=== PATIENT | male | born 1935 | race Caucasian/White ===

== ENCOUNTER 2017-08-12 14:33 | Inpatient (IN) | payer MEDICARE, OTHER ==
[2017-08-12] MEDS ORDERED: Sodium Chloride 0.9% 50 ML IV ONE (14:51)
[2017-08-12] MEDS ORDERED: Iodixanol 320 MG/ML 100 ML BOTTLE IV ONE (14:51)
[2017-08-12] MEDS: Sodium Chloride 0.9% 1,000 ML IV SCH (15:00)
--- NOTE | 2017-08-12 15:00 | ED PDOC ---
HPI:STROKE - Time Time: 14:43 - Historian Historian: Family, EMS - Chief Complaint Chief Complaint: Mental status change - Onset Date: 08/12/17 Onset: Hours - Timing Timing: Currently Symptomatic - Notes: Notes:: 82yo male, brought to ER for evaluation due to altered mental status. Patient was last seen normal at 12:30pm today by his granddaughter; per patient's granddaughter, she was informed at 1345 by her family member that they are calling the ambulance as the patient was altered. Per EMS patient was verbal en route to the ER however in the ER, the patient is non-verbal and AO X 0. Full HPI and ROS limited due to clinical condition. NIHSS Stroke Scale - Date/Time Evaluation Performed Date Performed: 08/12/17 Time Performed: 14:45 When Was NIHSS Performed: Code Stroke - How Severe is the Stroke Level of Consciousness: 0=Alert LOC to Questions: 2=Neither correct LOC to commands: 2=Neither correct Best Gaze: 0=Normal Visual: 0=No visual loss Facial: 2=Partial (lower face paralysis) Motor Arm - Left: 0=No drift Motor Arm - Right: 3=No effort against gravity (falls immediately) Motor Leg - Left: 3=No effort against gravity (falls immediately) Motor Leg - Right: 3=No effort against gravity (falls immediately) Limb Ataxia: 0=Absent Sensory: 0=Normal Best Language: 3=Mute Dysarthia: 0=Normal articulation Extinction & Inattention (Neglect): 0=Normal, no object Score: 18 NIHSS Stroke Scale 2 - Date/Time Evaluation Performed Date Performed: 08/12/17 Time Performed: 15:15 When Was NIHSS Performed: Re-evaluation - How Severe is the Stroke Level of Consciousness: 0=Alert LOC to Questions: 0=Both comments correct LOC to commands: 0=Obeys both correctly Best Gaze: 0=Normal Visual: 0=No visual loss Facial: 0=Normal Motor Arm - Left: 0=No drift Motor Arm - Right: 0=No drift Motor Leg - Left: 0=No drift Motor Leg - Right: 0=No drift Limb Ataxia: 0=Absent Sensory: 0=Normal Best Language: 0=No aphasia Dysarthia: 0=Normal articulation Extinction & Inattention (Neglect): 0=Normal, no object Score: 0 rTPA Inclusion/Exclusion - Refusal of Treatment Patient Refused Treatment: No - Inclusion Criteria for Altepase Patient is 18 years or Older: Yes The Clinical Diagnosis of Ischemic Stroke That is Causing a Potentially Disabling Neurological Deficit: No Time of Onset is Well Established to be Less Than 270 Minute Before Treatment Would Begin: Yes Risk/Benefit Discussed With Patient/Family Member Present: No - Warning to TPA With Conditions Condition: Rapid Improvement, Age Greater Than 75 years Past Medical History Reviewed: Historical Data, Nursing Documentation, Vital Signs - Medical History PMH: Arthritis, CAD, CHF, COPD, Diabetes (type II), HTN, Hypercholesterolemia, Malignancy (colon), Chronic Kidney Disease, TIA (Per history in ~1988) Denies: HIV - Surgical History Surgical History: Coronary Stent (x4) - Family History Family History: States: Unknown Family Hx - Home Medications Home Medications: Ambulatory Orders Medication Instructions Recorded Albuterol 0.083% [Albuterol 0.083% 3 ml IH Q6 PRN 08/12/17 Inhal Bere (2.5 mg/3 ml) UD] Carvedilol [Coreg] 12.5 mg PO Q12 08/12/17 Clopidogrel [Plavix] 75 mg PO DAILY 08/12/17 Ferrous Sulfate [Feosol] 325 mg PO TID 08/12/17 Fluticasone/Salmeterol 250/50 1 puff IH Q12 08/12/17 [Advair Diskus 250/50] Furosemide [Lasix] 80 mg PO DAILY 08/12/17 Insulin Aspart, Recombinant 20 unit SC BID 08/12/17 [Novolog] Latanoprost 0.005% Opht [Xalatan 1 drop EACHEYE HS 08/12/17 Opht] Lisinopril [Zestril] 20 mg PO DAILY 08/12/17 Multivitamin [Multi-Vitamin Daily] 1 tab PO DAILY 08/12/17 Simvastatin [Zocor] 20 mg PO HS 08/12/17 - Allergies Allergies/Adverse Reactions: Allergies Allergy/AdvReac Type Severity Reaction Status Date / Time morphine Allergy VOMITING Verified 02/02/16 19:03 Review of Systems Review Of Systems: ROS cannot be obtained secondary to pt's inabilty to answer questions. Neurological: Positive for: Altered Mental Status Physical Exam - Reviewed Nursing Documentation Reviewed: Yes Vital Signs Reviewed: Yes - Physical Exam Appears: Positive for: Well, No Acute Distress Head Exam: Positive for: ATRAUMATIC, NORMAL INSPECTION Skin: Positive for: Normal Color, Warm, Dry Eye Exam: Positive for: Normal appearance, EOMI, PERRL Neck: Positive for: Supple Cardiovascular/Chest: Positive for: Regular Rate, Rhythm Respiratory: Positive for: Normal Breath Sounds. Negative for: Wheezing Gastrointestinal/Abdominal: Positive for: Soft. Negative for: Tenderness Neurologic/Psych: Positive for: Facial Droop (right sided). Negative for: Alert , Oriented (x 0) - Laboratory Results Result Diagrams: 08/13/17 08:58 08/13/17 08:58 - ECG ECG: Positive for: Interpreted By Me, Viewed By Me ECG Rhythm: Positive for: Sinus Bradycardia Interpretation Of ECG: PVC's Rate: 58 O2 Sat by Pulse Oximetry: 97 (RA) Pulse Ox Interpretation: Normal - Core Measure Core Measure Indicators: Code Stroke - Critical Care Total Time (In Min): 45 Medical Decision Making Medical Decision Making: Impression: Stroke Plan: -- CT Head w/o contrast -- CTA head and neck -- Labs -- CXR -- EKG -- IV Fluids Progress: [address] Thomas, who will evaluate patient in the ER. 1455 CT Head FINDINGS: HEMORRHAGE: No intracranial hemorrhage. BRAIN: Mild diffuse cerebral atrophy chronic microangiopathy are reiterated and appear age-appropriate. No interval suspicious findings are identified that would indicate an acute or subacute brain infarction by standard CT criteria. Small chronic infarcts in the right frontal and upper left occipital lobes are identified as well as the pontine chronic lacune. No mass effect or suspicious extra-axial fluid collection. VENTRICLES: Unremarkable. No hydrocephalus. CALVARIUM: Unremarkable. PARANASAL SINUSES: Unremarkable as visualized. No significant inflammatory changes. MASTOID AIR CELLS: Unremarkable as visualized. No inflammatory changes. OTHER FINDINGS: None. IMPRESSION: Stable age related neuro degenerative changes are identified as well as a small chronic lobar infarctions at the right frontal and left occipital lobes and a pontine chronic lacune. No intracranial hemorrhage or mass effect. Follow-up CT or MRI are available as clinically warranted. Findings discussed with Dr. Jeffreis with written down and read back verification 08/12/2017 2:55 p.m.. 1531 CXR FINDINGS: LUNGS: No active pulmonary disease. PLEURA: No significant pleural effusion identified, no pneumothorax apparent. CARDIOVASCULAR: No sclerotic aortic calcifications. Cardiomediastinal silhouette stably enlarged. OSSEOUS STRUCTURES: Unchanged. VISUALIZED UPPER ABDOMEN: Left upper quadrant surgical clips. OTHER FINDINGS: None. IMPRESSION: No active disease. Accession No. : [id number] Patient Name / ID : MIKE CASTANEDA / [id number] Exam Date : 08/12/2017 14:53:11 ( Approved ) Study Comment : Sex / Age : M / 82Y Creator : Lalo Phipps MD Dictator : Lalo Phipps MD Polisher Eyeglass Frames : Hot Billet Shear Operator : Lalo Phipps MD Approver2 : Report Date : 08/12/2017 16:21:04 My Comment : PROCEDURE: CT Angiography of the Brain and Neck. HISTORY: R weakness COMPARISON: Carotid ultrasound 05/02/2011. TECHNIQUE: CT angiography of the intracranial and neck arteries was performed. Coronal and sagittal maximum intensity projection reformatted images were generated. Contrast Dose: Visipaque 320, 99 cc Radiation dose:Total exam DLP = 738.45 mGy-cm. This CT exam was performed using one or more of the following dose reduction techniques: Automated exposure control, adjustment of the mA and/or kV according to patient size, and/or use of iterative reconstruction technique. FINDINGS: INTERNAL CEREBRAL ARTERIES: There is [id number] atherosclerosis at the right ICA cavernous segment with the skull base, petrous, and supraclinoid segments otherwise widely patent. The proximal to mid skullbase left ICA is occluded with some retrograde filling by collateralization through the [place] Mishra into the left cavernous and distal mid skullbase segment. ANTERIOR CEREBRAL ARTERIES: Unremarkable. A1 and A2 segments are widely patent. Smaller distal branches unremarkable, as visualized. MIDDLE CEREBRAL ARTERIES: Subtle diminished attenuation of the left M1 and M2 is well as perisylvian branches of the MCA is apparent due to left ICA occlusion with collateralization affectively from the right ICA and communicating arteries. The left M1 and M2 ICA branches are widely opacified as well as perisylvian branches. POSTERIOR CIRCULATION: Basilar Artery: Unremarkable. Distal Vertebral Arteries: Unremarkable. Posterior Cerebral Arteries: Unremarkable. Posterior Inferior Cerebellar Arteries: Unremarkable. NECK CTA: Common Carotid arteries: The bilateral common carotid appear widely patent from their origins to their bifurcations with no significant stenosis appreciated. No evidence to suggest common carotid artery dissection. A right common carotid artery wall stent is identified. Internal Carotid arteries: No significant stenosis is appreciated throughout the right cervical internal carotid artery segments and there is no evidence of dissection either. 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 Wall stent is identified in the distal common carotid artery extending into the proximal right ICA. External Carotid arteries: Appear unremarkable bilaterally. Vertebral arteries: The bilateral vertebral arteries appear normal in caliber from their origins to their junction with the basilar artery. Limited proximal bilateral vertebral artery atherosclerosis noted. No significant stenosis or definite pattern of dissection. ANEURYSM/ VASCULAR MALFORMATIONS: None. OTHER FINDINGS: None. IMPRESSION: 1. Occluded left ICA, long-standing finding dating back at least to prior carotid ultrasound dated 05/02/2011. The left NATE and MCA are collateralized and patent without stenosis or occlusion. Left MCA opacification appears mildly diffusely diminished compared to contralateral right MCA and bilateral NATE enhancement. This may be a function of hypoplastic left posterior communicating artery. 2. 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 Patent right ICA and bilateral common carotid arteries throughout cervical distribution. Mild bilateral proximal vertebral artery atherosclerosis. Pt evaluated by Dr. Thomas in ED. 1532 Case discussed with FP resident, patient admitted under Dr. Brewer for TIA. Scribe attestation: Documented by Adrienne Perkins acting as a scribe for Elissa Jeffries MD. Provider attestation: All medical record entries made by the Scribe were at my direction and personally dictated by me. I have reviewed the chart and agree that the record accurately reflects my personal performance of the history, physical exam, medical decision making, and the department course for this patient. I have also personally directed, reviewed, and agree with the discharge instructions and disposition. Disposition - Clinical Impression Clinical Impression: TIA (transient ischemic attack) - Patient ED Disposition Is Patient to be Admitted: Yes - Disposition Disposition Time: 15:32 Condition: GUARDED - Pt Status Changed To: Hospital Disposition Of: Inpatient - Admit Certification Admit to Inpatient:: After my assessment, the patient will require hospitalization for at least two midnights. This is because of the severity of symptoms shown, intensity of services needed, and/or the medical risk in this patient being treated as an outpatient. - POA Present On Arrival: None
[2017-08-12 15:04] LABS: BASO % 0.7 % (0.0-2.0); EOS # 0.4 K/uL (0.0-0.7); EOS % 5.9 % (0.0-4.0); HEMOGLOBIN 10.6 g/dL (12.0-18.0); LYMPH # 1.2 K/uL (1.0-4.3); LYMPH % 19.3 % (20.0-40.0); MEAN CELL VOLUME 91.1 fl (80.0-94.0); MEAN CORPUSCULAR HEMOGLOBIN 30.8 pg (27.0-31.0); MEAN CORPUSCULAR HGB CONC 33.8 g/dL (33.0-37.0); MEAN PLATELET VOLUME 8.2 fl (7.2-11.7); MONO # 0.9 K/uL (0.0-0.8); MONO % 13.3 % (0.0-10.0); NEUT # 3.9 K/uL (1.8-7.0); NEUT % 60.8 % (50.0-75.0); RBC 3.45 Mil/uL (4.40-5.90); RED CELL DISTRIBUTION WIDTH 13.9 % (11.5-14.5); WHITE BLOOD COUNT 6.4 K/uL (4.8-10.8)
[2017-08-12 15:17] LABS: ALBUMIN 3.2 g/dL (3.5-5.0); CALCIUM 9.1 mg/dL (8.4-10.2)
[2017-08-12 15:18] LABS: INR 1.1 (0.9-1.2); PARTIAL THROMBOPLASTIN TIME 32.3 Seconds (25.6-37.1); PROTHROMBIN TIME 11.8 Seconds (9.8-13.1)
--- NOTE | 2017-08-12 15:28 | RAD ---
HISTORY: Code Stroke COMPARISON: Chest radiograph dated 02/02/2016. FINDINGS: LUNGS: No active pulmonary disease. PLEURA: No significant pleural effusion identified, no pneumothorax apparent. CARDIOVASCULAR: No sclerotic aortic calcifications. Cardiomediastinal silhouette stably enlarged. OSSEOUS STRUCTURES: Unchanged. VISUALIZED UPPER ABDOMEN: Left upper quadrant surgical clips. OTHER FINDINGS: None. IMPRESSION: No active disease.
[2017-08-12 15:31] LABS: TROPONIN I 0.058 ng/mL (0.00-0.120)
--- NOTE | 2017-08-12 15:59 | CP.PCM.CON ---
History of Present Illness - History of Present Illness History of Present Illness: Mr. Ibarra is an 82-year-old man with a past medical history of HTN, CAD, HLD, who was brought in by EMS for aphasia and right side weakness that was discovered at around 1:40 PM. According to the patient's daughter, he was normal at around 9 AM when she went to work. The patient was evaluated in the ED, and a "code stroke" was called. His NIHSS was [address] scan of the head did not show any acute findings. He returned to the ED after CT head, and by the time I saw him, all of his symptoms has resolved and he was back to baseline with an NIHSS of 0. He was not a candidate for IV tPA due to complete resolution of symptoms. Review of Systems - Review of Systems All systems: reviewed and no additional remarkable complaints except Past Patient History - Infectious Disease Hx of Infectious Diseases: None - Tetanus Immunizations Tetanus Immunization: Unknown - Past Medical History & Family History Past Medical History?: Yes - Past Social History Smoking Status: Former Smoker - CARDIAC Hx Congestive Heart Failure: Yes Hx Hypercholesterolemia: Yes Hx Hypertension: Yes - PULMONARY Hx Chronic Obstructive Pulmonary Disease (COPD): Yes - NEUROLOGICAL Hx Transient Ischemic Attacks (TIA): Yes (Per history in ~1988) - HEENT 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) Hx Cataracts: Yes (left eye) - RENAL Hx Chronic Kidney Disease: Yes - ENDOCRINE/METABOLIC Hx Diabetes Mellitus Type 2: Yes (On insulin at home) - HEMATOLOGICAL/ONCOLOGICAL Hx Human Immunodeficiency Virus (HIV): No - INTEGUMENTARY Hx Dermatological Problems: No - MUSCULOSKELETAL/RHEUMATOLOGICAL Hx Arthritis: Yes - GASTROINTESTINAL Hx Gastrointestinal Disorders: No - GENITOURINARY/GYNECOLOGICAL Hx Genitourinary Disorders: No - PSYCHIATRIC Hx Psychophysiologic Disorder: No Hx Substance Use: No - SURGICAL HISTORY Hx Coronary Stent: Yes (x4) - ANESTHESIA Hx Anesthesia: Yes Hx Anesthesia Reactions: No Meds Allergies/Adverse Reactions: Allergies Allergy/AdvReac Type Severity Reaction Status Date / Time morphine Allergy VOMITING Verified 02/02/16 19:03 - Medications Medications: Current Medications Sodium Chloride (Sodium Chloride 0.9%) 1,000 mls @ 100 mls/hr IV .Q10H TREY Physical Exam - Neurological Exam Neurological exam: Alert, CN II-XII Intact, Oriented x3, Reflexes Normal Additional comments: Normal neurological examination, with slightly slurred speech due to poor dentition. NIHSS is 0. Results - Vital Signs Recent Vital Signs: Last Vital Signs Temp 98.6 F 08/12/17 15:11 Pulse 60 08/12/17 15:52 Resp 25 H 08/12/17 15:52 BP 175/74 H 08/12/17 15:52 Pulse Ox 100 08/12/17 15:52 - Labs Result Diagrams: 08/12/17 14:35 08/12/17 14:35 Labs: Laboratory Results - last 24 hr 08/12/17 08/12/17 08/12/17 14:35 14:35 14:35 WBC 6.4 RBC 3.45 L Hgb 10.6 L D Hct 31.4 L MCV 91.1 MCH 30.8 MCHC 33.8 RDW 13.9 Plt Count 347 MPV 8.2 Neut % (Auto) 60.8 Lymph % (Auto) 19.3 L [place] % (Auto) 13.3 H Eos % (Auto) 5.9 H Baso % (Auto) 0.7 Neut # (Auto) 3.9 Lymph # (Auto) 1.2 [place] # (Auto) 0.9 H Eos # (Auto) 0.4 Baso # (Auto) 0.0 PT 11.8 INR 1.1 APTT 32.3 Sodium 138 Potassium 4.4 Chloride 105 Carbon Dioxide 28 Anion Gap 9 L BUN 26 H Creatinine 1.6 H Est GFR ( Amer) 50 Est GFR (Non-Af Amer) 42 POC Glucose (mg/dL) Random Glucose 136 H Calcium 9.1 Total Bilirubin 0.9 AST 32 ALT 29 Alkaline Phosphatase 83 Troponin I 0.0580 Total Protein 6.5 Albumin 3.2 L Globulin 3.3 Albumin/Globulin Ratio 1.0 Triglycerides 138 D Cholesterol 213 H LDL Cholesterol Direct 131 H HDL Cholesterol 27 L Blood Type Antibody Screen BBK History Checked 08/12/17 08/12/17 08/12/17 14:35 14:36 15:04 WBC RBC Hgb Hct MCV MCH MCHC RDW Plt Count MPV Neut % (Auto) Lymph % (Auto) [place] % (Auto) Eos % (Auto) Baso % (Auto) Neut # (Auto) Lymph # (Auto) [place] # (Auto) Eos # (Auto) Baso # (Auto) PT INR APTT Sodium Potassium Chloride Carbon Dioxide Anion Gap BUN Creatinine Est GFR ( Amer) Est GFR (Non-Af Amer) POC Glucose (mg/dL) 161 H 101 Random Glucose Calcium Total Bilirubin AST ALT Alkaline Phosphatase Troponin I Total Protein Albumin Globulin Albumin/Globulin Ratio Triglycerides Cholesterol LDL Cholesterol Direct HDL Cholesterol Blood Type Cancelled Antibody Screen Cancelled BBK History Checked Cancelled Assessment & Plan (1) TIA (transient ischemic attack) Assessment and Plan: The patient is high risk for stroke and should be admitted for further work-up and treatment. I recommend the followin. Telemetry 2. MRI of the brain without contrast 3. Load with Plavix 300 mg PO once and Aspirin 81 mg PO. Continue Aspirin 81 mg daily and Plavix 75 mg daily for 21 days 3. Check lipid panel, HbA1c, B12, folate, vitamin D levels 4. Fluids with NS at 100 mL/hr 5. Permissive HTN, (only treat BP higher than 220/110 mm Hg) 6. DVT Px 7. PT/OT eval and treatment if needed 8. Echocardiogram 9. Case management consult Thank you. Status: Acute Priority: High
--- NOTE | 2017-08-12 16:22 | CT ---
PROCEDURE: CT Angiography of the Brain and Neck. HISTORY: R weakness COMPARISON: Carotid ultrasound 05/02/2011. TECHNIQUE: CT angiography of the intracranial and neck arteries was performed. Coronal and sagittal maximum intensity projection reformatted images were generated. Contrast Dose: Visipaque 320, 99 cc Radiation dose:Total exam DLP = 738.45 mGy-cm. This CT exam was performed using one or more of the following dose reduction techniques: Automated exposure control, adjustment of the mA and/or kV according to patient size, and/or use of iterative reconstruction technique. FINDINGS: INTERNAL CEREBRAL ARTERIES: There is [id number] atherosclerosis at the right ICA cavernous segment with the skull base, petrous, and supraclinoid segments otherwise widely patent. The proximal to mid skullbase left ICA is occluded with some retrograde filling by collateralization through the [place] into the left cavernous and distal mid skullbase segment. ANTERIOR CEREBRAL ARTERIES: Unremarkable. A1 and A2 segments are widely patent. Smaller distal branches unremarkable, as visualized. MIDDLE CEREBRAL ARTERIES: Subtle diminished attenuation of the left M1 and M2 is well as perisylvian branches of the MCA is apparent due to left ICA occlusion with collateralization affectively from the right ICA and communicating arteries. The left M1 and M2 ICA branches are widely opacified as well as perisylvian branches. POSTERIOR CIRCULATION: Basilar Artery: Unremarkable. Distal Vertebral Arteries: Unremarkable. Posterior Cerebral Arteries: Unremarkable. Posterior Inferior Cerebellar Arteries: Unremarkable. NECK CTA: Common Carotid arteries: The bilateral common carotid appear widely patent from their origins to their bifurcations with no significant stenosis appreciated. No evidence to suggest common carotid artery dissection. A right common carotid artery wall stent is identified. Internal Carotid arteries: No significant stenosis is appreciated throughout the right cervical internal carotid artery segments and there is no evidence of dissection either. 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 Wall stent is identified in the distal common carotid artery extending into the proximal right ICA. External Carotid arteries: Appear unremarkable bilaterally. Vertebral arteries: The bilateral vertebral arteries appear normal in caliber from their origins to their junction with the basilar artery. Limited proximal bilateral vertebral artery atherosclerosis noted. No significant stenosis or definite pattern of dissection. ANEURYSM/ VASCULAR MALFORMATIONS: None. OTHER FINDINGS: None. IMPRESSION: 1. Occluded left ICA, long-standing finding dating back at least to prior carotid ultrasound dated 05/02/2011. The left NATE and MCA are collateralized and patent without stenosis or occlusion. Left MCA opacification appears mildly diffusely diminished compared to contralateral right MCA and bilateral NATE enhancement. This may be a function of hypoplastic left posterior communicating artery. 2. 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 Patent right ICA and bilateral common carotid arteries throughout cervical distribution. Mild bilateral proximal vertebral artery atherosclerosis.
[2017-08-12] MEDS ORDERED: Albuterol 0.083% Inhal Sol (2.5 mg/3 mL) UD IH PRN (17:20)
[2017-08-12] MEDS ORDERED: Enoxaparin 30 mg Syringe SC SCH (18:00)
--- NOTE | 2017-08-12 18:57 | CP.PCM.HP ---
History of Present Illness - History of Present Illness History of Present Illness: This is 82 y/o male with PMH of Diastolic Heart Failure, COPD, CAD s/p stent x 4 , CKD, DM2 on insulin, HTN, HLD, Colon CA s/p surgery (1961), TIA/CVA (1988), left eye blindness/diabetic retinopathy admitted for evaluation and treatment of TIA. Patient was helena in by EMS for aphasia and right side weakness that was discovered at around 1:40 PM. As per grand daughter, patient was fine till 11:00pm, he was c/o some weakness since yesterday but was able to verbally communicate until 11:00pm. Patient took his medication this afternoon and started feeling dizzy, patient was awake but unable to verbally communicate with family and was unable to move his body. Patient denies any chest apin, SOB , abdominal pain, urinary symptoms, palpitations or f/c/n/v. (Patient is a poor historian, grand daughter is present but not aware of his medical conditions, may talk to patient's daughter tomorrow for better PMH) PMD: [facility], last visit in 2016 PMH: Diastolic Heart Failure, COPD, CAD s/p stent x 4, CKD, DM2 on insulin, HTN, HLD , Colon CA s/p surgery (1961), TIA/CVA (1988), left eye blindness/diabetic retinopathy PSHx: Cardiac Cath, Stents placement Colon CA surgery (1961) - Type unclear FamHx: Father age 56 - Cause unknown Mother age 45 - [place] SocialHx: Lives with , kids, grandson Remote history of ETOH (beer) and Tobacco use --> States last use >40yrs ago before history of colon CA surgery Denied illicit drug use Currently on disability Allergy: Morphine - "Headache/N/V" Home Medication: See med recs ER Course: Afebrile, 60HR, 25RR, BP 175/74, Spo2 100% AO X 0 CT head: Stable age related neuro degenerative changes are identified as well as a small chronic lobar infarctions at the right frontal and left occipital lobes and a pontine chronic lacune. No intracranial hemorrhage or mass effect. Follow-up CT or MRI are available as clinically warranted. CXR: No active disease. CT head and neck: Occluded left ICA chronic, Mild proximal b/l vertebral artery atherosclerosis EKG:Sinus bradycardia with occasional premature ventricular complexes,Left ventricular hypertrophy with repolarization abnormality IVF S/p Aspirin 325mg NIHSS was 12 initially, NIHSS 0, No TPA Present on Admission - Present on Admission Any Indicators Present on Admission: No History of DVT/PE: No History of Uncontrolled Diabetes: No Urinary Catheter: No Decubitus Ulcer Present: No Past Patient History - Infectious Disease Hx of Infectious Diseases: None - Tetanus Immunizations Tetanus Immunization: Unknown - Past Medical History & Family History Past Medical History?: Yes - Past Social History Smoking Status: Former Smoker - CARDIAC Hx Cardiac Disorders: Yes - PULMONARY Hx Chronic Obstructive Pulmonary Disease (COPD): Yes - NEUROLOGICAL Hx Transient Ischemic Attacks (TIA): Yes (Per history in ~1988) - HEENT 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) Hx Cataracts: Yes (left eye) - RENAL Hx Chronic Kidney Disease: Yes - ENDOCRINE/METABOLIC Hx Diabetes Mellitus Type 2: Yes (On insulin at home) - HEMATOLOGICAL/ONCOLOGICAL Hx Human Immunodeficiency Virus (HIV): No - INTEGUMENTARY Hx Dermatological Problems: No - MUSCULOSKELETAL/RHEUMATOLOGICAL Hx Arthritis: Yes - GASTROINTESTINAL Hx Gastrointestinal Disorders: No - GENITOURINARY/GYNECOLOGICAL Hx Genitourinary Disorders: No - PSYCHIATRIC Hx Psychophysiologic Disorder: No - SURGICAL HISTORY Hx Coronary Stent: Yes (x4) - ANESTHESIA Hx Anesthesia: Yes Hx Anesthesia Reactions: No Meds Allergies/Adverse Reactions: Allergies Allergy/AdvReac Type Severity Reaction Status Date / Time morphine Allergy VOMITING Verified 02/02/16 19:03 Physical Exam - Constitutional Appears: No Acute Distress Additional comments: Verbally responsive, clear speech Follows command - Head Exam Head Exam: NORMAL INSPECTION - Eye Exam Eye Exam: EOMI Additional comments: left eye blindness Right eye, pinpoint pupil with minimum reaction to light - ENT Exam ENT Exam: Mucous Membranes Moist - Neck Exam Neck exam: Positive for: Normal Inspection - Respiratory Exam Respiratory Exam: Clear to Auscultation Bilateral, NORMAL BREATHING PATTERN. absent: Wheezes - Cardiovascular Exam Cardiovascular Exam: REGULAR RHYTHM - GI/Abdominal Exam GI & Abdominal Exam: Normal Bowel Sounds, Soft. absent: Distended, Hernia, Mass , Tenderness - Extremities Exam Additional comments: lower extremities atrophy (doesn't ambulate that much at home), dermatitis present b/l No edema, no open wound or bleeding, sensory intact b/l LE and UE - Back Exam Back exam: NORMAL INSPECTION. absent: CVA tenderness (L), CVA tenderness (R) Additional comments: B/l right UE and LE 3/5 B/l left UE and LE 4/5 - Neurological Exam Neurological exam: Alert, CN II-XII Intact, Oriented x3, Reflexes Normal Additional comments: Patient wasn't able to stand up without support, Couldn't assess Pronetor drift or gaits (As per patient, thats his baseline strength ) - Psychiatric Exam Psychiatric exam: Normal Affect, Normal Mood - Skin Skin Exam: Dry, Intact, Normal Color, Warm Results - Vital Signs Recent Vital Signs: Last Vital Signs Temp 97.5 F L 08/12/17 18:24 Pulse 63 08/12/17 18:24 Resp 20 08/12/17 18:24 BP 119/54 L 08/12/17 18:24 Pulse Ox 100 08/12/17 17:31 - Labs Result Diagrams: 08/12/17 14:35 08/12/17 14:35 Labs: Laboratory Results - last 24 hr 08/12/17 08/12/17 08/12/17 14:35 14:35 14:35 WBC 6.4 RBC 3.45 L Hgb 10.6 L D Hct 31.4 L MCV 91.1 MCH 30.8 MCHC 33.8 RDW 13.9 Plt Count 347 MPV 8.2 Neut % (Auto) 60.8 Lymph % (Auto) 19.3 L Bowman % (Auto) 13.3 H Eos % (Auto) 5.9 H Baso % (Auto) 0.7 Neut # (Auto) 3.9 Lymph # (Auto) 1.2 Bowman # (Auto) 0.9 H Eos # (Auto) 0.4 Baso # (Auto) 0.0 PT 11.8 INR 1.1 APTT 32.3 Sodium 138 Potassium 4.4 Chloride 105 Carbon Dioxide 28 Anion Gap 9 L BUN 26 H Creatinine 1.6 H Est GFR ( Amer) 50 Est GFR (Non-Af Amer) 42 POC Glucose (mg/dL) Random Glucose 136 H Calcium 9.1 Total Bilirubin 0.9 AST 32 ALT 29 Alkaline Phosphatase 83 Troponin I 0.0580 Total Protein 6.5 Albumin 3.2 L Globulin 3.3 Albumin/Globulin Ratio 1.0 Triglycerides 138 D Cholesterol 213 H LDL Cholesterol Direct 131 H HDL Cholesterol 27 L Blood Type Antibody Screen BBK History Checked 08/12/17 08/12/17 08/12/17 14:35 14:36 15:04 WBC RBC Hgb Hct MCV MCH MCHC RDW Plt Count MPV Neut % (Auto) Lymph % (Auto) Bowman % (Auto) Eos % (Auto) Baso % (Auto) Neut # (Auto) Lymph # (Auto) Bowman # (Auto) Eos # (Auto) Baso # (Auto) PT INR APTT Sodium Potassium Chloride Carbon Dioxide Anion Gap BUN Creatinine Est GFR ( Amer) Est GFR (Non-Af Amer) POC Glucose (mg/dL) 161 H 101 Random Glucose Calcium Total Bilirubin AST ALT Alkaline Phosphatase Troponin I Total Protein Albumin Globulin Albumin/Globulin Ratio Triglycerides Cholesterol LDL Cholesterol Direct HDL Cholesterol Blood Type Cancelled Antibody Screen Cancelled BBK History Checked Cancelled 08/12/17 15:48 WBC RBC Hgb Hct MCV MCH MCHC RDW Plt Count MPV Neut % (Auto) Lymph % (Auto) Bowman % (Auto) Eos % (Auto) Baso % (Auto) Neut # (Auto) Lymph # (Auto) Bowman # (Auto) Eos # (Auto) Baso # (Auto) PT INR APTT Sodium Potassium Chloride Carbon Dioxide Anion Gap BUN Creatinine Est GFR ( Amer) Est GFR (Non-Af Amer) POC Glucose (mg/dL) Random Glucose Calcium Total Bilirubin AST ALT Alkaline Phosphatase Troponin I Total Protein Albumin Globulin Albumin/Globulin Ratio Triglycerides Cholesterol LDL Cholesterol Direct HDL Cholesterol Blood Type O POSITIVE Antibody Screen Negative BBK History Checked Patient has bt Assessment & Plan - Assessment and Plan (Free Text) Assessment: A/P: 82 y/o male with PMH of Diastolic Heart Failure, COPD, CAD s/p stent x 4, CKD, DM2 on insulin, HTN, HLD, Colon CA s/p surgery (1961), TIA/CVA (1988), left eye blindness/diabetic retinopathy admitted for evaluation and treatment of aphasia and right side weakness . TIA - Improved - Initial NIHSS score 12 - NIHSS score 0 now - CT head: Stable age related neuro degenerative changes are identified as well as a small chronic lobar infarctions at the right frontal and left occipital lobes and a pontine chronic lacune. No intracranial hemorrhage or mass effect. Follow-up CT or MRI are available as clinically warranted. - CXR: No active disease. - CT head and neck: Occluded left ICA chronic, Mild proximal b/l vertebral artery atherosclerosis - EKG:Sinus bradycardia with occasional premature ventricular complexes,Left ventricular hypertrophy with repolarization abnormality - Consult, Neuro, Dr. Thomas, Recs appreciated - C/w IVF 100ml/hrs - Follow up B12, Folate, Vitamin D, HBA1C - Start Aspirin and Plavix - Treat BP if higher than 220/110 - Follow ECHO - Follow MRI brain w/o Cont - PT/OT evaluation - Daily Neuro check HTN - Uncontrolled - C/w home meds, Lisinopril 10daily, Carvidilol 12.5 BID - Monitor BP closely - Treat BP if higher than 220/110, as per neuro CAD s/p stent x 4 - EKG:Sinus bradycardia with occasional premature ventricular complexes,Left ventricular hypertrophy with repolarization abnormality - f/u ECHO - Continue Coreg, Statin, ASA and plavix History of Diastolic HF - Last ECHO from 11/2013 --> Normal LV syst function; Concentric LVH; Impaired Diastolic function - Follow up ECHO (08/13/17) - C/w Home meds Lasix 80mg PO daily - Continue Lipitor 40 mg, ASA 81mg - Out patient Cardiology: Dr. Carlos DM2 on insulin - C/w Home insulin - Correction scale - Follow up HBA1C DVT PPX - Lovenox 40mg daily
--- NOTE | 2017-08-12 20:14 | CP.PCM.PCO ---
Physician Communication Note - Physician Communication Note Physician Communication Note: paged by radiologist regarding MRI Brain results Assessment/Plan - Assessment and Plan (Free Text) Assessment: Brain MRI: small focus of acute stroke in region of the left temporal/occipital junction; no hemorrhage; multiple hyperintense T2/FLAIR foci statistically likely related to chronic microangiopathic ischemic changes given patients stated age Plan: -Results discussed with neurology: Dr. Thomas: will continue current management as patients symptoms have resolved and he is now at baseline; as stated prior patient was not a candidate for TPA due to full resolution of symptoms. - Date & Time Date: 08/12/17 Time: 20:00
[2017-08-12] MEDS: Fluticasone-Salmeterol 250-50mcg Diskus IH SCH (21:38)
[2017-08-12] MEDS: Enoxaparin 30 mg Syringe SC SCH (21:40)
[2017-08-12] MEDS: Latanoprost 0.005% Opht SOUTION OU SCH (21:41)
[2017-08-13] MEDS: Sodium Chloride 0.9% 1,000 ML IV SCH ×3 (02:37→23:02)
[2017-08-13] MEDS: Multivitamin With Minerals Tab PO SCH (08:26)
[2017-08-13] MEDS: Enoxaparin 30 mg Syringe SC SCH (08:26)
[2017-08-13] MEDS: Fluticasone-Salmeterol 250-50mcg Diskus IH SCH (08:27)
[2017-08-13 09:04] LABS: MEAN CELL VOLUME 90.8 fl (80.0-94.0); MEAN CORPUSCULAR HEMOGLOBIN 30.8 pg (27.0-31.0); MEAN CORPUSCULAR HGB CONC 33.9 g/dL (33.0-37.0); RBC 3.56 Mil/uL (4.40-5.90); RED CELL DISTRIBUTION WIDTH 14.4 % (11.5-14.5); WHITE BLOOD COUNT 7.3 K/uL (4.8-10.8)
[2017-08-13] MEDS: Insulin Lispro (humaLOG) 100 Units/ml Inj SC SCH ×4 (09:12→23:15)
[2017-08-13 09:19] LABS: ALBUMIN 3.4 g/dL (3.5-5.0)
--- NOTE | 2017-08-13 09:46 | CP.PCM.PN ---
Subjective - Date & Time of Evaluation Date of Evaluation: 08/13/17 Time of Evaluation: 09:46 - Subjective Subjective: Overnight pt was noted to have elevated BPs but mantained <220/110 per neuro. Additionally around early this AM, nurse saw new facial changes, droop and speech delayes. New CT head was ordered stat. Brain MRI from earlier was sig for small focus of acute stroke in region of the left temporal/occipital junction; no hemorrhage. This morning pt was seen and examined bedside. Pt does not seem to comprehend and is aphasic. Pt tries to speak when questioned, but not coherent. Moving his left upper and lower extremities more then the right. Denies headache, blurry vision, chest pain. Objective - Vital Signs/Intake and Output Vital Signs (last 24 hours): Temp Pulse Resp BP Pulse Ox 98.8 F 87 20 191/71 H 99 08/13/17 08:00 08/13/17 08:00 08/13/17 08:00 08/13/17 08:00 08/13/17 08:00 - Medications Medications: Current Medications Albuterol Sulfate (Albuterol 0.083% Inhal Bere (2.5 Mg/3 Ml) Ud) 2.5 mg IH Q6 PRN PRN Reason: Shortness of Breath Aspirin (Aspirin Chewable) 81 mg PO DAILY [facility] Last Admin: 08/13/17 08:27 Dose: 81 mg Atorvastatin Calcium (Lipitor) 40 mg PO DAILY [facility] Atorvastatin Calcium (Lipitor) 10 mg PO HS [facility] Last Admin: 08/12/17 21:41 Dose: 10 mg Carvedilol (Coreg) 12.5 mg PO Q12 [facility] Last Admin: 08/12/17 21:39 Dose: 12.5 mg Clopidogrel Bisulfate (Plavix) 75 mg PO DAILY [facility] Last Admin: 08/13/17 08:26 Dose: 75 mg Enoxaparin Sodium (Lovenox) 30 mg SC DAILY [facility] PRN Reason: Protocol Last Admin: 08/13/17 08:26 Dose: 30 mg Ferrous Sulfate (Feosol) 325 mg PO TID [facility] Last Admin: 08/13/17 08:26 Dose: 325 mg Furosemide (Lasix) 80 mg PO DAILY [facility] Sodium Chloride (Sodium Chloride 0.9%) 1,000 mls @ 100 mls/hr IV .Q10H [facility] Last Admin: 08/13/17 02:37 Dose: 100 mls/hr Insulin Human Lispro (Humalog) 20 units SC BID [facility] Latanoprost (Xalatan Opht) 1 drop OU HS [facility] Last Admin: 08/12/17 21:41 Dose: 1 drop Lisinopril (Zestril) 20 mg PO DAILY [facility] Multivitamins/Minerals (Therapeutic-M Tab) 1 tab PO DAILY [facility] Last Admin: 08/13/17 08:26 Dose: 1 tab Fluticasone/Salmeterol (Advair Diskus 250/50) 1 puff IH Q12 [facility] Last Admin: 08/13/17 08:27 Dose: 1 puff - Labs Labs: 08/13/17 08:58 08/13/17 08:58 PT 11.8 Seconds (9.8-13.1) 08/12/17 14:35 INR 1.1 (0.9-1.2) 08/12/17 14:35 APTT 32.3 Seconds (25.6-37.1) 08/12/17 14:35 - Constitutional Appears: No Acute Distress, Other (facial droop to right ) - Eye Exam Additional comments: Right eye is reactive to light Pt tracts with eye b/l baseline L eye blindness - ENT Exam ENT Exam: Mucous Membranes Moist - Respiratory Exam Respiratory Exam: Rhonchi (in the lower loes b/l), NORMAL BREATHING PATTERN - Cardiovascular Exam Cardiovascular Exam: REGULAR RHYTHM, +S1, +S2 - GI/Abdominal Exam GI & Abdominal Exam: Soft. absent: Tenderness Additional comments: abdominal hernia - Extremities Exam Extremities Exam: Normal Inspection (atrophied ). absent: Pedal Edema Additional comments: pt is noted to favor his L upper and lower extremities Not seen moving his R lower extremities, moving RUE but weaker then L IV on R hand - Neurological Exam Neurological Exam: Alert, Awake Additional comments: Unable to assess Cranial nerves, pt now following directions Assessment and Plan - Assessment and Plan (Free Text) Assessment: Assessment/Plan: 82 YO male with PMHz of Diastolic HF, COPD, CAD s/p stent x 4, CKD, DM2 on insulin, HTN, HLD, Colon CA s/p surgery (1961), TIA/CVA (1988), left eye blindness/diabetic retinopathy admitted for acute stroke. Acute Stroke, L temporal/occipital junction -MRI head; acute stroke in region of the left temporal/occipital junction; no hemorrhage. -initially on admission NIHSS score 12; subsequent at admission NIHSS score 0 -acute overnight findings of aphasia and facial drooping -CT head: Stable age related neuro degenerative changes are identified as well as a small chronic lobar infarctions at the right frontal and left occipital lobes and a pontine chronic lacune. No intracranial hemorrhage or mass effect. Follow-up CT or MRI are available as clinically warranted. -CXR: No active disease. -CTA head and neck: Occluded left ICA chronic, Mild proximal b/l vertebral artery atherosclerosis -EKG: Sinus bradycardia with occasional premature ventricular complexes,Left ventricular hypertrophy with repolarization abnormality -Repeat CT head: no acute intracranial findings. -Neuro on consult; aware of new changes; Dr. Thomas. Follow up recs -C/w IVF 100ml/hrs -vitamin D low, start Vit D daily -B12, Folate wnl. HBA1C 9.2 -c/w Aspirin and Plavix -Treat BP if higher than 220/110 -PT/OT evaluation -Daily Neuro check -pt failed repeat nursing swallow eval this AM -swallow eval and tx -NPO and IVF Low vitamin D -Vit D level <12.8 -will start 2000mg vit D daily HTN - Uncontrolled -C/w home meds, Lisinopril 10daily, Carvidilol 12.5 BID -Monitor BP closely -Treat BP if higher than 220/110, as per neuro CAD s/p stent x 4 -EKG:Sinus bradycardia with occasional premature ventricular complexes,Left ventricular hypertrophy with repolarization abnormality -echo normal LV, EF 55-60% -c/w Coreg, Statin, ASA and plavix History of Diastolic HF -Last ECHO from 11/2013 --> Normal LV syst function; Concentric LVH; Impaired Diastolic function -echo normal LV, EF 55-60% -C/w Home meds Lasix 80mg PO daily -Continue Lipitor 40 mg, ASA 81mg -Out patient Cardiology: Dr. Carlos DM2 on insulin -C/w Home insulin -Correction scale -HBA1C 9.2 DVT PPX -Lovenox 40mg daily
--- NOTE | 2017-08-13 09:59 | CT ---
PROCEDURE: CT HEAD WITHOUT CONTRAST. HISTORY: recurrent acute onset aphasia COMPARISON: CT head dated 08/12/2017. TECHNIQUE: Axial computed tomography images were obtained through the head/brain without intravenous contrast. Radiation dose: Total exam DLP = 1186.6 mGy-cm. This CT exam was performed using one or more of the following dose reduction techniques: Automated exposure control, adjustment of the mA and/or kV according to patient size, and/or use of iterative reconstruction technique. FINDINGS: HEMORRHAGE: No intracranial hemorrhage. BRAIN: No mass effect or edema. Atrophy. Chronic microvascular ischemic changes. Stable small chronic infarcts in the right frontal, upper left occipital lobes and kaushik. VENTRICLES: Prominent. No hydrocephalus. CALVARIUM: Unremarkable. PARANASAL SINUSES: Unremarkable as visualized. No significant inflammatory changes. MASTOID AIR CELLS: Unremarkable as visualized. No inflammatory changes. OTHER FINDINGS: None. IMPRESSION: No acute intracranial pathology. Stable age-related changes.
--- NOTE | 2017-08-13 09:59 | CARD ---
APPROVED REPORT EKG Measurement Heart [id number] <Conclusion> Sinus bradycardia with occasional premature ventricular complexes Left ventricular hypertrophy with repolarization abnormality Abnormal ECG
--- NOTE | 2017-08-13 10:58 | CARD ---
APPROVED REPORT EXAM: Two-dimensional and M-mode echocardiogram with Doppler and color Doppler. Other Information Quality : AverageRhythm : NSR INDICATION CVA/TIA 2D DIMENSIONS IVSd1.60 (0.7-1.1cm)LVDd4.07 (3.9-5.9cm) LVOT Diameter2.06 (1.8-2.4cm)PWd1.16 (0.7-1.1cm) IVSs1.59 (0.8-1.2cm)LVDs3.07 (2.5-4.0cm) FS (%) 24.5 %PWs1.81 (0.8-1.2cm) M-Mode DIMENSIONS Left Atrium (MM)4.03 (2.5-4.0cm)IVSd0.85 (0.7-1.1cm) Aortic Root3.18 (2.2-3.7cm)LVDd5.41 (4.0-5.6cm) Aortic Cusp Exc.1.68 (1.5-2.0cm)PWd1.24 (0.7-1.1cm) IVSs1.53 cmFS (%) 41 % LVDs3.21 (2.0-3.8cm)PWs1.50 cm Mitral Valve MV E Ebibtfrw99.4cm/sMV DECEL [id number] A Keqscfzp013.5cm/s MV ILI50ueX/A ratio0.6MVA (PHT)8.51cm2 TDI Lateral E' Peak V6.27cm/sMedial E' Peak V3.99cm/sE/Lateral E'12.7 E/Medial E'19.9 LEFT VENTRICLE The left ventricle is normal size. There is moderate asymmetric left ventricular hypertrophy. The left ventricular function is normal. The left ventricular ejection fraction is 55-60% There is normal LV segmental wall motion. Transmitral Doppler flow pattern is Grade I-abnormal relaxation pattern. No left ventricle thrombus noted on this study. There is no ventricular septal defect visualized. There is no left ventricular aneurysm. There is no mass noted in the left ventricle. RIGHT VENTRICLE The right ventricle is normal size. There is normal right ventricular wall thickness. The right ventricular systolic function is normal. ATRIA The left atrium size is normal. The right atrium size is normal. The interatrial septum is intact with no evidence for an atrial septal defect. AORTIC VALVE The aortic valve is mildly sclerotic. No aortic regurgitation is present. There is no aortic valvular stenosis. There is no aortic valvular vegetation. MITRAL VALVE Mitral annular calcification is moderate to severe. The mitral valve leaflets are calcified. There is extensive calcification of the mitral valve chrodae apparatus. There is no evidence of mitral valve prolapse. There is no mitral valve stenosis. There is no mitral valve regurgitation noted. TRICUSPID VALVE The tricuspid valve is normal in structure. There is no tricuspid valve regurgitation noted. There is no tricuspid valve prolapse or vegetation. There is no tricuspid valve stenosis. PULMONIC VALVE The pulmonary valve is normal in structure. There is no pulmonic valvular regurgitation. There is no pulmonic valvular stenosis. GREAT VESSELS The aortic root is normal in size. The ascending aorta is normal in size. The IVC is normal in size and collapses >50% with inspiration. PERICARDIAL EFFUSION The pericardium appears normal. There is no pleural effusion. <Conclusion> Normal LV systolic function Asymetric septal hypertrophy Mitral Annular Calcification Aortic Valve Sclerosis
--- NOTE | 2017-08-13 11:18 | MRI ---
PROCEDURE: MRI BRAIN WITHOUT CONTRAST HISTORY: TIA/Stroke COMPARISON: Noncontrast head CT 08/13/2017. TECHNIQUE: Multiplanar, multisequence MR images of the brain were obtained without intravenous contrast enhancement. FINDINGS: HEMORRHAGE: None DWI: Linear area of restricted diffusion is identified at the left temporooccipital junction corresponding to diminished density on CT and diminished T1 on MRI compatible with a likely subacute infarct a just under 1 cm greatest dimension. BRAIN PARENCHYMA: Relatively prominent white matter changes are identified in the periventricular and centrum semiovale space superiorly, suggestive of advanced chronic microangiopathy. There is also moderate diffuse cerebral atrophy. There are areas of subcortical signal change in volume loss at the posterior frontal lobes bilaterally as well as the right occipital lobe suggestive of additional chronic infarcts. Similar changes are present the left occipital lobe posteriorly. Multiple chronic lacunes are identified at the kaushik. Remainder the brainstem is unremarkable. Both cerebellar atrophy is noted with and a small left cerebellar chronic lacune is identified. 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 There is no mass effect or suspicious extra-axial collection. VENTRICLES: Unremarkable. No hydrocephalus. CRANIUM: Unremarkable. ORBITS: Grossly unremarkable. PARANASAL SINUSES/MASTOIDS: Left mastoid effusions are identified with minimal right maxillary sinusitis indicate postinflammatory changes in the bilateral frontal and multiple anterior ethmoid air cells. VASCULAR SYSTEM: Skull base flow voids intact. OTHER FINDINGS: 2131.2 cm lesion left parietal lobe, well-circumscribed. Consider possible lymph node or parotid gland mass. IMPRESSION: 1. A small subacute lacune is seen at the left temporooccipital junction with no additional acute infarction otherwise evident. 2. Multifocal small chronic infarcts are identified of the bilateral posterior frontal lobes, right greater than left, kaushik, left occipital lobe and medial left cerebellum. 3. Age-appropriate age related neuro degenerative changes are identified. 4. 2.3 cm left parotid lymph node or mass. Consider follow-up neck CT with contrast for greater characterization. Concordant preliminary report from [facility], 08/12/2017.
[2017-08-13 12:43] LABS: FOLATE > 20.0 ng/mL
[2017-08-13] MEDS ORDERED: Cholecalciferol 1,000 INTLU TAB PO SCH (13:30)
--- NOTE | 2017-08-13 14:03 | PQF ---
Kidney Disease, Chronic CKD Stage [id number] Chronic Kidney Disease (CKD) is documented in the Medical Record. Please specify the disease stage ( includes probable or suspected) Such as: -- Chronic kidney disease Stage 1 -- Chronic kidney disease Stage 2 -- Chronic kidney disease Stage 3 -- Chronic kidney disease Stage 4 -- Chronic kidney disease Stage 5 -- Chronic kidney disease Stage 5, requiring dialysis -- End Stage Renal Disease -- Other, please specify Stages are defined by the [employer] as follows: CKD Stage I GFR >= 90 ml / min per 1.73 m2 and persistent albuminuria CKD Stage 2 GFR between 60 and 89 with persistent albuminuria CKD Stage 3 GFR between 30 and 59 CKD Stage 4 GFR between 15 and 29 CKD Stage 5 GFR between <15 or End Stage Renal Disease The patient's Clinical Indicators include: H and P: PMH: includes: CKD BUN: 26->20 Creatinine:1.6->1.6 Est GFR ( Amer/Non-Af Amer): 50/42->50/42 Query created by: Olga Wu 08/13/2017@14:02 Electronically signed by: Elvia Brewer
--- NOTE | 2017-08-13 17:20 | CP.PCM.PN ---
Subjective - Date & Time of Evaluation Date of Evaluation: 08/13/17 Time of Evaluation: 13:00 - Subjective Subjective: Mr. Esa Banegas was seen and examined today at bedside. His daughter was present. This morning, at around 5 AM, the patient was noted to have worsening right side weakness and aphasia. He appears to be fluctuating now since his symptoms did improve since this morning. I reviewed the CTA findings with the family and staff. 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 He has a stent in the right carotid, which is patent, but his collateral circulation may be insufficient and as a result he is flow dependent. Objective - Vital Signs/Intake and Output Vital Signs (last 24 hours): Temp Pulse Resp BP Pulse Ox 98.6 F 76 16 178/70 H 100 08/13/17 16:30 08/13/17 16:30 08/13/17 16:30 08/13/17 16:30 08/13/17 16:30 - Medications Medications: Current Medications Albuterol Sulfate (Albuterol 0.083% Inhal Bere (2.5 Mg/3 Ml) Ud) 2.5 mg IH Q6 PRN PRN Reason: Shortness of Breath Aspirin (Aspirin Chewable) 81 mg PO DAILY [facility] Last Admin: 08/13/17 08:27 Dose: 81 mg Atorvastatin Calcium (Lipitor) 40 mg PO DAILY [facility] Last Admin: 08/13/17 09:50 Dose: 40 mg Carvedilol (Coreg) 12.5 mg PO Q12 [facility] Cholecalciferol (Vitamin D) 2,000 intlu PO DAILY [facility] Last Admin: 08/13/17 15:32 Dose: 2,000 intlu Clopidogrel Bisulfate (Plavix) 75 mg PO DAILY [facility] Last Admin: 08/13/17 08:26 Dose: 75 mg Enoxaparin Sodium (Lovenox) 30 mg SC DAILY [facility] PRN Reason: Protocol Ferrous Sulfate (Feosol) 325 mg PO TID [facility] Last Admin: 08/13/17 13:55 Dose: 325 mg Furosemide (Lasix) 80 mg PO DAILY [facility] Last Admin: 08/13/17 09:42 Dose: Not Given Sodium Chloride (Sodium Chloride 0.9%) 1,000 mls @ 100 mls/hr IV .Q10H [facility] Last Admin: 08/13/17 13:00 Dose: 100 mls/hr Insulin Human Lispro (Humalog) 20 units SC BID [facility] Last Admin: 08/13/17 09:12 Dose: Not Given Latanoprost (Xalatan Opht) 1 drop OU HS [facility] Last Admin: 08/12/17 21:41 Dose: 1 drop Lisinopril (Zestril) 20 mg PO DAILY [facility] Multivitamins/Minerals (Therapeutic-M Tab) 1 tab PO DAILY [facility] Last Admin: 08/13/17 08:26 Dose: 1 tab Fluticasone/Salmeterol (Advair Diskus 250/50) 1 puff IH Q12 [facility] Last Admin: 08/13/17 08:27 Dose: 1 puff - Labs Labs: 08/13/17 08:58 08/13/17 08:58 PT 11.8 Seconds (9.8-13.1) 08/12/17 14:35 INR 1.1 (0.9-1.2) 08/12/17 14:35 APTT 32.3 Seconds (25.6-37.1) 08/12/17 14:35 - Neurological Exam Neurological Exam: Altered, Awake, CN II-XII Intact Neuro motor strength exam: Left Upper Extremity: 5, Right Upper Extremity: 3, Left Lower Extremity: 5, Right Lower Extremity: 3 Additional comments: Productive aphasia, right facial droop. NIHSS = 9 Assessment and Plan (1) Ischemic stroke Assessment & Plan: The patient had a small left temporal parietal ischemic stroke, but now is fluctuating. Repeat CT scan did not show hemorrhagic conversion or extension. He is flow dependent and pressure dependent. I recommend continuing permissive hypertention for the next 24 hours. Do not treat BP that is lower than 220/110 mm Hg. After 24 hours, we may start treating BP that is higher than 180's systolic to avoid ischemic heart disease. Continue NS at 100 mL/hr. Continue aspirin 81 mg daily and Plavix 75 mg daily. If he fails swallow eval, we will start Integrillin. Keep head of bed at 15 degrees. Neurology will follow. Status: Acute
[2017-08-13] MEDS ORDERED: Etomidate 20 mg/10ml Inj IV ONE ×2 (21:32→21:34)
[2017-08-13] MEDS ORDERED: Propofol 10 mg/ml Inj (20 ML) IV ONE (21:32)
[2017-08-13] MEDS ORDERED: Propofol 10 mg/ml 1,000 MG/100 ML VIAL ONE (21:38)
[2017-08-13] MEDS ORDERED: Propofol 10 mg/ml Inj (100 ml) IV SCH (22:00)
[2017-08-13] MEDS: Propofol 10 mg/ml 1,000 MG/100 ML VIAL IV SCH (22:15)
[2017-08-13 22:39] LABS: ABG ALLEN TEST YES; ARTERIAL BLOOD GAS HEMOGLOBIN 11.4 g/dL (11.7-17.4); ARTERIAL BLOOD GAS O2 CAPACITY 16.6 mL/dL (16-24); ARTERIAL BLOOD GAS O2 CONTENT 16.6 ML/dL (15-23); ARTERIAL BLOOD GAS O2 SAT 100.2 % (95-98); ARTERIAL BLOOD GAS PCO2 48 mm/Hg (35-45); ARTERIAL BLOOD GAS PH 7.27 (7.35-7.45); ARTERIAL BLOOD GAS PO2 403 mm/Hg (80-100); ARTERIAL BLOOD GAS TCO2 23.5 mmol/L (22-28)
--- NOTE | 2017-08-13 22:46 | PCM.RRT ---
AUDIO/VISUAL OPERATOR Nurse Assessment - Situation AUDIO/VISUAL OPERATOR Reason for Call: Hypertension, Respiratory Distress, O2 Saturation below 90% , Change in Mental Status AUDIO/VISUAL OPERATOR Called By: RN - IV IV Inserted during AUDIO/VISUAL OPERATOR?: No - Respiratory Received Nebulizer Treatments: No Was the Patient Ventilated with Bag/Mask 100% O2?: Yes Secretions Suctioned?: Yes Was the Patient Intubated?: Yes (7.5 ETT/ 24 cm lipline) Was the Patient Placed on a Ventilator?: Yes (PRVC 14, TV 500, PEEP 5, FiO2 100% ) - Ventilator Settings Mode: PRVC/AC Ventilator Respiratory Rate Settin Ventilator Tidal Volume Settin PEEP/CPAP (cm H2O): 5 Pressure Support: 0 Peak Flow: 0 SAO2 %: 100 FIO2 (% Oxygen): 100 - Medication Medications Administered During AUDIO/VISUAL OPERATOR: diprivan - Diagnostic Test Ordered EKG: Yes Chest X-Ray: Yes CT Scan: Yes Other Diagnostic Test Ordered: CT head ordered - Stat Labs Ordered AUDIO/VISUAL OPERATOR Stat Labs Ordered: CBC, TROPONIN AUDIO/VISUAL OPERATOR Other Labs Ordered: CMP CPR started during AUDIO/VISUAL OPERATOR?: No - Vital Signs Vital Signs: Rapid Response Vital Sign Blood Pressure 205/92 Pulse Rate 120 Respiratory Rate 34 Temperature 99.2 F Oxygen Saturation 80 - Time AUDIO/VISUAL OPERATOR Ended Time AUDIO/VISUAL OPERATOR Ended: 22:00 - Vital Signs at end of AUDIO/VISUAL OPERATOR Vital Signs at end of AUDIO/VISUAL OPERATOR: Rapid Response End Vital Sign Blood Pressure 126/78 Pulse Rate 104 Respiratory Rate 30 Temperature 99.2 F O2 Sat by Pulse Oximetry 95 - Recommendations AUDIO/VISUAL OPERATOR Level of Care Recommendations: Transfer to ICU Plan - Assessment of Findings&Treatment Plan AUDIO/VISUAL OPERATOR AUDIO/VISUAL OPERATOR Time: 21:27 AUDIO/VISUAL OPERATOR Location: [facility] AUDIO/VISUAL OPERATOR Arrival: 21:28 AUDIO/VISUAL OPERATOR Reason: Altered mental status and oxygen desaturation S: 82 yo M with pmhx/o Diastolic HF, COPD, CAD s/p stent x 4, CKD, DM2 on insulin, HTN, HLD, Colon CA s/p surgery (1961), TIA/CVA (1988), left eye blindness/diabetic retinopathy admitted for acute stroke was noted to present with altered mental status and respiratory distress with oxygen desaturation to 80% O: AUDIO/VISUAL OPERATOR Vitals: BP: 205/92 HR: 120 RR: 34 O2 sat: 80% General: Altered, minimal responsiveness Cardiac: S1, S2 Resp: Decreased breath sounds; bag mask Abdo: soft, active bowel sounds AUDIO/VISUAL OPERATOR intervention: -STAT: EKG, Respiratory therapy -Propofol: 5 mg IV push at 21:40 -Intubated by Dr. Quiles @21:43 -Extubated at 21:46 due to poor air entry -Propofol: 5 mg IV push at 21:51 -Reintubated by Dr. Quiles @ 21:53 -O2 saturation improved to 94% -STAT orders: CT head w/o, CBC, CMP, Troponin, ABG (after 30 minutes of O2 support), portable CXR, lactic acid, protonix, -Transferred to ICU 434 -Dr. Quiles and Dr. Renae spoke to family with updates to plan A/P: 82 yo M with pmhx/o Diastolic HF, COPD, CAD s/p stent x 4, CKD, DM2 on insulin, HTN, HLD, Colon CA s/p surgery (1961), TIA/CVA (1988), left eye blindness/diabetic retinopathy admitted for acute stroke was noted to present with altered mental status and respiratory distress with oxygen desaturation to 80% -Spoke to Dr. Thomas, recommended follow up on CT and continue with permissive HTN AUDIO/VISUAL OPERATOR Outcome: -ICU 434-1: Under care of [facility] -FU CT, CXR, LABS; -AM: CXR and ABG AUDIO/VISUAL OPERATOR end vitals: 126/78; 110 bpm, O2: 98% intubated AUDIO/VISUAL OPERATOR Leader: Dr. Quiles AUDIO/VISUAL OPERATOR residents: Marii Renae MD PGY2, Shaw Thompson MD PGY1
--- NOTE | 2017-08-13 23:00 | PCM.PROC ---
Procedures Attestation:: I certify that I have explained the specified Operation(s) or Procedure(s), risks, benefits and reasonable alternatives to the Patient and/or other person responsible. The opportunity was given to ask questions and all questions answered - Intubation Time Out Performed: Yes Sedative: Other (Propofol) Mg Given: 50 mg Laryngoscope: Cheryl (Cheryl used for first attempt, failed. Glidescope used for 2nd attempt successfully.), Glidescope ET Tube Size: 7.5 ET Tube Secured at Depth: 26 ET Tube Secured Locarion: Lips ET Tube Placement Confirmation: Visualized Passing Through Cords, Breath Sounds Equal Bilaterally, Confirmation w/Capnometry Patient Tolerated Procedure: No Complications Procedure Immediate Complications: Difficult Intubation
--- NOTE | 2017-08-13 23:05 | CP.PCM.CON ---
History of Present Illness - History of Present Illness History of Present Illness: Critical care time spent: 60 minutes CC/Reason for ICU: VIDEO SURVEILLANCE TECHNICIAN with ams and AMS HPI: Briefly, this is an 82 y/o male with MHx significant for diastolic CHF, COPD, CAD/stents x 4, CKD, DM2, HTN, HLD, prior TIA; he was admitted for TIA workup and was actually found on MRI to have a CVA yesterday. This AM another VIDEO SURVEILLANCE TECHNICIAN was called for change in mental status, but did not show any changes. This evening, VIDEO SURVEILLANCE TECHNICIAN was called as patient became acutely less responsive, HTNsive to SBP 200+, and hypoxic to the 80s persistently. He appeared to be having difficulty breathing as well. Patient was intubated on the floor and transferred to ICU for stabilization and further workup. Family was present, and has been informed with patient condition. MHx: Diastolic CHF, COPD, CAD/stents x 4, CKD, DM2, HTN, HLD, prior TIA SHx: Cardiac cath/stents x 4, colon CA surgery Allergies: Morphine Medications: per active orders Fam/Soc Hx: Lives with family, cannot obtain other history Past Patient History - Infectious Disease Hx of Infectious Diseases: None - Tetanus Immunizations Tetanus Immunization: Unknown - Past Medical History & Family History Past Medical History?: Yes - Past Social History Smoking Status: Former Smoker - CARDIAC Hx Congestive Heart Failure: Yes Hx Hypercholesterolemia: Yes Hx Hypertension: Yes - PULMONARY Hx Chronic Obstructive Pulmonary Disease (COPD): Yes - NEUROLOGICAL Hx Transient Ischemic Attacks (TIA): Yes (Per history in ~1988) - HEENT 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) Hx Cataracts: Yes (left eye) - RENAL Hx Chronic Kidney Disease: Yes - ENDOCRINE/METABOLIC Hx Diabetes Mellitus Type 2: Yes (On insulin at home) - HEMATOLOGICAL/ONCOLOGICAL Hx Human Immunodeficiency Virus (HIV): No - INTEGUMENTARY Hx Dermatological Problems: No - MUSCULOSKELETAL/RHEUMATOLOGICAL Hx Arthritis: Yes - GASTROINTESTINAL Hx Gastrointestinal Disorders: No - GENITOURINARY/GYNECOLOGICAL Hx Genitourinary Disorders: No - PSYCHIATRIC Hx Substance Use: No - SURGICAL HISTORY Hx Coronary Stent: Yes (x4) - ANESTHESIA Hx Anesthesia: Yes Hx Anesthesia Reactions: No Meds Allergies/Adverse Reactions: Allergies Allergy/AdvReac Type Severity Reaction Status Date / Time morphine Allergy VOMITING Verified 02/02/16 19:03 - Medications Medications: Current Medications Albuterol Sulfate (Albuterol 0.083% Inhal Bere (2.5 Mg/3 Ml) Ud) 2.5 mg IH Q6 PRN PRN Reason: Shortness of Breath Aspirin (Aspirin Chewable) 81 mg PO DAILY [facility] Last Admin: 08/13/17 08:27 Dose: 81 mg Atorvastatin Calcium (Lipitor) 40 mg PO DAILY [facility] Last Admin: 08/13/17 09:50 Dose: 40 mg Carvedilol (Coreg) 12.5 mg PO Q12 [facility] Cholecalciferol (Vitamin D) 2,000 intlu PO DAILY [facility] Last Admin: 08/13/17 15:32 Dose: 2,000 intlu Clopidogrel Bisulfate (Plavix) 75 mg PO DAILY [facility] Last Admin: 08/13/17 08:26 Dose: 75 mg Enoxaparin Sodium (Lovenox) 30 mg SC DAILY [facility] PRN Reason: Protocol Ferrous Sulfate (Feosol) 325 mg PO TID [facility] Last Admin: 08/13/17 18:03 Dose: 325 mg Furosemide (Lasix) 80 mg PO DAILY [facility] Last Admin: 08/13/17 09:42 Dose: Not Given Sodium Chloride (Sodium Chloride 0.9%) 1,000 mls @ 100 mls/hr IV .Q10H [facility] Last Admin: 08/13/17 13:00 Dose: 100 mls/hr Propofol (Diprivan) 1,000 mg in 100 mls @ 2.085 mls/hr IV .Q24H TREY; 5 MCG/KG/ MIN PRN Reason: Protocol Stop: 08/14/17 22:11 Insulin Human Lispro (Humalog) 20 units SC BID [facility] Last Admin: 08/13/17 17:30 Dose: Not Given Insulin Human Lispro (Humalog) 0 units SC ACCU-CHECK [facility] PRN Reason: Protocol Latanoprost (Xalatan Opht) 1 drop OU HS [facility] Last Admin: 08/12/17 21:41 Dose: 1 drop Lisinopril (Zestril) 20 mg PO DAILY [facility] Multivitamins/Minerals (Therapeutic-M Tab) 1 tab PO DAILY [facility] Last Admin: 08/13/17 08:26 Dose: 1 tab Pantoprazole Sodium (Protonix Inj) 40 mg IVP DAILY [facility] Fluticasone/Salmeterol (Advair Diskus 250/50) 1 puff IH Q12 [facility] Last Admin: 08/13/17 08:27 Dose: 1 puff Physical Exam - Constitutional Additional comments: sedated - Head Exam Head Exam: ATRAUMATIC, NORMOCEPHALIC - ENT Exam ENT Exam: Mucous Membranes Moist - Respiratory Exam Additional comments: coarse breath sounds on vent, no wheezes or crackles - Cardiovascular Exam Cardiovascular Exam: REGULAR RHYTHM, +S1, +S2 - Extremities Exam Extremities exam: Positive for: normal inspection - Neurological Exam Additional comments: altered, appears awake but not responding meaningfully - Skin Skin Exam: Dry, Warm Results - Vital Signs Recent Vital Signs: Last Vital Signs Temp 98.5 F 08/13/17 22:05 Pulse 100 H 08/13/17 22:05 Resp 17 08/13/17 22:05 BP 93/55 L 08/13/17 22:05 Pulse Ox 100 08/13/17 22:05 - Labs Result Diagrams: 08/13/17 08:58 08/13/17 08:58 Labs: Laboratory Results - last 24 hr 08/12/17 08/13/17 08/13/17 22:03 04:20 04:20 WBC RBC Hgb Hct MCV MCH MCHC RDW Plt Count pCO2 pO2 HCO3 ABG pH ABG Total CO2 ABG O2 Saturation ABG O2 Content ABG Base Excess ABG Hemoglobin ABG Carboxyhemoglobin POC ABG HHb (Measured) ABG Methemoglobin ABG O2 Capacity Haseeb Test A-a O2 Difference Hgb O2 Saturation FiO2 Sodium Potassium Chloride Carbon Dioxide Anion Gap BUN Creatinine Est GFR ( Amer) Est GFR (Non-Af Amer) POC Glucose (mg/dL) 140 H Random Glucose Calcium Total Bilirubin AST ALT Alkaline Phosphatase Total Protein Albumin Globulin Albumin/Globulin Ratio Vitamin B12 427 25-OH Vitamin D Total < 12.8 L Folate > 20.0 08/13/17 08/13/17 08/13/17 05:20 08:58 08:58 WBC 7.3 RBC 3.56 L Hgb 11.0 L Hct 32.4 L MCV 90.8 MCH 30.8 MCHC 33.9 RDW 14.4 Plt Count 330 pCO2 pO2 HCO3 ABG pH ABG Total CO2 ABG O2 Saturation ABG O2 Content ABG Base Excess ABG Hemoglobin ABG Carboxyhemoglobin POC ABG HHb (Measured) ABG Methemoglobin ABG O2 Capacity Haseeb Test A-a O2 Difference Hgb O2 Saturation FiO2 Sodium 139 Potassium 4.1 Chloride 105 Carbon Dioxide 25 Anion Gap 13 BUN 20 Creatinine 1.6 H Est GFR ( Amer) 50 Est GFR (Non-Af Amer) 42 POC Glucose (mg/dL) 130 H Random Glucose 167 H Calcium 9.0 Total Bilirubin 0.8 AST 23 ALT 32 Alkaline Phosphatase 121 Total Protein 6.7 Albumin 3.4 L Globulin 3.3 Albumin/Globulin Ratio 1.0 Vitamin B12 25-OH Vitamin D Total Folate 08/13/17 08/13/17 08/13/17 11:03 16:04 20:30 WBC RBC Hgb Hct MCV MCH MCHC RDW Plt Count pCO2 48 H pO2 403 H HCO3 21.0 ABG pH 7.27 L ABG Total CO2 23.5 ABG O2 Saturation 100.2 H ABG O2 Content 16.6 ABG Base Excess -5.0 L ABG Hemoglobin 11.4 L ABG Carboxyhemoglobin 1.4 POC ABG HHb (Measured) -0.2 L ABG Methemoglobin 1.9 ABG O2 Capacity 16.6 Haseeb Test Yes A-a O2 Difference 250.0 Hgb O2 Saturation 96.9 FiO2 100.0 Sodium Potassium Chloride Carbon Dioxide Anion Gap BUN Creatinine Est GFR ( Amer) Est GFR (Non-Af Amer) POC Glucose (mg/dL) 191 H 193 H Random Glucose Calcium Total Bilirubin AST ALT Alkaline Phosphatase Total Protein Albumin Globulin Albumin/Globulin Ratio Vitamin B12 25-OH Vitamin D Total Folate 08/13/17 22:21 WBC RBC Hgb Hct MCV MCH MCHC RDW Plt Count pCO2 pO2 HCO3 ABG pH ABG Total CO2 ABG O2 Saturation ABG O2 Content ABG Base Excess ABG Hemoglobin ABG Carboxyhemoglobin POC ABG HHb (Measured) ABG Methemoglobin ABG O2 Capacity Haseeb Test A-a O2 Difference Hgb O2 Saturation FiO2 Sodium Potassium Chloride Carbon Dioxide Anion Gap BUN Creatinine Est GFR ( Amer) Est GFR (Non-Af Amer) POC Glucose (mg/dL) 226 H Random Glucose Calcium Total Bilirubin AST ALT Alkaline Phosphatase Total Protein Albumin Globulin Albumin/Globulin Ratio Vitamin B12 25-OH Vitamin D Total Folate - Imaging and Cardiology Chest x-ray Status: Image reviewed by me (ET tube positioned 4-5 cm above nikolai) Assessment & Plan (1) Unresponsive Assessment and Plan: 82 y/o male with recent CVA, with acute decline in mental status, respiratory distress and hypoxia. Possible extension of CVA vs. edema vs. bleeding, also concern for aspiration. -Patient intubated emergently -Transfer to ICU -Neurology updated with change in mental status -Repeat NCHCT and update neuro -Repeat CXR in AM -Stat CMP, CBC, Troponins, Lactic acid -Repeat Abg 1/2 hour post intubation and in AM -Ventilate A/C with VT 500, RR 14, FiO2 100%, and 0 peep to minimize lowering of BP -Sedation with IV propofol -GI PPx with IV protonix -Further mgmt to depend on outcome of imaging and labs -Mgmt of other issues per primary team Status: Acute (2) Respiratory distress Status: Acute
[2017-08-13] MEDS: Latanoprost 0.005% Opht SOUTION OU SCH (23:20)
[2017-08-13 23:23] LABS: BASO # 0.1 K/uL (0.0-0.2); BASO % 0.9 % (0.0-2.0); EOS # 0.3 K/uL (0.0-0.7); EOS % 3.2 % (0.0-4.0); HEMOGLOBIN 11.7 g/dL (12.0-18.0); LYMPH # 1.2 K/uL (1.0-4.3); MEAN CELL VOLUME 90.7 fl (80.0-94.0); MEAN CORPUSCULAR HEMOGLOBIN 31.6 pg (27.0-31.0); MEAN CORPUSCULAR HGB CONC 34.8 g/dL (33.0-37.0); MEAN PLATELET VOLUME 8.8 fl (7.2-11.7); MONO # 0.5 K/uL (0.0-0.8); MONO % 6.6 % (0.0-10.0); NEUT # 5.8 K/uL (1.8-7.0); NEUT % 74.3 % (50.0-75.0); NRBC % 0.1 % (0.0-0.0); RBC 3.71 Mil/uL (4.40-5.90); RED CELL DISTRIBUTION WIDTH 14.1 % (11.5-14.5); WHITE BLOOD COUNT 7.8 K/uL (4.8-10.8)
[2017-08-13 23:36] LABS: ALB/GLOB RATIO 1.1 (1.0-2.1); ALBUMIN 3.3 g/dL (3.5-5.0); CALCIUM 8.4 mg/dL (8.4-10.2)
[2017-08-13 23:43] LABS: TROPONIN I 0.105 ng/mL (0.00-0.120)
[2017-08-14 02:22] LABS: ABG ALLEN TEST YES; ARTERIAL BLOOD GAS HCO3 22.1 mmol/L (21-28); ARTERIAL BLOOD GAS O2 CAPACITY 15.7 mL/dL (16-24); ARTERIAL BLOOD GAS O2 CONTENT 15.8 ML/dL (15-23); ARTERIAL BLOOD GAS O2 SAT 100.4 % (95-98); ARTERIAL BLOOD GAS PCO2 42 mm/Hg (35-45); ARTERIAL BLOOD GAS PH 7.33 (7.35-7.45); ARTERIAL BLOOD GAS PO2 299 mm/Hg (80-100); ARTERIAL BLOOD GAS TCO2 23.4 mmol/L (22-28)
--- NOTE | 2017-08-14 04:01 | CP.PCM.PCO ---
Physician Communication Note - Physician Communication Note Physician Communication Note: post TECH BRAZER TESTER CT head w/o contrast results discussed with neurology Assessment/Plan - Assessment and Plan (Free Text) Assessment: CT showed left posterior high frontal loss of vidal-white differentiation not on prior CT of 08/13/17, worrisome for acute infarct. Plan: -recommendation is to continue present management, patient received prior scheduled dose of aspirin and plavix - Date & Time Date: 08/14/17 Time: 03:00
[2017-08-14 05:21] LABS: BASO # 0.1 K/uL (0.0-0.2); BASO % 0.4 % (0.0-2.0); EOS % 0.3 % (0.0-4.0); HEMOGLOBIN 11.8 g/dL (12.0-18.0); LYMPH % 5.9 % (20.0-40.0); MEAN CELL VOLUME 91.9 fl (80.0-94.0); MEAN CORPUSCULAR HEMOGLOBIN 30.8 pg (27.0-31.0); MEAN CORPUSCULAR HGB CONC 33.5 g/dL (33.0-37.0); MEAN PLATELET VOLUME 8.2 fl (7.2-11.7); MONO # 1.5 K/uL (0.0-0.8); MONO % 9.4 % (0.0-10.0); NEUT # 13.8 K/uL (1.8-7.0); NRBC % 0.1 % (0.0-0.0); PLATELET COUNT 323 K/uL (130-400); RBC 3.82 Mil/uL (4.40-5.90); RED CELL DISTRIBUTION WIDTH 14.2 % (11.5-14.5); WHITE BLOOD COUNT 16.4 K/uL (4.8-10.8)
[2017-08-14 05:22] LABS: CALCIUM 8.7 mg/dL (8.4-10.2)
[2017-08-14 05:59] LABS: ABG ALLEN TEST YES; ARTERIAL BLOOD GAS HCO3 21.4 mmol/L (21-28); ARTERIAL BLOOD GAS O2 CAPACITY 15.9 mL/dL (16-24); ARTERIAL BLOOD GAS O2 CONTENT 15.9 ML/dL (15-23); ARTERIAL BLOOD GAS O2 SAT 100.1 % (95-98); ARTERIAL BLOOD GAS PCO2 40 mm/Hg (35-45); ARTERIAL BLOOD GAS PH 7.33 (7.35-7.45); ARTERIAL BLOOD GAS PO2 338 mm/Hg (80-100); ARTERIAL BLOOD GAS TCO2 22.3 mmol/L (22-28)
[2017-08-14] MEDS: Propofol 10 mg/ml 1,000 MG/100 ML VIAL IV SCH (06:12)
[2017-08-14] MEDS: Insulin Lispro (humaLOG) 100 Units/ml Inj SC SCH ×4 (06:15→22:18)
--- NOTE | 2017-08-14 07:18 | CP.CCUPN ---
CCU Subjective - Physician Review Subjective (Free Text): 82M transferred to ICU post intubation after overnight QUARRYING SPECIALIST eval for AMS / CVA and hypoxemia. Now, sedated on moderate high dose Propofol. Breathing 14 on set rate 14, AC mode. Other vitals and I/O's reviewed. No fever spikes. SBP 170s, HR 70s in sinus , SPO2 100% on 80% oxytgen. ROS: No other pertinent negs or positives on 10+ system review from intuibated and sedated patient PMSFH: All other Nursing and physician documentation reviewed to date; no new pertinent info noted relevant to current medical problems. EXAM- HEENT: no icterus, no gaze preference, pupils equal and reactive NECK: No JVD, supple, carotids equal upstroke bilat/no bruits CHEST: clear bilat BS, no wheezes audible HEART: regular, distant, S1S2, no rubs or murmurs ABD: soft, no distention, no tympany, no palp tenderness, BS hypoactive EXT: Trace bilat edema. No peripheral/ digital cyanosis, no calf tenderness or palpable cords, distal pulses intact and symmetrical. NEURO: no focal motor deficits, +tone, withdraws all extremities to deep pain SKIN: no rashes, warm and dry. LABS: WBC= 16.4 HGB= 11.3 PLTs= 323K Mo=410 K= 4.1 UJ=116 HCO3= 20 BUN/Cr= 20/1.7 BS= 107 Trop neg x 2 EKG: - Sinus 101/min, T inversions laterally (my interp) CXR: ( my interp) ETT low near nikolai, PIPPA and scattered R sided interstitial changes. IMPRESSION / MAJOR PROBLEMS NOW: 1. Acute Resp Insuff 2 AMS, Pneumonia 2. CVA (Left Temp-Occip area) 3. Acclerated HTN 4. Azotemia 2 recent diuretic use 5. Mild DDysfx- No decompensated CHF. PLAN; 1. MV support Day #1, titrate FiO2 lower. 2. Sputum C&S, consider empiric abx coverage. For Aspiration and nosocomial organisms. 3. Minimize sedative-anxiolytics to assess for neuro-mental status. 4. Fluid challenge for oliguria, needs Johnson, r/o obstructive uropathy. 5. BP control with goal for MAP now at approx. 100, then gradual lowering. ASA and Plavix started. 6. No Advance Directives, otherwise Full Code status. CCU Objective - Vital Signs / Intake & Output Vital Signs (Last 4 hours): Vital Signs Temp Pulse Resp BP Pulse Ox 08/14/17 06:00 74 14 175/70 H 100 08/14/17 05:00 75 14 177/57 H 75 L 08/14/17 04:00 99.8 F H 77 14 169/72 H 100 Intake and Output (Last 8hrs): Intake & Output 08/13/17 08/14/17 08/14/17 22:59 06:59 14:59 Intake Total 100 Balance 100 Intake: IV 100
[2017-08-14 07:25] LABS: BANDS 1 % (0-2); LYMPHOCYTE 6 % (20-50); MONOCYTE 8 % (0-10); NEUTROPHIL 84 % (42-75); PLATELET ESTIMATE NORMAL (NORMAL); REACTIVE LYMPHOCYTES 1 % (0-0); TOTAL CELLS COUNTED 100
--- NOTE | 2017-08-14 07:25 | RAD ---
PROCEDURE: CHEST RADIOGRAPH, 1 VIEW HISTORY: intubation COMPARISON: Portable chest 08/13/2017. FINDINGS: Endotracheal and nasogastric tubes are unchanged in position. LUNGS: In infiltrates other developing in the right upper lobe abutting the minor fissure though atelectasis is possible. Borderline patchy infiltrate right lower lobe. Clinically correlate further. Limited left hemidiaphragm elevation is noted. PLEURA: No pneumothorax or pleural fluid seen. CARDIOVASCULAR: Normal. OSSEOUS STRUCTURES: No significant abnormalities. VISUALIZED UPPER ABDOMEN: Normal. OTHER FINDINGS: None. IMPRESSION: Right upper lobe infiltrate persists and may be slightly increased. Borderline patchy density right base.
[2017-08-14 07:28] LABS: ANISOCYTOSIS SLIGHT; HYPOCHROMIC SLIGHT
[2017-08-14 07:29] LABS: HELMET CELLS SLIGHT
--- NOTE | 2017-08-14 07:30 | RAD ---
PROCEDURE: CHEST RADIOGRAPH, 1 VIEW HISTORY: intubation COMPARISON: Portable chest 08/12/2017. FINDINGS: Endotracheal tube is now placed with the tip terminating 2.5 cm above the nikolai. Nasogastric tube is also identified placed coiled at the left upper quadrant abdomen likely in the gastric viscus. LUNGS: Infiltrates identified at the right upper and lower lobes with none on the left. PLEURA: No pneumothorax or pleural fluid seen. CARDIOVASCULAR: Normal. OSSEOUS STRUCTURES: No significant abnormalities. VISUALIZED UPPER ABDOMEN: Normal. OTHER FINDINGS: None. IMPRESSION: Right upper lower lobe infiltrates with endotracheal and nasogastric tubes adequately placed as discussed above.
[2017-08-14] MEDS ORDERED: Enoxaparin 30 mg Syringe SC SCH (09:00)
[2017-08-14] MEDS ORDERED: Enoxaparin 40 mg Syringe SC SCH (09:00)
--- NOTE | 2017-08-14 09:21 | CP.PCM.PN ---
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 Pt was found to be hypoxia and not able to protein airway, at the time pt was intubated, sedated and transfered to ICU for further management. A repeat CT head was done due to acute change in mental status; findings sig for CT showed left posterior high frontal loss of vidal-white differentiation not on prior CT of 08/13/17, worrisome for acute infarct. This morning, pt seen and examined by bedside AM. Pt responds to name, following commands, light sedation. Objective - Vital Signs/Intake and Output Vital Signs (last 24 hours): Temp Pulse Resp BP Pulse Ox 99.5 F 64 12 158/64 H 100 08/14/17 08:00 08/14/17 09:00 08/14/17 09:00 08/14/17 09:00 08/14/17 09:00 Intake and Output: 08/14/17 08/14/17 06:59 18:59 Intake Total 100 Balance 100 - Medications Medications: Current Medications Albuterol Sulfate (Albuterol 0.083% Inhal Bere (2.5 Mg/3 Ml) Ud) 2.5 mg IH Q6 PRN PRN Reason: Shortness of Breath Aspirin (Aspirin Chewable) 81 mg PO DAILY [facility] Last Admin: 08/13/17 08:27 Dose: 81 mg Atorvastatin Calcium (Lipitor) 40 mg PO DAILY [facility] Last Admin: 08/13/17 09:50 Dose: 40 mg Carvedilol (Coreg) 12.5 mg PO Q12 [facility] Cholecalciferol (Vitamin D) 2,000 intlu PO DAILY [facility] Last Admin: 08/13/17 15:32 Dose: 2,000 intlu Clopidogrel Bisulfate (Plavix) 75 mg PO DAILY [facility] Last Admin: 08/13/17 08:26 Dose: 75 mg Enoxaparin Sodium (Lovenox) 30 mg SC DAILY [facility] PRN Reason: Protocol Ferrous Sulfate (Feosol) 325 mg PO TID [facility] Last Admin: 08/13/17 18:03 Dose: 325 mg Furosemide (Lasix) 80 mg PO DAILY [facility] Last Admin: 08/13/17 09:42 Dose: Not Given Furosemide (Lasix) 40 mg IV DAILY [facility] Sodium Chloride (Sodium Chloride 0.9%) 1,000 mls @ 100 mls/hr IV .Q10H [facility] Last Admin: 08/13/17 23:02 Dose: 100 mls/hr Propofol (Diprivan) 1,000 mg in 100 mls @ 2.085 mls/hr IV .Q24H [facility]; 5 MCG/KG/ MIN PRN Reason: Protocol Stop: 08/14/17 22:11 Last Admin: 08/14/17 06:12 Dose: 20 mcg/kg/min, 8.339 mls/hr Insulin Human Lispro (Humalog) 20 units SC BID [facility] Last Admin: 08/13/17 17:30 Dose: Not Given Insulin Human Lispro (Humalog) 0 units SC ACCU-CHECK [facility] PRN Reason: Protocol Last Admin: 08/14/17 06:15 Dose: 2 units Latanoprost (Xalatan Opht) 1 drop OU HS [facility] Last Admin: 08/13/17 23:20 Dose: 1 drop Lisinopril (Zestril) 20 mg PO DAILY [facility] Multivitamins/Minerals (Therapeutic-M Tab) 1 tab PO DAILY [facility] Last Admin: 08/13/17 08:26 Dose: 1 tab Pantoprazole Sodium (Protonix Inj) 40 mg IVP DAILY [facility] Fluticasone/Salmeterol (Advair Diskus 250/50) 1 puff IH Q12 [facility] Last Admin: 08/13/17 08:27 Dose: 1 puff - Labs Labs: 08/14/17 04:55 08/14/17 04:55 PT 11.8 Seconds (9.8-13.1) 08/12/17 14:35 INR 1.1 (0.9-1.2) 08/12/17 14:35 APTT 32.3 Seconds (25.6-37.1) 08/12/17 14:35 - Constitutional Appears: No Acute Distress, Other (light sedation ) - Head Exam Head Exam: NORMAL INSPECTION Additional comments: pt is intubated - Eye Exam Additional comments: Baseline L eye blindness opens eyes and tracts - Respiratory Exam Respiratory Exam: NORMAL BREATHING PATTERN Additional comments: course breathing sounds b/l - Cardiovascular Exam Cardiovascular Exam: REGULAR RHYTHM, +S1, +S2 - GI/Abdominal Exam GI & Abdominal Exam: Soft, Normal Bowel Sounds. absent: Distended - Extremities Exam Extremities Exam: absent: Pedal Edema Additional comments: SCDs on moving LLE and and LUE more then R side IV L hand 1x IV R hand x 2 (using) - Neurological Exam Neurological Exam: Alert, Awake, Oriented x3 - Psychiatric Exam Psychiatric exam: Normal Affect, Normal Mood - Skin Skin Exam: Dry, Intact, Normal Color, Warm Assessment and Plan - Assessment and Plan (Free Text) Assessment: Assessment/Plan: 82 YO male with PMHz of Diastolic HF, COPD, CAD s/p stent x 4, CKD, DM2 on insulin, HTN, HLD, Colon CA s/p surgery (1961), TIA/CVA (1988), left eye blindness/diabetic retinopathy admitted for acute stroke. Admission complicated by subsequent stroke, hypoxia requiring intubation. Acute Stroke, L temporal/occipital junction (08/12) and acute infract L frontal lobe (08/13) -MRI head 08/12; acute stroke in region of the left temporal/occipital junction; no hemorrhage. -CTA head and neck 08/12: Occluded left ICA chronic, Mild proximal b/l vertebral artery atherosclerosis -EKG 08/12: Sinus bradycardia with occasional premature ventricular complexes, Left ventricular hypertrophy with repolarization abnormality -Repeat CT 08/13: acute infract left frontal lobe -Neuro on consult; change aspirin po to MD until ogt/ NGT inserted, permissive HTN until 12 noon today, blood pressure and glycemic control. If the patient further declines with mental status, to repeat CT scan of the head without contrast. -c/w Aspirin and Plavix -PO meds on hold until NG is placed -Treat BP if higher than 220/110 until afternoon -PT/OT evaluation -NPO, IVF, intubation, propofol Pneumonia, RUL -Chest x-ray 08/14/17; RUL infiltrate -likely aspiration pneumonia -finding not seen on chest xray 08/12 -WBC elevated today, 16.4 with increase neutrophils -remains afebrile, currently intubated -will start abx; ceftriaxone and azithromycin -ID and pulmonary consulted; follow up recs Hypoxia -O2 down to low 80's during REAL ESTATE ADMINISTRATIVE ASSISTANT -intubation, propofol -O2 100% -Ventilate A/C: Rate 14, Peep 5, FiO2 50 Vt 500 -will wean off as tolerated today Low vitamin D -Vit D level <12.8 -c/w 2000mg vit D daily HTN - Uncontrolled -C/w home meds, Lisinopril 10daily, Carvidilol 12.5 BID -Monitor BP closely -Treat BP if higher than 220/110, permissive HTN until 12 noon today as per neuro CAD s/p stent x 4 -EKG:Sinus bradycardia with occasional premature ventricular complexes,Left ventricular hypertrophy with repolarization abnormality -echo normal LV, EF 55-60% -c/w Coreg, Statin, ASA and plavix History of Diastolic HF -Last ECHO from 11/2013 --> Normal LV syst function; Concentric LVH; Impaired Diastolic function -echo normal LV, EF 55-60% -C/w Home meds Lasix 80mg PO daily -Continue Lipitor 40 mg, ASA 81mg -Out patient Cardiology: Dr. Carlos DM2 on insulin -C/w Home insulin -Correction scale -HBA1C 9.2 DVT PPX -Lovenox 40mg daily
--- NOTE | 2017-08-14 09:44 | CP.PCM.PN ---
Subjective - Date & Time of Evaluation Date of Evaluation: 08/14/17 Time of Evaluation: 09:43 - Subjective Subjective: Mr. Fred Banegas was seen and examined at the bedside in ICU. He is on mechanical ventilator on PRVC mode. He opens his eyes spontaneously with both verbal and tactile stimuli, His left eye is dilated and non reactive while right eye is pinpoint sluggish to react. He is on propofol for sedation and bilateral wrist restraints for patient safety. He is able to follow simple commands such as opening his mouth, squeezing his hand, elevated all his extremities with noticeable weakness on the right side. He remains on bilateral lower extremities SCD and hollis catheter draining to a clear yellow urine but with minimal blood noted in the penile area, per staff, hollis catheter was a traumatic insertion. 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 distress. repeat CT scan of the head without contrast was also done. Objective - Vital Signs/Intake and Output Vital Signs (last 24 hours): Temp Pulse Resp BP Pulse Ox 99.5 F 64 12 158/64 H 100 08/14/17 08:00 08/14/17 09:00 08/14/17 09:00 08/14/17 09:00 08/14/17 09:00 Intake and Output: 08/14/17 08/14/17 06:59 18:59 Intake Total 100 10 Balance 100 10 - Medications Medications: Current Medications Albuterol Sulfate (Albuterol 0.083% Inhal Bere (2.5 Mg/3 Ml) Ud) 2.5 mg IH Q6 PRN PRN Reason: Shortness of Breath Aspirin (Aspirin Chewable) 81 mg PO DAILY [facility] Last Admin: 08/13/17 08:27 Dose: 81 mg Atorvastatin Calcium (Lipitor) 40 mg PO DAILY [facility] Last Admin: 08/13/17 09:50 Dose: 40 mg Carvedilol (Coreg) 12.5 mg PO Q12 [facility] Cholecalciferol (Vitamin D) 2,000 intlu PO DAILY [facility] Last Admin: 08/13/17 15:32 Dose: 2,000 intlu Clopidogrel Bisulfate (Plavix) 75 mg PO DAILY [facility] Last Admin: 08/13/17 08:26 Dose: 75 mg Enoxaparin Sodium (Lovenox) 30 mg SC DAILY [facility] PRN Reason: Protocol Ferrous Sulfate (Feosol) 325 mg PO TID [facility] Last Admin: 08/13/17 18:03 Dose: 325 mg Furosemide (Lasix) 80 mg PO DAILY [facility] Last Admin: 08/13/17 09:42 Dose: Not Given Furosemide (Lasix) 40 mg IV DAILY [facility] Sodium Chloride (Sodium Chloride 0.9%) 1,000 mls @ 100 mls/hr IV .Q10H [facility] Last Admin: 08/13/17 23:02 Dose: 100 mls/hr Propofol (Diprivan) 1,000 mg in 100 mls @ 2.085 mls/hr IV .Q24H [facility]; 5 MCG/KG/ MIN PRN Reason: Protocol Stop: 08/14/17 22:11 Last Titration: 08/14/17 08:25 Dose: 15 mcg/kg/min, 6.254 mls/hr Insulin Human Lispro (Humalog) 20 units SC BID [facility] Last Admin: 08/13/17 17:30 Dose: Not Given Insulin Human Lispro (Humalog) 0 units SC ACCU-CHECK [facility] PRN Reason: Protocol Last Admin: 08/14/17 06:15 Dose: 2 units Latanoprost (Xalatan Opht) 1 drop OU HS [facility] Last Admin: 08/13/17 23:20 Dose: 1 drop Lisinopril (Zestril) 20 mg PO DAILY [facility] Multivitamins/Minerals (Therapeutic-M Tab) 1 tab PO DAILY [facility] Last Admin: 08/13/17 08:26 Dose: 1 tab Pantoprazole Sodium (Protonix Inj) 40 mg IVP DAILY [facility] Fluticasone/Salmeterol (Advair Diskus 250/50) 1 puff IH Q12 [facility] Last Admin: 08/13/17 08:27 Dose: 1 puff - Labs Labs: 08/14/17 04:55 08/14/17 04:55 PT 11.8 Seconds (9.8-13.1) 08/12/17 14:35 INR 1.1 (0.9-1.2) 08/12/17 14:35 APTT 32.3 Seconds (25.6-37.1) 08/12/17 14:35 - Constitutional Appears: No Acute Distress - Head Exam Head Exam: NORMAL INSPECTION - Eye Exam Pupil Exam: Irregular Additional comments: left eye 4 mm non reactive, right eye 2 mm miosis, sluggish - Neurological Exam Neurological Exam: Awake Neuro motor strength exam: Left Upper Extremity: 4, Right Upper Extremity: 2/1, Left Lower Extremity: 4, Right Lower Extremity: 2/1 Additional comments: right side weakness, able to follow some commands even with sedation. Assessment and Plan (1) Ischemic stroke Assessment & Plan: Case discussed with Dr. Thomas, continue all current medical, physical, and occupational therapies. Pending CT scan of the head without contrast result.Recommend ventilator management by ICU team, monitor further bleeding at the penile area, if stable to change aspirin po to SC until ogt/ NGT inserted, permissive HTN until 12 noon today, blood pressure and glycemic control. If the patient further declines with mental status, to repeat CT scan of the head without contrast. Status: Acute
--- NOTE | 2017-08-14 10:29 | CT ---
PROCEDURE: CT HEAD WITHOUT CONTRAST. HISTORY: ams, intubation COMPARISON: None available. TECHNIQUE: Axial computed tomography images were obtained through the head/brain without intravenous contrast. Radiation dose: Total exam DLP = 1002.53 mGy-cm. This CT exam was performed using one or more of the following dose reduction techniques: Automated exposure control, adjustment of the mA and/or kV according to patient size, and/or use of iterative reconstruction technique. FINDINGS: HEMORRHAGE: No intracranial hemorrhage. BRAIN: Age-related diffuse cerebral atrophy chronic microangiopathy are reiterated as well as a chronic infarct in the left occipital lobe. However, there is now all obscuring of the corticomedullary differentiation and local loss of sulcation at a small segment of the posterior left frontal lobe suspicious for a subacute or acute infarct. Follow-up MRI is advised for greater characterization. The remaining lobes of the brain appear otherwise stable including the posterior fossa contents and brainstem. There is no suspicious extra-axial fluid collection or global mass effect appreciable. VENTRICLES: Unremarkable. No hydrocephalus. CALVARIUM: Unremarkable. PARANASAL SINUSES: Trace bilateral sphenoid and ethmoid as well as right maxillary sinus disease appreciable. MASTOID AIR CELLS: Unremarkable as visualized. No inflammatory changes. OTHER FINDINGS: None. IMPRESSION: Findings suspicious for subacute or acute infarct left frontal lobe. Follow-up CT or MRI is recommended. Stable age-related degenerative change are identified throughout the cerebral hemispheres as well as chronic lobar infarction left occipital lobe. Concordant preliminary report from [facility], 08/14/2017.
[2017-08-14] MEDS: Enoxaparin 30 mg Syringe SC SCH (10:36)
--- NOTE | 2017-08-14 11:42 | CARD ---
APPROVED REPORT EKG Measurement Heart [id number] <Conclusion> Sinus tachycardia ST & T wave abnormality, consider inferolateral ischemia Abnormal ECG
[2017-08-14] MEDS ORDERED: Azithromycin 500 MG in Sodium Chloride 0.9% 250 ML IVPB SCH (11:45)
--- NOTE | 2017-08-14 12:32 | CP.PCM.CON ---
History of Present Illness - History of Present Illness History of Present Illness: Infectious Disease Consultation Note- asked to see this patient at the request of Dr.Pierre Moyer for aspiration pneumonia and help with antibiotic management. HPI- History obtained from patient's son who is at bedside and the medical chart since pt. is Intubated. Patient is a 82 year old male with PMH of HTN, DM II, CAD s/p stents, CHF, COPD , CKD who was admitted for TIA workup and was found to have CVA yesterday and this am had AIX ARCHITECT and change in mental status and hypoxic and was intubated and questionable aspiration. Pt. is currently in ICU and intubated but he is awake and alert and follows commands. he has right hemiparesis. he denies any pain , denies any fever or chills. MHx: Diastolic CHF, COPD, CAD/stents x 4, CKD, DM2, HTN, HLD, prior TIA SHx: Cardiac cath/stents x 4, colon CA surgery Allergies: Morphine Medications: per active orders Fam/Soc Hx: Lives with family Review of Systems - Review of Systems Review of Systems: ROS- denies any fever or chills, denies any MCKEON, denies any cough prior to intubation or at home, denies any chest pain, denies any abd pain, denies any diarrhea Past Patient History - Infectious Disease Hx of Infectious Diseases: None - Tetanus Immunizations Tetanus Immunization: Unknown - Past Medical History & Family History Past Medical History?: Yes - Past Social History Smoking Status: Former Smoker Home Situation {Lives}: With Family - CARDIAC Hx Congestive Heart Failure: Yes Hx Hypercholesterolemia: Yes Hx Hypertension: Yes - PULMONARY Hx Chronic Obstructive Pulmonary Disease (COPD): Yes - NEUROLOGICAL Hx Transient Ischemic Attacks (TIA): Yes (Per history in ~1988) - HEENT 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) Hx Cataracts: Yes (left eye) - RENAL Hx Chronic Kidney Disease: Yes - ENDOCRINE/METABOLIC Hx Diabetes Mellitus Type 2: Yes (On insulin at home) - HEMATOLOGICAL/ONCOLOGICAL Hx Blood Disorders: No - INTEGUMENTARY Hx Dermatological Problems: No - MUSCULOSKELETAL/RHEUMATOLOGICAL Hx Arthritis: Yes - GASTROINTESTINAL Hx Gastrointestinal Disorders: No - GENITOURINARY/GYNECOLOGICAL Hx Genitourinary Disorders: No - PSYCHIATRIC Hx Substance Use: No - SURGICAL HISTORY Hx Coronary Stent: Yes (x4) - ANESTHESIA Hx Anesthesia: Yes Hx Anesthesia Reactions: No Meds Allergies/Adverse Reactions: Allergies Allergy/AdvReac Type Severity Reaction Status Date / Time morphine Allergy VOMITING Verified 02/02/16 19:03 - Medications Medications: Current Medications Albuterol Sulfate (Albuterol 0.083% Inhal Bere (2.5 Mg/3 Ml) Ud) 2.5 mg IH Q6 PRN PRN Reason: Shortness of Breath Aspirin (Aspirin Chewable) 81 mg PO DAILY [facility] Last Admin: 08/13/17 08:27 Dose: 81 mg Aspirin (Aspirin Supp) 300 mg RC DAILY [facility] Atorvastatin Calcium (Lipitor) 40 mg PO DAILY [facility] Last Admin: 08/13/17 09:50 Dose: 40 mg Carvedilol (Coreg) 12.5 mg PO Q12 [facility] Cholecalciferol (Vitamin D) 2,000 intlu PO DAILY [facility] Last Admin: 08/13/17 15:32 Dose: 2,000 intlu Clopidogrel Bisulfate (Plavix) 75 mg PO DAILY [facility] Last Admin: 08/13/17 08:26 Dose: 75 mg Enoxaparin Sodium (Lovenox) 30 mg SC DAILY [facility] PRN Reason: Protocol Last Admin: 08/14/17 10:36 Dose: 30 mg Ferrous Sulfate (Feosol) 325 mg PO TID [facility] Last Admin: 08/13/17 18:03 Dose: 325 mg Furosemide (Lasix) 80 mg PO DAILY [facility] Last Admin: 08/13/17 09:42 Dose: Not Given Furosemide (Lasix) 40 mg IV DAILY [facility] Last Admin: 08/14/17 10:34 Dose: Not Given Sodium Chloride (Sodium Chloride 0.9%) 1,000 mls @ 100 mls/hr IV .Q10H [facility] Last Admin: 08/13/17 23:02 Dose: 100 mls/hr Propofol (Diprivan) 1,000 mg in 100 mls @ 2.085 mls/hr IV .Q24H [facility]; 5 MCG/KG/ MIN PRN Reason: Protocol Stop: 08/14/17 22:11 Last Titration: 08/14/17 10:30 Dose: 10 mcg/kg/min, 4.169 mls/hr Azithromycin 500 mg/ Sodium (Chloride) 250 mls @ 250 mls/hr IVPB DAILY [facility] PRN Reason: Protocol Ceftriaxone Sodium 1 gm/ (Sodium Chloride) 100 mls @ 100 mls/hr IVPB DAILY [facility] PRN Reason: Protocol Insulin Human Lispro (Humalog) 20 units SC BID [facility] Last Admin: 08/13/17 17:30 Dose: Not Given Insulin Human Lispro (Humalog) 0 units SC ACCU-CHECK [facility] PRN Reason: Protocol Last Admin: 08/14/17 06:15 Dose: 2 units Latanoprost (Xalatan Opht) 1 drop OU HS [facility] Last Admin: 08/13/17 23:20 Dose: 1 drop Lisinopril (Zestril) 20 mg PO DAILY [facility] Multivitamins/Minerals (Therapeutic-M Tab) 1 tab PO DAILY [facility] Last Admin: 08/13/17 08:26 Dose: 1 tab Pantoprazole Sodium (Protonix Inj) 40 mg IVP DAILY [facility] Last Admin: 08/14/17 10:36 Dose: 40 mg Fluticasone/Salmeterol (Advair Diskus 250/50) 1 puff IH Q12 [facility] Last Admin: 08/13/17 08:27 Dose: 1 puff Physical Exam - Constitutional Appears: No Acute Distress Additional comments: awake but intubated - Head Exam Head Exam: ATRAUMATIC - Eye Exam Eye Exam: EOMI - ENT Exam Additional comments: ET tube in place - Neck Exam Neck exam: Positive for: Full Rom - Respiratory Exam Additional comments: breath sounds heard b/l slightly decreased at right base - Cardiovascular Exam Cardiovascular Exam: RRR, +S1, +S2 - GI/Abdominal Exam GI & Abdominal Exam: Normal Bowel Sounds, Soft Additional comments: NT, ND - Extremities Exam Extremities exam: Positive for: normal inspection - Neurological Exam Neurological exam: Alert Additional comments: awake and follows most commands right hemiparesis Results - Vital Signs Recent Vital Signs: Last Vital Signs Temp 99.1 F 08/14/17 12:00 Pulse 82 08/14/17 12:00 Resp 15 08/14/17 12:00 BP 185/65 H 08/14/17 12:00 Pulse Ox 100 08/14/17 12:00 - Labs Result Diagrams: 08/14/17 04:55 08/14/17 04:55 Labs: Laboratory Results - last 24 hr 08/13/17 08/13/17 08/13/17 04:20 16:04 20:30 WBC RBC Hgb Hct MCV MCH MCHC RDW Plt Count MPV Neut % (Auto) Lymph % (Auto) [place] % (Auto) Eos % (Auto) Baso % (Auto) Neut # (Auto) Lymph # (Auto) [place] # (Auto) Eos # (Auto) Baso # (Auto) Neutrophils % (Manual) Band Neutrophils % Lymphocytes % (Manual) Reactive Lymphs % Monocytes % (Manual) Platelet Estimate Hypochromasia (manual) Anisocytosis (manual) Helmet Cells pCO2 48 H pO2 403 H HCO3 21.0 ABG pH 7.27 L ABG Total CO2 23.5 ABG O2 Saturation 100.2 H ABG O2 Content 16.6 ABG Base Excess -5.0 L ABG Hemoglobin 11.4 L ABG Carboxyhemoglobin 1.4 POC ABG HHb (Measured) -0.2 L ABG Methemoglobin 1.9 ABG O2 Capacity 16.6 Haseeb Test Yes A-a O2 Difference 250.0 Hgb O2 Saturation 96.9 Vent Mode Mechanical Rate FiO2 100.0 Tidal Volume PEEP Sodium Potassium Chloride Carbon Dioxide Anion Gap BUN Creatinine Est GFR ( Amer) Est GFR (Non-Af Amer) POC Glucose (mg/dL) 193 H Random Glucose Lactic Acid Calcium Total Bilirubin AST ALT Alkaline Phosphatase Troponin I Total Protein Albumin Globulin Albumin/Globulin Ratio Folate > 20.0 08/13/17 08/13/17 08/13/17 21:27 22:21 23:05 WBC RBC Hgb Hct MCV MCH MCHC RDW Plt Count MPV Neut % (Auto) Lymph % (Auto) [place] % (Auto) Eos % (Auto) Baso % (Auto) Neut # (Auto) Lymph # (Auto) [place] # (Auto) Eos # (Auto) Baso # (Auto) Neutrophils % (Manual) Band Neutrophils % Lymphocytes % (Manual) Reactive Lymphs % Monocytes % (Manual) Platelet Estimate Hypochromasia (manual) Anisocytosis (manual) Helmet Cells pCO2 pO2 HCO3 ABG pH ABG Total CO2 ABG O2 Saturation ABG O2 Content ABG Base Excess ABG Hemoglobin ABG Carboxyhemoglobin POC ABG HHb (Measured) ABG Methemoglobin ABG O2 Capacity Haseeb Test A-a O2 Difference Hgb O2 Saturation Vent Mode Mechanical Rate FiO2 Tidal Volume PEEP Sodium Potassium Chloride Carbon Dioxide Anion Gap BUN Creatinine Est GFR ( Amer) Est GFR (Non-Af Amer) POC Glucose (mg/dL) 232 H 226 H Random Glucose Lactic Acid 1.5 Calcium Total Bilirubin AST ALT Alkaline Phosphatase Troponin I Total Protein Albumin Globulin Albumin/Globulin Ratio Folate 08/13/17 08/13/17 08/14/17 23:16 23:16 02:19 WBC 7.8 RBC 3.71 L Hgb 11.7 L Hct 33.6 L MCV 90.7 MCH 31.6 H MCHC 34.8 RDW 14.1 Plt Count 386 MPV 8.8 Neut % (Auto) 74.3 Lymph % (Auto) 15.0 L [place] % (Auto) 6.6 Eos % (Auto) 3.2 Baso % (Auto) 0.9 Neut # (Auto) 5.8 Lymph # (Auto) 1.2 [place] # (Auto) 0.5 Eos # (Auto) 0.3 Baso # (Auto) 0.1 Neutrophils % (Manual) Band Neutrophils % Lymphocytes % (Manual) Reactive Lymphs % Monocytes % (Manual) Platelet Estimate Hypochromasia (manual) Anisocytosis (manual) Helmet Cells pCO2 42 pO2 299 H HCO3 22.1 ABG pH 7.33 L ABG Total CO2 23.4 ABG O2 Saturation 100.4 H ABG O2 Content 15.8 ABG Base Excess -3.7 L ABG Hemoglobin 11.0 L ABG Carboxyhemoglobin 1.5 POC ABG HHb (Measured) -0.4 L ABG Methemoglobin 1.4 ABG O2 Capacity 15.7 L Haseeb Test Yes A-a O2 Difference 219.0 Hgb O2 Saturation 97.5 Vent Mode A/c Mechanical Rate 14 FiO2 80.0 Tidal Volume 500 PEEP 5 Sodium 136 Potassium 4.0 Chloride 105 Carbon Dioxide 21 L Anion Gap 14 BUN 18 Creatinine 1.5 Est GFR ( Amer) 54 Est GFR (Non-Af Amer) 45 POC Glucose (mg/dL) Random Glucose 245 H Lactic Acid Calcium 8.4 Total Bilirubin 0.4 AST 33 ALT 28 Alkaline Phosphatase 109 Troponin I 0.1050 Total Protein 6.3 Albumin 3.3 L Globulin 3.0 Albumin/Globulin Ratio 1.1 Folate 08/14/17 08/14/17 08/14/17 04:55 04:55 05:24 WBC 16.4 H D RBC 3.82 L Hgb 11.8 L Hct 35.1 MCV 91.9 MCH 30.8 MCHC 33.5 RDW 14.2 Plt Count 323 MPV 8.2 Neut % (Auto) 84.0 H Lymph % (Auto) 5.9 L [place] % (Auto) 9.4 Eos % (Auto) 0.3 Baso % (Auto) 0.4 Neut # (Auto) 13.8 H Lymph # (Auto) 1.0 [place] # (Auto) 1.5 H Eos # (Auto) 0.0 Baso # (Auto) 0.1 Neutrophils % (Manual) 84 H Band Neutrophils % 1 Lymphocytes % (Manual) 6 L Reactive Lymphs % 1 H Monocytes % (Manual) 8 Platelet Estimate Normal Hypochromasia (manual) Slight Anisocytosis (manual) Slight Helmet Cells Slight pCO2 40 pO2 338 H HCO3 21.4 ABG pH 7.33 L ABG Total CO2 22.3 ABG O2 Saturation 100.1 H ABG O2 Content 15.9 ABG Base Excess -4.5 L ABG Hemoglobin 11.0 L ABG Carboxyhemoglobin 1.2 POC ABG HHb (Measured) -0.1 L ABG Methemoglobin 1.6 ABG O2 Capacity 15.9 L Haseeb Test Yes A-a O2 Difference 182.0 Hgb O2 Saturation 97.3 Vent Mode A/c Mechanical Rate 14 FiO2 80.0 Tidal Volume 500 PEEP 5 Sodium 138 Potassium 4.1 Chloride 106 Carbon Dioxide 20 L Anion Gap 16 BUN 20 Creatinine 1.7 H Est GFR ( Amer) 47 Est GFR (Non-Af Amer) 39 POC Glucose (mg/dL) Random Glucose 187 H Lactic Acid Calcium 8.7 Total Bilirubin AST ALT Alkaline Phosphatase Troponin I Total Protein Albumin Globulin Albumin/Globulin Ratio [facility] 08/14/17 08/14/17 05:28 11:37 WBC RBC Hgb Hct MCV MCH MCHC RDW Plt Count MPV Neut % (Auto) Lymph % (Auto) [place] % (Auto) Eos % (Auto) Baso % (Auto) Neut # (Auto) Lymph # (Auto) [place] # (Auto) Eos # (Auto) Baso # (Auto) Neutrophils % (Manual) Band Neutrophils % Lymphocytes % (Manual) Reactive Lymphs % Monocytes % (Manual) Platelet Estimate Hypochromasia (manual) Anisocytosis (manual) Helmet Cells pCO2 pO2 HCO3 ABG pH ABG Total CO2 ABG O2 Saturation ABG O2 Content ABG Base Excess ABG Hemoglobin ABG Carboxyhemoglobin POC ABG HHb (Measured) ABG Methemoglobin ABG O2 Capacity Haseeb Test A-a O2 Difference Hgb O2 Saturation Vent Mode Mechanical Rate FiO2 Tidal Volume PEEP Sodium Potassium Chloride Carbon Dioxide Anion Gap BUN Creatinine Est GFR ( Amer) Est GFR (Non-Af Amer) POC Glucose (mg/dL) 171 H 122 H Random Glucose Lactic Acid Calcium Total Bilirubin AST ALT Alkaline Phosphatase Troponin I Total Protein Albumin Globulin Albumin/Globulin Ratio Folate Laboratory Results - last 72 hr 08/12/17 08/12/17 08/12/17 14:35 14:35 14:35 WBC 6.4 RBC 3.45 L Hgb 10.6 L D Hct 31.4 L MCV 91.1 MCH 30.8 MCHC 33.8 RDW 13.9 Plt Count 347 MPV 8.2 Neut % (Auto) 60.8 Lymph % (Auto) 19.3 L [place] % (Auto) 13.3 H Eos % (Auto) 5.9 H Baso % (Auto) 0.7 Neut # (Auto) 3.9 Lymph # (Auto) 1.2 [place] # (Auto) 0.9 H Eos # (Auto) 0.4 Baso # (Auto) 0.0 Neutrophils % (Manual) Band Neutrophils % Lymphocytes % (Manual) Reactive Lymphs % Monocytes % (Manual) Platelet Estimate Hypochromasia (manual) Anisocytosis (manual) Helmet Cells PT INR APTT pCO2 pO2 HCO3 ABG pH ABG Total CO2 ABG O2 Saturation ABG O2 Content ABG Base Excess ABG Hemoglobin ABG Carboxyhemoglobin POC ABG HHb (Measured) ABG Methemoglobin ABG O2 Capacity Haseeb Test A-a O2 Difference Hgb O2 Saturation Vent Mode Mechanical Rate FiO2 Tidal Volume PEEP Sodium 138 Potassium 4.4 Chloride 105 Carbon Dioxide 28 Anion Gap 9 L BUN 26 H Creatinine 1.6 H Est GFR ( Amer) 50 Est GFR (Non-Af Amer) 42 POC Glucose (mg/dL) Random Glucose 136 H Hemoglobin A1c 9.2 H D Lactic Acid Calcium 9.1 Total Bilirubin 0.9 AST 32 ALT 29 Alkaline Phosphatase 83 Troponin I 0.0580 Total Protein 6.5 Albumin 3.2 L Globulin 3.3 Albumin/Globulin Ratio 1.0 Triglycerides 138 D Cholesterol 213 H LDL Cholesterol Direct 131 H HDL Cholesterol 27 L Vitamin B12 25-OH Vitamin D Total Folate Blood Type Antibody Screen BBK History Checked 08/12/17 08/12/17 08/12/17 14:35 14:35 14:36 WBC RBC Hgb Hct MCV MCH MCHC RDW Plt Count MPV Neut % (Auto) Lymph % (Auto) [place] % (Auto) Eos % (Auto) Baso % (Auto) Neut # (Auto) Lymph # (Auto) [place] # (Auto) Eos # (Auto) Baso # (Auto) Neutrophils % (Manual) Band Neutrophils % Lymphocytes % (Manual) Reactive Lymphs % Monocytes % (Manual) Platelet Estimate Hypochromasia (manual) Anisocytosis (manual) Helmet Cells PT 11.8 INR 1.1 APTT 32.3 pCO2 pO2 HCO3 ABG pH ABG Total CO2 ABG O2 Saturation ABG O2 Content ABG Base Excess ABG Hemoglobin ABG Carboxyhemoglobin POC ABG HHb (Measured) ABG Methemoglobin ABG O2 Capacity Haseeb Test A-a O2 Difference Hgb O2 Saturation Vent Mode Mechanical Rate FiO2 Tidal Volume PEEP Sodium Potassium Chloride Carbon Dioxide Anion Gap BUN Creatinine Est GFR ( Amer) Est GFR (Non-Af Amer) POC Glucose (mg/dL) 161 H Random Glucose Hemoglobin A1c Lactic Acid Calcium Total Bilirubin AST ALT Alkaline Phosphatase Troponin I Total Protein Albumin Globulin Albumin/Globulin Ratio Triglycerides Cholesterol LDL Cholesterol Direct HDL Cholesterol Vitamin B12 25-OH Vitamin D Total Folate Blood Type Cancelled Antibody Screen Cancelled BBK History Checked Cancelled 08/12/17 08/12/17 08/12/17 15:04 15:48 22:03 WBC RBC Hgb Hct MCV MCH MCHC RDW Plt Count MPV Neut % (Auto) Lymph % (Auto) [place] % (Auto) Eos % (Auto) Baso % (Auto) Neut # (Auto) Lymph # (Auto) [place] # (Auto) Eos # (Auto) Baso # (Auto) Neutrophils % (Manual) Band Neutrophils % Lymphocytes % (Manual) Reactive Lymphs % Monocytes % (Manual) Platelet Estimate Hypochromasia (manual) Anisocytosis (manual) Helmet Cells PT INR APTT pCO2 pO2 HCO3 ABG pH ABG Total CO2 ABG O2 Saturation ABG O2 Content ABG Base Excess ABG Hemoglobin ABG Carboxyhemoglobin POC ABG HHb (Measured) ABG Methemoglobin ABG O2 Capacity Haseeb Test A-a O2 Difference Hgb O2 Saturation Vent Mode Mechanical Rate FiO2 Tidal Volume PEEP Sodium Potassium Chloride Carbon Dioxide Anion Gap BUN Creatinine Est GFR ( Amer) Est GFR (Non-Af Amer) POC Glucose (mg/dL) 101 140 H Random Glucose Hemoglobin A1c Lactic Acid Calcium Total Bilirubin AST ALT Alkaline Phosphatase Troponin I Total Protein Albumin Globulin Albumin/Globulin Ratio Triglycerides Cholesterol LDL Cholesterol Direct HDL Cholesterol Vitamin B12 25-OH Vitamin D Total Folate Blood Type O POSITIVE Antibody Screen Negative BBK History Checked Patient has bt 08/13/17 08/13/17 08/13/17 04:20 04:20 05:20 WBC RBC Hgb Hct MCV MCH MCHC RDW Plt Count MPV Neut % (Auto) Lymph % (Auto) [place] % (Auto) Eos % (Auto) Baso % (Auto) Neut # (Auto) Lymph # (Auto) [place] # (Auto) Eos # (Auto) Baso # (Auto) Neutrophils % (Manual) Band Neutrophils % Lymphocytes % (Manual) Reactive Lymphs % Monocytes % (Manual) Platelet Estimate Hypochromasia (manual) Anisocytosis (manual) Helmet Cells PT INR APTT pCO2 pO2 HCO3 ABG pH ABG Total CO2 ABG O2 Saturation ABG O2 Content ABG Base Excess ABG Hemoglobin ABG Carboxyhemoglobin POC ABG HHb (Measured) ABG Methemoglobin ABG O2 Capacity Haseeb Test A-a O2 Difference Hgb O2 Saturation Vent Mode Mechanical Rate FiO2 Tidal Volume PEEP Sodium Potassium Chloride Carbon Dioxide Anion Gap BUN Creatinine Est GFR ( Amer) Est GFR (Non-Af Amer) POC Glucose (mg/dL) 130 H Random Glucose Hemoglobin A1c Lactic Acid Calcium Total Bilirubin AST ALT Alkaline Phosphatase Troponin I Total Protein Albumin Globulin Albumin/Globulin Ratio Triglycerides Cholesterol LDL Cholesterol Direct HDL Cholesterol Vitamin B12 427 25-OH Vitamin D Total < 12.8 L Folate > 20.0 Blood Type Antibody Screen BBK History Checked 08/13/17 08/13/17 08/13/17 08:58 08:58 11:03 WBC 7.3 RBC 3.56 L Hgb 11.0 L Hct 32.4 L MCV 90.8 MCH 30.8 MCHC 33.9 RDW 14.4 Plt Count 330 MPV Neut % (Auto) Lymph % (Auto) [place] % (Auto) Eos % (Auto) Baso % (Auto) Neut # (Auto) Lymph # (Auto) [place] # (Auto) Eos # (Auto) Baso # (Auto) Neutrophils % (Manual) Band Neutrophils % Lymphocytes % (Manual) Reactive Lymphs % Monocytes % (Manual) Platelet Estimate Hypochromasia (manual) Anisocytosis (manual) Helmet Cells PT INR APTT pCO2 pO2 HCO3 ABG pH ABG Total CO2 ABG O2 Saturation ABG O2 Content ABG Base Excess ABG Hemoglobin ABG Carboxyhemoglobin POC ABG HHb (Measured) ABG Methemoglobin ABG O2 Capacity Haseeb Test A-a O2 Difference Hgb O2 Saturation Vent Mode Mechanical Rate FiO2 Tidal Volume PEEP Sodium 139 Potassium 4.1 Chloride 105 Carbon Dioxide 25 Anion Gap 13 BUN 20 Creatinine 1.6 H Est GFR ( Amer) 50 Est GFR (Non-Af Amer) 42 POC Glucose (mg/dL) 191 H Random Glucose 167 H Hemoglobin A1c Lactic Acid Calcium 9.0 Total Bilirubin 0.8 AST 23 ALT 32 Alkaline Phosphatase 121 Troponin I Total Protein 6.7 Albumin 3.4 L Globulin 3.3 Albumin/Globulin Ratio 1.0 Triglycerides Cholesterol LDL Cholesterol Direct HDL Cholesterol Vitamin B12 25-OH Vitamin D Total Folate Blood Type Antibody Screen BBK History Checked 08/13/17 08/13/17 08/13/17 16:04 20:30 21:27 WBC RBC Hgb Hct MCV MCH MCHC RDW Plt Count MPV Neut % (Auto) Lymph % (Auto) [place] % (Auto) Eos % (Auto) Baso % (Auto) Neut # (Auto) Lymph # (Auto) [place] # (Auto) Eos # (Auto) Baso # (Auto) Neutrophils % (Manual) Band Neutrophils % Lymphocytes % (Manual) Reactive Lymphs % Monocytes % (Manual) Platelet Estimate Hypochromasia (manual) Anisocytosis (manual) Helmet Cells PT INR APTT pCO2 48 H pO2 403 H HCO3 21.0 ABG pH 7.27 L ABG Total CO2 23.5 ABG O2 Saturation 100.2 H ABG O2 Content 16.6 ABG Base Excess -5.0 L ABG Hemoglobin 11.4 L ABG Carboxyhemoglobin 1.4 POC ABG HHb (Measured) -0.2 L ABG Methemoglobin 1.9 ABG O2 Capacity 16.6 Haseeb Test Yes A-a O2 Difference 250.0 Hgb O2 Saturation 96.9 Vent Mode Mechanical Rate FiO2 100.0 Tidal Volume PEEP Sodium Potassium Chloride Carbon Dioxide Anion Gap BUN Creatinine Est GFR ( Amer) Est GFR (Non-Af Amer) POC Glucose (mg/dL) 193 H 232 H Random Glucose Hemoglobin A1c Lactic Acid Calcium Total Bilirubin AST ALT Alkaline Phosphatase Troponin I Total Protein Albumin Globulin Albumin/Globulin Ratio Triglycerides Cholesterol LDL Cholesterol Direct HDL Cholesterol Vitamin B12 25-OH Vitamin D Total Folate Blood Type Antibody Screen BBK History Checked 08/13/17 08/13/17 08/13/17 22:21 23:05 23:16 WBC 7.8 RBC 3.71 L Hgb 11.7 L Hct 33.6 L MCV 90.7 MCH 31.6 H MCHC 34.8 RDW 14.1 Plt Count 386 MPV 8.8 Neut % (Auto) 74.3 Lymph % (Auto) 15.0 L [place] % (Auto) 6.6 Eos % (Auto) 3.2 Baso % (Auto) 0.9 Neut # (Auto) 5.8 Lymph # (Auto) 1.2 [place] # (Auto) 0.5 Eos # (Auto) 0.3 Baso # (Auto) 0.1 Neutrophils % (Manual) Band Neutrophils % Lymphocytes % (Manual) Reactive Lymphs % Monocytes % (Manual) Platelet Estimate Hypochromasia (manual) Anisocytosis (manual) Helmet Cells PT INR APTT pCO2 pO2 HCO3 ABG pH ABG Total CO2 ABG O2 Saturation ABG O2 Content ABG Base Excess ABG Hemoglobin ABG Carboxyhemoglobin POC ABG HHb (Measured) ABG Methemoglobin ABG O2 Capacity Haseeb Test A-a O2 Difference Hgb O2 Saturation Vent Mode Mechanical Rate FiO2 Tidal Volume PEEP Sodium Potassium Chloride Carbon Dioxide Anion Gap BUN Creatinine Est GFR ( Amer) Est GFR (Non-Af Amer) POC Glucose (mg/dL) 226 H Random Glucose Hemoglobin A1c Lactic Acid 1.5 Calcium Total Bilirubin AST ALT Alkaline Phosphatase Troponin I Total Protein Albumin Globulin Albumin/Globulin Ratio Triglycerides Cholesterol LDL Cholesterol Direct HDL Cholesterol Vitamin B12 25-OH Vitamin D Total Folate Blood Type Antibody Screen BBK History Checked 08/13/17 08/14/17 08/14/17 23:16 02:19 04:55 WBC 16.4 H D RBC 3.82 L Hgb 11.8 L Hct 35.1 MCV 91.9 MCH 30.8 MCHC 33.5 RDW 14.2 Plt Count 323 MPV 8.2 Neut % (Auto) 84.0 H Lymph % (Auto) 5.9 L [place] % (Auto) 9.4 Eos % (Auto) 0.3 Baso % (Auto) 0.4 Neut # (Auto) 13.8 H Lymph # (Auto) 1.0 [place] # (Auto) 1.5 H Eos # (Auto) 0.0 Baso # (Auto) 0.1 Neutrophils % (Manual) 84 H Band Neutrophils % 1 Lymphocytes % (Manual) 6 L Reactive Lymphs % 1 H Monocytes % (Manual) 8 Platelet Estimate Normal Hypochromasia (manual) Slight Anisocytosis (manual) Slight Helmet Cells Slight PT INR APTT pCO2 42 pO2 299 H HCO3 22.1 ABG pH 7.33 L ABG Total CO2 23.4 ABG O2 Saturation 100.4 H ABG O2 Content 15.8 ABG Base Excess -3.7 L ABG Hemoglobin 11.0 L ABG Carboxyhemoglobin 1.5 POC ABG HHb (Measured) -0.4 L ABG Methemoglobin 1.4 ABG O2 Capacity 15.7 L Haseeb Test Yes A-a O2 Difference 219.0 Hgb O2 Saturation 97.5 Vent Mode A/c Mechanical Rate 14 FiO2 80.0 Tidal Volume 500 PEEP 5 Sodium 136 Potassium 4.0 Chloride 105 Carbon Dioxide 21 L Anion Gap 14 BUN 18 Creatinine 1.5 Est GFR ( Amer) 54 Est GFR (Non-Af Amer) 45 POC Glucose (mg/dL) Random Glucose 245 H Hemoglobin A1c Lactic Acid Calcium 8.4 Total Bilirubin 0.4 AST 33 ALT 28 Alkaline Phosphatase 109 Troponin I 0.1050 Total Protein 6.3 Albumin 3.3 L Globulin 3.0 Albumin/Globulin Ratio 1.1 Triglycerides Cholesterol LDL Cholesterol Direct HDL Cholesterol Vitamin B12 25-OH Vitamin D Total Folate Blood Type Antibody Screen BBK History Checked 08/14/17 08/14/17 08/14/17 04:55 05:24 05:28 WBC RBC Hgb Hct MCV MCH MCHC RDW Plt Count MPV Neut % (Auto) Lymph % (Auto) [place] % (Auto) Eos % (Auto) Baso % (Auto) Neut # (Auto) Lymph # (Auto) [place] # (Auto) Eos # (Auto) Baso # (Auto) Neutrophils % (Manual) Band Neutrophils % Lymphocytes % (Manual) Reactive Lymphs % Monocytes % (Manual) Platelet Estimate Hypochromasia (manual) Anisocytosis (manual) Helmet Cells PT INR APTT pCO2 40 pO2 338 H HCO3 21.4 ABG pH 7.33 L ABG Total CO2 22.3 ABG O2 Saturation 100.1 H ABG O2 Content 15.9 ABG Base Excess -4.5 L ABG Hemoglobin 11.0 L ABG Carboxyhemoglobin 1.2 POC ABG HHb (Measured) -0.1 L ABG Methemoglobin 1.6 ABG O2 Capacity 15.9 L Haseeb Test Yes A-a O2 Difference 182.0 Hgb O2 Saturation 97.3 Vent Mode A/c Mechanical Rate 14 FiO2 80.0 Tidal Volume 500 PEEP 5 Sodium 138 Potassium 4.1 Chloride 106 Carbon Dioxide 20 L Anion Gap 16 BUN 20 Creatinine 1.7 H Est GFR ( Amer) 47 Est GFR (Non-Af Amer) 39 POC Glucose (mg/dL) 171 H Random Glucose 187 H Hemoglobin A1c Lactic Acid Calcium 8.7 Total Bilirubin AST ALT Alkaline Phosphatase Troponin I Total Protein Albumin Globulin Albumin/Globulin Ratio Triglycerides Cholesterol LDL Cholesterol Direct HDL Cholesterol Vitamin B12 25-OH Vitamin D Total Folate Blood Type Antibody Screen BBK History Checked 08/14/17 11:37 WBC RBC Hgb Hct MCV MCH MCHC RDW Plt Count MPV Neut % (Auto) Lymph % (Auto) [place] % (Auto) Eos % (Auto) Baso % (Auto) Neut # (Auto) Lymph # (Auto) [place] # (Auto) Eos # (Auto) Baso # (Auto) Neutrophils % (Manual) Band Neutrophils % Lymphocytes % (Manual) Reactive Lymphs % Monocytes % (Manual) Platelet Estimate Hypochromasia (manual) Anisocytosis (manual) Helmet Cells PT INR APTT pCO2 pO2 HCO3 ABG pH ABG Total CO2 ABG O2 Saturation ABG O2 Content ABG Base Excess ABG Hemoglobin ABG Carboxyhemoglobin POC ABG HHb (Measured) ABG Methemoglobin ABG O2 Capacity Haseeb Test A-a O2 Difference Hgb O2 Saturation Vent Mode Mechanical Rate FiO2 Tidal Volume PEEP Sodium Potassium Chloride Carbon Dioxide Anion Gap BUN Creatinine Est GFR ( Amer) Est GFR (Non-Af Amer) POC Glucose (mg/dL) 122 H Random Glucose Hemoglobin A1c Lactic Acid Calcium Total Bilirubin AST ALT Alkaline Phosphatase Troponin I Total Protein Albumin Globulin Albumin/Globulin Ratio Triglycerides Cholesterol LDL Cholesterol Direct HDL Cholesterol Vitamin B12 25-OH Vitamin D Total Folate Blood Type Antibody Screen BBK History Checked Accession No. : [id number] Patient Name / ID : MIKE CASTANEDA / [id number] Exam Date : 08/14/2017 04:34:22 ( Approved ) Study Comment : Sex / Age : M / 82Y Creator : Lalo Phipps MD Dictator : Lalo Phipps MD Porcelain Turner : Drop Worker : Lalo Phipps MD Approver2 : Report Date : 08/14/2017 07:19:01 My Comment : PROCEDURE: CHEST RADIOGRAPH, 1 VIEW HISTORY: intubation COMPARISON: Portable chest 08/13/2017. FINDINGS: Endotracheal and nasogastric tubes are unchanged in position. LUNGS: In infiltrates other developing in the right upper lobe abutting the minor fissure though atelectasis is possible. Borderline patchy infiltrate right lower lobe. Clinically correlate further. Limited left hemidiaphragm elevation is noted. PLEURA: No pneumothorax or pleural fluid seen. CARDIOVASCULAR: Normal. OSSEOUS STRUCTURES: No significant abnormalities. VISUALIZED UPPER ABDOMEN: Normal. OTHER FINDINGS: None. IMPRESSION: Right upper lobe infiltrate persists and may be slightly increased. Borderline patchy density right base. Accession No. : [id number] Patient Name / ID : MIKE CASTANEDA / [id number] Exam Date : 08/14/2017 00:52:56 ( Approved ) Study Comment : Sex / Age : M / 82Y Creator : Lalo Phipps MD Dictator : Lalo Phipps MD Porcelain Turner : Drop Worker : Lalo Phipps MD Approver2 : Report Date : 08/14/2017 10:27:55 My Comment : PROCEDURE: CT HEAD WITHOUT CONTRAST. HISTORY: ams, intubation COMPARISON: None available. TECHNIQUE: Axial computed tomography images were obtained through the head/brain without intravenous contrast. Radiation dose: Total exam DLP = 1002.53 mGy-cm. This CT exam was performed using one or more of the following dose reduction techniques: Automated exposure control, adjustment of the mA and/or kV according to patient size, and/or use of iterative reconstruction technique. FINDINGS: HEMORRHAGE: No intracranial hemorrhage. BRAIN: Age-related diffuse cerebral atrophy chronic microangiopathy are reiterated as well as a chronic infarct in the left occipital lobe. However, there is now all obscuring of the corticomedullary differentiation and local loss of sulcation at a small segment of the posterior left frontal lobe suspicious for a subacute or acute infarct. Follow-up MRI is advised for greater characterization. The remaining lobes of the brain appear otherwise stable including the posterior fossa contents and brainstem. There is no suspicious extra-axial fluid collection or global mass effect appreciable. VENTRICLES: Unremarkable. No hydrocephalus. CALVARIUM: Unremarkable. PARANASAL SINUSES: Trace bilateral sphenoid and ethmoid as well as right maxillary sinus disease appreciable. MASTOID AIR CELLS: Unremarkable as visualized. No inflammatory changes. OTHER FINDINGS: None. IMPRESSION: Findings suspicious for subacute or acute infarct left frontal lobe. Follow-up CT or MRI is recommended. Stable age-related degenerative change are identified throughout the cerebral hemispheres as well as chronic lobar infarction left occipital lobe. Concordant preliminary report from [facility], 08/14/2017. Assessment & Plan (1) Ischemic stroke Status: Acute (2) Respiratory distress Status: Acute (3) COPD (chronic obstructive pulmonary disease) Status: Chronic (4) DM2 (diabetes mellitus, type 2) Status: Acute - Assessment and Plan (Free Text) Assessment: A/P- 82 year old male with PMH of CHF, DM II, HTN admitted with TIA work up and found to have CVA and s/p AIX ARCHITECT for aspiration and hypoxeia and s/p intubation. currently pt. awake and follows most commands. afebrile elevated wbc most likely secondary to aspiration pneumonitis. Plan- check spuutm cx. check blood cx. advise to cover for both anaerobes and Gram neg rods for aspiration pneumonia. Hence advise to start Zosyn (renal dose). advise to d/c ceftriaxone and zithromax. all labs and imaging and medical notes reviewed. case d/w patient's son who is at bedside and with Computer Equipment Repairer . Thank you for allowing me to take part in the care of this patient. ICu time 60 minutes.
[2017-08-14] MEDS: Sodium Chloride 0.9% 1,000 ML IV SCH (13:32)
--- NOTE | 2017-08-14 14:22 | PQF RESP ---
Diagnosis associated with reason for intubation/ vent? 08/13 LIDAR SCIENTIST note: Rapid Response Vital Sign :Blood Pressure 205/92 Pulse Rate 120 Respiratory Rate 34 Oxygen Saturation 80 08/14 Wad Impregnator note: transferred to ICU post intubation after overnight LIDAR SCIENTIST eval for AMS / CVA and hypoxemia. IMPRESSION / MAJOR PROBLEMS NOW: 1. Acute Resp Insuff 2 AMS, Pneumonia 2. CVA ( Left Temp-Occip area) 3. Acclerated HTN 4. Azotemia 2 recent diuretic use 5. Mild DDysfx- No decompensated CHF. 08/14: Resident working with the attending: documentation includes: admitted for acute stroke. Admission complicated by subsequent stroke, hypoxia requiring intubation; --Pneumonia, RUL -Chest x-ray 08/14/17; RUL infiltrate -likely aspiration pneumonia -finding not seen on chest xray 08/12 -WBC elevated today, 16.4 with increase neutrophils -remains afebrile, currently intubated -will start abx; ceftriaxone and azithromycin -ID and pulmonary consulted; follow up recs --Hypoxia -O2 down to low 80's during LIDAR SCIENTIST -intubation, propofol -O2 100% - Ventilate A/C: Rate 14, Peep 5, FiO2 50 Vt 500 -will wean off as tolerated today This form is a permanent part of the medical record Clarification of your documentation is requested to better reflect the severity of illness and intensity of treatment of your patient. Indicators present [] Use of Home Oxygen [] Respiratory rate > 28 or <8/min (Labored respirations) [] PCO2 > 50 mm Hg or (Hypercapnia) (somnolence) [] PaO2 < 60 mm Hg or Hypoxemia (confusion) [] ABG blood gas pH < 7.35 [] SpO2 < 90% sat on Room Air [] Cyanosis [] Unable to Speak in Full Sentences [] Use of Accessory Muscles / Tripoding [] Wheezing [] Other: [] Location in the medical record that reflects the above clinical findings: [] Treatment Provided: [] PHYSICIAN'S RESPONSE Based on your medical judgment of the clinical indicators outlined above, are you treating this patient for a known or suspected: i.e.:[X] Acute Respiratory Failure (hypoxia or hypercapnia) [] Chronic Respiratory Failure (hypoxia or hypercapnia) [] Acute on Chronic Respiratory Failure (hypoxia or hypercapnia) [] Hypoxemia please specify ACUTE, CHRONIC or ACUTE on CHRONIC [] Other []_ [] If unable to determine, please check the box, sign and date. Present On Admission (POA) Indicator: [] Present at the time of admission X[] Not present at the time of admission [] Clinically Undetermined In responding to this query, please exercise your independent professional judgment. The fact that a question is asked does not imply that any particular answer is desired or expected. Thank you for your clarification on this documentation. If you have any questions please call. * Thank you, Olga Wu RN ext. #[phone] MTDD
[2017-08-14] MEDS: Albuterol-Ipratrop 3 mg / 0.5 (3 ml) UD INH SCH ×2 (15:51→19:23)
[2017-08-14] MEDS: Fluticasone-Salmeterol 250-50mcg Diskus IH SCH ×2 (17:51→21:09)
[2017-08-14] MEDS: Latanoprost 0.005% Opht SOUTION OU SCH (21:11)
[2017-08-15] MEDS ORDERED: Midazolam 2 MG/2 ML VIAL IV ONE (01:15)
[2017-08-15] MEDS: Propofol 10 mg/ml 1,000 MG/100 ML VIAL IV SCH (02:22)
[2017-08-15 05:26] LABS: BASO % 0.3 % (0.0-2.0); EOS # 0.1 K/uL (0.0-0.7); EOS % 0.5 % (0.0-4.0); HEMOGLOBIN 8.8 g/dL (12.0-18.0); LYMPH % 8.8 % (20.0-40.0); MEAN CELL VOLUME 90.9 fl (80.0-94.0); MEAN CORPUSCULAR HEMOGLOBIN 30.5 pg (27.0-31.0); MEAN CORPUSCULAR HGB CONC 33.5 g/dL (33.0-37.0); MEAN PLATELET VOLUME 9.1 fl (7.2-11.7); MONO # 1.5 K/uL (0.0-0.8); MONO % 12.7 % (0.0-10.0); NEUT # 8.9 K/uL (1.8-7.0); NEUT % 77.7 % (50.0-75.0); RBC 2.9 Mil/uL (4.40-5.90); RED CELL DISTRIBUTION WIDTH 14.5 % (11.5-14.5); WHITE BLOOD COUNT 11.4 K/uL (4.8-10.8)
[2017-08-15 05:33] LABS: ABG ALLEN TEST YES; ARTERIAL BLOOD GAS HCO3 21.1 mmol/L (21-28); ARTERIAL BLOOD GAS O2 CAPACITY 16.7 mL/dL (16-24); ARTERIAL BLOOD GAS O2 CONTENT 16.7 ML/dL (15-23); ARTERIAL BLOOD GAS PCO2 39 mm/Hg (35-45); ARTERIAL BLOOD GAS PH 7.33 (7.35-7.45); ARTERIAL BLOOD GAS PO2 152 mm/Hg (80-100); ARTERIAL BLOOD GAS TCO2 21.8 mmol/L (22-28)
[2017-08-15 05:57] LABS: ALB/GLOB RATIO 0.9 (1.0-2.1); ALBUMIN 2.7 g/dL (3.5-5.0); CALCIUM 7.7 mg/dL (8.4-10.2)
[2017-08-15] MEDS ORDERED: Propofol 10 mg/ml 1,000 MG/100 ML VIAL IV SCH (06:00)
--- NOTE | 2017-08-15 07:31 | CP.PCM.PN ---
Subjective - Date & Time of Evaluation Date of Evaluation: 08/15/17 Time of Evaluation: 07:31 - Subjective Subjective: Overnight, pt was slowly weaned off of sedation. Was agitated overnight night and given 1x dose of versed. Pt awake and alert this AM, remains lethargic. On CPAP. Pt is able to understand and answers questions by nodding his head. Denies headache, chest pain, blurry vision. Objective - Vital Signs/Intake and Output Vital Signs (last 24 hours): Temp Pulse Resp BP Pulse Ox 99.1 F 74 16 182/61 H 100 08/15/17 04:00 08/15/17 06:00 08/15/17 06:00 08/15/17 06:00 08/15/17 06:00 Intake and Output: 08/15/17 08/15/17 06:59 18:59 Intake Total 70 Output Total 400 Balance -330 - Medications Medications: Current Medications Albuterol Sulfate (Albuterol 0.083% Inhal Bere (2.5 Mg/3 Ml) Ud) 2.5 mg IH Q6 PRN PRN Reason: Shortness of Breath Albuterol/Ipratropium (Duoneb 3 Mg/0.5 Mg (3 Ml) Ud) 3 ml INH RQID [facility] Last Admin: 08/14/17 19:23 Dose: 3 ml Aspirin (Aspirin Chewable) 81 mg PO DAILY [facility] Last Admin: 08/13/17 08:27 Dose: 81 mg Aspirin (Aspirin Supp) 300 mg RC DAILY [facility] Last Admin: 08/14/17 15:45 Dose: 300 mg Atorvastatin Calcium (Lipitor) 40 mg PO DAILY [facility] Last Admin: 08/13/17 09:50 Dose: 40 mg Carvedilol (Coreg) 12.5 mg PO Q12 [facility] Cholecalciferol (Vitamin D) 2,000 intlu PO DAILY [facility] Last Admin: 08/13/17 15:32 Dose: 2,000 intlu Clopidogrel Bisulfate (Plavix) 75 mg PO DAILY [facility] Last Admin: 08/13/17 08:26 Dose: 75 mg Enoxaparin Sodium (Lovenox) 30 mg SC DAILY [facility] PRN Reason: Protocol Last Admin: 08/14/17 10:36 Dose: 30 mg Ferrous Sulfate (Feosol) 325 mg PO TID [facility] Last Admin: 08/13/17 18:03 Dose: 325 mg Furosemide (Lasix) 80 mg PO DAILY [facility] Last Admin: 08/13/17 09:42 Dose: Not Given Furosemide (Lasix) 40 mg IV DAILY [facility] Last Admin: 08/14/17 10:34 Dose: Not Given Sodium Chloride (Sodium Chloride 0.9%) 1,000 mls @ 100 mls/hr IV .Q10H [facility] Last Admin: 08/14/17 13:32 Dose: 100 mls/hr Piperacillin Sod/Tazobactam (Sod 2.25 gm/ Sodium Chloride) 100 mls @ 100 mls/ hr IVPB Q8 [facility] PRN Reason: Protocol Last Admin: 08/15/17 00:51 Dose: 100 mls/hr Propofol (Diprivan) 1,000 mg in 100 mls @ 4.172 mls/hr IV .[id number] [facility]REY; 10 MCG/ KG/MIN PRN Reason: Protocol Stop: 08/16/17 05:56 Insulin Human Lispro (Humalog) 20 units SC BID [facility] Last Admin: 08/13/17 17:30 Dose: Not Given Insulin Human Lispro (Humalog) 0 units SC ACCU-CHECK [facility] PRN Reason: Protocol Last Admin: 08/14/17 22:18 Dose: Not Given Latanoprost (Xalatan Opht) 1 drop OU HS [facility] Last Admin: 08/14/17 21:11 Dose: 1 drop Lisinopril (Zestril) 20 mg PO DAILY [facility] Multivitamins/Minerals (Therapeutic-M Tab) 1 tab PO DAILY [facility] Last Admin: 08/13/17 08:26 Dose: 1 tab Ondansetron HCl (Zofran Inj) 4 mg IVP Q6 PRN PRN Reason: Nausea/Vomiting Last Admin: 08/14/17 13:16 Dose: 4 mg Pantoprazole Sodium (Protonix Inj) 40 mg IVP DAILY [facility] Last Admin: 08/14/17 10:36 Dose: 40 mg Fluticasone/Salmeterol (Advair Diskus 250/50) 1 puff IH Q12 [facility] Last Admin: 08/14/17 21:09 Dose: Not Given - Labs Labs: 08/15/17 04:35 08/15/17 04:35 PT 11.8 Seconds (9.8-13.1) 08/12/17 14:35 INR 1.1 (0.9-1.2) 08/12/17 14:35 APTT 32.3 Seconds (25.6-37.1) 08/12/17 14:35 - Constitutional Appears: No Acute Distress - Head Exam Head Exam: ATRAUMATIC Additional comments: Intubated, on CPAP OG tube noted - Eye Exam Eye Exam: EOMI - ENT Exam ENT Exam: Mucous Membranes Moist - Respiratory Exam Respiratory Exam: NORMAL BREATHING PATTERN (course breath sounds b/l) - Cardiovascular Exam Cardiovascular Exam: REGULAR RHYTHM, +S1, +S2 - GI/Abdominal Exam GI & Abdominal Exam: Soft, Normal Bowel Sounds. absent: Tenderness - Exam Exam: NORMAL INSPECTION (Johnson in place draining yellow/orange ) - Extremities Exam Extremities Exam: Normal Inspection. absent: Calf Tenderness, Pedal Edema - Neurological Exam Neurological Exam: Alert, Awake (lethergic ) - Skin Skin Exam: Dry, Intact, Normal Color Assessment and Plan - Assessment and Plan (Free Text) Assessment: Assessment/Plan: 82 YO male with PMHz of Diastolic HF, COPD, CAD s/p stent x 4, CKD, DM2 on insulin, HTN, HLD, Colon CA s/p surgery (1961), TIA/CVA (1988), left eye blindness/diabetic retinopathy admitted for acute stroke. Admission complicated by subsequent stroke, hypoxia requiring intubation. Acute Stroke, L temporal/occipital junction (08/12) and acute infract L frontal lobe (08/13) -MRI head 08/12; acute stroke in region of the left temporal/occipital junction; no hemorrhage. -CTA head and neck 08/12: Occluded left ICA chronic, Mild proximal b/l vertebral artery atherosclerosis -EKG 08/12: Sinus bradycardia with occasional premature ventricular complexes, Left ventricular hypertrophy with repolarization abnormality -Repeat CT 08/13: acute infract left frontal lobe -Neuro on consult; change aspirin po to DE until ogt/ NGT inserted, permissive HTN until 12 noon today, blood pressure and glycemic control. If the patient further declines with mental status, to repeat CT scan of the head without contrast. -c/w Aspirin and Plavix -will cont PO meds as per ICU team -Neuro on board; cont meds; If the patient further declines with mental status, to repeat CT scan of the head without contrast. -PT/OT evaluation -NPO, IVF Pneumonia, RUL -Chest x-ray 08/14/17; RUL infiltrate -likely aspiration pneumonia -finding not seen on chest xray 08/12 -WBC elevated today, 16.4 with increase neutrophils -remains afebrile, currently intubated -ID and pulmonary consulted; follow up recs -ID on board; Pt started on Zosyn (D2) -follow up pulmonary recs Hypoxia, Intubation -O2 down to low 80's during LIDDING MACHINE OPERATOR -intubation, propofol during LIDDING MACHINE OPERATOR -Laborious respiration while on CPAP this AM and sleepy -ABG this AM: PCO2 normal, PO2 elevated, PH 7.33 -sedation off -d/c intubation later as tolerated Low vitamin D -Vit D level <12.8 -c/w 2000mg vit D daily HTN - Uncontrolled -cont management per ICU team -C/w home meds, Lisinopril 10daily, Carvidilol 12.5 post intubation -Monitor BP closely CAD s/p stent x 4 -EKG: Sinus bradycardia with occasional premature ventricular complexes,Left ventricular hypertrophy with repolarization abnormality -echo normal LV, EF 55-60% -c/w Coreg, Statin, ASA and plavix History of Diastolic HF -Last ECHO from 11/2013 --> Normal LV syst function; Concentric LVH; Impaired Diastolic function -echo normal LV, EF 55-60% -C/w Home meds Lasix 80mg PO daily -Continue Lipitor 40 mg, ASA 81mg -Out patient Cardiology: Dr. Carlos DM2 on insulin -C/w Home insulin -Correction scale -HBA1C 9.2 DVT PPX -Lovenox 40mg daily
[2017-08-15] MEDS: Albuterol-Ipratrop 3 mg / 0.5 (3 ml) UD INH SCH ×4 (07:47→19:05)
--- NOTE | 2017-08-15 08:13 | RAD ---
PROCEDURE: CHEST RADIOGRAPH, 1 VIEW HISTORY: Follow-up. COMPARISON: 08/14/2017 FINDINGS: LUNGS: Interval improvement right upper lobe infiltrate in part related to improved inspiratory effort. Persistent atelectasis both lower lobes. PLEURA: No pneumothorax or pleural fluid seen. CARDIOVASCULAR: Normal. OSSEOUS STRUCTURES: No significant abnormalities. VISUALIZED UPPER ABDOMEN: Normal. OTHER FINDINGS: Stable position of support apparatus including nasogastric tube and endotracheal tube. IMPRESSION: Interval improvement in right upper lobe infiltrate.
--- NOTE | 2017-08-15 08:43 | CP.PCM.PN ---
Subjective - Date & Time of Evaluation Date of Evaluation: 08/15/17 Time of Evaluation: 08:43 - Subjective Subjective: Mr. Fred Banegas was seen and examined at the bedside in ICU. He is on mechanical ventilator on PRVC mode. He opens his eyes spontaneously with both verbal and tactile stimuli, His left eye is dilated and non reactive while right eye is pinpoint sluggish to react. He is able to follow simple commands with right side flaccid.Sedation is off for possible extubation this am. Objective - Vital Signs/Intake and Output Vital Signs (last 24 hours): Temp Pulse Resp BP Pulse Ox 99.0 F 94 H 20 190/84 H 100 08/15/17 08:00 08/15/17 08:00 08/15/17 08:00 08/15/17 08:00 08/15/17 08:00 Intake and Output: 08/15/17 08/15/17 06:59 18:59 Intake Total 70 Output Total 400 Balance -330 - Medications Medications: Current Medications Albuterol Sulfate (Albuterol 0.083% Inhal Bere (2.5 Mg/3 Ml) Ud) 2.5 mg IH Q6 PRN PRN Reason: Shortness of Breath Albuterol/Ipratropium (Duoneb 3 Mg/0.5 Mg (3 Ml) Ud) 3 ml INH RQID [facility] Last Admin: 08/15/17 07:47 Dose: 3 ml Aspirin (Aspirin Chewable) 81 mg PO DAILY [facility] Last Admin: 08/13/17 08:27 Dose: 81 mg Aspirin (Aspirin Supp) 300 mg RC DAILY [facility] Last Admin: 08/14/17 15:45 Dose: 300 mg Atorvastatin Calcium (Lipitor) 40 mg PO DAILY [facility] Last Admin: 08/13/17 09:50 Dose: 40 mg Carvedilol (Coreg) 12.5 mg PO Q12 [facility] Cholecalciferol (Vitamin D) 2,000 intlu PO DAILY [facility] Last Admin: 08/13/17 15:32 Dose: 2,000 intlu Clopidogrel Bisulfate (Plavix) 75 mg PO DAILY [facility] Last Admin: 08/13/17 08:26 Dose: 75 mg Enoxaparin Sodium (Lovenox) 30 mg SC DAILY [facility] PRN Reason: Protocol Last Admin: 08/14/17 10:36 Dose: 30 mg Ferrous Sulfate (Feosol) 325 mg PO TID [facility] Last Admin: 08/13/17 18:03 Dose: 325 mg Furosemide (Lasix) 80 mg PO DAILY [facility] Last Admin: 08/13/17 09:42 Dose: Not Given Furosemide (Lasix) 40 mg IV DAILY [facility] Last Admin: 08/14/17 10:34 Dose: Not Given Sodium Chloride (Sodium Chloride 0.9%) 1,000 mls @ 100 mls/hr IV .Q10H [facility] Last Admin: 08/14/17 13:32 Dose: 100 mls/hr Piperacillin Sod/Tazobactam (Sod 2.25 gm/ Sodium Chloride) 100 mls @ 100 mls/ hr IVPB Q8 [facility] PRN Reason: Protocol Last Admin: 08/15/17 00:51 Dose: 100 mls/hr Propofol (Diprivan) 1,000 mg in 100 mls @ 4.172 mls/hr IV .[id number] [facility]; 10 MCG/ KG/MIN PRN Reason: Protocol Stop: 08/16/17 05:56 Insulin Human Lispro (Humalog) 20 units SC BID [facility] Last Admin: 08/13/17 17:30 Dose: Not Given Insulin Human Lispro (Humalog) 0 units SC ACCU-CHECK [facility] PRN Reason: Protocol Last Admin: 08/14/17 22:18 Dose: Not Given Latanoprost (Xalatan Opht) 1 drop OU HS [facility] Last Admin: 08/14/17 21:11 Dose: 1 drop Lisinopril (Zestril) 20 mg PO DAILY [facility] Multivitamins/Minerals (Therapeutic-M Tab) 1 tab PO DAILY [facility] Last Admin: 08/13/17 08:26 Dose: 1 tab Ondansetron HCl (Zofran Inj) 4 mg IVP Q6 PRN PRN Reason: Nausea/Vomiting Last Admin: 08/14/17 13:16 Dose: 4 mg Pantoprazole Sodium (Protonix Inj) 40 mg IVP DAILY [facility] Last Admin: 08/14/17 10:36 Dose: 40 mg Fluticasone/Salmeterol (Advair Diskus 250/50) 1 puff IH Q12 [facility] Last Admin: 08/14/17 21:09 Dose: Not Given - Labs Labs: 08/15/17 04:35 08/15/17 04:35 PT 11.8 Seconds (9.8-13.1) 08/12/17 14:35 INR 1.1 (0.9-1.2) 08/12/17 14:35 APTT 32.3 Seconds (25.6-37.1) 08/12/17 14:35 - Constitutional Appears: No Acute Distress - Head Exam Head Exam: NORMAL INSPECTION - Eye Exam Pupil Exam: Unequal Additional comments: left eye 5 mm dilated fixed, right eye pinpoint sluggish. Assessment and Plan (1) Ischemic stroke Assessment & Plan: Case discussed with Dr. Thomas, continue all current medical, physical, occupational, and speech therapies. Recommend ventilator management by ICU team , blood pressure and glycemic control. If the patient further declines with mental status, to repeat CT scan of the head without contrast. Status: Acute
[2017-08-15] MEDS: Fluticasone-Salmeterol 250-50mcg Diskus IH SCH ×2 (10:05→21:35)
[2017-08-15] MEDS: Insulin Lispro (humaLOG) 100 Units/ml Inj SC SCH ×4 (10:06→23:00)
--- NOTE | 2017-08-15 10:19 | CP.CCUPN ---
<ArbenAlexis - Last Filed: 08/15/17 11:30> CCU Subjective - Physician Review Subjective (Free Text): 08/15/17 10:43 Patient seen at bedside this morning. He was alert abd responsive, but lethargic. Weaned off vent and on CPAP, RR=high 20s. Patient seemed tired. Afebrile and no other acute events overnight. Good urine output. IV fluids stopped yesterday. Not under sedation anymore. CCU Objective - Vital Signs / Intake & Output Vital Signs (Last 4 hours): Vital Signs Temp Pulse Resp BP Pulse Ox 08/15/17 10:00 89 12 183/75 H 100 08/15/17 09:00 89 12 199/80 H 100 08/15/17 08:00 99.0 F 94 H 20 190/84 H 100 08/15/17 07:00 74 12 186/87 H 100 Intake and Output (Last 8hrs): Intake & Output 08/14/17 08/15/17 08/15/17 22:59 06:59 14:59 Intake Total 100 70 Output Total 200 400 Balance -100 -330 Intake: IV 70 Intake, Piggyback 100 Output: Urine 200 400 2-way Urethral 200 400 Other: # Bowel Movements 0 0 - Physical Exam Physical Exam Limitations: Positive for: Altered Mental Status Head: Positive for: Atraumatic Mouth: Positive for: Moist Mucous Membranes. Negative for: Drooling Nose (External): Positive for: Atraumatic Neck: Negative for: JVD, Lymphadenopathy Respiratory/Chest: Positive for: Clear to Auscultation, Respiratory Distress ( Mild). Negative for: Wheezes, Retracting, Rhonchi Cardiovascular: Positive for: Regular Rate and Rhythm, Normal S1, S2. Negative for: Tachycardic, Bradycardic, Gallop Abdomen: Positive for: Normal Bowel Sounds. Negative for: Distention, Peritoneal Signs Upper Extremity: Positive for: Capillary Refill < 2s. Negative for: Cyanosis, Edema, Swelling, Erythema, Temperature Abnormalties Lower Extremity: Positive for: NORMAL PULSES, Capillary Refill < 2 s, Other ( Chronic dermatitis color changes). Negative for: Edema, Swelling, Erythema, Temperature Abnormalties Skin: Positive for: Warm. Negative for: Erythematous, Hot, Cold, Pale Psychiatric: Positive for: Alert, Lethargic. Negative for: Oriented x 3 ( Arousable to verbal stimuli. Lethargic) - Medications Active Medications: Active Medications Generic Name Dose Route Start Last Admin Trade Name Freq PRN Reason Stop Dose Admin Albuterol Sulfate 2.5 mg 08/12/17 17:20 Albuterol 0.083% Inhal Bere (2.5 Mg/3 Ml) Ud IH Q6 PRN Shortness of Breath Albuterol/Ipratropium 3 ml 08/14/17 16:00 08/15/17 07:47 Duoneb 3 Mg/0.5 Mg (3 Ml) Ud INH 3 ml RQID TREY Administration Aspirin 81 mg 08/13/17 09:00 08/13/17 08:27 Aspirin Chewable PO 81 mg DAILY TREY Administration Aspirin 300 mg 08/14/17 09:45 08/14/17 15:45 Aspirin Supp RC 300 mg DAILY TREY Administration Atorvastatin Calcium 40 mg 08/13/17 09:00 08/13/17 09:50 Lipitor PO 40 mg DAILY TREY Administration Carvedilol 12.5 mg 08/13/17 15:40 Coreg PO Q12 TREY Cholecalciferol 2,000 intlu 08/13/17 13:30 08/13/17 15:32 Vitamin D PO 2,000 intlu DAILY TREY Administration Clopidogrel Bisulfate 75 mg 08/13/17 09:00 08/13/17 08:26 Plavix PO 75 mg DAILY TREY Administration Enoxaparin Sodium 30 mg 08/14/17 09:00 08/14/17 10:36 Lovenox SC 30 mg DAILY TREY Administration Protocol Ferrous Sulfate 325 mg 08/13/17 09:00 08/13/17 18:03 Feosol PO 325 mg TID TREY Administration Furosemide 80 mg 08/13/17 09:00 08/13/17 09:42 Lasix PO Not Given DAILY [facility] Furosemide 40 mg 08/14/17 09:00 08/14/17 10:34 Lasix IV Not Given DAILY [facility] Sodium Chloride 1,000 mls @ 100 mls/hr 08/12/17 14:45 08/14/17 13:32 Sodium Chloride 0.9% IV 100 mls/hr .Q10H TREY Administration Piperacillin Sod/Tazobactam 100 mls @ 100 mls/hr 08/14/17 17:00 08/15/17 00: 51 Sod 2.25 gm/ Sodium Chloride IVPB 100 mls/hr Q8 TREY Administration Protocol Propofol 1,000 mg in 100 mls @ 4.172 mls/hr 08/15/17 06:00 Diprivan IV 08/16/17 05:56 .[id number] TREY Protocol 10 MCG/KG/MIN Insulin Human Lispro 20 units 08/13/17 09:00 08/13/17 17:30 Humalog SC Not Given BID TREY Insulin Human Lispro 0 units 08/13/17 19:12 08/14/17 22:18 Humalog SC Not Given ACCU-CHECK [facility] Protocol Latanoprost 1 drop 08/12/17 22:00 08/14/17 21:11 Xalatan Opht OU 1 drop HS TREY Administration Lisinopril 20 mg 08/13/17 15:40 Zestril PO DAILY [facility] Multivitamins/Minerals 1 tab 08/13/17 09:00 08/13/17 08:26 Therapeutic-M Tab PO 1 tab DAILY TREY Administration Ondansetron HCl 4 mg 08/14/17 12:44 08/14/17 13:16 Zofran Inj IVP 4 mg Q6 PRN Administration Nausea/Vomiting Pantoprazole Sodium 40 mg 08/14/17 09:00 08/14/17 10:36 Protonix Inj IVP 40 mg DAILY TREY Administration Fluticasone/Salmeterol 1 puff 08/12/17 21:00 08/14/17 21:09 Advair Diskus 250/50 IH Not Given Q12 TREY - Patient Studies Lab Studies: Lab Studies 08/15/17 08/15/17 08/15/17 Range/Units 06:22 05:17 04:35 WBC (4.8-10.8) K/uL RBC (4.40-5.90) Mil/uL Hgb (12.0-18.0) g/dL Hct (35.0-51.0) % MCV (80.0-94.0) fl MCH (27.0-31.0) pg MCHC (33.0-37.0) g/dL RDW (11.5-14.5) % Plt Count (130-400) K/uL MPV (7.2-11.7) fl Neut % (Auto) (50.0-75.0) % Lymph % (Auto) (20.0-40.0) % Mclennan % (Auto) (0.0-10.0) % Eos % (Auto) (0.0-4.0) % Baso % (Auto) (0.0-2.0) % Neut # (Auto) (1.8-7.0) K/uL Lymph # (Auto) (1.0-4.3) K/uL Mclennan # (Auto) (0.0-0.8) K/uL Eos # (Auto) (0.0-0.7) K/uL Baso # (Auto) (0.0-0.2) K/uL pCO2 39 (35-45) mm/Hg pO2 152 H (80-100) mm/Hg HCO3 21.1 (21-28) mmol/L ABG pH 7.33 L (7.35-7.45) ABG Total CO2 21.8 L (22-28) mmol/L ABG O2 Saturation 100.0 H (95-98) % ABG O2 Content 16.7 (15-23) ML/dL ABG Base Excess -4.9 L (-2.0-3.0) mmol/L ABG Hemoglobin 12.0 (11.7-17.4) g/dL ABG Carboxyhemoglobin 1.5 (0.5-1.5) % POC ABG HHb (Measured) 0.0 (0.0-5.0) % ABG Methemoglobin 1.4 (0.0-3.0) % ABG O2 Capacity 16.7 (16-24) mL/dL Haseeb Test Yes A-a O2 Difference 84.0 mm/Hg Hgb O2 Saturation 97.0 (95.0-98.0) % Mechanical Rate 8 FiO2 40.0 % Tidal Volume 450 PEEP 5 Sodium 140 (132-148) mmol/l Potassium 3.7 (3.6-5.0) MMOL/L Chloride 110 H (98-107) mmol/L Carbon Dioxide 21 L (22-30) mmol/L Anion Gap 13 (10-20) BUN 17 (9-20) mg/dl Creatinine 1.8 H (0.8-1.5) mg/dl Est GFR ( Amer) 44 Est GFR (Non-Af Amer) 36 POC Glucose (mg/dL) 124 H (65-110) mg/dL Random Glucose 127 H (75-110) mg/dL Calcium 7.7 L (8.4-10.2) mg/dL Total Bilirubin 0.7 (0.2-1.3) mg/dl AST 24 (17-59) U/L ALT 24 (21-72) U/L Alkaline Phosphatase 88 (38-126) U/L Total Protein 5.6 L (6.3-8.2) G/DL Albumin 2.7 L (3.5-5.0) g/dL Globulin 2.9 (2.2-3.9) gm/dL Albumin/Globulin Ratio 0.9 L (1.0-2.1) 08/15/17 08/14/17 08/14/17 Range/Units 04:35 20:50 16:59 WBC 11.4 H (4.8-10.8) K/uL RBC 2.90 L (4.40-5.90) Mil/uL Hgb 8.8 L D (12.0-18.0) g/dL Hct 26.4 L (35.0-51.0) % MCV 90.9 (80.0-94.0) fl MCH 30.5 (27.0-31.0) pg MCHC 33.5 (33.0-37.0) g/dL RDW 14.5 (11.5-14.5) % Plt Count 281 (130-400) K/uL MPV 9.1 (7.2-11.7) fl Neut % (Auto) 77.7 H (50.0-75.0) % Lymph % (Auto) 8.8 L (20.0-40.0) % Mclennan % (Auto) 12.7 H (0.0-10.0) % Eos % (Auto) 0.5 (0.0-4.0) % Baso % (Auto) 0.3 (0.0-2.0) % Neut # (Auto) 8.9 H (1.8-7.0) K/uL Lymph # (Auto) 1.0 (1.0-4.3) K/uL Mclennan # (Auto) 1.5 H (0.0-0.8) K/uL Eos # (Auto) 0.1 (0.0-0.7) K/uL Baso # (Auto) 0.0 (0.0-0.2) K/uL pCO2 (35-45) mm/Hg pO2 (80-100) mm/Hg HCO3 (21-28) mmol/L ABG pH (7.35-7.45) ABG Total CO2 (22-28) mmol/L ABG O2 Saturation (95-98) % ABG O2 Content (15-23) ML/dL ABG Base Excess (-2.0-3.0) mmol/L ABG Hemoglobin (11.7-17.4) g/dL ABG Carboxyhemoglobin (0.5-1.5) % POC ABG HHb (Measured) (0.0-5.0) % ABG Methemoglobin (0.0-3.0) % ABG O2 Capacity (16-24) mL/dL Haseeb Test A-a O2 Difference mm/Hg Hgb O2 Saturation (95.0-98.0) % Mechanical Rate FiO2 % Tidal Volume PEEP Sodium (132-148) mmol/l Potassium (3.6-5.0) MMOL/L Chloride (98-107) mmol/L Carbon Dioxide (22-30) mmol/L Anion Gap (10-20) BUN (9-20) mg/dl Creatinine (0.8-1.5) mg/dl Est GFR ( Amer) Est GFR (Non-Af Amer) POC Glucose (mg/dL) 124 H 127 H (65-110) mg/dL Random Glucose (75-110) mg/dL Calcium (8.4-10.2) mg/dL Total Bilirubin (0.2-1.3) mg/dl AST (17-59) U/L ALT (21-72) U/L Alkaline Phosphatase (38-126) U/L Total Protein (6.3-8.2) G/DL Albumin (3.5-5.0) g/dL Globulin (2.2-3.9) gm/dL Albumin/Globulin Ratio (1.0-2.1) 08/14/17 Range/Units 11:37 WBC (4.8-10.8) K/uL RBC (4.40-5.90) Mil/uL Hgb (12.0-18.0) g/dL Hct (35.0-51.0) % MCV (80.0-94.0) fl MCH (27.0-31.0) pg MCHC (33.0-37.0) g/dL RDW (11.5-14.5) % Plt Count (130-400) K/uL MPV (7.2-11.7) fl Neut % (Auto) (50.0-75.0) % Lymph % (Auto) (20.0-40.0) % Mclennan % (Auto) (0.0-10.0) % Eos % (Auto) (0.0-4.0) % Baso % (Auto) (0.0-2.0) % Neut # (Auto) (1.8-7.0) K/uL Lymph # (Auto) (1.0-4.3) K/uL Mclennan # (Auto) (0.0-0.8) K/uL Eos # (Auto) (0.0-0.7) K/uL Baso # (Auto) (0.0-0.2) K/uL pCO2 (35-45) mm/Hg pO2 (80-100) mm/Hg HCO3 (21-28) mmol/L ABG pH (7.35-7.45) ABG Total CO2 (22-28) mmol/L ABG O2 Saturation (95-98) % ABG O2 Content (15-23) ML/dL ABG Base Excess (-2.0-3.0) mmol/L ABG Hemoglobin (11.7-17.4) g/dL ABG Carboxyhemoglobin (0.5-1.5) % POC ABG HHb (Measured) (0.0-5.0) % ABG Methemoglobin (0.0-3.0) % ABG O2 Capacity (16-24) mL/dL Haseeb Test A-a O2 Difference mm/Hg Hgb O2 Saturation (95.0-98.0) % Mechanical Rate FiO2 % Tidal Volume PEEP Sodium (132-148) mmol/l Potassium (3.6-5.0) MMOL/L Chloride (98-107) mmol/L Carbon Dioxide (22-30) mmol/L Anion Gap (10-20) BUN (9-20) mg/dl Creatinine (0.8-1.5) mg/dl Est GFR ( Amer) Est GFR (Non-Af Amer) POC Glucose (mg/dL) 122 H (65-110) mg/dL Random Glucose (75-110) mg/dL Calcium (8.4-10.2) mg/dL Total Bilirubin (0.2-1.3) mg/dl AST (17-59) U/L ALT (21-72) U/L Alkaline Phosphatase (38-126) U/L Total Protein (6.3-8.2) G/DL Albumin (3.5-5.0) g/dL Globulin (2.2-3.9) gm/dL Albumin/Globulin Ratio (1.0-2.1) Laboratory Results - last 24 hr 08/14/17 08/14/17 08/14/17 11:37 16:59 20:50 WBC RBC Hgb Hct MCV MCH MCHC RDW Plt Count MPV Neut % (Auto) Lymph % (Auto) Mclennan % (Auto) Eos % (Auto) Baso % (Auto) Neut # (Auto) Lymph # (Auto) Mclennan # (Auto) Eos # (Auto) Baso # (Auto) pCO2 pO2 HCO3 ABG pH ABG Total CO2 ABG O2 Saturation ABG O2 Content ABG Base Excess ABG Hemoglobin ABG Carboxyhemoglobin POC ABG HHb (Measured) ABG Methemoglobin ABG O2 Capacity Haseeb Test A-a O2 Difference Hgb O2 Saturation Mechanical Rate FiO2 Tidal Volume PEEP Sodium Potassium Chloride Carbon Dioxide Anion Gap BUN Creatinine Est GFR ( Amer) Est GFR (Non-Af Amer) POC Glucose (mg/dL) 122 H 127 H 124 H Random Glucose Calcium Total Bilirubin AST ALT Alkaline Phosphatase Total Protein Albumin Globulin Albumin/Globulin Ratio 08/15/17 08/15/17 08/15/17 04:35 04:35 05:17 WBC 11.4 H RBC 2.90 L Hgb 8.8 L D Hct 26.4 L MCV 90.9 MCH 30.5 MCHC 33.5 RDW 14.5 Plt Count 281 MPV 9.1 Neut % (Auto) 77.7 H Lymph % (Auto) 8.8 L Mclennan % (Auto) 12.7 H Eos % (Auto) 0.5 Baso % (Auto) 0.3 Neut # (Auto) 8.9 H Lymph # (Auto) 1.0 Mclennan # (Auto) 1.5 H Eos # (Auto) 0.1 Baso # (Auto) 0.0 pCO2 39 pO2 152 H HCO3 21.1 ABG pH 7.33 L ABG Total CO2 21.8 L ABG O2 Saturation 100.0 H ABG O2 Content 16.7 ABG Base Excess -4.9 L ABG Hemoglobin 12.0 ABG Carboxyhemoglobin 1.5 POC ABG HHb (Measured) 0.0 ABG Methemoglobin 1.4 ABG O2 Capacity 16.7 Haseeb Test Yes A-a O2 Difference 84.0 Hgb O2 Saturation 97.0 Mechanical Rate 8 FiO2 40.0 Tidal Volume 450 PEEP 5 Sodium 140 Potassium 3.7 Chloride 110 H Carbon Dioxide 21 L Anion Gap 13 BUN 17 Creatinine 1.8 H Est GFR ( Amer) 44 Est GFR (Non-Af Amer) 36 POC Glucose (mg/dL) Random Glucose 127 H Calcium 7.7 L Total Bilirubin 0.7 AST 24 ALT 24 Alkaline Phosphatase 88 Total Protein 5.6 L Albumin 2.7 L Globulin 2.9 Albumin/Globulin Ratio 0.9 L 08/15/17 06:22 WBC RBC Hgb Hct MCV MCH MCHC RDW Plt Count MPV Neut % (Auto) Lymph % (Auto) Mclennan % (Auto) Eos % (Auto) Baso % (Auto) Neut # (Auto) Lymph # (Auto) Mclennan # (Auto) Eos # (Auto) Baso # (Auto) pCO2 pO2 HCO3 ABG pH ABG Total CO2 ABG O2 Saturation ABG O2 Content ABG Base Excess ABG Hemoglobin ABG Carboxyhemoglobin POC ABG HHb (Measured) ABG Methemoglobin ABG O2 Capacity Haseeb Test A-a O2 Difference Hgb O2 Saturation Mechanical Rate FiO2 Tidal Volume PEEP Sodium Potassium Chloride Carbon Dioxide Anion Gap BUN Creatinine Est GFR ( Amer) Est GFR (Non-Af Amer) POC Glucose (mg/dL) 124 H Random Glucose Calcium Total Bilirubin AST ALT Alkaline Phosphatase Total Protein Albumin Globulin Albumin/Globulin Ratio Fingerstick Blood Sugar Results: 124 Review of Systems - Review of Systems Systems not reviewed;Unavailable: Acuity of Condition - Constitutional Constitutional: absent: Fever, Sweats Critical Care Progress Note - Ventilator Checklist Head of Bed 30 Degrees: Yes Daily Sedation Vacation: Yes (sedation stopped) Daily Assessment of Readiness to Wean: Yes (Weaned off vent yesterday) PUD Prophalyxis: Yes DVT Prophylaxis: Yes - Vent Settings MODE:: CPAP - Extremities/Vascular Does the Patient have a Central Venous Catheter?: No Does the Patient have a Johnson Catheter?: Yes Does the Patient need a Johnson Catheter?: Yes Catheter Insertion Criteria: Patient has acute urinary retention or bladder outlet obstruction - Prophylaxis GI Prophylaxis GI: PPI - Prophylaxis DVT Prophylaxis DVT: Lovenox - Nutrition Nutrition: Nutrition Category Date Time Status NPO Diet [DIET] Diets 08/13/17 Dinner Active Assessment/Plan - Assessment and Plan (Free Text) Assessment: 82 y/o M admitted for CVA and pneumonia CVA Acute vs subacute Frontal ischemic stroke as per last Ct Head 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 Recs appreciated Patient placed back on vent this AM HTN Chronic SBP increasing. 219/87 with [id number] Labetalol 20 mg IV PRN started if MAP >120 c/w rest of meds DVTprophylaxis Lovenox SQ <Nish Shrestha - Last Filed: 08/15/17 15:37> CCU Subjective - Physician Review Subjective (Free Text): Attestation: Patient seen and examined at the bedside with Resident Dr. Freddie Theodore; and I agree with his outline of plans and management documented below as discussed on AM rounds reflecting my review of all applicable clinical data, and participation in the care of the patient throughout the day in ICU; today, August 15, 2017.
[2017-08-15] MEDS: Enoxaparin 30 mg Syringe SC SCH (10:22)
[2017-08-15 10:58] LABS: HEMOGLOBIN 9.6 g/dL (12.0-18.0); MEAN CELL VOLUME 90.8 fl (80.0-94.0); MEAN CORPUSCULAR HEMOGLOBIN 30.1 pg (27.0-31.0); MEAN CORPUSCULAR HGB CONC 33.2 g/dL (33.0-37.0); RBC 3.19 Mil/uL (4.40-5.90); RED CELL DISTRIBUTION WIDTH 14.4 % (11.5-14.5); WHITE BLOOD COUNT 12.1 K/uL (4.8-10.8)
[2017-08-15] MEDS: Labetalol 5 mg/ml Inj 20ML IVP PRN ×2 (11:46→17:12)
--- NOTE | 2017-08-15 13:56 | CP.PCM.PN ---
Subjective - Date & Time of Evaluation Date of Evaluation: 08/15/17 Time of Evaluation: 13:52 - Subjective Subjective: ID Note- Pt. seen and examined today in ICU. patient s/p extubation today and is on oxygen via FM . he is awake and alert and in good spirits. His family is at his bedside. He denies any fever or chills, denies any sob or cough now. Objective - Vital Signs/Intake and Output Vital Signs (last 24 hours): Temp Pulse Resp BP Pulse Ox 98.9 F 79 24 196/77 H 100 08/15/17 12:00 08/15/17 13:00 08/15/17 13:00 08/15/17 13:00 08/15/17 13:00 Intake and Output: 08/15/17 08/15/17 06:59 18:59 Intake Total 70 135 Output Total 400 200 Balance -330 -65 - Medications Medications: Current Medications Albuterol Sulfate (Albuterol 0.083% Inhal Bere (2.5 Mg/3 Ml) Ud) 2.5 mg IH Q6 PRN PRN Reason: Shortness of Breath Albuterol/Ipratropium (Duoneb 3 Mg/0.5 Mg (3 Ml) Ud) 3 ml INH RQID [facility] Last Admin: 08/15/17 11:35 Dose: 3 ml Aspirin (Aspirin Chewable) 81 mg PO DAILY [facility] Last Admin: 08/13/17 08:27 Dose: 81 mg Aspirin (Aspirin Supp) 300 mg RC DAILY [facility] Last Admin: 08/15/17 10:43 Dose: 300 mg Atorvastatin Calcium (Lipitor) 40 mg PO DAILY [facility] Last Admin: 08/13/17 09:50 Dose: 40 mg Carvedilol (Coreg) 12.5 mg PO Q12 [facility] Cholecalciferol (Vitamin D) 2,000 intlu PO DAILY [facility] Last Admin: 08/13/17 15:32 Dose: 2,000 intlu Clopidogrel Bisulfate (Plavix) 75 mg PO DAILY [facility] Last Admin: 08/13/17 08:26 Dose: 75 mg Enoxaparin Sodium (Lovenox) 30 mg SC DAILY [facility] PRN Reason: Protocol Last Admin: 08/15/17 10:22 Dose: 30 mg Ferrous Sulfate (Feosol) 325 mg PO TID [facility] Last Admin: 08/13/17 18:03 Dose: 325 mg Furosemide (Lasix) 80 mg PO DAILY [facility] Last Admin: 08/13/17 09:42 Dose: Not Given Furosemide (Lasix) 40 mg IV DAILY [facility] Last Admin: 08/14/17 10:34 Dose: Not Given Sodium Chloride (Sodium Chloride 0.9%) 1,000 mls @ 100 mls/hr IV .Q10H [facility] Last Admin: 08/14/17 13:32 Dose: 100 mls/hr Piperacillin Sod/Tazobactam (Sod 2.25 gm/ Sodium Chloride) 100 mls @ 100 mls/ hr IVPB Q8 [facility] PRN Reason: Protocol Last Admin: 08/15/17 10:23 Dose: 100 mls/hr Propofol (Diprivan) 1,000 mg in 100 mls @ 4.172 mls/hr IV .[id number] [facility]; 10 MCG/ KG/MIN PRN Reason: Protocol Stop: 08/16/17 05:56 Insulin Human Lispro (Humalog) 20 units SC BID [facility] Last Admin: 08/13/17 17:30 Dose: Not Given Insulin Human Lispro (Humalog) 0 units SC ACCU-CHECK [facility] PRN Reason: Protocol Last Admin: 08/15/17 13:34 Dose: Not Given Labetalol HCl (Trandate) 20 mg IVP Q4H PRN PRN Reason: MAP>120 Last Admin: 08/15/17 11:46 Dose: 20 mg Latanoprost (Xalatan Opht) 1 drop OU HS [facility] Last Admin: 08/14/17 21:11 Dose: 1 drop Lisinopril (Zestril) 20 mg PO DAILY [facility] Multivitamins/Minerals (Therapeutic-M Tab) 1 tab PO DAILY [facility] Last Admin: 08/13/17 08:26 Dose: 1 tab Ondansetron HCl (Zofran Inj) 4 mg IVP Q6 PRN PRN Reason: Nausea/Vomiting Last Admin: 08/14/17 13:16 Dose: 4 mg Pantoprazole Sodium (Protonix Inj) 40 mg IVP DAILY [facility] Last Admin: 08/15/17 10:22 Dose: 40 mg Fluticasone/Salmeterol (Advair Diskus 250/50) 1 puff IH Q12 [facility] Last Admin: 08/15/17 10:05 Dose: Not Given - Labs Labs: - Additional Findings Additional findings: - Constitutional Appears: No Acute Distress Additional comments: awake and alert - Head Exam Head Exam: ATRAUMATIC - Eye Exam Eye Exam: EOMI - Neck Exam Neck exam: Positive for: Full Rom - Respiratory Exam Additional comments: breath sounds heard b/l slightly decreased at right base - Cardiovascular Exam Cardiovascular Exam: RRR, +S1, +S2 - GI/Abdominal Exam GI & Abdominal Exam: Normal Bowel Sounds, Soft Additional comments: NT, ND - Extremities Exam Extremities exam: Positive for: normal inspection - Neurological Exam Neurological exam: Alert Additional comments: awake and follows commands right hemiparesis Laboratory Results - last 72 hr 08/12/17 08/12/17 08/12/17 14:35 14:35 14:35 WBC 6.4 RBC 3.45 L Hgb 10.6 L D Hct 31.4 L MCV 91.1 MCH 30.8 MCHC 33.8 RDW 13.9 Plt Count 347 MPV 8.2 Neut % (Auto) 60.8 Lymph % (Auto) 19.3 L [place] % (Auto) 13.3 H Eos % (Auto) 5.9 H Baso % (Auto) 0.7 Neut # (Auto) 3.9 Lymph # (Auto) 1.2 [place] # (Auto) 0.9 H Eos # (Auto) 0.4 Baso # (Auto) 0.0 Neutrophils % (Manual) Band Neutrophils % Lymphocytes % (Manual) Reactive Lymphs % Monocytes % (Manual) Platelet Estimate Hypochromasia (manual) Anisocytosis (manual) Helmet Cells PT INR APTT pCO2 pO2 HCO3 ABG pH ABG Total CO2 ABG O2 Saturation ABG O2 Content ABG Base Excess ABG Hemoglobin ABG Carboxyhemoglobin POC ABG HHb (Measured) ABG Methemoglobin ABG O2 Capacity Haseeb Test A-a O2 Difference Hgb O2 Saturation Vent Mode Mechanical Rate FiO2 Tidal Volume PEEP Sodium 138 Potassium 4.4 Chloride 105 Carbon Dioxide 28 Anion Gap 9 L BUN 26 H Creatinine 1.6 H Est GFR ( Amer) 50 Est GFR (Non-Af Amer) 42 POC Glucose (mg/dL) Random Glucose 136 H Hemoglobin A1c 9.2 H D Lactic Acid Calcium 9.1 Total Bilirubin 0.9 AST 32 ALT 29 Alkaline Phosphatase 83 Troponin I 0.0580 Total Protein 6.5 Albumin 3.2 L Globulin 3.3 Albumin/Globulin Ratio 1.0 Triglycerides 138 D Cholesterol 213 H LDL Cholesterol Direct 131 H HDL Cholesterol 27 L Vitamin B12 25-OH Vitamin D Total Folate Blood Type Antibody Screen BBK History Checked 08/12/17 08/12/17 08/12/17 14:35 14:35 14:36 WBC RBC Hgb Hct MCV MCH MCHC RDW Plt Count MPV Neut % (Auto) Lymph % (Auto) [place] % (Auto) Eos % (Auto) Baso % (Auto) Neut # (Auto) Lymph # (Auto) [place] # (Auto) Eos # (Auto) Baso # (Auto) Neutrophils % (Manual) Band Neutrophils % Lymphocytes % (Manual) Reactive Lymphs % Monocytes % (Manual) Platelet Estimate Hypochromasia (manual) Anisocytosis (manual) Helmet Cells PT 11.8 INR 1.1 APTT 32.3 pCO2 pO2 HCO3 ABG pH ABG Total CO2 ABG O2 Saturation ABG O2 Content ABG Base Excess ABG Hemoglobin ABG Carboxyhemoglobin POC ABG HHb (Measured) ABG Methemoglobin ABG O2 Capacity Haseeb Test A-a O2 Difference Hgb O2 Saturation Vent Mode Mechanical Rate FiO2 Tidal Volume PEEP Sodium Potassium Chloride Carbon Dioxide Anion Gap BUN Creatinine Est GFR ( Amer) Est GFR (Non-Af Amer) POC Glucose (mg/dL) 161 H Random Glucose Hemoglobin A1c Lactic Acid Calcium Total Bilirubin AST ALT Alkaline Phosphatase Troponin I Total Protein Albumin Globulin Albumin/Globulin Ratio Triglycerides Cholesterol LDL Cholesterol Direct HDL Cholesterol Vitamin B12 25-OH Vitamin D Total Folate Blood Type Cancelled Antibody Screen Cancelled BBK History Checked Cancelled 08/12/17 08/12/17 08/12/17 15:04 15:48 22:03 WBC RBC Hgb Hct MCV MCH MCHC RDW Plt Count MPV Neut % (Auto) Lymph % (Auto) [place] % (Auto) Eos % (Auto) Baso % (Auto) Neut # (Auto) Lymph # (Auto) [place] # (Auto) Eos # (Auto) Baso # (Auto) Neutrophils % (Manual) Band Neutrophils % Lymphocytes % (Manual) Reactive Lymphs % Monocytes % (Manual) Platelet Estimate Hypochromasia (manual) Anisocytosis (manual) Helmet Cells PT INR APTT pCO2 pO2 HCO3 ABG pH ABG Total CO2 ABG O2 Saturation ABG O2 Content ABG Base Excess ABG Hemoglobin ABG Carboxyhemoglobin POC ABG HHb (Measured) ABG Methemoglobin ABG O2 Capacity Haseeb Test A-a O2 Difference Hgb O2 Saturation Vent Mode Mechanical Rate FiO2 Tidal Volume PEEP Sodium Potassium Chloride Carbon Dioxide Anion Gap BUN Creatinine Est GFR ( Amer) Est GFR (Non-Af Amer) POC Glucose (mg/dL) 101 140 H Random Glucose Hemoglobin A1c Lactic Acid Calcium Total Bilirubin AST ALT Alkaline Phosphatase Troponin I Total Protein Albumin Globulin Albumin/Globulin Ratio Triglycerides Cholesterol LDL Cholesterol Direct HDL Cholesterol Vitamin B12 25-OH Vitamin D Total Folate Blood Type O POSITIVE Antibody Screen Negative BBK History Checked Patient has bt 08/13/17 08/13/17 08/13/17 04:20 04:20 05:20 WBC RBC Hgb Hct MCV MCH MCHC RDW Plt Count MPV Neut % (Auto) Lymph % (Auto) [place] % (Auto) Eos % (Auto) Baso % (Auto) Neut # (Auto) Lymph # (Auto) [place] # (Auto) Eos # (Auto) Baso # (Auto) Neutrophils % (Manual) Band Neutrophils % Lymphocytes % (Manual) Reactive Lymphs % Monocytes % (Manual) Platelet Estimate Hypochromasia (manual) Anisocytosis (manual) Helmet Cells PT INR APTT pCO2 pO2 HCO3 ABG pH ABG Total CO2 ABG O2 Saturation ABG O2 Content ABG Base Excess ABG Hemoglobin ABG Carboxyhemoglobin POC ABG HHb (Measured) ABG Methemoglobin ABG O2 Capacity Haseeb Test A-a O2 Difference Hgb O2 Saturation Vent Mode Mechanical Rate FiO2 Tidal Volume PEEP Sodium Potassium Chloride Carbon Dioxide Anion Gap BUN Creatinine Est GFR ( Amer) Est GFR (Non-Af Amer) POC Glucose (mg/dL) 130 H Random Glucose Hemoglobin A1c Lactic Acid Calcium Total Bilirubin AST ALT Alkaline Phosphatase Troponin I Total Protein Albumin Globulin Albumin/Globulin Ratio Triglycerides Cholesterol LDL Cholesterol Direct HDL Cholesterol Vitamin B12 427 25-OH Vitamin D Total < 12.8 L Folate > 20.0 Blood Type Antibody Screen BBK History Checked 08/13/17 08/13/17 08/13/17 08:58 08:58 11:03 WBC 7.3 RBC 3.56 L Hgb 11.0 L Hct 32.4 L MCV 90.8 MCH 30.8 MCHC 33.9 RDW 14.4 Plt Count 330 MPV Neut % (Auto) Lymph % (Auto) [place] % (Auto) Eos % (Auto) Baso % (Auto) Neut # (Auto) Lymph # (Auto) [place] # (Auto) Eos # (Auto) Baso # (Auto) Neutrophils % (Manual) Band Neutrophils % Lymphocytes % (Manual) Reactive Lymphs % Monocytes % (Manual) Platelet Estimate Hypochromasia (manual) Anisocytosis (manual) Helmet Cells PT INR APTT pCO2 pO2 HCO3 ABG pH ABG Total CO2 ABG O2 Saturation ABG O2 Content ABG Base Excess ABG Hemoglobin ABG Carboxyhemoglobin POC ABG HHb (Measured) ABG Methemoglobin ABG O2 Capacity Haseeb Test A-a O2 Difference Hgb O2 Saturation Vent Mode Mechanical Rate FiO2 Tidal Volume PEEP Sodium 139 Potassium 4.1 Chloride 105 Carbon Dioxide 25 Anion Gap 13 BUN 20 Creatinine 1.6 H Est GFR ( Amer) 50 Est GFR (Non-Af Amer) 42 POC Glucose (mg/dL) 191 H Random Glucose 167 H Hemoglobin A1c Lactic Acid Calcium 9.0 Total Bilirubin 0.8 AST 23 ALT 32 Alkaline Phosphatase 121 Troponin I Total Protein 6.7 Albumin 3.4 L Globulin 3.3 Albumin/Globulin Ratio 1.0 Triglycerides Cholesterol LDL Cholesterol Direct HDL Cholesterol Vitamin B12 25-OH Vitamin D Total Folate Blood Type Antibody Screen BBK History Checked 08/13/17 08/13/17 08/13/17 16:04 20:30 21:27 WBC RBC Hgb Hct MCV MCH MCHC RDW Plt Count MPV Neut % (Auto) Lymph % (Auto) [place] % (Auto) Eos % (Auto) Baso % (Auto) Neut # (Auto) Lymph # (Auto) [place] # (Auto) Eos # (Auto) Baso # (Auto) Neutrophils % (Manual) Band Neutrophils % Lymphocytes % (Manual) Reactive Lymphs % Monocytes % (Manual) Platelet Estimate Hypochromasia (manual) Anisocytosis (manual) Helmet Cells PT INR APTT pCO2 48 H pO2 403 H HCO3 21.0 ABG pH 7.27 L ABG Total CO2 23.5 ABG O2 Saturation 100.2 H ABG O2 Content 16.6 ABG Base Excess -5.0 L ABG Hemoglobin 11.4 L ABG Carboxyhemoglobin 1.4 POC ABG HHb (Measured) -0.2 L ABG Methemoglobin 1.9 ABG O2 Capacity 16.6 Haseeb Test Yes A-a O2 Difference 250.0 Hgb O2 Saturation 96.9 Vent Mode Mechanical Rate FiO2 100.0 Tidal Volume PEEP Sodium Potassium Chloride Carbon Dioxide Anion Gap BUN Creatinine Est GFR ( Amer) Est GFR (Non-Af Amer) POC Glucose (mg/dL) 193 H 232 H Random Glucose Hemoglobin A1c Lactic Acid Calcium Total Bilirubin AST ALT Alkaline Phosphatase Troponin I Total Protein Albumin Globulin Albumin/Globulin Ratio Triglycerides Cholesterol LDL Cholesterol Direct HDL Cholesterol Vitamin B12 25-OH Vitamin D Total Folate Blood Type Antibody Screen BBK History Checked 08/13/17 08/13/17 08/13/17 22:21 23:05 23:16 WBC 7.8 RBC 3.71 L Hgb 11.7 L Hct 33.6 L MCV 90.7 MCH 31.6 H MCHC 34.8 RDW 14.1 Plt Count 386 MPV 8.8 Neut % (Auto) 74.3 Lymph % (Auto) 15.0 L [place] % (Auto) 6.6 Eos % (Auto) 3.2 Baso % (Auto) 0.9 Neut # (Auto) 5.8 Lymph # (Auto) 1.2 [place] # (Auto) 0.5 Eos # (Auto) 0.3 Baso # (Auto) 0.1 Neutrophils % (Manual) Band Neutrophils % Lymphocytes % (Manual) Reactive Lymphs % Monocytes % (Manual) Platelet Estimate Hypochromasia (manual) Anisocytosis (manual) Helmet Cells PT INR APTT pCO2 pO2 HCO3 ABG pH ABG Total CO2 ABG O2 Saturation ABG O2 Content ABG Base Excess ABG Hemoglobin ABG Carboxyhemoglobin POC ABG HHb (Measured) ABG Methemoglobin ABG O2 Capacity Haseeb Test A-a O2 Difference Hgb O2 Saturation Vent Mode Mechanical Rate FiO2 Tidal Volume PEEP Sodium Potassium Chloride Carbon Dioxide Anion Gap BUN Creatinine Est GFR ( Amer) Est GFR (Non-Af Amer) POC Glucose (mg/dL) 226 H Random Glucose Hemoglobin A1c Lactic Acid 1.5 Calcium Total Bilirubin AST ALT Alkaline Phosphatase Troponin I Total Protein Albumin Globulin Albumin/Globulin Ratio Triglycerides Cholesterol LDL Cholesterol Direct HDL Cholesterol Vitamin B12 25-OH Vitamin D Total Folate Blood Type Antibody Screen BBK History Checked 08/13/17 08/14/17 08/14/17 23:16 02:19 04:55 WBC 16.4 H D RBC 3.82 L Hgb 11.8 L Hct 35.1 MCV 91.9 MCH 30.8 MCHC 33.5 RDW 14.2 Plt Count 323 MPV 8.2 Neut % (Auto) 84.0 H Lymph % (Auto) 5.9 L [place] % (Auto) 9.4 Eos % (Auto) 0.3 Baso % (Auto) 0.4 Neut # (Auto) 13.8 H Lymph # (Auto) 1.0 [place] # (Auto) 1.5 H Eos # (Auto) 0.0 Baso # (Auto) 0.1 Neutrophils % (Manual) 84 H Band Neutrophils % 1 Lymphocytes % (Manual) 6 L Reactive Lymphs % 1 H Monocytes % (Manual) 8 Platelet Estimate Normal Hypochromasia (manual) Slight Anisocytosis (manual) Slight Helmet Cells Slight PT INR APTT pCO2 42 pO2 299 H HCO3 22.1 ABG pH 7.33 L ABG Total CO2 23.4 ABG O2 Saturation 100.4 H ABG O2 Content 15.8 ABG Base Excess -3.7 L ABG Hemoglobin 11.0 L ABG Carboxyhemoglobin 1.5 POC ABG HHb (Measured) -0.4 L ABG Methemoglobin 1.4 ABG O2 Capacity 15.7 L Haseeb Test Yes A-a O2 Difference 219.0 Hgb O2 Saturation 97.5 Vent Mode A/c Mechanical Rate 14 FiO2 80.0 Tidal Volume 500 PEEP 5 Sodium 136 Potassium 4.0 Chloride 105 Carbon Dioxide 21 L Anion Gap 14 BUN 18 Creatinine 1.5 Est GFR ( Amer) 54 Est GFR (Non-Af Amer) 45 POC Glucose (mg/dL) Random Glucose 245 H Hemoglobin A1c Lactic Acid Calcium 8.4 Total Bilirubin 0.4 AST 33 ALT 28 Alkaline Phosphatase 109 Troponin I 0.1050 Total Protein 6.3 Albumin 3.3 L Globulin 3.0 Albumin/Globulin Ratio 1.1 Triglycerides Cholesterol LDL Cholesterol Direct HDL Cholesterol Vitamin B12 25-OH Vitamin D Total Folate Blood Type Antibody Screen BBK History Checked 08/14/17 08/14/17 08/14/17 04:55 05:24 05:28 WBC RBC Hgb Hct MCV MCH MCHC RDW Plt Count MPV Neut % (Auto) Lymph % (Auto) [place] % (Auto) Eos % (Auto) Baso % (Auto) Neut # (Auto) Lymph # (Auto) [place] # (Auto) Eos # (Auto) Baso # (Auto) Neutrophils % (Manual) Band Neutrophils % Lymphocytes % (Manual) Reactive Lymphs % Monocytes % (Manual) Platelet Estimate Hypochromasia (manual) Anisocytosis (manual) Helmet Cells PT INR APTT pCO2 40 pO2 338 H HCO3 21.4 ABG pH 7.33 L ABG Total CO2 22.3 ABG O2 Saturation 100.1 H ABG O2 Content 15.9 ABG Base Excess -4.5 L ABG Hemoglobin 11.0 L ABG Carboxyhemoglobin 1.2 POC ABG HHb (Measured) -0.1 L ABG Methemoglobin 1.6 ABG O2 Capacity 15.9 L Haseeb Test Yes A-a O2 Difference 182.0 Hgb O2 Saturation 97.3 Vent Mode A/c Mechanical Rate 14 FiO2 80.0 Tidal Volume 500 PEEP 5 Sodium 138 Potassium 4.1 Chloride 106 Carbon Dioxide 20 L Anion Gap 16 BUN 20 Creatinine 1.7 H Est GFR ( Amer) 47 Est GFR (Non-Af Amer) 39 POC Glucose (mg/dL) 171 H Random Glucose 187 H Hemoglobin A1c Lactic Acid Calcium 8.7 Total Bilirubin AST ALT Alkaline Phosphatase Troponin I Total Protein Albumin Globulin Albumin/Globulin Ratio Triglycerides Cholesterol LDL Cholesterol Direct HDL Cholesterol Vitamin B12 25-OH Vitamin D Total Folate Blood Type Antibody Screen BBK History Checked 08/14/17 08/14/17 08/14/17 11:37 16:59 20:50 WBC RBC Hgb Hct MCV MCH MCHC RDW Plt Count MPV Neut % (Auto) Lymph % (Auto) [place] % (Auto) Eos % (Auto) Baso % (Auto) Neut # (Auto) Lymph # (Auto) [place] # (Auto) Eos # (Auto) Baso # (Auto) Neutrophils % (Manual) Band Neutrophils % Lymphocytes % (Manual) Reactive Lymphs % Monocytes % (Manual) Platelet Estimate Hypochromasia (manual) Anisocytosis (manual) Helmet Cells PT INR APTT pCO2 pO2 HCO3 ABG pH ABG Total CO2 ABG O2 Saturation ABG O2 Content ABG Base Excess ABG Hemoglobin ABG Carboxyhemoglobin POC ABG HHb (Measured) ABG Methemoglobin ABG O2 Capacity Haseeb Test A-a O2 Difference Hgb O2 Saturation Vent Mode Mechanical Rate FiO2 Tidal Volume PEEP Sodium Potassium Chloride Carbon Dioxide Anion Gap BUN Creatinine Est GFR ( Amer) Est GFR (Non-Af Amer) POC Glucose (mg/dL) 122 H 127 H 124 H Random Glucose Hemoglobin A1c Lactic Acid Calcium Total Bilirubin AST ALT Alkaline Phosphatase Troponin I Total Protein Albumin Globulin Albumin/Globulin Ratio Triglycerides Cholesterol LDL Cholesterol Direct HDL Cholesterol Vitamin B12 25-OH Vitamin D Total Folate Blood Type Antibody Screen BBK History Checked 08/15/17 08/15/17 08/15/17 04:35 04:35 05:17 WBC 11.4 H RBC 2.90 L Hgb 8.8 L D Hct 26.4 L MCV 90.9 MCH 30.5 MCHC 33.5 RDW 14.5 Plt Count 281 MPV 9.1 Neut % (Auto) 77.7 H Lymph % (Auto) 8.8 L [place] % (Auto) 12.7 H Eos % (Auto) 0.5 Baso % (Auto) 0.3 Neut # (Auto) 8.9 H Lymph # (Auto) 1.0 [place] # (Auto) 1.5 H Eos # (Auto) 0.1 Baso # (Auto) 0.0 Neutrophils % (Manual) Band Neutrophils % Lymphocytes % (Manual) Reactive Lymphs % Monocytes % (Manual) Platelet Estimate Hypochromasia (manual) Anisocytosis (manual) Helmet Cells PT INR APTT pCO2 39 pO2 152 H HCO3 21.1 ABG pH 7.33 L ABG Total CO2 21.8 L ABG O2 Saturation 100.0 H ABG O2 Content 16.7 ABG Base Excess -4.9 L ABG Hemoglobin 12.0 ABG Carboxyhemoglobin 1.5 POC ABG HHb (Measured) 0.0 ABG Methemoglobin 1.4 ABG O2 Capacity 16.7 Haseeb Test Yes A-a O2 Difference 84.0 Hgb O2 Saturation 97.0 Vent Mode Mechanical Rate 8 FiO2 40.0 Tidal Volume 450 PEEP 5 Sodium 140 Potassium 3.7 Chloride 110 H Carbon Dioxide 21 L Anion Gap 13 BUN 17 Creatinine 1.8 H Est GFR ( Amer) 44 Est GFR (Non-Af Amer) 36 POC Glucose (mg/dL) Random Glucose 127 H Hemoglobin A1c Lactic Acid Calcium 7.7 L Total Bilirubin 0.7 AST 24 ALT 24 Alkaline Phosphatase 88 Troponin I Total Protein 5.6 L Albumin 2.7 L Globulin 2.9 Albumin/Globulin Ratio 0.9 L Triglycerides Cholesterol LDL Cholesterol Direct HDL Cholesterol Vitamin B12 25-OH Vitamin D Total Folate Blood Type Antibody Screen BBK History Checked 08/15/17 08/15/1718 06:22 10:35 11:25 WBC 12.1 H RBC 3.19 L Hgb 9.6 L Hct 29.0 L MCV 90.8 MCH 30.1 MCHC 33.2 RDW 14.4 Plt Count 288 MPV Neut % (Auto) Lymph % (Auto) [place] % (Auto) Eos % (Auto) Baso % (Auto) Neut # (Auto) Lymph # (Auto) [place] # (Auto) Eos # (Auto) Baso # (Auto) Neutrophils % (Manual) Band Neutrophils % Lymphocytes % (Manual) Reactive Lymphs % Monocytes % (Manual) Platelet Estimate Hypochromasia (manual) Anisocytosis (manual) Helmet Cells PT INR APTT pCO2 pO2 HCO3 ABG pH ABG Total CO2 ABG O2 Saturation ABG O2 Content ABG Base Excess ABG Hemoglobin ABG Carboxyhemoglobin POC ABG HHb (Measured) ABG Methemoglobin ABG O2 Capacity Haseeb Test A-a O2 Difference Hgb O2 Saturation Vent Mode Mechanical Rate FiO2 Tidal Volume PEEP Sodium Potassium Chloride Carbon Dioxide Anion Gap BUN Creatinine Est GFR ( Amer) Est GFR (Non-Af Amer) POC Glucose (mg/dL) 124 H 145 H Random Glucose Hemoglobin A1c Lactic Acid Calcium Total Bilirubin AST ALT Alkaline Phosphatase Troponin I Total Protein Albumin Globulin Albumin/Globulin Ratio Triglycerides Cholesterol LDL Cholesterol Direct HDL Cholesterol Vitamin B12 25-OH Vitamin D Total Folate Blood Type Antibody Screen BBK History Checked Microbiology 08/13/17 05:04 Naris MRSA Culture (Admit) - Final MRSA NOT DETECTED Accession No. : [id number] Patient Name / ID : MIKE CASTANEDA / [id number] Exam Date : 08/15/2017 04:26:31 ( Approved ) Study Comment : Sex / Age : M / [id number] Creator : Marlon Vasques MD Dictator : Marlon Vasques MD Laboratory Assistant : Instructional Technology Coordinator : Marlon Vasques MD Approver2 : Report Date : 08/15/2017 08:06:35 My Comment : PROCEDURE: CHEST RADIOGRAPH, 1 VIEW HISTORY: Follow-up. COMPARISON: 08/14/2017 FINDINGS: LUNGS: Interval improvement right upper lobe infiltrate in part related to improved inspiratory effort. Persistent atelectasis both lower lobes. PLEURA: No pneumothorax or pleural fluid seen. CARDIOVASCULAR: Normal. OSSEOUS STRUCTURES: No significant abnormalities. VISUALIZED UPPER ABDOMEN: Normal. OTHER FINDINGS: Stable position of support apparatus including nasogastric tube and endotracheal tube. IMPRESSION: Interval improvement in right upper lobe infiltrate. 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 extubated today. clinically improved. remains afebrile leukocytosis decreasing.. Plan- advise to continue with zosyn for HAP . day #2 f/u with sputum cx. monitor wbc. Monitor aspiration precautions all above d/w patient and his family at his bedside. ICU time spent 40 minutes.
--- NOTE | 2017-08-15 15:27 | PCM.PROC ---
Procedures Attestation:: I certify that I have explained the specified Operation(s) or Procedure(s), risks, benefits and reasonable alternatives to the Patient and/or other person responsible. The opportunity was given to ask questions and all questions answered - Extubation RSBI Score: 89 Clinical Parameters: Resolution/Stabilization of disease process, Hemodynamically Stable, Intact Cough/Gag Reflex, Spontaneous Respirations, Acceptable Vent Settings (FIO2<50%, PEEP<8, PaO2>75, pH>7.25) Weaning Criteria Met: Yes General Weaning Approaches: Spontaneous breathing trials and use of T-Piece Patient Condition: Patient has been successfully extubated and assessed Oxygen Therapy: O2 via Venti Mask Patient Tolerated Procedure: Well
--- NOTE | 2017-08-15 20:03 | CON ---
DATE: 08/15/2017 SUBJECTIVE: Mr. Esa Banegas is an 82-year-old male who is status post cerebrovascular accident, presently intubated and being ventilated following what appeared to be an aspiration incident on telemetry. He was referred for pulmonary evaluation and therapy post intubation and ventilation. He is awake and alert and able to follow commands but is unable to give any history. 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 PHYSICAL EXAMINATION: GENERAL: The patient is awake and alert. Presently on CPAP respiratory settings. VITAL SIGNS: Appear stable except for mild elevation of blood pressure. He has spontaneous respirations. MOUTH: ET tube was in place. LUNGS: Shows fair aeration bilaterally. HEART: S1, S2. ABDOMEN: Soft, nontender, no organomegaly. EXTREMITIES: There is right-sided hemiparesis. LABORATORY DATA: Chest x-ray shows no acute cardiopulmonary pathology. WBC 11.4, hemoglobin 8.8, platelet count 281,000. Sodium 140, potassium 3.7, BUN 17, creatinine 1.8, glucose 124. Arterial blood gases show a pH of 7.33, pCO2 of 33, pO2 of 152, bicarbonate of 21.1; this is on FIO2 of 40%, tidal volume 450, mechanical ventilator rate of 8, and PEEP of 5. IMPRESSION: Acute cerebrovascular accident with respiratory failure probably secondary to aspiration pneumonia. PLAN: To continue therapy as ordered. Attempt to extubate the patient once he becomes more awake and has better spontaneous respirations and clinically stabilizes. We will continue to follow with you. Reyes Paul MD
[2017-08-15] MEDS: Latanoprost 0.005% Opht SOUTION OU SCH (21:36)
[2017-08-16] MEDS: Labetalol 5 mg/ml Inj 20ML IVP PRN (05:07)
[2017-08-16 05:42] LABS: BASO # 0.1 K/uL (0.0-0.2); BASO % 0.5 % (0.0-2.0); EOS # 0.3 K/uL (0.0-0.7); EOS % 2.8 % (0.0-4.0); HEMOGLOBIN 9.2 g/dL (12.0-18.0); LYMPH % 8.6 % (20.0-40.0); MEAN CELL VOLUME 92.3 fl (80.0-94.0); MEAN CORPUSCULAR HEMOGLOBIN 30.3 pg (27.0-31.0); MEAN CORPUSCULAR HGB CONC 32.8 g/dL (33.0-37.0); MEAN PLATELET VOLUME 9.2 fl (7.2-11.7); MONO # 1.5 K/uL (0.0-0.8); MONO % 13.4 % (0.0-10.0); NEUT # 8.4 K/uL (1.8-7.0); NEUT % 74.7 % (50.0-75.0); RBC 3.03 Mil/uL (4.40-5.90); RED CELL DISTRIBUTION WIDTH 13.8 % (11.5-14.5); WHITE BLOOD COUNT 11.3 K/uL (4.8-10.8)
[2017-08-16 06:00] LABS: CALCIUM 7.8 mg/dL (8.4-10.2)
[2017-08-16] MEDS: Insulin Lispro (humaLOG) 100 Units/ml Inj SC SCH ×3 (07:22→16:08)
[2017-08-16] MEDS: Albuterol-Ipratrop 3 mg / 0.5 (3 ml) UD INH SCH ×4 (08:00→19:02)
[2017-08-16] MEDS: Fluticasone-Salmeterol 250-50mcg Diskus IH SCH (08:06)
[2017-08-16] MEDS: Enoxaparin 30 mg Syringe SC SCH (08:07)
--- NOTE | 2017-08-16 09:24 | CP.PCM.PN ---
Subjective - Date & Time of Evaluation Date of Evaluation: 08/16/17 Time of Evaluation: 09:18 - Subjective Subjective: Ms. Ibarra was seen and examined at the bedside ICU. He is awake, alert, able to mumble few words. He mostly uses non-verbal cues such as nodding and shaking his head. He denies any headache, dizziness, lightheadedness, nausea, or vomiting. He is able to follow simple commands with right upper extremity flaccidity and weakness of the right lower extremity . According to the daughter , he was able to tolerate po intake yesterday. He is tolerating nasal cannula. His blood pressure has been labile and anti-hypertensive meds given by staff with relief. Objective - Vital Signs/Intake and Output Vital Signs (last 24 hours): Temp Pulse Resp BP Pulse Ox 99.4 F 74 24 173/59 H 100 08/16/17 08:00 08/16/17 09:00 08/16/17 09:00 08/16/17 09:00 08/16/17 09:00 Intake and Output: 08/16/17 08/16/17 06:59 18:59 Intake Total 340 130 Output Total 400 Balance -60 130 - Medications Medications: Current Medications Albuterol Sulfate (Albuterol 0.083% Inhal Bere (2.5 Mg/3 Ml) Ud) 2.5 mg IH Q6 PRN PRN Reason: Shortness of Breath Albuterol/Ipratropium (Duoneb 3 Mg/0.5 Mg (3 Ml) Ud) 3 ml INH RQID [facility] Last Admin: 08/16/17 08:00 Dose: 3 ml Aspirin (Aspirin Chewable) 81 mg PO DAILY [facility] Last Admin: 08/13/17 08:27 Dose: 81 mg Atorvastatin Calcium (Lipitor) 40 mg PO DAILY [facility] Last Admin: 08/16/17 08:47 Dose: 40 mg Carvedilol (Coreg) 12.5 mg PO Q12 [facility] Last Admin: 08/16/17 08:06 Dose: 12.5 mg Cholecalciferol (Vitamin D) 2,000 intlu PO DAILY [facility] Last Admin: 08/13/17 15:32 Dose: 2,000 intlu Clopidogrel Bisulfate (Plavix) 75 mg PO DAILY [facility] Last Admin: 08/16/17 08:06 Dose: 75 mg Enoxaparin Sodium (Lovenox) 30 mg SC DAILY [facility] PRN Reason: Protocol Last Admin: 08/16/17 08:07 Dose: 30 mg Ferrous Sulfate (Feosol) 325 mg PO TID [facility] Last Admin: 08/13/17 18:03 Dose: 325 mg Furosemide (Lasix) 80 mg PO DAILY [facility] Last Admin: 08/13/17 09:42 Dose: Not Given Furosemide (Lasix) 40 mg IV DAILY [facility] Last Admin: 08/16/17 08:46 Dose: 40 mg Sodium Chloride (Sodium Chloride 0.9%) 1,000 mls @ 100 mls/hr IV .Q10H [facility] Last Admin: 08/14/17 13:32 Dose: 100 mls/hr Piperacillin Sod/Tazobactam (Sod 2.25 gm/ Sodium Chloride) 100 mls @ 100 mls/ hr IVPB Q8 [facility] PRN Reason: Protocol Last Admin: 08/16/17 08:08 Dose: 100 mls/hr Insulin Human Lispro (Humalog) 20 units SC BID [facility] Last Admin: 08/13/17 17:30 Dose: Not Given Insulin Human Lispro (Humalog) 0 units SC ACCU-CHECK [facility] PRN Reason: Protocol Last Admin: 08/16/17 07:22 Dose: Not Given Labetalol HCl (Trandate) 20 mg IVP Q4H PRN PRN Reason: MAP>120 Last Admin: 08/16/17 05:07 Dose: 20 mg Latanoprost (Xalatan Opht) 1 drop OU HS [facility] Last Admin: 08/15/17 21:36 Dose: 1 drop Lisinopril (Zestril) 20 mg PO DAILY [facility] Last Admin: 08/16/17 08:08 Dose: 20 mg Multivitamins/Minerals (Therapeutic-M Tab) 1 tab PO DAILY [facility] Last Admin: 08/13/17 08:26 Dose: 1 tab Ondansetron HCl (Zofran Inj) 4 mg IVP Q6 PRN PRN Reason: Nausea/Vomiting Last Admin: 08/14/17 13:16 Dose: 4 mg Pantoprazole Sodium (Protonix Inj) 40 mg IVP DAILY [facility] Last Admin: 08/16/17 08:15 Dose: 40 mg Fluticasone/Salmeterol (Advair Diskus 250/50) 1 puff IH Q12 [facility] Last Admin: 08/16/17 08:06 Dose: 1 puff - Labs Labs: 08/16/17 04:20 08/16/17 04:20 PT 11.8 Seconds (9.8-13.1) 08/12/17 14:35 INR 1.1 (0.9-1.2) 08/12/17 14:35 APTT 32.3 Seconds (25.6-37.1) 08/12/17 14:35 - Constitutional Appears: No Acute Distress - Head Exam Head Exam: NORMAL INSPECTION - Eye Exam Pupil Exam: Unequal Additional comments: left eye 4 mm and right eye 2 mm - Neurological Exam Neurological Exam: Awake Neuro motor strength exam: Left Upper Extremity: 4, Right Upper Extremity: 0, Left Lower Extremity: 3, Right Lower Extremity: 2/1 Additional comments: neurological improved, participates during assessment, sensation remains asymmetrical severino. at the right side. Assessment and Plan (1) Ischemic stroke Assessment & Plan: Case discussed with Dr. Thomas, continue all current medical, physical, occupational, and speech therapies. Recommend starting with electrical stimulation of the right side, renal ultrasound to further evaluate renal artery , acute rehab for discharge planning, blood pressure and glycemic control. If the patient further declines with mental status, to repeat CT scan of the head without contrast. Status: Acute
--- NOTE | 2017-08-16 10:28 | CP.PCM.PN ---
Subjective - Date & Time of Evaluation Date of Evaluation: 08/16/17 Time of Evaluation: 10:28 - Subjective Subjective: Yesterday morning, pt was extubated yesterday afternoon. Breathing via NC. No acute overnight events. Pt seen and examined in ICU. Awake, alert, answers questions with nodding. Denies headache, vision changes, n/v. Endorsing mild dyspnea. Objective - Vital Signs/Intake and Output Vital Signs (last 24 hours): Temp Pulse Resp BP Pulse Ox 99.4 F 73 26 H 169/62 H 100 08/16/17 08:00 08/16/17 10:00 08/16/17 10:00 08/16/17 10:00 08/16/17 10:00 Intake and Output: 08/16/17 08/16/17 06:59 18:59 Intake Total 340 470 Output Total 400 Balance -60 470 - Medications Medications: Current Medications Albuterol Sulfate (Albuterol 0.083% Inhal Bere (2.5 Mg/3 Ml) Ud) 2.5 mg IH Q6 PRN PRN Reason: Shortness of Breath Albuterol/Ipratropium (Duoneb 3 Mg/0.5 Mg (3 Ml) Ud) 3 ml INH RQID [facility] Last Admin: 08/16/17 08:00 Dose: 3 ml Aspirin (Aspirin Chewable) 81 mg PO DAILY [facility] Last Admin: 08/16/17 09:19 Dose: 81 mg Atorvastatin Calcium (Lipitor) 40 mg PO DAILY [facility] Last Admin: 08/16/17 08:47 Dose: 40 mg Carvedilol (Coreg) 12.5 mg PO Q12 [facility] Last Admin: 08/16/17 08:06 Dose: 12.5 mg Cholecalciferol (Vitamin D) 2,000 intlu PO DAILY [facility] Last Admin: 08/13/17 15:32 Dose: 2,000 intlu Clopidogrel Bisulfate (Plavix) 75 mg PO DAILY [facility] Last Admin: 08/16/17 08:06 Dose: 75 mg Enoxaparin Sodium (Lovenox) 30 mg SC DAILY [facility] PRN Reason: Protocol Last Admin: 08/16/17 08:07 Dose: 30 mg Ferrous Sulfate (Feosol) 325 mg PO TID [facility] Last Admin: 08/13/17 18:03 Dose: 325 mg Furosemide (Lasix) 80 mg PO DAILY [facility] Last Admin: 08/13/17 09:42 Dose: Not Given Sodium Chloride (Sodium Chloride 0.9%) 1,000 mls @ 100 mls/hr IV .Q10H [facility] Last Admin: 08/14/17 13:32 Dose: 100 mls/hr Piperacillin Sod/Tazobactam (Sod 2.25 gm/ Sodium Chloride) 100 mls @ 100 mls/ hr IVPB Q8 [facility] PRN Reason: Protocol Last Admin: 08/16/17 08:08 Dose: 100 mls/hr Insulin Human Lispro (Humalog) 20 units SC BID [facility] Last Admin: 08/13/17 17:30 Dose: Not Given Insulin Human Lispro (Humalog) 0 units SC ACCU-CHECK [facility] PRN Reason: Protocol Last Admin: 08/16/17 07:22 Dose: Not Given Labetalol HCl (Trandate) 20 mg IVP Q4H PRN PRN Reason: MAP>120 Last Admin: 08/16/17 05:07 Dose: 20 mg Latanoprost (Xalatan Opht) 1 drop OU HS [facility] Last Admin: 08/15/17 21:36 Dose: 1 drop Lisinopril (Zestril) 20 mg PO DAILY [facility] Last Admin: 08/16/17 08:08 Dose: 20 mg Multivitamins/Minerals (Therapeutic-M Tab) 1 tab PO DAILY [facility] Last Admin: 08/13/17 08:26 Dose: 1 tab Ondansetron HCl (Zofran Inj) 4 mg IVP Q6 PRN PRN Reason: Nausea/Vomiting Last Admin: 08/14/17 13:16 Dose: 4 mg Pantoprazole Sodium (Protonix Inj) 40 mg IVP DAILY [facility] Last Admin: 08/16/17 08:15 Dose: 40 mg Fluticasone/Salmeterol (Advair Diskus 250/50) 1 puff IH Q12 [facility] Last Admin: 08/16/17 08:06 Dose: 1 puff - Labs Labs: 08/16/17 04:20 08/16/17 04:20 PT 11.8 Seconds (9.8-13.1) 08/12/17 14:35 INR 1.1 (0.9-1.2) 08/12/17 14:35 APTT 32.3 Seconds (25.6-37.1) 08/12/17 14:35 - Constitutional Appears: Other (abdominal breathing ) - Head Exam Head Exam: ATRAUMATIC, NORMAL INSPECTION Additional comments: NC on 2L Aphasic R sided facial droop noted - Eye Exam Eye Exam: EOMI - ENT Exam ENT Exam: Mucous Membranes Moist - Respiratory Exam Respiratory Exam: Clear to Ausculation Bilateral, NORMAL BREATHING PATTERN. absent: Wheezes - Cardiovascular Exam Cardiovascular Exam: REGULAR RHYTHM, +S1, +S2 - GI/Abdominal Exam GI & Abdominal Exam: Soft, Normal Bowel Sounds. absent: Tenderness - Exam Exam: NORMAL INSPECTION (hollis in palce, yellow/orange urine ). absent: Scrotal Swelling - Extremities Exam Extremities Exam: Full ROM, Normal Inspection. absent: Calf Tenderness, Pedal Edema Additional comments: IV line on R hand; running abx - Neurological Exam Neurological Exam: Alert, Awake Additional comments: Moving Left upper extremity Moving R fingers only Moving both lower extremities L>R - Psychiatric Exam Psychiatric exam: Normal Affect, Normal Mood Assessment and Plan - Assessment and Plan (Free Text) Assessment: Assessment/Plan: 82 YO male with PMHz of Diastolic HF, COPD, CAD s/p stent x 4, CKD, DM2 on insulin, HTN, HLD, Colon CA s/p surgery (1961), TIA/CVA (1988), left eye blindness/diabetic retinopathy admitted for acute stroke. Admission complicated by subsequent stroke, hypoxia requiring intubation, s/p extubation. Acute Stroke, L temporal/occipital junction (08/12) and acute infract L frontal lobe (08/13) -MRI head 08/12; acute stroke in region of the left temporal/occipital junction; no hemorrhage. -CTA head and neck 08/12: Occluded left ICA chronic, Mild proximal b/l vertebral artery atherosclerosis -EKG 08/12: Sinus bradycardia with occasional premature ventricular complexes, Left ventricular hypertrophy with repolarization abnormality -Repeat CT 08/13: acute infract left frontal lobe -Neuro on consult; change aspirin po to TN until ogt/ NGT inserted, permissive HTN until 12 noon today, blood pressure and glycemic control. If the patient further declines with mental status, to repeat CT scan of the head without contrast. -c/w Aspirin and Plavix -will cont PO meds as per ICU team -Neuro on board; cont meds; Continue all current medical, PT/OT. Recommend starting with electrical stimulation of the right side. If the patient further declines with mental status, to repeat CT scan of the head without contrast. -passes swallow eval this AM -PT/OT evaluation -modified dysphagia diet started -if pt remains stable will consider transfer to telemetry at a later time Pneumonia, RUL -Chest x-ray 08/14/17; RUL infiltrate -likely aspiration pneumonia -finding not seen on chest xray 08/12 -WBC elevated today, 16.4 with increase neutrophils -remains afebrile, currently intubated -ID and pulmonary consulted; start zosyn for aspiration pneumonitis -ID on board; Pt started on Zosyn (D3) -follow up pulmonary recs Hypoxia, Intubation -s/p extubation 08/15 -intubation, propofol during [employer] -laborious breathing on 2L NC -sedation off -O2 100% Low vitamin D -Vit D level <12.8 -c/w 2000mg vit D daily HTN - Uncontrolled -C/w home meds, Lisinopril 10daily, Carvidilol 12.5 post intubation -will continue all held meds -renal ultrasounds as outpatient -Monitor BP closely CAD s/p stent x 4 -EKG: Sinus bradycardia with occasional premature ventricular complexes,Left ventricular hypertrophy with repolarization abnormality -echo normal LV, EF 55-60% -c/w Coreg, Statin, ASA and plavix History of Diastolic HF -Last ECHO from 11/2013 --> Normal LV syst function; Concentric LVH; Impaired Diastolic function -echo normal LV, EF 55-60% -C/w Home meds Lasix 80mg PO daily -Continue Lipitor 40 mg, ASA 81mg -Out patient Cardiology: Dr. Carlos DM2 on insulin -C/w Home insulin -Correction scale -HBA1C 9.2 DVT PPX -Lovenox 40mg daily
--- NOTE | 2017-08-16 12:50 | CP.PCM.PN ---
Subjective - Date & Time of Evaluation Date of Evaluation: 08/16/17 Time of Evaluation: 12:50 - Subjective Subjective: EXTUBATED CLINICALLY COMFORTABLE NO SOB Objective - Vital Signs/Intake and Output Vital Signs (last 24 hours): Temp Pulse Resp BP Pulse Ox 98.8 F 64 24 133/54 L 100 08/16/17 12:00 08/16/17 12:00 08/16/17 12:00 08/16/17 12:00 08/16/17 12:00 Intake and Output: 08/16/17 08/16/17 06:59 18:59 Intake Total 340 590 Output Total 400 Balance -60 590 - Medications Medications: Current Medications Albuterol Sulfate (Albuterol 0.083% Inhal Bere (2.5 Mg/3 Ml) Ud) 2.5 mg IH Q6 PRN PRN Reason: Shortness of Breath Albuterol/Ipratropium (Duoneb 3 Mg/0.5 Mg (3 Ml) Ud) 3 ml INH RQID [facility] Last Admin: 08/16/17 11:23 Dose: 3 ml Aspirin (Aspirin Chewable) 81 mg PO DAILY [facility] Last Admin: 08/16/17 09:19 Dose: 81 mg Atorvastatin Calcium (Lipitor) 40 mg PO DAILY [facility] Last Admin: 08/16/17 08:47 Dose: 40 mg Carvedilol (Coreg) 12.5 mg PO Q12 [facility] Last Admin: 08/16/17 08:06 Dose: 12.5 mg Cholecalciferol (Vitamin D) 2,000 intlu PO DAILY [facility] Last Admin: 08/13/17 15:32 Dose: 2,000 intlu Clopidogrel Bisulfate (Plavix) 75 mg PO DAILY [facility] Last Admin: 08/16/17 08:06 Dose: 75 mg Enoxaparin Sodium (Lovenox) 30 mg SC DAILY [facility] PRN Reason: Protocol Last Admin: 08/16/17 08:07 Dose: 30 mg Ferrous Sulfate (Feosol) 325 mg PO TID [facility] Last Admin: 08/13/17 18:03 Dose: 325 mg Furosemide (Lasix) 80 mg PO DAILY [facility] Last Admin: 08/13/17 09:42 Dose: Not Given Sodium Chloride (Sodium Chloride 0.9%) 1,000 mls @ 100 mls/hr IV .Q10H [facility] Last Admin: 06/13/18 13:32 Dose: 100 mls/hr Piperacillin Sod/Tazobactam (Sod 2.25 gm/ Sodium Chloride) 100 mls @ 100 mls/ hr IVPB Q8 [facility] PRN Reason: Protocol Last Admin: 08/16/17 08:08 Dose: 100 mls/hr Insulin Human Lispro (Humalog) 20 units SC BID [facility] Last Admin: 08/13/17 17:30 Dose: Not Given Insulin Human Lispro (Humalog) 0 units SC ACCU-CHECK [facility] PRN Reason: Protocol Last Admin: 08/16/17 11:14 Dose: 3 units Labetalol HCl (Trandate) 20 mg IVP Q4H PRN PRN Reason: MAP>120 Last Admin: 08/16/17 05:07 Dose: 20 mg Latanoprost (Xalatan Opht) 1 drop OU HS [facility] Last Admin: 08/15/17 21:36 Dose: 1 drop Lisinopril (Zestril) 20 mg PO DAILY [facility] Last Admin: 08/16/17 08:08 Dose: 20 mg Multivitamins/Minerals (Therapeutic-M Tab) 1 tab PO DAILY [facility] Last Admin: 08/13/17 08:26 Dose: 1 tab Ondansetron HCl (Zofran Inj) 4 mg IVP Q6 PRN PRN Reason: Nausea/Vomiting Last Admin: 08/14/17 13:16 Dose: 4 mg Pantoprazole Sodium (Protonix Inj) 40 mg IVP DAILY [facility] Last Admin: 08/16/17 08:15 Dose: 40 mg Fluticasone/Salmeterol (Advair Diskus 250/50) 1 puff IH Q12 [facility] Last Admin: 08/16/17 08:06 Dose: 1 puff - Labs Labs: 08/16/17 04:20 08/16/17 04:20 PT 11.8 Seconds (9.8-13.1) 08/12/17 14:35 INR 1.1 (0.9-1.2) 08/12/17 14:35 APTT 32.3 Seconds (25.6-37.1) 08/12/17 14:35 - Constitutional Appears: No Acute Distress - Head Exam Head Exam: ATRAUMATIC, NORMAL INSPECTION, NORMOCEPHALIC - Eye Exam Eye Exam: EOMI, Normal appearance, PERRL Pupil Exam: NORMAL ACCOMODATION, PERRL - ENT Exam ENT Exam: Mucous Membranes Moist, Normal Exam - Neck Exam Neck Exam: Full ROM, Normal Inspection. absent: Lymphadenopathy - Respiratory Exam Respiratory Exam: Clear to Ausculation Bilateral, NORMAL BREATHING PATTERN - Cardiovascular Exam Cardiovascular Exam: REGULAR RHYTHM, +S1, +S2. absent: Murmur - GI/Abdominal Exam GI & Abdominal Exam: Soft, Normal Bowel Sounds. absent: Tenderness - Rectal Exam Rectal Exam: NORMAL INSPECTION - Extremities Exam Extremities Exam: Full ROM, Normal Capillary Refill, Normal Inspection. absent : Joint Swelling, Pedal Edema - Back Exam Back Exam: NORMAL INSPECTION - Neurological Exam Neurological Exam: Alert, Awake, CN II-XII Intact, Oriented x3 Additional comments: R HEMIPARESES - Psychiatric Exam Psychiatric exam: Normal Affect, Normal Mood - Skin Skin Exam: Dry, Intact, Normal Color, Warm Assessment and Plan - Assessment and Plan (Free Text) Assessment: CVA RESPIRATORY FAILURE IMPROVED Plan: CONTINUE CURRENT RX
[2017-08-17 05:47] LABS: BASO % 0.5 % (0.0-2.0); EOS # 0.5 K/uL (0.0-0.7); EOS % 6.3 % (0.0-4.0); HEMOGLOBIN 9.3 g/dL (12.0-18.0); LYMPH # 0.9 K/uL (1.0-4.3); LYMPH % 10.8 % (20.0-40.0); MEAN CELL VOLUME 90.8 fl (80.0-94.0); MEAN CORPUSCULAR HEMOGLOBIN 30.4 pg (27.0-31.0); MEAN CORPUSCULAR HGB CONC 33.5 g/dL (33.0-37.0); MONO # 1.1 K/uL (0.0-0.8); MONO % 13.1 % (0.0-10.0); NEUT # 5.9 K/uL (1.8-7.0); NEUT % 69.3 % (50.0-75.0); RBC 3.07 Mil/uL (4.40-5.90); RED CELL DISTRIBUTION WIDTH 14.1 % (11.5-14.5); WHITE BLOOD COUNT 8.6 K/uL (4.8-10.8)
[2017-08-17 06:04] LABS: CALCIUM 8.1 mg/dL (8.4-10.2)
[2017-08-17] MEDS: Labetalol 5 mg/ml Inj 20ML IVP PRN (06:51)
[2017-08-17] MEDS: Albuterol-Ipratrop 3 mg / 0.5 (3 ml) UD INH SCH ×4 (07:24→19:14)
[2017-08-17] MEDS: Insulin Lispro (humaLOG) 100 Units/ml Inj SC SCH ×3 (07:32→17:26)
--- NOTE | 2017-08-17 07:36 | CP.CCUPN ---
CCU Subjective - Physician Review Events Since Last Encounter (Free Text): Patient awake, no distress, on O2 supplement by nasal canula, no vomiting, no fever, events reviewed CCU Objective - Vital Signs / Intake & Output Vital Signs (Last 4 hours): Vital Signs Temp Pulse Resp BP 08/17/17 04:00 98.7 F 70 20 189/84 H Intake and Output (Last 8hrs): Intake & Output 08/16/17 08/17/17 08/17/17 22:59 06:59 14:59 Intake Total 580 0 Output Total 1125 275 Balance -545 -275 Intake: Oral 580 0 Output: Urine 1125 275 2-way Urethral 1125 275 - Physical Exam Head: Positive for: Atraumatic Pupils: Positive for: PERRL Mouth: Positive for: Moist Mucous Membranes. Negative for: Drooling Nose (External): Positive for: Atraumatic Neck: Negative for: JVD, Lymphadenopathy Respiratory/Chest: Positive for: Clear to Auscultation. Negative for: Wheezes, Retracting, Rhonchi Cardiovascular: Positive for: Regular Rate and Rhythm, Normal S1, S2. Negative for: Tachycardic, Bradycardic, Gallop Abdomen: Positive for: Normal Bowel Sounds. Negative for: Distention, Peritoneal Signs Upper Extremity: Positive for: Capillary Refill < 2s. Negative for: Cyanosis, Edema, Swelling, Erythema, Temperature Abnormalties Lower Extremity: Positive for: NORMAL PULSES, Capillary Refill < 2 s, Other ( Chronic dermatitis color changes). Negative for: Edema, Swelling, Erythema, Temperature Abnormalties Skin: Positive for: Warm. Negative for: Erythematous, Hot, Cold, Pale Psychiatric: Positive for: Alert - Medications Active Medications: Active Medications Generic Name Dose Route Start Last Admin Trade Name Freq PRN Reason Stop Dose Admin Albuterol Sulfate 2.5 mg 08/12/17 17:20 Albuterol 0.083% Inhal Bere (2.5 Mg/3 Ml) Ud IH Q6 PRN Shortness of Breath Albuterol/Ipratropium 3 ml 08/14/17 16:00 08/17/17 07:24 Duoneb 3 Mg/0.5 Mg (3 Ml) Ud INH 3 ml RQID TREY Administration Aspirin 81 mg 08/13/17 09:00 08/16/17 09:19 Aspirin Chewable PO 81 mg DAILY TREY Administration Atorvastatin Calcium 40 mg 08/13/17 09:00 08/16/17 08:47 Lipitor PO 40 mg DAILY TREY Administration Carvedilol 12.5 mg 08/13/17 15:40 08/16/17 08:06 Coreg PO 12.5 mg Q12 TREY Administration Cholecalciferol 2,000 intlu 08/13/17 13:30 08/13/17 15:32 Vitamin D PO 2,000 intlu DAILY TREY Administration Clopidogrel Bisulfate 75 mg 08/13/17 09:00 08/16/17 08:06 Plavix PO 75 mg DAILY TREY Administration Enoxaparin Sodium 30 mg 08/14/17 09:00 08/16/17 08:07 Lovenox SC 30 mg DAILY TREY Administration Protocol Ferrous Sulfate 325 mg 08/13/17 09:00 08/13/17 18:03 Feosol PO 325 mg TID TREY Administration Furosemide 80 mg 08/13/17 09:00 08/13/17 09:42 Lasix PO Not Given DAILY [facility] Sodium Chloride 1,000 mls @ 100 mls/hr 08/12/17 14:45 08/14/17 13:32 Sodium Chloride 0.9% IV 100 mls/hr .Q10H TREY Administration Piperacillin Sod/Tazobactam 100 mls @ 100 mls/hr 08/14/17 17:00 08/17/17 01: 31 Sod 2.25 gm/ Sodium Chloride IVPB 100 mls/hr Q8 TREY Administration Protocol Insulin Human Lispro 20 units 08/13/17 09:00 08/13/17 17:30 Humalog SC Not Given BID [facility] Insulin Human Lispro 0 units 08/13/17 19:12 08/17/17 07:32 Humalog SC Not Given ACCU-CHECK [facility] Protocol Labetalol HCl 20 mg 08/15/17 11:05 08/17/17 06:51 Trandate IVP 20 mg Q4H PRN Administration MAP>120 Latanoprost 1 drop 08/12/17 22:00 08/15/17 21:36 Xalatan Opht OU 1 drop HS TREY Administration Lisinopril 20 mg 08/13/17 15:40 08/16/17 08:08 Zestril PO 20 mg DAILY [facility] Administration Multivitamins/Minerals 1 tab 08/13/17 09:00 08/13/17 08:26 Therapeutic-M Tab PO 1 tab DAILY TREY Administration Ondansetron HCl 4 mg 08/14/17 12:44 08/14/17 13:16 Zofran Inj IVP 4 mg Q6 PRN Administration Nausea/Vomiting Pantoprazole Sodium 40 mg 08/14/17 09:00 08/16/17 08:15 Protonix Inj IVP 40 mg DAILY TREY Administration Fluticasone/Salmeterol 1 puff 08/12/17 21:00 08/16/17 08:06 Advair Diskus 250/50 IH 1 puff Q12 TREY Administration - Patient Studies Lab Studies: Microbiology Studies 08/14/17 21:35 Blood Culture - Preliminary Blood NO GROWTH AFTER 48 HOURS 08/14/17 21:00 Blood Culture - Preliminary Blood NO GROWTH AFTER 48 HOURS 08/14/17 19:20 Gram Stain - Final Trachasp Sputum Culture - Preliminary Gram Negative [facility] Studies 08/17/17 08/17/17 08/17/17 Range/Units 07:29 05:17 05:17 WBC (4.8-10.8) K/uL RBC (4.40-5.90) Mil/uL Hgb (12.0-18.0) g/dL Hct (35.0-51.0) % MCV (80.0-94.0) fl MCH (27.0-31.0) pg MCHC (33.0-37.0) g/dL RDW (11.5-14.5) % Plt Count (130-400) K/uL MPV (7.2-11.7) fl Neut % (Auto) (50.0-75.0) % Lymph % (Auto) (20.0-40.0) % [place] % (Auto) (0.0-10.0) % Eos % (Auto) (0.0-4.0) % Baso % (Auto) (0.0-2.0) % Neut # (Auto) (1.8-7.0) K/uL Lymph # (Auto) (1.0-4.3) K/uL [place] # (Auto) (0.0-0.8) K/uL Eos # (Auto) (0.0-0.7) K/uL Baso # (Auto) (0.0-0.2) K/uL Sodium 145 (132-148) mmol/l Potassium 3.8 (3.6-5.0) MMOL/L Chloride 108 H (98-107) mmol/L Carbon Dioxide 27 (22-30) mmol/L Anion Gap 14 (10-20) BUN 20 (9-20) mg/dl Creatinine 1.9 H (0.8-1.5) mg/dl Est GFR ( Amer) 41 Est GFR (Non-Af Amer) 34 POC Glucose (mg/dL) 141 H 128 H (65-110) mg/dL Random Glucose 134 H (75-110) mg/dL Calcium 8.1 L (8.4-10.2) mg/dL Prolactin (3.7-17.9) ng/mL 08/17/17 08/16/17 08/16/17 Range/Units 05:17 21:14 15:45 WBC 8.6 (4.8-10.8) K/uL RBC 3.07 L (4.40-5.90) Mil/uL Hgb 9.3 L (12.0-18.0) g/dL Hct 27.9 L (35.0-51.0) % MCV 90.8 (80.0-94.0) fl MCH 30.4 (27.0-31.0) pg MCHC 33.5 (33.0-37.0) g/dL RDW 14.1 (11.5-14.5) % Plt Count 294 (130-400) K/uL MPV 9.0 (7.2-11.7) fl Neut % (Auto) 69.3 (50.0-75.0) % Lymph % (Auto) 10.8 L (20.0-40.0) % [place] % (Auto) 13.1 H (0.0-10.0) % Eos % (Auto) 6.3 H (0.0-4.0) % Baso % (Auto) 0.5 (0.0-2.0) % Neut # (Auto) 5.9 (1.8-7.0) K/uL Lymph # (Auto) 0.9 L (1.0-4.3) K/uL [place] # (Auto) 1.1 H (0.0-0.8) K/uL Eos # (Auto) 0.5 (0.0-0.7) K/uL Baso # (Auto) 0.0 (0.0-0.2) K/uL Sodium (132-148) mmol/l Potassium (3.6-5.0) MMOL/L Chloride (98-107) mmol/L Carbon Dioxide (22-30) mmol/L Anion Gap (10-20) BUN (9-20) mg/dl Creatinine (0.8-1.5) mg/dl Est GFR ( Amer) Est GFR (Non-Af Amer) POC Glucose (mg/dL) 176 H 133 H (65-110) mg/dL Random Glucose (75-110) mg/dL Calcium (8.4-10.2) mg/dL Prolactin (3.7-17.9) ng/mL 08/16/17 08/16/17 Range/Units 11:07 10:59 WBC (4.8-10.8) K/uL RBC (4.40-5.90) Mil/uL Hgb (12.0-18.0) g/dL Hct (35.0-51.0) % MCV (80.0-94.0) fl MCH (27.0-31.0) pg MCHC (33.0-37.0) g/dL RDW (11.5-14.5) % Plt Count (130-400) K/uL MPV (7.2-11.7) fl Neut % (Auto) (50.0-75.0) % Lymph % (Auto) (20.0-40.0) % [place] % (Auto) (0.0-10.0) % Eos % (Auto) (0.0-4.0) % Baso % (Auto) (0.0-2.0) % Neut # (Auto) (1.8-7.0) K/uL Lymph # (Auto) (1.0-4.3) K/uL [place] # (Auto) (0.0-0.8) K/uL Eos # (Auto) (0.0-0.7) K/uL Baso # (Auto) (0.0-0.2) K/uL Sodium (132-148) mmol/l Potassium (3.6-5.0) MMOL/L Chloride (98-107) mmol/L Carbon Dioxide (22-30) mmol/L Anion Gap (10-20) BUN (9-20) mg/dl Creatinine (0.8-1.5) mg/dl Est GFR ( Amer) Est GFR (Non-Af Amer) POC Glucose (mg/dL) 203 H (65-110) mg/dL Random Glucose (75-110) mg/dL Calcium (8.4-10.2) mg/dL Prolactin 8.3 (3.7-17.9) ng/mL Laboratory Results - last 24 hr 08/16/17 08/16/17 08/16/17 10:59 11:07 15:45 WBC RBC Hgb Hct MCV MCH MCHC RDW Plt Count MPV Neut % (Auto) Lymph % (Auto) [place] % (Auto) Eos % (Auto) Baso % (Auto) Neut # (Auto) Lymph # (Auto) [place] # (Auto) Eos # (Auto) Baso # (Auto) Sodium Potassium Chloride Carbon Dioxide Anion Gap BUN Creatinine Est GFR ( Amer) Est GFR (Non-Af Amer) POC Glucose (mg/dL) 203 H 133 H Random Glucose Calcium Prolactin 8.3 08/16/17 08/17/17 08/17/17 21:14 05:17 05:17 WBC 8.6 RBC 3.07 L Hgb 9.3 L Hct 27.9 L MCV 90.8 MCH 30.4 MCHC 33.5 RDW 14.1 Plt Count 294 MPV 9.0 Neut % (Auto) 69.3 Lymph % (Auto) 10.8 L [place] % (Auto) 13.1 H Eos % (Auto) 6.3 H Baso % (Auto) 0.5 Neut # (Auto) 5.9 Lymph # (Auto) 0.9 L [place] # (Auto) 1.1 H Eos # (Auto) 0.5 Baso # (Auto) 0.0 Sodium 145 Potassium 3.8 Chloride 108 H Carbon Dioxide 27 Anion Gap 14 BUN 20 Creatinine 1.9 H Est GFR ( Amer) 41 Est GFR (Non-Af Amer) 34 POC Glucose (mg/dL) 176 H Random Glucose 134 H Calcium 8.1 L Prolactin 08/17/17 08/17/17 05:17 07:29 WBC RBC Hgb Hct MCV MCH MCHC RDW Plt Count MPV Neut % (Auto) Lymph % (Auto) [place] % (Auto) Eos % (Auto) Baso % (Auto) Neut # (Auto) Lymph # (Auto) [place] # (Auto) Eos # (Auto) Baso # (Auto) Sodium Potassium Chloride Carbon Dioxide Anion Gap BUN Creatinine Est GFR ( Amer) Est GFR (Non-Af Amer) POC Glucose (mg/dL) 128 H 141 H Random Glucose Calcium Prolactin Fingerstick Blood Sugar Results: 141 Critical Care Progress Note - Nutrition Nutrition: Nutrition Category Date Time Status Dysphagia/Modified Consistency Diet [DIET] Diets 08/15/17 Dinner Active Assessment/Plan - Assessment and Plan (Free Text) Assessment: A/P Respiratory insufficiency, CVA, pneumonia, HTN - O2 supplement - Pulmonary toilets - Continue meds - BP control - Neurology follow up
[2017-08-17] MEDS: Enoxaparin 30 mg Syringe SC SCH (08:28)
--- NOTE | 2017-08-17 10:02 | RAD ---
PROCEDURE: CHEST RADIOGRAPH, 1 VIEW HISTORY: SOB COMPARISON: Chest radiograph dated 08/15/2017 FINDINGS: LUNGS: Stable pulmonary vascular congestion and bibasilar atelectasis. Continued improvement of right upper lobe infiltrate. PLEURA: Small left pleural effusion. No appreciable pneumothorax. CARDIOVASCULAR: Normal. OSSEOUS STRUCTURES: No significant abnormalities. VISUALIZED UPPER ABDOMEN: Left upper quadrant surgical clips redemonstrated. OTHER FINDINGS: Removal of enteric tube. IMPRESSION: Continued improvement of right upper lobe infiltrate. Grossly stable small left pleural effusion.
--- NOTE | 2017-08-17 10:32 | CP.PCM.PN ---
Subjective - Date & Time of Evaluation Date of Evaluation: 08/17/17 Time of Evaluation: 10:32 - Subjective Subjective: ID note- patient seen and examined today in ICU. pt. awake and alert . denies nay sob today. as per nurse his BP has been high. he denies any MCEKON. Objective - Vital Signs/Intake and Output Vital Signs (last 24 hours): Temp Pulse Resp BP Pulse Ox 99.4 F 63 21 184/70 H 100 08/17/17 07:00 08/17/17 09:00 08/17/17 09:00 08/17/17 09:00 08/17/17 09:00 Intake and Output: 08/17/17 08/17/17 06:59 18:59 Intake Total 100 310 Output Total 700 Balance -600 310 - Medications Medications: Current Medications Albuterol Sulfate (Albuterol 0.083% Inhal Bere (2.5 Mg/3 Ml) Ud) 2.5 mg IH Q6 PRN PRN Reason: Shortness of Breath Albuterol/Ipratropium (Duoneb 3 Mg/0.5 Mg (3 Ml) Ud) 3 ml INH RQID [facility] Last Admin: 08/17/17 07:24 Dose: 3 ml Aspirin (Aspirin Chewable) 81 mg PO DAILY [facility] Last Admin: 08/17/17 08:28 Dose: 81 mg Atorvastatin Calcium (Lipitor) 40 mg PO DAILY [facility] Last Admin: 08/17/17 08:27 Dose: 40 mg Carvedilol (Coreg) 12.5 mg PO Q12 [facility] Last Admin: 08/17/17 08:27 Dose: 12.5 mg Cholecalciferol (Vitamin D) 2,000 intlu PO DAILY [facility] Last Admin: 08/13/17 15:32 Dose: 2,000 intlu Clopidogrel Bisulfate (Plavix) 75 mg PO DAILY [facility] Last Admin: 08/17/17 08:28 Dose: 75 mg Enoxaparin Sodium (Lovenox) 30 mg SC DAILY [facility] PRN Reason: Protocol Last Admin: 08/17/17 08:28 Dose: 30 mg Ferrous Sulfate (Feosol) 325 mg PO TID [facility] Last Admin: 08/13/17 18:03 Dose: 325 mg Furosemide (Lasix) 80 mg PO DAILY [facility] Last Admin: 08/13/17 09:42 Dose: Not Given Sodium Chloride (Sodium Chloride 0.9%) 1,000 mls @ 100 mls/hr IV .Q10H [facility] Last Admin: 08/14/17 13:32 Dose: 100 mls/hr Piperacillin Sod/Tazobactam (Sod 2.25 gm/ Sodium Chloride) 100 mls @ 100 mls/ hr IVPB Q8 TREY PRN Reason: Protocol Last Admin: 08/17/17 08:29 Dose: 100 mls/hr Insulin Human Lispro (Humalog) 20 units SC BID [facility] Last Admin: 08/13/17 17:30 Dose: Not Given Insulin Human Lispro (Humalog) 0 units SC ACCU-CHECK [facility]RE[facility] PRN Reason: Protocol Last Admin: 08/17/17 07:32 Dose: Not Given Labetalol HCl (Trandate) 20 mg IVP Q4H PRN PRN Reason: MAP>120 Last Admin: 08/17/17 06:51 Dose: 20 mg Latanoprost (Xalatan Opht) 1 drop OU HS [facility] Last Admin: 08/15/17 21:36 Dose: 1 drop Lisinopril (Zestril) 20 mg PO DAILY [facility] Last Admin: 08/17/17 08:29 Dose: 20 mg Multivitamins/Minerals (Therapeutic-M Tab) 1 tab PO DAILY [facility] Last Admin: 08/13/17 08:26 Dose: 1 tab Ondansetron HCl (Zofran Inj) 4 mg IVP Q6 PRN PRN Reason: Nausea/Vomiting Last Admin: 08/14/17 13:16 Dose: 4 mg Pantoprazole Sodium (Protonix Inj) 40 mg IVP DAILY [facility] Last Admin: 08/17/17 08:28 Dose: 40 mg Fluticasone/Salmeterol (Advair Diskus 250/50) 1 puff IH Q12 [facility] Last Admin: 08/16/17 08:06 Dose: 1 puff - Labs Labs: - Additional Findings Additional findings: - Constitutional Appears: No Acute Distress Additional comments: awake and alert - Head Exam Head Exam: ATRAUMATIC - Eye Exam Eye Exam: EOMI - Neck Exam Neck exam: Positive for: Full Rom - Respiratory Exam Additional comments: god aeration B/L no wheezing - Cardiovascular Exam Cardiovascular Exam: RRR, +S1, +S2 - GI/Abdominal Exam GI & Abdominal Exam: Normal Bowel Sounds, Soft Additional comments: NT, ND - Extremities Exam Extremities exam: Positive for: normal inspection - Neurological Exam Neurological exam: Alert Additional comments: awake and follows commands right hemiparesis Laboratory Results - last 72 hr 08/14/17 08/14/17 08/14/17 11:37 16:59 20:50 WBC RBC Hgb Hct MCV MCH MCHC RDW Plt Count MPV Neut % (Auto) Lymph % (Auto) [place] % (Auto) Eos % (Auto) Baso % (Auto) Neut # (Auto) Lymph # (Auto) [place] # (Auto) Eos # (Auto) Baso # (Auto) pCO2 pO2 HCO3 ABG pH ABG Total CO2 ABG O2 Saturation ABG O2 Content ABG Base Excess ABG Hemoglobin ABG Carboxyhemoglobin POC ABG HHb (Measured) ABG Methemoglobin ABG O2 Capacity Haseeb Test A-a O2 Difference Hgb O2 Saturation Mechanical Rate FiO2 Tidal Volume PEEP Sodium Potassium Chloride Carbon Dioxide Anion Gap BUN Creatinine Est GFR ( Amer) Est GFR (Non-Af Amer) POC Glucose (mg/dL) 122 H 127 H 124 H Random Glucose Calcium Total Bilirubin AST ALT Alkaline Phosphatase Total Protein Albumin Globulin Albumin/Globulin Ratio Prolactin 08/15/17 08/15/17 08/15/17 04:35 04:35 05:17 WBC 11.4 H RBC 2.90 L Hgb 8.8 L D Hct 26.4 L MCV 90.9 MCH 30.5 MCHC 33.5 RDW 14.5 Plt Count 281 MPV 9.1 Neut % (Auto) 77.7 H Lymph % (Auto) 8.8 L [place] % (Auto) 12.7 H Eos % (Auto) 0.5 Baso % (Auto) 0.3 Neut # (Auto) 8.9 H Lymph # (Auto) 1.0 [place] # (Auto) 1.5 H Eos # (Auto) 0.1 Baso # (Auto) 0.0 pCO2 39 pO2 152 H HCO3 21.1 ABG pH 7.33 L ABG Total CO2 21.8 L ABG O2 Saturation 100.0 H ABG O2 Content 16.7 ABG Base Excess -4.9 L ABG Hemoglobin 12.0 ABG Carboxyhemoglobin 1.5 POC ABG HHb (Measured) 0.0 ABG Methemoglobin 1.4 ABG O2 Capacity 16.7 Haseeb Test Yes A-a O2 Difference 84.0 Hgb O2 Saturation 97.0 Mechanical Rate 8 FiO2 40.0 Tidal Volume 450 PEEP 5 Sodium 140 Potassium 3.7 Chloride 110 H Carbon Dioxide 21 L Anion Gap 13 BUN 17 Creatinine 1.8 H Est GFR ( Amer) 44 Est GFR (Non-Af Amer) 36 POC Glucose (mg/dL) Random Glucose 127 H Calcium 7.7 L Total Bilirubin 0.7 AST 24 ALT 24 Alkaline Phosphatase 88 Total Protein 5.6 L Albumin 2.7 L Globulin 2.9 Albumin/Globulin Ratio 0.9 L Prolactin 08/15/17 08/15/17 08/15/17 06:22 10:35 11:25 WBC 12.1 H RBC 3.19 L Hgb 9.6 L Hct 29.0 L MCV 90.8 MCH 30.1 MCHC 33.2 RDW 14.4 Plt Count 288 MPV Neut % (Auto) Lymph % (Auto) [place] % (Auto) Eos % (Auto) Baso % (Auto) Neut # (Auto) Lymph # (Auto) [place] # (Auto) Eos # (Auto) Baso # (Auto) pCO2 pO2 HCO3 ABG pH ABG Total CO2 ABG O2 Saturation ABG O2 Content ABG Base Excess ABG Hemoglobin ABG Carboxyhemoglobin POC ABG HHb (Measured) ABG Methemoglobin ABG O2 Capacity Haseeb Test A-a O2 Difference Hgb O2 Saturation Mechanical Rate FiO2 Tidal Volume PEEP Sodium Potassium Chloride Carbon Dioxide Anion Gap BUN Creatinine Est GFR ( Amer) Est GFR (Non-Af Amer) POC Glucose (mg/dL) 124 H 145 H Random Glucose Calcium Total Bilirubin AST ALT Alkaline Phosphatase Total Protein Albumin Globulin Albumin/Globulin Ratio Prolactin 08/15/17 08/15/17 08/16/17 16:37 20:51 04:20 WBC 11.3 H RBC 3.03 L Hgb 9.2 L Hct 28.0 L MCV 92.3 MCH 30.3 MCHC 32.8 L RDW 13.8 Plt Count 289 MPV 9.2 Neut % (Auto) 74.7 Lymph % (Auto) 8.6 L [place] % (Auto) 13.4 H Eos % (Auto) 2.8 Baso % (Auto) 0.5 Neut # (Auto) 8.4 H Lymph # (Auto) 1.0 [place] # (Auto) 1.5 H Eos # (Auto) 0.3 Baso # (Auto) 0.1 pCO2 pO2 HCO3 ABG pH ABG Total CO2 ABG O2 Saturation ABG O2 Content ABG Base Excess ABG Hemoglobin ABG Carboxyhemoglobin POC ABG HHb (Measured) ABG Methemoglobin ABG O2 Capacity Haseeb Test A-a O2 Difference Hgb O2 Saturation Mechanical Rate FiO2 Tidal Volume PEEP Sodium Potassium Chloride Carbon Dioxide Anion Gap BUN Creatinine Est GFR ( Amer) Est GFR (Non-Af Amer) POC Glucose (mg/dL) 185 H 175 H Random Glucose Calcium Total Bilirubin AST ALT Alkaline Phosphatase Total Protein Albumin Globulin Albumin/Globulin Ratio Prolactin 08/16/17 08/16/17 08/16/17 04:20 05:54 10:59 WBC RBC Hgb Hct MCV MCH MCHC RDW Plt Count MPV Neut % (Auto) Lymph % (Auto) [place] % (Auto) Eos % (Auto) Baso % (Auto) Neut # (Auto) Lymph # (Auto) [place] # (Auto) Eos # (Auto) Baso # (Auto) pCO2 pO2 HCO3 ABG pH ABG Total CO2 ABG O2 Saturation ABG O2 Content ABG Base Excess ABG Hemoglobin ABG Carboxyhemoglobin POC ABG HHb (Measured) ABG Methemoglobin ABG O2 Capacity Haseeb Test A-a O2 Difference Hgb O2 Saturation Mechanical Rate FiO2 Tidal Volume PEEP Sodium 141 Potassium 3.8 Chloride 109 H Carbon Dioxide 23 Anion Gap 13 BUN 19 Creatinine 1.8 H Est GFR ( Amer) 44 Est GFR (Non-Af Amer) 36 POC Glucose (mg/dL) 141 H Random Glucose 138 H Calcium 7.8 L Total Bilirubin AST ALT Alkaline Phosphatase Total Protein Albumin Globulin Albumin/Globulin Ratio Prolactin 8.3 08/16/17 08/16/17 08/16/17 11:07 15:45 21:14 WBC RBC Hgb Hct MCV MCH MCHC RDW Plt Count MPV Neut % (Auto) Lymph % (Auto) [place] % (Auto) Eos % (Auto) Baso % (Auto) Neut # (Auto) Lymph # (Auto) [place] # (Auto) Eos # (Auto) Baso # (Auto) pCO2 pO2 HCO3 ABG pH ABG Total CO2 ABG O2 Saturation ABG O2 Content ABG Base Excess ABG Hemoglobin ABG Carboxyhemoglobin POC ABG HHb (Measured) ABG Methemoglobin ABG O2 Capacity Haseeb Test A-a O2 Difference Hgb O2 Saturation Mechanical Rate FiO2 Tidal Volume PEEP Sodium Potassium Chloride Carbon Dioxide Anion Gap BUN Creatinine Est GFR ( Amer) Est GFR (Non-Af Amer) POC Glucose (mg/dL) 203 H 133 H 176 H Random Glucose Calcium Total Bilirubin AST ALT Alkaline Phosphatase Total Protein Albumin Globulin Albumin/Globulin Ratio Prolactin 08/17/17 08/17/17 08/17/17 05:17 05:17 05:17 WBC 8.6 RBC 3.07 L Hgb 9.3 L Hct 27.9 L MCV 90.8 MCH 30.4 MCHC 33.5 RDW 14.1 Plt Count 294 MPV 9.0 Neut % (Auto) 69.3 Lymph % (Auto) 10.8 L [place] % (Auto) 13.1 H Eos % (Auto) 6.3 H Baso % (Auto) 0.5 Neut # (Auto) 5.9 Lymph # (Auto) 0.9 L [place] # (Auto) 1.1 H Eos # (Auto) 0.5 Baso # (Auto) 0.0 pCO2 pO2 HCO3 ABG pH ABG Total CO2 ABG O2 Saturation ABG O2 Content ABG Base Excess ABG Hemoglobin ABG Carboxyhemoglobin POC ABG HHb (Measured) ABG Methemoglobin ABG O2 Capacity Haseeb Test A-a O2 Difference Hgb O2 Saturation Mechanical Rate FiO2 Tidal Volume PEEP Sodium 145 Potassium 3.8 Chloride 108 H Carbon Dioxide 27 Anion Gap 14 BUN 20 Creatinine 1.9 H Est GFR ( Amer) 41 Est GFR (Non-Af Amer) 34 POC Glucose (mg/dL) 128 H Random Glucose 134 H Calcium 8.1 L Total Bilirubin AST ALT Alkaline Phosphatase Total Protein Albumin Globulin Albumin/Globulin Ratio Prolactin 08/17/17 08/17/17 07:29 11:16 WBC RBC Hgb Hct MCV MCH MCHC RDW Plt Count MPV Neut % (Auto) Lymph % (Auto) [place] % (Auto) Eos % (Auto) Baso % (Auto) Neut # (Auto) Lymph # (Auto) [place] # (Auto) Eos # (Auto) Baso # (Auto) pCO2 pO2 HCO3 ABG pH ABG Total CO2 ABG O2 Saturation ABG O2 Content ABG Base Excess ABG Hemoglobin ABG Carboxyhemoglobin POC ABG HHb (Measured) ABG Methemoglobin ABG O2 Capacity Haseeb Test A-a O2 Difference Hgb O2 Saturation Mechanical Rate FiO2 Tidal Volume PEEP Sodium Potassium Chloride Carbon Dioxide Anion Gap BUN Creatinine Est GFR ( Amer) Est GFR (Non-Af Amer) POC Glucose (mg/dL) 141 H 178 H Random Glucose Calcium Total Bilirubin AST ALT Alkaline Phosphatase Total Protein Albumin Globulin Albumin/Globulin Ratio Prolactin Microbiology 08/14/17 19:20 Trachasp Gram Stain - Final 08/14/17 19:20 Trachasp Sputum Culture - Final Serratia Marcescens 08/14/17 21:35 Blood Blood Culture - Preliminary NO GROWTH AFTER 48 HOURS 08/14/17 21:00 Blood Blood Culture - Preliminary NO GROWTH AFTER 48 HOURS 08/13/17 05:04 Naris MRSA Culture (Admit) - Final MRSA NOT DETECTED Accession No. : [id number] Patient Name / ID : MIKE CASTANEDA / [id number] Exam Date : 08/17/2017 08:17:40 ( Approved ) Study Comment : Sex / Age : M / 82Y Creator : Rishi Law MD Dictator : Rishi Law MD Heating Operators Engineer : Financial Planner : Rishi Law MD Approver2 : Report Date : 08/17/2017 09:56:28 My Comment : PROCEDURE: CHEST RADIOGRAPH, 1 VIEW HISTORY: SOB COMPARISON: Chest radiograph dated 08/15/2017 FINDINGS: LUNGS: Stable pulmonary vascular congestion and bibasilar atelectasis. Continued improvement of right upper lobe infiltrate. PLEURA: Small left pleural effusion. No appreciable pneumothorax. CARDIOVASCULAR: Normal. OSSEOUS STRUCTURES: No significant abnormalities. VISUALIZED UPPER ABDOMEN: Left upper quadrant surgical clips redemonstrated. OTHER FINDINGS: Removal of enteric tube. IMPRESSION: Continued improvement of right upper lobe infiltrate. Grossly stable small left pleural effusion. Assessment and Plan (1) Ischemic stroke Status: Acute (2) Respiratory distress Status: Acute (3) COPD (chronic obstructive pulmonary disease) Status: Chronic (4) DM2 (diabetes mellitus, type 2) Status: Acute - Assessment and Plan (Free Text) Assessment: A/P- 82 year old male with PMH of CHF, DM II, HTN admitted with TIA work up and found to have CVA and s/p [employer] for aspiration and hypoxeia and s/p intubation. extubated 3 days ago. clinically improved. remains afebrile leukocytosis has resolved. blood cx- neg x 2 trach asp cx- reported today serratia marsecens sensitive to ertapenem Plan- has completed 4 days of IV zosyn. eventhough clinically much improved in light of the trach asp cx result advise to d/c zosyna d start ertapenem once a day for few days. Monitor aspiration precautions. BP management as per ICU and primary team. ICU time spent 40 minutes.
--- NOTE | 2017-08-17 10:59 | CP.PCM.PN ---
Subjective - Date & Time of Evaluation Date of Evaluation: 08/17/17 Time of Evaluation: 10:59 - Subjective Subjective: awake and alert no chest pains/sob Objective - Vital Signs/Intake and Output Vital Signs (last 24 hours): Temp Pulse Resp BP Pulse Ox 99.4 F 63 21 184/70 H 100 08/17/17 07:00 08/17/17 09:00 08/17/17 09:00 08/17/17 09:00 08/17/17 09:00 Intake and Output: 08/17/17 08/17/17 06:59 18:59 Intake Total 100 310 Output Total 700 Balance -600 310 - Medications Medications: Current Medications Albuterol Sulfate (Albuterol 0.083% Inhal Bere (2.5 Mg/3 Ml) Ud) 2.5 mg IH Q6 PRN PRN Reason: Shortness of Breath Albuterol/Ipratropium (Duoneb 3 Mg/0.5 Mg (3 Ml) Ud) 3 ml INH RQID [facility] Last Admin: 08/17/17 07:24 Dose: 3 ml Aspirin (Aspirin Chewable) 81 mg PO DAILY [facility] Last Admin: 08/17/17 08:28 Dose: 81 mg Atorvastatin Calcium (Lipitor) 40 mg PO DAILY [facility] Last Admin: 08/17/17 08:27 Dose: 40 mg Carvedilol (Coreg) 12.5 mg PO Q12 [facility] Last Admin: 08/17/17 08:27 Dose: 12.5 mg Cholecalciferol (Vitamin D) 2,000 intlu PO DAILY [facility] Last Admin: 08/13/17 15:32 Dose: 2,000 intlu Clopidogrel Bisulfate (Plavix) 75 mg PO DAILY [facility] Last Admin: 08/17/17 08:28 Dose: 75 mg Enoxaparin Sodium (Lovenox) 30 mg SC DAILY [facility] PRN Reason: Protocol Last Admin: 08/17/17 08:28 Dose: 30 mg Ferrous Sulfate (Feosol) 325 mg PO TID [facility] Last Admin: 08/13/17 18:03 Dose: 325 mg Furosemide (Lasix) 80 mg PO DAILY [facility] Last Admin: 08/13/17 09:42 Dose: Not Given Piperacillin Sod/Tazobactam (Sod 2.25 gm/ Sodium Chloride) 100 mls @ 100 mls/ hr IVPB Q8 [facility] PRN Reason: Protocol Last Admin: 08/17/17 08:29 Dose: 100 mls/hr Insulin Human Lispro (Humalog) 20 units SC BID [facility] Last Admin: 08/13/17 17:30 Dose: Not Given Insulin Human Lispro (Humalog) 0 units SC ACCU-CHECK [facility] PRN Reason: Protocol Last Admin: 08/17/17 07:32 Dose: Not Given Labetalol HCl (Trandate) 20 mg IVP Q4H PRN PRN Reason: MAP>120 Last Admin: 08/17/17 06:51 Dose: 20 mg Latanoprost (Xalatan Opht) 1 drop OU HS [facility] Last Admin: 08/15/17 21:36 Dose: 1 drop Lisinopril (Zestril) 20 mg PO DAILY [facility] Last Admin: 08/17/17 08:29 Dose: 20 mg Multivitamins/Minerals (Therapeutic-M Tab) 1 tab PO DAILY [facility] Last Admin: 08/13/17 08:26 Dose: 1 tab Ondansetron HCl (Zofran Inj) 4 mg IVP Q6 PRN PRN Reason: Nausea/Vomiting Last Admin: 08/14/17 13:16 Dose: 4 mg Pantoprazole Sodium (Protonix Inj) 40 mg IVP DAILY [facility] Last Admin: 08/17/17 08:28 Dose: 40 mg Fluticasone/Salmeterol (Advair Diskus 250/50) 1 puff IH Q12 [facility] Last Admin: 08/16/17 08:06 Dose: 1 puff - Labs Labs: 08/17/17 05:17 08/17/17 05:17 PT 11.8 Seconds (9.8-13.1) 08/12/17 14:35 INR 1.1 (0.9-1.2) 08/12/17 14:35 APTT 32.3 Seconds (25.6-37.1) 08/12/17 14:35 - Constitutional Appears: Chronically Ill - Head Exam Head Exam: ATRAUMATIC, NORMAL INSPECTION, NORMOCEPHALIC - Eye Exam Eye Exam: EOMI, Normal appearance, PERRL Pupil Exam: NORMAL ACCOMODATION, PERRL - ENT Exam ENT Exam: Mucous Membranes Moist, Normal Exam - Neck Exam Neck Exam: Full ROM, Normal Inspection. absent: Lymphadenopathy - Respiratory Exam Respiratory Exam: Clear to Ausculation Bilateral, NORMAL BREATHING PATTERN - Cardiovascular Exam Cardiovascular Exam: REGULAR RHYTHM, +S1, +S2. absent: Murmur - GI/Abdominal Exam GI & Abdominal Exam: Soft, Normal Bowel Sounds. absent: Tenderness - Rectal Exam Rectal Exam: NORMAL INSPECTION - Extremities Exam Extremities Exam: Full ROM, Normal Capillary Refill, Normal Inspection. absent : Joint Swelling, Pedal Edema - Back Exam Back Exam: NORMAL INSPECTION - Neurological Exam Neurological Exam: Alert, Awake, CN II-XII Intact, Normal Gait, Oriented x3 Additional comments: r hemipareses - Psychiatric Exam Psychiatric exam: Normal Affect, Normal Mood - Skin Skin Exam: Dry, Intact, Normal Color, Warm Assessment and Plan - Assessment and Plan (Free Text) Assessment: respiratory failure-resolved cva Plan: no further pulmonary intervention for now will sign off case and see again at your request
--- NOTE | 2017-08-17 17:53 | CP.PCM.PN ---
Subjective - Date & Time of Evaluation Date of Evaluation: 08/17/17 Time of Evaluation: 07:30 - Subjective Subjective: 82M seen and examined at bedside with attending. Patient reports feeling better and says he is eating and drinking well without choking. He reports no recent BMs but denies any dyspnea, chest pain/ palpitations, dysuria, or abdominal pain. Objective - Vital Signs/Intake and Output Vital Signs (last 24 hours): Temp Pulse Resp BP Pulse Ox 37.1 C 74 20 166/57 H 98 08/17/17 17:46 08/17/17 17:46 08/17/17 17:46 08/17/17 17:46 08/17/17 17:46 Intake and Output: 08/17/17 08/17/17 06:59 18:59 Intake Total 100 770 Output Total 700 675 Balance -600 95 - Medications Medications: Current Medications Albuterol Sulfate (Albuterol 0.083% Inhal Bere (2.5 Mg/3 Ml) Ud) 2.5 mg IH Q6 PRN PRN Reason: Shortness of Breath Albuterol/Ipratropium (Duoneb 3 Mg/0.5 Mg (3 Ml) Ud) 3 ml INH RQID [facility] Last Admin: 08/17/17 15:03 Dose: 3 ml Amlodipine Besylate (Norvasc) 5 mg PO DAILY [facility] Last Admin: 08/17/17 13:16 Dose: 5 mg Aspirin (Aspirin Chewable) 81 mg PO DAILY [facility] Last Admin: 08/17/17 08:28 Dose: 81 mg Atorvastatin Calcium (Lipitor) 40 mg PO DAILY [facility] Last Admin: 08/17/17 08:27 Dose: 40 mg Carvedilol (Coreg) 12.5 mg PO Q12 [facility] Last Admin: 08/17/17 08:27 Dose: 12.5 mg Cholecalciferol (Vitamin D) 2,000 intlu PO DAILY [facility] Last Admin: 08/13/17 15:32 Dose: 2,000 intlu Clopidogrel Bisulfate (Plavix) 75 mg PO DAILY [facility] Last Admin: 08/17/17 08:28 Dose: 75 mg Ferrous Sulfate (Feosol) 325 mg PO TID [facility] Last Admin: 08/13/17 18:03 Dose: 325 mg Furosemide (Lasix) 80 mg PO DAILY [facility] Last Admin: 08/13/17 09:42 Dose: Not Given Heparin Sodium (Porcine) (Heparin) 5,000 units SC Q8 [facility] PRN Reason: Protocol Last Admin: 08/17/17 17:25 Dose: 5,000 units Ertapenem 1 gm/ Sodium (Chloride) 100 mls @ 100 mls/hr IVPB DAILY [facility] PRN Reason: Protocol Last Admin: 08/17/17 13:17 Dose: 100 mls/hr Insulin Human Lispro (Humalog) 20 units SC BID [facility] Last Admin: 08/13/17 17:30 Dose: Not Given Insulin Human Lispro (Humalog) 0 units SC ACCU-CHECK [facility] PRN Reason: Protocol Last Admin: 08/17/17 17:26 Dose: 2 units Latanoprost (Xalatan Opht) 1 drop OU HS [facility] Last Admin: 08/15/17 21:36 Dose: 1 drop Lisinopril (Zestril) 20 mg PO DAILY [facility] Last Admin: 08/17/17 08:29 Dose: 20 mg Multivitamins/Minerals (Therapeutic-M Tab) 1 tab PO DAILY [facility] Last Admin: 08/13/17 08:26 Dose: 1 tab Ondansetron HCl (Zofran Inj) 4 mg IVP Q6 PRN PRN Reason: Nausea/Vomiting Last Admin: 08/14/17 13:16 Dose: 4 mg Pantoprazole Sodium (Protonix Inj) 40 mg IVP DAILY [facility] Last Admin: 08/17/17 08:28 Dose: 40 mg Fluticasone/Salmeterol (Advair Diskus 250/50) 1 puff IH Q12 [facility] Last Admin: 08/16/17 08:06 Dose: 1 puff - Labs Labs: 08/17/17 05:17 08/17/17 05:17 PT 11.8 Seconds (9.8-13.1) 08/12/17 14:35 INR 1.1 (0.9-1.2) 08/12/17 14:35 APTT 32.3 Seconds (25.6-37.1) 08/12/17 14:35 - Constitutional Appears: Well, Non-toxic, Older Than Stated Age, Chronically Ill - ENT Exam ENT Exam: Mucous Membranes Moist, Normal Exam - Neck Exam Neck Exam: Full ROM - Respiratory Exam Respiratory Exam: Clear to Ausculation Bilateral, NORMAL BREATHING PATTERN - Cardiovascular Exam Cardiovascular Exam: REGULAR RHYTHM, +S1, +S2 - GI/Abdominal Exam GI & Abdominal Exam: Soft, Normal Bowel Sounds - Extremities Exam Extremities Exam: absent: Full ROM (RIGHT hemiplegia) - Neurological Exam Neurological Exam: Alert, Awake. absent: Normal Gait - Psychiatric Exam Psychiatric exam: Normal Affect, Normal Mood - Skin Skin Exam: Dry, Warm Assessment and Plan - Assessment and Plan (Free Text) Assessment: 82M recovering from CVA with residual right-sided deficits and aspiration. CXR shows continued improvement of infiltrate, Cr increasing. - Modified Dysphagia diet - DM: Accu-check, resume insulin, hypoglycemic bundle - HTN: not well-controlled permissive timeframe passed so will implement improved control, added Norvasc 5mg, d/c'd labetalol - Neurology Consult: f/u recs - Pulmonary Consult: Signed Off - ID Consult: Sensitivities changed Zosyn to Ertepenem - Aspiration Precautions - c/w PT/OT - Anemia: Resume Feosol - Inc Cr: Lovenox changed to SC Heparin, BMP in AM
[2017-08-17] MEDS ORDERED: Dextrose 50% SYRINGE Inj (50 ml) IV PRN (18:01)
[2017-08-17] MEDS ORDERED: Glucagon Recombinant 1 mg Inj IM PRN (18:01)
[2017-08-17] MEDS: Fluticasone-Salmeterol 250-50mcg Diskus IH SCH (21:09)
[2017-08-17] MEDS: Latanoprost 0.005% Opht SOUTION OU SCH (21:09)
[2017-08-18] MEDS: Insulin Lispro (humaLOG) 100 Units/ml Inj SC SCH ×6 (06:55→17:29)
--- NOTE | 2017-08-18 07:51 | CP.PCM.PN ---
Subjective - Date & Time of Evaluation Date of Evaluation: 08/18/17 Time of Evaluation: 07:51 - Subjective Subjective: Ms. Ibarra was seen and examined at the bedside.He is awake, alert, able to mumble few words and participates during assessment. He mostly uses non-verbal cues such as nodding and shaking his head. He denies any headache, dizziness, lightheadedness, nausea, or vomiting. He is able to follow simple commands with right upper extremity flaccidity and weakness of the right lower extremity . There was no untoward events overnight. Objective - Vital Signs/Intake and Output Vital Signs (last 24 hours): Temp Pulse Resp BP Pulse Ox 98.1 F 79 20 190/68 H 96 08/18/17 04:52 08/18/17 04:52 08/18/17 04:52 08/18/17 04:52 08/18/17 04:52 - Medications Medications: Current Medications Albuterol Sulfate (Albuterol 0.083% Inhal Bere (2.5 Mg/3 Ml) Ud) 2.5 mg IH Q6 PRN PRN Reason: Shortness of Breath Albuterol/Ipratropium (Duoneb 3 Mg/0.5 Mg (3 Ml) Ud) 3 ml INH RQID [facility] Last Admin: 08/17/17 19:14 Dose: 3 ml Amlodipine Besylate (Norvasc) 5 mg PO DAILY [facility] Last Admin: 08/17/17 13:16 Dose: 5 mg Aspirin (Aspirin Chewable) 81 mg PO DAILY [facility] Last Admin: 08/17/17 08:28 Dose: 81 mg Atorvastatin Calcium (Lipitor) 40 mg PO DAILY [facility] Last Admin: 08/17/17 08:27 Dose: 40 mg Carvedilol (Coreg) 12.5 mg PO Q12 [facility] Last Admin: 08/17/17 21:07 Dose: 12.5 mg Cholecalciferol (Vitamin D) 2,000 intlu PO DAILY [facility] Last Admin: 08/13/17 15:32 Dose: 2,000 intlu Clopidogrel Bisulfate (Plavix) 75 mg PO DAILY [facility] Last Admin: 08/17/17 08:28 Dose: 75 mg Dextrose (Dextrose 50% Inj) 0 ml IV STAT PRN; Protocol PRN Reason: Hypoglycemia Protocol Dextrose (Glutose 15) 0 gm PO ONCE PRN; Protocol PRN Reason: Hypoglycemia Protocol Ferrous Sulfate (Feosol) 325 mg PO TID [facility] Last Admin: 08/13/17 18:03 Dose: 325 mg Furosemide (Lasix) 80 mg PO DAILY [facility] Last Admin: 08/13/17 09:42 Dose: Not Given Glucagon (Glucagen Diagnostic Kit) 0 mg IM STAT PRN; Protocol PRN Reason: Hypoglycemia Protocol Heparin Sodium (Porcine) (Heparin) 5,000 units SC Q8 [facility] PRN Reason: Protocol Last Admin: 08/18/17 00:37 Dose: 5,000 units Ertapenem 1 gm/ Sodium (Chloride) 100 mls @ 100 mls/hr IVPB DAILY [facility] PRN Reason: Protocol Last Admin: 08/17/17 13:17 Dose: 100 mls/hr Insulin Human Lispro (Humalog) 20 units SC BID [facility] Last Admin: 08/13/17 17:30 Dose: Not Given Insulin Human Lispro (Humalog) 0 units SC ACCU-CHECK [facility] PRN Reason: Protocol Last Admin: 08/18/17 06:56 Dose: Not Given Latanoprost (Xalatan Opht) 1 drop OU HS [facility] Last Admin: 08/17/17 21:09 Dose: 1 drop Lisinopril (Zestril) 20 mg PO DAILY [facility] Last Admin: 08/17/17 08:29 Dose: 20 mg Multivitamins/Minerals (Therapeutic-M Tab) 1 tab PO DAILY [facility] Last Admin: 08/13/17 08:26 Dose: 1 tab Ondansetron HCl (Zofran Inj) 4 mg IVP Q6 PRN PRN Reason: Nausea/Vomiting Last Admin: 08/14/17 13:16 Dose: 4 mg Pantoprazole Sodium (Protonix Inj) 40 mg IVP DAILY [facility] Last Admin: 08/17/17 08:28 Dose: 40 mg Fluticasone/Salmeterol (Advair Diskus 250/50) 1 puff IH Q12 [facility] Last Admin: 08/17/17 21:09 Dose: 1 puff - Labs Labs: 08/17/17 05:17 08/17/17 05:17 PT 11.8 Seconds (9.8-13.1) 08/12/17 14:35 INR 1.1 (0.9-1.2) 08/12/17 14:35 APTT 32.3 Seconds (25.6-37.1) 08/12/17 14:35 - Constitutional Appears: No Acute Distress - Head Exam Head Exam: NORMAL INSPECTION - Neurological Exam Neurological Exam: Awake Neuro motor strength exam: Left Upper Extremity: 5, Right Upper Extremity: 0, Left Lower Extremity: 4, Right Lower Extremity: 2/1 Additional comments: Neurological unchanged from previous examination. Assessment and Plan (1) Ischemic stroke Assessment & Plan: Case discussed with Dr. Thomas, continue all current medical, physical, occupational, and speech therapies. Recommend encourage increase PO intake, acute rehab for discharge planning, blood pressure and glycemic control. If the patient further declines with mental status, to repeat CT scan of the head without contrast. Status: Acute
[2017-08-18] MEDS: Albuterol-Ipratrop 3 mg / 0.5 (3 ml) UD INH SCH ×4 (07:57→19:08)
[2017-08-18 08:01] LABS: CALCIUM 8.3 mg/dL (8.4-10.2)
[2017-08-18] MEDS: Fluticasone-Salmeterol 250-50mcg Diskus IH SCH ×2 (08:31→21:07)
--- NOTE | 2017-08-18 09:00 | CP.PCM.PN ---
Subjective - Date & Time of Evaluation Date of Evaluation: 08/18/17 Time of Evaluation: 08:59 - Subjective Subjective: No acute overnight events. Pt doing well this AM. Aphasia with facial droop. Awake and alert. Denies chest pain, dyspnea, headache, blurry vision. Objective - Vital Signs/Intake and Output Vital Signs (last 24 hours): Temp Pulse Resp BP Pulse Ox 98.8 F 85 20 204/80 H 99 08/18/17 08:00 08/18/17 08:25 08/18/17 08:00 08/18/17 08:25 08/18/17 08:00 - Medications Medications: Current Medications Albuterol Sulfate (Albuterol 0.083% Inhal Bere (2.5 Mg/3 Ml) Ud) 2.5 mg IH Q6 PRN PRN Reason: Shortness of Breath Albuterol/Ipratropium (Duoneb 3 Mg/0.5 Mg (3 Ml) Ud) 3 ml INH RQID [facility] Last Admin: 08/18/17 07:57 Dose: 3 ml Amlodipine Besylate (Norvasc) 10 mg PO DAILY [facility] Aspirin (Aspirin Chewable) 81 mg PO DAILY [facility] Last Admin: 08/18/17 08:24 Dose: 81 mg Atorvastatin Calcium (Lipitor) 40 mg PO DAILY [facility] Last Admin: 08/18/17 08:27 Dose: 40 mg Carvedilol (Coreg) 12.5 mg PO Q12 [facility] Last Admin: 08/18/17 08:24 Dose: 12.5 mg Cholecalciferol (Vitamin D) 2,000 intlu PO DAILY [facility] Last Admin: 08/13/17 15:32 Dose: 2,000 intlu Clopidogrel Bisulfate (Plavix) 75 mg PO DAILY [facility] Last Admin: 08/18/17 08:25 Dose: 75 mg Dextrose (Dextrose 50% Inj) 0 ml IV STAT PRN; Protocol PRN Reason: Hypoglycemia Protocol Dextrose (Glutose 15) 0 gm PO ONCE PRN; Protocol PRN Reason: Hypoglycemia Protocol Ferrous Sulfate (Feosol) 325 mg PO TID [facility] Last Admin: 08/18/17 08:28 Dose: 325 mg Furosemide (Lasix) 80 mg PO DAILY [facility] Last Admin: 08/13/17 09:42 Dose: Not Given Glucagon (Glucagen Diagnostic Kit) 0 mg IM STAT PRN; Protocol PRN Reason: Hypoglycemia Protocol Heparin Sodium (Porcine) (Heparin) 5,000 units SC Q8 [facility] PRN Reason: Protocol Last Admin: 08/18/17 08:30 Dose: 5,000 units Ertapenem 1 gm/ Sodium (Chloride) 100 mls @ 100 mls/hr IVPB DAILY [facility] PRN Reason: Protocol Last Admin: 08/18/17 08:32 Dose: 100 mls/hr Insulin Human Lispro (Humalog) 20 units SC BID [facility] Last Admin: 08/18/17 08:29 Dose: 20 units Insulin Human Lispro (Humalog) 0 units SC ACCU-CHECK [facility] PRN Reason: Protocol Last Admin: 08/18/17 06:56 Dose: Not Given Latanoprost (Xalatan Opht) 1 drop OU HS [facility] Last Admin: 08/17/17 21:09 Dose: 1 drop Lisinopril (Zestril) 20 mg PO DAILY [facility] Last Admin: 08/18/17 08:24 Dose: 20 mg Multivitamins/Minerals (Therapeutic-M Tab) 1 tab PO DAILY [facility] Last Admin: 08/13/17 08:26 Dose: 1 tab Ondansetron HCl (Zofran Inj) 4 mg IVP Q6 PRN PRN Reason: Nausea/Vomiting Last Admin: 08/14/17 13:16 Dose: 4 mg Pantoprazole Sodium (Protonix Inj) 40 mg IVP DAILY [facility] Last Admin: 08/18/17 08:28 Dose: 40 mg Fluticasone/Salmeterol (Advair Diskus 250/50) 1 puff IH Q12 [facility] Last Admin: 08/18/17 08:31 Dose: 1 puff Tamsulosin HCl (Flomax) 0.4 mg PO DAILY [facility] - Labs Labs: 08/17/17 05:17 08/18/17 06:20 PT 11.8 Seconds (9.8-13.1) 08/12/17 14:35 INR 1.1 (0.9-1.2) 08/12/17 14:35 APTT 32.3 Seconds (25.6-37.1) 08/12/17 14:35 - Constitutional Appears: No Acute Distress, Other (2L O2 NC, R sided facial droop ) - Head Exam Head Exam: ATRAUMATIC - Eye Exam Eye Exam: EOMI (Baseline L sided blindness) - ENT Exam ENT Exam: Mucous Membranes Moist - Respiratory Exam Respiratory Exam: Clear to Ausculation Bilateral, Wheezes (faint ), NORMAL BREATHING PATTERN - Cardiovascular Exam Cardiovascular Exam: REGULAR RHYTHM, +S1, +S2 - GI/Abdominal Exam GI & Abdominal Exam: Soft, Normal Bowel Sounds. absent: Guarding, Tenderness - Exam Exam: absent: Scrotal Swelling Additional comments: Johnson in place, draining orange/yellow urine - Extremities Exam Extremities Exam: absent: Calf Tenderness, Pedal Edema Additional comments: Moving Left upper and lower extremity No mobility in RUE, some movement of hand Moving both lower extremities L>R - Neurological Exam Neurological Exam: Alert, Awake - Skin Skin Exam: Dry, Intact, Normal Color Assessment and Plan - Assessment and Plan (Free Text) Assessment: Assessment/Plan: 82 YO male with PMHz of Diastolic HF, COPD, CAD s/p stent x 4, CKD, DM2 on insulin, HTN, HLD, Colon CA s/p surgery (1961), TIA/CVA (1988), left eye blindness/diabetic retinopathy admitted for acute stroke. Admission complicated by subsequent stroke, hypoxia requiring intubation, s/p extubation. Acute Stroke, L temporal/occipital junction (08/12) and acute infract L frontal lobe (08/13) -MRI head 08/12; acute stroke in region of the left temporal/occipital junction; no hemorrhage. -CTA head and neck 08/12: Occluded left ICA chronic, Mild proximal b/l vertebral artery atherosclerosis -EKG 08/12: Sinus bradycardia with occasional premature ventricular complexes, Left ventricular hypertrophy with repolarization abnormality -Repeat CT 08/13: acute infract left frontal lobe -Neuro on consult; change aspirin po to [place] until ogt/ NGT inserted, permissive HTN until 12 noon today, blood pressure and glycemic control. If the patient further declines with mental status, to repeat CT scan of the head without contrast. -Neuro on board; cont meds; Continue all current medical, PT/OT. Recommend starting with electrical stimulation of the right side. If the patient further declines with mental status, to repeat CT scan of the head without contrast. -passes swallow eval post extubation -c/w Aspirin and Plavix -PT/OT evaluation -modified dysphagia diet started Pneumonia, RUL -Chest x-ray 08/14/17; RUL infiltrate -likely aspiration pneumonia -finding not seen on chest xray 08/12 -remains afebrile, currently intubated -ID and pulmonary consulted -ID on board; Per culture susan, started on Ertapenem (D2) -s/p Zosyn (D4) HTN - Uncontrolled -C/w home meds, Lisinopril 10daily, Carvidilol 12.5 post intubation -will increase to 10mg Norvasc -will continue all held meds -renal ultrasounds as outpatient -Monitor BP closely Low vitamin D -Vit D level <12.8 -c/w 2000mg vit D daily CAD s/p stent x 4 -EKG: Sinus bradycardia with occasional premature ventricular complexes, Left ventricular hypertrophy with repolarization abnormality -echo normal LV, EF 55-60% -c/w Coreg, Statin, ASA and plavix History of Diastolic HF -Last ECHO from 11/2013 --> Normal LV syst function; Concentric LVH; Impaired Diastolic function -echo normal LV, EF 55-60% -hold Lasix 80mg PO daily for now due to elevated bun/cr -Continue Lipitor 40 mg, ASA 81mg -Out patient Cardiology: Dr. Carlos DM2 on insulin -C/w Home insulin -Correction scale -HBA1C 9.2 DVT PPX -c/w heparin
[2017-08-18] MEDS ORDERED: Potassium Chloride 20 mEq ER Tab PO SCH (10:30)
[2017-08-18] MEDS: Multivitamin With Minerals Tab PO SCH (11:21)
[2017-08-18] MEDS: Potassium Chloride 20 mEq ER Tab PO SCH (11:31)
[2017-08-18] MEDS: Latanoprost 0.005% Opht SOUTION OU SCH (21:08)
[2017-08-18] MEDS: Sodium Chloride 0.9% 500 ML IV SCH (22:58)
[2017-08-19] MEDS: Sodium Chloride 0.9% 500 ML IV SCH (00:21)
[2017-08-19 05:45] LABS: BASO # 0.1 K/uL (0.0-0.2); BASO % 0.9 % (0.0-2.0); EOS # 0.5 K/uL (0.0-0.7); EOS % 7.9 % (0.0-4.0); LYMPH % 15.1 % (20.0-40.0); MEAN CELL VOLUME 90.2 fl (80.0-94.0); MEAN CORPUSCULAR HEMOGLOBIN 30.8 pg (27.0-31.0); MEAN CORPUSCULAR HGB CONC 34.2 g/dL (33.0-37.0); MEAN PLATELET VOLUME 9.5 fl (7.2-11.7); MONO # 0.9 K/uL (0.0-0.8); MONO % 14.4 % (0.0-10.0); NEUT % 61.7 % (50.0-75.0); RBC 2.92 Mil/uL (4.40-5.90); RED CELL DISTRIBUTION WIDTH 14.2 % (11.5-14.5); WHITE BLOOD COUNT 6.6 K/uL (4.8-10.8)
[2017-08-19 05:50] LABS: CALCIUM 7.9 mg/dL (8.4-10.2)
[2017-08-19] MEDS: Albuterol-Ipratrop 3 mg / 0.5 (3 ml) UD INH SCH ×3 (07:39→15:26)
[2017-08-19] MEDS: Fluticasone-Salmeterol 250-50mcg Diskus IH SCH (08:32)
[2017-08-19] MEDS: Insulin Lispro (humaLOG) 100 Units/ml Inj SC SCH ×4 (08:37→16:59)
[2017-08-19] MEDS: Potassium Chloride 20 mEq ER Tab PO SCH (08:38)
[2017-08-19] MEDS: Multivitamin With Minerals Tab PO SCH (08:43)
--- NOTE | 2017-08-19 09:29 | CP.PCM.PN ---
Subjective - Date & Time of Evaluation Date of Evaluation: 08/19/17 Time of Evaluation: 09:29 - Subjective Subjective: Ms. Ibarra was seen and examined at the bedside.He is awake, alert, able to mumble few words and participates during assessment. He mostly uses non-verbal cues such as nodding and shaking his head. He denies any headache, dizziness, lightheadedness, nausea, or vomiting. He is able to follow simple commands with right upper extremity flaccidity and weakness of the right lower extremity . There was no untoward events overnight. Objective - Vital Signs/Intake and Output Vital Signs (last 24 hours): Temp Pulse Resp BP Pulse Ox 98.1 F 87 20 160/72 H 96 08/19/17 08:17 08/19/17 08:43 08/19/17 08:17 08/19/17 08:43 08/19/17 08:17 - Medications Medications: Current Medications Albuterol Sulfate (Albuterol 0.083% Inhal Bere (2.5 Mg/3 Ml) Ud) 2.5 mg IH Q6 PRN PRN Reason: Shortness of Breath Albuterol/Ipratropium (Duoneb 3 Mg/0.5 Mg (3 Ml) Ud) 3 ml INH RQID [facility] Last Admin: 08/19/17 07:39 Dose: 3 ml Amlodipine Besylate (Norvasc) 10 mg PO DAILY [facility] Last Admin: 08/19/17 08:39 Dose: 10 mg Aspirin (Aspirin Chewable) 81 mg PO DAILY [facility] Last Admin: 08/19/17 08:32 Dose: 81 mg Atorvastatin Calcium (Lipitor) 40 mg PO DAILY [facility] Last Admin: 08/19/17 08:39 Dose: 40 mg Carvedilol (Coreg) 12.5 mg PO Q12 [facility] Last Admin: 08/19/17 08:33 Dose: 12.5 mg Cholecalciferol (Vitamin D) 2,000 intlu PO DAILY [facility] Last Admin: 08/13/17 15:32 Dose: 2,000 intlu Clopidogrel Bisulfate (Plavix) 75 mg PO DAILY [facility] Last Admin: 08/19/17 08:40 Dose: 75 mg Dextrose (Dextrose 50% Inj) 0 ml IV STAT PRN; Protocol PRN Reason: Hypoglycemia Protocol Dextrose (Glutose 15) 0 gm PO ONCE PRN; Protocol PRN Reason: Hypoglycemia Protocol Ferrous Sulfate (Feosol) 325 mg PO TID [facility] Last Admin: 08/19/17 08:34 Dose: 325 mg Furosemide (Lasix) 80 mg PO DAILY [facility] Last Admin: 08/13/17 09:42 Dose: Not Given Glucagon (Glucagen Diagnostic Kit) 0 mg IM STAT PRN; Protocol PRN Reason: Hypoglycemia Protocol Heparin Sodium (Porcine) (Heparin) 5,000 units SC Q8 [facility] PRN Reason: Protocol Last Admin: 08/19/17 08:35 Dose: 5,000 units Ertapenem 1 gm/ Sodium (Chloride) 100 mls @ 100 mls/hr IVPB DAILY [facility] PRN Reason: Protocol Last Admin: 08/19/17 08:38 Dose: 100 mls/hr Insulin Human Lispro (Humalog) 20 units SC BID [facility] Last Admin: 08/19/17 08:56 Dose: Not Given Insulin Human Lispro (Humalog) 0 units SC ACCU-CHECK [facility] PRN Reason: Protocol Last Admin: 08/19/17 08:37 Dose: Not Given Latanoprost (Xalatan Opht) 1 drop OU HS [facility] Last Admin: 08/18/17 21:08 Dose: 1 drop Lisinopril (Zestril) 20 mg PO DAILY [facility] Last Admin: 08/19/17 08:43 Dose: 20 mg Multivitamins/Minerals (Therapeutic-M Tab) 1 tab PO DAILY [facility] Last Admin: 08/19/17 08:43 Dose: 1 tab Ondansetron HCl (Zofran Inj) 4 mg IVP Q6 PRN PRN Reason: Nausea/Vomiting Last Admin: 08/14/17 13:16 Dose: 4 mg Pantoprazole Sodium (Protonix Inj) 40 mg IVP DAILY [facility] Last Admin: 08/19/17 08:40 Dose: 40 mg Fluticasone/Salmeterol (Advair Diskus 250/50) 1 puff IH Q12 [facility] Last Admin: 08/19/17 08:32 Dose: 1 puff Tamsulosin HCl (Flomax) 0.4 mg PO DAILY [facility] Last Admin: 08/19/17 08:34 Dose: 0.4 mg - Labs Labs: 08/19/17 04:20 08/19/17 04:20 PT 11.8 Seconds (9.8-13.1) 08/12/17 14:35 INR 1.1 (0.9-1.2) 08/12/17 14:35 APTT 32.3 Seconds (25.6-37.1) 08/12/17 14:35 - Constitutional Appears: No Acute Distress - Head Exam Head Exam: NORMAL INSPECTION - Eye Exam Pupil Exam: Unequal Additional comments: right eye reactive- 3 mm and ledt eye 4 mm fixed non- reactive ( is it not new findings). - Neurological Exam Neurological Exam: Alert, Awake Neuro motor strength exam: Left Upper Extremity: 5, Right Upper Extremity: 2/1, Left Lower Extremity: 5, Right Lower Extremity: 3 Additional comments: neurological improved from previous examination, he is able to move his right lower extremity, participates during assessment. Assessment and Plan (1) Ischemic stroke Assessment & Plan: Case discussed with Dr. Vaughn, continue all current medical, physical,occupational , and speech therapies. Recommend electrical stimulation of the right upper and lower extremities, encourage increase PO intake, acute rehab for discharge planning, blood pressure and glycemic control. If the patient further declines with mental status, to repeat CT scan of the head without contrast. Status: Acute
--- NOTE | 2017-08-19 10:30 | CP.PCM.PN ---
Subjective - Date & Time of Evaluation Date of Evaluation: 08/19/17 Time of Evaluation: 10:30 - Subjective Subjective: Johnson was d/c yesterday, but pt was not able void by himself. Johnson was reinserted. No acute overnight events. Pt able to communicate by nodding his head. Awake, alert. Feeling well, denies chest pain, headache, blurry vision, n/v/d/c. Objective - Vital Signs/Intake and Output Vital Signs (last 24 hours): Temp Pulse Resp BP Pulse Ox 98.1 F 87 20 160/72 H 96 08/19/17 08:17 08/19/17 08:43 08/19/17 08:17 08/19/17 08:43 08/19/17 08:17 - Medications Medications: Current Medications Albuterol Sulfate (Albuterol 0.083% Inhal Bere (2.5 Mg/3 Ml) Ud) 2.5 mg IH Q6 PRN PRN Reason: Shortness of Breath Albuterol/Ipratropium (Duoneb 3 Mg/0.5 Mg (3 Ml) Ud) 3 ml INH RQID [facility] Last Admin: 08/19/17 07:39 Dose: 3 ml Amlodipine Besylate (Norvasc) 10 mg PO DAILY [facility] Last Admin: 08/19/17 08:39 Dose: 10 mg Aspirin (Aspirin Chewable) 81 mg PO DAILY [facility] Last Admin: 08/19/17 08:32 Dose: 81 mg Atorvastatin Calcium (Lipitor) 40 mg PO DAILY [facility] Last Admin: 08/19/17 08:39 Dose: 40 mg Carvedilol (Coreg) 12.5 mg PO Q12 [facility] Last Admin: 08/19/17 08:33 Dose: 12.5 mg Cholecalciferol (Vitamin D) 2,000 intlu PO DAILY [facility] Last Admin: 08/13/17 15:32 Dose: 2,000 intlu Clopidogrel Bisulfate (Plavix) 75 mg PO DAILY [facility] Last Admin: 08/19/17 08:40 Dose: 75 mg Dextrose (Dextrose 50% Inj) 0 ml IV STAT PRN; Protocol PRN Reason: Hypoglycemia Protocol Dextrose (Glutose 15) 0 gm PO ONCE PRN; Protocol PRN Reason: Hypoglycemia Protocol Ferrous Sulfate (Feosol) 325 mg PO TID [facility] Last Admin: 08/19/17 08:34 Dose: 325 mg Furosemide (Lasix) 80 mg PO DAILY [facility] Last Admin: 08/13/17 09:42 Dose: Not Given Glucagon (Glucagen Diagnostic Kit) 0 mg IM STAT PRN; Protocol PRN Reason: Hypoglycemia Protocol Heparin Sodium (Porcine) (Heparin) 5,000 units SC Q8 [facility] PRN Reason: Protocol Last Admin: 08/19/17 08:35 Dose: 5,000 units Ertapenem 1 gm/ Sodium (Chloride) 100 mls @ 100 mls/hr IVPB DAILY [facility] PRN Reason: Protocol Last Admin: 08/19/17 08:38 Dose: 100 mls/hr Insulin Human Lispro (Humalog) 20 units SC BID [facility] Last Admin: 08/19/17 08:56 Dose: Not Given Insulin Human Lispro (Humalog) 0 units SC ACCU-CHECK [facility] PRN Reason: Protocol Last Admin: 08/19/17 08:37 Dose: Not Given Latanoprost (Xalatan Opht) 1 drop OU HS [facility] Last Admin: 08/18/17 21:08 Dose: 1 drop Lisinopril (Zestril) 20 mg PO DAILY [facility] Last Admin: 08/19/17 08:43 Dose: 20 mg Multivitamins/Minerals (Therapeutic-M Tab) 1 tab PO DAILY [facility] Last Admin: 08/19/17 08:43 Dose: 1 tab Ondansetron HCl (Zofran Inj) 4 mg IVP Q6 PRN PRN Reason: Nausea/Vomiting Last Admin: 08/14/17 13:16 Dose: 4 mg Pantoprazole Sodium (Protonix Inj) 40 mg IVP DAILY [facility] Last Admin: 08/19/17 08:40 Dose: 40 mg Fluticasone/Salmeterol (Advair Diskus 250/50) 1 puff IH Q12 [facility] Last Admin: 08/19/17 08:32 Dose: 1 puff Tamsulosin HCl (Flomax) 0.8 mg PO DAILY [facility] - Labs Labs: 08/19/17 04:20 08/19/17 04:20 PT 11.8 Seconds (9.8-13.1) 08/12/17 14:35 INR 1.1 (0.9-1.2) 08/12/17 14:35 APTT 32.3 Seconds (25.6-37.1) 08/12/17 14:35 - Constitutional Appears: No Acute Distress, Other (aphasic, NC on 2 L ) - Head Exam Head Exam: NORMAL INSPECTION - Eye Exam Eye Exam: EOMI, Normal appearance - ENT Exam ENT Exam: Mucous Membranes Moist - Respiratory Exam Respiratory Exam: Clear to Ausculation Bilateral, NORMAL BREATHING PATTERN. absent: Wheezes - Cardiovascular Exam Cardiovascular Exam: REGULAR RHYTHM, +S1, +S2 - GI/Abdominal Exam GI & Abdominal Exam: Soft, Normal Bowel Sounds. absent: Guarding, Tenderness - Exam Exam: NORMAL INSPECTION (Johnson in place draining clear yellow fluid ) - Extremities Exam Extremities Exam: Normal Inspection. absent: Calf Tenderness Additional comments: RUE flaccidity and weakness of the right lower extremity Moving LUE and LLE - Neurological Exam Neurological Exam: Alert, Awake - Psychiatric Exam Psychiatric exam: Normal Affect, Normal Mood Assessment and Plan - Assessment and Plan (Free Text) Assessment: Assessment/Plan: 82 YO male with PMHz of Diastolic HF, COPD, CAD s/p stent x 4, CKD, DM2 on insulin, HTN, HLD, Colon CA s/p surgery (1961), TIA/CVA (1988), left eye blindness/diabetic retinopathy admitted for acute stroke. Admission complicated by subsequent stroke, hypoxia requiring intubation, s/p extubation. Acute Stroke, L temporal/occipital junction (08/12) and acute infract L frontal lobe (08/13) -MRI head 08/12; acute stroke in region of the left temporal/occipital junction; no hemorrhage. -CTA head and neck 08/12: Occluded left ICA chronic, Mild proximal b/l vertebral artery atherosclerosis -EKG 08/12: Sinus bradycardia with occasional premature ventricular complexes, Left ventricular hypertrophy with repolarization abnormality -Repeat CT 08/13: acute infract left frontal lobe -Neuro on consult; change aspirin po to OR until ogt/ NGT inserted, permissive HTN until 12 noon today, blood pressure and glycemic control. If the patient further declines with mental status, to repeat CT scan of the head without contrast. -Neuro on board; cont meds; Continue all current medical, PT/OT. Recommend starting with electrical stimulation of the right side. If the patient further declines with mental status, to repeat CT scan of the head without contrast. -passes swallow eval post extubation -c/w Aspirin and Plavix -PT/OT evaluation -modified dysphagia diet started Pneumonia, RUL -Chest x-ray 08/14/17; RUL infiltrate -likely aspiration pneumonia -finding not seen on chest xray 08/12 -remains afebrile, currently intubated -ID and pulmonary consulted -ID on board; Per culture susan, started on Ertapenem (D3) -s/p Zosyn (D4) HTN - Uncontrolled -C/w home meds, Lisinopril 10daily -c/w 10mg Norvasc -will increase Carvidilol to 25mg -renal ultrasounds as outpatient -Monitor BP closely Low vitamin D -Vit D level <12.8 -c/w 2000mg vit D daily CAD s/p stent x 4 -EKG: Sinus bradycardia with occasional premature ventricular complexes, Left ventricular hypertrophy with repolarization abnormality -echo normal LV, EF 55-60% -c/w Coreg, Statin, ASA and plavix History of Diastolic HF -Last ECHO from 11/2013 --> Normal LV syst function; Concentric LVH; Impaired Diastolic function -echo normal LV, EF 55-60% -hold Lasix 80mg PO daily for now due to elevated bun/cr -Continue Lipitor 40 mg, ASA 81mg -Out patient Cardiology: Dr. Carlos DM2 on insulin -C/w Home insulin -Correction scale -HBA1C 9.2 DVT PPX -c/w heparin Dispo -social work on consult -PT/OT on consult -Rehab for PT/OT
[2017-08-19] MEDS ORDERED: Potassium Chloride 20 mEq ER Tab PO ONE (11:30)
--- NOTE | 2017-08-19 11:46 | CP.PCM.PN ---
Subjective - Date & Time of Evaluation Date of Evaluation: 08/19/17 Time of Evaluation: 11:46 - Subjective Subjective: ID Note- Patient seen and examined today in tele floor. patient much better clinically. denies any sob. denies any fever or chills. his son is at his bedside. Objective - Vital Signs/Intake and Output Vital Signs (last 24 hours): Temp Pulse Resp BP Pulse Ox 98.1 F 87 20 160/72 H 96 08/19/17 08:17 08/19/17 08:43 08/19/17 08:17 08/19/17 08:43 08/19/17 08:17 - Medications Medications: Current Medications Albuterol Sulfate (Albuterol 0.083% Inhal Bere (2.5 Mg/3 Ml) Ud) 2.5 mg IH Q6 PRN PRN Reason: Shortness of Breath Albuterol/Ipratropium (Duoneb 3 Mg/0.5 Mg (3 Ml) Ud) 3 ml INH RQID [facility] Last Admin: 08/19/17 11:21 Dose: 3 ml Amlodipine Besylate (Norvasc) 10 mg PO DAILY [facility] Last Admin: 08/19/17 08:39 Dose: 10 mg Aspirin (Aspirin Chewable) 81 mg PO DAILY [facility] Last Admin: 08/19/17 08:32 Dose: 81 mg Atorvastatin Calcium (Lipitor) 40 mg PO DAILY [facility] Last Admin: 08/19/17 08:39 Dose: 40 mg Carvedilol (Coreg) 25 mg PO Q12 [facility] Cholecalciferol (Vitamin D) 2,000 intlu PO DAILY [facility] Last Admin: 08/13/17 15:32 Dose: 2,000 intlu Clopidogrel Bisulfate (Plavix) 75 mg PO DAILY [facility] Last Admin: 08/19/17 08:40 Dose: 75 mg Dextrose (Dextrose 50% Inj) 0 ml IV STAT PRN; Protocol PRN Reason: Hypoglycemia Protocol Dextrose (Glutose 15) 0 gm PO ONCE PRN; Protocol PRN Reason: Hypoglycemia Protocol Ferrous Sulfate (Feosol) 325 mg PO TID [facility] Last Admin: 08/19/17 08:34 Dose: 325 mg Furosemide (Lasix) 40 mg PO DAILY [facility] Glucagon (Glucagen Diagnostic Kit) 0 mg IM STAT PRN; Protocol PRN Reason: Hypoglycemia Protocol Heparin Sodium (Porcine) (Heparin) 5,000 units SC Q8 [facility] PRN Reason: Protocol Last Admin: 08/19/17 08:35 Dose: 5,000 units Ertapenem 1 gm/ Sodium (Chloride) 100 mls @ 100 mls/hr IVPB DAILY [facility] PRN Reason: Protocol Last Admin: 08/19/17 08:38 Dose: 100 mls/hr Insulin Human Lispro (Humalog) 20 units SC BID [facility] Last Admin: 08/19/17 08:56 Dose: Not Given Insulin Human Lispro (Humalog) 0 units SC ACCU-CHECK [facility] PRN Reason: Protocol Last Admin: 08/19/17 08:37 Dose: Not Given Latanoprost (Xalatan Opht) 1 drop OU HS [facility] Last Admin: 08/18/17 21:08 Dose: 1 drop Lisinopril (Zestril) 20 mg PO DAILY [facility] Last Admin: 08/19/17 08:43 Dose: 20 mg Multivitamins/Minerals (Therapeutic-M Tab) 1 tab PO DAILY [facility] Last Admin: 08/19/17 08:43 Dose: 1 tab Ondansetron HCl (Zofran Inj) 4 mg IVP Q6 PRN PRN Reason: Nausea/Vomiting Last Admin: 08/14/17 13:16 Dose: 4 mg Fluticasone/Salmeterol (Advair Diskus 250/50) 1 puff IH Q12 [facility] Last Admin: 08/19/17 08:32 Dose: 1 puff Tamsulosin HCl (Flomax) 0.8 mg PO [facility] - Labs Labs: - Additional Findings Additional findings: - Constitutional Appears: No Acute Distress Additional comments: awake and alert - Head Exam Head Exam: ATRAUMATIC - Eye Exam Eye Exam: EOMI - Neck Exam Neck exam: Positive for: Full Rom - Respiratory Exam Additional comments: good aeration B/L no wheezing - Cardiovascular Exam Cardiovascular Exam: RRR, +S1, +S2 - GI/Abdominal Exam GI & Abdominal Exam: Normal Bowel Sounds, Soft Additional comments: NT, ND - Extremities Exam Extremities exam: Positive for: normal inspection - Neurological Exam Neurological exam: Alert Additional comments: awake and follows commands right hemiparesis Laboratory Results - last 72 hr 08/16/17 08/16/17 08/16/17 10:59 15:45 21:14 WBC RBC Hgb Hct MCV MCH MCHC RDW Plt Count MPV Neut % (Auto) Lymph % (Auto) [place] % (Auto) Eos % (Auto) Baso % (Auto) Neut # (Auto) Lymph # (Auto) [place] # (Auto) Eos # (Auto) Baso # (Auto) Sodium Potassium Chloride Carbon Dioxide Anion Gap BUN Creatinine Est GFR ( Amer) Est GFR (Non-Af Amer) POC Glucose (mg/dL) 133 H 176 H Random Glucose Calcium Prolactin 8.3 08/17/17 08/17/17 08/17/17 05:17 05:17 05:17 WBC 8.6 RBC 3.07 L Hgb 9.3 L Hct 27.9 L MCV 90.8 MCH 30.4 MCHC 33.5 RDW 14.1 Plt Count 294 MPV 9.0 Neut % (Auto) 69.3 Lymph % (Auto) 10.8 L [place] % (Auto) 13.1 H Eos % (Auto) 6.3 H Baso % (Auto) 0.5 Neut # (Auto) 5.9 Lymph # (Auto) 0.9 L [place] # (Auto) 1.1 H Eos # (Auto) 0.5 Baso # (Auto) 0.0 Sodium 145 Potassium 3.8 Chloride 108 H Carbon Dioxide 27 Anion Gap 14 BUN 20 Creatinine 1.9 H Est GFR ( Amer) 41 Est GFR (Non-Af Amer) 34 POC Glucose (mg/dL) 128 H Random Glucose 134 H Calcium 8.1 L Prolactin 08/17/17 08/17/17 08/17/17 07:29 11:16 16:30 WBC RBC Hgb Hct MCV MCH MCHC RDW Plt Count MPV Neut % (Auto) Lymph % (Auto) [place] % (Auto) Eos % (Auto) Baso % (Auto) Neut # (Auto) Lymph # (Auto) [place] # (Auto) Eos # (Auto) Baso # (Auto) Sodium Potassium Chloride Carbon Dioxide Anion Gap BUN Creatinine Est GFR ( Amer) Est GFR (Non-Af Amer) POC Glucose (mg/dL) 141 H 178 H 184 H Random Glucose Calcium Prolactin 08/17/17 08/18/17 08/18/17 21:09 05:03 06:20 WBC RBC Hgb Hct MCV MCH MCHC RDW Plt Count MPV Neut % (Auto) Lymph % (Auto) [place] % (Auto) Eos % (Auto) Baso % (Auto) Neut # (Auto) Lymph # (Auto) [place] # (Auto) Eos # (Auto) Baso # (Auto) Sodium 144 Potassium 3.2 L Chloride 108 H Carbon Dioxide 23 Anion Gap 16 BUN 18 Creatinine 1.7 H Est GFR ( Amer) 47 Est GFR (Non-Af Amer) 39 POC Glucose (mg/dL) 187 H 147 H Random Glucose 172 H Calcium 8.3 L Prolactin 08/18/17 08/18/17 08/18/17 11:14 15:44 21:25 WBC RBC Hgb Hct MCV MCH MCHC RDW Plt Count MPV Neut % (Auto) Lymph % (Auto) [place] % (Auto) Eos % (Auto) Baso % (Auto) Neut # (Auto) Lymph # (Auto) [place] # (Auto) Eos # (Auto) Baso # (Auto) Sodium Potassium Chloride Carbon Dioxide Anion Gap BUN Creatinine Est GFR ( Amer) Est GFR (Non-Af Amer) POC Glucose (mg/dL) 159 H 170 H 115 H Random Glucose Calcium Prolactin 08/19/17 08/19/17 08/19/17 04:20 04:20 05:25 WBC 6.6 RBC 2.92 L Hgb 9.0 L Hct 26.3 L MCV 90.2 MCH 30.8 MCHC 34.2 RDW 14.2 Plt Count 300 MPV 9.5 Neut % (Auto) 61.7 Lymph % (Auto) 15.1 L [place] % (Auto) 14.4 H Eos % (Auto) 7.9 H Baso % (Auto) 0.9 Neut # (Auto) 4.0 Lymph # (Auto) 1.0 [place] # (Auto) 0.9 H Eos # (Auto) 0.5 Baso # (Auto) 0.1 Sodium 143 Potassium 3.7 Chloride 110 H Carbon Dioxide 24 Anion Gap 13 BUN 17 Creatinine 1.7 H Est GFR ( Amer) 47 Est GFR (Non-Af Amer) 39 POC Glucose (mg/dL) 118 H Random Glucose 108 Calcium 7.9 L Prolactin 08/19/17 10:50 WBC RBC Hgb Hct MCV MCH MCHC RDW Plt Count MPV Neut % (Auto) Lymph % (Auto) [place] % (Auto) Eos % (Auto) Baso % (Auto) Neut # (Auto) Lymph # (Auto) [place] # (Auto) Eos # (Auto) Baso # (Auto) Sodium Potassium Chloride Carbon Dioxide Anion Gap BUN Creatinine Est GFR ( Amer) Est GFR (Non-Af Amer) POC Glucose (mg/dL) 167 H Random Glucose Calcium Prolactin Microbiology 08/17/17 07:45 Nose MRSA Culture (Admit) - Final MRSA NOT DETECTED 08/14/17 21:35 Blood Blood Culture - Preliminary NO GROWTH AFTER 4 DAYS 08/14/17 21:00 Blood Blood Culture - Preliminary NO GROWTH AFTER 4 DAYS 08/14/17 19:20 Trachasp Gram Stain - Final 08/14/17 19:20 Trachasp Sputum Culture - Final Serratia Marcescens 08/13/17 05:04 Naris MRSA Culture (Admit) - Final MRSA NOT DETECTED Assessment and Plan (1) Ischemic stroke Status: Acute (2) Respiratory distress Status: Acute (3) COPD (chronic obstructive pulmonary disease) Status: Chronic (4) DM2 (diabetes mellitus, type 2) Status: Acute - Assessment and Plan (Free Text) Assessment: A/P- 82 year old male with PMH of CHF, DM II, HTN admitted with TIA work up and found to have CVA and s/p [employer] for aspiration and hypoxeia and s/p intubation. extubated 5 days ago and is on tele floor. clinically much improved. improved. remains afebrile leukocytosis has resolved. blood cx- neg x 2 trach asp cx- reported today serratia marsecens sensitive to ertapenem Plan- had completed 4 days of IV zosyn. eventhough clinically much improved in light of the trach asp cx result started pt. on ertapenem 3 days ago. day #3 today. advise 2 more days of IV ertapenem Monitor aspiration precautions. All above d/w family practice team.
--- NOTE | 2017-08-19 12:50 | CP.PCM.DIS ---
Provider - Provider Date of Admission: 08/12/17 15:32 Attending physician: Elvia Brewer MD Primary care physician: Dani Carlos MD Consults: Neuro: Dr. Thomas ID: Dr. Buck Pulmonary: Dr. Paul Time Spent in preparation of Discharge (in minutes): 30 Hospital Course - Lab Results Lab Results: Micro Results 08/14/17 21:35 Blood Blood Culture - Preliminary NO GROWTH AFTER 4 DAYS 08/14/17 21:00 Blood Blood Culture - Preliminary NO GROWTH AFTER 4 DAYS 08/14/17 19:20 Trachasp Gram Stain - Final 08/14/17 19:20 Trachasp Sputum Culture - Final Serratia Marcescens 08/13/17 05:04 Naris MRSA Culture (Admit) - Final MRSA NOT DETECTED Most Recent Lab Values WBC 6.6 K/uL (4.8-10.8) 08/19/17 04:20 RBC 2.92 Mil/uL (4.40-5.90) L 08/19/17 04:20 Hgb 9.0 g/dL (12.0-18.0) L 08/19/17 04:20 Hct 26.3 % (35.0-51.0) L 08/19/17 04:20 MCV 90.2 fl (80.0-94.0) 08/19/17 04:20 MCH 30.8 pg (27.0-31.0) 08/19/17 04:20 MCHC 34.2 g/dL (33.0-37.0) 08/19/17 04:20 RDW 14.2 % (11.5-14.5) 08/19/17 04:20 Plt Count 300 K/uL (130-400) 08/19/17 04:20 MPV 9.5 fl (7.2-11.7) 08/19/17 04:20 Neut % (Auto) 61.7 % (50.0-75.0) 08/19/17 04:20 Lymph % (Auto) 15.1 % (20.0-40.0) L 08/19/17 04:20 Centre % (Auto) 14.4 % (0.0-10.0) H 08/19/17 04:20 Eos % (Auto) 7.9 % (0.0-4.0) H 08/19/17 04:20 Baso % (Auto) 0.9 % (0.0-2.0) 08/19/17 04:20 Neut # (Auto) 4.0 K/uL (1.8-7.0) 08/19/17 04:20 Lymph # (Auto) 1.0 K/uL (1.0-4.3) 08/19/17 04:20 Centre # (Auto) 0.9 K/uL (0.0-0.8) H 08/19/17 04:20 Eos # (Auto) 0.5 K/uL (0.0-0.7) 08/19/17 04:20 Baso # (Auto) 0.1 K/uL (0.0-0.2) 08/19/17 04:20 Neutrophils % (Manual) 84 % (42-75) H 08/14/17 04:55 Band Neutrophils % 1 % (0-2) 08/14/17 04:55 Lymphocytes % (Manual) 6 % (20-50) L 08/14/17 04:55 Reactive Lymphs % 1 % (0-0) H 08/14/17 04:55 Monocytes % (Manual) 8 % (0-10) 08/14/17 04:55 Platelet Estimate Normal (NORMAL) 08/14/17 04:55 Hypochromasia (manual) Slight 08/14/17 04:55 Anisocytosis (manual) Slight 08/14/17 04:55 Helmet Cells Slight 08/14/17 04:55 PT 11.8 Seconds (9.8-13.1) 08/12/17 14:35 INR 1.1 (0.9-1.2) 08/12/17 14:35 APTT 32.3 Seconds (25.6-37.1) 08/12/17 14:35 pCO2 39 mm/Hg (35-45) 08/15/17 05:17 pO2 152 mm/Hg (80-100) H 08/15/17 05:17 HCO3 21.1 mmol/L (21-28) 08/15/17 05:17 ABG pH 7.33 (7.35-7.45) L 08/15/17 05:17 ABG Total CO2 21.8 mmol/L (22-28) L 08/15/17 05:17 ABG O2 Saturation 100.0 % (95-98) H 08/15/17 05:17 ABG O2 Content 16.7 ML/dL (15-23) 08/15/17 05:17 ABG Base Excess -4.9 mmol/L (-2.0-3.0) L 08/15/17 05:17 ABG Hemoglobin 12.0 g/dL (11.7-17.4) 08/15/17 05:17 ABG Carboxyhemoglobin 1.5 % (0.5-1.5) 08/15/17 05:17 POC ABG HHb (Measured) 0.0 % (0.0-5.0) 08/15/17 05:17 ABG Methemoglobin 1.4 % (0.0-3.0) 08/15/17 05:17 ABG O2 Capacity 16.7 mL/dL (16-24) 08/15/17 05:17 Haseeb Test Yes 08/15/17 05:17 A-a O2 Difference 84.0 mm/Hg 08/15/17 05:17 Hgb O2 Saturation 97.0 % (95.0-98.0) 08/15/17 05:17 Vent Mode A/c 08/14/17 05:24 Mechanical Rate 8 08/15/17 05:17 FiO2 40.0 % 08/15/17 05:17 Tidal Volume 450 08/15/17 05:17 PEEP 5 08/15/17 05:17 Sodium 143 mmol/l (132-148) 08/19/17 04:20 Potassium 3.7 MMOL/L (3.6-5.0) 08/19/17 04:20 Chloride 110 mmol/L (98-107) H 08/19/17 04:20 Carbon Dioxide 24 mmol/L (22-30) 08/19/17 04:20 Anion Gap 13 (10-20) 08/19/17 04:20 BUN 17 mg/dl (9-20) 08/19/17 04:20 Creatinine 1.7 mg/dl (0.8-1.5) H 08/19/17 04:20 Est GFR ( Amer) 47 08/19/17 04:20 Est GFR (Non-Af Amer) 39 08/19/17 04:20 POC Glucose (mg/dL) 167 mg/dL (65-110) H 08/19/17 10:50 Random Glucose 108 mg/dL (75-110) 08/19/17 04:20 Hemoglobin A1c 9.2 % (4.2-6.5) H D 08/12/17 14:35 Lactic Acid 1.5 MMOL/L (0.7-2.1) 08/13/17 23:05 Calcium 7.9 mg/dL (8.4-10.2) L 08/19/17 04:20 Total Bilirubin 0.7 mg/dl (0.2-1.3) 08/15/17 04:35 AST 24 U/L (17-59) 08/15/17 04:35 ALT 24 U/L (21-72) 08/15/17 04:35 Alkaline Phosphatase 88 U/L (38-126) 08/15/17 04:35 Troponin I 0.1050 ng/mL (0.00-0.120) 08/13/17 23:16 Total Protein 5.6 G/DL (6.3-8.2) L 08/15/17 04:35 Albumin 2.7 g/dL (3.5-5.0) L 08/15/17 04:35 Globulin 2.9 gm/dL (2.2-3.9) 08/15/17 04:35 Albumin/Globulin Ratio 0.9 (1.0-2.1) L 08/15/17 04:35 Triglycerides 138 mg/DL (0-149) D 08/12/17 14:35 Cholesterol 213 mg/dL (0-199) H 08/12/17 14:35 LDL Cholesterol Direct 131 mg/dL (0-129) H 08/12/17 14:35 HDL Cholesterol 27 MG/DL (30-70) L 08/12/17 14:35 Vitamin B12 427 pg/mL (239-931) 08/13/17 04:20 25-OH Vitamin D Total < 12.8 NG/ML (30.0-100.0) L 08/13/17 04:20 Folate > 20.0 ng/mL 08/13/17 04:20 Prolactin 8.3 ng/mL (3.7-17.9) 08/16/17 10:59 Blood Type O POSITIVE 08/12/17 15:48 Antibody Screen Negative 08/12/17 15:48 BBK History Checked Patient has bt 08/12/17 15:48 - Hospital Course Hospital Course: 82 YO male with PMHz of Diastolic HF, COPD, CAD s/p stent x 4, CKD, DM2 on insulin, HTN, HLD, Colon CA s/p surgery (1961), TIA/CVA (1988), left eye blindness/diabetic retinopathy admitted for acute stroke. On admission, pt was found to have an acute stroke in L temporal/occipital junction, TPA was not administered due to time frame. Admission was complicated by subsequent stroke in L frontal lobe, pt was hypoxic requiring intubation and was found to have a RUL pneumonia. Pt was extubated 08/15, and remains stable clinically, on abx, with residual R sided weakness, aphasia and cleared by Neuro for acute rehab. Per ID, will cont IV ertapenem for two more days for a total of 5 day therapy. Will d/c pt to acute rehab. Cont Meds: Albuterol Sulfate (Albuterol 0.083% Inhal Bere (2.5 Mg/3 Ml) Ud) 2.5 mg IH Q6 PRN Albuterol/Ipratropium (Duoneb 3 Mg/0.5 Mg (3 Ml) Ud) 3 ml INH RQID TREY Amlodipine Besylate (Norvasc) 10 mg PO DAILY TREY Aspirin (Aspirin Chewable) 81 mg PO DAILY TREY Atorvastatin Calcium (Lipitor) 40 mg PO DAILY TRE[facility] Carvedilol (Coreg) 25 mg PO Q12 TREY Cholecalciferol (Vitamin D) 2,000 intlu PO DAILY TRE[facility] Clopidogrel Bisulfate (Plavix) 75 mg PO DAILY TREY Ferrous Sulfate (Feosol) 325 mg PO TID TREY Furosemide (Lasix) 80 mg PO DAILY TREY---on hold for now Heparin Sodium (Porcine) (Heparin) 5,000 units SC Q8 RTEY Ertapenem 1 gm/ Sodium (Chloride) 100 mls @ 100 mls/hr IVPB DAILY TREY Insulin Human Lispro (Humalog) 20 units SC BID TREY Latanoprost (Xalatan Opht) 1 drop OU HS TREY Lisinopril (Zestril) 20 mg PO DAILY [facility] Multivitamins/Minerals (Therapeutic-M Tab) 1 tab PO DAILY [facility] Fluticasone/Salmeterol (Advair Diskus 250/50) 1 puff IH Q12 TREY Tamsulosin HCl (Flomax) 0.8 mg PO DAILY TREY Discharge Exam - Head Exam Head Exam: NORMAL INSPECTION Additional comments: O2 2L NC R sided facial droop - Eye Exam Eye Exam: EOMI Additional comments: Baseline L eye blindness - ENT Exam ENT Exam: Mucous Membranes Moist - Respiratory Exam Respiratory Exam: Clear to PA & Lateral, NORMAL BREATHING PATTERN. absent: Wheezes - Cardiovascular Exam Cardiovascular Exam: REGULAR RHYTHM, +S1, +S2 - GI/Abdominal Exam GI & Abdominal Exam: Normal Bowel Sounds. absent: Distended, Guarding, Tenderness - Exam Exam: NORMAL INSPECTION (Johnson in place, draining clear yellow output ) - Extremities Exam Extremities exam: normal inspection - Neurological Exam Neurological exam: Alert (communicates via nodding and verbal cues ) Discharge Plan - Follow Up Plan Condition: FAIR Disposition: REHAB FACILITY/REHAB UNIT Instructions: Stroke (DC), Lowering the Risk of Having Another Stroke, Left- Side Stroke (DC) Referrals: Dani Carlos MD [Primary Care Provider] -
[2017-08-19 16:28] VITALS: BP 136/68; PULSE 76; RESP 17; TEMP 98.9; O2SAT 100
[2017-08-20 01:48] LABS: SQUAMOUS EPITHIAL 1 /hpf (0-5); URINE BILIRUBIN NEGATIVE (NEGATIVE); URINE BLOOD SMALL (NEGATIVE); URINE CLARITY CLOUDY (Clear); URINE COLOR AMBER (YELLOW); URINE GLUCOSE (UA) >=500 mg/dL (Normal); URINE HYALINE CAST 0-2 /hpf (0-2); URINE LEUKOCYTE ESTERASE MOD Leu/uL (Negative); URINE PROTEIN >=500 mg/dL (NEGATIVE); WBC CLUMPS FEW /hpf
== END 2017-08-19 17:00 | DRG 64 ==
LOC: SUPCPDRO 14:33 → H.ER 14:33 → H.ERHOLD 15:32 → H.TEL 18:15 → H.ICU/CCU 08-13 21:59 → H.TEL 08-17 15:17
PROVIDERS: ADMIT Family Medicine Geriatric Medicine; ATTEND Family Medicine Geriatric Medicine
PROC: 5A1945Z Respiratory Ventilation, 24-96 Consecutive Hours (ICD-10-PCS; principal; 2017-08-13)
PROC: 0BH17EZ Insertion of Endotracheal Airway into Trachea, Via Natural or Artificial Opening (ICD-10-PCS; 2017-08-13)
DX: I63.8 Other cerebral infarction (principal); J69.0 Pneumonitis due to inhalation of food and vomit; J96.01 Acute respiratory failure with hypoxia; G81.91 Hemiplegia, unspecified affecting right dominant side; I13.0 Hypertensive heart and chronic kidney disease with heart failure and stage 1 through stage 4 chronic kidney disease, or unspecified chronic kidney disease; I50.32 Chronic diastolic (congestive) heart failure; N18.3 Chronic kidney disease, stage 3 (moderate); I69.320 Aphasia following cerebral infarction; I69.392 Facial weakness following cerebral infarction; R29.712 NIHSS score 12; E11.22 Type 2 diabetes mellitus with diabetic chronic kidney disease; E11.319 Type 2 diabetes mellitus with unspecified diabetic retinopathy without macular edema; H54.62 Unqualified visual loss, left eye, normal vision right eye; I25.10 Atherosclerotic heart disease of native coronary artery without angina pectoris; I65.22 Occlusion and stenosis of left carotid artery; I67.2 Cerebral atherosclerosis; E78.5 Hyperlipidemia, unspecified; E78.00 Pure hypercholesterolemia, unspecified; D64.9 Anemia, unspecified; D72.828 Other elevated white blood cell count; J44.9 Chronic obstructive pulmonary disease, unspecified; Z78.1 Physical restraint status; Z95.5 Presence of coronary angioplasty implant and graft; Z85.038 Personal history of other malignant neoplasm of large intestine; Z79.02 Long term (current) use of antithrombotics/antiplatelets; Z79.82 Long term (current) use of aspirin; Z79.4 Long term (current) use of insulin; Z87.891 Personal history of nicotine dependence

== ENCOUNTER 2017-08-19 12:48 | Inpatient (IN) | payer MEDICARE, OTHER ==
[2017-08-19 15:54] VITALS: BMI 29.4
[2017-08-19] MEDS ORDERED: Glucagon Recombinant 1 mg Inj IM PRN (18:15)
[2017-08-19] MEDS ORDERED: Dextrose 50% SYRINGE Inj (50 ml) IV PRN (18:15)
[2017-08-19] MEDS: Fluticasone-Salmeterol 250-50mcg Diskus IH SCH (21:22)
[2017-08-19] MEDS: Latanoprost 0.005% Opht SOUTION OU SCH (21:28)
[2017-08-19] MEDS: Insulin Lispro (humaLOG) 100 Units/ml Inj SC SCH (21:36)
[2017-08-19] MEDS: Albuterol-Ipratrop 3 mg / 0.5 (3 ml) UD INH SCH (21:37)
--- NOTE | 2017-08-20 06:46 | CP.PCM.HP ---
History of Present Illness - History of Present Illness History of Present Illness: Acute Rehab HPI: 82 YO male with PMHx of Diastolic Heart Failure, COPD, CAD s/p stent x 4, CKD, DM2 on insulin, HTN, HLD, Colon CA s/p surgery (1961), TIA/CVA (1988), left eye blindness/diabetic retinopathy, acute stroke x 2 is admitted to acute rehab for therapy post stroke. On admission, pt was found to have an acute stroke in L temporal/occipital junction. Admission was complicated by subsequent stroke in L frontal lobe, pt was hypoxic requiring intubation and was found to have a RUL pneumonia. Pt was extubated 08/15, and remains stable clinically, on abx, with residual R sided weakness, aphasia and cleared by Neuro for acute rehab. Per ID, will cont IV ertapenem for two more days for a total of 5 day therapy. Today, pt is hemodynamically stable, able to communicate via nodding. Denies headache, blurry vision, chest pain, dyspnea, n/ v/d/c. PMD: [facility], last visit in 2015 PMH: Diastolic Heart Failure, COPD, CAD s/p stent x 4, CKD, DM2 on insulin, HTN , HLD, Colon CA s/p surgery (1961), TIA/CVA (1988), left eye blindness/diabetic retinopathy SurgHx: Cardiac Cath, Stents placement Colon CA surgery (1961) - Type unclear FHx: Father age 56 - Cause unknown Mother age 45 - [place] SH: Lives with , kids, grandson Remote history of ETOH (beer) and Tobacco use --> States last use >40yrs ago before history of colon CA surgery Denied illicit drug use Currently on disability Allergies: Morphine - "Headache/N/V" Hospital Meds: Albuterol Sulfate (Albuterol 0.083% Inhal Bere (2.5 Mg/3 Ml) Ud) 2.5 mg IH Q6 PRN Albuterol/Ipratropium (Duoneb 3 Mg/0.5 Mg (3 Ml) Ud) 3 ml INH RQID TREY Amlodipine Besylate (Norvasc) 10 mg PO DAILY TRE[facility] Aspirin (Aspirin Chewable) 81 mg PO DAILY [facility] Atorvastatin Calcium (Lipitor) 40 mg PO DAILY [facility] Carvedilol (Coreg) 25 mg PO Q12 TREY Cholecalciferol (Vitamin D) 2,000 intlu PO DAILY [facility] Clopidogrel Bisulfate (Plavix) 75 mg PO DAILY [facility] Ferrous Sulfate (Feosol) 325 mg PO TID [facility] Furosemide (Lasix) 80 mg PO DAILY [facility]---on hold for now Heparin Sodium (Porcine) (Heparin) 5,000 units SC Q8 [facility] Ertapenem 1 gm/ Sodium (Chloride) 100 mls @ 100 mls/hr IVPB DAILY [facility] Insulin Human Lispro (Humalog) 20 units SC BID [facility] Latanoprost (Xalatan Opht) 1 drop OU HS [facility] Lisinopril (Zestril) 20 mg PO DAILY [facility] Multivitamins/Minerals (Therapeutic-M Tab) 1 tab PO DAILY [facility] Fluticasone/Salmeterol (Advair Diskus 250/50) 1 puff IH Q12 [facility] Tamsulosin HCl (Flomax) 0.8 mg PO DAILY TREY Present on Admission - Present on Admission Any Indicators Present on Admission: No Review of Systems - Constitutional Constitutional: absent: Fever, Headache - EENT Eyes: absent: Blurred Vision - Cardiovascular Cardiovascular: absent: Chest Pain, Dyspnea - Gastrointestinal Gastrointestinal: absent: Abdominal Pain - Neurological Neurological: absent: Headaches Past Patient History - Infectious Disease Hx of Infectious Diseases: None - Tetanus Immunizations Tetanus Immunization: Unknown - Past Medical History & Family History Past Medical History?: Yes - Past Social History Smoking Status: Former Smoker Drugs: Denies Home Situation {Lives}: With Family - CARDIAC Hx Cardiac Disorders: Yes Hx Congestive Heart Failure: Yes Hx Hypercholesterolemia: Yes Hx Hypertension: Yes - PULMONARY Hx Chronic Obstructive Pulmonary Disease (COPD): Yes - NEUROLOGICAL Hx Transient Ischemic Attacks (TIA): Yes (Per history in ~1988) - HEENT 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) Hx Cataracts: Yes (left eye) - RENAL Hx Chronic Kidney Disease: Yes - ENDOCRINE/METABOLIC Hx Diabetes Mellitus Type 2: Yes (Insuline at home) - HEMATOLOGICAL/ONCOLOGICAL Hx Blood Disorders: No - INTEGUMENTARY Hx Dermatological Problems: No - MUSCULOSKELETAL/RHEUMATOLOGICAL Hx Falls: No - GASTROINTESTINAL Hx Gastrointestinal Disorders: No - GENITOURINARY/GYNECOLOGICAL Hx Genitourinary Disorders: No - PSYCHIATRIC Hx Substance Use: No - SURGICAL HISTORY Hx Coronary Stent: Yes (x4) - ANESTHESIA Hx Anesthesia: Yes Hx Anesthesia Reactions: No Meds Allergies/Adverse Reactions: Allergies Allergy/AdvReac Type Severity Reaction Status Date / Time morphine Allergy VOMITING Verified 02/02/16 19:03 Physical Exam - Constitutional Appears: No Acute Distress, Other (ON 2 L NC) - Head Exam Head Exam: NORMAL INSPECTION (Baseline L eye blindness) - Eye Exam Eye Exam: EOMI - ENT Exam ENT Exam: Mucous Membranes Moist - Respiratory Exam Respiratory Exam: Clear to Auscultation Bilateral, NORMAL BREATHING PATTERN. absent: Wheezes - Cardiovascular Exam Cardiovascular Exam: REGULAR RHYTHM, +S1, +S2 - GI/Abdominal Exam GI & Abdominal Exam: Normal Bowel Sounds, Soft. absent: Guarding, Tenderness - Exam Exam: NORMAL INSPECTION (hollis in place draining yellow, clear urine ). absent: Scrotal Swelling - Extremities Exam Extremities exam: Positive for: normal inspection (compression stocking in place ) Additional comments: Moving Left upper and lower extremity No mobility in RUE, some movement of hand Moving both lower extremities L>R - Back Exam Back exam: NORMAL INSPECTION Additional comments: Pressure ulcer in the back - Neurological Exam Neurological exam: Alert - Psychiatric Exam Psychiatric exam: Normal Affect, Normal Mood - Skin Skin Exam: Dry, Intact Results - Vital Signs Recent Vital Signs: Last Vital Signs Temp 98.2 F 08/19/17 22:00 Pulse 77 08/19/17 22:00 Resp 20 08/19/17 22:00 BP 155/75 H 08/19/17 22:00 Pulse Ox 100 08/19/17 22:00 - Labs Labs: Laboratory Results - last 24 hr 08/19/17 08/20/17 20:51 06:06 POC Glucose (mg/dL) 192 H 173 H Assessment & Plan - Assessment and Plan (Free Text) Assessment: Assessment/Plan: 82 YO male with PMHz of Diastolic HF, COPD, CAD s/p stent x 4, CKD, DM2 on insulin, HTN, HLD, Colon CA s/p surgery (1961), TIA/CVA (1988), left eye blindness/diabetic retinopathy, stroke x 2 (L temporal/occipital and L frontal lobe) is admitted to rehab for further therapy. Acute Stroke, L temporal/occipital junction (08/12) and acute infract L frontal lobe (08/13) -MRI head 08/12; acute stroke in region of the left temporal/occipital junction; no hemorrhage. -CTA head and neck 08/12: Occluded left ICA chronic, Mild proximal b/l vertebral artery atherosclerosis -EKG 08/12: Sinus bradycardia with occasional premature ventricular complexes, Left ventricular hypertrophy with repolarization abnormality -Repeat CT 08/13: acute infract left frontal lobe -Neuro on board; cont meds; Continue all current medical, PT/OT. Recommend starting with electrical stimulation of the right side. If the patient further declines with mental status, to repeat CT scan of the head without contrast. -passes swallow eval post extubation -c/w Aspirin and Plavix -c/w modified dysphagia diet Pneumonia, RUL -Chest x-ray 08/14/17; RUL infiltrate -likely aspiration pneumonia -finding not seen on chest xray 08/12 -remains afebrile, currently intubated -Seen by ID; Per culture serratia, c/w Ertapenem (D4/) -s/p Zosyn (D4) HTN - Uncontrolled -improving -C/w Lisinopril 10daily, 10mg Norvasc, Carvidilol 25mg BID -will continue meds -renal ultrasounds as outpatient -Monitor BP closely Low vitamin D -Vit D level <12.8 -c/w 2000mg vit D daily CAD s/p stent x 4 -EKG: Sinus bradycardia with occasional premature ventricular complexes, Left ventricular hypertrophy with repolarization abnormality -echo normal LV, EF 55-60% -c/w Coreg, Statin, ASA and plavix History of Diastolic HF -Last ECHO from 11/2013 --> Normal LV syst function; Concentric LVH; Impaired Diastolic function -echo normal LV, EF 55-60% -hold Lasix 80mg PO daily for now due to elevated bun/cr -Continue Lipitor 40 mg, ASA 81mg -Out patient Cardiology: Dr. Carlos DM2 on insulin -C/w Home insulin -Correction scale -HBA1C 9.2 DVT PPX -c/w heparin
[2017-08-20] MEDS: Albuterol-Ipratrop 3 mg / 0.5 (3 ml) UD INH SCH ×4 (07:34→19:06)
[2017-08-20] MEDS: Multivitamin With Minerals Tab PO SCH (08:19)
[2017-08-20] MEDS: Fluticasone-Salmeterol 250-50mcg Diskus IH SCH ×2 (08:19→21:17)
[2017-08-20] MEDS: Insulin Lispro (humaLOG) 100 Units/ml Inj SC SCH ×6 (08:24→22:00)
[2017-08-20] MEDS: Cholecalciferol 1,000 INTLU TAB PO SCH (08:28)
[2017-08-20] MEDS ORDERED: ERTAPENEM 1 GM IVPB SCH (09:00)
[2017-08-20] MEDS: Albuterol 0.083% Inhal Sol (2.5 mg/3 mL) UD IH PRN (10:34)
[2017-08-20] MEDS: Ciprofloxacin 400mg/200ml D5W 400 MG/200 ML BAG IVPB SCH ×2 (13:10→21:18)
--- NOTE | 2017-08-20 13:15 | PSY.TMCNF ---
Nursing - Vital Signs Vital Signs (Last 8 hours): Vital Signs 08/20/17 08/20/17 08/20/17 08:19 08:25 08:27 Temperature Pulse Rate 78 75 78 Respiratory Rate Blood Pressure 155/78 H 155/89 H 154/78 H O2 Sat by Pulse Oximetry 08/20/17 09:13 Temperature 97.3 F L Pulse Rate 78 Respiratory 20 Rate Blood Pressure 154/75 H O2 Sat by Pulse 98 Oximetry - Medications/Other Issues Comment: To follow as per nutrition protocol - Bladder Management Bladder Pattern: Retention Voiding Method: Indwelling Catheter - Bowel Management Bowel Pattern: Incontinent Physical Therapy - Pain Management Techniques: Medication - Assessment/Plan Assessment: Israel Banegas presents with 1.) moderate receptive and moderate -severe expressive aphasia characterized by difficulty answering yes/no and wh- questions, impaired direction following of 1+ step commands, impaired naming and automatic speech; 2.) moderate-severe apraxia of speech characterized by impaired motor planning resulting in difficulty initiating speech with oral groping behaviors and phoneme errors negatively impacting intelligibility; 3.) moderate dysarthria characterized by R facial droop and impaired respiration for phonation negatively impacting speech intelligibility, though difficult to fully assess dysarthria secondary to pt's limited verbal output at this time; and 4.) moderate oral dysphagia and suspected pharyngeal dysphagia characterized by impaired labial seal with intermittent R anterior spillage with liquids, prolonged mastication and A-P transit time with mild oral stasis with solids, and mildly delayed swallow initiation; no overt s/s aspiration observed on PO trials tested; however, pt with baseline wet cough/vocal quality and increased R infiltrates on CXR completed 08/14; suspect possible silent aspiration. Recommend Modified Barium Swallow (MBS) study to objectively r/o silent aspiration and assess pharyngeal swallow function. Recommend maintenance of puree and thin liquids at this time pending MBS results. Pt would benefit from dysphagia and speech tx 3-5x/week for diet tolerance, compensatory strategy training, and swallow exercises for improved swallow function and improved receptive/expressive language and motor speech skills for improved communicative effectiveness. - Provider License Number: [id number] Occupational Therapy - Arousal/Attention/Orientation Patient Orientation: Person - ADL/IADL Self Feeding: Minimal Assistance Grooming: Minimal Assistance Bathing-Upper Extremity: Maximum Assistance Bathing-Lower Extremity: Maximum Assistance Dressing-Upper Extremity: Maximum Assistance Dressing-Lower Extremity: Dependent - Pain Alleviating Techniques: Medication - Assessment/Plan Assessment: Israel Banegas presents with 1.) moderate receptive and moderate -severe expressive aphasia characterized by difficulty answering yes/no and wh- questions, impaired direction following of 1+ step commands, impaired naming and automatic speech; 2.) moderate-severe apraxia of speech characterized by impaired motor planning resulting in difficulty initiating speech with oral groping behaviors and phoneme errors negatively impacting intelligibility; 3.) moderate dysarthria characterized by R facial droop and impaired respiration for phonation negatively impacting speech intelligibility, though difficult to fully assess dysarthria secondary to pt's limited verbal output at this time; and 4.) moderate oral dysphagia and suspected pharyngeal dysphagia characterized by impaired labial seal with intermittent R anterior spillage with liquids, prolonged mastication and A-P transit time with mild oral stasis with solids, and mildly delayed swallow initiation; no overt s/s aspiration observed on PO trials tested; however, pt with baseline wet cough/vocal quality and increased R infiltrates on CXR completed 08/14; suspect possible silent aspiration. Recommend Modified Barium Swallow (MBS) study to objectively r/o silent aspiration and assess pharyngeal swallow function. Recommend maintenance of puree and thin liquids at this time pending MBS results. Pt would benefit from dysphagia and speech tx 3-5x/week for diet tolerance, compensatory strategy training, and swallow exercises for improved swallow function and improved receptive/expressive language and motor speech skills for improved communicative effectiveness. Speech Therapy - Consult Information Patient on Program: Yes Medical Diagnosis: CVA Treatment Diagnosis: -moderate receptive/moderate-severe expressive aphasia. - moderate-severe apraxia of speech. -moderate dysarthria. -moderate oral dysphagia/suspected pharyngeal dysphagia - Assessment Expressive Language Impairment: Severe Receptive Language Impairment: Moderate Speech/Articulation Impairment: Severe Dysphagia/Swallowing Impairment: Moderate - Plan Assessment: Israel Banegas presents with 1.) moderate receptive and moderate -severe expressive aphasia characterized by difficulty answering yes/no and wh- questions, impaired direction following of 1+ step commands, impaired naming and automatic speech; 2.) moderate-severe apraxia of speech characterized by impaired motor planning resulting in difficulty initiating speech with oral groping behaviors and phoneme errors negatively impacting intelligibility; 3.) moderate dysarthria characterized by R facial droop and impaired respiration for phonation negatively impacting speech intelligibility, though difficult to fully assess dysarthria secondary to pt's limited verbal output at this time; and 4.) moderate oral dysphagia and suspected pharyngeal dysphagia characterized by impaired labial seal with intermittent R anterior spillage with liquids, prolonged mastication and A-P transit time with mild oral stasis with solids, and mildly delayed swallow initiation; no overt s/s aspiration observed on PO trials tested; however, pt with baseline wet cough/vocal quality and increased R infiltrates on CXR completed 08/14; suspect possible silent aspiration. Recommend Modified Barium Swallow (MBS) study to objectively r/o silent aspiration and assess pharyngeal swallow function. Recommend maintenance of puree and thin liquids at this time pending MBS results. Pt would benefit from dysphagia and speech tx 3-5x/week for diet tolerance, compensatory strategy training, and swallow exercises for improved swallow function and improved receptive/expressive language and motor speech skills for improved communicative effectiveness. Plan: Continue Dysphagia Therapy, Continue Speech/Language Therapy Frequency: 3-5 times per week Duration: 1 week Goals/Timeframe: Please see IE completed 08/20/17 for goals/POC Recommendations: -Speech and dysphagia tx 3-5x/week. -MBS to objectively r/o aspiration. -puree/thin liquids - Provider Therapist: Natalie Burgos License Number: [id number] Recreational Therapy - Assessment Assessment/Plan: Israel Banegas presents with 1.) moderate receptive and moderate-severe expressive aphasia characterized by difficulty answering yes/no and wh- questions, impaired direction following of 1+ step commands, impaired naming and automatic speech; 2.) moderate-severe apraxia of speech characterized by impaired motor planning resulting in difficulty initiating speech with oral groping behaviors and phoneme errors negatively impacting intelligibility; 3.) moderate dysarthria characterized by R facial droop and impaired respiration for phonation negatively impacting speech intelligibility, though difficult to fully assess dysarthria secondary to pt's limited verbal output at this time; and 4.) moderate oral dysphagia and suspected pharyngeal dysphagia characterized by impaired labial seal with intermittent R anterior spillage with liquids, prolonged mastication and A-P transit time with mild oral stasis with solids, and mildly delayed swallow initiation; no overt s/s aspiration observed on PO trials tested; however, pt with baseline wet cough/ vocal quality and increased R infiltrates on CXR completed 08/14; suspect possible silent aspiration. Recommend Modified Barium Swallow (MBS) study to objectively r/o silent aspiration and assess pharyngeal swallow function. Recommend maintenance of puree and thin liquids at this time pending MBS results. Pt would benefit from dysphagia and speech tx 3-5x/week for diet tolerance, compensatory strategy training, and swallow exercises for improved swallow function and improved receptive/expressive language and motor speech skills for improved communicative effectiveness. Nutrition - Current Diet Current Diet/ Supplement/ Feedings: Moderate consistent CHO pureed thin liquids - Appetite Percent Meal Consumed: 75-100% - Assessment/Goals/Time Frame Assessment/Goals/Time Frame: To follow as per nutrition protocol - Provider Provider: Amairani Alicea RD Case Management - Discharge Plan Discharge Plan: Home with significant other/family Rehabilitation Plan - Treatment Plan Treatment Plan: Physical Therapy, Occupational Therapy, Speech, Dietary, Patient /Family Education - Discharge Plan Discharge to: Subacute
--- NOTE | 2017-08-20 13:26 | PCM.OPOC ---
Physiatry Overall Plan of Care - Overall Plan of Care Estimated Length of Stay in Weeks: 3 Rehab Impairment: Mobility, Gait, Cognition, Speech, Balance, Coordination Etiologic Diagnosis: Cerebrovascular Accident Rehab/Medical Prognosis: Guarded - Anticipated Interventions Physical Therapy:: Yes Occupational Therapy:: Yes Speech Therapy:: Yes Recreational Therapy:: Yes - Therapy Goals Bed Mobility: Minimal Assistance Ambulation: Minimal Assistance Functional Positional Changes:: Minimal Assistance - Discharge Plan Discharge Destination: Subacute
--- NOTE | 2017-08-20 13:28 | CP.PCM.CON ---
History of Present Illness - History of Present Illness History of Present Illness: Dr Carty PMR consultation on Israel Ibarra, born 1935 who has been admitted to [facility] for CHARISSE following an admission with left CVA and dense right HP with global aphasia. + dysphagia as well + hollis cath Review of Systems - Review of Systems Systems not reviewed;Unavailable: Other (aphasia) Past Patient History - Infectious Disease Hx of Infectious Diseases: None - Tetanus Immunizations Tetanus Immunization: Unknown - Past Medical History & Family History Past Medical History?: Yes - Past Social History Smoking Status: Former Smoker Drugs: Denies Home Situation {Lives}: With Family - CARDIAC Hx Cardiac Disorders: Yes Hx Congestive Heart Failure: Yes Hx Hypercholesterolemia: Yes Hx Hypertension: Yes - PULMONARY Hx Chronic Obstructive Pulmonary Disease (COPD): Yes - NEUROLOGICAL Hx Transient Ischemic Attacks (TIA): Yes (Per history in ~1988) - HEENT 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) Hx Cataracts: Yes (left eye) - RENAL Hx Chronic Kidney Disease: Yes - ENDOCRINE/METABOLIC Hx Diabetes Mellitus Type 2: Yes (Insuline at home) - HEMATOLOGICAL/ONCOLOGICAL Hx Blood Disorders: No - INTEGUMENTARY Hx Dermatological Problems: No - MUSCULOSKELETAL/RHEUMATOLOGICAL Hx Falls: No - GASTROINTESTINAL Hx Gastrointestinal Disorders: No - GENITOURINARY/GYNECOLOGICAL Hx Genitourinary Disorders: No - PSYCHIATRIC Hx Substance Use: No - SURGICAL HISTORY Hx Coronary Stent: Yes (x4) - ANESTHESIA Hx Anesthesia: Yes Hx Anesthesia Reactions: No Meds Allergies/Adverse Reactions: Allergies Allergy/AdvReac Type Severity Reaction Status Date / Time morphine Allergy VOMITING Verified 02/02/16 19:03 - Medications Medications: Current Medications Albuterol Sulfate (Albuterol 0.083% Inhal Bere (2.5 Mg/3 Ml) Ud) 2.5 mg IH Q6 PRN PRN Reason: Shortness of Breath Last Admin: 08/20/17 10:34 Dose: 2.5 mg Albuterol/Ipratropium (Duoneb 3 Mg/0.5 Mg (3 Ml) Ud) 3 ml INH RQID [facility] Last Admin: 08/20/17 11:28 Dose: 3 ml Amlodipine Besylate (Norvasc) 10 mg PO DAILY [facility] Last Admin: 08/20/17 08:27 Dose: 10 mg Aspirin (Aspirin Chewable) 81 mg PO DAILY [facility] Last Admin: 08/20/17 08:20 Dose: 81 mg Atorvastatin Calcium (Lipitor) 40 mg PO HS [facility] Carvedilol (Coreg) 25 mg PO Q12 [facility] Last Admin: 08/20/17 08:25 Dose: 25 mg Cholecalciferol (Vitamin D) 2,000 intlu PO DAILY [facility] Last Admin: 08/20/17 08:28 Dose: 2,000 intlu Clopidogrel Bisulfate (Plavix) 75 mg PO DAILY [facility] Last Admin: 08/20/17 08:19 Dose: 75 mg Dextrose (Dextrose 50% Inj) 0 ml IV STAT PRN; Protocol PRN Reason: Hypoglycemia Protocol Dextrose (Glutose 15) 0 gm PO ONCE PRN; Protocol PRN Reason: Hypoglycemia Protocol Ferrous Sulfate (Feosol) 325 mg PO TID [facility] Last Admin: 08/20/17 12:49 Dose: 325 mg Furosemide (Lasix) 40 mg PO DAILY [facility] Last Admin: 08/20/17 08:27 Dose: 40 mg Glucagon (Glucagen Diagnostic Kit) 0 mg IM STAT PRN; Protocol PRN Reason: Hypoglycemia Protocol Heparin Sodium (Porcine) (Heparin) 5,000 units SC Q8 [facility] PRN Reason: Protocol Last Admin: 08/20/17 05:53 Dose: 5,000 units Ertapenem 1 gm/ Sodium (Chloride) 100 mls @ 100 mls/hr IVPB DAILY [facility] PRN Reason: Protocol Stop: 08/21/17 06:00 Last Admin: 08/20/17 08:26 Dose: Not Given Ciprofloxacin (Cipro 400mg/200ml Dsw) 400 mg in 200 mls @ 200 mls/hr IVPB Q12 [facility] PRN Reason: Protocol Insulin Human Lispro (Humalog) 20 units SC BID [facility] Last Admin: 08/20/17 08:24 Dose: 20 unit Insulin Human Lispro (Humalog) 0 units SC ACHS [facility] PRN Reason: Protocol Last Admin: 08/20/17 11:30 Dose: 2 units Latanoprost (Xalatan Opht) 1 drop OU HS [facility] Last Admin: 08/19/17 21:28 Dose: 1 drop Lisinopril (Zestril) 20 mg PO DAILY [facility] Last Admin: 08/20/17 08:19 Dose: 20 mg Multivitamins/Minerals (Therapeutic-M Tab) 1 tab PO DAILY [facility] Last Admin: 08/20/17 08:19 Dose: 1 tab Ondansetron HCl (Zofran Inj) 4 mg IVP Q6 PRN PRN Reason: Nausea/Vomiting Fluticasone/Salmeterol (Advair Diskus 250/50) 1 puff IH Q12 [facility] Last Admin: 08/20/17 08:19 Dose: 1 puff Tamsulosin HCl (Flomax) 0.8 mg PO HS [facility] Last Admin: 08/19/17 21:27 Dose: 0.8 mg Physical Exam - Constitutional Appears: Non-toxic - Head Exam Head Exam: ATRAUMATIC, NORMAL INSPECTION - Eye Exam Eye Exam: EOMI - ENT Exam ENT Exam: Mucous Membranes Moist - Respiratory Exam Respiratory Exam: NORMAL BREATHING PATTERN - GI/Abdominal Exam GI & Abdominal Exam: Distended. absent: Firm - Extremities Exam Extremities exam: Negative for: calf tenderness, pedal edema - Neurological Exam Neurological exam: Alert - Expanded Neurological Exam Expanded Neurological exam: Expressive Aphasia, Receptive Aphasia, Total Aphasia Speech: Expressive Aphasia, Reseptive Aphasia, Total Aphasia Neuro motor strength exam: Left Upper Extremity: 4, Right Upper Extremity: 0, Left Lower Extremity: 4, Right Lower Extremity: 2/1 - Skin Skin Exam: Warm Results - Vital Signs Recent Vital Signs: Last Vital Signs Temp 97.3 F L 08/20/17 09:13 Pulse 78 08/20/17 09:13 Resp 20 08/20/17 09:13 BP 154/75 H 08/20/17 09:13 Pulse Ox 98 08/20/17 09:13 - Labs Labs: Laboratory Results - last 24 hr 08/19/17 08/20/17 20:51 06:06 POC Glucose (mg/dL) 192 H 173 H Assessment & Plan - Assessment and Plan (Free Text) Assessment: PT/OT to continue to help increase functional independence Team conference for d/c planning, will likely need CHARISSE Pain: controlled Vascular: no evidence of DVT GI: No evidence of constipation or diarrhea Patient is an excellent acute rehabilitation candidate and will have focused speech, PT, OT and recreational therapy to help facilitate a safe and appropriate d/c plan impairment code 01.2
[2017-08-20] MEDS ORDERED: Barium Sulfate Susp 0.1% w/v, 0.1% w/w 450 mL Bottle PO ONE (13:53)
--- NOTE | 2017-08-20 16:46 | RAD ---
PROCEDURE: Modified barium video swallow HISTORY: r/o aspiration COMPARISON: None available TECHNIQUE: A modified barium video swallow was performed in conjunction with a member of the speech therapy department. Swallowing of barium mixtures of varying viscosity was monitored fluoroscopically. FINDINGS: There was no evidence of aspiration at any point during the examination. There is no laryngeal penetration. Please see the full report from speech therapy for evaluation of the swallowing mechanism. IMPRESSION: No evidence of aspiration or laryngeal penetration. Please see full report from speech therapy.
[2017-08-20] MEDS: Latanoprost 0.005% Opht SOUTION OU SCH (21:19)
[2017-08-21 06:26] LABS: BASO % 0.4 % (0.0-2.0); EOS # 0.4 K/uL (0.0-0.7); EOS % 4.9 % (0.0-4.0); HEMOGLOBIN 9.2 g/dL (12.0-18.0); LYMPH # 1.1 K/uL (1.0-4.3); LYMPH % 13.2 % (20.0-40.0); MEAN CELL VOLUME 92.2 fl (80.0-94.0); MEAN CORPUSCULAR HEMOGLOBIN 30.8 pg (27.0-31.0); MEAN CORPUSCULAR HGB CONC 33.4 g/dL (33.0-37.0); MEAN PLATELET VOLUME 9.7 fl (7.2-11.7); MONO % 12.1 % (0.0-10.0); NEUT # 5.6 K/uL (1.8-7.0); NEUT % 69.4 % (50.0-75.0); NRBC % 0.2 % (0.0-0.0); RBC 2.97 Mil/uL (4.40-5.90); RED CELL DISTRIBUTION WIDTH 14.5 % (11.5-14.5); WHITE BLOOD COUNT 8.1 K/uL (4.8-10.8)
[2017-08-21] MEDS: Insulin Lispro (humaLOG) 100 Units/ml Inj SC SCH ×6 (06:49→21:03)
[2017-08-21] MEDS: Albuterol-Ipratrop 3 mg / 0.5 (3 ml) UD INH SCH ×4 (07:43→19:06)
[2017-08-21] MEDS: Ciprofloxacin 400mg/200ml D5W 400 MG/200 ML BAG IVPB SCH ×2 (08:01→18:48)
[2017-08-21 08:02] LABS: CALCIUM 7.9 mg/dL (8.4-10.2)
[2017-08-21] MEDS: Cholecalciferol 1,000 INTLU TAB PO SCH (08:48)
[2017-08-21] MEDS: Multivitamin With Minerals Tab PO SCH (08:49)
[2017-08-21] MEDS: Fluticasone-Salmeterol 250-50mcg Diskus IH SCH ×2 (08:49→20:55)
--- NOTE | 2017-08-21 10:45 | CP.PCM.CON ---
History of Present Illness - History of Present Illness History of Present Illness: Mr. Fred Banegas is a 82 YO male with PMHx of Diastolic Heart Failure, COPD, CAD s/p stent x 4, CKD, DM2 on insulin, HTN, HLD, Colon CA s/p surgery (1961), TIA/CVA (1988), left eye blindness/diabetic retinopathy, acute stroke x 2 is admitted to acute rehab for therapy post stroke. On admission, pt was found to have an acute stroke in L temporal/occipital junction. Admission was complicated by subsequent stroke in L frontal lobe, pt was hypoxic requiring intubation and was found to have a RUL pneumonia. Pt was extubated 08/15, and remains stable clinically, on abx, with residual R sided weakness, aphasia. Per ID, will cont IV ertapenem for two more days for a total of 5 day therapy. Today, pt is hemodynamically stable, able to communicate via nodding. Denies headache, blurry vision, chest pain, dyspnea, nausea, dizziness, nausea, or vomiting. He was transferred to acute rehab to continue therapies. Review of Systems - Review of Systems All systems: reviewed and no additional remarkable complaints except - EENT Additional comments: aphasia Past Patient History - Infectious Disease Hx of Infectious Diseases: None - Tetanus Immunizations Tetanus Immunization: Unknown - Past Medical History & Family History Past Medical History?: Yes - Past Social History Smoking Status: Former Smoker Drugs: Denies Home Situation {Lives}: With Family - CARDIAC Hx Cardiac Disorders: Yes Hx Congestive Heart Failure: Yes Hx Hypercholesterolemia: Yes Hx Hypertension: Yes - PULMONARY Hx Chronic Obstructive Pulmonary Disease (COPD): Yes - NEUROLOGICAL Hx Transient Ischemic Attacks (TIA): Yes (Per history in ~1988) - HEENT 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) Hx Cataracts: Yes (left eye) - RENAL Hx Chronic Kidney Disease: Yes - ENDOCRINE/METABOLIC Hx Diabetes Mellitus Type 2: Yes (Insuline at home) - HEMATOLOGICAL/ONCOLOGICAL Hx Blood Disorders: No - INTEGUMENTARY Hx Dermatological Problems: No - MUSCULOSKELETAL/RHEUMATOLOGICAL Hx Falls: No - GASTROINTESTINAL Hx Gastrointestinal Disorders: No - GENITOURINARY/GYNECOLOGICAL Hx Genitourinary Disorders: No - PSYCHIATRIC Hx Substance Use: No - SURGICAL HISTORY Hx Coronary Stent: Yes (x4) - ANESTHESIA Hx Anesthesia: Yes Hx Anesthesia Reactions: No Meds Allergies/Adverse Reactions: Allergies Allergy/AdvReac Type Severity Reaction Status Date / Time morphine Allergy VOMITING Verified 02/02/16 19:03 - Medications Medications: Current Medications Albuterol Sulfate (Albuterol 0.083% Inhal Bere (2.5 Mg/3 Ml) Ud) 2.5 mg IH Q6 PRN PRN Reason: Shortness of Breath Last Admin: 08/20/17 10:34 Dose: 2.5 mg Albuterol/Ipratropium (Duoneb 3 Mg/0.5 Mg (3 Ml) Ud) 3 ml INH RQID [facility] Last Admin: 08/21/17 07:43 Dose: 3 ml Amlodipine Besylate (Norvasc) 10 mg PO DAILY [facility] Last Admin: 08/21/17 08:47 Dose: 10 mg Aspirin (Aspirin Chewable) 81 mg PO DAILY [facility] Last Admin: 08/21/17 08:49 Dose: 81 mg Atorvastatin Calcium (Lipitor) 40 mg PO HS [facility] Carvedilol (Coreg) 25 mg PO Q12 [facility] Last Admin: 08/21/17 08:49 Dose: 25 mg Cholecalciferol (Vitamin D) 2,000 intlu PO DAILY [facility] Last Admin: 08/21/17 08:48 Dose: 2,000 intlu Clopidogrel Bisulfate (Plavix) 75 mg PO DAILY [facility] Last Admin: 08/21/17 08:49 Dose: 75 mg Dextrose (Dextrose 50% Inj) 0 ml IV STAT PRN; Protocol PRN Reason: Hypoglycemia Protocol Dextrose (Glutose 15) 0 gm PO ONCE PRN; Protocol PRN Reason: Hypoglycemia Protocol Ferrous Sulfate (Feosol) 325 mg PO TID [facility] Last Admin: 08/21/17 08:48 Dose: 325 mg Furosemide (Lasix) 40 mg PO DAILY [facility] Last Admin: 08/21/17 08:48 Dose: 40 mg Glucagon (Glucagen Diagnostic Kit) 0 mg IM STAT PRN; Protocol PRN Reason: Hypoglycemia Protocol Heparin Sodium (Porcine) (Heparin) 5,000 units SC Q8 [facility] PRN Reason: Protocol Last Admin: 08/21/17 05:54 Dose: 5,000 units Ciprofloxacin (Cipro 400mg/200ml Dsw) 400 mg in 200 mls @ 200 mls/hr IVPB Q12@ 0700,1900 [facility] PRN Reason: Protocol Insulin Human Lispro (Humalog) 0 units SC ACHS [facility] PRN Reason: Protocol Last Admin: 08/21/17 06:49 Dose: Not Given Insulin Human Lispro (Humalog) 20 units SC BID@0730,1700 [facility] Latanoprost (Xalatan Opht) 1 drop OU HS [facility] Last Admin: 08/20/17 21:19 Dose: 1 drop Lisinopril (Zestril) 20 mg PO DAILY [facility] Last Admin: 08/21/17 08:48 Dose: 20 mg Multivitamins/Minerals (Therapeutic-M Tab) 1 tab PO DAILY [facility] Last Admin: 08/21/17 08:49 Dose: 1 tab Ondansetron HCl (Zofran Inj) 4 mg IVP Q6 PRN PRN Reason: Nausea/Vomiting Fluticasone/Salmeterol (Advair Diskus 250/50) 1 puff IH Q12 [facility] Last Admin: 08/21/17 08:49 Dose: 1 puff Tamsulosin HCl (Flomax) 0.8 mg PO [facility] Last Admin: 08/20/17 21:17 Dose: 0.8 mg Physical Exam - Constitutional Appears: No Acute Distress - Head Exam Head Exam: NORMAL INSPECTION - Eye Exam Eye Exam: EOMI, Normal appearance, PERRL Pupil Exam: NORMAL ACCOMODATION, PERRL - ENT Exam ENT Exam: Mucous Membranes Moist, Normal Exam - Neck Exam Neck exam: Positive for: Normal Inspection - Respiratory Exam Respiratory Exam: Rales - Cardiovascular Exam Cardiovascular Exam: +S1, +S2 - GI/Abdominal Exam GI & Abdominal Exam: Normal Bowel Sounds, Soft. absent: Tenderness - Exam Additional comments: with catheter connected to a leg bag, draining to a yellow urine. - Neurological Exam Neurological exam: Alert - Expanded Neurological Exam Expanded Speech: Expressive Aphasia Cranial nerves: EOM's Intact: Normal, Facial Palsey w/o Forehead Movement: Abnormal Right, Facial Sensation: Abnormal Right, Gag Reflex: Abnormal Right, Nystagmus: Normal, Tongue Deviation: Abnormal Right Cerebellar Function: Finger to Nose: Abnormal Right, Heel to Santana: Abnormal Right, Romberg: Abnormal Right (unable to stand without maximum assist) Upper motor neuron: Pronator Drift: Abnormal Right, Sensory Extinction: Abnormal Right Sensory exam: Lower Extremity 2 Point Discrimination: Abnormal Right, Lower Extremity Light Touch: Normal, Lower Extremity Pin Prick: Normal, Lower Extremity Temperature: Normal, Upper Extremity 2 Point Discrimination: Normal, Abnormal Right, Upper Extremity Light Touch: Normal, Upper Extremity Pin Prick: Normal, Upper Extremity Temperature: Normal Neuro motor strength exam: Left Upper Extremity: 5, Right Upper Extremity: 2/1, Left Lower Extremity: 5, Right Lower Extremity: 2/1 Results - Vital Signs Recent Vital Signs: Last Vital Signs Temp 98.2 F 08/21/17 09:59 Pulse 70 08/21/17 09:59 Resp 20 08/21/17 09:59 BP 143/63 08/21/17 09:59 Pulse Ox 100 08/21/17 09:59 - Labs Result Diagrams: 08/21/17 05:20 08/21/17 05:20 Labs: Laboratory Results - last 24 hr 08/20/17 08/20/17 08/20/17 11:20 17:00 20:48 WBC RBC Hgb Hct MCV MCH MCHC RDW Plt Count MPV Neut % (Auto) Lymph % (Auto) [place] % (Auto) Eos % (Auto) Baso % (Auto) Neut # (Auto) Lymph # (Auto) [place] # (Auto) Eos # (Auto) Baso # (Auto) Sodium Potassium Chloride Carbon Dioxide Anion Gap BUN Creatinine Est GFR ( Amer) Est GFR (Non-Af Amer) POC Glucose (mg/dL) 165 H 138 H 157 H Random Glucose Calcium 08/21/17 08/21/17 08/21/17 05:15 05:20 05:20 WBC 8.1 RBC 2.97 L Hgb 9.2 L Hct 27.4 L MCV 92.2 D MCH 30.8 MCHC 33.4 RDW 14.5 Plt Count 310 MPV 9.7 Neut % (Auto) 69.4 Lymph % (Auto) 13.2 L [place] % (Auto) 12.1 H Eos % (Auto) 4.9 H Baso % (Auto) 0.4 Neut # (Auto) 5.6 Lymph # (Auto) 1.1 [place] # (Auto) 1.0 H Eos # (Auto) 0.4 Baso # (Auto) 0.0 Sodium 139 Potassium 4.8 Chloride 110 H Carbon Dioxide 25 Anion Gap 9 L BUN 18 Creatinine 1.8 H Est GFR ( Amer) 44 Est GFR (Non-Af Amer) 36 POC Glucose (mg/dL) 136 H Random Glucose 130 H Calcium 7.9 L Assessment & Plan (1) Ischemic stroke Assessment and Plan: Mr. Fred Banegas is a 82 YO male with PMHx of Diastolic Heart Failure, COPD, CAD s/p stent x 4, CKD, DM2 on insulin, HTN, HLD, Colon CA s/p surgery (1961), TIA/CVA (1988), left eye blindness/diabetic retinopathy, acute stroke x 2 is admitted to acute rehab for therapy post stroke. Case discussed with Dr. Vaughn, recommend the followin. PT, OT, ST eval and treat 2.Continue aspirin 81 mg PO Daily and Plavix 75 mg PO Daily 3. continue statin keeping LDL < 70, Lipitor 40 mg PO daily 4. Blood pressure and glycemic control, hydration 5. Keep head of bed elevated at least 30 degrees angle when in bed. Thank You. Status: Acute
--- NOTE | 2017-08-21 13:13 | CP.PCM.PN ---
Subjective - Date & Time of Evaluation Date of Evaluation: 08/21/17 Time of Evaluation: 13:10 - Subjective Subjective: No acute overnight events. Pt was seen working with PT this AM. Denies chest pain, headache, blurry vision, dizziness and remains afebrile. Objective - Vital Signs/Intake and Output Vital Signs (last 24 hours): Temp Pulse Resp BP Pulse Ox 98.2 F 70 20 143/63 100 08/21/17 09:59 08/21/17 09:59 08/21/17 09:59 08/21/17 09:59 08/21/17 09:59 Intake and Output: 08/21/17 08/21/17 06:59 18:59 Output Total 150 Balance -150 - Medications Medications: Current Medications Albuterol Sulfate (Albuterol 0.083% Inhal Bere (2.5 Mg/3 Ml) Ud) 2.5 mg IH Q6 PRN PRN Reason: Shortness of Breath Last Admin: 08/20/17 10:34 Dose: 2.5 mg Albuterol/Ipratropium (Duoneb 3 Mg/0.5 Mg (3 Ml) Ud) 3 ml INH RQID [facility] Last Admin: 08/21/17 11:08 Dose: 3 ml Amlodipine Besylate (Norvasc) 10 mg PO DAILY [facility] Last Admin: 08/21/17 08:47 Dose: 10 mg Aspirin (Aspirin Chewable) 81 mg PO DAILY [facility] Last Admin: 08/21/17 08:49 Dose: 81 mg Atorvastatin Calcium (Lipitor) 40 mg PO HS [facility] Carvedilol (Coreg) 25 mg PO Q12 [facility] Last Admin: 08/21/17 08:49 Dose: 25 mg Cholecalciferol (Vitamin D) 2,000 intlu PO DAILY [facility] Last Admin: 08/21/17 08:48 Dose: 2,000 intlu Clopidogrel Bisulfate (Plavix) 75 mg PO DAILY [facility] Last Admin: 08/21/17 08:49 Dose: 75 mg Dextrose (Dextrose 50% Inj) 0 ml IV STAT PRN; Protocol PRN Reason: Hypoglycemia Protocol Dextrose (Glutose 15) 0 gm PO ONCE PRN; Protocol PRN Reason: Hypoglycemia Protocol Ferrous Sulfate (Feosol) 325 mg PO TID [facility] Last Admin: 08/21/17 12:56 Dose: 325 mg Furosemide (Lasix) 40 mg PO DAILY [facility] Last Admin: 08/21/17 08:48 Dose: 40 mg Glucagon (Glucagen Diagnostic Kit) 0 mg IM STAT PRN; Protocol PRN Reason: Hypoglycemia Protocol Heparin Sodium (Porcine) (Heparin) 5,000 units SC Q8 [facility] PRN Reason: Protocol Last Admin: 08/21/17 13:05 Dose: 5,000 units Ciprofloxacin (Cipro 400mg/200ml Dsw) 400 mg in 200 mls @ 200 mls/hr IVPB Q12@ 0700,1900 [facility] PRN Reason: Protocol Insulin Human Lispro (Humalog) 0 units SC ACHS [facility] PRN Reason: Protocol Last Admin: 08/21/17 12:00 Dose: Not Given Insulin Human Lispro (Humalog) 20 units SC BID@0730,1700 [facility] Latanoprost (Xalatan Opht) 1 drop OU HS [facility] Last Admin: 08/20/17 21:19 Dose: 1 drop Lisinopril (Zestril) 20 mg PO DAILY [facility] Last Admin: 08/21/17 08:48 Dose: 20 mg Multivitamins/Minerals (Therapeutic-M Tab) 1 tab PO DAILY [facility] Last Admin: 08/21/17 08:49 Dose: 1 tab Ondansetron HCl (Zofran Inj) 4 mg IVP Q6 PRN PRN Reason: Nausea/Vomiting Fluticasone/Salmeterol (Advair Diskus 250/50) 1 puff IH Q12 [facility] Last Admin: 08/21/17 08:49 Dose: 1 puff Tamsulosin HCl (Flomax) 0.8 mg PO HS [facility] Last Admin: 08/20/17 21:17 Dose: 0.8 mg - Labs Labs: 08/21/17 05:20 08/21/17 05:20 - Constitutional Appears: No Acute Distress, Other (aphasic, R sided facial droop ) - Head Exam Head Exam: NORMAL INSPECTION - Respiratory Exam Respiratory Exam: Clear to Ausculation Bilateral, NORMAL BREATHING PATTERN. absent: Wheezes - Cardiovascular Exam Cardiovascular Exam: REGULAR RHYTHM, +S1, +S2 - GI/Abdominal Exam GI & Abdominal Exam: Soft, Normal Bowel Sounds. absent: Tenderness - Exam Exam: NORMAL INSPECTION (no scrotal edema, hollis intact ) - Extremities Exam Extremities Exam: absent: Calf Tenderness, Pedal Edema Additional comments: Moving Left upper and lower extremity No mobility in RUE Moving both lower extremities L>R - Neurological Exam Neurological Exam: Alert, Awake Assessment and Plan - Assessment and Plan (Free Text) Assessment: Assessment/Plan: 82 YO male with PMHz of Diastolic HF, COPD, CAD s/p stent x 4, CKD, DM2 on insulin, HTN, HLD, Colon CA s/p surgery (1961), TIA/CVA (1988), left eye blindness/diabetic retinopathy, stroke x 2 (L temporal/occipital and L frontal lobe) is admitted to rehab for further therapy. Acute Stroke, L temporal/occipital junction (08/12) and acute infract L frontal lobe (08/13) -Neuro on board; cont meds; Continue all current medical, PT/OT. Recommend starting with electrical stimulation of the right side. If the patient further declines with mental status, to repeat CT scan of the head without contrast. -passes swallow eval post extubation -c/w Aspirin and Plavix -c/w modified dysphagia diet UTI -UA 08/20 back; sig for trace leukes and WBC -culture 08/19 neg -c/w cipro 400 Q12 x 14 days D2/ -will repeat follow up UA post treatment Urinary retention -likely 2/2 acute stroke -c/w flomax 0.8mg -will d/c hollis today -monitor output Pneumonia, RUL -resolved -likely aspiration pneumonia -cultures appreciated -Seen by ID; Per culture serratia, last day Ertapenem (D5/5) -s/p Zosyn (D4) HTN - Uncontrolled -improving -C/w Lisinopril 10daily, 10mg Norvasc, Carvidilol 25mg BID -renal ultrasounds as outpatient -Monitor BP closely Low vitamin D -Vit D level <12.8 -c/w 2000mg vit D daily CAD s/p stent x 4 -EKG: Sinus bradycardia with occasional premature ventricular complexes, Left ventricular hypertrophy with repolarization abnormality -echo normal LV, EF 55-60% -c/w Coreg, Statin, ASA and plavix History of Diastolic HF -Last ECHO from 11/2013 --> Normal LV syst function; Concentric LVH; Impaired Diastolic function -echo normal LV, EF 55-60% -Continue Lipitor 40 mg, ASA 81mg -Out patient Cardiology: Dr. Carlos DM2 on insulin -C/w Home insulin -Correction scale -HBA1C 9.2 DVT PPX -c/w heparin
[2017-08-21] MEDS: Lactobacillus Acidophilus 500 MU Cap PO SCH (18:00)
[2017-08-21] MEDS: Latanoprost 0.005% Opht SOUTION OU SCH (21:23)
[2017-08-22] MEDS: Albuterol 0.083% Inhal Sol (2.5 mg/3 mL) UD IH PRN (05:51)
[2017-08-22] MEDS: Ciprofloxacin 400mg/200ml D5W 400 MG/200 ML BAG IVPB SCH ×2 (06:04→18:30)
[2017-08-22] MEDS ORDERED: Sodium Chloride 0.9% 500 ML IV SCH (06:45)
[2017-08-22] MEDS: Albuterol-Ipratrop 3 mg / 0.5 (3 ml) UD INH SCH ×4 (07:21→19:25)
[2017-08-22] MEDS: Insulin Lispro (humaLOG) 100 Units/ml Inj SC SCH ×6 (07:33→21:49)
[2017-08-22] MEDS: Fluticasone-Salmeterol 250-50mcg Diskus IH SCH ×2 (08:31→21:47)
[2017-08-22] MEDS: Lactobacillus Acidophilus 500 MU Cap PO SCH ×2 (08:32→17:10)
[2017-08-22] MEDS: Cholecalciferol 1,000 INTLU TAB PO SCH (08:33)
[2017-08-22] MEDS: Multivitamin With Minerals Tab PO SCH (08:33)
--- NOTE | 2017-08-22 12:22 | CP.PCM.PN ---
Subjective - Date & Time of Evaluation Date of Evaluation: 08/22/17 Time of Evaluation: 12:19 - Subjective Subjective: Mr. Fred Banegas was seen and examined at the bedside. He remains aphasic, awake, uses non-verbal cues to communicate his needs to staff. He is able to follow some commands.. He remains with right facial droop, right side weakness, tolerating therapy sessions. He had an episode of vomiting early this morning, zofran was given with relief. Objective - Vital Signs/Intake and Output Vital Signs (last 24 hours): Temp Pulse Resp BP Pulse Ox 99 F 76 20 142/55 L 97 08/22/17 09:21 08/22/17 09:21 08/22/17 09:21 08/22/17 09:21 08/22/17 09:21 Intake and Output: 08/22/17 08/22/17 06:59 18:59 Intake Total 450 Output Total 400 Balance 50 - Medications Medications: Current Medications Albuterol Sulfate (Albuterol 0.083% Inhal Bere (2.5 Mg/3 Ml) Ud) 2.5 mg IH Q6 PRN PRN Reason: Shortness of Breath Last Admin: 08/22/17 05:51 Dose: 2.5 mg Albuterol/Ipratropium (Duoneb 3 Mg/0.5 Mg (3 Ml) Ud) 3 ml INH RQID [facility] Last Admin: 08/22/17 11:35 Dose: Not Given Amlodipine Besylate (Norvasc) 10 mg PO DAILY [facility] Last Admin: 08/22/17 08:33 Dose: 10 mg Aspirin (Aspirin Chewable) 81 mg PO DAILY [facility] Last Admin: 08/22/17 08:34 Dose: 81 mg Atorvastatin Calcium (Lipitor) 40 mg PO HS [facility] Last Admin: 08/21/17 21:02 Dose: 40 mg Carvedilol (Coreg) 25 mg PO Q12 [facility] Last Admin: 08/22/17 08:34 Dose: 25 mg Cholecalciferol (Vitamin D) 2,000 intlu PO DAILY [facility] Last Admin: 08/22/17 08:33 Dose: 2,000 intlu Clopidogrel Bisulfate (Plavix) 75 mg PO DAILY [facility] Last Admin: 08/22/17 08:32 Dose: 75 mg Dextrose (Dextrose 50% Inj) 0 ml IV STAT PRN; Protocol PRN Reason: Hypoglycemia Protocol Dextrose (Glutose 15) 0 gm PO ONCE PRN; Protocol PRN Reason: Hypoglycemia Protocol Ferrous Sulfate (Feosol) 325 mg PO TID [facility] Last Admin: 08/22/17 08:33 Dose: 325 mg Furosemide (Lasix) 40 mg PO DAILY [facility] Last Admin: 08/22/17 08:32 Dose: 40 mg Glucagon (Glucagen Diagnostic Kit) 0 mg IM STAT PRN; Protocol PRN Reason: Hypoglycemia Protocol Heparin Sodium (Porcine) (Heparin) 5,000 units SC Q8 [facility] PRN Reason: Protocol Last Admin: 08/22/17 05:55 Dose: 5,000 units Ciprofloxacin (Cipro 400mg/200ml Dsw) 400 mg in 200 mls @ 200 mls/hr IVPB Q12@ 0700,1900 [facility] PRN Reason: Protocol Last Admin: 08/22/17 06:04 Dose: 200 mls/hr Insulin Human Lispro (Humalog) 0 units SC ACHS [facility] PRN Reason: Protocol Last Admin: 08/22/17 07:33 Dose: Not Given Insulin Human Lispro (Humalog) 20 units SC BID@0730,1700 [facility] Last Admin: 08/22/17 08:00 Dose: 20 u Lactobacillus Acidophilus (Bacid Acidophilus) 1 cap PO BID [facility] Last Admin: 08/22/17 08:32 Dose: 1 cap Latanoprost (Xalatan Opht) 1 drop OU HS [facility] Last Admin: 08/21/17 21:23 Dose: 1 drop Lisinopril (Zestril) 20 mg PO DAILY [facility] Last Admin: 08/22/17 08:35 Dose: 20 mg Multivitamins/Minerals (Therapeutic-M Tab) 1 tab PO DAILY [facility] Last Admin: 08/22/17 08:33 Dose: 1 tab Ondansetron HCl (Zofran Inj) 4 mg IVP Q6 PRN PRN Reason: Nausea/Vomiting Last Admin: 08/22/17 05:54 Dose: 4 mg Fluticasone/Salmeterol (Advair Diskus 250/50) 1 puff IH Q12 [facility] Last Admin: 08/22/17 08:31 Dose: 1 puff Sennosides (Senokot Tab) 17.2 mg PO HS [facility] Last Admin: 08/21/17 21:05 Dose: 17.2 mg Tamsulosin HCl (Flomax) 0.8 mg PO HS [facility] Last Admin: 08/21/17 21:01 Dose: 0.8 mg - Labs Labs: 08/21/17 05:20 08/21/17 05:20 - Constitutional Appears: No Acute Distress - Head Exam Head Exam: NORMAL INSPECTION - Neurological Exam Neurological Exam: Awake Neuro motor strength exam: Left Upper Extremity: 5, Right Upper Extremity: 2/1, Left Lower Extremity: 5, Right Lower Extremity: 3 Additional comments: neurological unchanged from previous examination. Assessment and Plan (1) Ischemic stroke Assessment & Plan: Case discussed with Dr. Vaughn, continue all current medical, physical, and occupational therapies. Recommend Blood pressure and glycemic control, hydration , Keep head of bed elevated at least 30 degrees angle when in bed. Status: Acute
--- NOTE | 2017-08-22 17:42 | CP.PCM.PN ---
Subjective - Date & Time of Evaluation Date of Evaluation: 08/22/17 Time of Evaluation: 17:41 - Subjective Subjective: Israel Ibarra, born 1935 who has been admitted to [facility] for acute inpatient rehabilitation following an admission with left CVA and dense right HP with global aphasia. + dysphagia as well + hollis cath He is not yet able to ambulate dense right HP no calf tenderness or swelling continue with current care hollis draining clear Objective - Vital Signs/Intake and Output Vital Signs (last 24 hours): Temp Pulse Resp BP Pulse Ox 99 F 76 20 142/55 L 97 08/22/17 09:21 08/22/17 09:21 08/22/17 09:21 08/22/17 09:21 08/22/17 09:21 Intake and Output: 08/22/17 08/22/17 06:59 18:59 Intake Total 450 Output Total 400 Balance 50 - Medications Medications: Current Medications Albuterol Sulfate (Albuterol 0.083% Inhal Bere (2.5 Mg/3 Ml) Ud) 2.5 mg IH Q6 PRN PRN Reason: Shortness of Breath Last Admin: 08/22/17 05:51 Dose: 2.5 mg Albuterol/Ipratropium (Duoneb 3 Mg/0.5 Mg (3 Ml) Ud) 3 ml INH RQID [facility] Last Admin: 08/22/17 15:18 Dose: 3 ml Amlodipine Besylate (Norvasc) 10 mg PO DAILY [facility] Last Admin: 08/22/17 08:33 Dose: 10 mg Aspirin (Aspirin Chewable) 81 mg PO DAILY [facility] Last Admin: 08/22/17 08:34 Dose: 81 mg Atorvastatin Calcium (Lipitor) 40 mg PO HS [facility] Last Admin: 08/21/17 21:02 Dose: 40 mg Carvedilol (Coreg) 25 mg PO Q12 [facility] Last Admin: 08/22/17 08:34 Dose: 25 mg Cholecalciferol (Vitamin D) 2,000 intlu PO DAILY [facility] Last Admin: 08/22/17 08:33 Dose: 2,000 intlu Clopidogrel Bisulfate (Plavix) 75 mg PO DAILY [facility] Last Admin: 08/22/17 08:32 Dose: 75 mg Dextrose (Dextrose 50% Inj) 0 ml IV STAT PRN; Protocol PRN Reason: Hypoglycemia Protocol Dextrose (Glutose 15) 0 gm PO ONCE PRN; Protocol PRN Reason: Hypoglycemia Protocol Ferrous Sulfate (Feosol) 325 mg PO TID [facility] Last Admin: 08/22/17 17:11 Dose: 325 mg Finasteride (Proscar) 5 mg PO DAILY [facility] Furosemide (Lasix) 40 mg PO DAILY [facility] Last Admin: 08/22/17 08:32 Dose: 40 mg Glucagon (Glucagen Diagnostic Kit) 0 mg IM STAT PRN; Protocol PRN Reason: Hypoglycemia Protocol Heparin Sodium (Porcine) (Heparin) 5,000 units SC Q8 [facility] PRN Reason: Protocol Last Admin: 08/22/17 14:05 Dose: 5,000 units Ciprofloxacin (Cipro 400mg/200ml Dsw) 400 mg in 200 mls @ 200 mls/hr IVPB Q12@ 0700,1900 [facility] PRN Reason: Protocol Last Admin: 08/22/17 06:04 Dose: 200 mls/hr Insulin Human Lispro (Humalog) 0 units SC ACHS [facility] PRN Reason: Protocol Last Admin: 08/22/17 17:12 Dose: Not Given Insulin Human Lispro (Humalog) 20 units SC BID@0730,1700 [facility] Last Admin: 08/22/17 17:10 Dose: 20 u Lactobacillus Acidophilus (Bacid Acidophilus) 1 cap PO BID [facility] Last Admin: 08/22/17 17:10 Dose: 1 cap Latanoprost (Xalatan Opht) 1 drop OU HS [facility] Last Admin: 08/21/17 21:23 Dose: 1 drop Lisinopril (Zestril) 20 mg PO DAILY [facility] Last Admin: 08/22/17 08:35 Dose: 20 mg Multivitamins/Minerals (Therapeutic-M Tab) 1 tab PO DAILY [facility] Last Admin: 08/22/17 08:33 Dose: 1 tab Ondansetron HCl (Zofran Inj) 4 mg IVP Q6 PRN PRN Reason: Nausea/Vomiting Last Admin: 08/22/17 05:54 Dose: 4 mg Fluticasone/Salmeterol (Advair Diskus 250/50) 1 puff IH Q12 [facility] Last Admin: 08/22/17 08:31 Dose: 1 puff Sennosides (Senokot Tab) 17.2 mg PO HS [facility] Last Admin: 08/21/17 21:05 Dose: 17.2 mg Tamsulosin HCl (Flomax) 0.8 mg PO [facility] Last Admin: 08/21/17 21:01 Dose: 0.8 mg - Labs Labs: 08/21/17 05:20 08/21/17 05:20
[2017-08-22] MEDS: Latanoprost 0.005% Opht SOUTION OU SCH (22:56)
[2017-08-23] MEDS: Albuterol 0.083% Inhal Sol (2.5 mg/3 mL) UD IH PRN (03:38)
[2017-08-23] MEDS: Ciprofloxacin 400mg/200ml D5W 400 MG/200 ML BAG IVPB SCH ×2 (06:24→19:05)
[2017-08-23] MEDS: Albuterol-Ipratrop 3 mg / 0.5 (3 ml) UD INH SCH ×4 (07:26→19:10)
--- NOTE | 2017-08-23 07:39 | CP.PCM.PN ---
Subjective - Date & Time of Evaluation Date of Evaluation: 08/23/17 Time of Evaluation: 07:39 - Subjective Subjective: No acute overnight events. Pt was seen working in PT, looks happy. Family present by bedside. Denies dyspnea, chest pain, headache, blurry vision. Objective - Vital Signs/Intake and Output Vital Signs (last 24 hours): Temp Pulse Resp BP Pulse Ox 98.2 F 64 20 138/60 98 08/22/17 20:00 08/22/17 21:27 08/22/17 20:00 08/22/17 21:27 08/22/17 20:00 - Medications Medications: Current Medications Albuterol Sulfate (Albuterol 0.083% Inhal Bere (2.5 Mg/3 Ml) Ud) 2.5 mg IH Q6 PRN PRN Reason: Shortness of Breath Last Admin: 08/23/17 03:38 Dose: 2.5 mg Albuterol/Ipratropium (Duoneb 3 Mg/0.5 Mg (3 Ml) Ud) 3 ml INH RQID [facility] Last Admin: 08/23/17 07:26 Dose: 3 ml Amlodipine Besylate (Norvasc) 10 mg PO DAILY [facility] Last Admin: 08/22/17 08:33 Dose: 10 mg Aspirin (Aspirin Chewable) 81 mg PO DAILY [facility] Last Admin: 08/22/17 08:34 Dose: 81 mg Atorvastatin Calcium (Lipitor) 40 mg PO HS [facility] Last Admin: 08/22/17 21:27 Dose: 40 mg Carvedilol (Coreg) 25 mg PO Q12 [facility] Last Admin: 08/22/17 21:27 Dose: 25 mg Cholecalciferol (Vitamin D) 2,000 intlu PO DAILY [facility] Last Admin: 08/22/17 08:33 Dose: 2,000 intlu Clopidogrel Bisulfate (Plavix) 75 mg PO DAILY [facility] Last Admin: 08/22/17 08:32 Dose: 75 mg Dextrose (Dextrose 50% Inj) 0 ml IV STAT PRN; Protocol PRN Reason: Hypoglycemia Protocol Dextrose (Glutose 15) 0 gm PO ONCE PRN; Protocol PRN Reason: Hypoglycemia Protocol Ferrous Sulfate (Feosol) 325 mg PO TID [facility] Last Admin: 08/22/17 17:11 Dose: 325 mg Finasteride (Proscar) 5 mg PO DAILY [facility] Furosemide (Lasix) 40 mg PO DAILY [facility] Last Admin: 08/22/17 08:32 Dose: 40 mg Glucagon (Glucagen Diagnostic Kit) 0 mg IM STAT PRN; Protocol PRN Reason: Hypoglycemia Protocol Heparin Sodium (Porcine) (Heparin) 5,000 units SC Q8 [facility] PRN Reason: Protocol Last Admin: 08/23/17 06:00 Dose: 5,000 units Ciprofloxacin (Cipro 400mg/200ml Dsw) 400 mg in 200 mls @ 200 mls/hr IVPB Q12@ 0700,1900 [facility] PRN Reason: Protocol Last Admin: 08/23/17 06:24 Dose: 200 mls/hr Insulin Human Lispro (Humalog) 0 units SC ACHS [facility] PRN Reason: Protocol Last Admin: 08/22/17 21:49 Dose: Not Given Insulin Human Lispro (Humalog) 20 units SC BID@0730,1700 [facility] Last Admin: 08/22/17 17:10 Dose: 20 u Lactobacillus Acidophilus (Bacid Acidophilus) 1 cap PO BID [facility] Last Admin: 08/22/17 17:10 Dose: 1 cap Latanoprost (Xalatan Opht) 1 drop OU HS [facility] Last Admin: 08/22/17 22:56 Dose: 1 drop Lisinopril (Zestril) 20 mg PO DAILY [facility] Last Admin: 08/22/17 08:35 Dose: 20 mg Multivitamins/Minerals (Therapeutic-M Tab) 1 tab PO DAILY [facility] Last Admin: 08/22/17 08:33 Dose: 1 tab Ondansetron HCl (Zofran Inj) 4 mg IVP Q6 PRN PRN Reason: Nausea/Vomiting Last Admin: 08/22/17 05:54 Dose: 4 mg Fluticasone/Salmeterol (Advair Diskus 250/50) 1 puff IH Q12 [facility] Last Admin: 08/22/17 21:47 Dose: 1 puff Sennosides (Senokot Tab) 17.2 mg PO HS [facility] Last Admin: 08/22/17 21:27 Dose: 17.2 mg Tamsulosin HCl (Flomax) 0.8 mg PO HS [facility] Last Admin: 08/22/17 21:27 Dose: 0.8 mg - Labs Labs: 08/21/17 05:20 08/21/17 05:20 - Constitutional Appears: No Acute Distress, Other (NC on 2L, R sided facial droop, Aphasic ) - Head Exam Head Exam: NORMAL INSPECTION - Eye Exam Eye Exam: EOMI - ENT Exam ENT Exam: Mucous Membranes Moist - Respiratory Exam Respiratory Exam: Rhonchi (in the lower lobes ), Wheezes (mild expiratory wheezing ), NORMAL BREATHING PATTERN. absent: Rales - Cardiovascular Exam Cardiovascular Exam: REGULAR RHYTHM, +S1, +S2 - GI/Abdominal Exam GI & Abdominal Exam: Soft, Normal Bowel Sounds. absent: Tenderness - Extremities Exam Extremities Exam: Normal Inspection. absent: Calf Tenderness, Pedal Edema Additional comments: Full ROM L side Improving in strength in RLE and RUE - Neurological Exam Neurological Exam: Alert, Awake - Psychiatric Exam Psychiatric exam: Normal Affect, Normal Mood Assessment and Plan - Assessment and Plan (Free Text) Assessment: Assessment/Plan: 82 YO male with PMHz of Diastolic HF, COPD, CAD s/p stent x 4, CKD, DM2 on insulin, HTN, HLD, Colon CA s/p surgery (1961), TIA/CVA (1988), left eye blindness/diabetic retinopathy, stroke x 2 (L temporal/occipital and L frontal lobe) is admitted to rehab for further therapy. Acute Stroke, L temporal/occipital junction (08/12) and acute infract L frontal lobe (08/13) -Neuro on board; cont meds; If the patient further declines with mental status, to repeat CT scan of the head without contrast. -c/w Aspirin and Plavix -c/w modified dysphagia diet -acute rehab UTI -UA 08/20 back; sig for trace leukes and WBC -culture 08/19 neg -c/w cipro 400 Q12 x 14 days D3/14 Urinary retention -likely 2/2 acute stroke, with BPH -c/w flomax 0.8mg, Finestride -cont hollis -will need outpatient urology DM2 on insulin -low sugars will correct insulin from 20BID to 18U BID -Correction scale -cont to monitor HTN -controlled -C/w Lisinopril 10daily, 10mg Norvasc, Carvidilol 25mg BID Low vitamin D -Vit D level <12.8 -c/w 2000mg vit D daily CAD s/p stent x 4 -EKG: Sinus bradycardia with occasional premature ventricular complexes, Left ventricular hypertrophy with repolarization abnormality -echo normal LV, EF 55-60% -c/w Coreg, Statin, ASA and plavix History of Diastolic HF -Last ECHO from 11/2013 --> Normal LV syst function; Concentric LVH; Impaired Diastolic function -echo normal LV, EF 55-60% -Continue Lipitor 40 mg, ASA 81mg -Out patient Cardiology: Dr. Carlos DVT PPX -c/w heparin
[2017-08-23] MEDS: Insulin Lispro (humaLOG) 100 Units/ml Inj SC SCH ×7 (07:50→21:24)
[2017-08-23] MEDS ORDERED: Insulin Lispro (humaLOG) 100 Units/ml Inj SC SCH (08:18)
[2017-08-23] MEDS: Fluticasone-Salmeterol 250-50mcg Diskus IH SCH ×2 (08:36→21:23)
[2017-08-23] MEDS: Multivitamin With Minerals Tab PO SCH (08:38)
[2017-08-23] MEDS: Cholecalciferol 1,000 INTLU TAB PO SCH (08:38)
[2017-08-23] MEDS: Lactobacillus Acidophilus 500 MU Cap PO SCH ×2 (08:45→16:56)
--- NOTE | 2017-08-23 11:04 | CP.PCM.PN ---
Subjective - Date & Time of Evaluation Date of Evaluation: 08/23/17 Time of Evaluation: 10:59 - Subjective Subjective: Mr. Fred Banegas was seen and examined at the therapy room. 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 He is able to verbalize" muy bijal." but mainly uses uses non-verbal cues to communicate his needs to staff. He is able to follow some commands.. He remains with right facial droop, right side weakness, tolerating therapy sessions. He is using oxygen today, face has swelling, no s/s distress. Objective - Vital Signs/Intake and Output Vital Signs (last 24 hours): Temp Pulse Resp BP Pulse Ox 98.1 F 67 18 138/64 99 08/23/17 09:13 08/23/17 10:51 08/23/17 09:13 08/23/17 09:13 08/23/17 10:51 Intake and Output: 08/23/17 08/23/17 06:59 18:59 Intake Total 400 Output Total 550 Balance -150 - Medications Medications: Current Medications Albuterol Sulfate (Albuterol 0.083% Inhal Bere (2.5 Mg/3 Ml) Ud) 2.5 mg IH Q6 PRN PRN Reason: Shortness of Breath Last Admin: 08/23/17 03:38 Dose: 2.5 mg Albuterol/Ipratropium (Duoneb 3 Mg/0.5 Mg (3 Ml) Ud) 3 ml INH RQID [facility] Last Admin: 08/23/17 07:26 Dose: 3 ml Amlodipine Besylate (Norvasc) 10 mg PO DAILY [facility] Last Admin: 08/23/17 08:37 Dose: 10 mg Aspirin (Aspirin Chewable) 81 mg PO DAILY [facility] Last Admin: 08/23/17 08:36 Dose: 81 mg Atorvastatin Calcium (Lipitor) 40 mg PO HS [facility] Last Admin: 08/22/17 21:27 Dose: 40 mg Carvedilol (Coreg) 25 mg PO Q12 [facility] Last Admin: 08/23/17 08:37 Dose: 25 mg Cholecalciferol (Vitamin D) 2,000 intlu PO DAILY [facility] Last Admin: 08/23/17 08:38 Dose: 2,000 intlu Clopidogrel Bisulfate (Plavix) 75 mg PO DAILY [facility] Last Admin: 08/23/17 08:38 Dose: 75 mg Dextrose (Dextrose 50% Inj) 0 ml IV STAT PRN; Protocol PRN Reason: Hypoglycemia Protocol Dextrose (Glutose 15) 0 gm PO ONCE PRN; Protocol PRN Reason: Hypoglycemia Protocol Ferrous Sulfate (Feosol) 325 mg PO TID [facility] Last Admin: 08/23/17 08:37 Dose: 325 mg Finasteride (Proscar) 5 mg PO DAILY [facility] Last Admin: 08/23/17 08:38 Dose: 5 mg Furosemide (Lasix) 40 mg PO DAILY [facility] Last Admin: 08/23/17 08:37 Dose: 40 mg Glucagon (Glucagen Diagnostic Kit) 0 mg IM STAT PRN; Protocol PRN Reason: Hypoglycemia Protocol Heparin Sodium (Porcine) (Heparin) 5,000 units SC Q8 [facility] PRN Reason: Protocol Last Admin: 08/23/17 06:00 Dose: 5,000 units Ciprofloxacin (Cipro 400mg/200ml Dsw) 400 mg in 200 mls @ 200 mls/hr IVPB Q12@ 0700,1900 [facility] PRN Reason: Protocol Last Admin: 08/23/17 06:24 Dose: 200 mls/hr Insulin Human Lispro (Humalog) 0 units SC ACHS [facility] PRN Reason: Protocol Last Admin: 08/23/17 07:50 Dose: Not Given Insulin Human Lispro (Humalog) 18 units SC BID@0730,1700 [facility] Last Admin: 08/23/17 09:08 Dose: Not Given Lactobacillus Acidophilus (Bacid Acidophilus) 1 cap PO BID [facility] Last Admin: 08/23/17 08:45 Dose: 1 cap Latanoprost (Xalatan Opht) 1 drop OU HS [facility] Last Admin: 08/22/17 22:56 Dose: 1 drop Lisinopril (Zestril) 20 mg PO DAILY [facility] Last Admin: 08/23/17 08:38 Dose: 20 mg Multivitamins/Minerals (Therapeutic-M Tab) 1 tab PO DAILY [facility] Last Admin: 08/23/17 08:38 Dose: 1 tab Ondansetron HCl (Zofran Inj) 4 mg IVP Q6 PRN PRN Reason: Nausea/Vomiting Last Admin: 08/22/17 05:54 Dose: 4 mg Fluticasone/Salmeterol (Advair Diskus 250/50) 1 puff IH Q12 [facility] Last Admin: 08/23/17 08:36 Dose: 1 puff Sennosides (Senokot Tab) 17.2 mg PO [facility] Last Admin: 08/22/17 21:27 Dose: 17.2 mg Tamsulosin HCl (Flomax) 0.8 mg PO [facility] Last Admin: 08/22/17 21:27 Dose: 0.8 mg - Labs Labs: 08/21/17 05:20 08/21/17 05:20 - Constitutional Appears: No Acute Distress - Head Exam Head Exam: NORMAL INSPECTION - Neurological Exam Neurological Exam: Awake Neuro motor strength exam: Left Upper Extremity: 5, Right Upper Extremity: 2/1, Left Lower Extremity: 5, Right Lower Extremity: 2/1 Additional comments: neurological improved able to utter few words, follows simple commands. Assessment and Plan (1) Ischemic stroke Assessment & Plan: Case discussed with Dr. Vaughn, continue all current medical, physical, and occupational therapies. Recommend Blood pressure and glycemic control, hydration , Keep head of bed elevated at least 30 degrees angle when in bed. Status: Acute
--- NOTE | 2017-08-23 12:00 | RAD ---
HISTORY: cough COMPARISON: Chest radiograph dated 08/17/2017 TECHNIQUE: Chest PA and lateral FINDINGS: LUNGS: Bibasilar atelectasis PLEURA: Increase in size of small bilateral pleural effusions. No appreciable pneumothorax. CARDIOVASCULAR: Atherosclerotic aortic calcifications. Cardiomediastinal silhouette stably enlarged. OSSEOUS STRUCTURES: Unchanged. VISUALIZED UPPER ABDOMEN: Normal. OTHER FINDINGS: None. IMPRESSION: Increase in size of small bilateral pleural effusions.
[2017-08-23] MEDS: Sodium Chloride 0.9% 500 ML IV SCH ×3 (18:02→18:47)
[2017-08-23] MEDS: Latanoprost 0.005% Opht SOUTION OU SCH (21:25)
[2017-08-24] MEDS: Ciprofloxacin 400mg/200ml D5W 400 MG/200 ML BAG IVPB SCH ×2 (06:01→18:06)
[2017-08-24] MEDS: Insulin Lispro (humaLOG) 100 Units/ml Inj SC SCH ×6 (07:20→21:02)
[2017-08-24] MEDS: Albuterol-Ipratrop 3 mg / 0.5 (3 ml) UD INH SCH ×4 (07:28→19:15)
[2017-08-24] MEDS: Fluticasone-Salmeterol 250-50mcg Diskus IH SCH ×2 (08:37→20:21)
[2017-08-24] MEDS: Multivitamin With Minerals Tab PO SCH (08:38)
[2017-08-24] MEDS: Cholecalciferol 1,000 INTLU TAB PO SCH (08:38)
[2017-08-24] MEDS: Lactobacillus Acidophilus 500 MU Cap PO SCH ×2 (08:41→16:35)
[2017-08-24 12:07] LABS: BASO % 0.4 % (0.0-2.0); EOS # 0.4 K/uL (0.0-0.7); EOS % 4.3 % (0.0-4.0); HEMOGLOBIN 8.6 g/dL (12.0-18.0); LYMPH # 0.9 K/uL (1.0-4.3); LYMPH % 10.3 % (20.0-40.0); MEAN CORPUSCULAR HEMOGLOBIN 31.8 pg (27.0-31.0); MEAN CORPUSCULAR HGB CONC 34.6 g/dL (33.0-37.0); MEAN PLATELET VOLUME 9.5 fl (7.2-11.7); MONO # 1.3 K/uL (0.0-0.8); MONO % 14.5 % (0.0-10.0); NEUT # 6.1 K/uL (1.8-7.0); NEUT % 70.5 % (50.0-75.0); RBC 2.69 Mil/uL (4.40-5.90); WHITE BLOOD COUNT 8.6 K/uL (4.8-10.8)
[2017-08-24 12:17] LABS: CALCIUM 8.4 mg/dL (8.4-10.2)
[2017-08-24] MEDS: Lactulose 10 gm/15 ml Syrup PO SCH (16:35)
[2017-08-24] MEDS: Latanoprost 0.005% Opht SOUTION OU SCH (21:49)
[2017-08-25] MEDS: Ciprofloxacin 400mg/200ml D5W 400 MG/200 ML BAG IVPB SCH ×2 (06:27→18:06)
[2017-08-25] MEDS: Insulin Lispro (humaLOG) 100 Units/ml Inj SC SCH ×6 (06:40→21:20)
--- NOTE | 2017-08-25 07:32 | CP.PCM.PN ---
Subjective - Date & Time of Evaluation Date of Evaluation: 08/25/17 Time of Evaluation: 07:32 - Subjective Subjective: No acute overnight events. Pt states that he is doing well. Denies chest pain, back pain, palpitations, abdominal pain, remains afebrile. Objective - Vital Signs/Intake and Output Vital Signs (last 24 hours): Temp Pulse Resp BP Pulse Ox 99.3 F 73 20 151/65 H 99 08/24/17 20:08 08/24/17 20:21 08/24/17 20:08 08/24/17 20:21 08/24/17 20:08 - Medications Medications: Current Medications Albuterol Sulfate (Albuterol 0.083% Inhal Bere (2.5 Mg/3 Ml) Ud) 2.5 mg IH Q6 PRN PRN Reason: Shortness of Breath Last Admin: 08/23/17 03:38 Dose: 2.5 mg Albuterol/Ipratropium (Duoneb 3 Mg/0.5 Mg (3 Ml) Ud) 3 ml INH RQID [facility] Last Admin: 08/24/17 19:15 Dose: 3 ml Amlodipine Besylate (Norvasc) 10 mg PO DAILY [facility] Last Admin: 08/24/17 08:38 Dose: 10 mg Aspirin (Aspirin Chewable) 81 mg PO DAILY [facility] Last Admin: 08/24/17 08:38 Dose: 81 mg Atorvastatin Calcium (Lipitor) 40 mg PO HS [facility] Last Admin: 08/24/17 21:49 Dose: 40 mg Carvedilol (Coreg) 25 mg PO Q12 [facility] Last Admin: 08/24/17 20:21 Dose: 25 mg Cholecalciferol (Vitamin D) 2,000 intlu PO DAILY [facility] Last Admin: 08/24/17 08:38 Dose: 2,000 intlu Clopidogrel Bisulfate (Plavix) 75 mg PO DAILY [facility] Last Admin: 08/24/17 10:17 Dose: 75 mg Dextrose (Dextrose 50% Inj) 0 ml IV STAT PRN; Protocol PRN Reason: Hypoglycemia Protocol Dextrose (Glutose 15) 0 gm PO ONCE PRN; Protocol PRN Reason: Hypoglycemia Protocol Ferrous Sulfate (Feosol) 325 mg PO TID [facility] Last Admin: 08/24/17 16:36 Dose: 325 mg Finasteride (Proscar) 5 mg PO DAILY [facility] Last Admin: 08/24/17 08:38 Dose: 5 mg Furosemide (Lasix) 40 mg PO DAILY [facility] Last Admin: 08/24/17 08:39 Dose: 40 mg Glucagon (Glucagen Diagnostic Kit) 0 mg IM STAT PRN; Protocol PRN Reason: Hypoglycemia Protocol Heparin Sodium (Porcine) (Heparin) 5,000 units SC Q8 [facility] PRN Reason: Protocol Last Admin: 08/25/17 06:27 Dose: 5,000 units Ciprofloxacin (Cipro 400mg/200ml Dsw) 400 mg in 200 mls @ 200 mls/hr IVPB Q12@ 0700,1900 [facility] PRN Reason: Protocol Last Admin: 08/25/17 06:27 Dose: 200 mls/hr Insulin Human Lispro (Humalog) 0 units SC ACHS [facility] PRN Reason: Protocol Last Admin: 08/25/17 06:40 Dose: Not Given Insulin Human Lispro (Humalog) 18 units SC BID@0730,1700 [facility] Last Admin: 08/24/17 17:22 Dose: 18 units Lactobacillus Acidophilus (Bacid Acidophilus) 1 cap PO BID [facility] Last Admin: 08/24/17 16:35 Dose: 1 cap Lactulose (Enulose) 10 gm PO DAILY [facility] Last Admin: 08/24/17 16:35 Dose: 10 gm Latanoprost (Xalatan Opht) 1 drop OU HS [facility] Last Admin: 08/24/17 21:49 Dose: 1 drop Lisinopril (Zestril) 20 mg PO DAILY [facility] Last Admin: 08/24/17 08:38 Dose: 20 mg Multivitamins/Minerals (Therapeutic-M Tab) 1 tab PO DAILY [facility] Last Admin: 08/24/17 08:38 Dose: 1 tab Ondansetron HCl (Zofran Inj) 4 mg IVP Q6 PRN PRN Reason: Nausea/Vomiting Last Admin: 08/22/17 05:54 Dose: 4 mg Fluticasone/Salmeterol (Advair Diskus 250/50) 1 puff IH Q12 [facility] Last Admin: 08/24/17 20:21 Dose: 1 puff Sennosides (Senokot Tab) 17.2 mg PO HS [facility] Last Admin: 08/24/17 21:49 Dose: 17.2 mg Tamsulosin HCl (Flomax) 0.8 mg PO HS [facility] Last Admin: 08/24/17 21:48 Dose: 0.8 mg - Labs Labs: 08/24/17 11:51 08/24/17 11:51 - Constitutional Appears: No Acute Distress, Other (O2 via NC, R sided facial droop, aphasia ) - Head Exam Head Exam: NORMAL INSPECTION - Eye Exam Eye Exam: EOMI, Normal appearance - ENT Exam ENT Exam: Mucous Membranes Moist - Respiratory Exam Respiratory Exam: Wheezes (faint wheezing ), NORMAL BREATHING PATTERN - Cardiovascular Exam Cardiovascular Exam: REGULAR RHYTHM, +S1, +S2 - GI/Abdominal Exam GI & Abdominal Exam: Soft, Normal Bowel Sounds. absent: Tenderness - Extremities Exam Extremities Exam: Normal Inspection. absent: Calf Tenderness, Pedal Edema Additional comments: RUE minimal movement against gravity RLE improving full ROM L upper and lower extremities - Neurological Exam Neurological Exam: Alert, Awake - Psychiatric Exam Psychiatric exam: Normal Affect, Normal Mood Assessment and Plan - Assessment and Plan (Free Text) Assessment: Assessment/Plan: 82 YO male with PMHz of Diastolic HF, COPD, CAD s/p stent x 4, CKD, DM2 on insulin, HTN, HLD, Colon CA s/p surgery (1961), TIA/CVA (1988), left eye blindness/diabetic retinopathy, stroke x 2 (L temporal/occipital and L frontal lobe) is admitted to rehab for further therapy. UTI -UA 08/20 back; sig for trace leukes and WBC -culture 08/19 neg -c/w cipro 400 Q12 x 14 days D5/14 Urinary retention -likely 2/2 acute stroke, with BPH -c/w flomax 0.8mg, Finestride -cont hollis -will need outpatient urology Acute Stroke, L temporal/occipital junction (08/12) and acute infract L frontal lobe (08/13) -Neuro on board; cont meds; If the patient further declines with mental status, to repeat CT scan of the head without contrast. -c/w Aspirin and Plavix -c/w modified dysphagia diet -acute rehab Constipation -c/w lactulose -enema today DM2 on insulin -c/w to 18U BID -Correction scale HTN -controlled -C/w Lisinopril 10daily, 10mg Norvasc, Carvidilol 25mg BID Normocytic Anemia -stable -hb/hct 8.6/24.8 -FOBT pending Low vitamin D -Vit D level <12.8 -c/w 2000mg vit D daily CAD s/p stent x 4 -EKG: Sinus bradycardia with occasional premature ventricular complexes, Left ventricular hypertrophy with repolarization abnormality -echo normal LV, EF 55-60% -c/w Coreg, Statin, ASA and plavix History of Diastolic HF -Last ECHO from 11/2013 --> Normal LV syst function; Concentric LVH; Impaired Diastolic function -echo normal LV, EF 55-60% -Continue Lipitor 40 mg, ASA 81mg -Out patient Cardiology: Dr. Carlos Prophylaxis -DVT ppx c/w heparin -c/w probiotic
[2017-08-25] MEDS: Albuterol-Ipratrop 3 mg / 0.5 (3 ml) UD INH SCH ×4 (08:20→19:33)
[2017-08-25] MEDS: Lactulose 10 gm/15 ml Syrup PO SCH (08:49)
[2017-08-25] MEDS: Fluticasone-Salmeterol 250-50mcg Diskus IH SCH ×2 (08:50→20:20)
[2017-08-25] MEDS: Lactobacillus Acidophilus 500 MU Cap PO SCH ×2 (08:52→16:28)
[2017-08-25] MEDS: Cholecalciferol 1,000 INTLU TAB PO SCH (09:04)
[2017-08-25] MEDS: Multivitamin With Minerals Tab PO SCH (09:04)
[2017-08-25] MEDS: Latanoprost 0.005% Opht SOUTION OU SCH (21:44)
[2017-08-26] MEDS: Insulin Lispro (humaLOG) 100 Units/ml Inj SC SCH ×6 (06:30→21:01)
[2017-08-26 06:31] LABS: HEMOGLOBIN 8.8 g/dL (12.0-18.0); MEAN CELL VOLUME 91.3 fl (80.0-94.0); MEAN CORPUSCULAR HEMOGLOBIN 30.9 pg (27.0-31.0); MEAN CORPUSCULAR HGB CONC 33.9 g/dL (33.0-37.0); RBC 2.84 Mil/uL (4.40-5.90); RED CELL DISTRIBUTION WIDTH 14.2 % (11.5-14.5); WHITE BLOOD COUNT 9.7 K/uL (4.8-10.8)
[2017-08-26] MEDS: Ciprofloxacin 400mg/200ml D5W 400 MG/200 ML BAG IVPB SCH ×2 (06:34→18:02)
[2017-08-26 07:17] LABS: IRON 23 ug/dL (49-181)
[2017-08-26] MEDS: Albuterol-Ipratrop 3 mg / 0.5 (3 ml) UD INH SCH ×5 (07:22→19:09)
[2017-08-26 07:27] LABS: % IRON SATURATION 11 % (20-55); TOTAL IRON BINDING CAPACITY 212 ug/dL (250-450)
--- NOTE | 2017-08-26 07:51 | CP.PCM.CON ---
<WillianMinda - Last Filed: 08/26/17 11:38> History of Present Illness - History of Present Illness History of Present Illness: Gastroenterology Fellow/PGY5 Consult Note for Dr. Gonzalez 82 year old male with PMH of CVA/TIA, CAD s/p 4 stents, Colon cancer s/p resection , dCHF EF 55-60% (08/2017), HTN, HLD, T2DM, and CKD Stage 3 diagnosed with acute CVA with continued care in rehab. GI consultation for anemia and FOBT positive. Patient unable to provide history due to acute CVA complicated by expressive aphasia and right-sided weakness. Patient denies abdominal pain by shaking of head. History from chart review and nursing staff. Concern for drop in hemoglobin/hematocrit on dual anti-platelet therapy and DVT prophylaxis. Nursing notes no bowel movement for a few days with fleet administration yesterday followed by bowel movement sent for FOBT which returned positive. Nursing denies hematochezia, melena, hematemesis, hematuria, or easy bruising/bleeding. Yesterday, patient tolerated 100% of puree diet for breakfast/lunch and 25% of dinner. Unclear prior endoscopic history. Family History- obtained from chart review: mother- [place] Social History- obtained from chart review: former tobacco and alcohol use over 40 years ago Surgical History- obtained from chart review- colon resection , cardiac stents Review of Systems - Review of Systems Systems not reviewed;Unavailable: Other Review of Systems: unable to obtain in setting of acute CVA with expressive aphasia Past Patient History - Infectious Disease Hx of Infectious Diseases: None - Tetanus Immunizations Tetanus Immunization: Unknown - Past Medical History & Family History Past Medical History?: Yes - Past Social History Smoking Status: Former Smoker Drugs: Denies Home Situation {Lives}: With Family - CARDIAC Hx Cardiac Disorders: Yes Hx Congestive Heart Failure: Yes Hx Hypercholesterolemia: Yes Hx Hypertension: Yes - PULMONARY Hx Chronic Obstructive Pulmonary Disease (COPD): Yes - NEUROLOGICAL Hx Transient Ischemic Attacks (TIA): Yes (Per history in ~1988) - HEENT 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) Hx Cataracts: Yes (left eye) - RENAL Hx Chronic Kidney Disease: Yes - ENDOCRINE/METABOLIC Hx Diabetes Mellitus Type 2: Yes (Insuline at home) - HEMATOLOGICAL/ONCOLOGICAL Hx Blood Disorders: No - INTEGUMENTARY Hx Dermatological Problems: No - MUSCULOSKELETAL/RHEUMATOLOGICAL Hx Falls: No - GASTROINTESTINAL Hx Gastrointestinal Disorders: No - GENITOURINARY/GYNECOLOGICAL Hx Genitourinary Disorders: No - PSYCHIATRIC Hx Substance Use: No - SURGICAL HISTORY Hx Coronary Stent: Yes (x4) - ANESTHESIA Hx Anesthesia: Yes Hx Anesthesia Reactions: No Meds Allergies/Adverse Reactions: Allergies Allergy/AdvReac Type Severity Reaction Status Date / Time morphine Allergy VOMITING Verified 02/02/16 19:03 - Medications Medications: Current Medications Albuterol Sulfate (Albuterol 0.083% Inhal Bere (2.5 Mg/3 Ml) Ud) 2.5 mg IH Q6 PRN PRN Reason: Shortness of Breath Last Admin: 08/23/17 03:38 Dose: 2.5 mg Albuterol/Ipratropium (Duoneb 3 Mg/0.5 Mg (3 Ml) Ud) 3 ml INH RQID [facility] Last Admin: 08/26/17 07:22 Dose: 3 ml Amlodipine Besylate (Norvasc) 10 mg PO DAILY [facility] Last Admin: 08/25/17 09:24 Dose: 10 mg Aspirin (Aspirin Chewable) 81 mg PO DAILY [facility] Last Admin: 08/25/17 08:49 Dose: 81 mg Atorvastatin Calcium (Lipitor) 40 mg PO HS [facility] Last Admin: 08/25/17 21:43 Dose: 40 mg Carvedilol (Coreg) 25 mg PO Q12 [facility] Last Admin: 08/25/17 20:19 Dose: 25 mg Cholecalciferol (Vitamin D) 2,000 intlu PO DAILY [facility] Last Admin: 08/25/17 09:04 Dose: 2,000 intlu Clopidogrel Bisulfate (Plavix) 75 mg PO DAILY [facility] Last Admin: 08/25/17 09:04 Dose: 75 mg Dextrose (Dextrose 50% Inj) 0 ml IV STAT PRN; Protocol PRN Reason: Hypoglycemia Protocol Dextrose (Glutose 15) 0 gm PO ONCE PRN; Protocol PRN Reason: Hypoglycemia Protocol Ferrous Sulfate (Feosol) 325 mg PO TID [facility] Last Admin: 08/25/17 16:28 Dose: 325 mg Finasteride (Proscar) 5 mg PO DAILY [facility] Last Admin: 08/25/17 09:04 Dose: 5 mg Furosemide (Lasix) 40 mg PO DAILY [facility] Last Admin: 08/25/17 08:49 Dose: 40 mg Glucagon (Glucagen Diagnostic Kit) 0 mg IM STAT PRN; Protocol PRN Reason: Hypoglycemia Protocol Heparin Sodium (Porcine) (Heparin) 5,000 units SC Q8 [facility] PRN Reason: Protocol Last Admin: 08/26/17 05:53 Dose: 5,000 units Ciprofloxacin (Cipro 400mg/200ml Dsw) 400 mg in 200 mls @ 200 mls/hr IVPB Q12@ 0700,1900 [facility] PRN Reason: Protocol Last Admin: 08/26/17 06:34 Dose: 200 mls/hr Insulin Human Lispro (Humalog) 0 units SC ACHS [facility] PRN Reason: Protocol Last Admin: 08/26/17 06:30 Dose: Not Given Insulin Human Lispro (Humalog) 18 units SC BID@0730,1700 [facility] Last Admin: 08/25/17 16:40 Dose: 18 units Lactobacillus Acidophilus (Bacid Acidophilus) 1 cap PO BID [facility] Last Admin: 08/25/17 16:28 Dose: 1 cap Lactulose (Enulose) 10 gm PO DAILY [facility] Last Admin: 08/25/17 08:49 Dose: 10 gm Latanoprost (Xalatan Opht) 1 drop OU HS [facility] Last Admin: 08/25/17 21:44 Dose: 1 drop Lisinopril (Zestril) 20 mg PO DAILY [facility] Last Admin: 08/25/17 09:04 Dose: 20 mg Multivitamins/Minerals (Therapeutic-M Tab) 1 tab PO DAILY [facility] Last Admin: 08/25/17 09:04 Dose: 1 tab Ondansetron HCl (Zofran Inj) 4 mg IVP Q6 PRN PRN Reason: Nausea/Vomiting Last Admin: 08/22/17 05:54 Dose: 4 mg Fluticasone/Salmeterol (Advair Diskus 250/50) 1 puff IH Q12 [facility] Last Admin: 08/25/17 20:20 Dose: 1 puff Sennosides (Senokot Tab) 17.2 mg PO HS [facility] Last Admin: 08/25/17 21:43 Dose: 17.2 mg Tamsulosin HCl (Flomax) 0.8 mg PO HS [facility] Last Admin: 08/25/17 21:43 Dose: 0.8 mg Physical Exam - Constitutional Appears: Non-toxic, No Acute Distress - Head Exam Head Exam: ATRAUMATIC, NORMOCEPHALIC - Eye Exam Eye Exam: EOMI, PERRL. absent: Scleral icterus Pupil Exam: PERRL. absent: Miosis, Mydriatic - ENT Exam ENT Exam: Mucous Membranes Moist, Normal Oropharynx - Neck Exam Neck exam: Positive for: Full Rom, Normal Inspection - Respiratory Exam Respiratory Exam: Clear to Auscultation Bilateral. absent: Rales, Rhonchi, Wheezes - Cardiovascular Exam Cardiovascular Exam: RRR, +S1, +S2. absent: Gallop, Rubs - GI/Abdominal Exam GI & Abdominal Exam: Normal Bowel Sounds, Soft. absent: Distended, Firm, Guarding, Organomegaly, Rebound, Rigid, Tenderness - Rectal Exam Rectal Exam: Hemorrhoids Additional comments: green soft stool in rectal vault, large external hemorrhoid with scant bright red blood on examination - Extremities Exam Extremities exam: Positive for: normal inspection. Negative for: pedal edema - Neurological Exam Neurological exam: Alert, Motor Sensory Deficit Additional comments: limited exam, unable to follow command with acute CVA, right sided weakness - Psychiatric Exam Psychiatric exam: Normal Affect, Normal Mood - Skin Skin Exam: Dry, Intact, Normal Color, Warm Results - Vital Signs Recent Vital Signs: Last Vital Signs Temp 98.1 F 08/25/17 20:17 Pulse 75 08/25/17 20:19 Resp 22 08/25/17 20:17 BP 148/61 08/25/17 20:19 Pulse Ox 94 L 08/25/17 20:17 - Labs Result Diagrams: 08/26/17 06:05 08/24/17 11:51 Labs: Laboratory Results - last 24 hr 08/25/17 08/25/17 08/25/17 11:14 12:06 15:51 WBC RBC Hgb Hct MCV MCH MCHC RDW Plt Count Retic Count POC Glucose (mg/dL) 149 H 198 H Iron TIBC % Saturation Stool Occult Blood Positive H BBK History Checked 08/25/17 08/26/17 08/26/17 21:20 05:55 06:05 WBC 9.7 RBC 2.84 L Hgb 8.8 L Hct 25.9 L MCV 91.3 MCH 30.9 MCHC 33.9 RDW 14.2 Plt Count 336 Retic Count POC Glucose (mg/dL) 70 133 H Iron TIBC % Saturation Stool Occult Blood BBK History Checked 08/26/17 08/26/17 08/26/17 06:05 06:05 06:05 WBC RBC Hgb Hct MCV MCH MCHC RDW Plt Count Retic Count 1.9 H POC Glucose (mg/dL) Iron 23 L TIBC 212 L % Saturation 11 L Stool Occult Blood BBK History Checked Patient has bt Assessment & Plan - Assessment and Plan (Free Text) Assessment: 82 year old male with PMH of CVA/TIA, CAD s/p 4 stents, Colon cancer s/p resection 1960s, dCHF EF 55-60% (08/2017), HTN, HLD, T2DM, and CKD Stage 3 presenting with right sided weakness. Active treatment of left frontotemporal/ occipital CVA complicated by by expressive aphasia and right-sided weakness status post extubation on 08/15 for hypoxic VDRF 2/2 RUL PNA with continued care in rehab. GI consultation for anemia and FOBT positive. Unclear prior endoscopic history. Plan: -low suspicion for acute GI Bleed -no overt GI blood loss -rectal exam- green stool -H/H stable, continue to trend -noted to trend down on 08/14 to 08/15 in setting of dual anti-platelet therapy and DVT PPx -benefit outweighs risk of anticoagulation and anti-platelet therapy given acute CVA, immobility, and multiple comorbidities -FOBT positive likely 2/2 to scant bleeding from large external hemorrhoid due to irritation with recent constipation relieved with fleet enema -consider PPI to reduce risk of GI bleed while on dual anti-platelet therapy and DVT PPx -no indication for urgent inpatient endoscopic evaluation, will benefit from follow up for consideration of elective luminal exams -bowel regimen to prevent constipation -consider topical hydrocortisone cream as needed <Crispin Gonzalez - Last Filed: 08/29/17 09:14> Meds - Medications Medications: Current Medications Albuterol Sulfate (Albuterol 0.083% Inhal Bere (2.5 Mg/3 Ml) Ud) 2.5 mg IH Q6 PRN PRN Reason: Shortness of Breath Last Admin: 08/23/17 03:38 Dose: 2.5 mg Albuterol/Ipratropium (Duoneb 3 Mg/0.5 Mg (3 Ml) Ud) 3 ml INH RQID [facility] Last Admin: 08/29/17 07:23 Dose: 3 ml Amlodipine Besylate (Norvasc) 10 mg PO DAILY [facility] Last Admin: 08/29/17 08:17 Dose: 10 mg Aspirin (Aspirin Chewable) 81 mg PO DAILY [facility] Last Admin: 08/29/17 08:14 Dose: 81 mg Atorvastatin Calcium (Lipitor) 40 mg PO HS [facility] Last Admin: 08/28/17 21:14 Dose: 40 mg Carvedilol (Coreg) 25 mg PO Q12 [facility] Last Admin: 08/29/17 08:15 Dose: 25 mg Cholecalciferol (Vitamin D) 2,000 intlu PO DAILY [facility] Last Admin: 08/29/17 08:18 Dose: 2,000 intlu Clopidogrel Bisulfate (Plavix) 75 mg PO DAILY [facility] Last Admin: 08/29/17 08:18 Dose: 75 mg Dextrose (Dextrose 50% Inj) 0 ml IV STAT PRN; Protocol PRN Reason: Hypoglycemia Protocol Dextrose (Glutose 15) 0 gm PO ONCE PRN; Protocol PRN Reason: Hypoglycemia Protocol Famotidine (Pepcid) 20 mg PO DAILY [facility] Last Admin: 08/29/17 08:18 Dose: 20 mg Ferrous Sulfate (Feosol) 325 mg PO TID [facility] Last Admin: 08/29/17 08:16 Dose: 325 mg Finasteride (Proscar) 5 mg PO DAILY [facility] Last Admin: 08/29/17 08:18 Dose: 5 mg Furosemide (Lasix) 40 mg PO DAILY [facility] Last Admin: 08/29/17 08:17 Dose: 40 mg Glucagon (Glucagen Diagnostic Kit) 0 mg IM STAT PRN; Protocol PRN Reason: Hypoglycemia Protocol Heparin Sodium (Porcine) (Heparin) 5,000 units SC Q8 [facility] PRN Reason: Protocol Last Admin: 08/29/17 05:48 Dose: 5,000 units Ciprofloxacin (Cipro 400mg/200ml Dsw) 400 mg in 200 mls @ 200 mls/hr IVPB Q12@ 0700,1900 [facility] PRN Reason: Protocol Last Admin: 08/29/17 06:00 Dose: 200 mls/hr Insulin Human Lispro (Humalog) 0 units SC ACHS [facility] PRN Reason: Protocol Last Admin: 08/29/17 06:34 Dose: Not Given Insulin Lispro Protam/Lispro Human (Humalog Mix 75/25) 16 units SC BID [facility] Last Admin: 08/29/17 08:16 Dose: 16 units Lactobacillus Acidophilus (Bacid Acidophilus) 1 cap PO BID [facility] Last Admin: 08/29/17 08:20 Dose: 1 cap Lactulose (Enulose) 10 gm PO DAILY [facility] Last Admin: 08/29/17 08:16 Dose: 10 gm Latanoprost (Xalatan Opht) 1 drop OU HS [facility] Last Admin: 08/28/17 21:15 Dose: 1 drop Lisinopril (Zestril) 20 mg PO DAILY [facility] Last Admin: 08/29/17 08:19 Dose: 20 mg Multivitamins/Minerals (Therapeutic-M Tab) 1 tab PO DAILY [facility] Last Admin: 08/29/17 08:18 Dose: 1 tab Ondansetron HCl (Zofran Inj) 4 mg IVP Q6 PRN PRN Reason: Nausea/Vomiting Last Admin: 08/22/17 05:54 Dose: 4 mg Fluticasone/Salmeterol (Advair Diskus 250/50) 1 puff IH Q12 [facility] Last Admin: 08/29/17 08:14 Dose: 1 puff Sennosides (Senokot Tab) 17.2 mg PO [facility] Last Admin: 08/28/17 21:14 Dose: 17.2 mg Tamsulosin HCl (Flomax) 0.8 mg PO [facility] Last Admin: 08/28/17 21:13 Dose: 0.8 mg Results - Vital Signs Recent Vital Signs: Last Vital Signs Temp 97.9 F 08/29/17 07:55 Pulse 76 08/29/17 08:19 Resp 19 08/29/17 07:55 BP 140/58 L 08/29/17 08:19 Pulse Ox 97 08/29/17 07:55 - Labs Result Diagrams: 08/29/17 05:20 08/29/17 05:20 Labs: Laboratory Results - last 24 hr 08/28/17 08/28/17 08/28/17 00:04 06:37 12:09 WBC RBC Hgb Hct MCV MCH MCHC RDW Plt Count MPV Neut % (Auto) Lymph % (Auto) Iron % (Auto) Eos % (Auto) Baso % (Auto) Neut # (Auto) Lymph # (Auto) Iron # (Auto) Eos # (Auto) Baso # (Auto) Sodium Potassium Chloride Carbon Dioxide Anion Gap BUN Creatinine Est GFR ( Amer) Est GFR (Non-Af Amer) POC Glucose (mg/dL) 113 H 128 H 151 H Random Glucose Calcium 08/28/17 08/28/17 08/29/17 15:45 21:09 05:20 WBC 8.4 RBC 2.67 L Hgb 8.3 L Hct 24.4 L MCV 91.7 MCH 31.0 MCHC 33.8 RDW 14.6 H Plt Count 367 MPV 9.5 Neut % (Auto) 67.9 Lymph % (Auto) 12.9 L Iron % (Auto) 12.5 H Eos % (Auto) 6.1 H Baso % (Auto) 0.6 Neut # (Auto) 5.7 Lymph # (Auto) 1.1 Iron # (Auto) 1.1 H Eos # (Auto) 0.5 Baso # (Auto) 0.0 Sodium Potassium Chloride Carbon Dioxide Anion Gap BUN Creatinine Est GFR ( Amer) Est GFR (Non-Af Amer) POC Glucose (mg/dL) 156 H 140 H Random Glucose Calcium 08/29/17 08/29/17 05:20 05:46 WBC RBC Hgb Hct MCV MCH MCHC RDW Plt Count MPV Neut % (Auto) Lymph % (Auto) Iron % (Auto) Eos % (Auto) Baso % (Auto) Neut # (Auto) Lymph # (Auto) Iron # (Auto) Eos # (Auto) Baso # (Auto) Sodium 138 Potassium 4.0 Chloride 102 Carbon Dioxide 28 Anion Gap 12 BUN 18 Creatinine 1.7 H Est GFR ( Amer) 47 Est GFR (Non-Af Amer) 39 POC Glucose (mg/dL) 108 Random Glucose 99 Calcium 8.7 Assessment & Plan - Assessment and Plan (Free Text) Plan: Patient seen and examined Discussed with fellow and agree with above Crispin Gonzalez MD, PhD
[2017-08-26] MEDS: Fluticasone-Salmeterol 250-50mcg Diskus IH SCH ×2 (08:24→20:14)
[2017-08-26] MEDS: Lactulose 10 gm/15 ml Syrup PO SCH (08:26)
[2017-08-26] MEDS: Multivitamin With Minerals Tab PO SCH (08:28)
[2017-08-26] MEDS: Cholecalciferol 1,000 INTLU TAB PO SCH (08:28)
[2017-08-26] MEDS: Lactobacillus Acidophilus 500 MU Cap PO SCH ×2 (08:30→16:52)
--- NOTE | 2017-08-26 10:01 | CP.PCM.PN ---
Subjective - Date & Time of Evaluation Date of Evaluation: 08/26/17 Time of Evaluation: 10:01 - Subjective Subjective: Mr. Fred Banegas was seen and examined at the bedside. 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 He is able to verbalize few slovak words during speech therapy. He attempts to talk to any person but mainly uses uses non-verbal cues to communicate his needs to staff. He is able to follow some commands and able to move minimally in his bed.He remains with right facial droop, right side weakness, tolerating therapy sessions. He is using oxygen today, face has swelling, no s/s distress. Objective - Vital Signs/Intake and Output Vital Signs (last 24 hours): Temp Pulse Resp BP Pulse Ox 98.1 F 75 20 132/71 97 08/26/17 08:08 08/26/17 08:28 08/26/17 08:08 08/26/17 08:28 08/26/17 08:08 Intake and Output: 08/26/17 08/26/17 06:59 18:59 Intake Total 440 Output Total 800 Balance -360 - Medications Medications: Current Medications Albuterol Sulfate (Albuterol 0.083% Inhal Bere (2.5 Mg/3 Ml) Ud) 2.5 mg IH Q6 PRN PRN Reason: Shortness of Breath Last Admin: 08/23/17 03:38 Dose: 2.5 mg Albuterol/Ipratropium (Duoneb 3 Mg/0.5 Mg (3 Ml) Ud) 3 ml INH RQID [facility] Last Admin: 08/26/17 07:22 Dose: 3 ml Amlodipine Besylate (Norvasc) 10 mg PO DAILY [facility] Last Admin: 08/26/17 08:28 Dose: 10 mg Aspirin (Aspirin Chewable) 81 mg PO DAILY [facility] Last Admin: 08/26/17 08:25 Dose: 81 mg Atorvastatin Calcium (Lipitor) 40 mg PO HS [facility] Last Admin: 08/25/17 21:43 Dose: 40 mg Carvedilol (Coreg) 25 mg PO Q12 [facility] Last Admin: 08/26/17 08:26 Dose: 25 mg Cholecalciferol (Vitamin D) 2,000 intlu PO DAILY [facility] Last Admin: 08/26/17 08:28 Dose: 2,000 intlu Clopidogrel Bisulfate (Plavix) 75 mg PO DAILY [facility] Last Admin: 08/26/17 08:28 Dose: 75 mg Dextrose (Dextrose 50% Inj) 0 ml IV STAT PRN; Protocol PRN Reason: Hypoglycemia Protocol Dextrose (Glutose 15) 0 gm PO ONCE PRN; Protocol PRN Reason: Hypoglycemia Protocol Ferrous Sulfate (Feosol) 325 mg PO TID [facility] Last Admin: 08/26/17 08:26 Dose: 325 mg Finasteride (Proscar) 5 mg PO DAILY [facility] Last Admin: 08/26/17 08:28 Dose: 5 mg Furosemide (Lasix) 40 mg PO DAILY [facility] Last Admin: 08/26/17 08:27 Dose: 40 mg Glucagon (Glucagen Diagnostic Kit) 0 mg IM STAT PRN; Protocol PRN Reason: Hypoglycemia Protocol Heparin Sodium (Porcine) (Heparin) 5,000 units SC Q8 [facility] PRN Reason: Protocol Last Admin: 08/26/17 05:53 Dose: 5,000 units Ciprofloxacin (Cipro 400mg/200ml Dsw) 400 mg in 200 mls @ 200 mls/hr IVPB Q12@ 0700,1900 [facility] PRN Reason: Protocol Last Admin: 08/26/17 06:34 Dose: 200 mls/hr Insulin Human Lispro (Humalog) 0 units SC ACHS [facility] PRN Reason: Protocol Last Admin: 08/26/17 06:30 Dose: Not Given Insulin Human Lispro (Humalog) 18 units SC BID@0730,1700 [facility] Last Admin: 08/26/17 08:27 Dose: 18 units Lactobacillus Acidophilus (Bacid Acidophilus) 1 cap PO BID [facility] Last Admin: 08/26/17 08:30 Dose: 1 cap Lactulose (Enulose) 10 gm PO DAILY [facility] Last Admin: 08/26/17 08:26 Dose: 10 gm Latanoprost (Xalatan Opht) 1 drop OU HS [facility] Last Admin: 08/25/17 21:44 Dose: 1 drop Lisinopril (Zestril) 20 mg PO DAILY [facility] Last Admin: 08/26/17 08:28 Dose: 20 mg Multivitamins/Minerals (Therapeutic-M Tab) 1 tab PO DAILY [facility] Last Admin: 08/26/17 08:28 Dose: 1 tab Ondansetron HCl (Zofran Inj) 4 mg IVP Q6 PRN PRN Reason: Nausea/Vomiting Last Admin: 08/22/17 05:54 Dose: 4 mg Fluticasone/Salmeterol (Advair Diskus 250/50) 1 puff IH Q12 [facility] Last Admin: 08/26/17 08:24 Dose: 1 puff Sennosides (Senokot Tab) 17.2 mg PO HS [facility] Last Admin: 08/25/17 21:43 Dose: 17.2 mg Tamsulosin HCl (Flomax) 0.8 mg PO HS [facility] Last Admin: 08/25/17 21:43 Dose: 0.8 mg - Labs Labs: 08/26/17 06:05 08/24/17 11:51 - Constitutional Appears: No Acute Distress - Head Exam Head Exam: NORMAL INSPECTION - Neurological Exam Neurological Exam: Awake Neuro motor strength exam: Left Upper Extremity: 5, Right Upper Extremity: 2/1, Left Lower Extremity: 5, Right Lower Extremity: 2/1 Additional comments: neurological unchanged from previous examination. Assessment and Plan (1) Ischemic stroke Assessment & Plan: Case discussed with Dr. Thomas, continue all current medical, physical, and occupational therapies. Recommend Blood pressure and glycemic control, hydration , Keep head of bed elevated at least 30 degrees angle when in bed. Status: Acute
--- NOTE | 2017-08-26 10:11 | CP.PCM.PN ---
Addendum entered and electronically signed by Miroslava Gonzalez MD 08/26/17 14:31: IDDM Sugar this afternoon 86, will adjust BID insulin regimen. Decrease to 16U BID monitor Original Note: Subjective - Date & Time of Evaluation Date of Evaluation: 08/26/17 Time of Evaluation: 10:09 - Subjective Subjective: Pt given enema yesterday, has a BM. No acute overnight events. Aphasia improving. Pt doing well, denies chest pain, dyspnea, headache, and remains afebrile. Objective - Vital Signs/Intake and Output Vital Signs (last 24 hours): Temp Pulse Resp BP Pulse Ox 98.1 F 75 20 132/71 97 08/26/17 08:08 08/26/17 08:28 08/26/17 08:08 08/26/17 08:28 08/26/17 08:08 Intake and Output: 08/26/17 08/26/17 06:59 18:59 Intake Total 440 Output Total 800 Balance -360 - Medications Medications: Current Medications Albuterol Sulfate (Albuterol 0.083% Inhal Bere (2.5 Mg/3 Ml) Ud) 2.5 mg IH Q6 PRN PRN Reason: Shortness of Breath Last Admin: 08/23/17 03:38 Dose: 2.5 mg Albuterol/Ipratropium (Duoneb 3 Mg/0.5 Mg (3 Ml) Ud) 3 ml INH RQID [facility] Last Admin: 08/26/17 07:22 Dose: 3 ml Amlodipine Besylate (Norvasc) 10 mg PO DAILY [facility] Last Admin: 08/26/17 08:28 Dose: 10 mg Aspirin (Aspirin Chewable) 81 mg PO DAILY [facility] Last Admin: 08/26/17 08:25 Dose: 81 mg Atorvastatin Calcium (Lipitor) 40 mg PO HS [facility] Last Admin: 08/25/17 21:43 Dose: 40 mg Carvedilol (Coreg) 25 mg PO Q12 [facility] Last Admin: 08/26/17 08:26 Dose: 25 mg Cholecalciferol (Vitamin D) 2,000 intlu PO DAILY [facility] Last Admin: 08/26/17 08:28 Dose: 2,000 intlu Clopidogrel Bisulfate (Plavix) 75 mg PO DAILY [facility] Last Admin: 08/26/17 08:28 Dose: 75 mg Dextrose (Dextrose 50% Inj) 0 ml IV STAT PRN; Protocol PRN Reason: Hypoglycemia Protocol Dextrose (Glutose 15) 0 gm PO ONCE PRN; Protocol PRN Reason: Hypoglycemia Protocol Ferrous Sulfate (Feosol) 325 mg PO TID [facility] Last Admin: 08/26/17 08:26 Dose: 325 mg Finasteride (Proscar) 5 mg PO DAILY [facility] Last Admin: 08/26/17 08:28 Dose: 5 mg Furosemide (Lasix) 40 mg PO DAILY [facility] Last Admin: 08/26/17 08:27 Dose: 40 mg Glucagon (Glucagen Diagnostic Kit) 0 mg IM STAT PRN; Protocol PRN Reason: Hypoglycemia Protocol Heparin Sodium (Porcine) (Heparin) 5,000 units SC Q8 [facility] PRN Reason: Protocol Last Admin: 08/26/17 05:53 Dose: 5,000 units Ciprofloxacin (Cipro 400mg/200ml Dsw) 400 mg in 200 mls @ 200 mls/hr IVPB Q12@ 0700,1900 [facility] PRN Reason: Protocol Last Admin: 08/26/17 06:34 Dose: 200 mls/hr Insulin Human Lispro (Humalog) 0 units SC ACHS [facility] PRN Reason: Protocol Last Admin: 08/26/17 06:30 Dose: Not Given Insulin Human Lispro (Humalog) 18 units SC BID@0730,1700 [facility] Last Admin: 08/26/17 08:27 Dose: 18 units Lactobacillus Acidophilus (Bacid Acidophilus) 1 cap PO BID [facility] Last Admin: 08/26/17 08:30 Dose: 1 cap Lactulose (Enulose) 10 gm PO DAILY [facility] Last Admin: 08/26/17 08:26 Dose: 10 gm Latanoprost (Xalatan Opht) 1 drop OU HS [facility] Last Admin: 08/25/17 21:44 Dose: 1 drop Lisinopril (Zestril) 20 mg PO DAILY [facility] Last Admin: 08/26/17 08:28 Dose: 20 mg Multivitamins/Minerals (Therapeutic-M Tab) 1 tab PO DAILY [facility] Last Admin: 08/26/17 08:28 Dose: 1 tab Ondansetron HCl (Zofran Inj) 4 mg IVP Q6 PRN PRN Reason: Nausea/Vomiting Last Admin: 08/22/17 05:54 Dose: 4 mg Fluticasone/Salmeterol (Advair Diskus 250/50) 1 puff IH Q12 [facility] Last Admin: 08/26/17 08:24 Dose: 1 puff Sennosides (Senokot Tab) 17.2 mg PO HS [facility] Last Admin: 08/25/17 21:43 Dose: 17.2 mg Tamsulosin HCl (Flomax) 0.8 mg PO HS [facility] Last Admin: 08/25/17 21:43 Dose: 0.8 mg - Labs Labs: 08/26/17 06:05 08/24/17 11:51 - Constitutional Appears: No Acute Distress, Other (NC on 2L, R sided facial droop) - Head Exam Head Exam: NORMAL INSPECTION - Eye Exam Eye Exam: EOMI - ENT Exam ENT Exam: Mucous Membranes Moist - Respiratory Exam Respiratory Exam: Clear to Ausculation Bilateral, NORMAL BREATHING PATTERN. absent: Wheezes - Cardiovascular Exam Cardiovascular Exam: REGULAR RHYTHM, +S1, +S2 - GI/Abdominal Exam GI & Abdominal Exam: Soft, Normal Bowel Sounds. absent: Tenderness - Extremities Exam Extremities Exam: Normal Inspection. 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 UTI -UA 08/20 back; sig for trace leukes and WBC -culture 08/19 neg -c/w cipro 400 Q12 x 14 days (08/21/17) D6/14 Urinary retention -stable -likely 2/2 acute stroke, with BPH -c/w flomax 0.8mg, Finestride -cont hollis -will need outpatient urology Acute Stroke, L temporal/occipital junction (08/12) and acute infract L frontal lobe (08/13) -Neuro on board; cont meds; If the patient further declines with mental status, to repeat CT scan of the head without contrast. -c/w Aspirin and Plavix -c/w modified dysphagia diet -acute rehab DM2 on insulin -c/w to 18U BID -Correction scale HTN -controlled -C/w Lisinopril 10daily, 10mg Norvasc, Carvidilol 25mg BID Normocytic Anemia -stable -iron studies appreciated, low iron with normal ferritin -c/w Iron PO -FOBT pos -GI consulted; pending recs Low vitamin D -Vit D level <12.8 -c/w 2000mg vit D daily CAD s/p stent x 4 -EKG: Sinus bradycardia with occasional premature ventricular complexes, Left ventricular hypertrophy with repolarization abnormality -echo normal LV, EF 55-60% -c/w Coreg, Statin, ASA and plavix History of Diastolic HF -Last ECHO from 11/2013 --> Normal LV syst function; Concentric LVH; Impaired Diastolic function -echo normal LV, EF 55-60% -Continue Lipitor 40 mg, ASA 81mg -Out patient Cardiology: Dr. Carlos Prophylaxis -DVT ppx c/w heparin -c/w probiotic
--- NOTE | 2017-08-26 17:31 | CP.PCM.PN ---
Subjective - Date & Time of Evaluation Date of Evaluation: 08/26/17 Time of Evaluation: 17:29 - Subjective Subjective: Patient seen in the room denies dizzines or chest pain no cough soft diet continue with current care right HP with some synergistic arm movements Objective - Vital Signs/Intake and Output Vital Signs (last 24 hours): Temp Pulse Resp BP Pulse Ox 98.1 F 75 20 132/71 97 08/26/17 08:08 08/26/17 08:28 08/26/17 08:08 08/26/17 08:28 08/26/17 08:08 Intake and Output: 08/26/17 08/26/17 06:59 18:59 Intake Total 440 Output Total 800 Balance -360 - Medications Medications: Current Medications Albuterol Sulfate (Albuterol 0.083% Inhal Bere (2.5 Mg/3 Ml) Ud) 2.5 mg IH Q6 PRN PRN Reason: Shortness of Breath Last Admin: 08/23/17 03:38 Dose: 2.5 mg Albuterol/Ipratropium (Duoneb 3 Mg/0.5 Mg (3 Ml) Ud) 3 ml INH RQID [facility] Last Admin: 08/26/17 15:14 Dose: Not Given Amlodipine Besylate (Norvasc) 10 mg PO DAILY [facility] Last Admin: 08/26/17 08:28 Dose: 10 mg Aspirin (Aspirin Chewable) 81 mg PO DAILY [facility] Last Admin: 08/26/17 08:25 Dose: 81 mg Atorvastatin Calcium (Lipitor) 40 mg PO HS [facility] Last Admin: 08/25/17 21:43 Dose: 40 mg Carvedilol (Coreg) 25 mg PO Q12 [facility] Last Admin: 08/26/17 08:26 Dose: 25 mg Cholecalciferol (Vitamin D) 2,000 intlu PO DAILY [facility] Last Admin: 08/26/17 08:28 Dose: 2,000 intlu Clopidogrel Bisulfate (Plavix) 75 mg PO DAILY [facility] Last Admin: 08/26/17 08:28 Dose: 75 mg Dextrose (Dextrose 50% Inj) 0 ml IV STAT PRN; Protocol PRN Reason: Hypoglycemia Protocol Dextrose (Glutose 15) 0 gm PO ONCE PRN; Protocol PRN Reason: Hypoglycemia Protocol Famotidine (Pepcid) 20 mg PO DAILY [facility] Ferrous Sulfate (Feosol) 325 mg PO TID [facility] Last Admin: 08/26/17 16:52 Dose: 325 mg Finasteride (Proscar) 5 mg PO DAILY [facility] Last Admin: 08/26/17 08:28 Dose: 5 mg Furosemide (Lasix) 40 mg PO DAILY [facility] Last Admin: 08/26/17 08:27 Dose: 40 mg Glucagon (Glucagen Diagnostic Kit) 0 mg IM STAT PRN; Protocol PRN Reason: Hypoglycemia Protocol Heparin Sodium (Porcine) (Heparin) 5,000 units SC Q8 [facility] PRN Reason: Protocol Last Admin: 08/26/17 14:35 Dose: 5,000 units Ciprofloxacin (Cipro 400mg/200ml Dsw) 400 mg in 200 mls @ 200 mls/hr IVPB Q12@ 0700,1900 [facility] PRN Reason: Protocol Last Admin: 08/26/17 06:34 Dose: 200 mls/hr Insulin Human Lispro (Humalog) 0 units SC ACHS [facility] PRN Reason: Protocol Last Admin: 08/26/17 16:50 Dose: 2 units Insulin Human Lispro (Humalog) 16 units SC BID@0730,1700 [facility] Last Admin: 08/26/17 16:51 Dose: 16 unit Lactobacillus Acidophilus (Bacid Acidophilus) 1 cap PO BID [facility] Last Admin: 08/26/17 16:52 Dose: 1 cap Lactulose (Enulose) 10 gm PO DAILY [facility] Last Admin: 08/26/17 08:26 Dose: 10 gm Latanoprost (Xalatan Opht) 1 drop OU HS [facility] Last Admin: 08/25/17 21:44 Dose: 1 drop Lisinopril (Zestril) 20 mg PO DAILY [facility] Last Admin: 08/26/17 08:28 Dose: 20 mg Multivitamins/Minerals (Therapeutic-M Tab) 1 tab PO DAILY [facility] Last Admin: 08/26/17 08:28 Dose: 1 tab Ondansetron HCl (Zofran Inj) 4 mg IVP Q6 PRN PRN Reason: Nausea/Vomiting Last Admin: 08/22/17 05:54 Dose: 4 mg Fluticasone/Salmeterol (Advair Diskus 250/50) 1 puff IH Q12 [facility] Last Admin: 08/26/17 08:24 Dose: 1 puff Sennosides (Senokot Tab) 17.2 mg PO HS [facility] Last Admin: 08/25/17 21:43 Dose: 17.2 mg Tamsulosin HCl (Flomax) 0.8 mg PO HS [facility] Last Admin: 08/25/17 21:43 Dose: 0.8 mg - Labs Labs: 08/26/17 06:05 08/24/17 11:51
[2017-08-26] MEDS: Latanoprost 0.005% Opht SOUTION OU SCH (21:45)
[2017-08-27] MEDS: Ciprofloxacin 400mg/200ml D5W 400 MG/200 ML BAG IVPB SCH ×2 (06:26→18:11)
[2017-08-27] MEDS: Insulin Lispro (humaLOG) 100 Units/ml Inj SC SCH ×6 (06:41→22:03)
[2017-08-27] MEDS: Albuterol-Ipratrop 3 mg / 0.5 (3 ml) UD INH SCH ×4 (08:22→19:09)
[2017-08-27] MEDS: Fluticasone-Salmeterol 250-50mcg Diskus IH SCH ×2 (08:27→21:30)
[2017-08-27] MEDS: Multivitamin With Minerals Tab PO SCH (08:29)
[2017-08-27] MEDS: Lactobacillus Acidophilus 500 MU Cap PO SCH ×2 (08:35→17:12)
[2017-08-27] MEDS: Lactulose 10 gm/15 ml Syrup PO SCH (08:35)
[2017-08-27] MEDS: Cholecalciferol 1,000 INTLU TAB PO SCH (09:00)
--- NOTE | 2017-08-27 12:36 | CP.PCM.PN ---
<Miroslava Gonzalez - Last Filed: 08/27/17 12:39> Subjective - Date & Time of Evaluation Date of Evaluation: 08/27/17 Time of Evaluation: 12:34 - Subjective Subjective: No acute overnight events. Pt doing well in acute rehab, working with PT. Denies chest pain, headache, dyspnea, abdominal pain. Objective - Vital Signs/Intake and Output Vital Signs (last 24 hours): Temp Pulse Resp BP Pulse Ox 98.1 F 72 20 135/48 L 96 08/27/17 07:30 08/27/17 08:30 08/27/17 07:30 08/27/17 08:30 08/27/17 07:30 Intake and Output: 08/27/17 08/27/17 06:59 18:59 Intake Total 500 Output Total 1000 Balance -500 - Medications Medications: Current Medications Albuterol Sulfate (Albuterol 0.083% Inhal Bere (2.5 Mg/3 Ml) Ud) 2.5 mg IH Q6 PRN PRN Reason: Shortness of Breath Last Admin: 08/23/17 03:38 Dose: 2.5 mg Albuterol/Ipratropium (Duoneb 3 Mg/0.5 Mg (3 Ml) Ud) 3 ml INH RQID [facility] Last Admin: 08/27/17 12:08 Dose: 3 ml Amlodipine Besylate (Norvasc) 10 mg PO DAILY [facility] Last Admin: 08/27/17 08:29 Dose: 10 mg Aspirin (Aspirin Chewable) 81 mg PO DAILY [facility] Last Admin: 08/27/17 08:28 Dose: 81 mg Atorvastatin Calcium (Lipitor) 40 mg PO HS [facility] Last Admin: 08/26/17 21:45 Dose: 40 mg Carvedilol (Coreg) 25 mg PO Q12 [facility] Last Admin: 08/27/17 08:28 Dose: 25 mg Cholecalciferol (Vitamin D) 2,000 intlu PO DAILY [facility] Last Admin: 08/27/17 09:00 Dose: 2,000 intlu Clopidogrel Bisulfate (Plavix) 75 mg PO DAILY [facility] Last Admin: 08/27/17 08:35 Dose: 75 mg Dextrose (Dextrose 50% Inj) 0 ml IV STAT PRN; Protocol PRN Reason: Hypoglycemia Protocol Dextrose (Glutose 15) 0 gm PO ONCE PRN; Protocol PRN Reason: Hypoglycemia Protocol Famotidine (Pepcid) 20 mg PO DAILY [facility] Last Admin: 08/27/17 08:30 Dose: 20 mg Ferrous Sulfate (Feosol) 325 mg PO TID [facility] Last Admin: 08/27/17 12:26 Dose: 325 mg Finasteride (Proscar) 5 mg PO DAILY [facility] Last Admin: 08/27/17 08:29 Dose: 5 mg Furosemide (Lasix) 40 mg PO DAILY [facility] Last Admin: 08/27/17 08:29 Dose: 40 mg Glucagon (Glucagen Diagnostic Kit) 0 mg IM STAT PRN; Protocol PRN Reason: Hypoglycemia Protocol Heparin Sodium (Porcine) (Heparin) 5,000 units SC Q8 [facility] PRN Reason: Protocol Last Admin: 08/27/17 06:26 Dose: 5,000 units Ciprofloxacin (Cipro 400mg/200ml Dsw) 400 mg in 200 mls @ 200 mls/hr IVPB Q12@ 0700,1900 [facility] PRN Reason: Protocol Last Admin: 08/27/17 06:26 Dose: 200 mls/hr Insulin Human Lispro (Humalog) 0 units SC ACHS [facility] PRN Reason: Protocol Last Admin: 08/27/17 12:25 Dose: Not Given Insulin Human Lispro (Humalog) 16 units SC BID@0730,1700 [facility] Last Admin: 08/27/17 07:30 Dose: 16 unit Lactobacillus Acidophilus (Bacid Acidophilus) 1 cap PO BID [facility] Last Admin: 08/27/17 08:35 Dose: 1 cap Lactulose (Enulose) 10 gm PO DAILY [facility] Last Admin: 08/27/17 08:35 Dose: 10 gm Latanoprost (Xalatan Opht) 1 drop OU HS [facility] Last Admin: 08/26/17 21:45 Dose: 1 drop Lisinopril (Zestril) 20 mg PO DAILY [facility] Last Admin: 08/27/17 08:30 Dose: 20 mg Multivitamins/Minerals (Therapeutic-M Tab) 1 tab PO DAILY [facility] Last Admin: 08/27/17 08:29 Dose: 1 tab Ondansetron HCl (Zofran Inj) 4 mg IVP Q6 PRN PRN Reason: Nausea/Vomiting Last Admin: 08/22/17 05:54 Dose: 4 mg Fluticasone/Salmeterol (Advair Diskus 250/50) 1 puff IH Q12 [facility] Last Admin: 08/27/17 08:27 Dose: 1 puff Sennosides (Senokot Tab) 17.2 mg PO [facility] Last Admin: 08/26/17 21:47 Dose: 17.2 mg Tamsulosin HCl (Flomax) 0.8 mg PO [facility] Last Admin: 08/26/17 21:45 Dose: 0.8 mg - Labs Labs: 08/26/17 06:05 08/24/17 11:51 - Constitutional Appears: No Acute Distress, Other (breathing in RA, R sided facial droop ) - Head Exam Head Exam: NORMAL INSPECTION - ENT Exam ENT Exam: Mucous Membranes Moist - Respiratory Exam Respiratory Exam: Clear to Ausculation Bilateral, NORMAL BREATHING PATTERN. absent: Rhonchi, Wheezes - Cardiovascular Exam Cardiovascular Exam: REGULAR RHYTHM, +S1, +S2 - GI/Abdominal Exam GI & Abdominal Exam: Soft, Normal Bowel Sounds. absent: Tenderness - Extremities Exam Extremities Exam: Normal Inspection. 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 Acute Stroke, L temporal/occipital junction (08/12) and acute infract L frontal lobe (08/13) -Neuro on board; cont meds; If the patient further declines with mental status, to repeat CT scan of the head without contrast. -c/w Aspirin and Plavix -c/w modified dysphagia diet -acute rehab, stable UTI -UA 08/20 back; sig for trace leukes and WBC -likely hospital acquired; culture neg -c/w cipro 400 Q12 x 14 days (08/21/17) D7/14 Urinary retention -stable -likely 2/2 acute stroke, with baseline BPH -c/w flomax 0.8mg, Finestride -cont hollis -will need consult urology; follow up recs DM2 on insulin -c/w to 16U BID -Correction scale HTN -controlled -C/w Lisinopril 10daily, 10mg Norvasc, Carvidilol 25mg BID Normocytic Anemia -stable -iron studies appreciated, low iron with normal ferritin -c/w Iron PO -FOBT pos, ext hemorrhoids -GI consulted; no acute intervention. -c/w Famotidine started. Low vitamin D -Vit D level <12.8 -c/w 2000mg vit D daily CAD s/p stent x 4 -EKG: Sinus bradycardia with occasional premature ventricular complexes, Left ventricular hypertrophy with repolarization abnormality -echo normal LV, EF 55-60% -c/w Coreg, Statin, ASA and plavix History of Diastolic HF -Last ECHO from 11/2013 --> Normal LV syst function; Concentric LVH; Impaired Diastolic function -echo normal LV, EF 55-60% -Continue Lipitor 40 mg, ASA 81mg -Out patient Cardiology: Dr. Carlos Prophylaxis -DVT ppx c/w heparin -c/w probiotic <Maria Fernanda Whitaker - Last Filed: 08/27/17 13:11> Objective - Vital Signs/Intake and Output Vital Signs (last 24 hours): Temp Pulse Resp BP Pulse Ox 98.1 F 72 20 135/48 L 96 08/27/17 07:30 08/27/17 08:30 08/27/17 07:30 08/27/17 08:30 08/27/17 07:30 Intake and Output: 08/27/17 08/27/17 06:59 18:59 Intake Total 500 Output Total 1000 Balance -500 - Medications Medications: Current Medications Albuterol Sulfate (Albuterol 0.083% Inhal Bere (2.5 Mg/3 Ml) Ud) 2.5 mg IH Q6 PRN PRN Reason: Shortness of Breath Last Admin: 08/23/17 03:38 Dose: 2.5 mg Albuterol/Ipratropium (Duoneb 3 Mg/0.5 Mg (3 Ml) Ud) 3 ml INH RQID [facility] Last Admin: 08/27/17 12:08 Dose: 3 ml Amlodipine Besylate (Norvasc) 10 mg PO DAILY [facility] Last Admin: 08/27/17 08:29 Dose: 10 mg Aspirin (Aspirin Chewable) 81 mg PO DAILY [facility] Last Admin: 08/27/17 08:28 Dose: 81 mg Atorvastatin Calcium (Lipitor) 40 mg PO HS [facility] Last Admin: 08/26/17 21:45 Dose: 40 mg Carvedilol (Coreg) 25 mg PO Q12 [facility] Last Admin: 08/27/17 08:28 Dose: 25 mg Cholecalciferol (Vitamin D) 2,000 intlu PO DAILY [facility] Last Admin: 08/27/17 09:00 Dose: 2,000 intlu Clopidogrel Bisulfate (Plavix) 75 mg PO DAILY [facility] Last Admin: 08/27/17 08:35 Dose: 75 mg Dextrose (Dextrose 50% Inj) 0 ml IV STAT PRN; Protocol PRN Reason: Hypoglycemia Protocol Dextrose (Glutose 15) 0 gm PO ONCE PRN; Protocol PRN Reason: Hypoglycemia Protocol Famotidine (Pepcid) 20 mg PO DAILY [facility] Last Admin: 08/27/17 08:30 Dose: 20 mg Ferrous Sulfate (Feosol) 325 mg PO TID [facility] Last Admin: 08/27/17 12:26 Dose: 325 mg Finasteride (Proscar) 5 mg PO DAILY [facility] Last Admin: 08/27/17 08:29 Dose: 5 mg Furosemide (Lasix) 40 mg PO DAILY [facility] Last Admin: 08/27/17 08:29 Dose: 40 mg Glucagon (Glucagen Diagnostic Kit) 0 mg IM STAT PRN; Protocol PRN Reason: Hypoglycemia Protocol Heparin Sodium (Porcine) (Heparin) 5,000 units SC Q8 [facility] PRN Reason: Protocol Last Admin: 08/27/17 06:26 Dose: 5,000 units Ciprofloxacin (Cipro 400mg/200ml Dsw) 400 mg in 200 mls @ 200 mls/hr IVPB Q12@ 0700,1900 [facility] PRN Reason: Protocol Last Admin: 08/27/17 06:26 Dose: 200 mls/hr Insulin Human Lispro (Humalog) 0 units SC ACHS [facility] PRN Reason: Protocol Last Admin: 08/27/17 12:25 Dose: Not Given Insulin Human Lispro (Humalog) 16 units SC BID@0730,1700 [facility] Last Admin: 08/27/17 07:30 Dose: 16 unit Lactobacillus Acidophilus (Bacid Acidophilus) 1 cap PO BID [facility] Last Admin: 08/27/17 08:35 Dose: 1 cap Lactulose (Enulose) 10 gm PO DAILY [facility] Last Admin: 08/27/17 08:35 Dose: 10 gm Latanoprost (Xalatan Opht) 1 drop OU [facility] Last Admin: 08/26/17 21:45 Dose: 1 drop Lisinopril (Zestril) 20 mg PO DAILY [facility] Last Admin: 08/27/17 08:30 Dose: 20 mg Multivitamins/Minerals (Therapeutic-M Tab) 1 tab PO DAILY [facility] Last Admin: 08/27/17 08:29 Dose: 1 tab Ondansetron HCl (Zofran Inj) 4 mg IVP Q6 PRN PRN Reason: Nausea/Vomiting Last Admin: 08/22/17 05:54 Dose: 4 mg Fluticasone/Salmeterol (Advair Diskus 250/50) 1 puff IH Q12 [facility] Last Admin: 08/27/17 08:27 Dose: 1 puff Sennosides (Senokot Tab) 17.2 mg PO [facility] Last Admin: 08/26/17 21:47 Dose: 17.2 mg Tamsulosin HCl (Flomax) 0.8 mg PO [facility] Last Admin: 08/26/17 21:45 Dose: 0.8 mg - Labs Labs: 08/26/17 06:05 08/24/17 11:51 Attending/Attestation - Attestation I have personally seen and examined this patient.: Yes I have fully participated in the care of the patient.: Yes I have reviewed all pertinent clinical information, including history, physical exam and plan: Yes Notes (Text): 08/27/17 13:11 Attestation Attending Note Patient seen and examined. Still weak on right side. Case discussed with resident. Agree with findings and plan.
--- NOTE | 2017-08-27 13:12 | PSY.TMCNF ---
Nursing - Vital Signs Vital Signs (Last 8 hours): Vital Signs 08/27/17 08/27/17 08/27/17 07:30 08:28 08:29 Temperature 98.1 F Pulse Rate 72 72 72 Respiratory 20 Rate Blood Pressure 135/48 L 135/48 L 135/48 L O2 Sat by Pulse 96 Oximetry 08/27/17 08:30 Temperature Pulse Rate 72 Respiratory Rate Blood Pressure 135/48 L O2 Sat by Pulse Oximetry Pain: 0 - Medications/Other Issues Comment: Pt at moderate nutritional risk. 1. Pt to consume 75-100% of meals. 2. Blood glucoses to be between 70-180 mg/dl. Follow-up due on 08/27/2017 - Bladder Management Bladder Pattern: Retention Voiding Method: Indwelling Catheter - Bowel Management Bowel Pattern: Incontinent - Goals/Time Frame Comments: Pt was seen sitting up in bed with his eyes opened at times. As per MINESWEEPING OFFICER, pt presents with severe expressive aphasia and required to be asked one question at a time. Pt's yes/no presented unreliable. Pt shook head yes to television and listening to music. Will speak with family to determine pt's leisure interests. Physical Therapy - Bed Mobility Bed Mobility: Maximum Assistance, Dependent Comment: rolling L with total A. rolling R with max. supine to/from sit with max A - Transfers Sit to Stand: Moderate Assistance, Maximum Assistance - Ambulation Level of Assistance: Moderate Assistance, Maximum Assistance Distance (ft.): 10 - Stair Negotiation Stairs: Level of Assistance: Not Tested - Standing Balance Static Stand: Moderate Assistance Dynamic Stand: Moderate Assistance, Maximal Assistance - Pain Pain (assessed during therapy session): 6 Management Techniques: Position Change Comment: pt expresses discomort at catheter site - Insight/Carryover Insight/Carryover: Fair - Patient/Family Education Comment: -safety, therapy schedule, therapy goals, POC, stroke recovery, - Assessment/Plan Assessment: Pt participates in 1:1 recreation therapy sessions following encouragement. Pt presents with decrease arousal and decrease initiation throughout leisure tasks. Pt's barriers to participation is discomfort, pain, and fatigue. Pt presents with severe expressive aphasia and participates in identification tasks. Pt participated in dominoes task and demonstrated decrease carryover of task rules independently. When aroused, pt does well with tasks and presents with decrease visual scanning on the R side. Pt will continue to benefit from participating in recreation therapy sessions throughout stay on unit. - Goals Timeframe: 7 days Goals: transfers with mod A. bed mobility min A. feeding I/s/u. grooming I/s/ u. caregiver to be I with transfers/self care. improve RUE strength to 3-/5 grossly - Provider Therapist: Anh Gonzalez PT, DPT License Number: [id number] Occupational Therapy - Arousal/Attention/Orientation Patient Orientation: Person, Appropriate to Age, Appropriate to Situation - ADL/IADL Self Feeding: Minimal Assistance, Moderate Assistance Grooming: Moderate Assistance Dressing-Upper Extremity: Maximum Assistance Dressing-Lower Extremity: Maximum Assistance - Sitting Balance Static Sitting: Minimal Assistance Dynamic Sitting: Maximal Assistance - Transfers Wheelchair to Bed Transfers: Verbal Cues, Set-up Help, Maximum Assistance Toilet Transfers: Dependent - Wheelchair Management Level of Assistance: Dependent - Upper Extremity Status Right Upper Extremity Comment: PROM IS WLS, but no active ROM noted in R shoulder, elbowm, forearm, wrist--but mass grasp/release noted Left Upper Extremity Comment: AROM is WFLS - Pain Pain (assessed during therapy session): 6 Alleviating Techniques: Position Change Comment: pt expresses discomort at catheter site - Insight/Carryover Insight/Carryover: Fair - Patient/Family Education Comment: -safety, therapy schedule, therapy goals, POC, stroke recovery, - Assessment/Plan Assessment: Pt participates in 1:1 recreation therapy sessions following encouragement. Pt presents with decrease arousal and decrease initiation throughout leisure tasks. Pt's barriers to participation is discomfort, pain, and fatigue. Pt presents with severe expressive aphasia and participates in identification tasks. Pt participated in dominoes task and demonstrated decrease carryover of task rules independently. When aroused, pt does well with tasks and presents with decrease visual scanning on the R side. Pt will continue to benefit from participating in recreation therapy sessions throughout stay on unit. - Goals Timeframe: 7 days Goals: transfers with mod A. bed mobility min A. feeding I/s/u. grooming I/s/ u. caregiver to be I with transfers/self care. improve RUE strength to 3-/5 grossly - Provider Therapist: REILLY Tran/Pop Speech Therapy - Consult Information Patient on Program: Yes Medical Diagnosis: CVA Treatment Diagnosis: -moderate receptive/moderate expressive aphasia. -moderate -severe apraxia of speech. -moderate dysarthria. -moderate oral dysphagia/ mild pharyngeal dysphagia - Assessment Expressive Language Impairment: Moderate Receptive Language Impairment: Mild Speech/Articulation Impairment: Severe Comment: mod-severe Dysphagia/Swallowing Impairment: Moderate - Plan Assessment: Pt participates in 1:1 recreation therapy sessions following encouragement. Pt presents with decrease arousal and decrease initiation throughout leisure tasks. Pt's barriers to participation is discomfort, pain, and fatigue. Pt presents with severe expressive aphasia and participates in identification tasks. Pt participated in dominoes task and demonstrated decrease carryover of task rules independently. When aroused, pt does well with tasks and presents with decrease visual scanning on the R side. Pt will continue to benefit from participating in recreation therapy sessions throughout stay on unit. - Provider Therapist: Natalie Burgos License Number: [id number] Recreational Therapy - Participation Participation: Participates in Individual and/or Group Sessions - Attendance Attendance: 3-5 times per week - Activities Leisure Activities: Cards and Games - Socialization Level of Socialization: Requires 1:1 guidance to respond, Minimal initiation of interaction to request basic needs, Minimal or no response, Socialization severely limited - Assessment Assessment/Plan: Pt participates in 1:1 recreation therapy sessions following encouragement. Pt presents with decrease arousal and decrease initiation throughout leisure tasks. Pt's barriers to participation is discomfort, pain, and fatigue. Pt presents with severe expressive aphasia and participates in identification tasks. Pt participated in dominoes task and demonstrated decrease carryover of task rules independently. When aroused, pt does well with tasks and presents with decrease visual scanning on the R side. Pt will continue to benefit from participating in recreation therapy sessions throughout stay on unit. Problems Currently Limiting Participation: expressive aphasia, fatigue, decrease arousal level, decrease command following, decrease leisure awareness level Goals and Time Frame: Pt will be encouraged to participate in 1:1 and group recreation therapy sessions 3-5x week for at least 40 minutes to improve arousal level, command following, number and object identification, direction following, and attention to task. - Provider Therapist: Lety Amin, IT SECURITY ADMINISTRATOR #[id number] Nutrition - Current Diet Current Diet/ Supplement/ Feedings: Moderate consistent CHO pureed thin liquids - Appetite Percent Meal Consumed: 75-100% - Assessment/Goals/Time Frame Assessment/Goals/Time Frame: Pt at moderate nutritional risk. 1. Pt to consume 75-100% of meals. 2. Blood glucoses to be between 70-180 mg/dl. Follow-up due on 08/27/2017 - Provider Provider: Amairani Alicea RD Case Management - Psychosocial Assessment Support Systems: Jenn Henriquez (granddaughter)- [phone], . Kavya Ibarra (daughter)- [phone], . Ramila Philippe (daughter)- [phone] Psychological Interventions/Needs: Patient is alert with receptive and expressive aphasia Discharge Concerns: Patient currently requiring max A for functional mobility, patient with incontinence and apashia Patient/Family Meeting: CM met with patient and CM spoke with family later in the day Intervention/Goal/Outcome:: 1. CHARISSE vs home with increased care. 2. Patient to be reteamed next week for most appropriate discharge needs and support. - Discharge Plan Discharge Plan: Subacute senior care Services: vs. 24 hour care at home - Provider Provider: HELEN Emerson, NUCLEAR ENGINEER License Number: [id number] Rehabilitation Plan - Treatment Plan Treatment Plan: Physical Therapy, Occupational Therapy, Speech, Dietary, Patient /Family Education - Discharge Plan Estimated Date of Discharge: 09/12/17 Discharge to: Subacute
--- NOTE | 2017-08-27 19:07 | CP.PCM.PN ---
Subjective - Date & Time of Evaluation Date of Evaluation: 08/27/17 Time of Evaluation: 19:06 - Subjective Subjective: Patient seen in the room with daughter present discussed current care and goals and she understands that CHARISSE is likely to be necessary he looks better and is more energetic ambulating 10' no pain continue current care Objective - Vital Signs/Intake and Output Vital Signs (last 24 hours): Temp Pulse Resp BP Pulse Ox 98.1 F 72 20 135/48 L 96 08/27/17 13:06 08/27/17 13:06 08/27/17 13:06 08/27/17 13:06 08/27/17 07:30 Intake and Output: 08/27/17 08/28/17 18:59 06:59 Intake Total 700 Output Total 850 Balance -150 - Medications Medications: Current Medications Albuterol Sulfate (Albuterol 0.083% Inhal Bere (2.5 Mg/3 Ml) Ud) 2.5 mg IH Q6 PRN PRN Reason: Shortness of Breath Last Admin: 08/23/17 03:38 Dose: 2.5 mg Albuterol/Ipratropium (Duoneb 3 Mg/0.5 Mg (3 Ml) Ud) 3 ml INH RQID [facility] Last Admin: 08/27/17 15:31 Dose: Not Given Amlodipine Besylate (Norvasc) 10 mg PO DAILY [facility] Last Admin: 08/27/17 08:29 Dose: 10 mg Aspirin (Aspirin Chewable) 81 mg PO DAILY [facility] Last Admin: 08/27/17 08:28 Dose: 81 mg Atorvastatin Calcium (Lipitor) 40 mg PO HS [facility] Last Admin: 08/26/17 21:45 Dose: 40 mg Carvedilol (Coreg) 25 mg PO Q12 [facility] Last Admin: 08/27/17 08:28 Dose: 25 mg Cholecalciferol (Vitamin D) 2,000 intlu PO DAILY [facility] Last Admin: 08/27/17 09:00 Dose: 2,000 intlu Clopidogrel Bisulfate (Plavix) 75 mg PO DAILY [facility] Last Admin: 08/27/17 08:35 Dose: 75 mg Dextrose (Dextrose 50% Inj) 0 ml IV STAT PRN; Protocol PRN Reason: Hypoglycemia Protocol Dextrose (Glutose 15) 0 gm PO ONCE PRN; Protocol PRN Reason: Hypoglycemia Protocol Famotidine (Pepcid) 20 mg PO DAILY [facility] Last Admin: 08/27/17 08:30 Dose: 20 mg Ferrous Sulfate (Feosol) 325 mg PO TID [facility] Last Admin: 08/27/17 17:12 Dose: 325 mg Finasteride (Proscar) 5 mg PO DAILY [facility] Last Admin: 08/27/17 08:29 Dose: 5 mg Furosemide (Lasix) 40 mg PO DAILY [facility] Last Admin: 08/27/17 08:29 Dose: 40 mg Glucagon (Glucagen Diagnostic Kit) 0 mg IM STAT PRN; Protocol PRN Reason: Hypoglycemia Protocol Heparin Sodium (Porcine) (Heparin) 5,000 units SC Q8 [facility] PRN Reason: Protocol Last Admin: 08/27/17 13:16 Dose: 5,000 units Ciprofloxacin (Cipro 400mg/200ml Dsw) 400 mg in 200 mls @ 200 mls/hr IVPB Q12@ 0700,1900 [facility] PRN Reason: Protocol Last Admin: 08/27/17 18:11 Dose: 200 mls/hr Insulin Human Lispro (Humalog) 0 units SC ACHS [facility] PRN Reason: Protocol Last Admin: 08/27/17 17:11 Dose: Not Given Insulin Human Lispro (Humalog) 16 units SC BID@0730,1700 [facility] Last Admin: 08/27/17 17:11 Dose: 16 unit Lactobacillus Acidophilus (Bacid Acidophilus) 1 cap PO BID [facility] Last Admin: 08/27/17 17:12 Dose: 1 cap Lactulose (Enulose) 10 gm PO DAILY [facility] Last Admin: 08/27/17 08:35 Dose: 10 gm Latanoprost (Xalatan Opht) 1 drop OU HS [facility] Last Admin: 08/26/17 21:45 Dose: 1 drop Lisinopril (Zestril) 20 mg PO DAILY [facility] Last Admin: 08/27/17 08:30 Dose: 20 mg Multivitamins/Minerals (Therapeutic-M Tab) 1 tab PO DAILY [facility] Last Admin: 08/27/17 08:29 Dose: 1 tab Ondansetron HCl (Zofran Inj) 4 mg IVP Q6 PRN PRN Reason: Nausea/Vomiting Last Admin: 08/22/17 05:54 Dose: 4 mg Fluticasone/Salmeterol (Advair Diskus 250/50) 1 puff IH Q12 [facility] Last Admin: 08/27/17 08:27 Dose: 1 puff Sennosides (Senokot Tab) 17.2 mg PO [facility] Last Admin: 08/26/17 21:47 Dose: 17.2 mg Tamsulosin HCl (Flomax) 0.8 mg PO [facility] Last Admin: 08/26/17 21:45 Dose: 0.8 mg - Labs Labs: 08/26/17 06:05 08/24/17 11:51
[2017-08-27] MEDS: Latanoprost 0.005% Opht SOUTION OU SCH (21:38)
[2017-08-28] MEDS: Ciprofloxacin 400mg/200ml D5W 400 MG/200 ML BAG IVPB SCH ×2 (06:25→18:14)
[2017-08-28] MEDS: Albuterol-Ipratrop 3 mg / 0.5 (3 ml) UD INH SCH ×5 (06:59→19:25)
[2017-08-28] MEDS: Insulin Lispro (humaLOG) 100 Units/ml Inj SC SCH ×4 (07:09→22:07)
[2017-08-28] MEDS: Lactobacillus Acidophilus 500 MU Cap PO SCH ×2 (08:03→16:49)
[2017-08-28] MEDS: Fluticasone-Salmeterol 250-50mcg Diskus IH SCH ×2 (08:03→21:13)
[2017-08-28] MEDS: Lactulose 10 gm/15 ml Syrup PO SCH (08:04)
[2017-08-28] MEDS: Cholecalciferol 1,000 INTLU TAB PO SCH (08:07)
[2017-08-28] MEDS: Multivitamin With Minerals Tab PO SCH (08:07)
[2017-08-28] MEDS: Insulin Lispro Mix 75/25 100 units/ml (HumaLog) 10ml SC SCH ×2 (08:07→16:49)
--- NOTE | 2017-08-28 09:39 | CP.PCM.PN ---
Subjective - Date & Time of Evaluation Date of Evaluation: 08/28/17 Time of Evaluation: 09:38 - Subjective Subjective: Mr. Fred Banegas was seen and examined at the bedside. His speech has improved from aphasia. He is able to verbalize few serbian words. He participates in a pleasant conversation. He is able to follow some commands and able to move minimally in his bed. He remains with right facial droop, right side weakness, tolerating therapy sessions. There was no untoward events overnight. Objective - Vital Signs/Intake and Output Vital Signs (last 24 hours): Temp Pulse Resp BP Pulse Ox 98.2 F 70 20 127/50 L 99 08/28/17 08:43 08/28/17 08:43 08/28/17 08:43 08/28/17 08:43 08/28/17 08:43 Intake and Output: 08/28/17 08/28/17 06:59 18:59 Intake Total 440 Output Total 1000 Balance -560 - Medications Medications: Current Medications Albuterol Sulfate (Albuterol 0.083% Inhal Bere (2.5 Mg/3 Ml) Ud) 2.5 mg IH Q6 PRN PRN Reason: Shortness of Breath Last Admin: 08/23/17 03:38 Dose: 2.5 mg Albuterol/Ipratropium (Duoneb 3 Mg/0.5 Mg (3 Ml) Ud) 3 ml INH RQID [facility] Last Admin: 08/28/17 06:59 Dose: 3 ml Amlodipine Besylate (Norvasc) 10 mg PO DAILY [facility] Last Admin: 08/28/17 08:06 Dose: 10 mg Aspirin (Aspirin Chewable) 81 mg PO DAILY [facility] Last Admin: 08/28/17 08:05 Dose: 81 mg Atorvastatin Calcium (Lipitor) 40 mg PO HS [facility] Last Admin: 08/27/17 21:39 Dose: 40 mg Carvedilol (Coreg) 25 mg PO Q12 [facility] Last Admin: 08/28/17 08:05 Dose: 25 mg Cholecalciferol (Vitamin D) 2,000 intlu PO DAILY [facility] Last Admin: 08/28/17 08:07 Dose: 2,000 intlu Clopidogrel Bisulfate (Plavix) 75 mg PO DAILY [facility] Last Admin: 08/28/17 08:06 Dose: 75 mg Dextrose (Dextrose 50% Inj) 0 ml IV STAT PRN; Protocol PRN Reason: Hypoglycemia Protocol Dextrose (Glutose 15) 0 gm PO ONCE PRN; Protocol PRN Reason: Hypoglycemia Protocol Famotidine (Pepcid) 20 mg PO DAILY [facility] Last Admin: 08/28/17 08:06 Dose: 20 mg Ferrous Sulfate (Feosol) 325 mg PO TID [facility] Last Admin: 08/28/17 08:05 Dose: 325 mg Finasteride (Proscar) 5 mg PO DAILY [facility] Last Admin: 08/28/17 08:06 Dose: 5 mg Furosemide (Lasix) 40 mg PO DAILY [facility] Last Admin: 08/28/17 08:06 Dose: 40 mg Glucagon (Glucagen Diagnostic Kit) 0 mg IM STAT PRN; Protocol PRN Reason: Hypoglycemia Protocol Heparin Sodium (Porcine) (Heparin) 5,000 units SC Q8 [facility]RE[facility] PRN Reason: Protocol Last Admin: 08/28/17 06:21 Dose: 5,000 units Ciprofloxacin (Cipro 400mg/200ml Dsw) 400 mg in 200 mls @ 200 mls/hr IVPB Q12@ 0700,1900 [facility] PRN Reason: Protocol Last Admin: 08/28/17 06:25 Dose: 200 mls/hr Insulin Human Lispro (Humalog) 0 units SC ACHS [facility] PRN Reason: Protocol Last Admin: 08/28/17 07:09 Dose: Not Given Insulin Lispro Protam/Lispro Human (Humalog Mix 75/25) 16 units SC BID [facility] Last Admin: 08/28/17 08:07 Dose: 16 units Lactobacillus Acidophilus (Bacid Acidophilus) 1 cap PO BID [facility] Last Admin: 08/28/17 08:03 Dose: 1 cap Lactulose (Enulose) 10 gm PO DAILY [facility] Last Admin: 08/28/17 08:04 Dose: 10 gm Latanoprost (Xalatan Opht) 1 drop OU HS [facility] Last Admin: 08/27/17 21:38 Dose: 1 drop Lisinopril (Zestril) 20 mg PO DAILY [facility] Last Admin: 08/28/17 08:07 Dose: 20 mg Multivitamins/Minerals (Therapeutic-M Tab) 1 tab PO DAILY [facility] Last Admin: 08/28/17 08:07 Dose: 1 tab Ondansetron HCl (Zofran Inj) 4 mg IVP Q6 PRN PRN Reason: Nausea/Vomiting Last Admin: 08/22/17 05:54 Dose: 4 mg Fluticasone/Salmeterol (Advair Diskus 250/50) 1 puff IH Q12 [facility] Last Admin: 08/28/17 08:03 Dose: 1 puff Sennosides (Senokot Tab) 17.2 mg PO HS [facility] Last Admin: 08/27/17 21:38 Dose: 17.2 mg Tamsulosin HCl (Flomax) 0.8 mg PO [facility] Last Admin: 08/27/17 21:46 Dose: 0.8 mg - Labs Labs: 08/26/17 06:05 08/24/17 11:51 - Constitutional Appears: No Acute Distress - Head Exam Head Exam: NORMAL INSPECTION - Neurological Exam Neurological Exam: Alert, Awake Neuro motor strength exam: Left Upper Extremity: 5, Right Upper Extremity: 2/1, Left Lower Extremity: 5, Right Lower Extremity: 2/1 Additional comments: neurological unchanged from previous examination. Assessment and Plan (1) Ischemic stroke Assessment & Plan: Case discussed with Dr. Thomas, continue all current medical, physical, and occupational therapies. Recommend Blood pressure and glycemic control, hydration , Keep head of bed elevated at least 30 degrees angle when in bed. Status: Acute
--- NOTE | 2017-08-28 11:55 | CP.PCM.PCO ---
Assessment & Plan - Assessment and Plan (Free Text) Assessment: 82 YO Male admitted to TCU s/p cva x 2 for rehab, PT/OT. Pt is currently hemodynamically stable. Urology was consulted for urinary retention post CVA with hx of BPH. RN spoke to Dr. Arredondo, and was told to keep the hollis in for another week and then do another trial of voiding. If pt continues to have retention, re-consult urology. This resident was told to cancel the consult, and re-consult in a week if needed.
[2017-08-28] MEDS: Latanoprost 0.005% Opht SOUTION OU SCH (21:15)
[2017-08-29] MEDS: Ciprofloxacin 400mg/200ml D5W 400 MG/200 ML BAG IVPB SCH ×2 (06:00→18:03)
[2017-08-29] MEDS: Insulin Lispro (humaLOG) 100 Units/ml Inj SC SCH ×4 (06:34→21:27)
[2017-08-29 06:48] LABS: BASO % 0.6 % (0.0-2.0); EOS # 0.5 K/uL (0.0-0.7); EOS % 6.1 % (0.0-4.0); HEMOGLOBIN 8.3 g/dL (12.0-18.0); LYMPH # 1.1 K/uL (1.0-4.3); LYMPH % 12.9 % (20.0-40.0); MEAN CELL VOLUME 91.7 fl (80.0-94.0); MEAN CORPUSCULAR HGB CONC 33.8 g/dL (33.0-37.0); MEAN PLATELET VOLUME 9.5 fl (7.2-11.7); MONO # 1.1 K/uL (0.0-0.8); MONO % 12.5 % (0.0-10.0); NEUT # 5.7 K/uL (1.8-7.0); NEUT % 67.9 % (50.0-75.0); NRBC % 0.1 % (0.0-0.0); RBC 2.67 Mil/uL (4.40-5.90); RED CELL DISTRIBUTION WIDTH 14.6 % (11.5-14.5); WHITE BLOOD COUNT 8.4 K/uL (4.8-10.8)
[2017-08-29] MEDS: Albuterol-Ipratrop 3 mg / 0.5 (3 ml) UD INH SCH ×4 (07:23→19:59)
[2017-08-29 07:38] LABS: CALCIUM 8.7 mg/dL (8.4-10.2)
[2017-08-29] MEDS: Fluticasone-Salmeterol 250-50mcg Diskus IH SCH ×2 (08:14→21:13)
[2017-08-29] MEDS: Insulin Lispro Mix 75/25 100 units/ml (HumaLog) 10ml SC SCH (08:16)
[2017-08-29] MEDS: Lactulose 10 gm/15 ml Syrup PO SCH (08:16)
[2017-08-29] MEDS: Multivitamin With Minerals Tab PO SCH (08:18)
[2017-08-29] MEDS: Cholecalciferol 1,000 INTLU TAB PO SCH (08:18)
[2017-08-29] MEDS: Lactobacillus Acidophilus 500 MU Cap PO SCH ×2 (08:20→16:51)
--- NOTE | 2017-08-29 10:14 | CP.PCM.PN ---
<Minda Dorsey - Last Filed: 08/29/17 10:08> Subjective - Date & Time of Evaluation Date of Evaluation: 08/29/17 Time of Evaluation: 10:10 - Subjective Subjective: Gastroenterology Fellow/PGY5 Progress Note Patient in good spirits and attempts to communicate with hand motions and small phrases. Sitting out to chair with family at bedside. Nursing confirms tolerating diet. No bowel movement for a few days with lactulose administered. No acute events overnight. A 12-point review of systems unable to be obtained with acute CVA and expressive aphasia. Objective - Vital Signs/Intake and Output Vital Signs (last 24 hours): Temp Pulse Resp BP Pulse Ox 97.9 F 76 19 140/58 L 97 08/29/17 07:55 08/29/17 08:19 08/29/17 07:55 08/29/17 08:19 08/29/17 07:55 Intake and Output: 08/29/17 08/29/17 06:59 18:59 Intake Total 550 Output Total 1400 Balance -850 - Medications Medications: Current Medications Albuterol Sulfate (Albuterol 0.083% Inhal Bere (2.5 Mg/3 Ml) Ud) 2.5 mg IH Q6 PRN PRN Reason: Shortness of Breath Last Admin: 08/23/17 03:38 Dose: 2.5 mg Albuterol/Ipratropium (Duoneb 3 Mg/0.5 Mg (3 Ml) Ud) 3 ml INH RQID [facility] Last Admin: 08/29/17 07:23 Dose: 3 ml Amlodipine Besylate (Norvasc) 10 mg PO DAILY [facility] Last Admin: 08/29/17 08:17 Dose: 10 mg Aspirin (Aspirin Chewable) 81 mg PO DAILY [facility] Last Admin: 08/29/17 08:14 Dose: 81 mg Atorvastatin Calcium (Lipitor) 40 mg PO HS [facility] Last Admin: 08/28/17 21:14 Dose: 40 mg Carvedilol (Coreg) 25 mg PO Q12 [facility] Last Admin: 08/29/17 08:15 Dose: 25 mg Cholecalciferol (Vitamin D) 2,000 intlu PO DAILY [facility] Last Admin: 08/29/17 08:18 Dose: 2,000 intlu Clopidogrel Bisulfate (Plavix) 75 mg PO DAILY [facility] Last Admin: 08/29/17 08:18 Dose: 75 mg Dextrose (Dextrose 50% Inj) 0 ml IV STAT PRN; Protocol PRN Reason: Hypoglycemia Protocol Dextrose (Glutose 15) 0 gm PO ONCE PRN; Protocol PRN Reason: Hypoglycemia Protocol Famotidine (Pepcid) 20 mg PO DAILY [facility] Last Admin: 08/29/17 08:18 Dose: 20 mg Ferrous Sulfate (Feosol) 325 mg PO TID [facility] Last Admin: 08/29/17 08:16 Dose: 325 mg Finasteride (Proscar) 5 mg PO DAILY [facility] Last Admin: 08/29/17 08:18 Dose: 5 mg Furosemide (Lasix) 40 mg PO DAILY [facility] Last Admin: 08/29/17 08:17 Dose: 40 mg Glucagon (Glucagen Diagnostic Kit) 0 mg IM STAT PRN; Protocol PRN Reason: Hypoglycemia Protocol Heparin Sodium (Porcine) (Heparin) 5,000 units SC Q8 [facility] PRN Reason: Protocol Last Admin: 08/29/17 05:48 Dose: 5,000 units Ciprofloxacin (Cipro 400mg/200ml Dsw) 400 mg in 200 mls @ 200 mls/hr IVPB Q12@ 0700,1900 [facility] PRN Reason: Protocol Last Admin: 08/29/17 06:00 Dose: 200 mls/hr Insulin Human Lispro (Humalog) 0 units SC ACHS [facility] PRN Reason: Protocol Last Admin: 08/29/17 06:34 Dose: Not Given Insulin Lispro Protam/Lispro Human (Humalog Mix 75/25) 16 units SC BID [facility] Last Admin: 08/29/17 08:16 Dose: 16 units Lactobacillus Acidophilus (Bacid Acidophilus) 1 cap PO BID [facility] Last Admin: 08/29/17 08:20 Dose: 1 cap Lactulose (Enulose) 10 gm PO DAILY [facility] Last Admin: 08/29/17 08:16 Dose: 10 gm Latanoprost (Xalatan Opht) 1 drop OU HS [facility] Last Admin: 08/28/17 21:15 Dose: 1 drop Lisinopril (Zestril) 20 mg PO DAILY [facility] Last Admin: 08/29/17 08:19 Dose: 20 mg Multivitamins/Minerals (Therapeutic-M Tab) 1 tab PO DAILY [facility] Last Admin: 08/29/17 08:18 Dose: 1 tab Ondansetron HCl (Zofran Inj) 4 mg IVP Q6 PRN PRN Reason: Nausea/Vomiting Last Admin: 08/22/17 05:54 Dose: 4 mg Fluticasone/Salmeterol (Advair Diskus 250/50) 1 puff IH Q12 [facility] Last Admin: 08/29/17 08:14 Dose: 1 puff Sennosides (Senokot Tab) 17.2 mg PO [facility] Last Admin: 08/28/17 21:14 Dose: 17.2 mg Tamsulosin HCl (Flomax) 0.8 mg PO [facility] Last Admin: 08/28/17 21:13 Dose: 0.8 mg - Labs Labs: 08/29/17 05:20 08/29/17 05:20 - Constitutional Appears: Non-toxic, No Acute Distress - Head Exam Head Exam: ATRAUMATIC, NORMOCEPHALIC - Eye Exam Eye Exam: EOMI, PERRL. absent: Scleral icterus Pupil Exam: PERRL. absent: Miosis, Mydriatic - ENT Exam ENT Exam: Mucous Membranes Moist, Normal Oropharynx - Neck Exam Neck Exam: Full ROM, Normal Inspection - Respiratory Exam Respiratory Exam: Clear to Ausculation Bilateral. absent: Rales, Rhonchi, Wheezes - Cardiovascular Exam Cardiovascular Exam: RRR, +S1, +S2. absent: Gallop, Rubs - GI/Abdominal Exam GI & Abdominal Exam: Soft, Normal Bowel Sounds. absent: Distended, Firm, Guarding, Tenderness, Organomegaly, Rebound - Extremities Exam Extremities Exam: Normal Inspection. absent: Pedal Edema - Neurological Exam Neurological Exam: Alert, Awake, Motor Sensory Deficit - Psychiatric Exam Psychiatric exam: Normal Affect, Normal Mood - Skin Skin Exam: Dry, Intact, Normal Color, Warm Assessment and Plan - Assessment and Plan (Free Text) Assessment: 82 year old male with PMH of CVA/TIA, CAD s/p 4 stents, Colon cancer s/p resection 1960s, dCHF EF 55-60% (08/2017), HTN, HLD, T2DM, and CKD Stage 3 presenting with right sided weakness. GI consultation for anemia and FOBT positive. Active treatment of left frontotemporal/occipital CVA complicated by right-sided weakness and improving expressive aphasia. Plan: -H/H remains stable -continue anti-secretory Pepcid in setting of dual anti-platelet therapy and DVT PPx -FOBT positive likely 2/2 to external hemorrhoid -constipation prevention- Miralax daily -medical optimization and appropriate timing recommendation from neurology on likely holding of Plavix for future outpatient elective endoscopic exams to decrease bleedng risk during diagnostic and/or treatment approaches during procedure <Crispin Gonzalez - Last Filed: 09/12/17 09:26> Objective - Vital Signs/Intake and Output Vital Signs (last 24 hours): Temp Pulse Resp BP Pulse Ox 97.1 F L 65 19 126/70 98 09/12/17 09:01 09/12/17 09:01 09/12/17 09:01 09/12/17 09:01 09/12/17 09:01 Intake and Output: 09/12/17 09/12/17 06:59 18:59 Intake Total 200 Output Total 1400 Balance -1200 - Medications Medications: Current Medications Acetaminophen (Tylenol 325mg Tab) 650 mg PO Q6 PRN PRN Reason: PAIN SCALE 1-10. Last Admin: 09/09/17 00:30 Dose: 650 mg Albuterol Sulfate (Albuterol 0.083% Inhal Bere (2.5 Mg/3 Ml) Ud) 2.5 mg IH Q6 PRN PRN Reason: Shortness of Breath Last Admin: 08/23/17 03:38 Dose: 2.5 mg Albuterol/Ipratropium (Duoneb 3 Mg/0.5 Mg (3 Ml) Ud) 3 ml INH RQID [facility] Last Admin: 09/12/17 08:06 Dose: 3 ml Amlodipine Besylate (Norvasc) 10 mg PO DAILY [facility] Last Admin: 09/12/17 08:29 Dose: 10 mg Aspirin (Aspirin Chewable) 81 mg PO DAILY [facility] Last Admin: 09/12/17 08:28 Dose: 81 mg Atorvastatin Calcium (Lipitor) 40 mg PO HS [facility] Last Admin: 09/11/17 21:54 Dose: 40 mg Carvedilol (Coreg) 25 mg PO Q12 [facility] Last Admin: 09/12/17 08:32 Dose: 25 mg Cholecalciferol (Vitamin D) 2,000 intlu PO DAILY [facility] Last Admin: 09/12/17 08:31 Dose: 2,000 intlu Clopidogrel Bisulfate (Plavix) 75 mg PO DAILY [facility] Last Admin: 07/12/18 08:26 Dose: 75 mg Clotrimazole (Lotrimin 1% Cream) 1 applic TOP BID [facility] Last Admin: 09/12/17 08:25 Dose: 1 applic Dextrose (Dextrose 50% Inj) 0 ml IV STAT PRN; Protocol PRN Reason: Hypoglycemia Protocol Dextrose (Glutose 15) 0 gm PO ONCE PRN; Protocol PRN Reason: Hypoglycemia Protocol Dextrose (Dextrose 50% Inj) 0 ml IV STAT PRN; Protocol PRN Reason: Hypoglycemia Protocol Dextrose (Glutose 15) 0 gm PO ONCE PRN; Protocol PRN Reason: Hypoglycemia Protocol Famotidine (Pepcid) 20 mg PO DAILY [facility] Last Admin: 09/12/17 08:29 Dose: 20 mg Ferrous Sulfate (Feosol) 325 mg PO TID [facility] Last Admin: 09/12/17 08:27 Dose: 325 mg Finasteride (Proscar) 5 mg PO DAILY [facility] Last Admin: 09/12/17 08:29 Dose: 5 mg Furosemide (Lasix) 40 mg PO DAILY [facility] Last Admin: 09/12/17 08:28 Dose: 40 mg Glucagon (Glucagen Diagnostic Kit) 0 mg IM STAT PRN; Protocol PRN Reason: Hypoglycemia Protocol Glucagon (Glucagen Diagnostic Kit) 0 mg IM STAT PRN; Protocol PRN Reason: Hypoglycemia Protocol Heparin Sodium (Porcine) (Heparin) 5,000 units SC Q8 [facility] PRN Reason: Protocol Last Admin: 09/12/17 06:20 Dose: 5,000 units Insulin Lispro Protam/Lispro Human (Humalog Mix 75/25) 12 units SC BID [facility] Last Admin: 09/12/17 08:26 Dose: 12 units Lactulose (Enulose) 10 gm PO DAILY [facility] Last Admin: 09/12/17 08:27 Dose: 10 gm Latanoprost (Xalatan Opht) 1 drop OU HS [facility] Last Admin: 09/11/17 21:55 Dose: 1 drop Lidocaine HCl (Xylocaine 2%) 1 applic TOP ONCE PRN PRN Reason: Pain, moderate (4-7) Last Admin: 09/09/17 08:50 Dose: 1 applic Lisinopril (Zestril) 20 mg PO DAILY [facility] Last Admin: 09/12/17 08:27 Dose: 20 mg Multi-Ingredient Ointment (Hydrophor Oint) 1 applic TOP TID [facility] Last Admin: 09/12/17 08:25 Dose: 1 applic Multivitamins/Minerals (Therapeutic-M Tab) 1 tab PO DAILY [facility] Last Admin: 09/12/17 08:29 Dose: 1 tab Mupirocin (Bactroban Ointment) 1 applic TOP BID [facility] Last Admin: 09/12/17 08:28 Dose: 1 applic Ondansetron HCl (Zofran Inj) 4 mg IVP Q6 PRN PRN Reason: Nausea/Vomiting Last Admin: 08/22/17 05:54 Dose: 4 mg Psyllium Hydrophilic Mucilloid (Hydrocil Instant) 1 pkt PO DAILY [facility] Last Admin: 09/12/17 08:27 Dose: 1 pkt Fluticasone/Salmeterol (Advair Diskus 250/50) 1 puff IH Q12 [facility] Last Admin: 09/12/17 08:25 Dose: 1 puff Sennosides (Senokot Tab) 17.2 mg PO HS [facility] Last Admin: 09/11/17 21:55 Dose: 17.2 mg Tamsulosin HCl (Flomax) 0.8 mg PO HS [facility] Last Admin: 09/11/17 21:54 Dose: 0.8 mg - Labs Labs: 09/06/17 05:15 09/12/17 05:15 PT 12.6 Seconds (9.8-13.1) 09/06/17 05:15 INR 1.1 (0.9-1.2) 09/06/17 05:15 Assessment and Plan - Assessment and Plan (Free Text) Plan: patient seen and examined discussed with fellow agree with above Crispin Gonzalez MD, phD
--- NOTE | 2017-08-29 10:56 | CP.PCM.PN ---
Subjective - Date & Time of Evaluation Date of Evaluation: 08/29/17 Time of Evaluation: 10:56 - Subjective Subjective: Mr. Fred Banegas was seen and examined at the bedside. His speech has improved from aphasia. He is able to verbalize several yemeni words and able to state words even in Vietnamese. He participates in a pleasant conversation. He is able to follow some commands and able to move minimally in his bed. He remains with right facial droop, right side weakness, tolerating therapy sessions. There was no untoward events overnight. Objective - Vital Signs/Intake and Output Vital Signs (last 24 hours): Temp Pulse Resp BP Pulse Ox 97.9 F 76 19 140/58 L 97 08/29/17 07:55 08/29/17 08:19 08/29/17 07:55 08/29/17 08:19 08/29/17 07:55 Intake and Output: 08/29/17 08/29/17 06:59 18:59 Intake Total 550 Output Total 1400 Balance -850 - Medications Medications: Current Medications Albuterol Sulfate (Albuterol 0.083% Inhal Bere (2.5 Mg/3 Ml) Ud) 2.5 mg IH Q6 PRN PRN Reason: Shortness of Breath Last Admin: 08/23/17 03:38 Dose: 2.5 mg Albuterol/Ipratropium (Duoneb 3 Mg/0.5 Mg (3 Ml) Ud) 3 ml INH RQID [facility] Last Admin: 08/29/17 07:23 Dose: 3 ml Amlodipine Besylate (Norvasc) 10 mg PO DAILY [facility] Last Admin: 08/29/17 08:17 Dose: 10 mg Aspirin (Aspirin Chewable) 81 mg PO DAILY [facility] Last Admin: 08/29/17 08:14 Dose: 81 mg Atorvastatin Calcium (Lipitor) 40 mg PO HS [facility] Last Admin: 08/28/17 21:14 Dose: 40 mg Carvedilol (Coreg) 25 mg PO Q12 [facility] Last Admin: 08/29/17 08:15 Dose: 25 mg Cholecalciferol (Vitamin D) 2,000 intlu PO DAILY [facility] Last Admin: 08/29/17 08:18 Dose: 2,000 intlu Clopidogrel Bisulfate (Plavix) 75 mg PO DAILY [facility] Last Admin: 08/29/17 08:18 Dose: 75 mg Dextrose (Dextrose 50% Inj) 0 ml IV STAT PRN; Protocol PRN Reason: Hypoglycemia Protocol Dextrose (Glutose 15) 0 gm PO ONCE PRN; Protocol PRN Reason: Hypoglycemia Protocol Famotidine (Pepcid) 20 mg PO DAILY [facility] Last Admin: 08/29/17 08:18 Dose: 20 mg Ferrous Sulfate (Feosol) 325 mg PO TID [facility] Last Admin: 08/29/17 08:16 Dose: 325 mg Finasteride (Proscar) 5 mg PO DAILY [facility] Last Admin: 08/29/17 08:18 Dose: 5 mg Furosemide (Lasix) 40 mg PO DAILY [facility] Last Admin: 08/29/17 08:17 Dose: 40 mg Glucagon (Glucagen Diagnostic Kit) 0 mg IM STAT PRN; Protocol PRN Reason: Hypoglycemia Protocol Heparin Sodium (Porcine) (Heparin) 5,000 units SC Q8 [facility] PRN Reason: Protocol Last Admin: 08/29/17 05:48 Dose: 5,000 units Ciprofloxacin (Cipro 400mg/200ml Dsw) 400 mg in 200 mls @ 200 mls/hr IVPB Q12@ 0700,1900 [facility] PRN Reason: Protocol Last Admin: 08/29/17 06:00 Dose: 200 mls/hr Insulin Human Lispro (Humalog) 0 units SC ACHS [facility] PRN Reason: Protocol Last Admin: 08/29/17 06:34 Dose: Not Given Insulin Lispro Protam/Lispro Human (Humalog Mix 75/25) 16 units SC BID [facility] Last Admin: 08/29/17 08:16 Dose: 16 units Lactobacillus Acidophilus (Bacid Acidophilus) 1 cap PO BID [facility] Last Admin: 08/29/17 08:20 Dose: 1 cap Lactulose (Enulose) 10 gm PO DAILY [facility] Last Admin: 08/29/17 08:16 Dose: 10 gm Latanoprost (Xalatan Opht) 1 drop OU HS [facility] Last Admin: 08/28/17 21:15 Dose: 1 drop Lisinopril (Zestril) 20 mg PO DAILY [facility] Last Admin: 08/29/17 08:19 Dose: 20 mg Multivitamins/Minerals (Therapeutic-M Tab) 1 tab PO DAILY [facility] Last Admin: 08/29/17 08:18 Dose: 1 tab Ondansetron HCl (Zofran Inj) 4 mg IVP Q6 PRN PRN Reason: Nausea/Vomiting Last Admin: 08/22/17 05:54 Dose: 4 mg Fluticasone/Salmeterol (Advair Diskus 250/50) 1 puff IH Q12 [facility] Last Admin: 08/29/17 08:14 Dose: 1 puff Sennosides (Senokot Tab) 17.2 mg PO [facility] Last Admin: 08/28/17 21:14 Dose: 17.2 mg Tamsulosin HCl (Flomax) 0.8 mg PO [facility] Last Admin: 08/28/17 21:13 Dose: 0.8 mg - Labs Labs: 08/29/17 05:20 08/29/17 05:20 - Constitutional Appears: No Acute Distress - Head Exam Head Exam: NORMAL INSPECTION - Eye Exam Pupil Exam: PERRL - Neurological Exam Neurological Exam: Alert, Awake Neuro motor strength exam: Left Upper Extremity: 5, Right Upper Extremity: 2/1, Left Lower Extremity: 5, Right Lower Extremity: 2/1 Additional comments: neurological improving from previous examination, follows simple commands Assessment and Plan (1) Ischemic stroke Assessment & Plan: Case discussed with Dr. Thomas, continue all current medical, physical, and occupational therapies. Recommend Blood pressure and glycemic control, hydration , Keep head of bed elevated at least 30 degrees angle when in bed. Status: Acute
--- NOTE | 2017-08-29 13:12 | CP.PCM.PN ---
Subjective - Date & Time of Evaluation Date of Evaluation: 08/29/17 Time of Evaluation: 13:11 - Subjective Subjective: EMG/NCS Above study was normal and did not reveal evidence of a peripheral neuropathy or radiculopathy Objective - Vital Signs/Intake and Output Vital Signs (last 24 hours): Temp Pulse Resp BP Pulse Ox 97.9 F 76 19 140/58 L 97 08/29/17 07:55 08/29/17 08:19 08/29/17 07:55 08/29/17 08:19 08/29/17 07:55 Intake and Output: 08/29/17 08/29/17 06:59 18:59 Intake Total 550 Output Total 1400 Balance -850 - Medications Medications: Current Medications Albuterol Sulfate (Albuterol 0.083% Inhal Bere (2.5 Mg/3 Ml) Ud) 2.5 mg IH Q6 PRN PRN Reason: Shortness of Breath Last Admin: 08/23/17 03:38 Dose: 2.5 mg Albuterol/Ipratropium (Duoneb 3 Mg/0.5 Mg (3 Ml) Ud) 3 ml INH RQID [facility] Last Admin: 08/29/17 11:33 Dose: 3 ml Amlodipine Besylate (Norvasc) 10 mg PO DAILY [facility] Last Admin: 08/29/17 08:17 Dose: 10 mg Aspirin (Aspirin Chewable) 81 mg PO DAILY [facility] Last Admin: 08/29/17 08:14 Dose: 81 mg Atorvastatin Calcium (Lipitor) 40 mg PO HS [facility] Last Admin: 08/28/17 21:14 Dose: 40 mg Carvedilol (Coreg) 25 mg PO Q12 [facility] Last Admin: 08/29/17 08:15 Dose: 25 mg Cholecalciferol (Vitamin D) 2,000 intlu PO DAILY [facility] Last Admin: 08/29/17 08:18 Dose: 2,000 intlu Clopidogrel Bisulfate (Plavix) 75 mg PO DAILY [facility] Last Admin: 08/29/17 08:18 Dose: 75 mg Dextrose (Dextrose 50% Inj) 0 ml IV STAT PRN; Protocol PRN Reason: Hypoglycemia Protocol Dextrose (Glutose 15) 0 gm PO ONCE PRN; Protocol PRN Reason: Hypoglycemia Protocol Famotidine (Pepcid) 20 mg PO DAILY [facility] Last Admin: 08/29/17 08:18 Dose: 20 mg Ferrous Sulfate (Feosol) 325 mg PO TID [facility] Last Admin: 08/29/17 08:16 Dose: 325 mg Finasteride (Proscar) 5 mg PO DAILY [facility] Last Admin: 08/29/17 08:18 Dose: 5 mg Furosemide (Lasix) 40 mg PO DAILY [facility] Last Admin: 08/29/17 08:17 Dose: 40 mg Glucagon (Glucagen Diagnostic Kit) 0 mg IM STAT PRN; Protocol PRN Reason: Hypoglycemia Protocol Heparin Sodium (Porcine) (Heparin) 5,000 units SC Q8 [facility] PRN Reason: Protocol Last Admin: 08/29/17 05:48 Dose: 5,000 units Ciprofloxacin (Cipro 400mg/200ml Dsw) 400 mg in 200 mls @ 200 mls/hr IVPB Q12@ 0700,1900 [facility] PRN Reason: Protocol Last Admin: 08/29/17 06:00 Dose: 200 mls/hr Insulin Human Lispro (Humalog) 0 units SC ACHS [facility] PRN Reason: Protocol Last Admin: 08/29/17 11:59 Dose: Not Given Insulin Lispro Protam/Lispro Human (Humalog Mix 75/25) 16 units SC BID [facility] Last Admin: 08/29/17 08:16 Dose: 16 units Lactobacillus Acidophilus (Bacid Acidophilus) 1 cap PO BID [facility] Last Admin: 08/29/17 08:20 Dose: 1 cap Lactulose (Enulose) 10 gm PO DAILY [facility] Last Admin: 08/29/17 08:16 Dose: 10 gm Latanoprost (Xalatan Opht) 1 drop OU HS [facility] Last Admin: 08/28/17 21:15 Dose: 1 drop Lisinopril (Zestril) 20 mg PO DAILY [facility] Last Admin: 08/29/17 08:19 Dose: 20 mg Multivitamins/Minerals (Therapeutic-M Tab) 1 tab PO DAILY [facility] Last Admin: 08/29/17 08:18 Dose: 1 tab Ondansetron HCl (Zofran Inj) 4 mg IVP Q6 PRN PRN Reason: Nausea/Vomiting Last Admin: 08/22/17 05:54 Dose: 4 mg Fluticasone/Salmeterol (Advair Diskus 250/50) 1 puff IH Q12 [facility] Last Admin: 08/29/17 08:14 Dose: 1 puff Sennosides (Senokot Tab) 17.2 mg PO [facility] Last Admin: 08/28/17 21:14 Dose: 17.2 mg Tamsulosin HCl (Flomax) 0.8 mg PO [facility] Last Admin: 08/28/17 21:13 Dose: 0.8 mg - Labs Labs: 08/29/17 05:20 08/29/17 05:20
[2017-08-29] MEDS ORDERED: Insulin Lispro Mix 75/25 100 units/ml (HumaLog) 10ml SC SCH (15:52)
[2017-08-29] MEDS: Latanoprost 0.005% Opht SOUTION OU SCH (21:15)
[2017-08-30] MEDS: Ciprofloxacin 400mg/200ml D5W 400 MG/200 ML BAG IVPB SCH ×2 (06:11→18:31)
[2017-08-30] MEDS: Albuterol-Ipratrop 3 mg / 0.5 (3 ml) UD INH SCH ×4 (07:18→20:13)
[2017-08-30] MEDS: Insulin Lispro (humaLOG) 100 Units/ml Inj SC SCH ×2 (07:34→12:15)
--- NOTE | 2017-08-30 07:45 | CP.PCM.PN ---
<Minda Dorsey - Last Filed: 08/30/17 07:43> Subjective - Date & Time of Evaluation Date of Evaluation: 08/30/17 Time of Evaluation: 07:43 - Subjective Subjective: Gastroenterology Fellow/PGY5 Progress Note Patient resting comfortably. Easily arousable. Nursing confirms tolerating diet. No bowel movement for a few days despite lactulose and senokot. No acute events overnight. A 12-point review of systems unable to be obtained with acute CVA and expressive aphasia. Objective - Vital Signs/Intake and Output Vital Signs (last 24 hours): Temp Pulse Resp BP Pulse Ox 97.7 F 61 20 135/57 L 100 08/30/17 07:35 08/30/17 07:35 08/30/17 07:35 08/30/17 07:35 08/30/17 07:35 Intake and Output: 08/30/17 08/30/17 06:59 18:59 Intake Total 350 Output Total 1200 Balance -850 - Medications Medications: Current Medications Albuterol Sulfate (Albuterol 0.083% Inhal Bere (2.5 Mg/3 Ml) Ud) 2.5 mg IH Q6 PRN PRN Reason: Shortness of Breath Last Admin: 08/23/17 03:38 Dose: 2.5 mg Albuterol/Ipratropium (Duoneb 3 Mg/0.5 Mg (3 Ml) Ud) 3 ml INH RQID [facility] Last Admin: 08/30/17 07:18 Dose: 3 ml Amlodipine Besylate (Norvasc) 10 mg PO DAILY [facility] Last Admin: 08/29/17 08:17 Dose: 10 mg Aspirin (Aspirin Chewable) 81 mg PO DAILY [facility] Last Admin: 08/29/17 08:14 Dose: 81 mg Atorvastatin Calcium (Lipitor) 40 mg PO HS [facility] Last Admin: 08/29/17 21:13 Dose: 40 mg Carvedilol (Coreg) 25 mg PO Q12 [facility] Last Admin: 08/29/17 21:13 Dose: 25 mg Cholecalciferol (Vitamin D) 2,000 intlu PO DAILY [facility] Last Admin: 08/29/17 08:18 Dose: 2,000 intlu Clopidogrel Bisulfate (Plavix) 75 mg PO DAILY [facility] Last Admin: 08/29/17 08:18 Dose: 75 mg Dextrose (Dextrose 50% Inj) 0 ml IV STAT PRN; Protocol PRN Reason: Hypoglycemia Protocol Dextrose (Glutose 15) 0 gm PO ONCE PRN; Protocol PRN Reason: Hypoglycemia Protocol Famotidine (Pepcid) 20 mg PO DAILY [facility] Last Admin: 08/29/17 08:18 Dose: 20 mg Ferrous Sulfate (Feosol) 325 mg PO TID [facility] Last Admin: 08/29/17 16:51 Dose: 325 mg Finasteride (Proscar) 5 mg PO DAILY [facility] Last Admin: 08/29/17 08:18 Dose: 5 mg Furosemide (Lasix) 40 mg PO DAILY [facility] Last Admin: 08/29/17 08:17 Dose: 40 mg Glucagon (Glucagen Diagnostic Kit) 0 mg IM STAT PRN; Protocol PRN Reason: Hypoglycemia Protocol Heparin Sodium (Porcine) (Heparin) 5,000 units SC Q8 [facility] PRN Reason: Protocol Last Admin: 08/30/17 06:12 Dose: 5,000 units Ciprofloxacin (Cipro 400mg/200ml Dsw) 400 mg in 200 mls @ 200 mls/hr IVPB Q12@ 0700,1900 [facility] PRN Reason: Protocol Last Admin: 08/30/17 06:11 Dose: 200 mls/hr Insulin Human Lispro (Humalog) 0 units SC ACHS [facility] PRN Reason: Protocol Last Admin: 08/30/17 07:34 Dose: Not Given Insulin Lispro Protam/Lispro Human (Humalog Mix 75/25) 10 units SC BID [facility] Lactobacillus Acidophilus (Bacid Acidophilus) 1 cap PO BID [facility] Last Admin: 08/29/17 16:51 Dose: 1 cap Lactulose (Enulose) 10 gm PO DAILY [facility] Last Admin: 08/29/17 08:16 Dose: 10 gm Latanoprost (Xalatan Opht) 1 drop OU HS [facility] Last Admin: 08/29/17 21:15 Dose: 1 drop Lisinopril (Zestril) 20 mg PO DAILY [facility] Last Admin: 08/29/17 08:19 Dose: 20 mg Multivitamins/Minerals (Therapeutic-M Tab) 1 tab PO DAILY [facility] Last Admin: 08/29/17 08:18 Dose: 1 tab Ondansetron HCl (Zofran Inj) 4 mg IVP Q6 PRN PRN Reason: Nausea/Vomiting Last Admin: 08/22/17 05:54 Dose: 4 mg Psyllium Hydrophilic Mucilloid (Hydrocil Instant) 1 pkt PO DAILY [facility] Fluticasone/Salmeterol (Advair Diskus 250/50) 1 puff IH Q12 [facility] Last Admin: 08/29/17 21:13 Dose: 1 puff Sennosides (Senokot Tab) 17.2 mg PO [facility] Last Admin: 08/29/17 21:15 Dose: 17.2 mg Tamsulosin HCl (Flomax) 0.8 mg PO [facility] Last Admin: 08/29/17 21:13 Dose: 0.8 mg - Labs Labs: 08/29/17 05:20 08/29/17 05:20 - Constitutional Appears: Non-toxic, No Acute Distress - Head Exam Head Exam: ATRAUMATIC, NORMOCEPHALIC - Eye Exam Eye Exam: EOMI, PERRL. absent: Scleral icterus Pupil Exam: PERRL. absent: Miosis, Mydriatic - ENT Exam ENT Exam: Mucous Membranes Moist, Normal Oropharynx - Neck Exam Neck Exam: Full ROM, Normal Inspection - Respiratory Exam Respiratory Exam: Clear to Ausculation Bilateral. absent: Rales, Rhonchi, Wheezes - Cardiovascular Exam Cardiovascular Exam: RRR, +S1, +S2. absent: Gallop, Rubs - GI/Abdominal Exam GI & Abdominal Exam: Soft, Normal Bowel Sounds. absent: Distended, Firm, Guarding, Tenderness, Organomegaly, Rebound - Extremities Exam Extremities Exam: Normal Inspection. absent: Tenderness - Neurological Exam Neurological Exam: Alert, Awake - Psychiatric Exam Psychiatric exam: Normal Affect, Normal Mood - Skin Skin Exam: Dry, Intact, Normal Color, Warm Assessment and Plan - Assessment and Plan (Free Text) Assessment: 82 year old male with PMH of CVA/TIA, CAD s/p 4 stents, Colon cancer s/p resection 1960s, dCHF EF 55-60% (08/2017), HTN, HLD, T2DM, and CKD Stage 3 presenting with right sided weakness. GI consultation for anemia and FOBT positive. Active treatment of left frontotemporal/occipital CVA complicated by right-sided weakness and improving expressive aphasia and constipation. Plan: -H/H stable -continue Pepcid -FOBT positive likely 2/2 to external hemorrhoid -Metamucil ordered to start today -ordered Dulcolax suppository once -outpatient elective follow up for endoscopic exams after medically optimized and benefit outweighs risk of holding Plavix for possible diagnostic and/or treatment approaches during procedure <Crispin Gonzalez - Last Filed: 09/12/17 09:29> Objective - Vital Signs/Intake and Output Vital Signs (last 24 hours): Temp Pulse Resp BP Pulse Ox 97.1 F L 65 19 126/70 98 09/12/17 09:01 09/12/17 09:01 09/12/17 09:01 09/12/17 09:01 09/12/17 09:01 Intake and Output: 09/12/17 09/12/17 06:59 18:59 Intake Total 200 Output Total 1400 Balance -1200 - Medications Medications: Current Medications Acetaminophen (Tylenol 325mg Tab) 650 mg PO Q6 PRN PRN Reason: PAIN SCALE 1-10. Last Admin: 09/09/17 00:30 Dose: 650 mg Albuterol Sulfate (Albuterol 0.083% Inhal Bere (2.5 Mg/3 Ml) Ud) 2.5 mg IH Q6 PRN PRN Reason: Shortness of Breath Last Admin: 08/23/17 03:38 Dose: 2.5 mg Albuterol/Ipratropium (Duoneb 3 Mg/0.5 Mg (3 Ml) Ud) 3 ml INH RQID [facility] Last Admin: 09/12/17 08:06 Dose: 3 ml Amlodipine Besylate (Norvasc) 10 mg PO DAILY [facility] Last Admin: 09/12/17 08:29 Dose: 10 mg Aspirin (Aspirin Chewable) 81 mg PO DAILY [facility] Last Admin: 09/12/17 08:28 Dose: 81 mg Atorvastatin Calcium (Lipitor) 40 mg PO HS [facility] Last Admin: 09/11/17 21:54 Dose: 40 mg Carvedilol (Coreg) 25 mg PO Q12 [facility] Last Admin: 09/12/17 08:32 Dose: 25 mg Cholecalciferol (Vitamin D) 2,000 intlu PO DAILY [facility] Last Admin: 09/12/17 08:31 Dose: 2,000 intlu Clopidogrel Bisulfate (Plavix) 75 mg PO DAILY [facility] Last Admin: 09/12/17 08:26 Dose: 75 mg Clotrimazole (Lotrimin 1% Cream) 1 applic TOP BID [facility] Last Admin: 09/12/17 08:25 Dose: 1 applic Dextrose (Dextrose 50% Inj) 0 ml IV STAT PRN; Protocol PRN Reason: Hypoglycemia Protocol Dextrose (Glutose 15) 0 gm PO ONCE PRN; Protocol PRN Reason: Hypoglycemia Protocol Dextrose (Dextrose 50% Inj) 0 ml IV STAT PRN; Protocol PRN Reason: Hypoglycemia Protocol Dextrose (Glutose 15) 0 gm PO ONCE PRN; Protocol PRN Reason: Hypoglycemia Protocol Famotidine (Pepcid) 20 mg PO DAILY [facility] Last Admin: 09/12/17 08:29 Dose: 20 mg Ferrous Sulfate (Feosol) 325 mg PO TID [facility] Last Admin: 09/12/17 08:27 Dose: 325 mg Finasteride (Proscar) 5 mg PO DAILY [facility] Last Admin: 09/12/17 08:29 Dose: 5 mg Furosemide (Lasix) 40 mg PO DAILY [facility] Last Admin: 09/12/17 08:28 Dose: 40 mg Glucagon (Glucagen Diagnostic Kit) 0 mg IM STAT PRN; Protocol PRN Reason: Hypoglycemia Protocol Glucagon (Glucagen Diagnostic Kit) 0 mg IM STAT PRN; Protocol PRN Reason: Hypoglycemia Protocol Heparin Sodium (Porcine) (Heparin) 5,000 units SC Q8 [facility] PRN Reason: Protocol Last Admin: 09/12/17 06:20 Dose: 5,000 units Insulin Lispro Protam/Lispro Human (Humalog Mix 75/25) 12 units SC BID [facility] Last Admin: 09/12/17 08:26 Dose: 12 units Lactulose (Enulose) 10 gm PO DAILY [facility] Last Admin: 09/12/17 08:27 Dose: 10 gm Latanoprost (Xalatan Opht) 1 drop OU HS [facility] Last Admin: 09/11/17 21:55 Dose: 1 drop Lidocaine HCl (Xylocaine 2%) 1 applic TOP ONCE PRN PRN Reason: Pain, moderate (4-7) Last Admin: 09/09/17 08:50 Dose: 1 applic Lisinopril (Zestril) 20 mg PO DAILY [facility] Last Admin: 09/12/17 08:27 Dose: 20 mg Multi-Ingredient Ointment (Hydrophor Oint) 1 applic TOP TID [facility] Last Admin: 09/12/17 08:25 Dose: 1 applic Multivitamins/Minerals (Therapeutic-M Tab) 1 tab PO DAILY [facility] Last Admin: 09/12/17 08:29 Dose: 1 tab Mupirocin (Bactroban Ointment) 1 applic TOP BID [facility] Last Admin: 09/12/17 08:28 Dose: 1 applic Ondansetron HCl (Zofran Inj) 4 mg IVP Q6 PRN PRN Reason: Nausea/Vomiting Last Admin: 08/22/17 05:54 Dose: 4 mg Psyllium Hydrophilic Mucilloid (Hydrocil Instant) 1 pkt PO DAILY [facility] Last Admin: 09/12/17 08:27 Dose: 1 pkt Fluticasone/Salmeterol (Advair Diskus 250/50) 1 puff IH Q12 [facility] Last Admin: 09/12/17 08:25 Dose: 1 puff Sennosides (Senokot Tab) 17.2 mg PO [facility] Last Admin: 09/11/17 21:55 Dose: 17.2 mg Tamsulosin HCl (Flomax) 0.8 mg PO HS [facility] Last Admin: 09/11/17 21:54 Dose: 0.8 mg - Labs Labs: 09/06/17 05:15 09/12/17 05:15 PT 12.6 Seconds (9.8-13.1) 09/06/17 05:15 INR 1.1 (0.9-1.2) 09/06/17 05:15 Assessment and Plan - Assessment and Plan (Free Text) Plan: patient seen and examined discussed with fellow agree with above Crispin Gonzalez MD, phD
[2017-08-30] MEDS: Psyllium Packet PO SCH (08:23)
[2017-08-30] MEDS: Cholecalciferol 1,000 INTLU TAB PO SCH (08:24)
[2017-08-30] MEDS: Multivitamin With Minerals Tab PO SCH (08:24)
[2017-08-30] MEDS: Fluticasone-Salmeterol 250-50mcg Diskus IH SCH ×2 (08:25→23:46)
[2017-08-30] MEDS: Lactulose 10 gm/15 ml Syrup PO SCH (08:25)
[2017-08-30] MEDS: Lactobacillus Acidophilus 500 MU Cap PO SCH ×2 (08:27→16:23)
[2017-08-30] MEDS: Insulin Lispro Mix 75/25 100 units/ml (HumaLog) 10ml SC SCH ×2 (09:00→16:26)
--- NOTE | 2017-08-30 09:10 | CP.PCM.PN ---
<Miroslava Gonzalez - Last Filed: 08/30/17 14:03> Subjective - Date & Time of Evaluation Date of Evaluation: 08/30/17 Time of Evaluation: 09:08 - Subjective Subjective: No acute overnight events. This AM pt was found asleep, examined pt with nurse. Denies chest pain, headache, n/v/d. Per nurse last BM was 3 days ago, bowel regimen started per GI. Objective - Vital Signs/Intake and Output Vital Signs (last 24 hours): Temp Pulse Resp BP Pulse Ox 97.7 F 66 20 138/60 100 08/30/17 07:35 08/30/17 08:23 08/30/17 07:35 08/30/17 08:23 08/30/17 07:35 Intake and Output: 08/30/17 08/30/17 06:59 18:59 Intake Total 350 Output Total 1200 Balance -850 - Medications Medications: Current Medications Albuterol Sulfate (Albuterol 0.083% Inhal Bere (2.5 Mg/3 Ml) Ud) 2.5 mg IH Q6 PRN PRN Reason: Shortness of Breath Last Admin: 08/23/17 03:38 Dose: 2.5 mg Albuterol/Ipratropium (Duoneb 3 Mg/0.5 Mg (3 Ml) Ud) 3 ml INH RQID [facility] Last Admin: 08/30/17 07:18 Dose: 3 ml Amlodipine Besylate (Norvasc) 10 mg PO DAILY [facility] Last Admin: 08/29/17 08:17 Dose: 10 mg Aspirin (Aspirin Chewable) 81 mg PO DAILY [facility] Last Admin: 08/30/17 08:23 Dose: 81 mg Atorvastatin Calcium (Lipitor) 40 mg PO HS [facility] Last Admin: 08/29/17 21:13 Dose: 40 mg Carvedilol (Coreg) 25 mg PO Q12 [facility] Last Admin: 08/29/17 21:13 Dose: 25 mg Cholecalciferol (Vitamin D) 2,000 intlu PO DAILY [facility] Last Admin: 08/30/17 08:24 Dose: 2,000 intlu Clopidogrel Bisulfate (Plavix) 75 mg PO DAILY [facility] Last Admin: 08/30/17 08:24 Dose: 75 mg Dextrose (Dextrose 50% Inj) 0 ml IV STAT PRN; Protocol PRN Reason: Hypoglycemia Protocol Dextrose (Glutose 15) 0 gm PO ONCE PRN; Protocol PRN Reason: Hypoglycemia Protocol Famotidine (Pepcid) 20 mg PO DAILY [facility] Last Admin: 08/30/17 08:24 Dose: 20 mg Ferrous Sulfate (Feosol) 325 mg PO TID [facility] Last Admin: 08/29/17 16:51 Dose: 325 mg Finasteride (Proscar) 5 mg PO DAILY [facility] Last Admin: 08/30/17 08:24 Dose: 5 mg Furosemide (Lasix) 40 mg PO DAILY [facility] Last Admin: 08/29/17 08:17 Dose: 40 mg Glucagon (Glucagen Diagnostic Kit) 0 mg IM STAT PRN; Protocol PRN Reason: Hypoglycemia Protocol Heparin Sodium (Porcine) (Heparin) 5,000 units SC Q8 [facility] PRN Reason: Protocol Last Admin: 08/30/17 06:12 Dose: 5,000 units Ciprofloxacin (Cipro 400mg/200ml Dsw) 400 mg in 200 mls @ 200 mls/hr IVPB Q12@ 0700,1900 [facility] PRN Reason: Protocol Last Admin: 08/30/17 06:11 Dose: 200 mls/hr Insulin Human Lispro (Humalog) 0 units SC ACHS [facility] PRN Reason: Protocol Last Admin: 08/30/17 07:34 Dose: Not Given Insulin Lispro Protam/Lispro Human (Humalog Mix 75/25) 10 units SC BID [facility] Lactobacillus Acidophilus (Bacid Acidophilus) 1 cap PO BID [facility] Last Admin: 08/30/17 08:27 Dose: 1 cap Lactulose (Enulose) 10 gm PO DAILY [facility] Last Admin: 08/30/17 08:25 Dose: 10 gm Latanoprost (Xalatan Opht) 1 drop OU HS [facility] Last Admin: 08/29/17 21:15 Dose: 1 drop Lisinopril (Zestril) 20 mg PO DAILY [facility] Last Admin: 08/30/17 08:23 Dose: 20 mg Multi-Ingredient Ointment (Hydrophor Oint) 1 applic TOP TID [facility] Multivitamins/Minerals (Therapeutic-M Tab) 1 tab PO DAILY [facility] Last Admin: 08/30/17 08:24 Dose: 1 tab Ondansetron HCl (Zofran Inj) 4 mg IVP Q6 PRN PRN Reason: Nausea/Vomiting Last Admin: 08/22/17 05:54 Dose: 4 mg Psyllium Hydrophilic Mucilloid (Hydrocil Instant) 1 pkt PO DAILY [facility] Last Admin: 08/30/17 08:23 Dose: 1 pkt Fluticasone/Salmeterol (Advair Diskus 250/50) 1 puff IH Q12 [facility] Last Admin: 08/30/17 08:25 Dose: 1 puff Sennosides (Senokot Tab) 17.2 mg PO [facility] Last Admin: 08/29/17 21:15 Dose: 17.2 mg Tamsulosin HCl (Flomax) 0.8 mg PO [facility] Last Admin: 08/29/17 21:13 Dose: 0.8 mg - Labs Labs: 08/29/17 05:20 08/29/17 05:20 - Constitutional Appears: No Acute Distress, Other (well kept, r sided facial droop, aphasia- improving ) - Head Exam Head Exam: NORMAL INSPECTION - Eye Exam Eye Exam: EOMI - ENT Exam ENT Exam: Mucous Membranes Moist - Respiratory Exam Respiratory Exam: Wheezes (mild faint wheezing in the lower lobes ), NORMAL BREATHING PATTERN - Cardiovascular Exam Cardiovascular Exam: REGULAR RHYTHM, +S1, +S2 - GI/Abdominal Exam GI & Abdominal Exam: Soft, Normal Bowel Sounds. absent: Tenderness - Exam Exam: absent: Scrotal Swelling (hollis cath in place, draining clear yellow urine ) - Extremities Exam Extremities Exam: Normal Inspection. absent: Calf Tenderness, Pedal Edema Additional comments: Weakness improving in the R upper and lower extremity moving LLE and LUE small scabs in L thigh, around hollis preciado - Back Exam Back Exam: NORMAL INSPECTION - Neurological Exam Neurological Exam: Alert, Awake - Psychiatric Exam Psychiatric exam: Normal Affect, Normal Mood Assessment and Plan - Assessment and Plan (Free Text) Assessment: Assessment/Plan: 82 YO male with PMHz of Diastolic HF, COPD, CAD s/p stent x 4, CKD, DM2 on insulin, HTN, HLD, Colon CA s/p surgery (1961), TIA/CVA (1988), left eye blindness/diabetic retinopathy, stroke x 2 (L temporal/occipital and L frontal lobe) is admitted to rehab for further therapy. Acute Stroke, L temporal/occipital junction (08/12) and acute infract L frontal lobe (08/13) -Neuro on board; cont meds; If the patient further declines with mental status, to repeat CT scan of the head without contrast. -c/w Aspirin and Plavix -c/w modified dysphagia diet -acute rehab, stable UTI -UA 08/20 back; sig for trace leukes and WBC -culture pos while on tele; likely hospital acquired -UA with abx culture neg -c/w cipro 400 Q12 x 14 days (08/21/17-09/03/17) D10/14 Urinary retention -stable -likely 2/2 acute stroke, with baseline BPH -c/w flomax 0.8mg, Finestride -cont hollis -urology consulted; will keep hollis in place until 09/04/17 and do a trial of voiding. If retention persists re-consult urology. DM2 on insulin -Insulin regimen changes, Novalin 70/30 decreased to 10U BID -cont to monitor HTN -controlled -C/w Lisinopril 10daily, 10mg Norvasc, Carvidilol 25mg BID Normocytic Anemia -stable -iron studies appreciated, low iron with normal ferritin -c/w Iron PO -FOBT pos, ext hemorrhoids -GI consulted; no acute intervention, Bowel regimen -c/w Famotidine Small ulcerations, abrasions -likely 2/2 to hollis strap -mupirocin and aquaphor -cont to monitor Constipation -GI on board, bowel regimen Low vitamin D -Vit D level <12.8 -c/w 2000mg vit D daily CAD s/p stent x 4 -EKG: Sinus bradycardia with occasional premature ventricular complexes, Left ventricular hypertrophy with repolarization abnormality -echo normal LV, EF 55-60% -c/w Coreg, Statin, ASA and plavix History of Diastolic HF -Last ECHO from 11/2013 --> Normal LV syst function; Concentric LVH; Impaired Diastolic function -echo normal LV, EF 55-60% -Continue Lipitor 40 mg, ASA 81mg -Out patient Cardiology: Dr. Carlos Prophylaxis -DVT ppx c/w heparin -c/w probiotic <Maria Fernanda Whitaker - Last Filed: 08/30/17 14:57> Objective - Vital Signs/Intake and Output Vital Signs (last 24 hours): Temp Pulse Resp BP Pulse Ox 97.7 F 80 20 120/80 97 08/30/17 07:35 08/30/17 10:00 08/30/17 07:35 08/30/17 10:00 08/30/17 09:34 Intake and Output: 08/30/17 08/30/17 06:59 18:59 Intake Total 350 Output Total 1200 Balance -850 - Medications Medications: Current Medications Albuterol Sulfate (Albuterol 0.083% Inhal Bere (2.5 Mg/3 Ml) Ud) 2.5 mg IH Q6 PRN PRN Reason: Shortness of Breath Last Admin: 08/23/17 03:38 Dose: 2.5 mg Albuterol/Ipratropium (Duoneb 3 Mg/0.5 Mg (3 Ml) Ud) 3 ml INH RQID [facility] Last Admin: 08/30/17 11:42 Dose: 3 ml Amlodipine Besylate (Norvasc) 10 mg PO DAILY [facility] Last Admin: 08/30/17 09:00 Dose: 10 mg Aspirin (Aspirin Chewable) 81 mg PO DAILY [facility] Last Admin: 08/30/17 08:23 Dose: 81 mg Atorvastatin Calcium (Lipitor) 40 mg PO HS [facility] Last Admin: 08/29/17 21:13 Dose: 40 mg Carvedilol (Coreg) 25 mg PO Q12 [facility] Last Admin: 08/30/17 10:00 Dose: 25 mg Cholecalciferol (Vitamin D) 2,000 intlu PO DAILY [facility] Last Admin: 08/30/17 08:24 Dose: 2,000 intlu Clopidogrel Bisulfate (Plavix) 75 mg PO DAILY [facility] Last Admin: 08/30/17 08:24 Dose: 75 mg Dextrose (Dextrose 50% Inj) 0 ml IV STAT PRN; Protocol PRN Reason: Hypoglycemia Protocol Dextrose (Glutose 15) 0 gm PO ONCE PRN; Protocol PRN Reason: Hypoglycemia Protocol Famotidine (Pepcid) 20 mg PO DAILY [facility] Last Admin: 08/30/17 08:24 Dose: 20 mg Ferrous Sulfate (Feosol) 325 mg PO TID [facility] Last Admin: 08/30/17 09:00 Dose: 325 mg Finasteride (Proscar) 5 mg PO DAILY [facility] Last Admin: 08/30/17 08:24 Dose: 5 mg Furosemide (Lasix) 40 mg PO DAILY [facility] Last Admin: 08/30/17 10:00 Dose: 40 mg Glucagon (Glucagen Diagnostic Kit) 0 mg IM STAT PRN; Protocol PRN Reason: Hypoglycemia Protocol Heparin Sodium (Porcine) (Heparin) 5,000 units SC Q8 [facility] PRN Reason: Protocol Last Admin: 08/30/17 06:12 Dose: 5,000 units Ciprofloxacin (Cipro 400mg/200ml Dsw) 400 mg in 200 mls @ 200 mls/hr IVPB Q12@ 0700,1900 [facility] PRN Reason: Protocol Last Admin: 08/30/17 06:11 Dose: 200 mls/hr Insulin Lispro Protam/Lispro Human (Humalog Mix 75/25) 10 units SC BID [facility] Last Admin: 08/30/17 09:00 Dose: 10 units Lactobacillus Acidophilus (Bacid Acidophilus) 1 cap PO BID [facility] Last Admin: 08/30/17 08:27 Dose: 1 cap Lactulose (Enulose) 10 gm PO DAILY [facility] Last Admin: 08/30/17 08:25 Dose: 10 gm Lactulose (Enulose) 20 gm PO BID PRN PRN Reason: Constipation Last Admin: 08/30/17 12:41 Dose: 20 gm Latanoprost (Xalatan Opht) 1 drop OU HS [facility] Last Admin: 08/29/17 21:15 Dose: 1 drop Lisinopril (Zestril) 20 mg PO DAILY [facility] Last Admin: 08/30/17 08:23 Dose: 20 mg Multi-Ingredient Ointment (Hydrophor Oint) 1 applic TOP TID [facility] Last Admin: 08/30/17 10:00 Dose: 1 applic Multivitamins/Minerals (Therapeutic-M Tab) 1 tab PO DAILY [facility] Last Admin: 08/30/17 08:24 Dose: 1 tab Mupirocin (Bactroban Ointment) 1 applic TOP BID [facility] Ondansetron HCl (Zofran Inj) 4 mg IVP Q6 PRN PRN Reason: Nausea/Vomiting Last Admin: 08/22/17 05:54 Dose: 4 mg Psyllium Hydrophilic Mucilloid (Hydrocil Instant) 1 pkt PO DAILY [facility] Last Admin: 08/30/17 08:23 Dose: 1 pkt Fluticasone/Salmeterol (Advair Diskus 250/50) 1 puff IH Q12 [facility] Last Admin: 08/30/17 08:25 Dose: 1 puff Sennosides (Senokot Tab) 17.2 mg PO HS [facility] Last Admin: 08/29/17 21:15 Dose: 17.2 mg Tamsulosin HCl (Flomax) 0.8 mg PO HS [facility] Last Admin: 08/29/17 21:13 Dose: 0.8 mg - Labs Labs: 08/29/17 05:20 08/29/17 05:20 Attending/Attestation - Attestation I have personally seen and examined this patient.: Yes I have fully participated in the care of the patient.: Yes I have reviewed all pertinent clinical information, including history, physical exam and plan: Yes
[2017-08-30] MEDS: Hydrophor Oint TOP SCH ×3 (10:00→18:00)
--- NOTE | 2017-08-30 10:11 | CP.PCM.PN ---
Subjective - Date & Time of Evaluation Date of Evaluation: 08/30/17 Time of Evaluation: 10:10 - Subjective Subjective: Mr. Fred Banegas was seen and examined at the therapy room. His speech continuously improving. He is able to verbalize several [place] citizen words and able to state words even in Chinese. He participates in a pleasant conversation. He is able to follow some commands and able to move minimally in his bed. He remains with right facial droop, right side weakness, tolerating therapy sessions. There was no untoward events overnight. Objective - Vital Signs/Intake and Output Vital Signs (last 24 hours): Temp Pulse Resp BP Pulse Ox 97.7 F 68 20 138/60 97 08/30/17 07:35 08/30/17 09:34 08/30/17 07:35 08/30/17 08:23 08/30/17 09:34 Intake and Output: 08/30/17 08/30/17 06:59 18:59 Intake Total 350 Output Total 1200 Balance -850 - Medications Medications: Current Medications Albuterol Sulfate (Albuterol 0.083% Inhal Bere (2.5 Mg/3 Ml) Ud) 2.5 mg IH Q6 PRN PRN Reason: Shortness of Breath Last Admin: 08/23/17 03:38 Dose: 2.5 mg Albuterol/Ipratropium (Duoneb 3 Mg/0.5 Mg (3 Ml) Ud) 3 ml INH RQID [facility] Last Admin: 08/30/17 07:18 Dose: 3 ml Amlodipine Besylate (Norvasc) 10 mg PO DAILY [facility] Last Admin: 08/29/17 08:17 Dose: 10 mg Aspirin (Aspirin Chewable) 81 mg PO DAILY [facility] Last Admin: 08/30/17 08:23 Dose: 81 mg Atorvastatin Calcium (Lipitor) 40 mg PO HS [facility] Last Admin: 08/29/17 21:13 Dose: 40 mg Carvedilol (Coreg) 25 mg PO Q12 [facility] Last Admin: 08/29/17 21:13 Dose: 25 mg Cholecalciferol (Vitamin D) 2,000 intlu PO DAILY [facility] Last Admin: 08/30/17 08:24 Dose: 2,000 intlu Clopidogrel Bisulfate (Plavix) 75 mg PO DAILY [facility] Last Admin: 08/30/17 08:24 Dose: 75 mg Dextrose (Dextrose 50% Inj) 0 ml IV STAT PRN; Protocol PRN Reason: Hypoglycemia Protocol Dextrose (Glutose 15) 0 gm PO ONCE PRN; Protocol PRN Reason: Hypoglycemia Protocol Famotidine (Pepcid) 20 mg PO DAILY [facility] Last Admin: 08/30/17 08:24 Dose: 20 mg Ferrous Sulfate (Feosol) 325 mg PO TID [facility] Last Admin: 08/29/17 16:51 Dose: 325 mg Finasteride (Proscar) 5 mg PO DAILY [facility] Last Admin: 08/30/17 08:24 Dose: 5 mg Furosemide (Lasix) 40 mg PO DAILY [facility] Last Admin: 08/29/17 08:17 Dose: 40 mg Glucagon (Glucagen Diagnostic Kit) 0 mg IM STAT PRN; Protocol PRN Reason: Hypoglycemia Protocol Heparin Sodium (Porcine) (Heparin) 5,000 units SC Q8 [facility] PRN Reason: Protocol Last Admin: 08/30/17 06:12 Dose: 5,000 units Ciprofloxacin (Cipro 400mg/200ml Dsw) 400 mg in 200 mls @ 200 mls/hr IVPB Q12@ 0700,1900 [facility] PRN Reason: Protocol Last Admin: 08/30/17 06:11 Dose: 200 mls/hr Insulin Human Lispro (Humalog) 0 units SC ACHS [facility] PRN Reason: Protocol Last Admin: 08/30/17 07:34 Dose: Not Given Insulin Lispro Protam/Lispro Human (Humalog Mix 75/25) 10 units SC BID [facility] Lactobacillus Acidophilus (Bacid Acidophilus) 1 cap PO BID [facility] Last Admin: 08/30/17 08:27 Dose: 1 cap Lactulose (Enulose) 10 gm PO DAILY [facility] Last Admin: 08/30/17 08:25 Dose: 10 gm Latanoprost (Xalatan Opht) 1 drop OU HS [facility] Last Admin: 08/29/17 21:15 Dose: 1 drop Lisinopril (Zestril) 20 mg PO DAILY [facility] Last Admin: 08/30/17 08:23 Dose: 20 mg Multi-Ingredient Ointment (Hydrophor Oint) 1 applic TOP TID [facility] Multivitamins/Minerals (Therapeutic-M Tab) 1 tab PO DAILY [facility] Last Admin: 08/30/17 08:24 Dose: 1 tab Ondansetron HCl (Zofran Inj) 4 mg IVP Q6 PRN PRN Reason: Nausea/Vomiting Last Admin: 08/22/17 05:54 Dose: 4 mg Psyllium Hydrophilic Mucilloid (Hydrocil Instant) 1 pkt PO DAILY [facility] Last Admin: 08/30/17 08:23 Dose: 1 pkt Fluticasone/Salmeterol (Advair Diskus 250/50) 1 puff IH Q12 [facility] Last Admin: 08/30/17 08:25 Dose: 1 puff Sennosides (Senokot Tab) 17.2 mg PO HS [facility] Last Admin: 08/29/17 21:15 Dose: 17.2 mg Tamsulosin HCl (Flomax) 0.8 mg PO HS [facility] Last Admin: 08/29/17 21:13 Dose: 0.8 mg - Labs Labs: 08/29/17 05:20 08/29/17 05:20 - Constitutional Appears: No Acute Distress - Head Exam Head Exam: NORMAL INSPECTION - Eye Exam Pupil Exam: PERRL - Neurological Exam Neuro motor strength exam: Left Upper Extremity: 5, Right Upper Extremity: 3, Left Lower Extremity: 5, Right Lower Extremity: 3 Additional comments: neuro status unchanged from previous examination. Assessment and Plan (1) Ischemic stroke Assessment & Plan: Case discussed with Dr. Thomas, continue all current medical, physical, and occupational therapies. Recommend Blood pressure and glycemic control, hydration , Keep head of bed elevated at least 30 degrees angle when in bed. Status: Acute
[2017-08-30] MEDS: Latanoprost 0.005% Opht SOUTION OU SCH (22:06)
[2017-08-31] MEDS: Ciprofloxacin 400mg/200ml D5W 400 MG/200 ML BAG IVPB SCH ×2 (06:17→18:33)
[2017-08-31] MEDS: Albuterol-Ipratrop 3 mg / 0.5 (3 ml) UD INH SCH ×4 (07:49→19:19)
[2017-08-31] MEDS: Fluticasone-Salmeterol 250-50mcg Diskus IH SCH ×2 (08:40→21:55)
[2017-08-31] MEDS: Hydrophor Oint TOP SCH ×3 (08:42→16:52)
[2017-08-31] MEDS: Psyllium Packet PO SCH (08:42)
[2017-08-31] MEDS: Multivitamin With Minerals Tab PO SCH (09:01)
[2017-08-31] MEDS: Lactulose 10 gm/15 ml Syrup PO SCH (09:20)
[2017-08-31] MEDS: Lactobacillus Acidophilus 500 MU Cap PO SCH ×2 (09:20→16:52)
[2017-08-31] MEDS: Insulin Lispro Mix 75/25 100 units/ml (HumaLog) 10ml SC SCH ×2 (09:21→16:53)
[2017-08-31] MEDS: Cholecalciferol 1,000 INTLU TAB PO SCH (09:22)
--- NOTE | 2017-08-31 16:45 | CP.PCM.PN ---
Subjective - Date & Time of Evaluation Date of Evaluation: 08/31/17 Time of Evaluation: 16:44 - Subjective Subjective: Patient seen in room with family present denies sob/cp denies MCKEON or Fever continue current care noted improved right UE strength ambulating 22' with WBQC excellent acute rehab candidate Objective - Vital Signs/Intake and Output Vital Signs (last 24 hours): Temp Pulse Resp BP Pulse Ox 96.4 F L 66 20 145/66 98 08/31/17 08:37 08/31/17 09:02 08/31/17 08:37 08/31/17 09:02 08/31/17 08:37 Intake and Output: 08/31/17 08/31/17 06:59 18:59 Intake Total 350 350 Output Total 1550 1200 Balance -1200 -850 - Medications Medications: Current Medications Albuterol Sulfate (Albuterol 0.083% Inhal Bere (2.5 Mg/3 Ml) Ud) 2.5 mg IH Q6 PRN PRN Reason: Shortness of Breath Last Admin: 08/23/17 03:38 Dose: 2.5 mg Albuterol/Ipratropium (Duoneb 3 Mg/0.5 Mg (3 Ml) Ud) 3 ml INH RQID [facility] Last Admin: 08/31/17 15:36 Dose: 3 ml Amlodipine Besylate (Norvasc) 10 mg PO DAILY [facility] Last Admin: 08/31/17 08:43 Dose: 10 mg Aspirin (Aspirin Chewable) 81 mg PO DAILY [facility] Last Admin: 08/31/17 09:18 Dose: 81 mg Atorvastatin Calcium (Lipitor) 40 mg PO HS [facility] Last Admin: 08/30/17 22:04 Dose: 40 mg Carvedilol (Coreg) 25 mg PO Q12 [facility] Last Admin: 08/31/17 08:44 Dose: 25 mg Cholecalciferol (Vitamin D) 2,000 intlu PO DAILY [facility] Last Admin: 08/31/17 09:22 Dose: 2,000 intlu Clopidogrel Bisulfate (Plavix) 75 mg PO DAILY [facility] Last Admin: 08/31/17 08:43 Dose: 75 mg Dextrose (Dextrose 50% Inj) 0 ml IV STAT PRN; Protocol PRN Reason: Hypoglycemia Protocol Dextrose (Glutose 15) 0 gm PO ONCE PRN; Protocol PRN Reason: Hypoglycemia Protocol Famotidine (Pepcid) 20 mg PO DAILY [facility] Last Admin: 08/31/17 08:44 Dose: 20 mg Ferrous Sulfate (Feosol) 325 mg PO TID [facility] Last Admin: 08/31/17 13:20 Dose: 325 mg Finasteride (Proscar) 5 mg PO DAILY [facility] Last Admin: 08/31/17 09:02 Dose: 5 mg Furosemide (Lasix) 40 mg PO DAILY [facility] Last Admin: 08/31/17 08:41 Dose: 40 mg Glucagon (Glucagen Diagnostic Kit) 0 mg IM STAT PRN; Protocol PRN Reason: Hypoglycemia Protocol Heparin Sodium (Porcine) (Heparin) 5,000 units SC Q8 [facility] PRN Reason: Protocol Last Admin: 08/31/17 13:20 Dose: 5,000 units Ciprofloxacin (Cipro 400mg/200ml Dsw) 400 mg in 200 mls @ 200 mls/hr IVPB Q12@ 0700,1900 [facility] PRN Reason: Protocol Last Admin: 08/31/17 06:17 Dose: 200 mls/hr Insulin Lispro Protam/Lispro Human (Humalog Mix 75/25) 12 units SC BID [facility] Lactobacillus Acidophilus (Bacid Acidophilus) 1 cap PO BID [facility] Last Admin: 08/31/17 09:20 Dose: 1 cap Lactulose (Enulose) 10 gm PO DAILY [facility] Last Admin: 08/31/17 09:20 Dose: Not Given Lactulose (Enulose) 20 gm PO BID PRN PRN Reason: Constipation Last Admin: 08/30/17 12:41 Dose: 20 gm Latanoprost (Xalatan Opht) 1 drop OU HS [facility] Last Admin: 08/30/17 22:06 Dose: 1 drop Lisinopril (Zestril) 20 mg PO DAILY [facility] Last Admin: 08/31/17 09:02 Dose: 20 mg Multi-Ingredient Ointment (Hydrophor Oint) 1 applic TOP TID [facility] Last Admin: 08/31/17 13:21 Dose: 1 applic Multivitamins/Minerals (Therapeutic-M Tab) 1 tab PO DAILY [facility] Last Admin: 08/31/17 09:01 Dose: 1 tab Mupirocin (Bactroban Ointment) 1 applic TOP BID [facility] Last Admin: 08/31/17 08:42 Dose: 1 applic Ondansetron HCl (Zofran Inj) 4 mg IVP Q6 PRN PRN Reason: Nausea/Vomiting Last Admin: 08/22/17 05:54 Dose: 4 mg Psyllium Hydrophilic Mucilloid (Hydrocil Instant) 1 pkt PO DAILY [facility] Last Admin: 08/31/17 08:42 Dose: 1 pkt Fluticasone/Salmeterol (Advair Diskus 250/50) 1 puff IH Q12 [facility] Last Admin: 08/31/17 08:40 Dose: 1 puff Sennosides (Senokot Tab) 17.2 mg PO [facility] Last Admin: 08/30/17 22:05 Dose: Not Given Tamsulosin HCl (Flomax) 0.8 mg PO [facility] Last Admin: 08/30/17 22:01 Dose: 0.8 mg - Labs Labs: 08/29/17 05:20 08/29/17 05:20
[2017-08-31] MEDS ORDERED: Dextrose 50% SYRINGE Inj (50 ml) IV PRN (19:43)
[2017-08-31] MEDS ORDERED: Glucagon Recombinant 1 mg Inj IM PRN (19:43)
[2017-08-31] MEDS: Latanoprost 0.005% Opht SOUTION OU SCH (22:06)
[2017-09-01] MEDS: Ciprofloxacin 400mg/200ml D5W 400 MG/200 ML BAG IVPB SCH ×2 (06:24→19:04)
[2017-09-01] MEDS: Albuterol-Ipratrop 3 mg / 0.5 (3 ml) UD INH SCH ×4 (07:15→19:14)
[2017-09-01] MEDS: Fluticasone-Salmeterol 250-50mcg Diskus IH SCH ×2 (08:29→21:09)
[2017-09-01] MEDS: Lactobacillus Acidophilus 500 MU Cap PO SCH ×2 (08:30→16:57)
[2017-09-01] MEDS: Hydrophor Oint TOP SCH ×3 (08:30→17:02)
[2017-09-01] MEDS: Cholecalciferol 1,000 INTLU TAB PO SCH (08:31)
[2017-09-01] MEDS: Multivitamin With Minerals Tab PO SCH (08:32)
[2017-09-01] MEDS: Psyllium Packet PO SCH (08:33)
[2017-09-01] MEDS: Lactulose 10 gm/15 ml Syrup PO SCH (08:34)
[2017-09-01] MEDS: Insulin Lispro Mix 75/25 100 units/ml (HumaLog) 10ml SC SCH ×2 (08:35→16:59)
[2017-09-01] MEDS: Latanoprost 0.005% Opht SOUTION OU SCH (21:16)
[2017-09-02] MEDS: Ciprofloxacin 400mg/200ml D5W 400 MG/200 ML BAG IVPB SCH ×2 (06:23→18:22)
[2017-09-02] MEDS: Albuterol-Ipratrop 3 mg / 0.5 (3 ml) UD INH SCH ×4 (07:14→19:16)
[2017-09-02] MEDS: Fluticasone-Salmeterol 250-50mcg Diskus IH SCH ×2 (09:13→21:44)
[2017-09-02] MEDS: Insulin Lispro Mix 75/25 100 units/ml (HumaLog) 10ml SC SCH ×2 (09:14→16:19)
[2017-09-02] MEDS: Hydrophor Oint TOP SCH ×3 (09:15→16:19)
--- NOTE | 2017-09-02 09:16 | CP.PCM.PN ---
Subjective - Date & Time of Evaluation Date of Evaluation: 09/02/17 Time of Evaluation: 09:14 - Subjective Subjective: Mr. Fred Banegas was seen and examined at the bedside. His speech continuously improving. He is able to verbalize several [place] island[place] words and able to state words even in Lao. He participates in a pleasant conversation. He is able to follow some commands and able to move minimally in his bed. He remains with right facial droop, right side weakness. There was no untoward events overnight. Objective - Vital Signs/Intake and Output Vital Signs (last 24 hours): Temp Pulse Resp BP Pulse Ox 98.4 F 68 18 146/54 L 99 09/02/17 07:43 09/02/17 07:43 09/02/17 07:43 09/02/17 07:43 09/02/17 07:43 Intake and Output: 09/02/17 09/02/17 06:59 18:59 Intake Total 200 Output Total 1600 Balance -1400 - Medications Medications: Current Medications Albuterol Sulfate (Albuterol 0.083% Inhal Bere (2.5 Mg/3 Ml) Ud) 2.5 mg IH Q6 PRN PRN Reason: Shortness of Breath Last Admin: 08/23/17 03:38 Dose: 2.5 mg Albuterol/Ipratropium (Duoneb 3 Mg/0.5 Mg (3 Ml) Ud) 3 ml INH RQID [facility] Last Admin: 09/02/17 07:14 Dose: 3 ml Amlodipine Besylate (Norvasc) 10 mg PO DAILY [facility] Last Admin: 09/01/17 08:31 Dose: 10 mg Aspirin (Aspirin Chewable) 81 mg PO DAILY [facility] Last Admin: 09/01/17 08:32 Dose: 81 mg Atorvastatin Calcium (Lipitor) 40 mg PO HS [facility] Last Admin: 09/01/17 21:15 Dose: 40 mg Carvedilol (Coreg) 25 mg PO Q12 [facility] Last Admin: 09/01/17 21:10 Dose: 25 mg Cholecalciferol (Vitamin D) 2,000 intlu PO DAILY [facility] Last Admin: 09/01/17 08:31 Dose: 2,000 intlu Clopidogrel Bisulfate (Plavix) 75 mg PO DAILY [facility] Last Admin: 09/01/17 08:30 Dose: 75 mg Dextrose (Dextrose 50% Inj) 0 ml IV STAT PRN; Protocol PRN Reason: Hypoglycemia Protocol Dextrose (Glutose 15) 0 gm PO ONCE PRN; Protocol PRN Reason: Hypoglycemia Protocol Dextrose (Dextrose 50% Inj) 0 ml IV STAT PRN; Protocol PRN Reason: Hypoglycemia Protocol Dextrose (Glutose 15) 0 gm PO ONCE PRN; Protocol PRN Reason: Hypoglycemia Protocol Famotidine (Pepcid) 20 mg PO DAILY [facility] Last Admin: 09/01/17 08:34 Dose: 20 mg Ferrous Sulfate (Feosol) 325 mg PO TID [facility] Last Admin: 09/01/17 16:58 Dose: 325 mg Finasteride (Proscar) 5 mg PO DAILY [facility] Last Admin: 09/01/17 08:32 Dose: 5 mg Furosemide (Lasix) 40 mg PO DAILY [facility] Last Admin: 09/01/17 08:33 Dose: 40 mg Glucagon (Glucagen Diagnostic Kit) 0 mg IM STAT PRN; Protocol PRN Reason: Hypoglycemia Protocol Glucagon (Glucagen Diagnostic Kit) 0 mg IM STAT PRN; Protocol PRN Reason: Hypoglycemia Protocol Heparin Sodium (Porcine) (Heparin) 5,000 units SC Q8 [facility] PRN Reason: Protocol Last Admin: 09/02/17 06:22 Dose: 5,000 units Ciprofloxacin (Cipro 400mg/200ml Dsw) 400 mg in 200 mls @ 200 mls/hr IVPB Q12@ 0700,1900 [facility] PRN Reason: Protocol Last Admin: 09/02/17 06:23 Dose: 200 mls/hr Insulin Lispro Protam/Lispro Human (Humalog Mix 75/25) 12 units SC BID [facility] Last Admin: 09/02/17 09:14 Dose: 12 units Lactobacillus Acidophilus (Bacid Acidophilus) 1 cap PO BID [facility] Last Admin: 09/01/17 16:57 Dose: 1 cap Lactulose (Enulose) 10 gm PO DAILY [facility] Last Admin: 09/01/17 08:34 Dose: 10 gm Latanoprost (Xalatan Opht) 1 drop OU HS [facility] Last Admin: 09/01/17 21:16 Dose: 1 drop Lisinopril (Zestril) 20 mg PO DAILY [facility] Last Admin: 09/01/17 08:33 Dose: 20 mg Multi-Ingredient Ointment (Hydrophor Oint) 1 applic TOP TID [facility] Last Admin: 09/01/17 17:02 Dose: 1 applic Multivitamins/Minerals (Therapeutic-M Tab) 1 tab PO DAILY [facility] Last Admin: 09/01/17 08:32 Dose: 1 tab Mupirocin (Bactroban Ointment) 1 applic TOP BID [facility] Last Admin: 09/01/17 17:03 Dose: 1 applic Ondansetron HCl (Zofran Inj) 4 mg IVP Q6 PRN PRN Reason: Nausea/Vomiting Last Admin: 08/22/17 05:54 Dose: 4 mg Psyllium Hydrophilic Mucilloid (Hydrocil Instant) 1 pkt PO DAILY [facility] Last Admin: 09/01/17 08:33 Dose: 1 pkt Fluticasone/Salmeterol (Advair Diskus 250/50) 1 puff IH Q12 [facility] Last Admin: 09/02/17 09:13 Dose: 1 puff Sennosides (Senokot Tab) 17.2 mg PO HS [facility] Last Admin: 09/01/17 21:15 Dose: 17.2 mg Tamsulosin HCl (Flomax) 0.8 mg PO HS [facility] Last Admin: 09/01/17 21:14 Dose: 0.8 mg - Labs Labs: 08/29/17 05:20 08/29/17 05:20 - Constitutional Appears: No Acute Distress - Head Exam Head Exam: NORMAL INSPECTION - Neurological Exam Neurological Exam: Alert, Awake, Oriented x3 Neuro motor strength exam: Left Upper Extremity: 5, Right Upper Extremity: 3, Left Lower Extremity: 5, Right Lower Extremity: 2/1 Additional comments: neurological unchanged from previous examination. Assessment and Plan (1) Ischemic stroke Assessment & Plan: Case discussed with Dr. Thomas, continue all current medical, physical, and occupational therapies. Recommend Blood pressure and glycemic control, hydration , Keep head of bed elevated at least 30 degrees angle when in bed, follow up with a neurologist in 2 weeks after discharge. If the patient would like to follow up with Dr. Thomas/ Roderick at [address] [place] [address] [address] [place] [address], tel. [phone]. Status: Acute
[2017-09-02] MEDS: Psyllium Packet PO SCH (09:17)
[2017-09-02] MEDS: Lactulose 10 gm/15 ml Syrup PO SCH (09:17)
[2017-09-02] MEDS: Multivitamin With Minerals Tab PO SCH (09:17)
[2017-09-02] MEDS: Cholecalciferol 1,000 INTLU TAB PO SCH (09:17)
[2017-09-02] MEDS: Lactobacillus Acidophilus 500 MU Cap PO SCH ×2 (09:18→16:21)
[2017-09-02] MEDS: Lidocaine 2% GEL TOP PRN (16:00)
--- NOTE | 2017-09-02 19:07 | CP.PCM.PN ---
Subjective - Date & Time of Evaluation Date of Evaluation: 09/02/17 Time of Evaluation: 19:06 - Subjective Subjective: Patient seen in the room improved handgrip discussed with daughter and discussed likely need for CHARISSE continue current care Objective - Vital Signs/Intake and Output Vital Signs (last 24 hours): Temp Pulse Resp BP Pulse Ox 98.4 F 64 18 151/58 H 95 09/02/17 07:43 09/02/17 11:47 09/02/17 07:43 09/02/17 11:47 09/02/17 11:47 Intake and Output: 09/02/17 09/03/17 18:59 06:59 Intake Total 1060 Output Total 1010 Balance 50 - Medications Medications: Current Medications Acetaminophen (Tylenol 325mg Tab) 650 mg PO Q6 PRN PRN Reason: Pain, moderate (4-7) Albuterol Sulfate (Albuterol 0.083% Inhal Bere (2.5 Mg/3 Ml) Ud) 2.5 mg IH Q6 PRN PRN Reason: Shortness of Breath Last Admin: 08/23/17 03:38 Dose: 2.5 mg Albuterol/Ipratropium (Duoneb 3 Mg/0.5 Mg (3 Ml) Ud) 3 ml INH RQID [facility] Last Admin: 09/02/17 15:33 Dose: Not Given Amlodipine Besylate (Norvasc) 10 mg PO DAILY [facility] Last Admin: 09/02/17 09:15 Dose: 10 mg Aspirin (Aspirin Chewable) 81 mg PO DAILY [facility] Last Admin: 09/02/17 09:15 Dose: 81 mg Atorvastatin Calcium (Lipitor) 40 mg PO HS [facility] Last Admin: 09/01/17 21:15 Dose: 40 mg Carvedilol (Coreg) 25 mg PO Q12 [facility] Last Admin: 09/02/17 09:14 Dose: 25 mg Cholecalciferol (Vitamin D) 2,000 intlu PO DAILY [facility] Last Admin: 09/02/17 09:17 Dose: 2,000 intlu Clopidogrel Bisulfate (Plavix) 75 mg PO DAILY [facility] Last Admin: 09/02/17 09:18 Dose: 75 mg Dextrose (Dextrose 50% Inj) 0 ml IV STAT PRN; Protocol PRN Reason: Hypoglycemia Protocol Dextrose (Glutose 15) 0 gm PO ONCE PRN; Protocol PRN Reason: Hypoglycemia Protocol Dextrose (Dextrose 50% Inj) 0 ml IV STAT PRN; Protocol PRN Reason: Hypoglycemia Protocol Dextrose (Glutose 15) 0 gm PO ONCE PRN; Protocol PRN Reason: Hypoglycemia Protocol Famotidine (Pepcid) 20 mg PO DAILY [facility] Last Admin: 09/02/17 09:16 Dose: 20 mg Ferrous Sulfate (Feosol) 325 mg PO TID [facility] Last Admin: 09/02/17 16:19 Dose: 325 mg Finasteride (Proscar) 5 mg PO DAILY [facility] Last Admin: 09/02/17 09:14 Dose: 5 mg Furosemide (Lasix) 40 mg PO DAILY [facility] Last Admin: 09/02/17 09:16 Dose: 40 mg Glucagon (Glucagen Diagnostic Kit) 0 mg IM STAT PRN; Protocol PRN Reason: Hypoglycemia Protocol Glucagon (Glucagen Diagnostic Kit) 0 mg IM STAT PRN; Protocol PRN Reason: Hypoglycemia Protocol Heparin Sodium (Porcine) (Heparin) 5,000 units SC Q8 [facility] PRN Reason: Protocol Last Admin: 09/02/17 13:00 Dose: 5,000 units Ciprofloxacin (Cipro 400mg/200ml Dsw) 400 mg in 200 mls @ 200 mls/hr IVPB Q12@ 0700,1900 [facility] PRN Reason: Protocol Last Admin: 09/02/17 18:22 Dose: 200 mls/hr Insulin Lispro Protam/Lispro Human (Humalog Mix 75/25) 12 units SC BID [facility] Last Admin: 09/02/17 16:19 Dose: 12 units Lactobacillus Acidophilus (Bacid Acidophilus) 1 cap PO BID [facility] Last Admin: 09/02/17 16:21 Dose: 1 cap Lactulose (Enulose) 10 gm PO DAILY [facility] Last Admin: 09/02/17 09:17 Dose: 10 gm Latanoprost (Xalatan Opht) 1 drop OU HS [facility] Last Admin: 09/01/17 21:16 Dose: 1 drop Lidocaine HCl (Xylocaine 2%) 1 applic TOP ONCE PRN PRN Reason: Pain, moderate (4-7) Last Admin: 09/02/17 16:00 Dose: 1 applic Lisinopril (Zestril) 20 mg PO DAILY [facility] Last Admin: 09/02/17 09:16 Dose: 20 mg Multi-Ingredient Ointment (Hydrophor Oint) 1 applic TOP TID [facility] Last Admin: 09/02/17 16:19 Dose: 1 applic Multivitamins/Minerals (Therapeutic-M Tab) 1 tab PO DAILY [facility] Last Admin: 09/02/17 09:17 Dose: 1 tab Mupirocin (Bactroban Ointment) 1 applic TOP BID [facility] Last Admin: 09/02/17 16:18 Dose: 1 applic Ondansetron HCl (Zofran Inj) 4 mg IVP Q6 PRN PRN Reason: Nausea/Vomiting Last Admin: 08/22/17 05:54 Dose: 4 mg Psyllium Hydrophilic Mucilloid (Hydrocil Instant) 1 pkt PO DAILY [facility] Last Admin: 09/02/17 09:17 Dose: 1 pkt Fluticasone/Salmeterol (Advair Diskus 250/50) 1 puff IH Q12 [facility] Last Admin: 09/02/17 09:13 Dose: 1 puff Sennosides (Senokot Tab) 17.2 mg PO HS [facility] Last Admin: 09/01/17 21:15 Dose: 17.2 mg Tamsulosin HCl (Flomax) 0.8 mg PO [facility] Last Admin: 09/01/17 21:14 Dose: 0.8 mg - Labs Labs: 08/29/17 05:20 08/29/17 05:20
[2017-09-02] MEDS: Latanoprost 0.005% Opht SOUTION OU SCH (21:44)
[2017-09-03] MEDS: Ciprofloxacin 400mg/200ml D5W 400 MG/200 ML BAG IVPB SCH ×2 (06:20→18:07)
[2017-09-03] MEDS: Albuterol-Ipratrop 3 mg / 0.5 (3 ml) UD INH SCH ×4 (07:21→19:25)
[2017-09-03] MEDS: Fluticasone-Salmeterol 250-50mcg Diskus IH SCH ×2 (08:18→21:56)
[2017-09-03] MEDS: Lactobacillus Acidophilus 500 MU Cap PO SCH ×2 (08:21→17:04)
[2017-09-03] MEDS: Lactulose 10 gm/15 ml Syrup PO SCH (08:21)
[2017-09-03] MEDS: Hydrophor Oint TOP SCH ×3 (08:22→17:08)
[2017-09-03] MEDS: Insulin Lispro Mix 75/25 100 units/ml (HumaLog) 10ml SC SCH ×2 (08:22→17:08)
[2017-09-03] MEDS: Cholecalciferol 1,000 INTLU TAB PO SCH (08:24)
[2017-09-03] MEDS: Psyllium Packet PO SCH (08:26)
[2017-09-03] MEDS: Multivitamin With Minerals Tab PO SCH (08:27)
--- NOTE | 2017-09-03 09:41 | CP.PCM.PN ---
Subjective - Date & Time of Evaluation Date of Evaluation: 09/03/17 Time of Evaluation: 08:52 - Subjective Subjective: Patient seen and examined today, went into room with nurse, OSORIO, patient denies chest pain, SOB, N/V/D, abdominal pain, patient has hollis cath in place. Objective - Vital Signs/Intake and Output Vital Signs (last 24 hours): Temp Pulse Resp BP Pulse Ox 97.9 F 70 20 144/70 98 09/02/17 20:27 09/03/17 08:25 09/02/17 20:27 09/03/17 08:25 09/02/17 20:27 Intake and Output: 09/03/17 09/03/17 06:59 18:59 Intake Total 400 Output Total 1000 Balance -600 - Medications Medications: Current Medications Acetaminophen (Tylenol 325mg Tab) 650 mg PO Q6 PRN PRN Reason: Pain, moderate (4-7) Albuterol Sulfate (Albuterol 0.083% Inhal Bere (2.5 Mg/3 Ml) Ud) 2.5 mg IH Q6 PRN PRN Reason: Shortness of Breath Last Admin: 08/23/17 03:38 Dose: 2.5 mg Albuterol/Ipratropium (Duoneb 3 Mg/0.5 Mg (3 Ml) Ud) 3 ml INH RQID [facility] Last Admin: 09/03/17 07:21 Dose: 3 ml Amlodipine Besylate (Norvasc) 10 mg PO DAILY [facility] Last Admin: 09/03/17 08:23 Dose: 10 mg Aspirin (Aspirin Chewable) 81 mg PO DAILY [facility] Last Admin: 09/03/17 08:20 Dose: 81 mg Atorvastatin Calcium (Lipitor) 40 mg PO HS [facility] Last Admin: 09/02/17 21:41 Dose: 40 mg Carvedilol (Coreg) 25 mg PO Q12 [facility] Last Admin: 09/03/17 08:19 Dose: 25 mg Cholecalciferol (Vitamin D) 2,000 intlu PO DAILY [facility] Last Admin: 09/03/17 08:24 Dose: 2,000 intlu Clopidogrel Bisulfate (Plavix) 75 mg PO DAILY [facility] Last Admin: 09/03/17 08:19 Dose: 75 mg Dextrose (Dextrose 50% Inj) 0 ml IV STAT PRN; Protocol PRN Reason: Hypoglycemia Protocol Dextrose (Glutose 15) 0 gm PO ONCE PRN; Protocol PRN Reason: Hypoglycemia Protocol Dextrose (Dextrose 50% Inj) 0 ml IV STAT PRN; Protocol PRN Reason: Hypoglycemia Protocol Dextrose (Glutose 15) 0 gm PO ONCE PRN; Protocol PRN Reason: Hypoglycemia Protocol Famotidine (Pepcid) 20 mg PO DAILY [facility] Last Admin: 09/03/17 08:24 Dose: 20 mg Ferrous Sulfate (Feosol) 325 mg PO TID [facility] Last Admin: 09/03/17 08:26 Dose: 325 mg Finasteride (Proscar) 5 mg PO DAILY [facility] Last Admin: 09/03/17 08:26 Dose: 5 mg Furosemide (Lasix) 40 mg PO DAILY [facility] Last Admin: 09/03/17 08:21 Dose: 40 mg Glucagon (Glucagen Diagnostic Kit) 0 mg IM STAT PRN; Protocol PRN Reason: Hypoglycemia Protocol Glucagon (Glucagen Diagnostic Kit) 0 mg IM STAT PRN; Protocol PRN Reason: Hypoglycemia Protocol Heparin Sodium (Porcine) (Heparin) 5,000 units SC Q8 [facility] PRN Reason: Protocol Last Admin: 09/03/17 06:55 Dose: 5,000 units Ciprofloxacin (Cipro 400mg/200ml Dsw) 400 mg in 200 mls @ 200 mls/hr IVPB Q12@ 0700,1900 [facility] PRN Reason: Protocol Last Admin: 09/03/17 06:20 Dose: 200 mls/hr Insulin Lispro Protam/Lispro Human (Humalog Mix 75/25) 12 units SC BID [facility] Last Admin: 09/03/17 08:22 Dose: 12 units Lactobacillus Acidophilus (Bacid Acidophilus) 1 cap PO BID [facility] Last Admin: 09/03/17 08:21 Dose: 1 cap Lactulose (Enulose) 10 gm PO DAILY [facility] Last Admin: 09/03/17 08:21 Dose: 10 gm Latanoprost (Xalatan Opht) 1 drop OU HS [facility] Last Admin: 09/02/17 21:44 Dose: 1 drop Lidocaine HCl (Xylocaine 2%) 1 applic TOP ONCE PRN PRN Reason: Pain, moderate (4-7) Last Admin: 09/02/17 16:00 Dose: 1 applic Lisinopril (Zestril) 20 mg PO DAILY [facility] Last Admin: 09/03/17 08:25 Dose: 20 mg Multi-Ingredient Ointment (Hydrophor Oint) 1 applic TOP TID [facility] Last Admin: 09/03/17 08:22 Dose: 1 applic Multivitamins/Minerals (Therapeutic-M Tab) 1 tab PO DAILY [facility] Last Admin: 09/03/17 08:27 Dose: 1 tab Mupirocin (Bactroban Ointment) 1 applic TOP BID [facility] Last Admin: 09/03/17 08:20 Dose: 1 applic Ondansetron HCl (Zofran Inj) 4 mg IVP Q6 PRN PRN Reason: Nausea/Vomiting Last Admin: 08/22/17 05:54 Dose: 4 mg Psyllium Hydrophilic Mucilloid (Hydrocil Instant) 1 pkt PO DAILY [facility] Last Admin: 09/03/17 08:26 Dose: 1 pkt Fluticasone/Salmeterol (Advair Diskus 250/50) 1 puff IH Q12 [facility] Last Admin: 09/03/17 08:18 Dose: 1 puff Sennosides (Senokot Tab) 17.2 mg PO [facility] Last Admin: 09/02/17 21:46 Dose: 17.2 mg Tamsulosin HCl (Flomax) 0.8 mg PO [facility] Last Admin: 09/02/17 21:41 Dose: 0.8 mg - Labs Labs: 08/29/17 05:20 08/29/17 05:20 - Constitutional Appears: No Acute Distress - Head Exam Head Exam: NORMOCEPHALIC - ENT Exam ENT Exam: Mucous Membranes Moist - Respiratory Exam Respiratory Exam: Clear to Ausculation Bilateral. absent: Rales, Rhonchi, Wheezes - Cardiovascular Exam Cardiovascular Exam: REGULAR RHYTHM, +S1, +S2. absent: JVD - GI/Abdominal Exam GI & Abdominal Exam: Soft, Normal Bowel Sounds - Extremities Exam Extremities Exam: Normal Inspection. absent: Pedal Edema - Neurological Exam Neurological Exam: Alert, Awake, Oriented x3 Neuro motor strength exam: Left Upper Extremity: 5, Right Upper Extremity: 2/1 ( patient has paresis RUE but is able to has some grasp of my fingers), Left Lower Extremity: 5, Right Lower Extremity: 2/1 (unable to elevate leg, some movement noted in toes) Additional comments: Left eye blindness noted - Psychiatric Exam Psychiatric exam: Normal Mood - Skin Skin Exam: Normal Color, Warm Assessment and Plan - Assessment and Plan (Free Text) Assessment: 82 year old male with PMHx of multiple comorbidities, CVA/TIA, left eye blindness, diabetic retinopathy, stroke x 2, CAD s/p 4 stents, was admitted to rehab for therapy after stroke 08/13/17. Today patient was able to speak some words to me in Icelandic although with some dysarthria, was able to follow commands and showed some minimal movements of his RUE and RLE. Chart, VS and nursing notes reviewed. patient had BM today. Plan: Acute Stroke, L temporal/occipital junction (08/12) and acute stroke L frontal lobe (08/13) -Neuro consulted. -c/w Aspirin and Plavix -acute rehab, stable UTI -UA 08/20 back; will f/u WBC -UA with abx culture neg -c/w cipro 400 Q12 x 14 days (08/21/17-09/03/17) Urinary retention - stable - possibly caused by acute stroke added to baseline BPH - c/w flomax 0.8mg po qd - c/w Finasteride 5 mg po qd - hollis cath present - urology consulted; will keep hollis in place until 09/05/17 and do a trial of voiding and If retention persists re-consult urology. DM2 on insulin -diet regimen for DM -humalog 75/25 to 12 units BID -w/f BS, today 138 HTN -controlled at this point -C/w Lisinopril 10daily, 10mg Norvasc, Carvedilol 25mg BID, lasix 40 po QD Normocytic Anemia -stable -last hb 08/29- 8.3 -c/w Iron PO -FOBT +, has ext hemorrhoids -GI consulted; no acute intervention -c/w Famotidine Small abrasion -resolved -likely due to hollis strap -cont to monitor Constipation - resolved - BM today -GI on board, bowel regimen Low vitamin D -Vit D level <12.8 -c/w 2000mg vit D daily CAD s/p stent x 4 -EKG: Sinus bradycardia with occasional premature ventricular complexes, Left ventricular hypertrophy with repolarization abnormality -echo normal LV, EF 55-60% -c/w Coreg, Statin, ASA and plavix History of Diastolic HF -Last ECHO from 11/2013 --> Normal LV syst function; Concentric LVH; Impaired Diastolic function -echo normal LV, EF 55-60% -Continue Lipitor 40 mg, ASA 81mg -Out patient Cardiology: Dr. Carlos Prophylaxis -DVT ppx c/w heparin Q 8h sc 5000 units -c/w probiotic
--- NOTE | 2017-09-03 13:12 | PSY.TMCNF ---
Nursing - Vital Signs Vital Signs (Last 8 hours): Vital Signs 09/03/17 09/03/17 09/03/17 08:19 08:21 08:23 Temperature Pulse Rate 70 70 Respiratory Rate Blood Pressure 144/70 144/70 144/70 O2 Sat by Pulse Oximetry 09/03/17 09/03/17 08:25 09:43 Temperature 97.9 F Pulse Rate 70 79 Respiratory 20 Rate Blood Pressure 144/70 144/72 O2 Sat by Pulse 98 Oximetry Pain: 0 - Precautions: Precautions: Fall Prevention, Aspiration, Cardiac/Pulmonary, Seizure - Medications/Other Issues Comment: Pt is at moderate nutritional risk. Goals-. 1. Pt to consume 75-100 % of meals (not met, continue). 2. Blood glucoses to be between 70-180 mg/dl ( partially met, continue). Follow-up assessment due by 09/09/2017. - Consults Comment: DR Carty,DR Arredondo,DR Thomas,Dr Soco Buck - Wound Left Arm Wound Type: Skin Tear Periwound: Intact Wound Dressing Status: Dry & Intact - Toileting Toileting: Dependent - Bladder Management Bladder Pattern: Retention Voiding Method: Indwelling Catheter - Bowel Management Bowel Pattern: Incontinent - Transfers Transfers: Maximal Assistance - ADL's ADL's: Moderate Assistance - Pain Management Comments: denies any pain - Patient/Family Teaching Comments: N/A - Goals/Time Frame Comments: Pt was seen sitting up in bed with his eyes opened at times. As per [employer] [facility]ER, pt presents with severe expressive aphasia and required to be asked one question at a time. Pt's yes/no presented unreliable. Pt shook head yes to television and listening to music. Will speak with family to determine pt's leisure interests. Physical Therapy - Bed Mobility Bed Mobility: Maximum Assistance - Transfers Wheelchair to Mat: Maximum Assistance Sit to Stand: Verbal Cues, Moderate Assistance - Ambulation Level of Assistance: Moderate Assistance, Maximum Assistance Distance (ft.): 20 Assistive Devices: Wide base quad cane - Stair Negotiation Stairs: Level of Assistance: Not Tested - Standing Balance Static Stand: Minimal Assistance Dynamic Stand: Unable to assess/perform - Pain Comment: discomfort with catheter - Insight/Carryover Insight/Carryover: Fair - Patient/Family Education Comment: CVA recovery, safety - Assessment/Plan Assessment: Pt requires encouragement to participate in sessions and is agreeable following encouragement. Pt is oriented to modifed foreign card task and requires mod-max verbal cues for visual scanning to the R side and for number recognition throughout task. Pt demonstrated improved color recognition and utilizing R hand and fingers to point to cards. Pt's participation is limited by fatigue and discomfort near cathether area. Pt would continue to benefit from participating in recreation therapy sessions throughout stay on unit. - Goals Timeframe: 2 weeks Goals: pt will ambulate 150 ft with NBQC and min A. Pt will perform sit < > stand transfers with NBQC and CGA. Pt will perform all bed mobility with CGA - Provider Therapist: Ele Martinez PT DPT License Number: [id number] Occupational Therapy - Arousal/Attention/Orientation Patient Orientation: Person, Place - ADL/IADL Self Feeding: Verbal Cues, Set-up Help, Minimal Assistance Grooming: Set-up Help, Minimal Assistance Bathing-Upper Extremity: Moderate Assistance Bathing-Lower Extremity: Maximum Assistance Dressing-Upper Extremity: Moderate Assistance Dressing-Lower Extremity: Maximum Assistance - Sitting Balance Static Sitting: Contact Guard Assist Dynamic Sitting: Minimal Assistance - Transfers Wheelchair to Bed Transfers: Verbal Cues, Set-up Help, Moderate Assistance, Maximum Assistance Toilet Transfers: Maximum Assistance - Wheelchair Management Level of Assistance: Maximum Assistance - Upper Extremity Status Right Upper Extremity Comment: PROM IS WLS, Left Upper Extremity Comment: AROM is WFLS - Pain Comment: discomfort with catheter - Insight/Carryover Insight/Carryover: Fair - Patient/Family Education Comment: CVA recovery, safety - Assessment/Plan Assessment: Pt requires encouragement to participate in sessions and is agreeable following encouragement. Pt is oriented to modifed foreign card task and requires mod-max verbal cues for visual scanning to the R side and for number recognition throughout task. Pt demonstrated improved color recognition and utilizing R hand and fingers to point to cards. Pt's participation is limited by fatigue and discomfort near cathether area. Pt would continue to benefit from participating in recreation therapy sessions throughout stay on unit. - Goals Timeframe: 2 weeks Goals: pt will ambulate 150 ft with NBQC and min A. Pt will perform sit < > stand transfers with NBQC and CGA. Pt will perform all bed mobility with CGA - Provider Therapist: REILLY Tran/Pop Speech Therapy - Consult Information Patient on Program: Yes Medical Diagnosis: CVA Treatment Diagnosis: -mild receptive/mild-moderate expressive aphasia. - moderate-severe apraxia of speech. -moderate dysarthria. -mild oral pharyngeal dysphagia - Assessment Expressive Language Impairment: Moderate Comment: mild-moderate Receptive Language Impairment: Mild Speech/Articulation Impairment: Moderate Comment: moderate-severe Dysphagia/Swallowing Impairment: Mild Comment: finely chopped/thin liquids - Plan Assessment: Pt requires encouragement to participate in sessions and is agreeable following encouragement. Pt is oriented to modifed foreign card task and requires mod-max verbal cues for visual scanning to the R side and for number recognition throughout task. Pt demonstrated improved color recognition and utilizing R hand and fingers to point to cards. Pt's participation is limited by fatigue and discomfort near cathether area. Pt would continue to benefit from participating in recreation therapy sessions throughout stay on unit. - Provider Therapist: Natalie Burgos License Number: [id number] Recreational Therapy - Participation Participation: Participates in Individual and/or Group Sessions - Attendance Attendance: 3-5 times per week - Activities Leisure Activities: Cards and Games - Socialization Level of Socialization: Requires 1:1 guidance to respond, Minimal initiation of interaction to request basic needs, Minimal or no response, Socialization severely limited - Diversional Time Diversional Time: television, listening to music - Assessment Assessment/Plan: Pt requires encouragement to participate in sessions and is agreeable following encouragement. Pt is oriented to modifed foreign card task and requires mod-max verbal cues for visual scanning to the R side and for number recognition throughout task. Pt demonstrated improved color recognition and utilizing R hand and fingers to point to cards. Pt's participation is limited by fatigue and discomfort near cathether area. Pt would continue to benefit from participating in recreation therapy sessions throughout stay on unit. Problems Currently Limiting Participation: expressive aphasia, fatigue, decrease arousal level, decrease command following, decrease leisure awareness level Goals and Time Frame: Pt will be encouraged to participate in 1:1 and group recreation therapy sessions 3-5x week for at least 40 minutes to improve arousal level, command following, number and object identification, direction following, and attention to task. - Provider Therapist: Lety Amin, WELFARE INVESTIGATOR #[id number] Nutrition - Current Diet Current Diet/ Supplement/ Feedings: Heart healthy, moderate consistent CHO, mech altered (finely chopped) diet with Suplena once daily. - Appetite Percent Meal Consumed: 50-74% - Comments Comments: N/A - Assessment/Goals/Time Frame Assessment/Goals/Time Frame: Pt is at moderate nutritional risk. Goals-. 1. Pt to consume 75-100% of meals (not met, continue). 2. Blood glucoses to be between 70-180 mg/dl (partially met, continue). Follow-up assessment due by 09/09. - Provider Provider: Holly Gamez MS, RD Case Management - Psychosocial Assessment Support Systems: Jenn Martinez (granddaughter)- [phone], . Kavyageneva Ibarra (daughter)- [phone], . Ramila Philippe (daughter)- [phone] Psychological Interventions/Needs: Patient is alert with receptive and expressive aphasia Discharge Concerns: Patient currently requiring max A for functional mobility, patient with incontinence and apashia Patient/Family Meeting: CM met with patient and CM spoke with family later in the day Intervention/Goal/Outcome:: 1. CHARISSE as patient continues to require max- total A for all functional mobility, list provided to family, CM spoke to [facility] at length and explained benefits of continued inpatient rehab vs outpatient. 2. Tentative discharge date: 09/12/2017. 3. continued emotional support. - Discharge Plan Discharge Plan: Subacute care - Provider Provider: HELEN Emerson, CHARGE ENTRY SPECIALIST License Number: [id number] Rehabilitation Plan - Treatment Plan Treatment Plan: Physical Therapy, Occupational Therapy, Speech, Dietary, Patient /Family Education - Discharge Plan Estimated Date of Discharge: 09/12/17 Discharge to: Subacute
--- NOTE | 2017-09-03 13:41 | CP.PCM.PN ---
Subjective - Date & Time of Evaluation Date of Evaluation: 09/03/17 Time of Evaluation: 13:39 - Subjective Subjective: Patient seen in the room with multiple family members present discussed progress in therapies they are happy with his progress, but I feel that he can be doing better he wants to get home and they are adament that CHARISSE is not going to be good for him family training will be scheduled. Objective - Vital Signs/Intake and Output Vital Signs (last 24 hours): Temp Pulse Resp BP Pulse Ox 97.9 F 79 20 144/72 98 09/03/17 09:43 09/03/17 09:43 09/03/17 09:43 09/03/17 09:43 09/03/17 09:43 Intake and Output: 09/03/17 09/03/17 06:59 18:59 Intake Total 400 Output Total 1000 Balance -600 - Medications Medications: Current Medications Acetaminophen (Tylenol 325mg Tab) 650 mg PO Q6 PRN PRN Reason: Pain, moderate (4-7) Last Admin: 09/03/17 11:03 Dose: 650 mg Albuterol Sulfate (Albuterol 0.083% Inhal Bere (2.5 Mg/3 Ml) Ud) 2.5 mg IH Q6 PRN PRN Reason: Shortness of Breath Last Admin: 08/23/17 03:38 Dose: 2.5 mg Albuterol/Ipratropium (Duoneb 3 Mg/0.5 Mg (3 Ml) Ud) 3 ml INH RQID [facility] Last Admin: 09/03/17 11:02 Dose: Not Given Amlodipine Besylate (Norvasc) 10 mg PO DAILY [facility] Last Admin: 09/03/17 08:23 Dose: 10 mg Aspirin (Aspirin Chewable) 81 mg PO DAILY [facility] Last Admin: 09/03/17 08:20 Dose: 81 mg Atorvastatin Calcium (Lipitor) 40 mg PO HS [facility] Last Admin: 09/02/17 21:41 Dose: 40 mg Carvedilol (Coreg) 25 mg PO Q12 [facility] Last Admin: 09/03/17 08:19 Dose: 25 mg Cholecalciferol (Vitamin D) 2,000 intlu PO DAILY [facility] Last Admin: 09/03/17 08:24 Dose: 2,000 intlu Clopidogrel Bisulfate (Plavix) 75 mg PO DAILY [facility] Last Admin: 09/03/17 08:19 Dose: 75 mg Dextrose (Dextrose 50% Inj) 0 ml IV STAT PRN; Protocol PRN Reason: Hypoglycemia Protocol Dextrose (Glutose 15) 0 gm PO ONCE PRN; Protocol PRN Reason: Hypoglycemia Protocol Dextrose (Dextrose 50% Inj) 0 ml IV STAT PRN; Protocol PRN Reason: Hypoglycemia Protocol Dextrose (Glutose 15) 0 gm PO ONCE PRN; Protocol PRN Reason: Hypoglycemia Protocol Famotidine (Pepcid) 20 mg PO DAILY [facility] Last Admin: 09/03/17 08:24 Dose: 20 mg Ferrous Sulfate (Feosol) 325 mg PO TID [facility] Last Admin: 09/03/17 12:27 Dose: 325 mg Finasteride (Proscar) 5 mg PO DAILY [facility] Last Admin: 09/03/17 08:26 Dose: 5 mg Furosemide (Lasix) 40 mg PO DAILY [facility] Last Admin: 09/03/17 08:21 Dose: 40 mg Glucagon (Glucagen Diagnostic Kit) 0 mg IM STAT PRN; Protocol PRN Reason: Hypoglycemia Protocol Glucagon (Glucagen Diagnostic Kit) 0 mg IM STAT PRN; Protocol PRN Reason: Hypoglycemia Protocol Heparin Sodium (Porcine) (Heparin) 5,000 units SC Q8 [facility] PRN Reason: Protocol Last Admin: 09/03/17 06:55 Dose: 5,000 units Ciprofloxacin (Cipro 400mg/200ml Dsw) 400 mg in 200 mls @ 200 mls/hr IVPB Q12@ 0700,1900 [facility] PRN Reason: Protocol Last Admin: 09/03/17 06:20 Dose: 200 mls/hr Insulin Lispro Protam/Lispro Human (Humalog Mix 75/25) 12 units SC BID [facility] Last Admin: 09/03/17 08:22 Dose: 12 units Lactobacillus Acidophilus (Bacid Acidophilus) 1 cap PO BID [facility] Last Admin: 09/03/17 08:21 Dose: 1 cap Lactulose (Enulose) 10 gm PO DAILY [facility] Last Admin: 09/03/17 08:21 Dose: 10 gm Latanoprost (Xalatan Opht) 1 drop OU HS [facility] Last Admin: 09/02/17 21:44 Dose: 1 drop Lidocaine HCl (Xylocaine 2%) 1 applic TOP ONCE PRN PRN Reason: Pain, moderate (4-7) Last Admin: 09/02/17 16:00 Dose: 1 applic Lisinopril (Zestril) 20 mg PO DAILY [facility] Last Admin: 09/03/17 08:25 Dose: 20 mg Multi-Ingredient Ointment (Hydrophor Oint) 1 applic TOP TID [facility] Last Admin: 09/03/17 12:28 Dose: 1 applic Multivitamins/Minerals (Therapeutic-M Tab) 1 tab PO DAILY [facility] Last Admin: 09/03/17 08:27 Dose: 1 tab Mupirocin (Bactroban Ointment) 1 applic TOP BID [facility] Last Admin: 09/03/17 08:20 Dose: 1 applic Ondansetron HCl (Zofran Inj) 4 mg IVP Q6 PRN PRN Reason: Nausea/Vomiting Last Admin: 08/22/17 05:54 Dose: 4 mg Psyllium Hydrophilic Mucilloid (Hydrocil Instant) 1 pkt PO DAILY [facility] Last Admin: 09/03/17 08:26 Dose: 1 pkt Fluticasone/Salmeterol (Advair Diskus 250/50) 1 puff IH Q12 [facility] Last Admin: 09/03/17 08:18 Dose: 1 puff Sennosides (Senokot Tab) 17.2 mg PO [facility] Last Admin: 09/02/17 21:46 Dose: 17.2 mg Tamsulosin HCl (Flomax) 0.8 mg PO [facility] Last Admin: 09/02/17 21:41 Dose: 0.8 mg - Labs Labs: 08/29/17 05:20 08/29/17 05:20
[2017-09-03] MEDS: Latanoprost 0.005% Opht SOUTION OU SCH (21:57)
[2017-09-04] MEDS: Albuterol-Ipratrop 3 mg / 0.5 (3 ml) UD INH SCH ×4 (07:33→19:19)
[2017-09-04] MEDS: Hydrophor Oint TOP SCH ×3 (08:51→17:36)
[2017-09-04] MEDS: Fluticasone-Salmeterol 250-50mcg Diskus IH SCH ×2 (08:51→21:39)
[2017-09-04] MEDS: Insulin Lispro Mix 75/25 100 units/ml (HumaLog) 10ml SC SCH ×2 (08:52→17:35)
[2017-09-04] MEDS: Multivitamin With Minerals Tab PO SCH (08:52)
[2017-09-04] MEDS: Lactulose 10 gm/15 ml Syrup PO SCH (08:53)
[2017-09-04] MEDS: Cholecalciferol 1,000 INTLU TAB PO SCH (08:54)
[2017-09-04] MEDS: Lactobacillus Acidophilus 500 MU Cap PO SCH ×2 (09:10→17:57)
[2017-09-04] MEDS: Psyllium Packet PO SCH (10:00)
[2017-09-04] MEDS: Latanoprost 0.005% Opht SOUTION OU SCH (21:41)
[2017-09-05] MEDS: Albuterol-Ipratrop 3 mg / 0.5 (3 ml) UD INH SCH ×4 (07:30→19:19)
[2017-09-05] MEDS: Fluticasone-Salmeterol 250-50mcg Diskus IH SCH ×2 (08:26→22:00)
[2017-09-05] MEDS: Lactobacillus Acidophilus 500 MU Cap PO SCH ×2 (08:27→16:46)
[2017-09-05] MEDS: Lactulose 10 gm/15 ml Syrup PO SCH (08:28)
[2017-09-05] MEDS: Insulin Lispro Mix 75/25 100 units/ml (HumaLog) 10ml SC SCH ×2 (08:29→16:46)
[2017-09-05] MEDS: Psyllium Packet PO SCH (08:29)
[2017-09-05] MEDS: Hydrophor Oint TOP SCH ×3 (08:30→16:46)
[2017-09-05] MEDS: Multivitamin With Minerals Tab PO SCH (08:31)
[2017-09-05] MEDS: Cholecalciferol 1,000 INTLU TAB PO SCH (08:32)
--- NOTE | 2017-09-05 10:12 | CP.PCM.PN ---
Subjective - Date & Time of Evaluation Date of Evaluation: 09/05/17 Time of Evaluation: 10:12 - Subjective Subjective: Mr. Fred Banegas was seen and examined at the bedside. His speech continuously improving. He is able to verbalize several trinidadian words and able to state words even in Wolof. He participates in a pleasant conversation. He is able to follow some commands and able to participate during the family training in preparation for home discharge. He remains with right facial droop, right side weakness. There was no untoward events overnight. Objective - Vital Signs/Intake and Output Vital Signs (last 24 hours): Temp Pulse Resp BP Pulse Ox 97.7 F 64 22 156/62 H 96 09/05/17 09:53 09/05/17 09:53 09/05/17 09:53 09/05/17 09:53 09/05/17 09:53 Intake and Output: 09/05/17 09/05/17 06:59 18:59 Intake Total 200 Output Total 750 Balance -550 - Medications Medications: Current Medications Acetaminophen (Tylenol 325mg Tab) 650 mg PO Q6 PRN PRN Reason: Pain, moderate (4-7) Last Admin: 09/04/17 10:25 Dose: 650 mg Albuterol Sulfate (Albuterol 0.083% Inhal Bere (2.5 Mg/3 Ml) Ud) 2.5 mg IH Q6 PRN PRN Reason: Shortness of Breath Last Admin: 08/23/17 03:38 Dose: 2.5 mg Albuterol/Ipratropium (Duoneb 3 Mg/0.5 Mg (3 Ml) Ud) 3 ml INH RQID [facility] Last Admin: 09/05/17 07:30 Dose: 3 ml Amlodipine Besylate (Norvasc) 10 mg PO DAILY [facility] Last Admin: 09/05/17 08:30 Dose: 10 mg Aspirin (Aspirin Chewable) 81 mg PO DAILY [facility] Last Admin: 09/05/17 08:28 Dose: 81 mg Atorvastatin Calcium (Lipitor) 40 mg PO HS [facility] Last Admin: 09/04/17 21:40 Dose: 40 mg Carvedilol (Coreg) 25 mg PO Q12 [facility] Last Admin: 09/05/17 08:28 Dose: 25 mg Cholecalciferol (Vitamin D) 2,000 intlu PO DAILY [facility] Last Admin: 09/05/17 08:32 Dose: 2,000 intlu Clopidogrel Bisulfate (Plavix) 75 mg PO DAILY [facility] Last Admin: 09/05/17 08:27 Dose: 75 mg Clotrimazole (Lotrimin 1% Cream) 1 applic TOP BID [facility] Last Admin: 09/05/17 08:29 Dose: 1 applic Dextrose (Dextrose 50% Inj) 0 ml IV STAT PRN; Protocol PRN Reason: Hypoglycemia Protocol Dextrose (Glutose 15) 0 gm PO ONCE PRN; Protocol PRN Reason: Hypoglycemia Protocol Dextrose (Dextrose 50% Inj) 0 ml IV STAT PRN; Protocol PRN Reason: Hypoglycemia Protocol Dextrose (Glutose 15) 0 gm PO ONCE PRN; Protocol PRN Reason: Hypoglycemia Protocol Famotidine (Pepcid) 20 mg PO DAILY [facility] Last Admin: 09/05/17 08:31 Dose: 20 mg Ferrous Sulfate (Feosol) 325 mg PO TID [facility] Last Admin: 09/05/17 08:29 Dose: 325 mg Finasteride (Proscar) 5 mg PO DAILY [facility] Last Admin: 09/05/17 08:31 Dose: 5 mg Furosemide (Lasix) 40 mg PO DAILY [facility] Last Admin: 09/05/17 08:30 Dose: 40 mg Glucagon (Glucagen Diagnostic Kit) 0 mg IM STAT PRN; Protocol PRN Reason: Hypoglycemia Protocol Glucagon (Glucagen Diagnostic Kit) 0 mg IM STAT PRN; Protocol PRN Reason: Hypoglycemia Protocol Heparin Sodium (Porcine) (Heparin) 5,000 units SC Q8 [facility] PRN Reason: Protocol Last Admin: 09/05/17 06:24 Dose: 5,000 units Insulin Lispro Protam/Lispro Human (Humalog Mix 75/25) 12 units SC BID [facility] Last Admin: 09/05/17 08:29 Dose: 12 units Lactobacillus Acidophilus (Bacid Acidophilus) 1 cap PO BID [facility] Last Admin: 09/05/17 08:27 Dose: 1 cap Lactulose (Enulose) 10 gm PO DAILY [facility] Last Admin: 09/05/17 08:28 Dose: 10 gm Latanoprost (Xalatan Opht) 1 drop OU HS [facility] Last Admin: 09/04/17 21:41 Dose: 1 drop Lidocaine HCl (Xylocaine 2%) 1 applic TOP ONCE PRN PRN Reason: Pain, moderate (4-7) Last Admin: 09/02/17 16:00 Dose: 1 applic Lisinopril (Zestril) 20 mg PO DAILY [facility] Last Admin: 09/05/17 08:32 Dose: 20 mg Multi-Ingredient Ointment (Hydrophor Oint) 1 applic TOP TID [facility] Last Admin: 09/05/17 08:30 Dose: 1 applic Multivitamins/Minerals (Therapeutic-M Tab) 1 tab PO DAILY [facility] Last Admin: 09/05/17 08:31 Dose: 1 tab Mupirocin (Bactroban Ointment) 1 applic TOP BID [facility] Last Admin: 09/05/17 08:28 Dose: 1 applic Ondansetron HCl (Zofran Inj) 4 mg IVP Q6 PRN PRN Reason: Nausea/Vomiting Last Admin: 08/22/17 05:54 Dose: 4 mg Psyllium Hydrophilic Mucilloid (Hydrocil Instant) 1 pkt PO DAILY [facility] Last Admin: 09/05/17 08:29 Dose: 1 pkt Fluticasone/Salmeterol (Advair Diskus 250/50) 1 puff IH Q12 [facility] Last Admin: 09/05/17 08:26 Dose: 1 puff Sennosides (Senokot Tab) 17.2 mg PO [facility] Last Admin: 09/04/17 21:40 Dose: 17.2 mg Tamsulosin HCl (Flomax) 0.8 mg PO [facility] Last Admin: 09/04/17 21:40 Dose: 0.8 mg - Labs Labs: 08/29/17 05:20 08/29/17 05:20 - Constitutional Appears: No Acute Distress - Head Exam Head Exam: NORMAL INSPECTION - Eye Exam Pupil Exam: PERRL - Neurological Exam Neurological Exam: Alert, Awake Neuro motor strength exam: Left Upper Extremity: 5, Right Upper Extremity: 3, Left Lower Extremity: 5, Right Lower Extremity: 3 Additional comments: neurological unchanged from previous examination. Assessment and Plan (1) Ischemic stroke Assessment & Plan: Case discussed with Dr. Thomas, continue all current medical, physical, and occupational therapies. Recommend Blood pressure and glycemic control, hydration , Keep head of bed elevated at least 30 degrees angle when in bed, follow up with a neurologist in 2 weeks after discharge. If the patient would like to follow up with Dr. Thomas/ Roderick at [address] [place] [address] [place] [address], tel. [phone]. Status: Acute
--- NOTE | 2017-09-05 17:12 | CP.PCM.PN ---
Subjective - Date & Time of Evaluation Date of Evaluation: 09/05/17 Time of Evaluation: 10:00 - Subjective Subjective: Patient seen doing PT today, examined today, NAD, noted in good mood, patient denies chest pain, SOB, N/V/D, abdominal pain Objective - Vital Signs/Intake and Output Vital Signs (last 24 hours): Temp Pulse Resp BP Pulse Ox 97.7 F 64 22 156/62 H 96 09/05/17 09:53 09/05/17 09:53 09/05/17 09:53 09/05/17 09:53 09/05/17 09:53 Intake and Output: 09/05/17 09/05/17 06:59 18:59 Intake Total 200 Output Total 750 Balance -550 - Medications Medications: Current Medications Acetaminophen (Tylenol 325mg Tab) 650 mg PO Q6 PRN PRN Reason: Pain, moderate (4-7) Last Admin: 09/04/17 10:25 Dose: 650 mg Albuterol Sulfate (Albuterol 0.083% Inhal Bere (2.5 Mg/3 Ml) Ud) 2.5 mg IH Q6 PRN PRN Reason: Shortness of Breath Last Admin: 08/23/17 03:38 Dose: 2.5 mg Albuterol/Ipratropium (Duoneb 3 Mg/0.5 Mg (3 Ml) Ud) 3 ml INH RQID [facility] Last Admin: 09/05/17 15:46 Dose: 3 ml Amlodipine Besylate (Norvasc) 10 mg PO DAILY [facility] Last Admin: 09/05/17 08:30 Dose: 10 mg Aspirin (Aspirin Chewable) 81 mg PO DAILY [facility] Last Admin: 09/05/17 08:28 Dose: 81 mg Atorvastatin Calcium (Lipitor) 40 mg PO HS [facility] Last Admin: 09/04/17 21:40 Dose: 40 mg Carvedilol (Coreg) 25 mg PO Q12 [facility] Last Admin: 09/05/17 08:28 Dose: 25 mg Cholecalciferol (Vitamin D) 2,000 intlu PO DAILY [facility] Last Admin: 09/05/17 08:32 Dose: 2,000 intlu Clopidogrel Bisulfate (Plavix) 75 mg PO DAILY [facility] Last Admin: 09/05/17 08:27 Dose: 75 mg Clotrimazole (Lotrimin 1% Cream) 1 applic TOP BID [facility] Last Admin: 09/05/17 16:47 Dose: 1 applic Dextrose (Dextrose 50% Inj) 0 ml IV STAT PRN; Protocol PRN Reason: Hypoglycemia Protocol Dextrose (Glutose 15) 0 gm PO ONCE PRN; Protocol PRN Reason: Hypoglycemia Protocol Dextrose (Dextrose 50% Inj) 0 ml IV STAT PRN; Protocol PRN Reason: Hypoglycemia Protocol Dextrose (Glutose 15) 0 gm PO ONCE PRN; Protocol PRN Reason: Hypoglycemia Protocol Famotidine (Pepcid) 20 mg PO DAILY [facility] Last Admin: 09/05/17 08:31 Dose: 20 mg Ferrous Sulfate (Feosol) 325 mg PO TID [facility] Last Admin: 09/05/17 16:46 Dose: 325 mg Finasteride (Proscar) 5 mg PO DAILY [facility] Last Admin: 09/05/17 08:31 Dose: 5 mg Furosemide (Lasix) 40 mg PO DAILY [facility] Last Admin: 09/05/17 08:30 Dose: 40 mg Glucagon (Glucagen Diagnostic Kit) 0 mg IM STAT PRN; Protocol PRN Reason: Hypoglycemia Protocol Glucagon (Glucagen Diagnostic Kit) 0 mg IM STAT PRN; Protocol PRN Reason: Hypoglycemia Protocol Heparin Sodium (Porcine) (Heparin) 5,000 units SC Q8 [facility] PRN Reason: Protocol Last Admin: 09/05/17 13:17 Dose: 5,000 units Insulin Lispro Protam/Lispro Human (Humalog Mix 75/25) 12 units SC BID [facility] Last Admin: 09/05/17 16:46 Dose: 12 units Lactobacillus Acidophilus (Bacid Acidophilus) 1 cap PO BID [facility] Last Admin: 09/05/17 16:46 Dose: 1 cap Lactulose (Enulose) 10 gm PO DAILY [facility] Last Admin: 09/05/17 08:28 Dose: 10 gm Latanoprost (Xalatan Opht) 1 drop OU HS [facility] Last Admin: 09/04/17 21:41 Dose: 1 drop Lidocaine HCl (Xylocaine 2%) 1 applic TOP ONCE PRN PRN Reason: Pain, moderate (4-7) Last Admin: 09/02/17 16:00 Dose: 1 applic Lisinopril (Zestril) 20 mg PO DAILY [facility] Last Admin: 09/05/17 08:32 Dose: 20 mg Multi-Ingredient Ointment (Hydrophor Oint) 1 applic TOP TID [facility] Last Admin: 09/05/17 16:46 Dose: 1 applic Multivitamins/Minerals (Therapeutic-M Tab) 1 tab PO DAILY [facility] Last Admin: 09/05/17 08:31 Dose: 1 tab Mupirocin (Bactroban Ointment) 1 applic TOP BID [facility] Last Admin: 09/05/17 16:46 Dose: 1 applic Ondansetron HCl (Zofran Inj) 4 mg IVP Q6 PRN PRN Reason: Nausea/Vomiting Last Admin: 08/22/17 05:54 Dose: 4 mg Psyllium Hydrophilic Mucilloid (Hydrocil Instant) 1 pkt PO DAILY [facility] Last Admin: 09/05/17 08:29 Dose: 1 pkt Fluticasone/Salmeterol (Advair Diskus 250/50) 1 puff IH Q12 [facility] Last Admin: 09/05/17 08:26 Dose: 1 puff Sennosides (Senokot Tab) 17.2 mg PO [facility] Last Admin: 09/04/17 21:40 Dose: 17.2 mg Tamsulosin HCl (Flomax) 0.8 mg PO [facility] Last Admin: 09/04/17 21:40 Dose: 0.8 mg - Labs Labs: 08/29/17 05:20 08/29/17 05:20 - Constitutional Appears: No Acute Distress - Head Exam Head Exam: ATRAUMATIC, NORMOCEPHALIC - Eye Exam Eye Exam: PERRL - ENT Exam ENT Exam: Mucous Membranes Moist - Respiratory Exam Respiratory Exam: Clear to Ausculation Bilateral. absent: Rales, Rhonchi, Wheezes - Cardiovascular Exam Cardiovascular Exam: REGULAR RHYTHM, +S1, +S2 - GI/Abdominal Exam GI & Abdominal Exam: Soft, Normal Bowel Sounds. absent: Organomegaly - Extremities Exam Extremities Exam: absent: Pedal Edema - Neurological Exam Neurological Exam: Alert, Awake, Oriented x3 - Psychiatric Exam Psychiatric exam: Normal Affect, Normal Mood - Skin Skin Exam: Normal Color, Warm Assessment and Plan - Assessment and Plan (Free Text) Assessment: 82 year old male with PMHx of multiple comorbidities, CVA/TIA, left eye blindness, diabetic retinopathy, stroke x 2, CAD s/p 4 stents, was admitted to rehab for therapy after stroke 08/13/17. Today hollis was removed, patient unable to void after trial, hollis reinserted and left in place with 700 ml urine output initially, bro[place]nn re-consult urology. Plan: Acute Stroke, L temporal/occipital junction (08/12) and acute stroke L frontal lobe (08/13) -Neuro consulted. -c/w Aspirin and Plavix -acute rehab, stable -w/c rehab Urinary retention - stable - possibly caused by acute stroke added to baseline BPH - c/w flomax 0.8mg po qd - c/w Finasteride 5 mg po qd - hollis cath removed and reinserted after voiding trial fail - will consult urology UTI -resolved -wbc 8.4 -UA with abx culture neg -c/w cipro 400 Q12 x 14 days (08/21/17-09/03/17)finished DM2 on insulin -diet regimen for DM -humalog 75/25 to 12 units BID -w/f BS, today 138 HTN -controlled at this point -C/w Lisinopril 10daily, 10mg Norvasc, Carvedilol 25mg BID, lasix 40 po QD Normocytic Anemia -stable -last hb 08/29- 8.3 -c/w Iron PO -FOBT +, has ext hemorrhoids -GI consulted; no acute intervention -c/w Famotidine Small abrasion -resolved -likely due to hollis strap -cont to monitor Constipation - resolved -bowel regimen Low vitamin D -Vit D level <12.8 -c/w 2000mg vit D daily CAD s/p stent x 4 -EKG: Sinus bradycardia with occasional premature ventricular complexes, Left ventricular hypertrophy with repolarization abnormality -echo normal LV, EF 55-60% -c/w Coreg, Statin, ASA and plavix History of Diastolic HF -Last ECHO from 11/2013 --> Normal LV syst function; Concentric LVH; Impaired Diastolic function -echo normal LV, EF 55-60% -Continue Lipitor 40 mg, ASA 81mg -Out patient Cardiology: Dr. Carlos Prophylaxis -DVT ppx c/w heparin Q 8h sc 5000 units -c/w probiotic
[2017-09-05 17:47] LABS: BASO % 0.4 % (0.0-2.0); EOS # 0.4 K/uL (0.0-0.7); EOS % 4.1 % (0.0-4.0); HEMOGLOBIN 8.9 g/dL (12.0-18.0); LYMPH # 0.8 K/uL (1.0-4.3); LYMPH % 8.8 % (20.0-40.0); MEAN CELL VOLUME 91.8 fl (80.0-94.0); MEAN CORPUSCULAR HEMOGLOBIN 31.2 pg (27.0-31.0); MEAN PLATELET VOLUME 8.6 fl (7.2-11.7); MONO # 0.9 K/uL (0.0-0.8); MONO % 9.6 % (0.0-10.0); NEUT # 7.1 K/uL (1.8-7.0); NEUT % 77.1 % (50.0-75.0); NRBC % 0.1 % (0.0-0.0); PLATELET COUNT 353 K/uL (130-400); RBC 2.84 Mil/uL (4.40-5.90); RED CELL DISTRIBUTION WIDTH 14.7 % (11.5-14.5); WHITE BLOOD COUNT 9.2 K/uL (4.8-10.8)
[2017-09-05 18:01] LABS: CALCIUM 8.9 mg/dL (8.4-10.2)
[2017-09-05 18:52] LABS: URINE BACTERIA OCC (<OCC); URINE BILIRUBIN NEGATIVE (NEGATIVE); URINE BLOOD SMALL (NEGATIVE); URINE CLARITY TURBID (Clear); URINE COLOR YELLOW (YELLOW); URINE GLUCOSE (UA) NEG (Normal); URINE LEUKOCYTE ESTERASE LARGE Leu/uL (Negative); URINE PROTEIN 100 mg/dL (NEGATIVE); URINE UROBILINOGEN 0.2-1.0 mg/dL (0.2-1.0); WBC CLUMPS MANY /hpf
[2017-09-05 19:38] LABS: ANISOCYTOSIS SLIGHT; EOSINOPHIL 1 % (0-7); LYMPHOCYTE 11 % (20-50); MICROCYTOSIS SLIGHT; MONOCYTE 6 % (0-10); NEUTROPHIL 82 % (42-75); OVALOCYTES MODERATE; PLATELET ESTIMATE NORMAL (NORMAL); TOTAL CELLS COUNTED 100
[2017-09-05 19:39] LABS: LARGE PLATELETS PRESENT; TEARDROP CELLS SLIGHT
[2017-09-05] MEDS: Latanoprost 0.005% Opht SOUTION OU SCH (22:00)
--- NOTE | 2017-09-06 04:28 | CON ---
DATE: 09/05/2017 COMPREHENSIVE UROLOGIC CONSULTATION TIME OF CONSULTATION: Roughly 5 p.m. BRIEF HISTORY: This patient is an 82-year-old male from [place], status post a left CVA with right-sided weakness on 08/13/2017, eventually causing the patient to go into acute urinary retention, and the reason for the requested consultation. Multiple straight caths resulted in more than 700 mL residual urine, and the patient is eventually complaining of lower abdominal distention with pain. The Johnson catheter now was left indwelling to gravity drainage. The patient also had a prior stroke about 11 years ago where he recovered completely, and he did not have any voiding problems during that stoke. The patient is also status post a bowel resection for colon cancer in 1987, and has had no recurrence since the surgery. No history of any radiation or chemotherapy. PAST MEDICAL HISTORY: The patient's additional medical history includes diastolic heart failure, followed by Dr. Delgado, multigrapher; COPD; CAD, status post 4 coronary stents; chronic kidney disease; diabetes mellitus type 2, on insulin; hypertension; hyperlipidemia; colon CA; TIA/CVA in 1988; left eye blindness; diabetic retinopathy; additional strokes at least x2. MEDICATIONS: The patient has never required any medication for treatment of BPH, such as Flomax or Proscar. SOCIAL HISTORY: He stopped drinking and smoking more than 10 years ago. ALLERGIES: HIS ONLY ALLERGY IS TO MORPHINE. PHYSICAL EXAMINATION: Today; GENERAL: The patient is a well-developed, well-nourished, slightly obese, male. Alert, oriented. HEENT: Grossly within normal limits. NECK: Supple. Thyroid not palpable. ABDOMEN: Soft. Not distended. Nontender. No CVA tenderness. No suprapubic tenderness. Johnson catheter is draining filomena urine well. GENITALIA: Testicles are down bilaterally, nontender, without any masses. RECTAL: Normal rectal tone without fluctuance or masses. Prostate is average-sized to slightly enlarged, smooth, symmetrical, and nontender without nodules or indurations with a palpable median sulcus. LABORATORY EVALUATION: On 08/29/2017, shows a CBC with a WBC count of 8.4, hemoglobin of 8.3, and hematocrit of 24.4, indicating a relatively severe anemia. Platelet count was 367,000. His chem profile shows a sodium of 138, potassium 4, chloride 102, CO2 of 28, BUN and creatinine of 18 and 1.7 respectively with a GFR of 39 indicating chronic kidney disease stage 3. Glucose level was 246, and a random glucose level was 99. Hemoglobin A1c was 9.2. Lactic acid was 1.5. Calcium 8.7. AST was 24, ALT 24, alkaline phosphatase was 88. Triglycerides level was 138, cholesterol level was 213, LDL was 131, and HDL was 27. Vitamin D 25-hydroxy was less than 12.8. TSH was 0.78. Prolactin level was 8.3. Urinalysis, on 08/20/2017, the color was filomena, clarity was cloudy, pH was 5, specific gravity 1.023. Protein was greater than 500, glucose was greater than 500, ketones were trace, blood was small, nitrite was negative, bilirubin was negative, urobilinogen was 4. Leukocyte esterase was moderate. There were 76 rbc's and few wbc's with 154 wbc's per high power field. DIAGNOSTIC IMPRESSION: To this patient; 1. Acute urinary retention, post stroke on 08/13/2017. 2. Benign prostatic hyperplasia. PLAN: For this patient is to maintain the patient on Flomax 0.4 mg twice a day and Proscar 5 mg daily for treatment of BPH and urinary retention. We will also order urine for analysis and culture and sensitivity. We will get a repeat CBC and SMA-7. We will also order a PSA. Shamar Boss MD MTDHaris
[2017-09-06 06:25] LABS: HEMOGLOBIN 8.6 g/dL (12.0-18.0); MEAN CELL VOLUME 91.8 fl (80.0-94.0); MEAN CORPUSCULAR HEMOGLOBIN 31.1 pg (27.0-31.0); MEAN CORPUSCULAR HGB CONC 33.9 g/dL (33.0-37.0); RBC 2.75 Mil/uL (4.40-5.90); RED CELL DISTRIBUTION WIDTH 14.4 % (11.5-14.5); WHITE BLOOD COUNT 7.3 K/uL (4.8-10.8)
[2017-09-06 06:38] LABS: INR 1.1 (0.9-1.2); PROTHROMBIN TIME 12.6 Seconds (9.8-13.1)
[2017-09-06] MEDS: Albuterol-Ipratrop 3 mg / 0.5 (3 ml) UD INH SCH ×4 (07:21→19:16)
[2017-09-06 07:50] LABS: ALB/GLOB RATIO 1.1 (1.0-2.1); CALCIUM 8.7 mg/dL (8.4-10.2)
[2017-09-06] MEDS: Hydrophor Oint TOP SCH ×3 (08:08→17:00)
[2017-09-06] MEDS: Lactobacillus Acidophilus 500 MU Cap PO SCH ×2 (08:08→17:00)
[2017-09-06] MEDS: Lactulose 10 gm/15 ml Syrup PO SCH (08:08)
[2017-09-06] MEDS: Fluticasone-Salmeterol 250-50mcg Diskus IH SCH ×2 (08:09→21:27)
[2017-09-06] MEDS: Cholecalciferol 1,000 INTLU TAB PO SCH (08:11)
[2017-09-06] MEDS: Multivitamin With Minerals Tab PO SCH (08:12)
[2017-09-06] MEDS: Insulin Lispro Mix 75/25 100 units/ml (HumaLog) 10ml SC SCH ×2 (08:12→17:01)
[2017-09-06] MEDS: Psyllium Packet PO SCH (08:13)
--- NOTE | 2017-09-06 10:43 | CP.PCM.PN ---
Subjective - Date & Time of Evaluation Date of Evaluation: 09/06/17 Time of Evaluation: 10:43 - Subjective Subjective: Mr. Fred Banegas was seen and examined during therapy session. His speech continuously improving including the movement of his tongue. He is able to verbalize several iraqi words and able to state words even in Austrian. He participates in a pleasant conversation. He is able to follow some commands and able to participate during the family training in preparation for home discharge. He remains with right facial droop, right side weakness. There was no untoward events overnight. Objective - Vital Signs/Intake and Output Vital Signs (last 24 hours): Temp Pulse Resp BP Pulse Ox 98.6 F 67 20 144/79 97 09/06/17 08:00 09/06/17 08:12 09/06/17 08:00 09/06/17 08:12 09/06/17 08:00 Intake and Output: 09/06/17 09/06/17 06:59 18:59 Intake Total 240 Output Total 1200 Balance -960 - Medications Medications: Current Medications Acetaminophen (Tylenol 325mg Tab) 650 mg PO Q6 PRN PRN Reason: Pain, moderate (4-7) Last Admin: 09/04/17 10:25 Dose: 650 mg Albuterol Sulfate (Albuterol 0.083% Inhal Bere (2.5 Mg/3 Ml) Ud) 2.5 mg IH Q6 PRN PRN Reason: Shortness of Breath Last Admin: 08/23/17 03:38 Dose: 2.5 mg Albuterol/Ipratropium (Duoneb 3 Mg/0.5 Mg (3 Ml) Ud) 3 ml INH RQID [facility] Last Admin: 09/06/17 07:21 Dose: 3 ml Amlodipine Besylate (Norvasc) 10 mg PO DAILY [facility] Last Admin: 09/06/17 08:10 Dose: 10 mg Aspirin (Aspirin Chewable) 81 mg PO DAILY [facility] Last Admin: 09/06/17 08:13 Dose: 81 mg Atorvastatin Calcium (Lipitor) 40 mg PO HS [facility] Last Admin: 09/05/17 22:01 Dose: 40 mg Carvedilol (Coreg) 25 mg PO Q12 [facility] Last Admin: 09/06/17 08:11 Dose: 25 mg Cholecalciferol (Vitamin D) 2,000 intlu PO DAILY [facility] Last Admin: 09/06/17 08:11 Dose: 2,000 intlu Clopidogrel Bisulfate (Plavix) 75 mg PO DAILY [facility] Last Admin: 09/06/17 08:10 Dose: 75 mg Clotrimazole (Lotrimin 1% Cream) 1 applic TOP BID [facility] Last Admin: 09/06/17 08:10 Dose: 1 applic Dextrose (Dextrose 50% Inj) 0 ml IV STAT PRN; Protocol PRN Reason: Hypoglycemia Protocol Dextrose (Glutose 15) 0 gm PO ONCE PRN; Protocol PRN Reason: Hypoglycemia Protocol Dextrose (Dextrose 50% Inj) 0 ml IV STAT PRN; Protocol PRN Reason: Hypoglycemia Protocol Dextrose (Glutose 15) 0 gm PO ONCE PRN; Protocol PRN Reason: Hypoglycemia Protocol Famotidine (Pepcid) 20 mg PO DAILY [facility] Last Admin: 09/06/17 08:12 Dose: 20 mg Ferrous Sulfate (Feosol) 325 mg PO TID [facility] Last Admin: 09/06/17 08:11 Dose: 325 mg Finasteride (Proscar) 5 mg PO DAILY [facility] Last Admin: 09/06/17 08:10 Dose: 5 mg Furosemide (Lasix) 40 mg PO DAILY [facility] Last Admin: 09/06/17 08:10 Dose: 40 mg Glucagon (Glucagen Diagnostic Kit) 0 mg IM STAT PRN; Protocol PRN Reason: Hypoglycemia Protocol Glucagon (Glucagen Diagnostic Kit) 0 mg IM STAT PRN; Protocol PRN Reason: Hypoglycemia Protocol Heparin Sodium (Porcine) (Heparin) 5,000 units SC Q8 [facility] PRN Reason: Protocol Last Admin: 09/06/17 06:33 Dose: 5,000 units Insulin Lispro Protam/Lispro Human (Humalog Mix 75/25) 12 units SC BID [facility] Last Admin: 09/06/17 08:12 Dose: 12 units Lactobacillus Acidophilus (Bacid Acidophilus) 1 cap PO BID [facility] Last Admin: 09/06/17 08:08 Dose: 1 cap Lactulose (Enulose) 10 gm PO DAILY [facility] Last Admin: 09/06/17 08:08 Dose: 10 gm Latanoprost (Xalatan Opht) 1 drop OU HS [facility] Last Admin: 09/05/17 22:00 Dose: 1 drop Lidocaine HCl (Xylocaine 2%) 1 applic TOP ONCE PRN PRN Reason: Pain, moderate (4-7) Last Admin: 09/02/17 16:00 Dose: 1 applic Lisinopril (Zestril) 20 mg PO DAILY [facility] Last Admin: 09/06/17 08:12 Dose: 20 mg Multi-Ingredient Ointment (Hydrophor Oint) 1 applic TOP TID [facility] Last Admin: 09/06/17 08:08 Dose: 1 applic Multivitamins/Minerals (Therapeutic-M Tab) 1 tab PO DAILY [facility] Last Admin: 09/06/17 08:12 Dose: 1 tab Mupirocin (Bactroban Ointment) 1 applic TOP BID [facility] Last Admin: 09/05/17 16:46 Dose: 1 applic Ondansetron HCl (Zofran Inj) 4 mg IVP Q6 PRN PRN Reason: Nausea/Vomiting Last Admin: 08/22/17 05:54 Dose: 4 mg Psyllium Hydrophilic Mucilloid (Hydrocil Instant) 1 pkt PO DAILY [facility] Last Admin: 09/06/17 08:13 Dose: 1 pkt Fluticasone/Salmeterol (Advair Diskus 250/50) 1 puff IH Q12 [facility] Last Admin: 09/06/17 08:09 Dose: 1 puff Sennosides (Senokot Tab) 17.2 mg PO HS [facility] Last Admin: 09/05/17 22:02 Dose: 17.2 mg Tamsulosin HCl (Flomax) 0.8 mg PO HS [facility] Last Admin: 09/05/17 22:02 Dose: 0.8 mg Tamsulosin HCl (Flomax) 0.8 mg PO DAILY [facility] Last Admin: 09/06/17 08:11 Dose: 0.8 mg - Labs Labs: 09/06/17 05:15 09/06/17 05:15 PT 12.6 Seconds (9.8-13.1) 09/06/17 05:15 INR 1.1 (0.9-1.2) 09/06/17 05:15 Assessment and Plan (1) Ischemic stroke Assessment & Plan: Case discussed with Dr. Thomas, continue all current medical, physical, and occupational therapies. Recommend Blood pressure and glycemic control, hydration , Keep head of bed elevated at least 30 degrees angle when in bed, follow up with a neurologist in 2 weeks after discharge. If the patient would like to follow up with Dr. Thomas/ Roderick at [address] [place] [address] [place] [address], tel. [phone]. Status: Acute
--- NOTE | 2017-09-06 14:23 | CP.PCM.PN ---
Subjective - Date & Time of Evaluation Date of Evaluation: 09/06/17 Time of Evaluation: 14:22 - Subjective Subjective: Patient seen in therapy getting family training minimal gains since last evaluation. Supportive family no sob/cp no cyanosis or jaundice continue current care Objective - Vital Signs/Intake and Output Vital Signs (last 24 hours): Temp Pulse Resp BP Pulse Ox 98.6 F 67 20 144/79 97 09/06/17 08:00 09/06/17 08:12 09/06/17 08:00 09/06/17 08:12 09/06/17 08:00 Intake and Output: 09/06/17 09/06/17 06:59 18:59 Intake Total 240 Output Total 1200 Balance -960 - Medications Medications: Current Medications Acetaminophen (Tylenol 325mg Tab) 650 mg PO Q6 PRN PRN Reason: PAIN SCALE 1-10. Albuterol Sulfate (Albuterol 0.083% Inhal Bere (2.5 Mg/3 Ml) Ud) 2.5 mg IH Q6 PRN PRN Reason: Shortness of Breath Last Admin: 08/23/17 03:38 Dose: 2.5 mg Albuterol/Ipratropium (Duoneb 3 Mg/0.5 Mg (3 Ml) Ud) 3 ml INH RQID [facility] Last Admin: 09/06/17 12:03 Dose: 3 ml Amlodipine Besylate (Norvasc) 10 mg PO DAILY [facility] Last Admin: 09/06/17 08:10 Dose: 10 mg Aspirin (Aspirin Chewable) 81 mg PO DAILY [facility] Last Admin: 09/06/17 08:13 Dose: 81 mg Atorvastatin Calcium (Lipitor) 40 mg PO HS [facility] Last Admin: 09/05/17 22:01 Dose: 40 mg Carvedilol (Coreg) 25 mg PO Q12 [facility] Last Admin: 09/06/17 08:11 Dose: 25 mg Cholecalciferol (Vitamin D) 2,000 intlu PO DAILY [facility] Last Admin: 09/06/17 08:11 Dose: 2,000 intlu Clopidogrel Bisulfate (Plavix) 75 mg PO DAILY [facility] Last Admin: 09/06/17 08:10 Dose: 75 mg Clotrimazole (Lotrimin 1% Cream) 1 applic TOP BID [facility] Last Admin: 09/06/17 08:10 Dose: 1 applic Dextrose (Dextrose 50% Inj) 0 ml IV STAT PRN; Protocol PRN Reason: Hypoglycemia Protocol Dextrose (Glutose 15) 0 gm PO ONCE PRN; Protocol PRN Reason: Hypoglycemia Protocol Dextrose (Dextrose 50% Inj) 0 ml IV STAT PRN; Protocol PRN Reason: Hypoglycemia Protocol Dextrose (Glutose 15) 0 gm PO ONCE PRN; Protocol PRN Reason: Hypoglycemia Protocol Famotidine (Pepcid) 20 mg PO DAILY [facility] Last Admin: 09/06/17 08:12 Dose: 20 mg Ferrous Sulfate (Feosol) 325 mg PO TID [facility] Last Admin: 09/06/17 13:22 Dose: 325 mg Finasteride (Proscar) 5 mg PO DAILY [facility] Last Admin: 09/06/17 08:10 Dose: 5 mg Furosemide (Lasix) 40 mg PO DAILY [facility] Last Admin: 09/06/17 08:10 Dose: 40 mg Glucagon (Glucagen Diagnostic Kit) 0 mg IM STAT PRN; Protocol PRN Reason: Hypoglycemia Protocol Glucagon (Glucagen Diagnostic Kit) 0 mg IM STAT PRN; Protocol PRN Reason: Hypoglycemia Protocol Heparin Sodium (Porcine) (Heparin) 5,000 units SC Q8 [facility] PRN Reason: Protocol Last Admin: 09/06/17 13:21 Dose: 5,000 units Insulin Lispro Protam/Lispro Human (Humalog Mix 75/25) 12 units SC BID [facility] Last Admin: 09/06/17 08:12 Dose: 12 units Lactobacillus Acidophilus (Bacid Acidophilus) 1 cap PO BID [facility] Last Admin: 09/06/17 08:08 Dose: 1 cap Lactulose (Enulose) 10 gm PO DAILY [facility] Last Admin: 09/06/17 08:08 Dose: 10 gm Latanoprost (Xalatan Opht) 1 drop OU HS [facility] Last Admin: 09/05/17 22:00 Dose: 1 drop Lidocaine HCl (Xylocaine 2%) 1 applic TOP ONCE PRN PRN Reason: Pain, moderate (4-7) Last Admin: 09/02/17 16:00 Dose: 1 applic Lisinopril (Zestril) 20 mg PO DAILY [facility] Last Admin: 09/06/17 08:12 Dose: 20 mg Multi-Ingredient Ointment (Hydrophor Oint) 1 applic TOP TID [facility] Last Admin: 09/06/17 13:22 Dose: 1 applic Multivitamins/Minerals (Therapeutic-M Tab) 1 tab PO DAILY [facility] Last Admin: 09/06/17 08:12 Dose: 1 tab Mupirocin (Bactroban Ointment) 1 applic TOP BID [facility] Last Admin: 09/06/17 11:33 Dose: 1 applic Ondansetron HCl (Zofran Inj) 4 mg IVP Q6 PRN PRN Reason: Nausea/Vomiting Last Admin: 08/22/17 05:54 Dose: 4 mg Psyllium Hydrophilic Mucilloid (Hydrocil Instant) 1 pkt PO DAILY [facility] Last Admin: 09/06/17 08:13 Dose: 1 pkt Fluticasone/Salmeterol (Advair Diskus 250/50) 1 puff IH Q12 [facility] Last Admin: 09/06/17 08:09 Dose: 1 puff Sennosides (Senokot Tab) 17.2 mg PO HS [facility] Last Admin: 09/05/17 22:02 Dose: 17.2 mg Tamsulosin HCl (Flomax) 0.8 mg PO HS [facility] Last Admin: 09/05/17 22:02 Dose: 0.8 mg Tamsulosin HCl (Flomax) 0.8 mg PO DAILY [facility] Last Admin: 09/06/17 08:11 Dose: 0.8 mg - Labs Labs: 09/06/17 05:15 09/06/17 05:15 PT 12.6 Seconds (9.8-13.1) 09/06/17 05:15 INR 1.1 (0.9-1.2) 09/06/17 05:15
[2017-09-06] MEDS: Lidocaine 2% GEL TOP PRN (17:01)
[2017-09-06 19:59] LABS: TOTAL PSA 8.5 ng/mL (< or = 4.0)
[2017-09-06] MEDS: Latanoprost 0.005% Opht SOUTION OU SCH (21:29)
[2017-09-07] MEDS: Albuterol-Ipratrop 3 mg / 0.5 (3 ml) UD INH SCH ×4 (07:36→19:10)
[2017-09-07] MEDS: Multivitamin With Minerals Tab PO SCH (08:14)
[2017-09-07] MEDS: Hydrophor Oint TOP SCH ×3 (08:14→17:15)
[2017-09-07] MEDS: Fluticasone-Salmeterol 250-50mcg Diskus IH SCH ×2 (08:14→21:43)
[2017-09-07] MEDS: Psyllium Packet PO SCH (08:15)
[2017-09-07] MEDS: Lactobacillus Acidophilus 500 MU Cap PO SCH ×2 (08:16→17:14)
[2017-09-07] MEDS: Cholecalciferol 1,000 INTLU TAB PO SCH (08:16)
[2017-09-07] MEDS: Insulin Lispro Mix 75/25 100 units/ml (HumaLog) 10ml SC SCH ×2 (08:16→17:14)
[2017-09-07] MEDS: Lactulose 10 gm/15 ml Syrup PO SCH (08:17)
[2017-09-07] MEDS: Fluconazole 150 MG TAB PO SCH (17:14)
--- NOTE | 2017-09-07 20:28 | PN ---
DATE: 09/07/2017 TIME OF FOLLOWUP: Roughly 03:35 p.m. SUBJECTIVE: The patient is resting very comfortably with his indwelling Johnson catheter draining filomena urine well. No complaint of renal colic or abdominal pain. No testicular pain. PHYSICAL EXAMINATION: ABDOMEN: Soft, nondistended, nontender. No CVA tenderness and no suprapubic tenderness. LABORATORY DATA: Laboratory evaluation done on 09/05/2017 showed a urinalysis with the color was yellow, clarity was turbid, pH was 7.0, specific gravity 1.009, protein 100, glucose negative, ketones negative, small blood, nitrite negative, bilirubin negative, urobilinogen 0.2 to 1.0. Leukocyte esterase large, 42 rbc's, many wbc's with clumps, and 1735 wbc's with occasional bacteria per high power field and rare yeast. Urine C and S was also positive for yeast. His total PSA done on 09/05/2017 was 8.5 and FREE PSA was 44%. This can be observed at this time for this elderly 82-year-old male with f/u psas Q 6 months. ASSESSMENT AND PLAN: We can treat the patient with Diflucan 1.5 mg daily for three days for treatment of his urinary tract yeast infection. Shamar Boss MD MTDD
[2017-09-07] MEDS: Latanoprost 0.005% Opht SOUTION OU SCH (21:43)
[2017-09-08] MEDS: Albuterol-Ipratrop 3 mg / 0.5 (3 ml) UD INH SCH ×4 (08:40→19:44)
[2017-09-08] MEDS: Hydrophor Oint TOP SCH ×3 (09:04→17:06)
[2017-09-08] MEDS: Fluticasone-Salmeterol 250-50mcg Diskus IH SCH ×2 (09:04→21:42)
[2017-09-08] MEDS: Lactulose 10 gm/15 ml Syrup PO SCH (09:05)
[2017-09-08] MEDS: Psyllium Packet PO SCH (09:05)
[2017-09-08] MEDS: Insulin Lispro Mix 75/25 100 units/ml (HumaLog) 10ml SC SCH ×2 (09:05→17:06)
[2017-09-08] MEDS: Fluconazole 150 MG TAB PO SCH (09:05)
[2017-09-08] MEDS: Lactobacillus Acidophilus 500 MU Cap PO SCH ×2 (09:06→17:05)
[2017-09-08] MEDS: Multivitamin With Minerals Tab PO SCH (09:06)
[2017-09-08] MEDS: Cholecalciferol 1,000 INTLU TAB PO SCH (13:14)
--- NOTE | 2017-09-08 20:50 | PN ---
DATE: 09/08/2017 FOLLOWUP NOTE TIME OF FOLLOWUP: Roughly 3:15 p.m. SUBJECTIVE: The patient is resting comfortably with his Johnson catheter draining filomena urine well. He is tolerating Diflucan well for treatment of his yeast UTI. He is ambulating very minimally with assistance at this time. DIAGNOSTIC IMPRESSION: For this patient is urinary retention, benign prostatic hypertrophy, and renal insufficiency. His creatinine is 1.8 and his glomerular filtration rate is 36 indicating chronic kidney disease stage 3, and his random glucose is 191. PLAN: For this patient will be to give the patient a voiding trial on 09/11/2017. Shamar Boss MD
[2017-09-08] MEDS: Latanoprost 0.005% Opht SOUTION OU SCH (21:42)
[2017-09-09] MEDS: Albuterol-Ipratrop 3 mg / 0.5 (3 ml) UD INH SCH ×4 (07:11→19:37)
[2017-09-09] MEDS: Fluticasone-Salmeterol 250-50mcg Diskus IH SCH ×2 (08:40→21:50)
[2017-09-09] MEDS: Fluconazole 150 MG TAB PO SCH (08:47)
[2017-09-09] MEDS: Lactulose 10 gm/15 ml Syrup PO SCH (08:48)
[2017-09-09] MEDS: Insulin Lispro Mix 75/25 100 units/ml (HumaLog) 10ml SC SCH ×2 (08:49→17:12)
[2017-09-09] MEDS: Psyllium Packet PO SCH (08:49)
[2017-09-09] MEDS: Lidocaine 2% GEL TOP PRN (08:50)
[2017-09-09] MEDS: Cholecalciferol 1,000 INTLU TAB PO SCH (08:51)
[2017-09-09] MEDS: Multivitamin With Minerals Tab PO SCH (08:51)
--- NOTE | 2017-09-09 10:32 | CP.PCM.PN ---
Subjective - Date & Time of Evaluation Date of Evaluation: 09/09/17 Time of Evaluation: 10:30 - Subjective Subjective: Mr. Fred Banegas was seen and examined during therapy session. His speech continuously improving including the movement of his tongue. He is able to verbalize several american words and able to state words even in Nepalese. He participates in a pleasant conversation. He is able to follow some commands and able to participate during the family training in preparation for home discharge. He remains with right facial droop, right side weakness. There was no untoward events overnight. Objective - Vital Signs/Intake and Output Vital Signs (last 24 hours): Temp Pulse Resp BP Pulse Ox 97.5 F L 67 20 143/62 96 09/09/17 10:00 09/09/17 10:00 09/09/17 10:00 09/09/17 10:00 09/09/17 10:00 Intake and Output: 09/09/17 09/09/17 06:59 18:59 Intake Total 240 Output Total 1200 Balance -960 - Medications Medications: Current Medications Acetaminophen (Tylenol 325mg Tab) 650 mg PO Q6 PRN PRN Reason: PAIN SCALE 1-10. Last Admin: 09/09/17 00:30 Dose: 650 mg Albuterol Sulfate (Albuterol 0.083% Inhal Bere (2.5 Mg/3 Ml) Ud) 2.5 mg IH Q6 PRN PRN Reason: Shortness of Breath Last Admin: 08/23/17 03:38 Dose: 2.5 mg Albuterol/Ipratropium (Duoneb 3 Mg/0.5 Mg (3 Ml) Ud) 3 ml INH RQID [facility] Last Admin: 09/09/17 07:11 Dose: 3 ml Amlodipine Besylate (Norvasc) 10 mg PO DAILY [facility] Last Admin: 09/09/17 08:51 Dose: 10 mg Aspirin (Aspirin Chewable) 81 mg PO DAILY [facility] Last Admin: 09/09/17 08:40 Dose: 81 mg Atorvastatin Calcium (Lipitor) 40 mg PO HS [facility] Last Admin: 09/08/17 21:46 Dose: 40 mg Carvedilol (Coreg) 25 mg PO Q12 [facility] Last Admin: 09/09/17 08:41 Dose: 25 mg Cholecalciferol (Vitamin D) 2,000 intlu PO DAILY [facility] Last Admin: 09/09/17 08:51 Dose: 2,000 intlu Clopidogrel Bisulfate (Plavix) 75 mg PO DAILY [facility] Last Admin: 09/09/17 08:51 Dose: 75 mg Clotrimazole (Lotrimin 1% Cream) 1 applic TOP BID [facility] Last Admin: 09/09/17 08:52 Dose: 1 applic Dextrose (Dextrose 50% Inj) 0 ml IV STAT PRN; Protocol PRN Reason: Hypoglycemia Protocol Dextrose (Glutose 15) 0 gm PO ONCE PRN; Protocol PRN Reason: Hypoglycemia Protocol Dextrose (Dextrose 50% Inj) 0 ml IV STAT PRN; Protocol PRN Reason: Hypoglycemia Protocol Dextrose (Glutose 15) 0 gm PO ONCE PRN; Protocol PRN Reason: Hypoglycemia Protocol Famotidine (Pepcid) 20 mg PO DAILY [facility] Last Admin: 09/09/17 08:51 Dose: 20 mg Ferrous Sulfate (Feosol) 325 mg PO TID [facility] Last Admin: 09/09/17 08:48 Dose: 325 mg Finasteride (Proscar) 5 mg PO DAILY [facility] Last Admin: 09/09/17 08:51 Dose: 5 mg Fluconazole (Diflucan) 150 mg PO DAILY [facility] PRN Reason: Protocol Stop: 09/10/17 17:01 Last Admin: 09/09/17 08:47 Dose: 150 mg Furosemide (Lasix) 40 mg PO DAILY [facility] Last Admin: 09/08/17 09:08 Dose: 40 mg Glucagon (Glucagen Diagnostic Kit) 0 mg IM STAT PRN; Protocol PRN Reason: Hypoglycemia Protocol Glucagon (Glucagen Diagnostic Kit) 0 mg IM STAT PRN; Protocol PRN Reason: Hypoglycemia Protocol Heparin Sodium (Porcine) (Heparin) 5,000 units SC Q8 [facility] PRN Reason: Protocol Last Admin: 09/09/17 07:10 Dose: 5,000 units Insulin Lispro Protam/Lispro Human (Humalog Mix 75/25) 12 units SC BID [facility] Last Admin: 09/09/17 08:49 Dose: 12 units Lactulose (Enulose) 10 gm PO DAILY [facility] Last Admin: 09/09/17 08:48 Dose: 10 gm Latanoprost (Xalatan Opht) 1 drop OU HS [facility] Last Admin: 09/08/17 21:42 Dose: 1 drop Lidocaine HCl (Xylocaine 2%) 1 applic TOP ONCE PRN PRN Reason: Pain, moderate (4-7) Last Admin: 09/09/17 08:50 Dose: 1 applic Lisinopril (Zestril) 20 mg PO DAILY [facility] Last Admin: 09/09/17 08:52 Dose: 20 mg Multi-Ingredient Ointment (Hydrophor Oint) 1 applic TOP TID [facility] Last Admin: 09/08/17 17:06 Dose: 1 applic Multivitamins/Minerals (Therapeutic-M Tab) 1 tab PO DAILY [facility] Last Admin: 09/09/17 08:51 Dose: 1 tab Mupirocin (Bactroban Ointment) 1 applic TOP BID [facility] Last Admin: 09/09/17 08:40 Dose: 1 applic Ondansetron HCl (Zofran Inj) 4 mg IVP Q6 PRN PRN Reason: Nausea/Vomiting Last Admin: 08/22/17 05:54 Dose: 4 mg Psyllium Hydrophilic Mucilloid (Hydrocil Instant) 1 pkt PO DAILY [facility] Last Admin: 09/09/17 08:49 Dose: 1 pkt Fluticasone/Salmeterol (Advair Diskus 250/50) 1 puff IH Q12 [facility] Last Admin: 09/09/17 08:40 Dose: 1 puff Sennosides (Senokot Tab) 17.2 mg PO [facility] Last Admin: 09/08/17 21:47 Dose: 17.2 mg Tamsulosin HCl (Flomax) 0.8 mg PO [facility] Last Admin: 09/08/17 21:47 Dose: 0.8 mg - Labs Labs: 09/06/17 05:15 09/06/17 05:15 PT 12.6 Seconds (9.8-13.1) 09/06/17 05:15 INR 1.1 (0.9-1.2) 09/06/17 05:15 - Constitutional Appears: No Acute Distress - Head Exam Head Exam: NORMAL INSPECTION - Eye Exam Pupil Exam: PERRL - Neurological Exam Neurological Exam: Alert, Awake Neuro motor strength exam: Left Upper Extremity: 5, Right Upper Extremity: 3, Left Lower Extremity: 5, Right Lower Extremity: 3 Additional comments: neurological unchanged from previous examination. Assessment and Plan (1) Ischemic stroke Assessment & Plan: Case discussed with Dr. Vaughn, continue all current medical, physical, and occupational therapies. Recommend Blood pressure and glycemic control, hydration , Keep head of bed elevated at least 30 degrees angle when in bed, follow up with a neurologist in 2 weeks after discharge. If the patient would like to follow up with Dr. Thomas/ Roderick at [address] [place] [address], tel. [phone]. Status: Acute
[2017-09-09] MEDS: Hydrophor Oint TOP SCH ×3 (10:42→17:12)
--- NOTE | 2017-09-09 13:38 | CP.PCM.PN ---
Subjective - Date & Time of Evaluation Date of Evaluation: 09/09/17 Time of Evaluation: 08:45 - Subjective Subjective: Patient seen and examined today sitting in chair, patient seen having breafast, NAD, patient denies chest pain, SOB, N/V/D, abdominal pain. Objective - Vital Signs/Intake and Output Vital Signs (last 24 hours): Temp Pulse Resp BP Pulse Ox 97.5 F L 67 20 143/62 96 09/09/17 10:00 09/09/17 10:00 09/09/17 10:00 09/09/17 10:43 09/09/17 10:00 Intake and Output: 09/09/17 09/09/17 06:59 18:59 Intake Total 240 Output Total 1200 Balance -960 - Medications Medications: Current Medications Acetaminophen (Tylenol 325mg Tab) 650 mg PO Q6 PRN PRN Reason: PAIN SCALE 1-10. Last Admin: 09/09/17 00:30 Dose: 650 mg Albuterol Sulfate (Albuterol 0.083% Inhal Bere (2.5 Mg/3 Ml) Ud) 2.5 mg IH Q6 PRN PRN Reason: Shortness of Breath Last Admin: 08/23/17 03:38 Dose: 2.5 mg Albuterol/Ipratropium (Duoneb 3 Mg/0.5 Mg (3 Ml) Ud) 3 ml INH RQID [facility] Last Admin: 09/09/17 11:46 Dose: 3 ml Amlodipine Besylate (Norvasc) 10 mg PO DAILY [facility] Last Admin: 09/09/17 08:51 Dose: 10 mg Aspirin (Aspirin Chewable) 81 mg PO DAILY [facility] Last Admin: 09/09/17 08:40 Dose: 81 mg Atorvastatin Calcium (Lipitor) 40 mg PO HS [facility] Last Admin: 09/08/17 21:46 Dose: 40 mg Carvedilol (Coreg) 25 mg PO Q12 [facility] Last Admin: 09/09/17 08:41 Dose: 25 mg Cholecalciferol (Vitamin D) 2,000 intlu PO DAILY [facility] Last Admin: 09/09/17 08:51 Dose: 2,000 intlu Clopidogrel Bisulfate (Plavix) 75 mg PO DAILY [facility] Last Admin: 09/09/17 08:51 Dose: 75 mg Clotrimazole (Lotrimin 1% Cream) 1 applic TOP BID [facility] Last Admin: 09/09/17 08:52 Dose: 1 applic Dextrose (Dextrose 50% Inj) 0 ml IV STAT PRN; Protocol PRN Reason: Hypoglycemia Protocol Dextrose (Glutose 15) 0 gm PO ONCE PRN; Protocol PRN Reason: Hypoglycemia Protocol Dextrose (Dextrose 50% Inj) 0 ml IV STAT PRN; Protocol PRN Reason: Hypoglycemia Protocol Dextrose (Glutose 15) 0 gm PO ONCE PRN; Protocol PRN Reason: Hypoglycemia Protocol Famotidine (Pepcid) 20 mg PO DAILY [facility] Last Admin: 09/09/17 08:51 Dose: 20 mg Ferrous Sulfate (Feosol) 325 mg PO TID [facility] Last Admin: 09/09/17 12:13 Dose: 325 mg Finasteride (Proscar) 5 mg PO DAILY [facility] Last Admin: 09/09/17 08:51 Dose: 5 mg Fluconazole (Diflucan) 150 mg PO DAILY [facility] PRN Reason: Protocol Stop: 09/10/17 17:01 Last Admin: 09/09/17 08:47 Dose: 150 mg Furosemide (Lasix) 40 mg PO DAILY [facility] Last Admin: 09/09/17 10:43 Dose: 40 mg Glucagon (Glucagen Diagnostic Kit) 0 mg IM STAT PRN; Protocol PRN Reason: Hypoglycemia Protocol Glucagon (Glucagen Diagnostic Kit) 0 mg IM STAT PRN; Protocol PRN Reason: Hypoglycemia Protocol Heparin Sodium (Porcine) (Heparin) 5,000 units SC Q8 [facility] PRN Reason: Protocol Last Admin: 09/09/17 07:10 Dose: 5,000 units Insulin Lispro Protam/Lispro Human (Humalog Mix 75/25) 12 units SC BID [facility] Last Admin: 09/09/17 08:49 Dose: 12 units Lactulose (Enulose) 10 gm PO DAILY [facility] Last Admin: 09/09/17 08:48 Dose: 10 gm Latanoprost (Xalatan Opht) 1 drop OU HS [facility] Last Admin: 09/08/17 21:42 Dose: 1 drop Lidocaine HCl (Xylocaine 2%) 1 applic TOP ONCE PRN PRN Reason: Pain, moderate (4-7) Last Admin: 09/09/17 08:50 Dose: 1 applic Lisinopril (Zestril) 20 mg PO DAILY [facility] Last Admin: 09/09/17 08:52 Dose: 20 mg Multi-Ingredient Ointment (Hydrophor Oint) 1 applic TOP TID [facility] Last Admin: 09/09/17 12:12 Dose: 1 applic Multivitamins/Minerals (Therapeutic-M Tab) 1 tab PO DAILY [facility] Last Admin: 09/09/17 08:51 Dose: 1 tab Mupirocin (Bactroban Ointment) 1 applic TOP BID [facility] Last Admin: 09/09/17 08:40 Dose: 1 applic Ondansetron HCl (Zofran Inj) 4 mg IVP Q6 PRN PRN Reason: Nausea/Vomiting Last Admin: 08/22/17 05:54 Dose: 4 mg Psyllium Hydrophilic Mucilloid (Hydrocil Instant) 1 pkt PO DAILY [facility] Last Admin: 09/09/17 08:49 Dose: 1 pkt Fluticasone/Salmeterol (Advair Diskus 250/50) 1 puff IH Q12 [facility] Last Admin: 09/09/17 08:40 Dose: 1 puff Sennosides (Senokot Tab) 17.2 mg PO [facility] Last Admin: 09/08/17 21:47 Dose: 17.2 mg Tamsulosin HCl (Flomax) 0.8 mg PO [facility] Last Admin: 09/08/17 21:47 Dose: 0.8 mg - Labs Labs: 09/06/17 05:15 09/06/17 05:15 PT 12.6 Seconds (9.8-13.1) 09/06/17 05:15 INR 1.1 (0.9-1.2) 09/06/17 05:15 - Constitutional Appears: No Acute Distress - Head Exam Head Exam: ATRAUMATIC, NORMOCEPHALIC Additional comments: Right facial droop noted - Eye Exam Eye Exam: PERRL Additional comments: LEft eye blind - ENT Exam ENT Exam: Mucous Membranes Moist - Neck Exam Neck Exam: Normal Inspection - Respiratory Exam Respiratory Exam: Clear to Ausculation Bilateral. absent: Rales, Rhonchi, Wheezes - Cardiovascular Exam Cardiovascular Exam: REGULAR RHYTHM, +S1, +S2. absent: JVD - GI/Abdominal Exam GI & Abdominal Exam: Soft, Normal Bowel Sounds - Exam Additional comments: HOLLIS cath in place - Extremities Exam Extremities Exam: absent: Pedal Edema - Neurological Exam Neurological Exam: Alert, Awake, Oriented x3 Neuro motor strength exam: Left Upper Extremity: 5, Right Upper Extremity: 3, Left Lower Extremity: 5, Right Lower Extremity: 3 - Psychiatric Exam Psychiatric exam: Normal Affect, Normal Mood - Skin Skin Exam: Normal Color, Warm Assessment and Plan - Assessment and Plan (Free Text) Assessment: 82 year old male with PMHx of multiple comorbidities, CVA/TIA, left eye blindness, diabetic retinopathy, stroke x 2, CAD s/p 4 stents, was admitted to rehab for therapy after stroke 08/13/17. Patient has a hollis cath in place with plan to do a second voiding trial tomorrow 09/10/17 as per urology recms. Plan: L temporal/occipital junction Stroke (08/12) and acute stroke L frontal lobe () -stable, patient progressing in functionality with PT. -Neuro consult on board. -c/w Aspirin and Plavix -PT/OT Urinary retention - possibly caused by acute stroke added to baseline BPH - c/w flomax 0.8mg po qd - c/w Finasteride 5 mg po qd - hollis cath in place - voiding trial 09/10/17 - consult urology on board DM2 on insulin -diet regimen for DM -humalog 75/25 to 12 units BID -w/f BS HTN -controlled at this point -C/w Lisinopril 10daily, 10mg Norvasc, Carvedilol 25mg BID, lasix 40 po QD Normocytic Anemia -stable -c/w Iron PO -FOBT +, has ext hemorrhoids -GI consulted; no acute intervention -c/w Famotidine Constipation - resolved -bowel regimen Low vitamin D -Vit D level -c/w 2000mg vit D daily CAD s/p stent x 4 -EKG: Sinus bradycardia with occasional premature ventricular complexes, Left ventricular hypertrophy with repolarization abnormality -echo normal LV, EF 55-60% -c/w Coreg, Statin, ASA and plavix History of Diastolic HF -Last ECHO from 11/2013 --> Normal LV syst function; Concentric LVH; Impaired Diastolic function -echo normal LV, EF 55-60% -Continue Lipitor 40 mg, ASA 81mg -Outpatient Cardiology is Dr. Carlos Prophylaxis -DVT ppx c/w heparin Q 8h sc 5000 units
--- NOTE | 2017-09-09 16:34 | CP.PCM.PN ---
Subjective - Date & Time of Evaluation Date of Evaluation: 09/09/17 Time of Evaluation: 16:33 - Subjective Subjective: Patient seen in the room not much change at this point he is limited in function I have evaluated Israel Banegas (Date of : 35) on 09/09/17. Due to patient's acute stroke with right hemiplegia, chronic obstructive pulmonary disease, and diastolic congestive heart failure, patient requires a semi- electric hospital bed. Patient requires the head of the bed to be elevated more than 30 degrees most of the time. Furthermore, patient requires positioning of the body in ways not feasible with an ordinary bed in order to alleviate pain due to urinary retention as a result of acute stroke. I have also evaluated Israel Banegas (Date of : 35) on 09/09/17 for his mobility limitation due to acute stroke with right hemiplegia, chronic obstructive disease, and diastolic congestive heart failure that significantly impairs ability to participate in one or more mobility-related activities of daily living (MRADL's) including toileting, dressing, grooming, and bathing in customary locations in the home. The beneficiary's mobility limitation cannot be sufficiently resolved by the use of an appropriately fitted cane or walker since the patient is not able to ambulate. Mr. Bibi Banegas's home provides adequate access between rooms, maneuvering space, and surfaces for use of the light weight rickie height wheelchair provided. Patient requires anti-tippers, seat belt, full length arm rests, elevating leg rests, and standard cushion for the seat to prevent skin breakdown which patient is high risk for due to limited mobility from acute stroke. He has the sufficient upper body strength to propel a wheelchair. Patient requires a lower seat height of 17" because of short stature and need to place feet on ground. Use of wheelchair will significantly improve the beneficiary's ability to participate in MRADL's and he will use it on a regular basis in the home. Mr. Fred Banegas has expressed a willingness and ability to use the wheelchair that is provided in the home. Objective - Vital Signs/Intake and Output Vital Signs (last 24 hours): Temp Pulse Resp BP Pulse Ox 97.5 F L 67 20 143/62 96 09/09/17 10:00 09/09/17 10:00 09/09/17 10:00 09/09/17 13:35 09/09/17 10:00 Intake and Output: 09/09/17 09/09/17 06:59 18:59 Intake Total 240 Output Total 1200 Balance -960 - Medications Medications: Current Medications Acetaminophen (Tylenol 325mg Tab) 650 mg PO Q6 PRN PRN Reason: PAIN SCALE 1-10. Last Admin: 09/09/17 00:30 Dose: 650 mg Albuterol Sulfate (Albuterol 0.083% Inhal Bere (2.5 Mg/3 Ml) Ud) 2.5 mg IH Q6 PRN PRN Reason: Shortness of Breath Last Admin: 08/23/17 03:38 Dose: 2.5 mg Albuterol/Ipratropium (Duoneb 3 Mg/0.5 Mg (3 Ml) Ud) 3 ml INH RQID [facility] Last Admin: 09/09/17 15:30 Dose: 3 ml Amlodipine Besylate (Norvasc) 10 mg PO DAILY [facility] Last Admin: 09/09/17 08:51 Dose: 10 mg Aspirin (Aspirin Chewable) 81 mg PO DAILY [facility] Last Admin: 09/09/17 08:40 Dose: 81 mg Atorvastatin Calcium (Lipitor) 40 mg PO HS [facility] Last Admin: 09/08/17 21:46 Dose: 40 mg Carvedilol (Coreg) 25 mg PO Q12 [facility] Last Admin: 09/09/17 08:41 Dose: 25 mg Cholecalciferol (Vitamin D) 2,000 intlu PO DAILY [facility] Last Admin: 09/09/17 08:51 Dose: 2,000 intlu Clopidogrel Bisulfate (Plavix) 75 mg PO DAILY [facility] Last Admin: 09/09/17 08:51 Dose: 75 mg Clotrimazole (Lotrimin 1% Cream) 1 applic TOP BID [facility] Last Admin: 09/09/17 08:52 Dose: 1 applic Dextrose (Dextrose 50% Inj) 0 ml IV STAT PRN; Protocol PRN Reason: Hypoglycemia Protocol Dextrose (Glutose 15) 0 gm PO ONCE PRN; Protocol PRN Reason: Hypoglycemia Protocol Dextrose (Dextrose 50% Inj) 0 ml IV STAT PRN; Protocol PRN Reason: Hypoglycemia Protocol Dextrose (Glutose 15) 0 gm PO ONCE PRN; Protocol PRN Reason: Hypoglycemia Protocol Famotidine (Pepcid) 20 mg PO DAILY [facility] Last Admin: 09/09/17 08:51 Dose: 20 mg Ferrous Sulfate (Feosol) 325 mg PO TID [facility] Last Admin: 09/09/17 12:13 Dose: 325 mg Finasteride (Proscar) 5 mg PO DAILY [facility] Last Admin: 09/09/17 08:51 Dose: 5 mg Fluconazole (Diflucan) 150 mg PO DAILY [facility] PRN Reason: Protocol Stop: 09/10/17 17:01 Last Admin: 09/09/17 08:47 Dose: 150 mg Furosemide (Lasix) 40 mg PO DAILY [facility] Last Admin: 09/09/17 10:43 Dose: 40 mg Glucagon (Glucagen Diagnostic Kit) 0 mg IM STAT PRN; Protocol PRN Reason: Hypoglycemia Protocol Glucagon (Glucagen Diagnostic Kit) 0 mg IM STAT PRN; Protocol PRN Reason: Hypoglycemia Protocol Heparin Sodium (Porcine) (Heparin) 5,000 units SC Q8 TREY PRN Reason: Protocol Last Admin: 09/09/17 14:41 Dose: 5,000 units Insulin Lispro Protam/Lispro Human (Humalog Mix 75/25) 12 units SC BID [facility] Last Admin: 09/09/17 08:49 Dose: 12 units Lactulose (Enulose) 10 gm PO DAILY [facility] Last Admin: 09/09/17 08:48 Dose: 10 gm Latanoprost (Xalatan Opht) 1 drop OU HS [facility] Last Admin: 09/08/17 21:42 Dose: 1 drop Lidocaine HCl (Xylocaine 2%) 1 applic TOP ONCE PRN PRN Reason: Pain, moderate (4-7) Last Admin: 09/09/17 08:50 Dose: 1 applic Lisinopril (Zestril) 20 mg PO DAILY [facility] Last Admin: 09/09/17 08:52 Dose: 20 mg Multi-Ingredient Ointment (Hydrophor Oint) 1 applic TOP TID [facility] Last Admin: 09/09/17 12:12 Dose: 1 applic Multivitamins/Minerals (Therapeutic-M Tab) 1 tab PO DAILY [facility] Last Admin: 09/09/17 08:51 Dose: 1 tab Mupirocin (Bactroban Ointment) 1 applic TOP BID [facility] Last Admin: 09/09/17 08:40 Dose: 1 applic Ondansetron HCl (Zofran Inj) 4 mg IVP Q6 PRN PRN Reason: Nausea/Vomiting Last Admin: 08/22/17 05:54 Dose: 4 mg Psyllium Hydrophilic Mucilloid (Hydrocil Instant) 1 pkt PO DAILY [facility] Last Admin: 09/09/17 08:49 Dose: 1 pkt Fluticasone/Salmeterol (Advair Diskus 250/50) 1 puff IH Q12 [facility] Last Admin: 09/09/17 08:40 Dose: 1 puff Sennosides (Senokot Tab) 17.2 mg PO HS [facility] Last Admin: 09/08/17 21:47 Dose: 17.2 mg Tamsulosin HCl (Flomax) 0.8 mg PO HS [facility] Last Admin: 09/08/17 21:47 Dose: 0.8 mg - Labs Labs: 09/06/17 05:15 09/06/17 05:15 PT 12.6 Seconds (9.8-13.1) 09/06/17 05:15 INR 1.1 (0.9-1.2) 09/06/17 05:15
[2017-09-09] MEDS: Latanoprost 0.005% Opht SOUTION OU SCH (21:53)
[2017-09-10 07:10] LABS: URINE BILIRUBIN NEGATIVE (NEGATIVE); URINE BLOOD NEGATIVE (NEGATIVE); URINE CLARITY CLEAR (Clear); URINE GLUCOSE (UA) NEG (Normal); URINE LEUKOCYTE ESTERASE TRACE Leu/uL (Negative); URINE PROTEIN 100 mg/dL (NEGATIVE); URINE UROBILINOGEN 0.2-1.0 mg/dL (0.2-1.0)
[2017-09-10] MEDS: Albuterol-Ipratrop 3 mg / 0.5 (3 ml) UD INH SCH ×4 (07:15→19:41)
[2017-09-10 07:44] LABS: URINE COLOR LIGHT YELLOW (YELLOW)
[2017-09-10] MEDS: Fluticasone-Salmeterol 250-50mcg Diskus IH SCH ×2 (08:31→21:44)
[2017-09-10] MEDS: Hydrophor Oint TOP SCH ×3 (08:32→17:21)
[2017-09-10] MEDS: Cholecalciferol 1,000 INTLU TAB PO SCH (08:33)
[2017-09-10] MEDS: Psyllium Packet PO SCH (08:34)
[2017-09-10] MEDS: Multivitamin With Minerals Tab PO SCH (08:34)
[2017-09-10] MEDS: Fluconazole 150 MG TAB PO SCH (08:37)
[2017-09-10] MEDS: Insulin Lispro Mix 75/25 100 units/ml (HumaLog) 10ml SC SCH ×2 (08:37→17:00)
[2017-09-10] MEDS: Lactulose 10 gm/15 ml Syrup PO SCH (10:28)
--- NOTE | 2017-09-10 13:18 | PSY.TMCNF ---
Nursing - Vital Signs Vital Signs (Last 8 hours): Vital Signs 09/10/17 09/10/17 09/10/17 07:30 08:31 08:34 Temperature 97.5 F L Pulse Rate 61 61 Respiratory 18 Rate Blood Pressure 139/69 139/69 139/69 O2 Sat by Pulse 100 Oximetry 09/10/17 09/10/17 08:36 08:42 Temperature Pulse Rate 61 61 Respiratory Rate Blood Pressure 139/69 139/69 O2 Sat by Pulse Oximetry Pain: 0 - Precautions: Precautions: Fall Prevention, Aspiration, Cardiac/Pulmonary, Seizure - Medications/Other Issues Comment: Pt at moderate nutritional risk. goals: 1. Pt to consume 75-100% of meals (not met, continue). 2. Blood glucoses to be between 70-180 mg/dl ( partially met, continue). Follow-up due on 09/09/2017 - Consults Comment: DR Carty,DR Arredondo,DR Thomas,Dr Soco Buck - Wound Left Arm Wound Type: Skin Tear Periwound: Intact Wound Dressing Status: Dry & Intact - Toileting Toileting: Dependent - Bladder Management Voiding Method: Urinal - Bowel Management Bowel Pattern: Incontinent - Transfers Transfers: Maximal Assistance - ADL's ADL's: Moderate Assistance - Pain Management Comments: denies any pain - Patient/Family Teaching Comments: N/A - Goals/Time Frame Comments: Pt was seen sitting up in bed with his eyes opened at times. As per TRUCK MECHANIC APPRENTICE, pt presents with severe expressive aphasia and required to be asked one question at a time. Pt's yes/no presented unreliable. Pt shook head yes to television and listening to music. Will speak with family to determine pt's leisure interests. Physical Therapy - Bed Mobility Bed Mobility: Verbal Cues, Minimal Assistance, Moderate Assistance Comment: fluctuating assistance. -uses functionalities of hospital bed to facilitate safety - Transfers Wheelchair to Mat: Verbal Cues, Minimal Assistance, Maximum Assistance Sit to Stand: Verbal Cues, Minimal Assistance, Moderate Assistance Comment: fluctuating assistance - Ambulation Level of Assistance: Not Tested Distance (ft.): 10 Comment: -can ambulate with maximal assisatnce but of late transition in POC to focus on transfesr and family training so gait training has been deferred - Stair Negotiation Stairs: Level of Assistance: Not Tested - Standing Balance Static Stand: Contact Guard Assist Dynamic Stand: Moderate Assistance, Maximal Assistance - Pain Pain (assessed during therapy session): 6 Management Techniques: Medication, Position Change, Distraction, Relaxation Techniques Comment: -intermittent at L knee. -intermittent at catheter insertion site - Insight/Carryover Insight/Carryover: Fair - Patient/Family Education Comment: -family training with grand-daughter Jenn, see daily treatment note from PT 09/09. -education on safety, mobility, therapy schedule, therapy goals, POC, recommended DME and recommendations for safe home discharge - Assessment/Plan Assessment: Israel Banegas presents with 1.) mild receptive/mild-moderate expressive aphasia characterized by difficulty answering more complex yes/no and wh- questions and following more complex directions, and mildly impaired word retrieval; 2.) moderate apraxia of speech characterized by impaired motor planning resulting in frequent phoneme errors negatively impacting intelligibility; 3.) moderate dysarthria characterized by impaired oral motor strength/ROM and rapid rate of speech with impaired articulatory precision negatively impacting speech intelligibility; and 4.) mild oral dysphagia characterized by prolonged mastication and A-P transit time; no overt s/s aspiration observed on PO trials tested. Recommend maintenance of finely chopped solids and thin liquids. Pt continues to demonstrate improved intelligibly in simple, structured tx tasks and intermittently with single words in spontaneous speech, though intelligibility of his connected speech remains impaired. He presents with good participation and motivation and would benefit from continued speech and dysphagia tx 3-5x/week. - Goals Timeframe: 7 days Goals: -family will reciprocally and safely demonstrate completion of bed/mat mobility, positioning in bed and WC and transfers with patient. -rolling with mod I. -supine to/from sit with CG. -sit to/from stand with CG. -SPT with SW with consistent min A. -gait x 50 feet with nbqc with mod A - Provider License Number: [id number] Occupational Therapy - Arousal/Attention/Orientation Patient Orientation: Person, Place, Time, Appropriate to Age, Appropriate to Situation - ADL/IADL Self Feeding: Supervision, Verbal Cues, Set-up Help Grooming: Set-up Help, Minimal Assistance Bathing-Upper Extremity: Verbal Cues, Set-up Help, Moderate Assistance Bathing-Lower Extremity: Verbal Cues, Set-up Help, Maximum Assistance Dressing-Upper Extremity: Verbal Cues, Set-up Help, Moderate Assistance Dressing-Lower Extremity: Verbal Cues, Set-up Help, Maximum Assistance - Sitting Balance Static Sitting: Supervision Dynamic Sitting: Minimal Assistance Comment: unsupported at edge of bed - Transfers Wheelchair to Bed Transfers: Verbal Cues, Set-up Help, Minimal Assistance, Moderate Assistance Toilet Transfers: Verbal Cues, Set-up Help, Minimal Assistance, Moderate Assistance - Wheelchair Management Level of Assistance: Maximum Assistance, Dependent - Upper Extremity Status Right Upper Extremity Comment: PROM IS WLS, Left Upper Extremity Comment: AROM is WFLS - Pain Pain (assessed during therapy session): 6 Alleviating Techniques: Medication, Position Change, Distraction, Relaxation Techniques Comment: -intermittent at L knee. -intermittent at catheter insertion site - Insight/Carryover Insight/Carryover: Fair - Patient/Family Education Comment: -family training with grand-daughter Jenn, see daily treatment note from PT 09/09. -education on safety, mobility, therapy schedule, therapy goals, POC, recommended DME and recommendations for safe home discharge - Assessment/Plan Assessment: Israel Banegas presents with 1.) mild receptive/mild-moderate expressive aphasia characterized by difficulty answering more complex yes/no and wh- questions and following more complex directions, and mildly impaired word retrieval; 2.) moderate apraxia of speech characterized by impaired motor planning resulting in frequent phoneme errors negatively impacting intelligibility; 3.) moderate dysarthria characterized by impaired oral motor strength/ROM and rapid rate of speech with impaired articulatory precision negatively impacting speech intelligibility; and 4.) mild oral dysphagia characterized by prolonged mastication and A-P transit time; no overt s/s aspiration observed on PO trials tested. Recommend maintenance of finely chopped solids and thin liquids. Pt continues to demonstrate improved intelligibly in simple, structured tx tasks and intermittently with single words in spontaneous speech, though intelligibility of his connected speech remains impaired. He presents with good participation and motivation and would benefit from continued speech and dysphagia tx 3-5x/week. - Goals Timeframe: 7 days Goals: -family will reciprocally and safely demonstrate completion of bed/mat mobility, positioning in bed and WC and transfers with patient. -rolling with mod I. -supine to/from sit with CG. -sit to/from stand with CG. -SPT with SW with consistent min A. -gait x 50 feet with nbqc with mod A - Provider Therapist: Brianna L. Bernal, OTR/L Speech Therapy - Consult Information Patient on Program: Yes Medical Diagnosis: CVA Treatment Diagnosis: -mild receptive/mild-moderate expressive aphasia. - moderate apraxia of speech. -moderate dysarthria. -mild oral dysphagia - Assessment Expressive Language Impairment: Moderate Receptive Language Impairment: Mild Speech/Articulation Impairment: Moderate Dysphagia/Swallowing Impairment: Mild - Plan Assessment: Israel Banegas presents with 1.) mild receptive/mild-moderate expressive aphasia characterized by difficulty answering more complex yes/no and wh- questions and following more complex directions, and mildly impaired word retrieval; 2.) moderate apraxia of speech characterized by impaired motor planning resulting in frequent phoneme errors negatively impacting intelligibility; 3.) moderate dysarthria characterized by impaired oral motor strength/ROM and rapid rate of speech with impaired articulatory precision negatively impacting speech intelligibility; and 4.) mild oral dysphagia characterized by prolonged mastication and A-P transit time; no overt s/s aspiration observed on PO trials tested. Recommend maintenance of finely chopped solids and thin liquids. Pt continues to demonstrate improved intelligibly in simple, structured tx tasks and intermittently with single words in spontaneous speech, though intelligibility of his connected speech remains impaired. He presents with good participation and motivation and would benefit from continued speech and dysphagia tx 3-5x/week. Plan: Continue Dysphagia Therapy, Continue Speech/Language Therapy Frequency: 3-5 times per week Duration: 1 week Goals/Timeframe: Please see progress note dated 09/09/17 for updated goals/POC Recommendations: -Continue speech and dysphagia tx 3-5x/week. -Maintain finely chopped solids/thin liquids - Provider Therapist: Natalie Burgos License Number: [id number] Recreational Therapy - Participation Participation: Participates in Individual and/or Group Sessions - Attendance Attendance: 3-5 times per week - Activities Leisure Activities: Cards and Games - Socialization Level of Socialization: Requires 1:1 guidance to respond, Minimal initiation of interaction to request basic needs, Minimal or no response - Diversional Time Diversional Time: television - Assessment Assessment/Plan: Israel Banegas presents with 1.) mild receptive/mild- moderate expressive aphasia characterized by difficulty answering more complex yes/no and wh- questions and following more complex directions, and mildly impaired word retrieval; 2.) moderate apraxia of speech characterized by impaired motor planning resulting in frequent phoneme errors negatively impacting intelligibility; 3.) moderate dysarthria characterized by impaired oral motor strength/ROM and rapid rate of speech with impaired articulatory precision negatively impacting speech intelligibility; and 4.) mild oral dysphagia characterized by prolonged mastication and A-P transit time; no overt s/s aspiration observed on PO trials tested. Recommend maintenance of finely chopped solids and thin liquids. Pt continues to demonstrate improved intelligibly in simple, structured tx tasks and intermittently with single words in spontaneous speech, though intelligibility of his connected speech remains impaired. He presents with good participation and motivation and would benefit from continued speech and dysphagia tx 3-5x/week. - Provider Therapist: Lety Amin, PREVENTION RN #[id number] Nutrition - Current Diet Current Diet/ Supplement/ Feedings: Heart healthy moderate consistent CHO Mech altered(finely chopped). Su[place] 8 ounces 1 per day - Appetite Percent Meal Consumed: 75-100% - Comments Comments: N/A - Assessment/Goals/Time Frame Assessment/Goals/Time Frame: Pt at moderate nutritional risk. goals: 1. Pt to consume 75-100% of meals (not met, continue). 2. Blood glucoses to be between 70-180 mg/dl (partially met, continue). Follow-up due on 09/09/2017 - Provider Provider: Amairani Alicea RD Case Management - Psychosocial Assessment Support Systems: Jenn Henriquez (granddaughter)- [phone], . Kavyageneva Ibarra (daughter)- [phone], . Ramila Philippe (daughter)- [phone] Psychological Interventions/Needs: Patient is alert with receptive and expressive aphasia Discharge Concerns: Patient currently requiring mod-max A for functional mobility, patient with incontinence and apashia Patient/Family Meeting: CM met with patient/family and rehab team via translation from certified Lao speaking mulcher operator Natalie Arango. Intervention/Goal/Outcome:: 1. Plan: Home with VNS and 24 hour care- CM spoke with family at length regarding team concerns and recommendations post discharge. Family expressed desire to have patient discharged home following rehab as patient is increasingly depressed and not happy being in the hospital. Family verbalized happiness with how patient has progressed since admission to acute rehab and states that patient is functionally better now than how he was at home. CM explained the disadvantages of having patient discharged home prematurely and limitations of homecare services and outpatient therapy, however , family verbalized understanding and continues to feel comfortable with recommendation of 24 hour care at home. CM to coordinate continuous caregiver training with family for days leading up to discharge date, family scheduled for cargiver training on Thurs and Fri / and 09/06 at 9:30am. Family also requesting outpatient PT/OT[facility]ST at [facility]- to schedule appts. Appropriate DME to be ordered (patient with RW at home, CM to order commode, tub transfer bench , hospital bed). Tentative discharge date: 09/12/2017. CM to also contact insurance to reassess for increased MOUNTER hours at home. - Discharge Plan Discharge Plan: Outpatient rehab - Provider Provider: HELEN Emerson, LEARNING STRATEGIST License Number: [id number] Rehabilitation Plan - Treatment Plan Treatment Plan: Physical Therapy, Occupational Therapy, Speech, Dietary, Patient /Family Education - Discharge Plan Estimated Date of Discharge: 09/12/17 Discharge to: Home
--- NOTE | 2017-09-10 13:41 | CP.PCM.PN ---
Subjective - Date & Time of Evaluation Date of Evaluation: 09/10/17 Time of Evaluation: 13:40 - Subjective Subjective: Patient seen in the room pleasant but at this point indifferent to the treatments and family is doing their own thing in family training as well set for d/c home 09/12/17 NAD no cyanosis or jaundice Objective - Vital Signs/Intake and Output Vital Signs (last 24 hours): Temp Pulse Resp BP Pulse Ox 97.5 F L 61 18 139/69 100 09/10/17 07:30 09/10/17 08:42 09/10/17 07:30 09/10/17 08:42 09/10/17 07:30 Intake and Output: 09/10/17 09/10/17 06:59 18:59 Intake Total 300 Output Total 1200 Balance -900 - Medications Medications: Current Medications Acetaminophen (Tylenol 325mg Tab) 650 mg PO Q6 PRN PRN Reason: PAIN SCALE 1-10. Last Admin: 09/09/17 00:30 Dose: 650 mg Albuterol Sulfate (Albuterol 0.083% Inhal Bere (2.5 Mg/3 Ml) Ud) 2.5 mg IH Q6 PRN PRN Reason: Shortness of Breath Last Admin: 08/23/17 03:38 Dose: 2.5 mg Albuterol/Ipratropium (Duoneb 3 Mg/0.5 Mg (3 Ml) Ud) 3 ml INH RQID [facility] Last Admin: 09/10/17 11:36 Dose: Not Given Amlodipine Besylate (Norvasc) 10 mg PO DAILY [facility] Last Admin: 09/10/17 08:42 Dose: 10 mg Aspirin (Aspirin Chewable) 81 mg PO DAILY [facility] Last Admin: 09/10/17 08:34 Dose: 81 mg Atorvastatin Calcium (Lipitor) 40 mg PO HS [facility] Last Admin: 09/09/17 21:52 Dose: 40 mg Carvedilol (Coreg) 25 mg PO Q12 [facility] Last Admin: 09/10/17 08:34 Dose: 25 mg Cholecalciferol (Vitamin D) 2,000 intlu PO DAILY [facility] Last Admin: 09/10/17 08:33 Dose: 2,000 intlu Clopidogrel Bisulfate (Plavix) 75 mg PO DAILY [facility] Last Admin: 09/10/17 08:36 Dose: 75 mg Clotrimazole (Lotrimin 1% Cream) 1 applic TOP BID [facility] Last Admin: 09/10/17 08:33 Dose: 1 applic Dextrose (Dextrose 50% Inj) 0 ml IV STAT PRN; Protocol PRN Reason: Hypoglycemia Protocol Dextrose (Glutose 15) 0 gm PO ONCE PRN; Protocol PRN Reason: Hypoglycemia Protocol Dextrose (Dextrose 50% Inj) 0 ml IV STAT PRN; Protocol PRN Reason: Hypoglycemia Protocol Dextrose (Glutose 15) 0 gm PO ONCE PRN; Protocol PRN Reason: Hypoglycemia Protocol Famotidine (Pepcid) 20 mg PO DAILY [facility] Last Admin: 09/10/17 08:33 Dose: 20 mg Ferrous Sulfate (Feosol) 325 mg PO TID [facility] Last Admin: 09/10/17 13:38 Dose: 325 mg Finasteride (Proscar) 5 mg PO DAILY [facility] Last Admin: 09/10/17 08:42 Dose: 5 mg Fluconazole (Diflucan) 150 mg PO DAILY [facility] PRN Reason: Protocol Stop: 09/10/17 17:01 Last Admin: 09/10/17 08:37 Dose: 150 mg Furosemide (Lasix) 40 mg PO DAILY [facility] Last Admin: 09/10/17 08:31 Dose: 40 mg Glucagon (Glucagen Diagnostic Kit) 0 mg IM STAT PRN; Protocol PRN Reason: Hypoglycemia Protocol Glucagon (Glucagen Diagnostic Kit) 0 mg IM STAT PRN; Protocol PRN Reason: Hypoglycemia Protocol Heparin Sodium (Porcine) (Heparin) 5,000 units SC Q8 [facility] PRN Reason: Protocol Last Admin: 09/10/17 13:28 Dose: 5,000 units Insulin Lispro Protam/Lispro Human (Humalog Mix 75/25) 12 units SC BID [facility] Last Admin: 09/10/17 08:37 Dose: 12 units Lactulose (Enulose) 10 gm PO DAILY [facility] Last Admin: 09/10/17 10:28 Dose: 10 gm Latanoprost (Xalatan Opht) 1 drop OU HS [facility] Last Admin: 09/09/17 21:53 Dose: 1 drop Lidocaine HCl (Xylocaine 2%) 1 applic TOP ONCE PRN PRN Reason: Pain, moderate (4-7) Last Admin: 09/09/17 08:50 Dose: 1 applic Lisinopril (Zestril) 20 mg PO DAILY [facility] Last Admin: 09/10/17 08:36 Dose: 20 mg Multi-Ingredient Ointment (Hydrophor Oint) 1 applic TOP TID [facility] Last Admin: 09/10/17 13:29 Dose: 1 applic Multivitamins/Minerals (Therapeutic-M Tab) 1 tab PO DAILY [facility] Last Admin: 09/10/17 08:34 Dose: 1 tab Mupirocin (Bactroban Ointment) 1 applic TOP BID [facility] Last Admin: 09/10/17 08:35 Dose: 1 applic Ondansetron HCl (Zofran Inj) 4 mg IVP Q6 PRN PRN Reason: Nausea/Vomiting Last Admin: 08/22/17 05:54 Dose: 4 mg Psyllium Hydrophilic Mucilloid (Hydrocil Instant) 1 pkt PO DAILY [facility] Last Admin: 09/10/17 08:34 Dose: 1 pkt Fluticasone/Salmeterol (Advair Diskus 250/50) 1 puff IH Q12 [facility] Last Admin: 09/10/17 08:31 Dose: 1 puff Sennosides (Senokot Tab) 17.2 mg PO HS [facility] Last Admin: 09/09/17 21:53 Dose: 17.2 mg Tamsulosin HCl (Flomax) 0.8 mg PO HS [facility] Last Admin: 09/09/17 21:51 Dose: 0.8 mg - Labs Labs: 09/06/17 05:15 09/06/17 05:15 PT 12.6 Seconds (9.8-13.1) 09/06/17 05:15 INR 1.1 (0.9-1.2) 09/06/17 05:15
[2017-09-10] MEDS: Latanoprost 0.005% Opht SOUTION OU SCH (21:47)
[2017-09-11] MEDS: Albuterol-Ipratrop 3 mg / 0.5 (3 ml) UD INH SCH ×4 (07:43→19:22)
[2017-09-11] MEDS: Fluticasone-Salmeterol 250-50mcg Diskus IH SCH ×2 (08:03→21:53)
[2017-09-11] MEDS: Multivitamin With Minerals Tab PO SCH (08:07)
[2017-09-11] MEDS: Insulin Lispro Mix 75/25 100 units/ml (HumaLog) 10ml SC SCH ×2 (08:08→17:16)
[2017-09-11] MEDS: Lactulose 10 gm/15 ml Syrup PO SCH (08:08)
[2017-09-11] MEDS: Psyllium Packet PO SCH (08:09)
[2017-09-11] MEDS: Cholecalciferol 1,000 INTLU TAB PO SCH (08:10)
[2017-09-11] MEDS: Hydrophor Oint TOP SCH ×3 (08:11→17:16)
--- NOTE | 2017-09-11 11:32 | CP.PCM.PN ---
Subjective - Date & Time of Evaluation Date of Evaluation: 09/11/17 Time of Evaluation: 08:10 - Subjective Subjective: Patient seen and examined today, patient seen having breakfast, NAD, patient denies chest pain, SOB, N/V/D, abdominal pain, spoke to nurse in room and patient was able to void early today. Objective - Vital Signs/Intake and Output Vital Signs (last 24 hours): Temp Pulse Resp BP Pulse Ox 97.5 F L 65 18 144/60 96 09/11/17 08:39 09/11/17 08:39 09/11/17 08:39 09/11/17 08:39 09/11/17 08:39 Intake and Output: 09/11/17 09/11/17 06:59 18:59 Intake Total 240 Output Total 700 Balance -460 - Medications Medications: Current Medications Acetaminophen (Tylenol 325mg Tab) 650 mg PO Q6 PRN PRN Reason: PAIN SCALE 1-10. Last Admin: 09/09/17 00:30 Dose: 650 mg Albuterol Sulfate (Albuterol 0.083% Inhal Bere (2.5 Mg/3 Ml) Ud) 2.5 mg IH Q6 PRN PRN Reason: Shortness of Breath Last Admin: 08/23/17 03:38 Dose: 2.5 mg Albuterol/Ipratropium (Duoneb 3 Mg/0.5 Mg (3 Ml) Ud) 3 ml INH RQID [facility] Last Admin: 09/11/17 07:43 Dose: 3 ml Amlodipine Besylate (Norvasc) 10 mg PO DAILY [facility] Last Admin: 09/11/17 08:09 Dose: 10 mg Aspirin (Aspirin Chewable) 81 mg PO DAILY [facility] Last Admin: 09/11/17 08:04 Dose: 81 mg Atorvastatin Calcium (Lipitor) 40 mg PO HS [facility] Last Admin: 09/10/17 22:23 Dose: 40 mg Carvedilol (Coreg) 25 mg PO Q12 [facility] Last Admin: 09/11/17 08:05 Dose: 25 mg Cholecalciferol (Vitamin D) 2,000 intlu PO DAILY [facility] Last Admin: 09/11/17 08:10 Dose: 2,000 intlu Clopidogrel Bisulfate (Plavix) 75 mg PO DAILY [facility] Last Admin: 09/11/17 08:05 Dose: 75 mg Clotrimazole (Lotrimin 1% Cream) 1 applic TOP BID [facility] Last Admin: 09/11/17 08:06 Dose: 1 applic Dextrose (Dextrose 50% Inj) 0 ml IV STAT PRN; Protocol PRN Reason: Hypoglycemia Protocol Dextrose (Glutose 15) 0 gm PO ONCE PRN; Protocol PRN Reason: Hypoglycemia Protocol Dextrose (Dextrose 50% Inj) 0 ml IV STAT PRN; Protocol PRN Reason: Hypoglycemia Protocol Dextrose (Glutose 15) 0 gm PO ONCE PRN; Protocol PRN Reason: Hypoglycemia Protocol Famotidine (Pepcid) 20 mg PO DAILY [facility] Last Admin: 09/11/17 08:05 Dose: 20 mg Ferrous Sulfate (Feosol) 325 mg PO TID [facility] Last Admin: 09/11/17 08:06 Dose: 325 mg Finasteride (Proscar) 5 mg PO DAILY [facility] Last Admin: 09/11/17 08:06 Dose: 5 mg Furosemide (Lasix) 40 mg PO DAILY [facility] Last Admin: 09/11/17 08:07 Dose: 40 mg Glucagon (Glucagen Diagnostic Kit) 0 mg IM STAT PRN; Protocol PRN Reason: Hypoglycemia Protocol Glucagon (Glucagen Diagnostic Kit) 0 mg IM STAT PRN; Protocol PRN Reason: Hypoglycemia Protocol Heparin Sodium (Porcine) (Heparin) 5,000 units SC Q8 [facility] PRN Reason: Protocol Last Admin: 09/11/17 06:06 Dose: 5,000 units Insulin Lispro Protam/Lispro Human (Humalog Mix 75/25) 12 units SC BID [facility] Last Admin: 09/11/17 08:08 Dose: 12 units Lactulose (Enulose) 10 gm PO DAILY [facility] Last Admin: 09/11/17 08:08 Dose: 10 gm Latanoprost (Xalatan Opht) 1 drop OU HS [facility] Last Admin: 09/10/17 21:47 Dose: 1 drop Lidocaine HCl (Xylocaine 2%) 1 applic TOP ONCE PRN PRN Reason: Pain, moderate (4-7) Last Admin: 09/09/17 08:50 Dose: 1 applic Lisinopril (Zestril) 20 mg PO DAILY [facility] Last Admin: 09/11/17 08:07 Dose: 20 mg Multi-Ingredient Ointment (Hydrophor Oint) 1 applic TOP TID [facility] Last Admin: 09/11/17 08:11 Dose: 1 applic Multivitamins/Minerals (Therapeutic-M Tab) 1 tab PO DAILY [facility] Last Admin: 09/11/17 08:07 Dose: 1 tab Mupirocin (Bactroban Ointment) 1 applic TOP BID [facility] Last Admin: 09/11/17 08:05 Dose: 1 applic Ondansetron HCl (Zofran Inj) 4 mg IVP Q6 PRN PRN Reason: Nausea/Vomiting Last Admin: 08/22/17 05:54 Dose: 4 mg Psyllium Hydrophilic Mucilloid (Hydrocil Instant) 1 pkt PO DAILY [facility] Last Admin: 09/11/17 08:09 Dose: 1 pkt Fluticasone/Salmeterol (Advair Diskus 250/50) 1 puff IH Q12 [facility] Last Admin: 09/11/17 08:03 Dose: 1 puff Sennosides (Senokot Tab) 17.2 mg PO HS [facility] Last Admin: 09/10/17 21:47 Dose: 17.2 mg Tamsulosin HCl (Flomax) 0.8 mg PO HS [facility] Last Admin: 09/10/17 21:45 Dose: 0.8 mg - Labs Labs: 09/06/17 05:15 09/06/17 05:15 PT 12.6 Seconds (9.8-13.1) 09/06/17 05:15 INR 1.1 (0.9-1.2) 09/06/17 05:15 - Constitutional Appears: No Acute Distress - Head Exam Head Exam: ATRAUMATIC - Eye Exam Eye Exam: PERRL - ENT Exam ENT Exam: Mucous Membranes Moist - Respiratory Exam Respiratory Exam: Clear to Ausculation Bilateral. absent: Rales, Rhonchi, Wheezes - Cardiovascular Exam Cardiovascular Exam: REGULAR RHYTHM, +S1, +S2 - GI/Abdominal Exam GI & Abdominal Exam: Soft, Normal Bowel Sounds - Extremities Exam Extremities Exam: absent: Pedal Edema - Neurological Exam Neurological Exam: Alert, Awake, Oriented x3 - Psychiatric Exam Psychiatric exam: Normal Affect, Normal Mood - Skin Skin Exam: Normal Color, Warm Assessment and Plan - Assessment and Plan (Free Text) Assessment: 82 year old male with PMHx of multiple comorbidities, CVA/TIA, left eye blindness, diabetic retinopathy, stroke x 2, CAD s/p 4 stents, was admitted to rehab for therapy after stroke 08/13/17. Plan: L temporal/occipital junction Stroke (6/11) and acute stroke L frontal lobe () -stable, patient progressing in functionality with PT. -Neuro consult on board. -c/w Aspirin and Plavix -PT/OT Urinary retention - possibly caused by acute stroke added to baseline BPH - c/w flomax 0.8mg po qd - c/w Finasteride 5 mg po qd - hollis cath removed - void today, will monitor - consult urology on board DM2 on insulin -diet regimen for DM -humalog 75/25 to 12 units BID -w/f BS HTN -controlled at this point -C/w Lisinopril 10daily, 10mg Norvasc, Carvedilol 25mg BID, lasix 40 po QD Normocytic Anemia -stable -c/w Iron PO -FOBT +, has ext hemorrhoids -GI consulted; no acute intervention -c/w Famotidine Constipation - resolved -bowel regimen Low vitamin D -Vit D level -c/w 2000mg vit D daily CAD s/p stent x 4 -EKG: Sinus bradycardia with occasional premature ventricular complexes, Left ventricular hypertrophy with repolarization abnormality -echo normal LV, EF 55-60% -c/w Coreg, Statin, ASA and plavix History of Diastolic HF -Last ECHO from 11/2013 --> Normal LV syst function; Concentric LVH; Impaired Diastolic function -echo normal LV, EF 55-60% -Continue Lipitor 40 mg, ASA 81mg -Outpatient Cardiology is Dr. Carlos Prophylaxis -DVT ppx c/w heparin Q 8h sc 5000 units
--- NOTE | 2017-09-11 15:37 | PN ---
DATE: 09/11/2017 FOLLOWUP NOTE TIME OF FOLLOWUP: 10:30 a.m. SUBJECTIVE: The patient is voiding filomena urine well, this morning he voided 350 mL of filomena urine. A postvoid bladder scan showed only 45 mL residual. PHYSICAL EXAMINATION: ABDOMEN: Soft, nondistended and nontender. No CVA tenderness. No suprapubic tenderness, and the patient is currently wheelchair-dependant. DIAGNOSTIC IMPRESSION: For this patient, 1. Acute urinary retention. 2. Benign prostatic hyperplasia status post stroke. PLAN: For this patient is to allow the patient to continue to void urine and check residual with bladder scans postvoid. Also get an SMA-7 in the morning to follow up his BUN, creatinine and GFR, make sure that these are stable without the Johnson catheter. Shamar Boss MD
--- NOTE | 2017-09-11 18:10 | CP.PCM.PN ---
Subjective - Date & Time of Evaluation Date of Evaluation: 09/11/17 Time of Evaluation: 12:10 - Subjective Subjective: Patient seen in the room, doing ok no pain no sob minimal gains at this point in therapies set for d/c home tomorrow family training has been provided Objective - Vital Signs/Intake and Output Vital Signs (last 24 hours): Temp Pulse Resp BP Pulse Ox 97.5 F L 65 18 144/60 96 09/11/17 08:39 09/11/17 08:39 09/11/17 08:39 09/11/17 08:39 09/11/17 08:39 Intake and Output: 09/11/17 09/11/17 06:59 18:59 Intake Total 240 Output Total 700 Balance -460 - Medications Medications: Current Medications Acetaminophen (Tylenol 325mg Tab) 650 mg PO Q6 PRN PRN Reason: PAIN SCALE 1-10. Last Admin: 09/09/17 00:30 Dose: 650 mg Albuterol Sulfate (Albuterol 0.083% Inhal Bere (2.5 Mg/3 Ml) Ud) 2.5 mg IH Q6 PRN PRN Reason: Shortness of Breath Last Admin: 08/23/17 03:38 Dose: 2.5 mg Albuterol/Ipratropium (Duoneb 3 Mg/0.5 Mg (3 Ml) Ud) 3 ml INH RQID [facility] Last Admin: 09/11/17 16:05 Dose: 3 ml Amlodipine Besylate (Norvasc) 10 mg PO DAILY [facility] Last Admin: 09/11/17 08:09 Dose: 10 mg Aspirin (Aspirin Chewable) 81 mg PO DAILY [facility] Last Admin: 09/11/17 08:04 Dose: 81 mg Atorvastatin Calcium (Lipitor) 40 mg PO HS [facility] Last Admin: 09/10/17 22:23 Dose: 40 mg Carvedilol (Coreg) 25 mg PO Q12 [facility] Last Admin: 09/11/17 08:05 Dose: 25 mg Cholecalciferol (Vitamin D) 2,000 intlu PO DAILY [facility] Last Admin: 09/11/17 08:10 Dose: 2,000 intlu Clopidogrel Bisulfate (Plavix) 75 mg PO DAILY [facility] Last Admin: 09/11/17 08:05 Dose: 75 mg Clotrimazole (Lotrimin 1% Cream) 1 applic TOP BID [facility] Last Admin: 09/11/17 17:18 Dose: 1 applic Dextrose (Dextrose 50% Inj) 0 ml IV STAT PRN; Protocol PRN Reason: Hypoglycemia Protocol Dextrose (Glutose 15) 0 gm PO ONCE PRN; Protocol PRN Reason: Hypoglycemia Protocol Dextrose (Dextrose 50% Inj) 0 ml IV STAT PRN; Protocol PRN Reason: Hypoglycemia Protocol Dextrose (Glutose 15) 0 gm PO ONCE PRN; Protocol PRN Reason: Hypoglycemia Protocol Famotidine (Pepcid) 20 mg PO DAILY [facility] Last Admin: 09/11/17 08:05 Dose: 20 mg Ferrous Sulfate (Feosol) 325 mg PO TID [facility] Last Admin: 09/11/17 17:15 Dose: 325 mg Finasteride (Proscar) 5 mg PO DAILY [facility] Last Admin: 09/11/17 08:06 Dose: 5 mg Furosemide (Lasix) 40 mg PO DAILY [facility] Last Admin: 09/11/17 08:07 Dose: 40 mg Glucagon (Glucagen Diagnostic Kit) 0 mg IM STAT PRN; Protocol PRN Reason: Hypoglycemia Protocol Glucagon (Glucagen Diagnostic Kit) 0 mg IM STAT PRN; Protocol PRN Reason: Hypoglycemia Protocol Heparin Sodium (Porcine) (Heparin) 5,000 units SC Q8 [facility] PRN Reason: Protocol Last Admin: 09/11/17 13:17 Dose: 5,000 units Insulin Lispro Protam/Lispro Human (Humalog Mix 75/25) 12 units SC BID [facility] Last Admin: 09/11/17 17:16 Dose: 12 units Lactulose (Enulose) 10 gm PO DAILY [facility] Last Admin: 09/11/17 08:08 Dose: 10 gm Latanoprost (Xalatan Opht) 1 drop OU HS [facility] Last Admin: 09/10/17 21:47 Dose: 1 drop Lidocaine HCl (Xylocaine 2%) 1 applic TOP ONCE PRN PRN Reason: Pain, moderate (4-7) Last Admin: 09/09/17 08:50 Dose: 1 applic Lisinopril (Zestril) 20 mg PO DAILY [facility] Last Admin: 09/11/17 08:07 Dose: 20 mg Multi-Ingredient Ointment (Hydrophor Oint) 1 applic TOP TID [facility] Last Admin: 09/11/17 17:16 Dose: 1 applic Multivitamins/Minerals (Therapeutic-M Tab) 1 tab PO DAILY [facility] Last Admin: 09/11/17 08:07 Dose: 1 tab Mupirocin (Bactroban Ointment) 1 applic TOP BID [facility] Last Admin: 09/11/17 17:15 Dose: 1 applic Ondansetron HCl (Zofran Inj) 4 mg IVP Q6 PRN PRN Reason: Nausea/Vomiting Last Admin: 08/22/17 05:54 Dose: 4 mg Psyllium Hydrophilic Mucilloid (Hydrocil Instant) 1 pkt PO DAILY [facility] Last Admin: 09/11/17 08:09 Dose: 1 pkt Fluticasone/Salmeterol (Advair Diskus 250/50) 1 puff IH Q12 [facility] Last Admin: 09/11/17 08:03 Dose: 1 puff Sennosides (Senokot Tab) 17.2 mg PO HS [facility] Last Admin: 09/10/17 21:47 Dose: 17.2 mg Tamsulosin HCl (Flomax) 0.8 mg PO HS [facility] Last Admin: 09/10/17 21:45 Dose: 0.8 mg - Labs Labs: 09/06/17 05:15 09/06/17 05:15 PT 12.6 Seconds (9.8-13.1) 09/06/17 05:15 INR 1.1 (0.9-1.2) 09/06/17 05:15
[2017-09-11] MEDS: Latanoprost 0.005% Opht SOUTION OU SCH (21:55)
[2017-09-12] MEDS: Albuterol-Ipratrop 3 mg / 0.5 (3 ml) UD INH SCH ×2 (08:06→11:39)
[2017-09-12] MEDS: Fluticasone-Salmeterol 250-50mcg Diskus IH SCH (08:25)
[2017-09-12] MEDS: Hydrophor Oint TOP SCH ×2 (08:25→12:41)
[2017-09-12] MEDS: Insulin Lispro Mix 75/25 100 units/ml (HumaLog) 10ml SC SCH (08:26)
[2017-09-12] MEDS: Psyllium Packet PO SCH (08:27)
[2017-09-12] MEDS: Lactulose 10 gm/15 ml Syrup PO SCH (08:27)
[2017-09-12] MEDS: Multivitamin With Minerals Tab PO SCH (08:29)
[2017-09-12] MEDS: Cholecalciferol 1,000 INTLU TAB PO SCH (08:31)
[2017-09-12 09:08] VITALS: BP 126/70; PULSE 65; RESP 19; TEMP 97.1; O2SAT 98
--- NOTE | 2017-09-12 16:00 | CP.PCM.DIS ---
Provider - Provider Date of Admission: 08/19/17 17:33 Attending physician: Elvia Brewer MD Primary care physician: Dani Carlos MD Time Spent in preparation of Discharge (in minutes): 35 Diagnosis - Discharge Diagnosis (1) Ischemic stroke Status: Acute (2) Urinary retention Status: Acute Hospital Course - Lab Results Lab Results: Micro Results 09/10/17 06:53 Urine,Hollis Urine Culture - Final No Growth (<1,000 CFU/ML) 09/05/17 18:30 Urine,Hollis Urine Culture - Final Yeast Species Most Recent Lab Values WBC 7.3 K/uL (4.8-10.8) 09/06/17 05:15 RBC 2.75 Mil/uL (4.40-5.90) L 09/06/17 05:15 Hgb 8.6 g/dL (12.0-18.0) L 09/06/17 05:15 Hct 25.2 % (35.0-51.0) L 09/06/17 05:15 MCV 91.8 fl (80.0-94.0) 09/06/17 05:15 MCH 31.1 pg (27.0-31.0) H 09/06/17 05:15 MCHC 33.9 g/dL (33.0-37.0) 09/06/17 05:15 RDW 14.4 % (11.5-14.5) 09/06/17 05:15 Plt Count 329 K/uL (130-400) 09/06/17 05:15 MPV 8.6 fl (7.2-11.7) 09/05/17 17:23 Neut % (Auto) 77.1 % (50.0-75.0) H 09/05/17 17:23 Lymph % (Auto) 8.8 % (20.0-40.0) L 09/05/17 17:23 [place] % (Auto) 9.6 % (0.0-10.0) 09/05/17 17:23 Eos % (Auto) 4.1 % (0.0-4.0) H 09/05/17 17:23 Baso % (Auto) 0.4 % (0.0-2.0) 09/05/17 17:23 Neut # (Auto) 7.1 K/uL (1.8-7.0) H 09/05/17 17:23 Lymph # (Auto) 0.8 K/uL (1.0-4.3) L 09/05/17 17:23 [place] # (Auto) 0.9 K/uL (0.0-0.8) H 09/05/17 17:23 Eos # (Auto) 0.4 K/uL (0.0-0.7) 09/05/17 17:23 Baso # (Auto) 0.0 K/uL (0.0-0.2) 09/05/17 17:23 Neutrophils % (Manual) 82 % (42-75) H 09/05/17 17:23 Lymphocytes % (Manual) 11 % (20-50) L 09/05/17 17:23 Monocytes % (Manual) 6 % (0-10) 09/05/17 17:23 Eosinophils % (Manual) 1 % (0-7) 09/05/17 17:23 Platelet Estimate Normal (NORMAL) 09/05/17 17:23 Large Platelets Present 09/05/17 17:23 Anisocytosis (manual) Slight 09/05/17 17:23 Microcytosis (manual) Slight 09/05/17 17:23 Tear Drop Cells Slight 09/05/17 17:23 Ovalocytes Moderate 09/05/17 17:23 Retic Count 1.9 % (0.5-1.5) H 08/26/17 06:05 PT 12.6 Seconds (9.8-13.1) 09/06/17 05:15 INR 1.1 (0.9-1.2) 09/06/17 05:15 Sodium 134 mmol/l (132-148) 09/06/17 05:15 Potassium 4.1 MMOL/L (3.6-5.0) 09/06/17 05:15 Chloride 100 mmol/L (98-107) 09/06/17 05:15 Carbon Dioxide 26 mmol/L (22-30) 09/06/17 05:15 Anion Gap 12 (10-20) 09/06/17 05:15 BUN 22 mg/dl (9-20) H 09/12/17 05:15 Creatinine 1.7 mg/dl (0.8-1.5) H 09/12/17 05:15 Est GFR ( Amer) 47 09/12/17 05:15 Est GFR (Non-Af Amer) 39 09/12/17 05:15 POC Glucose (mg/dL) 105 mg/dL (65-110) 09/12/17 06:22 Random Glucose 92 mg/dL (75-110) 09/06/17 05:15 Calcium 8.7 mg/dL (8.4-10.2) 09/06/17 05:15 Iron 23 ug/dL (49-181) L 08/26/17 06:05 TIBC 212 ug/dL (250-450) L 08/26/17 06:05 % Saturation 11 % (20-55) L 08/26/17 06:05 Ferritin 447.0 ng/Ml (17.9-464) 08/26/17 06:05 Total Bilirubin 0.3 mg/dl (0.2-1.3) 09/06/17 05:15 AST 27 U/L (17-59) 09/06/17 05:15 ALT 32 U/L (21-72) 09/06/17 05:15 Alkaline Phosphatase 106 U/L (38-126) 09/06/17 05:15 Total Protein 5.7 G/DL (6.3-8.2) L 09/06/17 05:15 Albumin 3.0 g/dL (3.5-5.0) L 09/06/17 05:15 Globulin 2.8 gm/dL (2.2-3.9) 09/06/17 05:15 Albumin/Globulin Ratio 1.1 (1.0-2.1) 09/06/17 05:15 Free PSA 3.7 ng/mL 09/05/17 17:23 % Free PSA 44 % (calc) (>25) 09/05/17 17:23 Total PSA 8.5 ng/mL (< or = 4.0) H 09/05/17 17:23 Urine Color Light yellow (YELLOW) 09/10/17 06:56 Urine Clarity Clear (Clear) 09/10/17 06:56 Urine pH 7.0 (5.0-8.0) 09/10/17 06:56 Ur Specific [place] 1.005 (1.003-1.030) 09/10/17 06:56 Urine Protein 100 mg/dL (NEGATIVE) 09/10/17 06:56 Urine Glucose (UA) Neg mg/dL (Normal) 09/10/17 06:56 Urine Ketones Negative mg/dL (NEGATIVE) 09/10/17 06:56 Urine Blood Negative (NEGATIVE) 09/10/17 06:56 Urine Nitrate Negative (NEGATIVE) 09/10/17 06:56 Urine Bilirubin Negative (NEGATIVE) 09/10/17 06:56 Urine Urobilinogen 0.2-1.0 mg/dL (0.2-1.0) 09/10/17 06:56 Ur Leukocyte Esterase Trace M[place]/uL (Negative) 09/10/17 06:56 Urine RBC (Auto) 2 /hpf (0-3) 09/10/17 06:56 Urine WBC Clumps (Auto) Many /hpf (NONE) H 09/05/17 18:30 Urine Microscopic WBC 2 /hpf (0-5) 09/10/17 06:56 Urine Bacteria Occ (<OCC) H 09/05/17 18:30 Urine Yeast (Budding) Rare /hpf (NEGATIVE) H 09/05/17 18:30 Stool Occult Blood Positive (NEGATIVE) H 08/25/17 12:06 Blood Type O POSITIVE 08/26/17 06:05 Antibody Screen Negative 08/26/17 06:05 BBK History Checked Patient has bt 08/26/17 06:05 - Hospital Course Hospital Course: 82 YO male with PMHz of Diastolic HF, COPD, CAD s/p stent x 4, CKD, DM2 on insulin, HTN, HLD, Colon CA s/p surgery (1961), TIA/CVA (1988), left eye blindness/diabetic retinopathy, stroke x 2 (L temporal/occipital and L frontal lobe), admitted to Acute rehab for rehabiliation needs. Rehab course: The patient gained some some mobility of RUE and RLE with PT/OT, patient reamins wheelchair dependent. During rehab course patient was consulted by urology Dr. Boss due to urinary retention secondary to BPH needed hollis cath, several trials of hollis removal and voiding failed, patient is D/C home with hollis cath in place, family was instructed on hollis care and to f/u with urology as outpatient. Discharge Exam - Head Exam Head Exam: ATRAUMATIC, NORMOCEPHALIC - Eye Exam Eye Exam: PERRL - ENT Exam ENT Exam: Mucous Membranes Moist - Respiratory Exam Respiratory Exam: Clear to PA & Lateral. absent: Wheezes - Cardiovascular Exam Cardiovascular Exam: REGULAR RHYTHM, +S1, +S2 - GI/Abdominal Exam GI & Abdominal Exam: Normal Bowel Sounds, Soft - Neurological Exam Neurological exam: Alert, Oriented x3 - Psychiatric Exam Psychiatric exam: Normal Affect, Normal Mood - Skin Skin Exam: Normal Color, Warm Discharge Plan - Discharge Medications Prescriptions: Albuterol 0.083% [Albuterol 0.083% Inhal Bere (2.5 mg/3 ml) UD] 3 ml IH Q6 PRN # 3 neb PRN Reason: Shortness Of Breath amLODIPine [Norvasc] 10 mg PO DAILY #30 tab Aspirin [Aspirin Chewable] 81 mg PO DAILY #30 chew Atorvastatin [Lipitor] 40 mg PO DAILY #30 tab Carvedilol [Coreg] 25 mg PO Q12 3 Days #30 tab Cholecalciferol [Vitamin D 1000 IU] 2,000 intlu PO DAILY #30 tab Clopidogrel [Plavix] 75 mg PO DAILY #30 tab Ferrous Sulfate [Feosol] 325 mg PO TID 3 Days #30 tab Finasteride [Proscar] 5 mg PO DAILY #30 tab Fluticasone/Salmeterol 250/50 [Advair Diskus 250/50] 1 puff IH Q12 #1 puff Furosemide [Lasix] 40 mg PO DAILY #30 tab Latanoprost 0.005% Opht [Xalatan Opht] 1 drop EACHEYE HS #1 bottle Lisinopril [Zestril] 20 mg PO DAILY #30 tab Multimineral/Multivitamin [Therapeutic-M Tab] 1 tab PO DAILY 3 Days #30 tab Tamsulosin [Flomax] 0.8 mg PO HS #30 cap - Follow Up Plan Condition: STABLE Disposition: HOME/ ROUTINE Instructions: Insulin Lispro Protamine and Insulin Lispro, Stroke, Type 2 Diabetes, High Blood Pressure in Adults, Heart Healthy Diet, How to Care for Your Hollis Catheter, Male, Exacerbation of COPD, Preventing Falls, Amlodipine, Aspirin, Atorvastatin, Carvedilol, Cholecalciferol, Clopidogrel, Famotidine, Ferrous Sulfate, Finasteride, Fluticasone and Salmeterol, Furosemide, Lactulose , Latanoprost, Lisinopril, Mupirocin, Psyllium, Senna, Tamsulosin, Vitamins ( Multiple/Oral), Going Home on Blood Thinners Additional Instructions: follow up with primary doctor in 1 week follow up with urology take medications as prescribed any worsening of symptoms return to ED Referrals: Shamar Boss MD [Staff Provider] - Dani Carlos MD [Primary Care Provider] -
== END 2017-09-12 14:20 | disposition home or self-care (01) | DRG 56 ==
PROVIDERS: ADMIT Family Medicine Geriatric Medicine; ATTEND Family Medicine Geriatric Medicine
PROC: F07Z9FZ Gait Training/Functional Ambulation Treatment using Assistive, Adaptive, Supportive or Protective Equipment (ICD-10-PCS; principal; 2017-08-19)
PROC: F08Z4FZ Home Management Treatment using Assistive, Adaptive, Supportive or Protective Equipment (ICD-10-PCS; 2017-08-19)
PROC: F06Z3MZ Aphasia Treatment using Augmentative / Alternative Communication Equipment (ICD-10-PCS; 2017-08-19)
PROC: F07L6FZ Therapeutic Exercise Treatment of Musculoskeletal System - Lower Back / Lower Extremity using Assistive, Adaptive, Supportive or Protective Equipment (ICD-10-PCS; 2017-08-20)
PROC: F07J6FZ Therapeutic Exercise Treatment of Musculoskeletal System - Head and Neck using Assistive, Adaptive, Supportive or Protective Equipment (ICD-10-PCS; 2017-08-20)
DX: I69.351 Hemiplegia and hemiparesis following cerebral infarction affecting right dominant side (principal); J69.0 Pneumonitis due to inhalation of food and vomit; I50.32 Chronic diastolic (congestive) heart failure; B37.49 Other urogenital candidiasis; I13.0 Hypertensive heart and chronic kidney disease with heart failure and stage 1 through stage 4 chronic kidney disease, or unspecified chronic kidney disease; I69.320 Aphasia following cerebral infarction; I69.391 Dysphagia following cerebral infarction; R13.19 Other dysphagia; E11.22 Type 2 diabetes mellitus with diabetic chronic kidney disease; N18.3 Chronic kidney disease, stage 3 (moderate); N40.1 Benign prostatic hyperplasia with lower urinary tract symptoms; R33.8 Other retention of urine; E11.319 Type 2 diabetes mellitus with unspecified diabetic retinopathy without macular edema; K59.09 Other constipation; K64.4 Residual hemorrhoidal skin tags; J44.9 Chronic obstructive pulmonary disease, unspecified; I25.10 Atherosclerotic heart disease of native coronary artery without angina pectoris; E78.5 Hyperlipidemia, unspecified; E78.00 Pure hypercholesterolemia, unspecified; D64.9 Anemia, unspecified; H54.62 Unqualified visual loss, left eye, normal vision right eye; Z85.038 Personal history of other malignant neoplasm of large intestine; Z95.5 Presence of coronary angioplasty implant and graft; Z88.6 Allergy status to analgesic agent; Z87.891 Personal history of nicotine dependence; Z79.4 Long term (current) use of insulin; Z79.02 Long term (current) use of antithrombotics/antiplatelets; Z79.82 Long term (current) use of aspirin; Z99.3 Dependence on wheelchair

== ENCOUNTER 2017-09-17 10:35 | Emergency (ER) | payer MEDICARE, OTHER ==
[2017-09-17 10:39] VITALS: BMI 27.6
[2017-09-17] MEDS ORDERED: Sodium Chloride 0.9% 1,000 ML IV STA (11:10)
--- NOTE | 2017-09-17 11:17 | ED PDOC ---
HPI: General Adult Time Seen by Provider: 09/17/17 10:44 Chief Complaint (Nursing): Dizziness/Lightheaded Chief Complaint (Provider): Dizziness History Per: Patient, Family History/Exam Limitations: no limitations Onset/Duration Of Symptoms: Days (today) Current Symptoms Are (Timing): Better Additional Complaint(s): Pt. with dizziness like light-headed when at rehab. They checked his blood pressure which was 93 systolic so sent to the ER. Pt. currently not dizzy. He took his lisonpril, but not the amlodipine that he takes usually. Pt. dc Thurs after being admitted for stroke. Has has residual right side weakness and trouble urinating so a hollis is in place. Pt. denies any chest pain, abd pain, dyspnea, cough, numbness, tingles, headaches. Past Medical History Reviewed: Nursing Documentation, Vital Signs Vital Signs: Last Vital Signs Temp 97.5 F L 09/17/17 10:39 Pulse 74 09/17/17 12:54 Resp 20 09/17/17 12:54 BP 128/65 09/17/17 12:54 Pulse Ox 98 09/17/17 13:54 - Medical History PMH: Arthritis, CAD, CHF, COPD, CVA (with right side weakness), Diabetes (type II), HTN, Hypercholesterolemia, Malignancy (colon), Chronic Kidney Disease, TIA (Per history in ~1988) Denies: HIV - Surgical History Surgical History: Coronary Stent (x4) - Family History Family History: States: Unknown Family Hx - Social History Alcohol: None Drugs: Denies - Home Medications Home Medications: Ambulatory Orders Medication Instructions Recorded Albuterol/Ipratropium [Duoneb 3 3 ml INH RQID neb 08/19/17 mg/0.5 mg (3 ml) UD] Insulin Lispro [humALOG] 20 units SC BID 08/19/17 Albuterol 0.083% [Albuterol 0.083% 3 ml IH Q6 PRN #3 neb 09/12/17 Inhal Bere (2.5 mg/3 ml) UD] Aspirin [Aspirin Chewable] 81 mg PO DAILY #30 chew 09/12/17 Atorvastatin [Lipitor] 40 mg PO DAILY #30 tab 09/12/17 Carvedilol [Coreg] 25 mg PO Q12 3 Days #30 tab 09/12/17 Cholecalciferol [Vitamin D 1000 IU] 2,000 intlu PO DAILY #30 tab 09/12/17 Clopidogrel [Plavix] 75 mg PO DAILY #30 tab 09/12/17 Ferrous Sulfate [Feosol] 325 mg PO TID 3 Days #30 tab 09/12/17 Finasteride [Proscar] 5 mg PO DAILY #30 tab 09/12/17 Fluticasone/Salmeterol 250/50 1 puff IH Q12 #1 puff 09/12/17 [Advair Diskus 250/50] Furosemide [Lasix] 40 mg PO DAILY #30 tab 09/12/17 Latanoprost 0.005% Opht [Xalatan 1 drop EACHEYE HS #1 bottle 09/12/17 Opht] Lisinopril [Zestril] 20 mg PO DAILY #30 tab 09/12/17 Multimineral/Multivitamin 1 tab PO DAILY 3 Days #30 tab 09/12/17 [Therapeutic-M Tab] Tamsulosin [Flomax] 0.8 mg PO HS #30 cap 09/12/17 amLODIPine [Norvasc] 10 mg PO DAILY #30 tab 09/12/17 Nitrofurantoin Macrocrystals 100 mg PO BID #10 cap 09/17/17 [Macrobid] - Allergies Allergies/Adverse Reactions: Allergies Allergy/AdvReac Type Severity Reaction Status Date / Time morphine Allergy VOMITING Verified 02/02/16 19:03 Review of Systems ROS Statement: Except As Marked, All Systems Reviewed And Found Negative Neurological: Positive for: Dizziness Physical Exam - Reviewed Nursing Documentation Reviewed: Yes Vital Signs Reviewed: Yes - Physical Exam Appears: Positive for: Non-toxic, No Acute Distress Head Exam: Positive for: ATRAUMATIC, NORMAL INSPECTION, NORMOCEPHALIC Skin: Positive for: Normal Color, Warm, DRY Eye Exam: Positive for: EOMI, Normal appearance, PERRL ENT: Positive for: Normal ENT Inspection Neck: Positive for: Normal, Painless ROM, Supple Cardiovascular/Chest: Positive for: Regular Rate, Rhythm Respiratory: Positive for: CNT, Normal Breath Sounds Gastrointestinal/Abdominal: Positive for: Normal Exam, Soft. Negative for: Tenderness Back: Positive for: Normal Inspection. Negative for: L CVA Tenderness, R CVA Tenderness Extremity: Negative for: Normal ROM (R side limited due to stroke hx), Tenderness, Pedal Edema Neurologic/Psych: Positive for: Alert, base manager II-XII, Oriented, Motor/Sensory Deficits (R 3/5 L 5/5) - Laboratory Results Result Diagrams: 09/17/17 11:20 09/17/17 11:20 Interpretation Of Abn Labs: 22/1.8 bun/cr urine wbc - ECG ECG Rhythm: Positive for: Sinus Rhythm, Nonspecific Changes O2 Sat by Pulse Oximetry: 98 Pulse Ox Interpretation: Normal - Progress ED Course And Treament: 1356: Stable. AAOx3. Pain free. Tolerated PO. No dizziness since in ER. BP and vitals maintained. Kidney function same as previous. Urine wbc present previous. Will tx with antibiotics and order cx. [facility] resident came to see pt. Spoke with his attending and wants dc. Pt. wants to go home. Fu with pcp. Disposition - Clinical Impression Clinical Impression: Dizziness, UTI (urinary tract infection) - Patient ED Disposition Is Patient to be Admitted: No Counseled Patient/Family Regarding: Studies Performed, Diagnosis, Need For Followup, Rx Given - Disposition Referrals: [facility] [Outside] - 09/18/17 Disposition: Routine/Home Disposition Time: 13:58 Condition: STABLE Additional Instructions: Return if not better in 3 days. Stop the amlodipine. Fu with clinic. Prescriptions: Nitrofurantoin Macrocrystals [Macrobid] 100 mg PO BID #10 cap Instructions: Urinary Tract Infections in Adults, Dizziness, Nonvertigo, (DC)
[2017-09-17 11:35] VITALS: RESP 20
[2017-09-17 11:36] LABS: BASO % 0.5 % (0.0-2.0); EOS # 0.4 K/uL (0.0-0.7); EOS % 6.2 % (0.0-4.0); HEMOGLOBIN 10.7 g/dL (12.0-18.0); LYMPH # 0.9 K/uL (1.0-4.3); LYMPH % 13.4 % (20.0-40.0); MEAN CELL VOLUME 91.5 fl (80.0-94.0); MEAN CORPUSCULAR HEMOGLOBIN 31.5 pg (27.0-31.0); MEAN CORPUSCULAR HGB CONC 34.4 g/dL (33.0-37.0); MEAN PLATELET VOLUME 8.1 fl (7.2-11.7); MONO # 0.8 K/uL (0.0-0.8); MONO % 11.3 % (0.0-10.0); NEUT # 4.7 K/uL (1.8-7.0); NEUT % 68.6 % (50.0-75.0); NRBC % 0.1 % (0.0-0.0); RBC 3.41 Mil/uL (4.40-5.90); RED CELL DISTRIBUTION WIDTH 15.5 % (11.5-14.5); WHITE BLOOD COUNT 6.8 K/uL (4.8-10.8)
[2017-09-17 11:43] LABS: INR 1.1 (0.9-1.2); PARTIAL THROMBOPLASTIN TIME 37.5 Seconds (25.6-37.1); PROTHROMBIN TIME 12.3 Seconds (9.8-13.1)
[2017-09-17 11:53] LABS: ALB/GLOB RATIO 1.2 (1.0-2.1); CALCIUM 9.3 mg/dL (8.4-10.2)
[2017-09-17 12:00] LABS: TROPONIN I 0.034 ng/mL (0.00-0.120)
[2017-09-17 12:10] LABS: GRANULAR CAST 1 /lpf (0-1); SQUAMOUS EPITHIAL < 1 /hpf (0-5); URINE BACTERIA RARE (<OCC); URINE BILIRUBIN NEGATIVE (NEGATIVE); URINE BLOOD SMALL (NEGATIVE); URINE CLARITY CLOUDY (Clear); URINE COLOR YELLOW (YELLOW); URINE GLUCOSE (UA) 50 mg/dL (Normal); URINE LEUKOCYTE ESTERASE MOD Leu/uL (Negative); URINE PROTEIN >=500 mg/dL (NEGATIVE); URINE UROBILINOGEN 0.2-1.0 mg/dL (0.2-1.0)
--- NOTE | 2017-09-17 12:13 | CT ---
Date of service: 09/17/2017 PROCEDURE: CT HEAD WITHOUT CONTRAST. HISTORY: headache COMPARISON: 08/14/2017 TECHNIQUE: Axial computed tomography images were obtained through the head/brain without intravenous contrast. Radiation dose: Total exam DLP = 919.35 mGy-cm. This CT exam was performed using one or more of the following dose reduction techniques: Automated exposure control, adjustment of the mA and/or kV according to patient size, and/or use of iterative reconstruction technique. FINDINGS: HEMORRHAGE: No intracranial hemorrhage. BRAIN: No mass effect or edema. Stable old left occipital infarct. Stable small old bilateral high frontal infarcts. Please note that the left frontal infarct may have been subacute, retrospectively, at the time of the 08/14/2017 examination. There has been maturing of this infarct in the interval between these examinations. No evidence of acute infarct. Minimal atrophy. Moderate chronic periventricular and deep white matter lucency consistent with microvascular ischemic change. VENTRICLES: Unremarkable. No hydrocephalus. CALVARIUM: Unremarkable. PARANASAL SINUSES: Unremarkable as visualized. No significant inflammatory changes. MASTOID AIR CELLS: Unremarkable as visualized. No inflammatory changes. OTHER FINDINGS: None. IMPRESSION: No intracranial mass or hemorrhage. No evidence of acute infarct. Multifocal old cerebral infarcts as described. Chronic white matter ischemic change.
[2017-09-17 13:42] VITALS: O2SAT 98
--- NOTE | 2017-09-17 13:47 | CP.PCM.CON ---
History of Present Illness - History of Present Illness History of Present Illness: 82 y/o man w/ PMH of Diastolic HF (last echo 08/12/2017), COPD, CAD s/p stent x 4, CKD, DM2 on insulin, HTN, HLD, Colon CA s/p surgery (1961), TIA/CVA (1988), left eye blindness/diabetic retinopathy, stroke x 2 (L temporal/occipital and L frontal lobe) presented to ED w/ low BP and dizziness. Patient was sent from rehab due to BP 93 systolic. Patient with no new focal changes but still has right sided weakness from recent stroke. Patient took lisinopril this morning but not amlodipine. Patient seen in ED and BP WNL. Patient denies any headaches, dizziness, chest pain, SOB, abdominal pain, nausea, vomiting, or fever. Patient is with family and they report that patient is at his usual baseline. Patient has rehab scheduled for 09/19/2017. Patient has follow up in [facility] scheduled for 09/23/2017. Review of Systems - Review of Systems All systems: reviewed and no additional remarkable complaints except - Constitutional Constitutional: absent: Chills, Fever - EENT Eyes: absent: Change in Vision - Cardiovascular Cardiovascular: absent: Chest Pain - Respiratory Respiratory: absent: Dyspnea - Gastrointestinal Gastrointestinal: absent: Abdominal Pain, Nausea, Vomiting - Genitourinary Genitourinary: absent: Dysuria - Integumentary Integumentary: absent: Rash - Neurological Neurological: As Per HPI Past Patient History - Infectious Disease Hx of Infectious Diseases: None - Tetanus Immunizations Tetanus Immunization: Unknown - Past Medical History & Family History Past Medical History?: Yes - Past Social History Alcohol: None Drugs: Denies - CARDIAC Hx Congestive Heart Failure: Yes Hx Hypercholesterolemia: Yes Hx Hypertension: Yes - PULMONARY Hx Chronic Obstructive Pulmonary Disease (COPD): Yes - NEUROLOGICAL Hx Transient Ischemic Attacks (TIA): Yes (Per history in ~1988) - HEENT 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) Hx Cataracts: Yes (left eye) - RENAL Hx Chronic Kidney Disease: Yes - ENDOCRINE/METABOLIC Hx Diabetes Mellitus Type 2: Yes (Insuline at home) - HEMATOLOGICAL/ONCOLOGICAL Hx Human Immunodeficiency Virus (HIV): No - INTEGUMENTARY Hx Dermatological Problems: No - MUSCULOSKELETAL/RHEUMATOLOGICAL Hx Arthritis: Yes - GASTROINTESTINAL Hx Gastrointestinal Disorders: No - GENITOURINARY/GYNECOLOGICAL Hx Genitourinary Disorders: No - PSYCHIATRIC Hx Psychophysiologic Disorder: No Hx Substance Use: No - SURGICAL HISTORY Hx Coronary Stent: Yes (x4) - ANESTHESIA Hx Anesthesia: Yes Hx Anesthesia Reactions: No Meds Home Medications: Home Medication List Medication Instructions Recorded Confirmed Type Nitrofurantoin Macrocrystals 100 mg PO BID #10 cap 09/17/17 Rx [Macrobid] Allergies/Adverse Reactions: Allergies Allergy/AdvReac Type Severity Reaction Status Date / Time morphine Allergy VOMITING Verified 02/02/16 19:03 Physical Exam - Constitutional Appears: Non-toxic, No Acute Distress - Head Exam Head Exam: ATRAUMATIC, NORMAL INSPECTION, NORMOCEPHALIC - Eye Exam Eye Exam: absent: Normal appearance Additional comments: right eye catarracts and left eye blindness - ENT Exam ENT Exam: Mucous Membranes Moist - Neck Exam Neck exam: Positive for: Full Rom. Negative for: Tenderness - Respiratory Exam Respiratory Exam: Clear to Auscultation Bilateral. absent: Accessory Muscle Use , Decreased Breath Sounds, Rales, Rhonchi, Wheezes, Respiratory Distress - Cardiovascular Exam Cardiovascular Exam: REGULAR RHYTHM. absent: Tachycardia, Systolic Murmur Additional comments: repeat manual BP 134/70 mm Hg - GI/Abdominal Exam GI & Abdominal Exam: Normal Bowel Sounds, Soft. absent: Distended, Tenderness - Extremities Exam Extremities exam: Negative for: calf tenderness - Neurological Exam Neurological exam: Alert, CN II-XII Intact, Oriented x3 Additional comments: has right-sided weakness from recent stroke in 08/2017 - Skin Skin Exam: Dry, Intact, Normal Color, Warm Results - Vital Signs Recent Vital Signs: Last Vital Signs Temp 97.5 F L 09/17/17 10:39 Pulse 74 09/17/17 12:54 Resp 20 09/17/17 12:54 BP 128/65 09/17/17 12:54 Pulse Ox 98 09/17/17 13:41 - Labs Result Diagrams: 09/17/17 11:20 09/17/17 11:20 Labs: Laboratory Results - last 24 hr 09/17/17 09/17/17 09/17/17 10:47 11:18 11:20 WBC 6.8 RBC 3.41 L Hgb 10.7 L D Hct 31.2 L MCV 91.5 MCH 31.5 H MCHC 34.4 RDW 15.5 H Plt Count 401 H MPV 8.1 Neut % (Auto) 68.6 Lymph % (Auto) 13.4 L [place] % (Auto) 11.3 H Eos % (Auto) 6.2 H Baso % (Auto) 0.5 Neut # (Auto) 4.7 Lymph # (Auto) 0.9 L [place] # (Auto) 0.8 Eos # (Auto) 0.4 Baso # (Auto) 0.0 PT INR APTT Sodium Potassium Chloride Carbon Dioxide Anion Gap BUN Creatinine Est GFR ( Amer) Est GFR (Non-Af Amer) POC Glucose (mg/dL) 183 H 156 H Random Glucose Calcium Total Bilirubin AST ALT Alkaline Phosphatase Troponin I Total Protein Albumin Globulin Albumin/Globulin Ratio Urine Color Urine Clarity Urine pH Ur Specific [place] Urine Protein Urine Glucose (UA) Urine Ketones Urine Blood Urine Nitrate Urine Bilirubin Urine Urobilinogen Ur Leukocyte Esterase Urine RBC (Auto) Urine Microscopic WBC Ur Squamous Epith Cells Urine Bacteria Hyaline Casts Granular Casts (Auto) 09/17/17 09/17/17 09/17/17 11:20 11:20 11:55 WBC RBC Hgb Hct MCV MCH MCHC RDW Plt Count MPV Neut % (Auto) Lymph % (Auto) [place] % (Auto) Eos % (Auto) Baso % (Auto) Neut # (Auto) Lymph # (Auto) [place] # (Auto) Eos # (Auto) Baso # (Auto) PT 12.3 INR 1.1 APTT 37.5 H Sodium 133 Potassium 5.0 Chloride 98 Carbon Dioxide 25 Anion Gap 15 BUN 22 H Creatinine 1.8 H Est GFR ( Amer) 44 Est GFR (Non-Af Amer) 36 POC Glucose (mg/dL) Random Glucose 163 H Calcium 9.3 Total Bilirubin 0.4 AST 37 ALT 29 Alkaline Phosphatase 142 H D Troponin I 0.0340 Total Protein 7.4 Albumin 4.0 Globulin 3.4 Albumin/Globulin Ratio 1.2 Urine Color Yellow Urine Clarity Cloudy Urine pH 5.0 Ur Specific [place] 1.016 Urine Protein >=500 Urine Glucose (UA) 50 Urine Ketones Negative Urine Blood Small Urine Nitrate Negative Urine Bilirubin Negative Urine Urobilinogen 0.2-1.0 Ur Leukocyte Esterase Mod Urine RBC (Auto) 22 H Urine Microscopic WBC 96 H Ur Squamous Epith Cells < 1 Urine Bacteria Rare Hyaline Casts 3-5 H Granular Casts (Auto) 1 Assessment & Plan - Assessment and Plan (Free Text) Assessment: 82 y/o man w/ PMH of Diastolic HF (last echo 08/12/2017), COPD, CAD s/p stent x 4, CKD, DM2 on insulin, HTN, HLD, Colon CA s/p surgery (1961), TIA/CVA (1988), left eye blindness/diabetic retinopathy, stroke x 2 (L temporal/occipital and L frontal lobe) presented to ED w/ low BP and dizziness Plan: Low BP - patient currently denies dizziness or headaches - repeat manual BP 134/70 mm Hg - CBC showed improvement of Hb 10.7 (previous was 8.6) - patient CMP WNL, Cr stable at 1.8 - Head CT shows no acute intracranial bleed - EKG sinus lakshmi but not acute ST changes, T wave findings consistent w/ previous EKG - troponin neg - patient at baseline - no new focal changes Dispo: patient evaluated, neuro exam done, and manual BP checked. Patient found to be at baseline, asympotmatic and BP is WNL. Patient is cleared to return to rehab for continued physical therapy. Patient to follow up w/ [facility] on 09/23/2017.
[2017-09-17 15:09] VITALS: BP 128/76; PULSE 78; TEMP 97.6
--- NOTE | 2017-09-17 15:17 | CARD ---
APPROVED REPORT Date of service: 09/17/2017 EKG Measurement Heart [id number] <Conclusion> Sinus bradycardia Minimal voltage criteria for LVH, may be normal variant T wave abnormality, consider lateral ischemia Abnormal ECG
== END 2017-09-17 15:09 | disposition home or self-care (01) ==
LOC: H.ER 10:35
DX: R42 Dizziness and giddiness (principal); N39.0 Urinary tract infection, site not specified; C18.9 Malignant neoplasm of colon, unspecified; E11.319 Type 2 diabetes mellitus with unspecified diabetic retinopathy without macular edema; E78.00 Pure hypercholesterolemia, unspecified; I13.0 Hypertensive heart and chronic kidney disease with heart failure and stage 1 through stage 4 chronic kidney disease, or unspecified chronic kidney disease; Z79.4 Long term (current) use of insulin; Z86.73 Personal history of transient ischemic attack (TIA), and cerebral infarction without residual deficits; Z85.038 Personal history of other malignant neoplasm of large intestine; Z95.5 Presence of coronary angioplasty implant and graft
CPT/HCPCS: 70450; 80053; 81003; 82948; 84484; 85025; 85610; 85730; 93005; 99285; J7030

== ENCOUNTER 2017-10-16 16:02 | Inpatient (IN) | payer MEDICARE, OTHER ==
[2017-10-16 16:02] VITALS: BMI 27.6
--- NOTE | 2017-10-16 17:07 | ED PDOC ---
HPI: Hypertension/Hypotension Time Seen by Provider: 10/16/17 16:26 Chief Complaint (Nursing): High Blood Pressure Chief Complaint (Provider): Nausea and Vomiting History Per: Patient History/Exam Limitations: no limitations Onset/Duration Of Symptoms: Days Current Symptoms Are (Timing): Still Present Associated Symptoms: denies: Headache Additional Complaint(s): Israel Banegas, an 82 year old male with past medical history of CAD, CHF, COPD, CVA, HTN and diabetes, who presents to the emergency department for evaluation of high blood pressure onset since last night associated with mild vomiting. Patient was recently hospitalized for x6 weeks due to stroke with right sided weakness with no obvious residual and was discharge on September 12. Since then patient has been compliant with medications and has had no symptoms. However, patient states that he felt like his blood pressure was high last night , and this morning he had a few episodes of mild vomiting and nausea. He is able to tolerate food intermittently since. Upon arrival to ED patient's blood pressure was high, no neurological deficits, no weakness, numbness or slurred speech. Patient is AOEX3 with no fever or headache. His family was concerned because last time he presented with stroke he was also vomiting and blood pressure was high. No further medical complaints. PMD: Dr. Carlos Past Medical History Reviewed: Historical Data, Nursing Documentation, Vital Signs Vital Signs: Last Vital Signs Temp 97.7 F 10/16/17 16:05 Pulse 78 10/16/17 16:05 Resp 16 10/16/17 16:05 BP 206/82 H 10/16/17 16:05 Pulse Ox 99 10/16/17 16:05 - Medical History PMH: Arthritis, CAD, CHF, COPD, CVA (with right side weakness), Diabetes (type II), HTN, Hypercholesterolemia, Malignancy (colon), Chronic Kidney Disease, TIA (Per history in ~1988) Denies: HIV - Surgical History Surgical History: Coronary Stent (x4) - Family History Family History: States: Unknown Family Hx - Social History Ex-Smoker (has not smoked in the last 12 months): Yes Alcohol: None Drugs: Denies - Home Medications Home Medications: Ambulatory Orders Medication Instructions Recorded Albuterol 0.083% [Albuterol 0.083% 3 ml IH Q6 PRN #3 neb 09/12/17 Inhal Bere (2.5 mg/3 ml) UD] Aspirin [Aspirin Chewable] 81 mg PO DAILY #30 chew 09/12/17 Atorvastatin [Lipitor] 40 mg PO DAILY #30 tab 09/12/17 Cholecalciferol [Vitamin D 1000 IU] 2,000 intlu PO DAILY #30 tab 09/12/17 Clopidogrel [Plavix] 75 mg PO DAILY #30 tab 09/12/17 Ferrous Sulfate [Feosol] 325 mg PO TID 3 Days #30 tab 09/12/17 Finasteride [Proscar] 5 mg PO DAILY #30 tab 09/12/17 Fluticasone/Salmeterol 250/50 1 puff IH Q12 #1 puff 09/12/17 [Advair Diskus 250/50] Furosemide [Lasix] 40 mg PO DAILY #30 tab 09/12/17 Latanoprost 0.005% Opht [Xalatan 1 drop EACHEYE HS #1 bottle 09/12/17 Opht] Lisinopril [Zestril] 20 mg PO DAILY #30 tab 09/12/17 Tamsulosin [Flomax] 0.8 mg PO HS #30 cap 09/12/17 amLODIPine [Norvasc] 10 mg PO DAILY #30 tab 09/12/17 Carvedilol [Coreg] 25 mg PO HS 10/16/17 Insulin Aspart, Recombinant 20 unit SC BID 10/16/17 [Novolog] - Allergies Allergies/Adverse Reactions: Allergies Allergy/AdvReac Type Severity Reaction Status Date / Time morphine Allergy VOMITING Verified 10/16/17 16:04 Review of Systems ROS Statement: Except As Marked, All Systems Reviewed And Found Negative Constitutional: Negative for: Fever, Weakness Respiratory: Negative for: Shortness of Breath Gastrointestinal: Positive for: Nausea, Vomiting (mild) Neurological: Negative for: Weakness, Numbness, Headache, Dizziness, Other ( slurred speech) Physical Exam - Reviewed Nursing Documentation Reviewed: Yes Vital Signs Reviewed: Yes - Physical Exam Appears: Positive for: Non-toxic, No Acute Distress Head Exam: Positive for: ATRAUMATIC, NORMAL INSPECTION, NORMOCEPHALIC Skin: Positive for: Normal Color, Warm, Dry Eye Exam: Positive for: EOMI, Normal appearance, PERRL ENT: Positive for: Normal ENT Inspection Neck: Positive for: Normal, Painless ROM, Supple. Negative for: Decreased ROM Cardiovascular/Chest: Positive for: Regular Rate, Rhythm. Negative for: Edema, Murmur Respiratory: Positive for: Normal Breath Sounds. Negative for: Wheezing, Respiratory Distress Gastrointestinal/Abdominal: Positive for: Normal Exam (obese), Soft, Other ( previous surgical scar). Negative for: Tenderness, Distended, Guarding, Rebound Back: Positive for: Normal Inspection Extremity: Positive for: Normal ROM (upper and lower extremities). Negative for : Tenderness, Pedal Edema, Deformity, Swelling Neurologic/Psych: Positive for: Alert, asset administrator II-XII (intact and symmetric), Oriented (x3), Other (Strength equal b/l on upper and lower extremities). Negative for: Motor/Sensory Deficits (face or extremities) - Laboratory Results Result Diagrams: 10/18/17 11:14 10/18/17 11:14 - ECG O2 Sat by Pulse Oximetry: 99 (RA) Pulse Ox Interpretation: Normal Medical Decision Making Medical Decision Making: Time: 1634 Initial Impression: Based on previous medical history, will do cardiac work up, dose of Norvasc as his evening dose of medications. Suspicion for neurological compromise is low based on physical exam and presentation. However, we will repeat brain CT based on stroke history and previous presentations with stroke. Initial Plan: --EKG --B-type Natriuretic Peptide --BMP --Troponin --CBC w/ Differential --PTT --Prothrombin Time --Chest One View [RAD] --Building Mechanic --IV Insertion --Urinalysis Time: 17:07 Chest xray FINDINGS: LUNGS: Clear. PLEURA: No pneumothorax or pleural fluid seen. CARDIOVASCULAR: Normal. OSSEOUS STRUCTURES: No significant abnormalities. VISUALIZED UPPER ABDOMEN: Normal. OTHER FINDINGS: None. IMPRESSION: No active disease. Time: 19:06 CT head FINDINGS: Brain: There is stable age-related diffuse cerebral volume loss and chronic microvascular ischemic disease. Stable likely chronic infarcts in the high left frontal lobe and high right frontal lobe and left occipital lobe. Ventricles: Normal. No ventriculomegaly. Bones/joints: Normal. No acute fracture. Sinuses: There is mild mucosal thickening in the right maxillary sinus. Mastoid air cells: Normal as visualized. No mastoid effusion. Soft tissues: Normal. IMPRESSION: 1. There is stable age-related diffuse cerebral volume loss and chronic microvascular ischemic disease. Stable likely chronic infarcts in the high left frontal lobe and high right frontal lobe and left occipital lobe CT showed no acute changes. Pt with improved BP while in ED but remained nauseaus despite no episodes of vomiting while in the ED. Case discussed with neurosurgeon Dr. Vaughn and admitting physician Dr. Leggett. Pt to be admitted to the floor for accelerated HTN and for further workup. Pt and his daughter have been informed. Hydralazine to be given if SBP >180. Scribe Attestation: Documented by Walker Moore, acting as a scribe for Leslie Fernando MD Provider Scribe Attestation: All medical record entries made by the Scribe were at my direction and personally dictated by me. I have reviewed the chart and agree that the record accurately reflects my personal performance of the history, physical exam, medical decision making, and the department course for this patient. I have also personally directed, reviewed, and agree with the discharge instructions and disposition. Disposition - Clinical Impression Clinical Impression: Hypertensive heart failure, Dizziness - Patient ED Disposition Is Patient to be Admitted: Yes - Disposition Disposition Time: 20:19 Condition: GUARDED
--- NOTE | 2017-10-16 17:21 | RAD ---
Date of service: 10/16/2017 PROCEDURE: CHEST RADIOGRAPH, 1 VIEW HISTORY: chest pain COMPARISON: Comparison is made with 08/23/2017 FINDINGS: LUNGS: Clear. PLEURA: No pneumothorax or pleural fluid seen. CARDIOVASCULAR: Normal. OSSEOUS STRUCTURES: No significant abnormalities. VISUALIZED UPPER ABDOMEN: Normal. OTHER FINDINGS: None. IMPRESSION: No active disease.
[2017-10-16 17:45] LABS: BASO % 0.7 % (0.0-2.0); EOS # 0.3 K/uL (0.0-0.7); EOS % 3.6 % (0.0-4.0); HEMOGLOBIN 10.4 g/dL (12.0-18.0); LYMPH # 1.1 K/uL (1.0-4.3); LYMPH % 16.4 % (20.0-40.0); MEAN CELL VOLUME 91.9 fl (80.0-94.0); MEAN CORPUSCULAR HEMOGLOBIN 30.9 pg (27.0-31.0); MEAN CORPUSCULAR HGB CONC 33.7 g/dL (33.0-37.0); MEAN PLATELET VOLUME 8.9 fl (7.2-11.7); MONO # 0.6 K/uL (0.0-0.8); MONO % 9.1 % (0.0-10.0); NEUT # 4.9 K/uL (1.8-7.0); NEUT % 70.2 % (50.0-75.0); RBC 3.36 Mil/uL (4.40-5.90); RED CELL DISTRIBUTION WIDTH 14.2 % (11.5-14.5); WHITE BLOOD COUNT 6.9 K/uL (4.8-10.8)
[2017-10-16 18:00] LABS: INR 1.1; PROTHROMBIN TIME 11.7 Seconds (9.8-13.1)
[2017-10-16 18:04] LABS: CALCIUM 9.5 mg/dL (8.4-10.2); GFR AFRICAN-AMERICAN > 60; GFR NON-AFRICAN AMERICAN 53
[2017-10-16 18:06] LABS: BLOOD UREA NITROGEN 23 mg/dl (9-20)
[2017-10-16 18:20] LABS: B-TYPE NATRIURETIC PEPTIDE 4690 pg/ml (0-900)
[2017-10-16 18:52] LABS: SQUAMOUS EPITHIAL 1 /hpf (0-5); URINE BACTERIA OCC (<OCC); URINE BILIRUBIN NEGATIVE (NEGATIVE); URINE BLOOD NEGATIVE (NEGATIVE); URINE CLARITY CLEAR (Clear); URINE COLOR YELLOW (YELLOW); URINE GLUCOSE (UA) 150 mg/dL (Normal); URINE LEUKOCYTE ESTERASE NEG Leu/uL (Negative); URINE PROTEIN 100 mg/dL (NEGATIVE); URINE UROBILINOGEN 0.2-1.0 mg/dL (0.2-1.0)
[2017-10-16] MEDS ORDERED: Albuterol 0.083% Inhal Sol (2.5 mg/3 mL) UD IH PRN (22:41)
[2017-10-17] MEDS: Latanoprost 0.005% Opht SOUTION OU SCH ×2 (00:06→21:02)
[2017-10-17] MEDS: Insulin Lispro (humaLOG) 100 Units/ml Inj SC SCH ×7 (00:09→22:44)
--- NOTE | 2017-10-17 07:47 | CARD ---
APPROVED REPORT Date of service: 10/16/2017 <Conclusion> Normal sinus rhythm Left ventricular hypertrophy with repolarization abnormality Abnormal ECG
[2017-10-17] MEDS: Fluticasone-Salmeterol 250-50mcg Diskus IH SCH ×3 (08:13→20:55)
[2017-10-17] MEDS: Cholecalciferol 1,000 INTLU TAB PO SCH (08:17)
--- NOTE | 2017-10-17 10:01 | MRI ---
Date of service: 10/17/2017 PROCEDURE: MRI BRAIN WITHOUT CONTRAST HISTORY: previous strokes with vomiting with HTN COMPARISON: Noncontrast head CT from 10/16/2017. TECHNIQUE: Multiplanar, multisequence MR images of the brain were obtained without intravenous contrast enhancement. FINDINGS: HEMORRHAGE: None DWI: No evidence of an acute or early subacute infarction. BRAIN PARENCHYMA: There is a chronic infarction in the left posterior frontal lobe and old infarctions in the right posterior frontal lobe, right posterior temporal lobe and left occipital lobe. There are moderate chronic microangiopathic changes. There is no mass, mass effect or abnormal extra-axial fluid collection. There is a partially empty sella, otherwise the midline sagittal structures are normal. VENTRICLES: There is moderate age-related global parenchymal volume loss and proportionate enlargement of the ventricles and cortical sulci. CRANIUM: There is normal bone marrow signal pattern. ORBITS: Grossly unremarkable. PARANASAL SINUSES/MASTOIDS: Mild mucosal thickening in the paranasal sinuses and moderate left mastoid effusion. VASCULAR SYSTEM: There are normal signal voids in the larger intracranial arteries. OTHER FINDINGS: None. IMPRESSION: No acute intracranial abnormality. Multifocal bilateral MCA territory and left HEARING DOG TRAINER territory infarctions, the largest in the left frontal lobe. Moderate chronic microangiopathic changes and moderate age-related global parenchymal volume loss. Left mastoid effusion.
--- NOTE | 2017-10-17 10:35 | CT ---
Date of service: 10/16/2017 PROCEDURE: CT HEAD WITHOUT CONTRAST. HISTORY: vomiting, HTN, history of CVA COMPARISON: 09/17/2017. TECHNIQUE: Axial computed tomography images were obtained through the head/brain without intravenous contrast. Radiation dose: Total exam DLP = 882.23 mGy-cm. This CT exam was performed using one or more of the following dose reduction techniques: Automated exposure control, adjustment of the mA and/or kV according to patient size, and/or use of iterative reconstruction technique. FINDINGS: HEMORRHAGE: No intracranial hemorrhage. BRAIN: There is a chronic infarction in the left frontal lobe. There are old infarctions in the right posterior temporal lobe and left occipital lobe. There are moderate chronic microangiopathic changes. There is no mass, mass effect or abnormal extra-axial fluid collection. There are coarse atherosclerotic calcifications in the cavernous carotid arteries. VENTRICLES: There is mild age-related global parenchymal volume loss and proportionate enlargement of the ventricles and cortical sulci. CALVARIUM: The skull base and calvarium are normal. PARANASAL SINUSES: Predominantly clear. MASTOID AIR CELLS: Predominantly clear. OTHER FINDINGS: None. IMPRESSION: No acute intracranial abnormality. Old bilateral MCA and left MARKETING INFORMATION COORDINATOR territory infarctions, largest in the left frontal lobe. Moderate chronic microangiopathic changes and mild age-related global parenchymal volume loss. A preliminary report was provided by [employer].
[2017-10-17] MEDS: Potassium Chloride 20 mEq ER Tab PO SCH (12:43)
--- NOTE | 2017-10-17 16:39 | CARD ---
APPROVED REPORT Date of service: 10/17/2017 EXAM: Two-dimensional and M-mode echocardiogram with Doppler and color Doppler. Other Information Quality : AverageRhythm : NSR INDICATION Elevated Pro BNP 2D DIMENSIONS IVSd1.32 (0.7-1.1cm)LVDd3.03 (3.9-5.9cm) LVOT Diameter1.83 (1.8-2.4cm)PWd1.37 (0.7-1.1cm) IVSs1.95 (0.8-1.2cm)LVDs2.46 (2.5-4.0cm) FS (%) 18.9 %PWs1.50 (0.8-1.2cm) M-Mode DIMENSIONS Left Atrium (MM)3.12 (2.5-4.0cm)Aortic Root3.06 (2.2-3.7cm) Aortic Cusp Exc.1.82 (1.5-2.0cm) Aortic Valve AoV Peak Yzfysvkq183.9cm/sAoV VTI25.2cmAO Peak GR.6mmHg LVOT Peak Orblcxdz36.5cm/sLVOT VTI19.86cmAO Mean GR.3mmHg Mitral Valve MV E Gdfssqae68.3cm/sMV DECEL [id number] A Wjvbmgpn851.5cm/s MV JJZ10euN/A ratio0.7MVA (PHT)3.00cm2 TDI Lateral E' Peak V4.89cm/sMedial E' Peak V4.89cm/sE/Lateral E'14.4 E/Medial E'14.4 Tricuspid Valve [id number] LEFT VENTRICLE The left ventricle is normal size. There is mild concentric left ventricular hypertrophy. The left ventricular ejection fraction is within the normal range. The Ejection Fraction is 60-65%. No regional wall motion abnormalities noted.. Transmitral Doppler flow pattern is Grade I-abnormal relaxation pattern. No left ventricle thrombus noted on this study. There is no ventricular septal defect visualized. There is no mass noted in the left ventricle. RIGHT VENTRICLE The right ventricle is normal size. There is normal right ventricular wall thickness. The right ventricular systolic function is normal. ATRIA The left atrium size is normal. The right atrium size is normal. The interatrial septum is intact with no evidence for an atrial septal defect. AORTIC VALVE The aortic valve is normal in structure. No aortic regurgitation is present. There is no aortic valvular stenosis. MITRAL VALVE The mitral valve is normal in structure. There is no mitral valve stenosis. There is no mitral valve regurgitation noted. TRICUSPID VALVE The tricuspid valve is normal in structure. There is mild tricuspid valve regurgitation noted. PASP within normal limits PULMONIC VALVE The pulmonary valve is normal in structure. There is no pulmonic valvular regurgitation. GREAT VESSELS The aortic root is normal in size. The ascending aorta is normal in size. The pulmonary artery is normal. The IVC is normal in size and collapses >50% with inspiration. PERICARDIAL EFFUSION There is no pericardial effusion. <Conclusion> Mild TR with normal PASP Mild LVH Normal LV systolic function with doppler hemodynamics consistent with abnormal relaxation The Ejection Fraction is 60-65%.
--- NOTE | 2017-10-17 17:27 | CP.PCM.HP ---
<MaikelDino - Last Filed: 10/17/17 17:22> History of Present Illness - History of Present Illness History of Present Illness: 82 y/o M with a PMHx of CAD, CHF, COPD, CVA, HTN and DM2 was admitted for evaluation of elevated BP since last night. Pt recently had a CVA 2 months ago and was d/c home on 09/12/17 after acute rehab. Pt also complained of nausea last night. Today, pt reports feeling well, with no acute complaints. Pt afebrile overnight and tolerating PO. Pt denies headache, fever, dizziness, chest pain, SOB, nausea, vomiting, abdominal pain or peripheral edema. Allergic to Morphine. Present on Admission - Present on Admission Any Indicators Present on Admission: No Review of Systems - Constitutional Constitutional: absent: Anorexia, Chills, Night Sweats - EENT Eyes: absent: Loss of Vision Nose/Mouth/Throat: absent: Neck Pain, Neck Mass - Cardiovascular Cardiovascular: absent: Chest Pain, Dyspnea - Respiratory Respiratory: absent: Cough, Dyspnea, Hemoptysis - Gastrointestinal Gastrointestinal: absent: Abdominal Pain, Belching, Diarrhea - Neurological Neurological: absent: Syncope, Vertigo Past Patient History - Infectious Disease Hx of Infectious Diseases: None - Tetanus Immunizations Tetanus Immunization: Unknown - Past Medical History & Family History Past Medical History?: Yes - Past Social History Smoking Status: Former Smoker - CARDIAC Hx Cardiac Disorders: Yes Hx Congestive Heart Failure: Yes Hx Hypercholesterolemia: Yes Hx Hypertension: Yes - PULMONARY Hx Respiratory Disorders: Yes Hx Chronic Obstructive Pulmonary Disease (COPD): Yes - NEUROLOGICAL Hx Neurological Disorder: Yes HX Cerebrovascular Accident: Yes Hx Transient Ischemic Attacks (TIA): Yes - HEENT Hx HEENT Problems: Yes Other/Comment: left eye diabetic retinopathy - RENAL Hx Chronic Kidney Disease: Yes Hx Dialysis: No - ENDOCRINE/METABOLIC Hx Endocrine Disorders: Yes Hx Diabetes Mellitus Type 2: Yes - HEMATOLOGICAL/ONCOLOGICAL Hx Blood Disorders: Yes Hx Cancer: Yes (Colon) - INTEGUMENTARY Hx Dermatological Problems: No - MUSCULOSKELETAL/RHEUMATOLOGICAL Hx Musculoskeletal Disorders: Yes Hx Arthritis: Yes Hx Falls: Yes - GASTROINTESTINAL Hx Gastrointestinal Disorders: No - GENITOURINARY/GYNECOLOGICAL Hx Genitourinary Disorders: Yes Hx Prostate Problems: Yes - PSYCHIATRIC Hx Psychophysiologic Disorder: Yes Hx Substance Use: No - SURGICAL HISTORY Hx Surgeries: Yes Hx Coronary Stent: Yes (x4) - ANESTHESIA Hx Anesthesia: Yes Hx Anesthesia Reactions: No Hx Malignant Hyperthermia: No Meds Allergies/Adverse Reactions: Allergies Allergy/AdvReac Type Severity Reaction Status Date / Time morphine Allergy VOMITING Verified 10/16/17 16:04 Physical Exam - Constitutional Appears: No Acute Distress - Head Exam Head Exam: ATRAUMATIC, NORMAL INSPECTION - Eye Exam Eye Exam: EOMI - ENT Exam ENT Exam: Mucous Membranes Dry - Neck Exam Neck exam: Positive for: Full Rom, Normal Inspection. Negative for: Meningismus - Respiratory Exam Respiratory Exam: Clear to Auscultation Bilateral, NORMAL BREATHING PATTERN - Cardiovascular Exam Cardiovascular Exam: +S1, +S2 - GI/Abdominal Exam GI & Abdominal Exam: Normal Bowel Sounds, Soft. absent: Distended, Guarding, Tenderness - Extremities Exam Extremities exam: Positive for: full ROM. Negative for: calf tenderness Results - Vital Signs Recent Vital Signs: Last Vital Signs Temp 97.3 F L 10/17/17 16:23 Pulse 65 10/17/17 16:23 Resp 18 10/17/17 16:23 BP 152/71 H 10/17/17 16:23 Pulse Ox 96 10/17/17 16:23 - Labs Result Diagrams: 10/16/17 17:22 10/16/17 17:22 Labs: Laboratory Results - last 24 hr 10/16/17 10/16/17 10/16/17 17:22 17:22 17:22 WBC 6.9 RBC 3.36 L Hgb 10.4 L Hct 30.9 L MCV 91.9 MCH 30.9 MCHC 33.7 RDW 14.2 Plt Count 368 MPV 8.9 Neut % (Auto) 70.2 Lymph % (Auto) 16.4 L [place] % (Auto) 9.1 Eos % (Auto) 3.6 Baso % (Auto) 0.7 Neut # (Auto) 4.9 Lymph # (Auto) 1.1 [place] # (Auto) 0.6 Eos # (Auto) 0.3 Baso # (Auto) 0.0 PT 11.7 INR 1.1 APTT 29.0 Sodium 136 Potassium 4.4 Chloride 100 Carbon Dioxide 28 Anion Gap 12 BUN 23 H Creatinine 1.3 Est GFR ( Amer) > 60 Est GFR (Non-Af Amer) 53 POC Glucose (mg/dL) Random Glucose 255 H Hemoglobin A1c Calcium 9.5 Troponin I 0.0710 NT-Pro-B Natriuret Pep 4690 H Triglycerides Cholesterol LDL Cholesterol Direct HDL Cholesterol TSH 3rd Generation Urine Color Urine Clarity Urine pH Ur Specific [place] Urine Protein Urine Glucose (UA) Urine Ketones Urine Blood Urine Nitrate Urine Bilirubin Urine Urobilinogen Ur Leukocyte Esterase Urine RBC (Auto) Urine Microscopic WBC Ur Squamous Epith Cells Urine Bacteria Hyaline Casts 10/16/17 10/16/17 10/17/17 17:50 22:46 04:54 WBC RBC Hgb Hct MCV MCH MCHC RDW Plt Count MPV Neut % (Auto) Lymph % (Auto) [place] % (Auto) Eos % (Auto) Baso % (Auto) Neut # (Auto) Lymph # (Auto) [place] # (Auto) Eos # (Auto) Baso # (Auto) PT INR APTT Sodium Potassium Chloride Carbon Dioxide Anion Gap BUN Creatinine Est GFR ( Amer) Est GFR (Non-Af Amer) POC Glucose (mg/dL) 205 H 171 H Random Glucose Hemoglobin A1c Calcium Troponin I NT-Pro-B Natriuret Pep Triglycerides Cholesterol LDL Cholesterol Direct HDL Cholesterol TSH 3rd Generation Urine Color Yellow Urine Clarity Clear Urine pH 7.0 Ur Specific [place] 1.011 Urine Protein 100 Urine Glucose (UA) 150 Urine Ketones Negative Urine Blood Negative Urine Nitrate Negative Urine Bilirubin Negative Urine Urobilinogen 0.2-1.0 Ur Leukocyte Esterase Neg Urine RBC (Auto) 3 Urine Microscopic WBC 1 Ur Squamous Epith Cells 1 Urine Bacteria Occ H Hyaline Casts 11-20 H 10/17/17 10/17/17 10/17/17 11:23 12:41 12:41 WBC RBC Hgb Hct MCV MCH MCHC RDW Plt Count MPV Neut % (Auto) Lymph % (Auto) [place] % (Auto) Eos % (Auto) Baso % (Auto) Neut # (Auto) Lymph # (Auto) [place] # (Auto) Eos # (Auto) Baso # (Auto) PT INR APTT Sodium Potassium Chloride Carbon Dioxide Anion Gap BUN Creatinine Est GFR ( Amer) Est GFR (Non-Af Amer) POC Glucose (mg/dL) 215 H Random Glucose Hemoglobin A1c 7.2 H D Calcium Troponin I NT-Pro-B Natriuret Pep Triglycerides 165 H Cholesterol 130 LDL Cholesterol Direct 57 HDL Cholesterol 32 TSH 3rd Generation 1.51 Urine Color Urine Clarity Urine pH Ur Specific [place] Urine Protein Urine Glucose (UA) Urine Ketones Urine Blood Urine Nitrate Urine Bilirubin Urine Urobilinogen Ur Leukocyte Esterase Urine RBC (Auto) Urine Microscopic WBC Ur Squamous Epith Cells Urine Bacteria Hyaline Casts 10/17/17 15:49 WBC RBC Hgb Hct MCV MCH MCHC RDW Plt Count MPV Neut % (Auto) Lymph % (Auto) [place] % (Auto) Eos % (Auto) Baso % (Auto) Neut # (Auto) Lymph # (Auto) [place] # (Auto) Eos # (Auto) Baso # (Auto) PT INR APTT Sodium Potassium Chloride Carbon Dioxide Anion Gap BUN Creatinine Est GFR ( Amer) Est GFR (Non-Af Amer) POC Glucose (mg/dL) 180 H Random Glucose Hemoglobin A1c Calcium Troponin I NT-Pro-B Natriuret Pep Triglycerides Cholesterol LDL Cholesterol Direct HDL Cholesterol TSH 3rd Generation Urine Color Urine Clarity Urine pH Ur Specific [place] Urine Protein Urine Glucose (UA) Urine Ketones Urine Blood Urine Nitrate Urine Bilirubin Urine Urobilinogen Ur Leukocyte Esterase Urine RBC (Auto) Urine Microscopic WBC Ur Squamous Epith Cells Urine Bacteria Hyaline Casts Assessment & Plan - Assessment and Plan (Free Text) Assessment: 82 y/o M with a PMHx of CAD, CHF, COPD, recent CVA, HTN and diabetes admitted for evaluation of alarming hypertension. ->206/82 mmHg at ED, ->Pro-BNP was found to be elevated ~4690. Possible acute CHF. --Continue with Carvedilol, Amlodipine and Lisinopril. --Lasix was increased to 60mg IV daily. --Potassium Cl 20mEq ordered . --cardiac monitoring. --Lipid panel, CMP, HbA1c and TSH were ordered. F/U results --Echocardiogram ordered. --SCD's for DVT prophylaxis. --Plan as ordered. - Date & Time Date: 10/17/17 Time: 12:00 <Riley Leggett - Last Filed: 10/20/17 18:12> Results - Vital Signs Recent Vital Signs: Last Vital Signs Temp 97.5 F L 10/20/17 17:13 Pulse 69 10/20/17 17:13 Resp 18 10/20/17 17:13 BP 156/66 H 10/20/17 17:13 Pulse Ox 98 10/20/17 17:13 - Labs Result Diagrams: 10/20/17 15:00 10/20/17 06:20 Labs: Laboratory Results - last 24 hr 10/20/17 10/20/17 10/20/17 06:20 06:20 15:00 WBC 16.0 H D 21.0 H RBC 3.39 L 3.22 L Hgb 10.5 L 9.9 L Hct 31.1 L 29.6 L MCV 91.6 92.0 MCH 31.0 30.6 MCHC 33.9 33.3 RDW 14.6 H 14.3 Plt Count 344 337 MPV 8.8 9.0 Neut % (Auto) 79.9 H 84.0 H Lymph % (Auto) 7.7 L 5.8 L [place] % (Auto) 11.2 H 9.7 Eos % (Auto) 0.9 0.2 Baso % (Auto) 0.3 0.3 Neut # (Auto) 12.8 H 17.6 H Lymph # (Auto) 1.2 1.2 [place] # (Auto) 1.8 H 2.0 H Eos # (Auto) 0.1 0.0 Baso # (Auto) 0.0 0.1 Neutrophils % (Manual) 90 H Band Neutrophils % 2 Lymphocytes % (Manual) 3 L Monocytes % (Manual) 5 Platelet Estimate Normal Large Platelets Present Poikilocytosis (manual Slight Anisocytosis (manual) Slight Ovalocytes Slight Helmet Cells Slight Schistocytes Slight Sodium 139 Potassium 4.4 Chloride 104 Carbon Dioxide 29 Anion Gap 10 BUN 24 H Creatinine 1.9 H Est GFR ( Amer) 41 Est GFR (Non-Af Amer) 34 Random Glucose 158 H Calcium 9.6 Total Bilirubin 0.5 AST 23 ALT 24 Alkaline Phosphatase 143 H D NT-Pro-B Natriuret Pep 2120 H Total Protein 6.9 Albumin 3.7 Globulin 3.3 Albumin/Globulin Ratio 1.1 Assessment & Plan - Assessment and Plan (Free Text) Plan: I was present during evaluation and discussed with Dr Ko re plans of care and mgt. Riley Leggett M.D.
--- NOTE | 2017-10-17 18:20 | CP.PCM.CON ---
History of Present Illness - History of Present Illness History of Present Illness: Israel Banegas, an 82 year old male with past medical history of CAD, CHF, COPD, CVA, HTN and diabetes, who presents to the emergency department for evaluation of high blood pressure onset since last night associated with mild vomiting. Patient was recently hospitalized for x6 weeks due to stroke with right sided weakness with no obvious residual and was discharge on September 12. Since then patient has been compliant with medications and has had no symptoms. However, patient states that he felt like his blood pressure was high last night , and this morning he had a few episodes of mild vomiting and nausea. He is able to tolerate food intermittently since. Upon arrival to ED patient's blood pressure was high, no neurological deficits, no weakness, numbness or slurred speech. Patient is AOEX3 with no fever or headache. His family was concerned because last time he presented with stroke he was also vomiting and blood pressure was high. No further medical complaints. Past Patient History - Infectious Disease Hx of Infectious Diseases: None - Tetanus Immunizations Tetanus Immunization: Unknown - Past Medical History & Family History Past Medical History?: Yes - Past Social History Smoking Status: Former Smoker - CARDIAC Hx Cardiac Disorders: Yes Hx Congestive Heart Failure: Yes Hx Hypercholesterolemia: Yes Hx Hypertension: Yes - PULMONARY Hx Respiratory Disorders: Yes Hx Chronic Obstructive Pulmonary Disease (COPD): Yes - NEUROLOGICAL Hx Neurological Disorder: Yes HX Cerebrovascular Accident: Yes Hx Transient Ischemic Attacks (TIA): Yes - HEENT Hx HEENT Problems: Yes Other/Comment: left eye diabetic retinopathy - RENAL Hx Chronic Kidney Disease: Yes Hx Dialysis: No - ENDOCRINE/METABOLIC Hx Endocrine Disorders: Yes Hx Diabetes Mellitus Type 2: Yes - HEMATOLOGICAL/ONCOLOGICAL Hx Blood Disorders: Yes Hx Cancer: Yes (Colon) - INTEGUMENTARY Hx Dermatological Problems: No - MUSCULOSKELETAL/RHEUMATOLOGICAL Hx Musculoskeletal Disorders: Yes Hx Arthritis: Yes Hx Falls: Yes - GASTROINTESTINAL Hx Gastrointestinal Disorders: No - GENITOURINARY/GYNECOLOGICAL Hx Genitourinary Disorders: Yes Hx Prostate Problems: Yes - PSYCHIATRIC Hx Psychophysiologic Disorder: Yes Hx Substance Use: No - SURGICAL HISTORY Hx Surgeries: Yes Hx Coronary Stent: Yes (x4) - ANESTHESIA Hx Anesthesia: Yes Hx Anesthesia Reactions: No Hx Malignant Hyperthermia: No Meds Allergies/Adverse Reactions: Allergies Allergy/AdvReac Type Severity Reaction Status Date / Time morphine Allergy VOMITING Verified 08/15/18 16:04 - Medications Medications: Current Medications Albuterol Sulfate (Albuterol 0.083% Inhal Bere (2.5 Mg/3 Ml) Ud) 2.5 mg IH Q6 PRN PRN Reason: Shortness of Breath Amlodipine Besylate (Norvasc) 10 mg PO DAILY [facility] Last Admin: 10/17/17 08:15 Dose: 10 mg Aspirin (Aspirin Chewable) 81 mg PO DAILY [facility] Last Admin: 10/17/17 08:17 Dose: 81 mg Atorvastatin Calcium (Lipitor) 40 mg PO DAILY [facility] Last Admin: 10/17/17 08:16 Dose: 40 mg Carvedilol (Coreg) 12.5 mg PO Q12 [facility] Last Admin: 10/17/17 08:15 Dose: 12.5 mg Cholecalciferol (Vitamin D) 2,000 intlu PO DAILY [facility] Last Admin: 10/17/17 08:17 Dose: 2,000 intlu Clopidogrel Bisulfate (Plavix) 75 mg PO DAILY [facility] Last Admin: 10/17/17 08:17 Dose: 75 mg Ferrous Sulfate (Feosol) 325 mg PO TID [facility] Last Admin: 10/17/17 16:45 Dose: 325 mg Finasteride (Proscar) 5 mg PO DAILY [facility] Last Admin: 10/17/17 08:15 Dose: 5 mg Furosemide (Lasix) 60 mg IV DAILY [facility] Last Admin: 10/17/17 12:28 Dose: 60 mg Insulin Human Lispro (Humalog) 0 units SC ACCU-CHECK [facility] PRN Reason: Protocol Last Admin: 10/17/17 16:42 Dose: 2 units Insulin Human Lispro (Humalog) 20 units SC BID [facility] Last Admin: 10/17/17 16:43 Dose: 20 units Latanoprost (Xalatan Opht) 1 drop OU HS [facility] Last Admin: 10/17/17 00:06 Dose: 1 drop Lisinopril (Zestril) 20 mg PO DAILY [facility] Last Admin: 10/17/17 08:16 Dose: 20 mg Potassium Chloride (K-Dur 20 Meq Er Tab) 20 meq PO DAILY [facility] Last Admin: 10/17/17 12:43 Dose: 20 meq Fluticasone/Salmeterol (Advair Diskus 250/50) 1 puff IH Q12 [facility] Last Admin: 10/17/17 08:13 Dose: 1 puff Tamsulosin HCl (Flomax) 0.8 mg PO HS [facility] Last Admin: 10/17/17 00:00 Dose: 0.8 mg Results - Vital Signs Recent Vital Signs: Last Vital Signs Temp 97.3 F L 10/17/17 16:23 Pulse 65 10/17/17 16:23 Resp 18 10/17/17 16:23 BP 152/71 H 10/17/17 16:23 Pulse Ox 96 10/17/17 16:23 - Labs Result Diagrams: 10/16/17 17:22 10/16/17 17:22 Labs: Laboratory Results - last 24 hr 10/16/17 10/16/17 10/16/17 17:22 17:50 22:46 POC Glucose (mg/dL) 205 H Hemoglobin A1c Troponin I 0.0710 NT-Pro-B Natriuret Pep 4690 H Triglycerides Cholesterol LDL Cholesterol Direct HDL Cholesterol TSH 3rd Generation Urine Color Yellow Urine Clarity Clear Urine pH 7.0 Ur Specific [place] 1.011 Urine Protein 100 Urine Glucose (UA) 150 Urine Ketones Negative Urine Blood Negative Urine Nitrate Negative Urine Bilirubin Negative Urine Urobilinogen 0.2-1.0 Ur Leukocyte Esterase Neg Urine RBC (Auto) 3 Urine Microscopic WBC 1 Ur Squamous Epith Cells 1 Urine Bacteria Occ H Hyaline Casts 11-20 H 10/17/17 10/17/17 10/17/17 04:54 11:23 12:41 POC Glucose (mg/dL) 171 H 215 H Hemoglobin A1c Troponin I NT-Pro-B Natriuret Pep Triglycerides 165 H Cholesterol 130 LDL Cholesterol Direct 57 HDL Cholesterol 32 TSH 3rd Generation 1.51 Urine Color Urine Clarity Urine pH Ur Specific [place] Urine Protein Urine Glucose (UA) Urine Ketones Urine Blood Urine Nitrate Urine Bilirubin Urine Urobilinogen Ur Leukocyte Esterase Urine RBC (Auto) Urine Microscopic WBC Ur Squamous Epith Cells Urine Bacteria Hyaline Casts 10/17/17 10/17/17 12:41 15:49 POC Glucose (mg/dL) 180 H Hemoglobin A1c 7.2 H D Troponin I NT-Pro-B Natriuret Pep Triglycerides Cholesterol LDL Cholesterol Direct HDL Cholesterol TSH 3rd Generation Urine Color Urine Clarity Urine pH Ur Specific [place] Urine Protein Urine Glucose (UA) Urine Ketones Urine Blood Urine Nitrate Urine Bilirubin Urine Urobilinogen Ur Leukocyte Esterase Urine RBC (Auto) Urine Microscopic WBC Ur Squamous Epith Cells Urine Bacteria Hyaline Casts Assessment & Plan - Assessment and Plan (Free Text) Assessment: mri brain: read as no acute stroke. plan: 1. continue aspirin 2. continue strict bp control. Thank you Dr schmitt
--- NOTE | 2017-10-17 18:52 | CARD ---
APPROVED REPORT Date of service: 10/17/2017 <Conclusion> Sinus bradycardia Inferior infarct, age undetermined ST & T wave abnormality, consider lateral ischemia Abnormal ECG
[2017-10-18] MEDS: Insulin Lispro (humaLOG) 100 Units/ml Inj SC SCH ×5 (06:14→22:08)
[2017-10-18] MEDS: Potassium Chloride 20 mEq ER Tab PO SCH (08:50)
[2017-10-18] MEDS: Fluticasone-Salmeterol 250-50mcg Diskus IH SCH ×2 (08:52→21:23)
[2017-10-18] MEDS: Cholecalciferol 1,000 INTLU TAB PO SCH (08:52)
--- NOTE | 2017-10-18 09:42 | CP.PCM.PN ---
<Jatinder Metz - Last Filed: 10/18/17 09:45> Subjective - Date & Time of Evaluation Date of Evaluation: 10/18/17 Time of Evaluation: 09:38 - Subjective Subjective: Mr. Fred Banegas was seen and examined at the bedside. He occasionally utter clear words but utilizes non verbal cues such as nodding and shaking his head. He denies any headache, dizziness with left side weakness which is the residual from his previous CVA. There was no untoward events overnight. Objective - Vital Signs/Intake and Output Vital Signs (last 24 hours): Temp Pulse Resp BP Pulse Ox 97.6 F 77 18 157/70 H 100 10/18/17 08:00 10/18/17 08:51 10/18/17 08:00 10/18/17 08:51 10/18/17 08:00 - Medications Medications: Current Medications Albuterol Sulfate (Albuterol 0.083% Inhal Bere (2.5 Mg/3 Ml) Ud) 2.5 mg IH Q6 PRN PRN Reason: Shortness of Breath Amlodipine Besylate (Norvasc) 10 mg PO DAILY [facility] Last Admin: 10/18/17 08:51 Dose: 10 mg Aspirin (Aspirin Chewable) 81 mg PO DAILY [facility] Last Admin: 10/18/17 08:48 Dose: 81 mg Atorvastatin Calcium (Lipitor) 40 mg PO DAILY [facility] Last Admin: 10/18/17 08:51 Dose: 40 mg Carvedilol (Coreg) 12.5 mg PO Q12 [facility] Last Admin: 10/18/17 08:47 Dose: 12.5 mg Cholecalciferol (Vitamin D) 2,000 intlu PO DAILY [facility] Last Admin: 10/18/17 08:52 Dose: 2,000 intlu Clopidogrel Bisulfate (Plavix) 75 mg PO DAILY [facility] Last Admin: 10/18/17 08:51 Dose: 75 mg Ferrous Sulfate (Feosol) 325 mg PO TID [facility] Last Admin: 10/18/17 08:48 Dose: 325 mg Finasteride (Proscar) 5 mg PO DAILY [facility] Last Admin: 10/17/17 08:15 Dose: 5 mg Furosemide (Lasix) 60 mg IV DAILY [facility] Last Admin: 10/18/17 08:50 Dose: 60 mg Insulin Human Lispro (Humalog) 0 units SC ACCU-CHECK [facility] PRN Reason: Protocol Last Admin: 10/18/17 06:14 Dose: Not Given Insulin Human Lispro (Humalog) 20 units SC BID [facility] Last Admin: 10/18/17 08:49 Dose: 20 units Latanoprost (Xalatan Opht) 1 drop OU HS [facility] Last Admin: 10/17/17 21:02 Dose: 1 drop Lisinopril (Zestril) 20 mg PO DAILY [facility] Last Admin: 10/18/17 08:48 Dose: 20 mg Potassium Chloride (K-Dur 20 Meq Er Tab) 20 meq PO DAILY [facility] Last Admin: 10/18/17 08:50 Dose: 20 meq Fluticasone/Salmeterol (Advair Diskus 250/50) 1 puff IH Q12 [facility] Last Admin: 10/18/17 08:52 Dose: 1 puff Tamsulosin HCl (Flomax) 0.8 mg PO HS [facility] Last Admin: 10/17/17 21:00 Dose: 0.8 mg - Labs Labs: 10/16/17 17:22 10/16/17 17:22 PT 11.7 Seconds (9.8-13.1) 10/16/17 17:22 INR 1.1 10/16/17 17:22 APTT 29.0 Seconds (25.6-37.1) 10/16/17 17:22 - Constitutional Appears: No Acute Distress - Head Exam Head Exam: NORMAL INSPECTION - Eye Exam Pupil Exam: PERRL - Neurological Exam Neurological Exam: Alert, Awake Neuro motor strength exam: Left Upper Extremity: 3, Right Upper Extremity: 4, Left Lower Extremity: 3, Right Lower Extremity: 4 Additional comments: awake, follows commands sensation is intact Assessment and Plan (1) HTN (hypertension) Assessment & Plan: Continue all current medical regimen. Recommend hydration,blood pressure control , and treat any electrolyte abnormalities. Status: Acute <Schmitt,Gautami - Last Filed: 10/22/17 12:49> Objective - Vital Signs/Intake and Output Vital Signs (last 24 hours): Temp Pulse Resp BP Pulse Ox 97.2 F L 62 18 161/68 H 98 10/22/17 08:00 10/22/17 09:00 10/22/17 08:00 10/22/17 08:57 10/22/17 08:00 - Medications Medications: Current Medications Albuterol Sulfate (Albuterol 0.083% Inhal Bere (2.5 Mg/3 Ml) Ud) 2.5 mg IH Q6 PRN PRN Reason: Shortness of Breath Amlodipine Besylate (Norvasc) 10 mg PO DAILY [facility] Last Admin: 10/22/17 08:55 Dose: 10 mg Atorvastatin Calcium (Lipitor) 40 mg PO HS [facility] Last Admin: 10/21/17 22:35 Dose: 40 mg Carvedilol (Coreg) 25 mg PO Q12 [facility] Last Admin: 10/22/17 12:22 Dose: Not Given Cholecalciferol (Vitamin D) 2,000 intlu PO DAILY [facility] Last Admin: 10/22/17 08:55 Dose: 2,000 intlu Clopidogrel Bisulfate (Plavix) 75 mg PO DAILY [facility] Last Admin: 10/22/17 08:54 Dose: 75 mg Docusate Sodium (Colace) 100 mg PO HS [facility] Last Admin: 10/21/17 22:23 Dose: 100 mg Enoxaparin Sodium (Lovenox) 30 mg SC [facility] PRN Reason: Protocol Last Admin: 10/21/17 22:24 Dose: 30 mg Escitalopram Oxalate (Lexapro) 5 mg PO DAILY [facility] Last Admin: 10/22/17 08:56 Dose: 5 mg Finasteride (Proscar) 5 mg PO DAILY [facility] Last Admin: 10/22/17 08:54 Dose: 5 mg Furosemide (Lasix) 20 mg PO DAILY [facility] Ceftriaxone Sodium 2 gm/ (Sodium Chloride) 100 mls @ 100 mls/hr IVPB DAILY [facility] PRN Reason: Protocol Last Admin: 10/22/17 08:54 Dose: 100 mls/hr Insulin Human Lispro (Humalog) 0 units SC ACCU-CHECK [facility] PRN Reason: Protocol Last Admin: 10/22/17 12:24 Dose: 2 units Latanoprost (Xalatan Opht) 1 drop OU HS [facility] Last Admin: 10/21/17 22:24 Dose: 1 drop Lisinopril (Zestril) 20 mg PO DAILY [facility] Last Admin: 10/22/17 08:55 Dose: 20 mg Lisinopril (Zestril) 40 mg PO DAILY [facility] Pantoprazole Sodium (Protonix Inj) 40 mg IVP DAILY [facility] Last Admin: 10/22/17 08:54 Dose: 40 mg Potassium Chloride (K-Dur 20 Meq Er Tab) 20 meq PO DAILY [facility] Last Admin: 10/22/17 08:56 Dose: 20 meq Sitagliptin Phosphate (Januvia) 50 mg PO DAILY [facility] Last Admin: 10/22/17 08:54 Dose: 50 mg Tamsulosin HCl (Flomax) 0.8 mg PO HS [facility] Last Admin: 10/21/17 22:24 Dose: 0.8 mg - Labs Labs: 10/22/17 04:20 10/22/17 04:20 PT 11.7 Seconds (9.8-13.1) 10/16/17 17:22 INR 1.1 10/16/17 17:22 APTT 29.0 Seconds (25.6-37.1) 10/16/17 17:22 Assessment and Plan - Assessment and Plan (Free Text) Plan: Attestation: I examined the patient myself and found the neurological exam to be unchanged. Agree with the assessment and the plan that i assisted in formulating. Thank you Dr. schmitt
[2017-10-18] MEDS ORDERED: Sodium Chloride 0.9% 500 ML IV SCH (11:00)
[2017-10-18 11:19] LABS: BASO % 0.5 % (0.0-2.0); EOS # 0.3 K/uL (0.0-0.7); EOS % 3.4 % (0.0-4.0); HEMOGLOBIN 9.6 g/dL (12.0-18.0); LYMPH # 1.3 K/uL (1.0-4.3); LYMPH % 15.8 % (20.0-40.0); MEAN CELL VOLUME 91.1 fl (80.0-94.0); MEAN CORPUSCULAR HEMOGLOBIN 31.3 pg (27.0-31.0); MEAN CORPUSCULAR HGB CONC 34.4 g/dL (33.0-37.0); MONO # 0.9 K/uL (0.0-0.8); MONO % 10.8 % (0.0-10.0); NEUT # 5.9 K/uL (1.8-7.0); NEUT % 69.5 % (50.0-75.0); RBC 3.05 Mil/uL (4.40-5.90); RED CELL DISTRIBUTION WIDTH 14.4 % (11.5-14.5); WHITE BLOOD COUNT 8.4 K/uL (4.8-10.8)
[2017-10-18 11:38] LABS: ALB/GLOB RATIO 1.1 (1.0-2.1); ALBUMIN 3.3 g/dL (3.5-5.0); CALCIUM 9.1 mg/dL (8.4-10.2)
[2017-10-18] MEDS ORDERED: Lactulose 10 gm/15 ml (Rectal Use) PR ONE (12:06)
[2017-10-18] MEDS: Dextrose 5%/Lactated Ringer's 500 ML IV SCH ×2 (12:24→18:42)
--- NOTE | 2017-10-18 13:06 | PCM.RRT ---
<Miroslava Gonzalez - Last Filed: 10/18/17 14:15> DERRICK OPERATOR Nurse Assessment - Situation DERRICK OPERATOR Reason for Call: Hypotension - IV IV Inserted during DERRICK OPERATOR?: No - Respiratory Oxygen Delivery Method: Room Air - Ventilator Settings Ventilator Respiratory Rate Settin Ventilator Tidal Volume Settin - Medication Medications Administered During DERRICK OPERATOR: NS 500ml, bolus - Diagnostic Test Ordered EKG: Yes (Sinus lakshmi with rate of 58, no acute ST changes noted (10/17/17)) - Stat Labs Ordered DERRICK OPERATOR Stat Labs Ordered: CBC DERRICK OPERATOR Other Labs Ordered: CMP CPR started during DERRICK OPERATOR?: No - Vital Signs Vital Signs: Initial VS BP 89/50's HR 52 RR 16 O2 97% RA - Vital Signs at end of DERRICK OPERATOR Vital Signs at end of DERRICK OPERATOR: BP 114/57 GR 55 RR 17 T 98 O2 100 on RA I.Reason for DERRICK OPERATOR - A) Acute Change in Patient: (Select all that apply): Staff member or family is worried about patient - Neurological Status (Select all that apply): Alert, Responsive - Constitutional Appears: No Acute Distress - Head Head Exam: NORMAL INSPECTION - Respiratory Exam Respiratory Exam: Clear to Ausculation Bilateral, NORMAL BREATHING PATTERN. absent: Wheezes - Cardiovascular Exam Cardiovascular Exam: REGULAR RHYTHM, +S1, +S2 - GI/Abdominal Exam GI & Abdominal Exam: Soft, Normal Bowel Sounds. absent: Tenderness - Neurological Exam Neurological Exam: Alert, Awake - Extremities Exam Extremities Exam: absent: Calf Tenderness, Pedal Edema Plan - Assessment of Findings&Treatment Plan 82 YO male with PMHx of CAD, CHF, COPD, CVA, HTN and DM2 was admitted for elevated BP. DERRICK OPERATOR was called this AM by RN for hypotension. DERRICK OPERATOR team arrived by bedside with Dr. Bass. Bp on arrival was 89/55, 500ml of IV NS was ordered and started. Pt was alert awake, NAD. States that he is feeling fatigue, denies chest pain, dyspnea, weakness, headache n/v. Hypotension -likely iatrogenic 2/2 to BP med and Lasix -500ml bolus IVF -BP responded after IVFs -EKG no acute ST changes, sinus bradycardia (compared to 10/17/17) -cbc, cmp <Emma Bass - Last Filed: 10/22/17 09:09> DERRICK OPERATOR Nurse Assessment - Vital Signs Vital Signs: Rapid Response Vital Sign Blood Pressure 79/56 Pulse Rate 54 Respiratory Rate 18 Temperature 98.0 F Oxygen Saturation 100 - Vital Signs at end of DERRICK OPERATOR Vital Signs at end of DERRICK OPERATOR: Rapid Response End Vital Sign Blood Pressure 116/58 Pulse Rate 57 Respiratory Rate 18 Temperature 98.0 F O2 Sat by Pulse Oximetry 100 Attending/Attestation - Attestation I have personally seen and examined this patient.: Yes I have fully participated in the care of the patient.: Yes I have reviewed all pertinent clinical information, including history, physical exam and plan: Yes Notes (Text): 10/22/17 09:09 Seen, examined, and discussed with resident. Agree with findings and plan as above.
--- NOTE | 2017-10-18 14:09 | CP.PCM.PN ---
<Dino Ko - Last Filed: 10/18/17 14:10> Subjective - Date & Time of Evaluation Date of Evaluation: 10/18/17 Time of Evaluation: 10:00 - Subjective Subjective: 82 y/o M complains today of nausea and vomiting episode a few minutes after eating breakfast. Pt reports some abdominal discomfort. Pt denies chills, headache, chest pain, SOB, rash. According to patient, he has not had a bowel movement for a few days. Daughter by bedside conforms that last BM was more than 2 days ago and pt has always have problems with constipation. Pt afebrile overnight. Objective - Vital Signs/Intake and Output Vital Signs (last 24 hours): Temp Pulse Resp BP Pulse Ox 97.6 F 60 18 135/67 99 10/18/17 11:48 10/18/17 11:48 10/18/17 11:48 10/18/17 11:48 10/18/17 13:52 - Medications Medications: Current Medications Albuterol Sulfate (Albuterol 0.083% Inhal Bere (2.5 Mg/3 Ml) Ud) 2.5 mg IH Q6 PRN PRN Reason: Shortness of Breath Amlodipine Besylate (Norvasc) 10 mg PO DAILY [facility] Last Admin: 10/18/17 08:51 Dose: 10 mg Atorvastatin Calcium (Lipitor) 40 mg PO DAILY [facility] Last Admin: 10/18/17 08:51 Dose: 40 mg Carvedilol (Coreg) 12.5 mg PO Q12 [facility] Last Admin: 10/18/17 08:47 Dose: 12.5 mg Cholecalciferol (Vitamin D) 2,000 intlu PO DAILY [facility] Last Admin: 10/18/17 08:52 Dose: 2,000 intlu Clopidogrel Bisulfate (Plavix) 75 mg PO DAILY [facility] Last Admin: 10/18/17 08:51 Dose: 75 mg Docusate Sodium (Colace) 100 mg PO HS [facility] Finasteride (Proscar) 5 mg PO DAILY [facility] Last Admin: 10/18/17 11:14 Dose: 5 mg Sodium Chloride (Sodium Chloride 0.9%) 500 mls @ 999 mls/hr IV .Q31M [facility] Last Admin: 10/18/17 11:25 Dose: 999 mls/hr Dextrose/Lactated Ringer's (Dextrose 5%/Lactated Ringer's) 500 mls @ 80 mls/hr IV .Q6H15M [facility] Stop: 10/19/17 12:02 Last Admin: 10/18/17 12:24 Dose: 80 mls/hr Insulin Human Lispro (Humalog) 0 units SC ACCU-CHECK [facility] PRN Reason: Protocol Last Admin: 10/18/17 12:13 Dose: Not Given Latanoprost (Xalatan Opht) 1 drop OU HS [facility] Last Admin: 10/17/17 21:02 Dose: 1 drop Lisinopril (Zestril) 20 mg PO DAILY [facility] Last Admin: 10/18/17 08:48 Dose: 20 mg Pantoprazole Sodium (Protonix Inj) 40 mg IVP DAILY [facility] Last Admin: 10/18/17 13:09 Dose: 40 mg Potassium Chloride (K-Dur 20 Meq Er Tab) 20 meq PO DAILY [facility] Last Admin: 10/18/17 08:50 Dose: 20 meq Fluticasone/Salmeterol (Advair Diskus 250/50) 1 puff IH Q12 [facility] Last Admin: 10/18/17 08:52 Dose: 1 puff Sitagliptin Phosphate (Januvia) 25 mg PO DAILY [facility] Tamsulosin HCl (Flomax) 0.8 mg PO HS [facility] Last Admin: 10/17/17 21:00 Dose: 0.8 mg - Labs Labs: 10/18/17 11:14 10/18/17 11:14 PT 11.7 Seconds (9.8-13.1) 10/16/17 17:22 INR 1.1 10/16/17 17:22 APTT 29.0 Seconds (25.6-37.1) 10/16/17 17:22 - Constitutional Appears: No Acute Distress - Head Exam Head Exam: ATRAUMATIC, NORMAL INSPECTION - Eye Exam Eye Exam: EOMI, Normal appearance - ENT Exam ENT Exam: Mucous Membranes Dry - Neck Exam Neck Exam: Full ROM. absent: Meningismus - Respiratory Exam Respiratory Exam: NORMAL BREATHING PATTERN. absent: Rhonchi, Wheezes - Cardiovascular Exam Cardiovascular Exam: REGULAR RHYTHM, +S1, +S2 - GI/Abdominal Exam GI & Abdominal Exam: Distended (mild), Soft, Tenderness (mild), Normal Bowel Sounds. absent: Guarding - Extremities Exam Extremities Exam: Normal Inspection. absent: Calf Tenderness - Neurological Exam Neurological Exam: Alert, Awake, Oriented x3 Assessment and Plan - Assessment and Plan (Free Text) Assessment: 82 y/o M with a PMHx of CAD, DM, CHF, COPD, recent CVA, HTN and diabetes admitted for evaluation of alarming hypertension. ->Resistant Hypertension: 206/82 mmHg at ED, muti-drug therapy. ->Chronic Kidney Disease stage 3. GFR 36. ->Pro-BNP was found to be elevated ~4690. Echocardiogram showed abnormal relaxation-->Acute on chronic Diastolic Heart Failure-preserved EF. ->Vomiting may be due to chronic constipation. --Continue hypertensive management. --HbA1c 7.2. However on insulin. Will perform a trial with PO Januvia. --Due to N/V and constipation: ordered Lactulose x1; Zofran 4mg PRN Q6H; Colace QHS; stop Aspirin and Iron pills. --US Abdomen. --NPO, D5%-LR at 80mL/hr. --Protonix 40mg daily --Continue with rest of management as ordered. --Creatinine Clearance is 33mL/min. Lovenox 40mg SC for DVT prophylaxis. <Riley Leggett - Last Filed: 10/20/17 18:13> Objective - Vital Signs/Intake and Output Vital Signs (last 24 hours): Temp Pulse Resp BP Pulse Ox 97.5 F L 69 18 156/66 H 98 10/20/17 17:13 10/20/17 17:13 10/20/17 17:13 10/20/17 17:13 10/20/17 17:13 - Medications Medications: Current Medications Albuterol Sulfate (Albuterol 0.083% Inhal Bere (2.5 Mg/3 Ml) Ud) 2.5 mg IH Q6 PRN PRN Reason: Shortness of Breath Amlodipine Besylate (Norvasc) 10 mg PO DAILY [facility] Last Admin: 10/20/17 12:49 Dose: 10 mg Atorvastatin Calcium (Lipitor) 40 mg PO HS [facility] Last Admin: 10/19/17 21:30 Dose: 40 mg Carvedilol (Coreg) 25 mg PO Q12 [facility] Cholecalciferol (Vitamin D) 2,000 intlu PO DAILY [facility] Last Admin: 10/20/17 12:50 Dose: 2,000 intlu Clopidogrel Bisulfate (Plavix) 75 mg PO DAILY [facility] Last Admin: 10/20/17 09:25 Dose: 75 mg Docusate Sodium (Colace) 100 mg PO HS [facility] Last Admin: 10/19/17 21:29 Dose: 100 mg Enoxaparin Sodium (Lovenox) 30 mg SC HS [facility] PRN Reason: Protocol Last Admin: 10/19/17 21:31 Dose: 30 mg Finasteride (Proscar) 5 mg PO DAILY [facility] Last Admin: 10/20/17 09:25 Dose: 5 mg Furosemide (Lasix) 40 mg PO DAILY [facility] Last Admin: 10/20/17 09:25 Dose: 40 mg Dextrose/Sodium Chloride (Dextrose 5%/0.45% Ns 1000 Ml) 1,000 mls @ 50 mls/hr IV .Q20H [facility] Stop: 10/21/17 17:15 Last Admin: 10/20/17 17:30 Dose: 50 mls/hr Ceftriaxone Sodium 1 gm/ (Sodium Chloride) 100 mls @ 100 mls/hr IVPB DAILY [facility] PRN Reason: Protocol Last Admin: 10/20/17 17:52 Dose: 100 mls/hr Insulin Human Lispro (Humalog) 0 units SC ACCU-CHECK [facility] PRN Reason: Protocol Last Admin: 10/20/17 17:38 Dose: 6 units Latanoprost (Xalatan Opht) 1 drop OU HS [facility] Last Admin: 10/19/17 21:29 Dose: 1 drop Lisinopril (Zestril) 20 mg PO DAILY [facility] Last Admin: 10/20/17 09:26 Dose: 20 mg Ondansetron HCl (Zofran Tab) 4 mg PO Q6 PRN PRN Reason: Nausea/Vomiting Last Admin: 10/19/17 08:37 Dose: 4 mg Pantoprazole Sodium (Protonix Inj) 40 mg IVP DAILY [facility] Last Admin: 10/20/17 09:24 Dose: 40 mg Potassium Chloride (K-Dur 20 Meq Er Tab) 20 meq PO DAILY [facility] Last Admin: 10/20/17 09:26 Dose: 20 meq Fluticasone/Salmeterol (Advair Diskus 250/50) 1 puff IH Q12 [facility] Last Admin: 10/20/17 09:24 Dose: 1 puff Sitagliptin Phosphate (Januvia) 50 mg PO DAILY [facility] Last Admin: 10/20/17 09:26 Dose: 50 mg Tamsulosin HCl (Flomax) 0.8 mg PO HS [facility] Last Admin: 10/19/17 21:31 Dose: 0.8 mg - Labs Labs: 10/20/17 15:00 10/20/17 06:20 PT 11.7 Seconds (9.8-13.1) 10/16/17 17:22 INR 1.1 10/16/17 17:22 APTT 29.0 Seconds (25.6-37.1) 10/16/17 17:22 Assessment and Plan - Assessment and Plan (Free Text) Plan: I was present during evaluation and discussed with Dr Ko re plans of care and mgt. Riley Leggett M.D.
--- NOTE | 2017-10-18 16:29 | CARD ---
APPROVED REPORT Date of service: 10/18/2017 <Conclusion> Sinus bradycardia Left ventricular hypertrophy with repolarization abnormality ST and T wave abnormaity, consider lateral wall ischemia Abnormal ECG
--- NOTE | 2017-10-18 16:41 | US ---
Date of service: 10/18/2017 HISTORY: persistent nausea and vomiting. COMPARISON: 08/28/2010. TECHNIQUE: Sonographic evaluation of the abdomen. FINDINGS: LIVER: Measures 13.5 cm. Patent portal vein. Portal venous flow: Hepatopetal. Unremarkable echogenicity of the liver parenchyma. No mass. No intrahepatic bile duct dilatation. GALLBLADDER: Echogenic focus 6 x 8 x 11 mm without distal shadowing. COMMON BILE DUCT: Measures 4.0 mm. No stones. No dilatation. PANCREAS: Unremarkable as visualized. No mass. No ductal dilatation. RIGHT KIDNEY: Measures 4.8 x 6.7cm. Normal echogenicity. No calculus, mass, or hydronephrosis. LEFT KIDNEY: Measures 4.4 x 8.7cm. Normal echogenicity. No calculus, mass, or hydronephrosis. SPLEEN: Normal in size and contour. No mass. AORTA: No aneurysmal dilatation. IVC: Unremarkable. OTHER FINDINGS: None. IMPRESSION: Cholelithiasis. No sonographic evidence of acute cholecystitis.
[2017-10-18] MEDS: Latanoprost 0.005% Opht SOUTION OU SCH (21:25)
[2017-10-18] MEDS ORDERED: Enoxaparin 40 mg Syringe SC SCH (22:00)
[2017-10-19] MEDS: Fluticasone-Salmeterol 250-50mcg Diskus IH SCH ×2 (08:34→21:28)
[2017-10-19] MEDS: Cholecalciferol 1,000 INTLU TAB PO SCH (08:36)
[2017-10-19] MEDS: Potassium Chloride 20 mEq ER Tab PO SCH (08:36)
[2017-10-19] MEDS: Insulin Lispro (humaLOG) 100 Units/ml Inj SC SCH ×4 (08:40→23:36)
[2017-10-19] MEDS ORDERED: GlipiZIDE 2.5 mg SR Tab PO SCH (10:00)
--- NOTE | 2017-10-19 21:26 | CP.PCM.PN ---
Subjective - Date & Time of Evaluation Date of Evaluation: 10/19/17 Time of Evaluation: 10:30 - Subjective Subjective: Patient feels better today Has slight SOB Has no chest pain. Not on any diuretic Noted elevated BP. WBC yesterday was normal. Objective - Vital Signs/Intake and Output Vital Signs (last 24 hours): Temp Pulse Resp BP Pulse Ox 98.0 F 67 18 156/68 H 98 10/19/17 19:43 10/19/17 19:43 10/19/17 19:43 10/19/17 19:43 10/19/17 19:43 - Medications Medications: Current Medications Albuterol Sulfate (Albuterol 0.083% Inhal Bere (2.5 Mg/3 Ml) Ud) 2.5 mg IH Q6 PRN PRN Reason: Shortness of Breath Amlodipine Besylate (Norvasc) 10 mg PO DAILY [facility] Last Admin: 10/19/17 08:37 Dose: 10 mg Atorvastatin Calcium (Lipitor) 40 mg PO HS [facility] Carvedilol (Coreg) 12.5 mg PO Q12 [facility] Last Admin: 10/19/17 08:37 Dose: 12.5 mg Cholecalciferol (Vitamin D) 2,000 intlu PO DAILY [facility] Last Admin: 10/19/17 08:36 Dose: 2,000 intlu Clopidogrel Bisulfate (Plavix) 75 mg PO DAILY [facility] Last Admin: 10/19/17 08:36 Dose: 75 mg Docusate Sodium (Colace) 100 mg PO HS [facility] Last Admin: 10/18/17 21:31 Dose: 100 mg Enoxaparin Sodium (Lovenox) 30 mg SC [facility] PRN Reason: Protocol Finasteride (Proscar) 5 mg PO DAILY [facility] Last Admin: 10/19/17 08:36 Dose: 5 mg Furosemide (Lasix) 40 mg PO DAILY [facility] Last Admin: 10/19/17 12:26 Dose: 40 mg Insulin Human Lispro (Humalog) 0 units SC ACCU-CHECK [facility] PRN Reason: Protocol Last Admin: 10/19/17 17:18 Dose: 2 units Latanoprost (Xalatan Opht) 1 drop OU HS [facility] Last Admin: 10/18/17 21:25 Dose: 1 drop Lisinopril (Zestril) 20 mg PO DAILY [facility] Last Admin: 08/18/18 08:35 Dose: 20 mg Ondansetron HCl (Zofran Tab) 4 mg PO Q6 PRN PRN Reason: Nausea/Vomiting Last Admin: 10/19/17 08:37 Dose: 4 mg Pantoprazole Sodium (Protonix Inj) 40 mg IVP DAILY [facility] Last Admin: 10/19/17 08:39 Dose: 40 mg Potassium Chloride (K-Dur 20 Meq Er Tab) 20 meq PO DAILY [facility] Last Admin: 10/19/17 08:36 Dose: 20 meq Fluticasone/Salmeterol (Advair Diskus 250/50) 1 puff IH Q12 [facility] Last Admin: 10/19/17 08:34 Dose: 1 puff Sitagliptin Phosphate (Januvia) 50 mg PO DAILY [facility] Last Admin: 10/19/17 12:26 Dose: 50 mg Tamsulosin HCl (Flomax) 0.8 mg PO HS [facility] Last Admin: 10/18/17 21:23 Dose: 0.8 mg - Labs Labs: 10/18/17 11:14 10/18/17 11:14 PT 11.7 Seconds (9.8-13.1) 10/16/17 17:22 INR 1.1 10/16/17 17:22 APTT 29.0 Seconds (25.6-37.1) 10/16/17 17:22 - Head Exam Head Exam: NORMAL INSPECTION - Eye Exam Eye Exam: Normal appearance - ENT Exam ENT Exam: Mucous Membranes Moist - Respiratory Exam Respiratory Exam: Clear to Ausculation Bilateral - Cardiovascular Exam Cardiovascular Exam: REGULAR RHYTHM - GI/Abdominal Exam GI & Abdominal Exam: Normal Bowel Sounds - Neurological Exam Neurological Exam: Awake - Psychiatric Exam Psychiatric exam: Depressed Assessment and Plan (1) CHF exacerbation Status: Acute (2) DM2 (diabetes mellitus, type 2) Status: Acute (3) HTN (hypertension) Status: Acute - Assessment and Plan (Free Text) Plan: Monitor CBc CMP Adjust BP meds cont tx cautious hydration monitor caloric intake
[2017-10-19] MEDS: Latanoprost 0.005% Opht SOUTION OU SCH (21:29)
[2017-10-19] MEDS: Enoxaparin 30 mg Syringe SC SCH (21:31)
--- NOTE | 2017-10-20 06:54 | CP.PCM.PN ---
<Jatinder Metz - Last Filed: 10/20/17 06:57> Subjective - Date & Time of Evaluation Date of Evaluation: 10/20/17 Time of Evaluation: 06:54 - Subjective Subjective: Mr. Fred Banegas was seen and examined at the bedside. Majority of time, he is non-verbal with occasionally utter clear words but utilizes non verbal cues such as nodding and shaking his head. He denies any headache, dizziness with left side weakness which is the residual from his previous CVA. He had an episode of hypotension yesterday wherein bolus of normal saline was administered , lastest blood pressure is 113/64. Objective - Vital Signs/Intake and Output Vital Signs (last 24 hours): Temp Pulse Resp BP Pulse Ox 99.2 F 68 16 113/65 95 10/20/17 04:38 10/20/17 04:38 10/20/17 04:38 10/20/17 04:38 10/20/17 04:38 - Medications Medications: Current Medications Albuterol Sulfate (Albuterol 0.083% Inhal Bere (2.5 Mg/3 Ml) Ud) 2.5 mg IH Q6 PRN PRN Reason: Shortness of Breath Amlodipine Besylate (Norvasc) 10 mg PO DAILY [facility] Last Admin: 10/19/17 08:37 Dose: 10 mg Atorvastatin Calcium (Lipitor) 40 mg PO HS [facility] Last Admin: 10/19/17 21:30 Dose: 40 mg Carvedilol (Coreg) 12.5 mg PO Q12 [facility] Last Admin: 10/19/17 21:28 Dose: 12.5 mg Cholecalciferol (Vitamin D) 2,000 intlu PO DAILY [facility] Last Admin: 10/19/17 08:36 Dose: 2,000 intlu Clopidogrel Bisulfate (Plavix) 75 mg PO DAILY [facility] Last Admin: 10/19/17 08:36 Dose: 75 mg Docusate Sodium (Colace) 100 mg PO HS [facility] Last Admin: 10/19/17 21:29 Dose: 100 mg Enoxaparin Sodium (Lovenox) 30 mg SC HS [facility] PRN Reason: Protocol Last Admin: 10/19/17 21:31 Dose: 30 mg Finasteride (Proscar) 5 mg PO DAILY [facility] Last Admin: 10/19/17 08:36 Dose: 5 mg Furosemide (Lasix) 40 mg PO DAILY [facility] Last Admin: 10/19/17 12:26 Dose: 40 mg Insulin Human Lispro (Humalog) 0 units SC ACCU-CHECK [facility] PRN Reason: Protocol Last Admin: 10/19/17 23:36 Dose: Not Given Latanoprost (Xalatan Opht) 1 drop OU HS [facility] Last Admin: 10/19/17 21:29 Dose: 1 drop Lisinopril (Zestril) 20 mg PO DAILY [facility] Last Admin: 10/19/17 08:35 Dose: 20 mg Ondansetron HCl (Zofran Tab) 4 mg PO Q6 PRN PRN Reason: Nausea/Vomiting Last Admin: 10/19/17 08:37 Dose: 4 mg Pantoprazole Sodium (Protonix Inj) 40 mg IVP DAILY [facility] Last Admin: 10/19/17 08:39 Dose: 40 mg Potassium Chloride (K-Dur 20 Meq Er Tab) 20 meq PO DAILY [facility] Last Admin: 10/19/17 08:36 Dose: 20 meq Fluticasone/Salmeterol (Advair Diskus 250/50) 1 puff IH Q12 [facility] Last Admin: 10/19/17 21:28 Dose: 1 puff Sitagliptin Phosphate (Januvia) 50 mg PO DAILY [facility] Last Admin: 10/19/17 12:26 Dose: 50 mg Tamsulosin HCl (Flomax) 0.8 mg PO HS [facility] Last Admin: 10/19/17 21:31 Dose: 0.8 mg - Labs Labs: 10/18/17 11:14 10/18/17 11:14 PT 11.7 Seconds (9.8-13.1) 10/16/17 17:22 INR 1.1 10/16/17 17:22 APTT 29.0 Seconds (25.6-37.1) 10/16/17 17:22 - Constitutional Appears: No Acute Distress - Head Exam Head Exam: NORMAL INSPECTION - Neurological Exam Neurological Exam: Awake Neuro motor strength exam: Left Upper Extremity: 4, Right Upper Extremity: 3, Left Lower Extremity: 4, Right Lower Extremity: 2/1 Additional comments: neurological unchanged from previous examination. Assessment and Plan (1) HTN (hypertension) Assessment & Plan: Continue all current medical, physical, occupational, and speech regimens. Recommend hydration,blood pressure control, and treat any electrolyte abnormalities. Status: Acute <Schmitt,Gautami - Last Filed: 10/22/17 12:56> Objective - Vital Signs/Intake and Output Vital Signs (last 24 hours): Temp Pulse Resp BP Pulse Ox 97.2 F L 62 18 161/68 H 98 10/22/17 08:00 10/22/17 09:00 10/22/17 08:00 10/22/17 08:57 10/22/17 08:00 - Medications Medications: Current Medications Albuterol Sulfate (Albuterol 0.083% Inhal Bere (2.5 Mg/3 Ml) Ud) 2.5 mg IH Q6 PRN PRN Reason: Shortness of Breath Amlodipine Besylate (Norvasc) 10 mg PO DAILY [facility] Last Admin: 10/22/17 08:55 Dose: 10 mg Atorvastatin Calcium (Lipitor) 40 mg PO HS [facility] Last Admin: 10/21/17 22:35 Dose: 40 mg Carvedilol (Coreg) 25 mg PO Q12 [facility] Last Admin: 10/22/17 12:22 Dose: Not Given Cholecalciferol (Vitamin D) 2,000 intlu PO DAILY [facility] Last Admin: 10/22/17 08:55 Dose: 2,000 intlu Clopidogrel Bisulfate (Plavix) 75 mg PO DAILY [facility] Last Admin: 10/22/17 08:54 Dose: 75 mg Docusate Sodium (Colace) 100 mg PO HS [facility] Last Admin: 10/21/17 22:23 Dose: 100 mg Enoxaparin Sodium (Lovenox) 30 mg SC HS [facility] PRN Reason: Protocol Last Admin: 10/21/17 22:24 Dose: 30 mg Escitalopram Oxalate (Lexapro) 5 mg PO DAILY [facility] Last Admin: 10/22/17 08:56 Dose: 5 mg Finasteride (Proscar) 5 mg PO DAILY [facility] Last Admin: 10/22/17 08:54 Dose: 5 mg Furosemide (Lasix) 20 mg PO DAILY [facility] Ceftriaxone Sodium 2 gm/ (Sodium Chloride) 100 mls @ 100 mls/hr IVPB DAILY [facility] PRN Reason: Protocol Last Admin: 10/22/17 08:54 Dose: 100 mls/hr Insulin Human Lispro (Humalog) 0 units SC ACCU-CHECK [facility] PRN Reason: Protocol Last Admin: 10/22/17 12:24 Dose: 2 units Latanoprost (Xalatan Opht) 1 drop OU HS [facility] Last Admin: 10/21/17 22:24 Dose: 1 drop Lisinopril (Zestril) 20 mg PO DAILY [facility] Last Admin: 10/22/17 08:55 Dose: 20 mg Lisinopril (Zestril) 40 mg PO DAILY [facility] Pantoprazole Sodium (Protonix Inj) 40 mg IVP DAILY [facility] Last Admin: 10/22/17 08:54 Dose: 40 mg Potassium Chloride (K-Dur 20 Meq Er Tab) 20 meq PO DAILY [facility] Last Admin: 10/22/17 08:56 Dose: 20 meq Sitagliptin Phosphate (Januvia) 50 mg PO DAILY [facility] Last Admin: 10/22/17 08:54 Dose: 50 mg Tamsulosin HCl (Flomax) 0.8 mg PO HS [facility] Last Admin: 10/21/17 22:24 Dose: 0.8 mg - Labs Labs: 10/22/17 04:20 10/22/17 04:20 PT 11.7 Seconds (9.8-13.1) 10/16/17 17:22 INR 1.1 10/16/17 17:22 APTT 29.0 Seconds (25.6-37.1) 10/16/17 17:22 Assessment and Plan - Assessment and Plan (Free Text) Plan: Attestation: I examined the patient myself and found the neurological exam to be unchanged. Agree with the assessment and the plan that i assisted in formulating. Thank you Dr. schmitt
[2017-10-20 07:13] LABS: BASO % 0.3 % (0.0-2.0); EOS # 0.1 K/uL (0.0-0.7); EOS % 0.9 % (0.0-4.0); HEMOGLOBIN 10.5 g/dL (12.0-18.0); LYMPH # 1.2 K/uL (1.0-4.3); LYMPH % 7.7 % (20.0-40.0); MEAN CELL VOLUME 91.6 fl (80.0-94.0); MEAN CORPUSCULAR HGB CONC 33.9 g/dL (33.0-37.0); MEAN PLATELET VOLUME 8.8 fl (7.2-11.7); MONO # 1.8 K/uL (0.0-0.8); MONO % 11.2 % (0.0-10.0); NEUT # 12.8 K/uL (1.8-7.0); NEUT % 79.9 % (50.0-75.0); PLATELET COUNT 344 K/uL (130-400); RBC 3.39 Mil/uL (4.40-5.90); RED CELL DISTRIBUTION WIDTH 14.6 % (11.5-14.5)
[2017-10-20 07:56] LABS: ALB/GLOB RATIO 1.1 (1.0-2.1); ALBUMIN 3.7 g/dL (3.5-5.0); CALCIUM 9.6 mg/dL (8.4-10.2)
[2017-10-20] MEDS: Fluticasone-Salmeterol 250-50mcg Diskus IH SCH ×2 (09:24→21:38)
[2017-10-20] MEDS: Potassium Chloride 20 mEq ER Tab PO SCH (09:26)
[2017-10-20] MEDS: Insulin Lispro (humaLOG) 100 Units/ml Inj SC SCH ×3 (09:32→17:38)
[2017-10-20 09:34] LABS: BANDS 2 % (0-2); LYMPHOCYTE 3 % (20-50); MONOCYTE 5 % (0-10); NEUTROPHIL 90 % (42-75); TOTAL CELLS COUNTED 100
[2017-10-20 09:35] LABS: LARGE PLATELETS PRESENT
[2017-10-20 09:36] LABS: ANISOCYTOSIS SLIGHT; HELMET CELLS SLIGHT; OVALOCYTES SLIGHT; POIKILOCYTOSIS SLIGHT; SCHISTOCYTES SLIGHT
[2017-10-20 09:50] LABS: PLATELET ESTIMATE NORMAL (NORMAL)
[2017-10-20] MEDS: Cholecalciferol 1,000 INTLU TAB PO SCH (12:50)
[2017-10-20 15:40] LABS: BASO # 0.1 K/uL (0.0-0.2); BASO % 0.3 % (0.0-2.0); EOS % 0.2 % (0.0-4.0); HEMOGLOBIN 9.9 g/dL (12.0-18.0); LYMPH # 1.2 K/uL (1.0-4.3); LYMPH % 5.8 % (20.0-40.0); MEAN CORPUSCULAR HEMOGLOBIN 30.6 pg (27.0-31.0); MEAN CORPUSCULAR HGB CONC 33.3 g/dL (33.0-37.0); MONO % 9.7 % (0.0-10.0); NEUT # 17.6 K/uL (1.8-7.0); RBC 3.22 Mil/uL (4.40-5.90); RED CELL DISTRIBUTION WIDTH 14.3 % (11.5-14.5)
--- NOTE | 2017-10-20 17:28 | RAD ---
Date of service: 10/20/2017 HISTORY: elevated wbc COMPARISON: 08/16/2017 TECHNIQUE: Chest PA and lateral FINDINGS: LUNGS: No active pulmonary disease. PLEURA: No significant pleural effusion identified. No pneumothorax apparent. CARDIOVASCULAR: Normal. OSSEOUS STRUCTURES: No significant abnormalities. VISUALIZED UPPER ABDOMEN: Normal. OTHER FINDINGS: None. IMPRESSION: No active disease.
[2017-10-20] MEDS: Dextrose 5%/0.45% NS 1,000 ML IV SCH (17:30)
--- NOTE | 2017-10-20 18:21 | CP.PCM.PN ---
Subjective - Date & Time of Evaluation Date of Evaluation: 10/20/17 Time of Evaluation: 14:00 - Subjective Subjective: Patient was noted to be stable But looks depressed Not maintaining conversation Has no fever Has poor intake Objective - Vital Signs/Intake and Output Vital Signs (last 24 hours): Temp Pulse Resp BP Pulse Ox 97.5 F L 69 18 156/66 H 98 10/20/17 17:13 10/20/17 17:13 10/20/17 17:13 10/20/17 17:13 10/20/17 17:13 - Medications Medications: Current Medications Albuterol Sulfate (Albuterol 0.083% Inhal Bere (2.5 Mg/3 Ml) Ud) 2.5 mg IH Q6 PRN PRN Reason: Shortness of Breath Amlodipine Besylate (Norvasc) 10 mg PO DAILY [facility] Last Admin: 10/20/17 12:49 Dose: 10 mg Atorvastatin Calcium (Lipitor) 40 mg PO HS [facility] Last Admin: 10/19/17 21:30 Dose: 40 mg Carvedilol (Coreg) 25 mg PO Q12 [facility] Cholecalciferol (Vitamin D) 2,000 intlu PO DAILY [facility] Last Admin: 10/20/17 12:50 Dose: 2,000 intlu Clopidogrel Bisulfate (Plavix) 75 mg PO DAILY [facility] Last Admin: 10/20/17 09:25 Dose: 75 mg Docusate Sodium (Colace) 100 mg PO HS [facility] Last Admin: 10/19/17 21:29 Dose: 100 mg Enoxaparin Sodium (Lovenox) 30 mg SC HS [facility] PRN Reason: Protocol Last Admin: 10/19/17 21:31 Dose: 30 mg Finasteride (Proscar) 5 mg PO DAILY [facility] Last Admin: 10/20/17 09:25 Dose: 5 mg Furosemide (Lasix) 40 mg PO DAILY [facility] Last Admin: 10/20/17 09:25 Dose: 40 mg Dextrose/Sodium Chloride (Dextrose 5%/0.45% Ns 1000 Ml) 1,000 mls @ 50 mls/hr IV .Q20H [facility] Stop: 10/21/17 17:15 Last Admin: 10/20/17 17:30 Dose: 50 mls/hr Ceftriaxone Sodium 1 gm/ (Sodium Chloride) 100 mls @ 100 mls/hr IVPB DAILY [facility] PRN Reason: Protocol Last Admin: 10/20/17 17:52 Dose: 100 mls/hr Insulin Human Lispro (Humalog) 0 units SC ACCU-CHECK [facility] PRN Reason: Protocol Last Admin: 10/20/17 17:38 Dose: 6 units Latanoprost (Xalatan Opht) 1 drop OU HS [facility] Last Admin: 10/19/17 21:29 Dose: 1 drop Lisinopril (Zestril) 20 mg PO DAILY [facility] Last Admin: 10/20/17 09:26 Dose: 20 mg Ondansetron HCl (Zofran Tab) 4 mg PO Q6 PRN PRN Reason: Nausea/Vomiting Last Admin: 10/19/17 08:37 Dose: 4 mg Pantoprazole Sodium (Protonix Inj) 40 mg IVP DAILY [facility] Last Admin: 10/20/17 09:24 Dose: 40 mg Potassium Chloride (K-Dur 20 Meq Er Tab) 20 meq PO DAILY [facility] Last Admin: 10/20/17 09:26 Dose: 20 meq Fluticasone/Salmeterol (Advair Diskus 250/50) 1 puff IH Q12 [facility] Last Admin: 10/20/17 09:24 Dose: 1 puff Sitagliptin Phosphate (Januvia) 50 mg PO DAILY [facility] Last Admin: 10/20/17 09:26 Dose: 50 mg Tamsulosin HCl (Flomax) 0.8 mg PO HS [facility] Last Admin: 10/19/17 21:31 Dose: 0.8 mg - Labs Labs: 10/20/17 15:00 10/20/17 06:20 PT 11.7 Seconds (9.8-13.1) 10/16/17 17:22 INR 1.1 10/16/17 17:22 APTT 29.0 Seconds (25.6-37.1) 10/16/17 17:22 - Head Exam Head Exam: NORMAL INSPECTION - Eye Exam Eye Exam: Normal appearance - Respiratory Exam Respiratory Exam: NORMAL BREATHING PATTERN - Cardiovascular Exam Cardiovascular Exam: REGULAR RHYTHM - GI/Abdominal Exam GI & Abdominal Exam: Normal Bowel Sounds - Neurological Exam Neurological Exam: Awake - Psychiatric Exam Psychiatric exam: Depressed Assessment and Plan (1) CHF exacerbation Status: Acute (2) DM2 (diabetes mellitus, type 2) Status: Acute (3) HTN (hypertension) Status: Acute (4) Depression Status: Acute (5) Debility Status: Acute (6) Physical debility Status: Acute - Assessment and Plan (Free Text) Plan: Con tmeds CBC was performed and showed elevated WBC Repeat CBC showed WBC of 21 Has no fever CXR is normal Ordered blood and urine C and S Discussed with Dr Frederick started on Rocephin repeat cbc cmp sed rate CRP in am
[2017-10-20 20:42] LABS: SQUAMOUS EPITHIAL 1 /hpf (0-5); URINE BILIRUBIN NEGATIVE (NEGATIVE); URINE BLOOD MODERATE (NEGATIVE); URINE CLARITY TURBID (Clear); URINE COLOR YELLOW (YELLOW); URINE GLUCOSE (UA) NEG (Normal); URINE LEUKOCYTE ESTERASE LARGE Leu/uL (Negative); URINE PROTEIN >=500 mg/dL (NEGATIVE); URINE UROBILINOGEN 0.2-1.0 mg/dL (0.2-1.0); WBC CLUMPS MANY /hpf
[2017-10-20] MEDS: Enoxaparin 30 mg Syringe SC SCH (21:39)
[2017-10-20] MEDS: Latanoprost 0.005% Opht SOUTION OU SCH (21:40)
[2017-10-21] MEDS: Insulin Lispro (humaLOG) 100 Units/ml Inj SC SCH ×5 (00:51→22:22)
[2017-10-21 05:54] LABS: BASO # 0.1 K/uL (0.0-0.2); BASO % 0.6 % (0.0-2.0); EOS # 0.2 K/uL (0.0-0.7); EOS % 0.8 % (0.0-4.0); HEMOGLOBIN 9.4 g/dL (12.0-18.0); LYMPH # 1.7 K/uL (1.0-4.3); MEAN CELL VOLUME 91.9 fl (80.0-94.0); MEAN CORPUSCULAR HEMOGLOBIN 30.7 pg (27.0-31.0); MEAN CORPUSCULAR HGB CONC 33.4 g/dL (33.0-37.0); MEAN PLATELET VOLUME 9.5 fl (7.2-11.7); MONO # 1.9 K/uL (0.0-0.8); MONO % 9.9 % (0.0-10.0); NEUT % 79.7 % (50.0-75.0); PLATELET COUNT 305 K/uL (130-400); RBC 3.06 Mil/uL (4.40-5.90); RED CELL DISTRIBUTION WIDTH 14.2 % (11.5-14.5); WHITE BLOOD COUNT 18.8 K/uL (4.8-10.8)
[2017-10-21 06:15] LABS: ALB/GLOB RATIO 1.2 (1.0-2.1); ALBUMIN 3.4 g/dL (3.5-5.0); CALCIUM 8.9 mg/dL (8.4-10.2)
--- NOTE | 2017-10-21 08:13 | CP.PCM.PN ---
Subjective - Date & Time of Evaluation Date of Evaluation: 10/21/17 Time of Evaluation: 08:11 - Subjective Subjective: Mr. Fred Banegas was seen and examined at the bedside. Majority of time, he utter incomprehensible words but utilizes non verbal cues such as nodding and shaking his head. 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 There was no untoward events overnight. Objective - Vital Signs/Intake and Output Vital Signs (last 24 hours): Temp Pulse Resp BP Pulse Ox 96.6 F L 57 L 18 120/72 98 10/21/17 04:45 10/21/17 04:45 10/21/17 04:45 10/21/17 04:45 10/21/17 04:45 - Medications Medications: Current Medications Albuterol Sulfate (Albuterol 0.083% Inhal Bere (2.5 Mg/3 Ml) Ud) 2.5 mg IH Q6 PRN PRN Reason: Shortness of Breath Amlodipine Besylate (Norvasc) 10 mg PO DAILY [facility] Last Admin: 10/20/17 12:49 Dose: 10 mg Atorvastatin Calcium (Lipitor) 40 mg PO HS [facility] Last Admin: 10/20/17 21:39 Dose: 40 mg Carvedilol (Coreg) 25 mg PO Q12 [facility] Last Admin: 10/21/17 00:48 Dose: 25 mg Cholecalciferol (Vitamin D) 2,000 intlu PO DAILY [facility] Last Admin: 10/20/17 12:50 Dose: 2,000 intlu Clopidogrel Bisulfate (Plavix) 75 mg PO DAILY [facility] Last Admin: 10/20/17 09:25 Dose: 75 mg Docusate Sodium (Colace) 100 mg PO HS [facility] Last Admin: 10/20/17 21:39 Dose: 100 mg Enoxaparin Sodium (Lovenox) 30 mg SC HS [facility] PRN Reason: Protocol Last Admin: 10/20/17 21:39 Dose: 30 mg Escitalopram Oxalate (Lexapro) 5 mg PO DAILY [facility] Finasteride (Proscar) 5 mg PO DAILY [facility] Last Admin: 10/20/17 09:25 Dose: 5 mg Furosemide (Lasix) 40 mg PO DAILY [facility] Last Admin: 10/20/17 09:25 Dose: 40 mg Dextrose/Sodium Chloride (Dextrose 5%/0.45% Ns 1000 Ml) 1,000 mls @ 50 mls/hr IV .Q20H [facility] Stop: 10/21/17 17:15 Last Admin: 10/20/17 17:30 Dose: 50 mls/hr Ceftriaxone Sodium 1 gm/ (Sodium Chloride) 100 mls @ 100 mls/hr IVPB DAILY [facility] PRN Reason: Protocol Last Admin: 10/20/17 17:52 Dose: 100 mls/hr Insulin Human Lispro (Humalog) 0 units SC ACCU-CHECK [facility] PRN Reason: Protocol Last Admin: 10/21/17 00:51 Dose: Not Given Latanoprost (Xalatan Opht) 1 drop OU HS [facility] Last Admin: 10/20/17 21:40 Dose: 1 drop Lisinopril (Zestril) 20 mg PO DAILY [facility] Last Admin: 10/20/17 09:26 Dose: 20 mg Pantoprazole Sodium (Protonix Inj) 40 mg IVP DAILY [facility] Last Admin: 10/20/17 09:24 Dose: 40 mg Potassium Chloride (K-Dur 20 Meq Er Tab) 20 meq PO DAILY [facility] Last Admin: 10/20/17 09:26 Dose: 20 meq Fluticasone/Salmeterol (Advair Diskus 250/50) 1 puff IH Q12 [facility] Last Admin: 10/20/17 21:38 Dose: 1 puff Sitagliptin Phosphate (Januvia) 50 mg PO DAILY [facility] Last Admin: 10/20/17 09:26 Dose: 50 mg Tamsulosin HCl (Flomax) 0.8 mg PO HS [facility] Last Admin: 10/20/17 21:40 Dose: 0.8 mg - Labs Labs: 10/21/17 04:20 10/21/17 04:20 PT 11.7 Seconds (9.8-13.1) 10/16/17 17:22 INR 1.1 10/16/17 17:22 APTT 29.0 Seconds (25.6-37.1) 10/16/17 17:22 - Constitutional Appears: No Acute Distress - Head Exam Head Exam: NORMAL INSPECTION - Neurological Exam Neurological Exam: Awake Neuro motor strength exam: Left Upper Extremity: 4, Right Upper Extremity: 2/1, Left Lower Extremity: 4, Right Lower Extremity: 3 Additional comments: neurological unchanged from previous examination. Assessment and Plan (1) HTN (hypertension) Assessment & Plan: Continue all current medical, physical, occupational, and speech therapies. Recommend hydration,blood pressure control, and treat any electrolyte abnormalities. Status: Acute
[2017-10-21] MEDS: Cholecalciferol 1,000 INTLU TAB PO SCH (09:06)
[2017-10-21] MEDS: Potassium Chloride 20 mEq ER Tab PO SCH (09:08)
[2017-10-21] MEDS: Fluticasone-Salmeterol 250-50mcg Diskus IH SCH ×2 (09:08→22:23)
[2017-10-21] MEDS: Dextrose 5%/0.45% NS 1,000 ML IV SCH (12:30)
--- NOTE | 2017-10-21 12:59 | CP.PCM.CON ---
History of Present Illness - History of Present Illness History of Present Illness: 82 year old male with past medical history of CAD, CHF, COPD, CVA, HTN and diabetes, who presents to the emergency department for evaluation of high blood pressure onset since last night associated with mild vomiting. Patient was recently hospitalized for x6 weeks due to stroke with right sided weakness with no obvious residual and was discharge on September 12. referred for ID eval for leukocytosis / UTI orders written Review of Systems - Constitutional Constitutional: As Per HPI - EENT Eyes: absent: As Per HPI, Blind Spots, Blurred Vision, Change in Vision, Decreased Night Vision, Diplopia, Discharge, Dry Eye, Exophthalmos, Floaters, Irritation, Itchy Eyes, Loss of Peripheral Vision, Pain, Photophobia, Requires Corrective Lenses, Sees Flashes, Spots in Vision, Tunnel Vision, Other Visual Disturbances, Loss of Vision, Other Ears: absent: As Per HPI, Decreased Hearing, Ear Discharge, Ear Pain, Tinnitus, Abnormal Hearing, Disequilibrium, Dizziness, Other Nose/Mouth/Throat: absent: As Per HPI, Epistaxis, Nasal Congestion, Nasal Discharge, Nasal Obstruction, Nasal Trauma, Nose Pain, Post Nasal Drip, Sinus Pain, Sinus Pressure, Bleeding Gums, Change in Voice, Dental Pain, Dry Mouth, Dysphagia, Halitosis, Hoarsness, Lip Swelling, Mouth Lesions, Mouth Pain, Odynophagia, Sore Throat, Throat Swelling, Tongue Swelling, Facial Pain, Neck Pain, Neck Mass, Other - Cardiovascular Cardiovascular: absent: As Per HPI, Acrocyanosis, Chest Pain, Chest Pain at Rest , Chest Pain with Activity, Claudication, Diaphoresis, Dyspnea, Dyspnea on Exertion, Edema, Irregular Heart Rhythm, Pain Radiating to Arm/Neck/Jaw, Leg Edema, Leg Ulcers, Lightheadedness, Orthopnea, Palpitations, Paroxysmal Nocturnal Dyspnea, Pedal Edema, Radiating Pain, Rapid Heart Rate, Slow Heart Rate, Syncope, Other - Respiratory Respiratory: As Per HPI - Gastrointestinal Gastrointestinal: absent: As Per HPI, Abdominal Pain, Belching, Bloating, Change in Bowel Habits, Change in Stool Character, Coffee Ground Emesis, Constipation, Cramping, Diarrhea, Dyspepsia, Dysphagia, Early Satiety, Excessive Flatus, Fecal Incontinence, Heartburn, Hematemesis, Hematochezia, Loose Stools, Melena, Nausea, Odynophagia, Temesmus, Vomiting, Other - Genitourinary Genitourinary: As Per HPI - Musculoskeletal Musculoskeletal: absent: As Per HPI, Abnormal Gait, Arthralgias, Atrophy, Back Pain, Deformity, Joint Swelling, Limited Range of Motion, Loss of Height, Muscle Cramps, Muscle Weakness, Myalgias, Neck Pain, Numbness, Radiating Pain into Limb, Stiffness, Tingling, Other - Integumentary Integumentary: absent: As Per HPI, Acne, Alopecia, Bleeding Lesions, Change in Hair, Change in Nails, Change in Pigmentation, Changing Lesions, Dry Skin, Erythema, Furuncle, Hirsutism, Lesions, New Lesions, Non-Healing Lesions, Photosensitivity, Pruritus, Rash, Skin Pain, Skin Ulcer, Sores, Striae, Swelling , Unusual Bruising, Wounds, Jaundice, Other - Neurological Neurological: As Per HPI - Psychiatric Psychiatric: absent: As Per HPI, Abnormal Sleep Pattern, Anhedonia, Anxiety, Auditory Hallucinations, Behavioral Changes, Change in Appetite, Change in Libido, Confusion, Depression, Difficulty Concentrating, Hallucinations, Homicidal Ideation, Hopelessness, Irritability, Memory Loss, Mood Swings, Panic Attacks, Paranoia, Suicidal Ideation, Visual Hallucinations, Tactile Hallucinations, Other - Endocrine Endocrine: absent: As Per HPI, Change in Body Appearance, Change in Libido, Cold Intolorance, Deepening of Voice, Excessive Sweating, Fatigue, Flushing, Heat Intolorance, Increase in Ring/Shoe/Hat Size, Palpitations, Polydipsia, Polyphagia, Polyuria, Other Past Patient History - Infectious Disease Hx of Infectious Diseases: None - Tetanus Immunizations Tetanus Immunization: Unknown - Past Medical History & Family History Past Medical History?: Yes - Past Social History Alcohol: None Drugs: Denies - CARDIAC Hx Congestive Heart Failure: Yes Hx Hypercholesterolemia: Yes Hx Hypertension: Yes - PULMONARY Hx Chronic Obstructive Pulmonary Disease (COPD): Yes - NEUROLOGICAL Hx Transient Ischemic Attacks (TIA): Yes (Per history in ~1988) - HEENT Hx HEENT Problems: Yes Other/Comment: left eye diabetic retinopathy - RENAL Hx Chronic Kidney Disease: Yes - ENDOCRINE/METABOLIC Hx Endocrine Disorders: Yes Hx Diabetes Mellitus Type 2: Yes - HEMATOLOGICAL/ONCOLOGICAL Hx Human Immunodeficiency Virus (HIV): No - INTEGUMENTARY Hx Dermatological Problems: No - MUSCULOSKELETAL/RHEUMATOLOGICAL Hx Arthritis: Yes - GASTROINTESTINAL Hx Gastrointestinal Disorders: No - GENITOURINARY/GYNECOLOGICAL Hx Genitourinary Disorders: Yes Hx Prostate Problems: Yes - PSYCHIATRIC Hx Psychophysiologic Disorder: Yes Hx Substance Use: No - SURGICAL HISTORY Hx Coronary Stent: Yes (x4) - ANESTHESIA Hx Anesthesia: Yes Hx Anesthesia Reactions: No Hx Malignant Hyperthermia: No Meds Allergies/Adverse Reactions: Allergies Allergy/AdvReac Type Severity Reaction Status Date / Time morphine Allergy VOMITING Verified 10/16/17 16:04 - Medications Medications: Current Medications Albuterol Sulfate (Albuterol 0.083% Inhal Bere (2.5 Mg/3 Ml) Ud) 2.5 mg IH Q6 PRN PRN Reason: Shortness of Breath Amlodipine Besylate (Norvasc) 10 mg PO DAILY [facility] Last Admin: 10/21/17 09:05 Dose: 10 mg Atorvastatin Calcium (Lipitor) 40 mg PO HS [facility] Last Admin: 10/20/17 21:39 Dose: 40 mg Carvedilol (Coreg) 25 mg PO Q12 [facility] Last Admin: 10/21/17 09:04 Dose: 25 mg Cholecalciferol (Vitamin D) 2,000 intlu PO DAILY [facility] Last Admin: 10/21/17 09:06 Dose: 2,000 intlu Clopidogrel Bisulfate (Plavix) 75 mg PO DAILY [facility] Last Admin: 10/21/17 09:05 Dose: 75 mg Docusate Sodium (Colace) 100 mg PO HS [facility] Last Admin: 10/20/17 21:39 Dose: 100 mg Enoxaparin Sodium (Lovenox) 30 mg SC HS [facility] PRN Reason: Protocol Last Admin: 10/20/17 21:39 Dose: 30 mg Escitalopram Oxalate (Lexapro) 5 mg PO DAILY [facility] Last Admin: 10/21/17 09:06 Dose: 5 mg Finasteride (Proscar) 5 mg PO DAILY [facility] Last Admin: 10/21/17 09:04 Dose: 5 mg Furosemide (Lasix) 40 mg PO DAILY [facility] Last Admin: 10/21/17 09:06 Dose: 40 mg Dextrose/Sodium Chloride (Dextrose 5%/0.45% Ns 1000 Ml) 1,000 mls @ 50 mls/hr IV .Q20H [facility] Stop: 10/21/17 17:15 Last Admin: 10/20/17 17:30 Dose: 50 mls/hr Ceftriaxone Sodium 1 gm/ (Sodium Chloride) 100 mls @ 100 mls/hr IVPB DAILY [facility] PRN Reason: Protocol Last Admin: 10/21/17 09:09 Dose: 100 mls/hr Insulin Human Lispro (Humalog) 0 units SC ACCU-CHECK [facility] PRN Reason: Protocol Last Admin: 10/21/17 12:31 Dose: 2 units Latanoprost (Xalatan Opht) 1 drop OU HS [facility] Last Admin: 10/20/17 21:40 Dose: 1 drop Lisinopril (Zestril) 20 mg PO DAILY [facility] Last Admin: 10/21/17 09:07 Dose: 20 mg Pantoprazole Sodium (Protonix Inj) 40 mg IVP DAILY [facility] Last Admin: 10/21/17 09:08 Dose: 40 mg Potassium Chloride (K-Dur 20 Meq Er Tab) 20 meq PO DAILY [facility] Last Admin: 10/21/17 09:08 Dose: 20 meq Fluticasone/Salmeterol (Advair Diskus 250/50) 1 puff IH Q12 [facility] Last Admin: 10/21/17 09:08 Dose: 1 puff Sitagliptin Phosphate (Januvia) 50 mg PO DAILY [facility] Last Admin: 10/21/17 09:06 Dose: 50 mg Tamsulosin HCl (Flomax) 0.8 mg PO HS [facility] Last Admin: 10/20/17 21:40 Dose: 0.8 mg Physical Exam - Constitutional Appears: Confused, Cachectic, Chronically Ill - Head Exam Head Exam: NORMOCEPHALIC - Eye Exam Eye Exam: PERRL. absent: Scleral icterus - ENT Exam ENT Exam: Mucous Membranes Dry - Neck Exam Neck exam: Negative for: Lymphadenopathy - Respiratory Exam Respiratory Exam: Decreased Breath Sounds - Cardiovascular Exam Cardiovascular Exam: REGULAR RHYTHM - GI/Abdominal Exam GI & Abdominal Exam: Diminished Bowel Sounds, Soft. absent: Tenderness - Rectal Exam Rectal Exam: Deferred - Exam Exam: NORMAL INSPECTION - Extremities Exam Extremities exam: Positive for: pedal pulses present. Negative for: calf tenderness, pedal edema, tenderness - Back Exam Back exam: paraspinal tenderness. absent: CVA tenderness (L), CVA tenderness (R ) - Neurological Exam Neurological exam: Alert, CN II-XII Intact, Motor Sensory Deficit Additional comments: RIGHT SIDED WEAK - Psychiatric Exam Psychiatric exam: Depressed - Skin Skin Exam: Dry Results - Vital Signs Recent Vital Signs: Last Vital Signs Temp 97.9 F 10/21/17 12:00 Pulse 60 10/21/17 12:00 Resp 18 10/21/17 12:00 BP 146/72 10/21/17 12:00 Pulse Ox 100 10/21/17 12:00 - Labs Result Diagrams: 10/22/17 04:20 10/22/17 04:20 Labs: Laboratory Results - last 24 hr 10/19/17 10/19/17 10/19/17 04:47 10:24 17:02 WBC RBC Hgb Hct MCV MCH MCHC RDW Plt Count MPV Neut % (Auto) Lymph % (Auto) [place] % (Auto) Eos % (Auto) Baso % (Auto) Neut # (Auto) Lymph # (Auto) [place] # (Auto) Eos # (Auto) Baso # (Auto) ESR Sodium Potassium Chloride Carbon Dioxide Anion Gap BUN Creatinine Est GFR ( Amer) Est GFR (Non-Af Amer) POC Glucose (mg/dL) 159 H 203 H 170 H Random Glucose Calcium Total Bilirubin AST ALT Alkaline Phosphatase Total Protein Albumin Globulin Albumin/Globulin Ratio TSH 3rd Generation Urine Color Urine Clarity Urine pH Ur Specific [place] Urine Protein Urine Glucose (UA) Urine Ketones Urine Blood Urine Nitrate Urine Bilirubin Urine Urobilinogen Ur Leukocyte Esterase Urine RBC (Auto) Urine WBC Clumps (Auto) Urine Microscopic WBC Ur Squamous Epith Cells Hyaline Casts 10/19/17 10/19/17 10/20/17 18:44 22:20 11:58 WBC RBC Hgb Hct MCV MCH MCHC RDW Plt Count MPV Neut % (Auto) Lymph % (Auto) [place] % (Auto) Eos % (Auto) Baso % (Auto) Neut # (Auto) Lymph # (Auto) [place] # (Auto) Eos # (Auto) Baso # (Auto) ESR Sodium Potassium Chloride Carbon Dioxide Anion Gap BUN Creatinine Est GFR ( Amer) Est GFR (Non-Af Amer) POC Glucose (mg/dL) 155 H 150 H 218 H Random Glucose Calcium Total Bilirubin AST ALT Alkaline Phosphatase Total Protein Albumin Globulin Albumin/Globulin Ratio TSH 3rd Generation Urine Color Urine Clarity Urine pH Ur Specific [place] Urine Protein Urine Glucose (UA) Urine Ketones Urine Blood Urine Nitrate Urine Bilirubin Urine Urobilinogen Ur Leukocyte Esterase Urine RBC (Auto) Urine WBC Clumps (Auto) Urine Microscopic WBC Ur Squamous Epith Cells Hyaline Casts 10/20/17 10/20/17 10/20/17 15:00 16:28 19:30 WBC 21.0 H RBC 3.22 L Hgb 9.9 L Hct 29.6 L MCV 92.0 MCH 30.6 MCHC 33.3 RDW 14.3 Plt Count 337 MPV 9.0 Neut % (Auto) 84.0 H Lymph % (Auto) 5.8 L [place] % (Auto) 9.7 Eos % (Auto) 0.2 Baso % (Auto) 0.3 Neut # (Auto) 17.6 H Lymph # (Auto) 1.2 [place] # (Auto) 2.0 H Eos # (Auto) 0.0 Baso # (Auto) 0.1 ESR Sodium Potassium Chloride Carbon Dioxide Anion Gap BUN Creatinine Est GFR ( Amer) Est GFR (Non-Af Amer) POC Glucose (mg/dL) 254 H Random Glucose Calcium Total Bilirubin AST ALT Alkaline Phosphatase Total Protein Albumin Globulin Albumin/Globulin Ratio TSH 3rd Generation Urine Color Yellow Urine Clarity Turbid Urine pH 6.0 Ur Specific [place] 1.010 Urine Protein >=500 Urine Glucose (UA) Neg Urine Ketones Negative Urine Blood Moderate Urine Nitrate Negative Urine Bilirubin Negative Urine Urobilinogen 0.2-1.0 Ur Leukocyte Esterase Large Urine RBC (Auto) 30 H Urine WBC Clumps (Auto) Many H Urine Microscopic WBC 1242 H Ur Squamous Epith Cells 1 Hyaline Casts 11-20 H 10/20/17 10/21/17 10/21/17 21:13 04:20 04:20 WBC 18.8 H RBC 3.06 L Hgb 9.4 L Hct 28.1 L MCV 91.9 MCH 30.7 MCHC 33.4 RDW 14.2 Plt Count 305 MPV 9.5 Neut % (Auto) 79.7 H Lymph % (Auto) 9.0 L [place] % (Auto) 9.9 Eos % (Auto) 0.8 Baso % (Auto) 0.6 Neut # (Auto) 15.0 H Lymph # (Auto) 1.7 [place] # (Auto) 1.9 H Eos # (Auto) 0.2 Baso # (Auto) 0.1 ESR > 120 H Sodium 137 Potassium 4.1 Chloride 101 Carbon Dioxide 27 Anion Gap 13 BUN 32 H Creatinine 2.2 H Est GFR ( Amer) 35 Est GFR (Non-Af Amer) 29 POC Glucose (mg/dL) 232 H Random Glucose 163 H Calcium 8.9 Total Bilirubin 0.4 AST 28 ALT 22 Alkaline Phosphatase 130 H Total Protein 6.4 Albumin 3.4 L Globulin 2.9 Albumin/Globulin Ratio 1.2 TSH 3rd Generation 0.73 Urine Color Urine Clarity Urine pH Ur Specific [place] Urine Protein Urine Glucose (UA) Urine Ketones Urine Blood Urine Nitrate Urine Bilirubin Urine Urobilinogen Ur Leukocyte Esterase Urine RBC (Auto) Urine WBC Clumps (Auto) Urine Microscopic WBC Ur Squamous Epith Cells Hyaline Casts 10/21/17 10/21/17 05:31 10:59 WBC RBC Hgb Hct MCV MCH MCHC RDW Plt Count MPV Neut % (Auto) Lymph % (Auto) [place] % (Auto) Eos % (Auto) Baso % (Auto) Neut # (Auto) Lymph # (Auto) [place] # (Auto) Eos # (Auto) Baso # (Auto) ESR Sodium Potassium Chloride Carbon Dioxide Anion Gap BUN Creatinine Est GFR ( Amer) Est GFR (Non-Af Amer) POC Glucose (mg/dL) 175 H 195 H Random Glucose Calcium Total Bilirubin AST ALT Alkaline Phosphatase Total Protein Albumin Globulin Albumin/Globulin Ratio TSH 3rd Generation Urine Color Urine Clarity Urine pH Ur Specific [place] Urine Protein Urine Glucose (UA) Urine Ketones Urine Blood Urine Nitrate Urine Bilirubin Urine Urobilinogen Ur Leukocyte Esterase Urine RBC (Auto) Urine WBC Clumps (Auto) Urine Microscopic WBC Ur Squamous Epith Cells Hyaline Casts Assessment & Plan (1) UTI (urinary tract infection) Status: Acute - Assessment and Plan (Free Text) Assessment: CONT IV ROCEPHIN AWAIT CULTURES EVAL AND D/C URRUTIA IF POSSIBLE
[2017-10-21] MEDS: cefTRIAXone 2 GM in Sodium Chloride 0.9% 100 ML IVPB SCH (16:54)
[2017-10-21] MEDS: Latanoprost 0.005% Opht SOUTION OU SCH (22:24)
[2017-10-21] MEDS: Enoxaparin 30 mg Syringe SC SCH (22:24)
[2017-10-22 05:47] LABS: CALCIUM 8.7 mg/dL (8.4-10.2)
[2017-10-22 05:48] LABS: HEMOGLOBIN 9.5 g/dL (12.0-18.0); MEAN CELL VOLUME 92.3 fl (80.0-94.0); MEAN CORPUSCULAR HEMOGLOBIN 31.3 pg (27.0-31.0); RBC 3.02 Mil/uL (4.40-5.90); RED CELL DISTRIBUTION WIDTH 14.7 % (11.5-14.5)
[2017-10-22] MEDS: Insulin Lispro (humaLOG) 100 Units/ml Inj SC SCH ×4 (06:15→23:14)
[2017-10-22] MEDS: cefTRIAXone 2 GM in Sodium Chloride 0.9% 100 ML IVPB SCH (08:54)
[2017-10-22] MEDS: Cholecalciferol 1,000 INTLU TAB PO SCH (08:55)
[2017-10-22] MEDS: Potassium Chloride 20 mEq ER Tab PO SCH (08:56)
--- NOTE | 2017-10-22 10:20 | CP.PCM.PN ---
<Dino Ko - Last Filed: 10/22/17 10:13> Subjective - Date & Time of Evaluation Date of Evaluation: 10/22/17 Time of Evaluation: 09:30 - Subjective Subjective: 82 y/o M reports feeling OK. Pt is awake, is eating, able to talk in german. Pt afebrile with No acute events overnight. Urine Culture has showed gram negative rods growth. Objective - Vital Signs/Intake and Output Vital Signs (last 24 hours): Temp Pulse Resp BP Pulse Ox 97.2 F L 62 18 161/68 H 98 10/22/17 08:00 10/22/17 08:57 10/22/17 08:00 10/22/17 08:57 10/22/17 08:00 - Medications Medications: Current Medications Albuterol Sulfate (Albuterol 0.083% Inhal Bere (2.5 Mg/3 Ml) Ud) 2.5 mg IH Q6 PRN PRN Reason: Shortness of Breath Amlodipine Besylate (Norvasc) 10 mg PO DAILY [facility] Last Admin: 10/22/17 08:55 Dose: 10 mg Atorvastatin Calcium (Lipitor) 40 mg PO HS [facility] Last Admin: 10/21/17 22:35 Dose: 40 mg Carvedilol (Coreg) 25 mg PO Q12 [facility] Last Admin: 10/22/17 08:57 Dose: 25 mg Cholecalciferol (Vitamin D) 2,000 intlu PO DAILY [facility] Last Admin: 10/22/17 08:55 Dose: 2,000 intlu Clopidogrel Bisulfate (Plavix) 75 mg PO DAILY [facility] Last Admin: 10/22/17 08:54 Dose: 75 mg Docusate Sodium (Colace) 100 mg PO HS [facility] Last Admin: 10/21/17 22:23 Dose: 100 mg Enoxaparin Sodium (Lovenox) 30 mg SC [facility] PRN Reason: Protocol Last Admin: 10/21/17 22:24 Dose: 30 mg Escitalopram Oxalate (Lexapro) 5 mg PO DAILY [facility] Last Admin: 10/22/17 08:56 Dose: 5 mg Finasteride (Proscar) 5 mg PO DAILY [facility] Last Admin: 10/22/17 08:54 Dose: 5 mg Furosemide (Lasix) 40 mg PO DAILY [facility] Last Admin: 10/22/17 08:56 Dose: 40 mg Ceftriaxone Sodium 2 gm/ (Sodium Chloride) 100 mls @ 100 mls/hr IVPB DAILY [facility] PRN Reason: Protocol Last Admin: 10/22/17 08:54 Dose: 100 mls/hr Insulin Human Lispro (Humalog) 0 units SC ACCU-CHECK [facility] PRN Reason: Protocol Last Admin: 10/22/17 06:15 Dose: Not Given Latanoprost (Xalatan Opht) 1 drop OU HS [facility] Last Admin: 10/21/17 22:24 Dose: 1 drop Lisinopril (Zestril) 20 mg PO DAILY [facility] Last Admin: 10/22/17 08:55 Dose: 20 mg Pantoprazole Sodium (Protonix Inj) 40 mg IVP DAILY [facility] Last Admin: 10/22/17 08:54 Dose: 40 mg Potassium Chloride (K-Dur 20 Meq Er Tab) 20 meq PO DAILY [facility] Last Admin: 10/22/17 08:56 Dose: 20 meq Sitagliptin Phosphate (Januvia) 50 mg PO DAILY [facility] Last Admin: 10/22/17 08:54 Dose: 50 mg Tamsulosin HCl (Flomax) 0.8 mg PO HS [facility] Last Admin: 10/21/17 22:24 Dose: 0.8 mg - Labs Labs: 10/22/17 04:20 10/22/17 04:20 PT 11.7 Seconds (9.8-13.1) 10/16/17 17:22 INR 1.1 10/16/17 17:22 APTT 29.0 Seconds (25.6-37.1) 10/16/17 17:22 - Constitutional Appears: No Acute Distress - Head Exam Head Exam: ATRAUMATIC, NORMAL INSPECTION - Eye Exam Eye Exam: EOMI, Normal appearance - ENT Exam ENT Exam: Mucous Membranes Moist - Neck Exam Neck Exam: Full ROM. absent: Meningismus - Respiratory Exam Respiratory Exam: NORMAL BREATHING PATTERN. absent: Rhonchi, Wheezes - Cardiovascular Exam Cardiovascular Exam: +S1, +S2 - GI/Abdominal Exam GI & Abdominal Exam: Soft. absent: Guarding, Rigid, Tenderness - Neurological Exam Neurological Exam: Awake Assessment and Plan - Assessment and Plan (Free Text) Assessment: 82 y/o M with a PMHx of CAD, DM, CHF, COPD, recent CVA, HTN and diabetes admitted for evaluation of alarming hypertension. ->Resistant Hypertension: 206/82 mmHg at ED, muti-drug therapy. ->Chronic Kidney Disease stage 3. GFR 36. -> UCx awith gram negative rods. --Continue hypertensive management. --On Rocephin --Tolerating PO --ID on board, Dr Frederick. --BUN/Creatinine 34/2.3, acute kidney injury, possibly due to diuresis, will decreased Lasix to 20mg. --Continue with rest of management as ordered. --Creatinine Clearance is 33mL/min. Lovenox 40mg SC for DVT prophylaxis. <Riley Haas - Last Filed: 10/22/17 10:35> Objective - Vital Signs/Intake and Output Vital Signs (last 24 hours): Temp Pulse Resp BP Pulse Ox 97.2 F L 62 18 161/68 H 98 10/22/17 08:00 10/22/17 08:57 10/22/17 08:00 10/22/17 08:57 10/22/17 08:00 - Medications Medications: Current Medications Albuterol Sulfate (Albuterol 0.083% Inhal Bere (2.5 Mg/3 Ml) Ud) 2.5 mg IH Q6 PRN PRN Reason: Shortness of Breath Amlodipine Besylate (Norvasc) 10 mg PO DAILY [facility] Last Admin: 10/22/17 08:55 Dose: 10 mg Atorvastatin Calcium (Lipitor) 40 mg PO HS [facility] Last Admin: 10/21/17 22:35 Dose: 40 mg Carvedilol (Coreg) 50 mg PO Q12 [facility] Cholecalciferol (Vitamin D) 2,000 intlu PO DAILY [facility] Last Admin: 10/22/17 08:55 Dose: 2,000 intlu Clopidogrel Bisulfate (Plavix) 75 mg PO DAILY [facility] Last Admin: 10/22/17 08:54 Dose: 75 mg Docusate Sodium (Colace) 100 mg PO HS [facility] Last Admin: 10/21/17 22:23 Dose: 100 mg Enoxaparin Sodium (Lovenox) 30 mg SC HS [facility] PRN Reason: Protocol Last Admin: 10/21/17 22:24 Dose: 30 mg Escitalopram Oxalate (Lexapro) 5 mg PO DAILY [facility] Last Admin: 10/22/17 08:56 Dose: 5 mg Finasteride (Proscar) 5 mg PO DAILY [facility] Last Admin: 10/22/17 08:54 Dose: 5 mg Furosemide (Lasix) 20 mg PO DAILY [facility] Ceftriaxone Sodium 2 gm/ (Sodium Chloride) 100 mls @ 100 mls/hr IVPB DAILY [facility] PRN Reason: Protocol Last Admin: 10/22/17 08:54 Dose: 100 mls/hr Insulin Human Lispro (Humalog) 0 units SC ACCU-CHECK [facility] PRN Reason: Protocol Last Admin: 10/22/17 06:15 Dose: Not Given Latanoprost (Xalatan Opht) 1 drop OU HS [facility] Last Admin: 10/21/17 22:24 Dose: 1 drop Lisinopril (Zestril) 20 mg PO DAILY [facility] Last Admin: 10/22/17 08:55 Dose: 20 mg Pantoprazole Sodium (Protonix Inj) 40 mg IVP DAILY [facility] Last Admin: 10/22/17 08:54 Dose: 40 mg Potassium Chloride (K-Dur 20 Meq Er Tab) 20 meq PO DAILY [facility] Last Admin: 10/22/17 08:56 Dose: 20 meq Sitagliptin Phosphate (Januvia) 50 mg PO DAILY [facility] Last Admin: 10/22/17 08:54 Dose: 50 mg Tamsulosin HCl (Flomax) 0.8 mg PO HS [facility] Last Admin: 10/21/17 22:24 Dose: 0.8 mg - Labs Labs: 10/22/17 04:20 10/22/17 04:20 PT 11.7 Seconds (9.8-13.1) 10/16/17 17:22 INR 1.1 10/16/17 17:22 APTT 29.0 Seconds (25.6-37.1) 10/16/17 17:22 Assessment and Plan (1) CHF exacerbation Status: Acute (2) DM2 (diabetes mellitus, type 2) Status: Acute (3) HTN (hypertension) Status: Acute (4) Depression Status: Acute (5) Debility Status: Acute (6) Physical debility Status: Acute - Assessment and Plan (Free Text) Plan: I was present during evaluation and discussed with Dr Ko re plans of care and tx. Riley Haas M.D.
--- NOTE | 2017-10-22 10:34 | CP.PCM.PN ---
Subjective - Date & Time of Evaluation Date of Evaluation: 10/21/17 Time of Evaluation: 11:35 - Subjective Subjective: patient is much more stable Has no fever On Rocephin Noted elevated BP. Objective - Vital Signs/Intake and Output Vital Signs (last 24 hours): Temp Pulse Resp BP Pulse Ox 97.2 F L 62 18 161/68 H 98 10/22/17 08:00 10/22/17 08:57 10/22/17 08:00 10/22/17 08:57 10/22/17 08:00 - Medications Medications: Current Medications Albuterol Sulfate (Albuterol 0.083% Inhal Bere (2.5 Mg/3 Ml) Ud) 2.5 mg IH Q6 PRN PRN Reason: Shortness of Breath Amlodipine Besylate (Norvasc) 10 mg PO DAILY [facility] Last Admin: 10/22/17 08:55 Dose: 10 mg Atorvastatin Calcium (Lipitor) 40 mg PO HS [facility] Last Admin: 10/21/17 22:35 Dose: 40 mg Carvedilol (Coreg) 25 mg PO Q12 [facility] Last Admin: 10/22/17 08:57 Dose: 25 mg Cholecalciferol (Vitamin D) 2,000 intlu PO DAILY [facility] Last Admin: 10/22/17 08:55 Dose: 2,000 intlu Clopidogrel Bisulfate (Plavix) 75 mg PO DAILY [facility] Last Admin: 10/22/17 08:54 Dose: 75 mg Docusate Sodium (Colace) 100 mg PO HS [facility] Last Admin: 10/21/17 22:23 Dose: 100 mg Enoxaparin Sodium (Lovenox) 30 mg SC HS [facility] PRN Reason: Protocol Last Admin: 10/21/17 22:24 Dose: 30 mg Escitalopram Oxalate (Lexapro) 5 mg PO DAILY [facility] Last Admin: 10/22/17 08:56 Dose: 5 mg Finasteride (Proscar) 5 mg PO DAILY [facility] Last Admin: 10/22/17 08:54 Dose: 5 mg Furosemide (Lasix) 20 mg PO DAILY [facility] Ceftriaxone Sodium 2 gm/ (Sodium Chloride) 100 mls @ 100 mls/hr IVPB DAILY [facility] PRN Reason: Protocol Last Admin: 10/22/17 08:54 Dose: 100 mls/hr Insulin Human Lispro (Humalog) 0 units SC ACCU-CHECK [facility] PRN Reason: Protocol Last Admin: 10/22/17 06:15 Dose: Not Given Latanoprost (Xalatan Opht) 1 drop OU HS [facility] Last Admin: 10/21/17 22:24 Dose: 1 drop Lisinopril (Zestril) 20 mg PO DAILY [facility] Last Admin: 10/22/17 08:55 Dose: 20 mg Pantoprazole Sodium (Protonix Inj) 40 mg IVP DAILY [facility] Last Admin: 10/22/17 08:54 Dose: 40 mg Potassium Chloride (K-Dur 20 Meq Er Tab) 20 meq PO DAILY [facility] Last Admin: 10/22/17 08:56 Dose: 20 meq Sitagliptin Phosphate (Januvia) 50 mg PO DAILY [facility] Last Admin: 10/22/17 08:54 Dose: 50 mg Tamsulosin HCl (Flomax) 0.8 mg PO HS [facility] Last Admin: 10/21/17 22:24 Dose: 0.8 mg - Labs Labs: 10/22/17 04:20 10/22/17 04:20 PT 11.7 Seconds (9.8-13.1) 10/16/17 17:22 INR 1.1 10/16/17 17:22 APTT 29.0 Seconds (25.6-37.1) 10/16/17 17:22 - Head Exam Head Exam: NORMAL INSPECTION - Eye Exam Eye Exam: Normal appearance - ENT Exam ENT Exam: Mucous Membranes Moist - Respiratory Exam Respiratory Exam: Clear to Ausculation Bilateral - Cardiovascular Exam Cardiovascular Exam: REGULAR RHYTHM - GI/Abdominal Exam GI & Abdominal Exam: Normal Bowel Sounds - Neurological Exam Neurological Exam: Awake Assessment and Plan (1) CHF exacerbation Status: Acute (2) DM2 (diabetes mellitus, type 2) Status: Acute (3) HTN (hypertension) Status: Acute (4) Depression Status: Acute (5) Debility Status: Acute (6) Physical debility Status: Acute - Assessment and Plan (Free Text) Plan: Cont rocephin cont BP meds adjust meds in am.
--- NOTE | 2017-10-22 11:05 | CP.PCM.PN ---
Subjective - Date & Time of Evaluation Date of Evaluation: 10/22/17 Time of Evaluation: 07:00 - Subjective Subjective: AWAKE ALERT NAD IV RX IN PROGRESS AWAIT SENSITIVITY Objective - Vital Signs/Intake and Output Vital Signs (last 24 hours): Temp Pulse Resp BP Pulse Ox 97.2 F L 62 18 161/68 H 98 10/22/17 08:00 10/22/17 08:57 10/22/17 08:00 10/22/17 08:57 10/22/17 08:00 - Medications Medications: Current Medications Albuterol Sulfate (Albuterol 0.083% Inhal Bere (2.5 Mg/3 Ml) Ud) 2.5 mg IH Q6 PRN PRN Reason: Shortness of Breath Amlodipine Besylate (Norvasc) 10 mg PO DAILY [facility] Last Admin: 10/22/17 08:55 Dose: 10 mg Atorvastatin Calcium (Lipitor) 40 mg PO HS [facility] Last Admin: 10/21/17 22:35 Dose: 40 mg Carvedilol (Coreg) 25 mg PO Q12 [facility] Cholecalciferol (Vitamin D) 2,000 intlu PO DAILY [facility] Last Admin: 10/22/17 08:55 Dose: 2,000 intlu Clopidogrel Bisulfate (Plavix) 75 mg PO DAILY [facility] Last Admin: 10/22/17 08:54 Dose: 75 mg Docusate Sodium (Colace) 100 mg PO HS [facility] Last Admin: 10/21/17 22:23 Dose: 100 mg Enoxaparin Sodium (Lovenox) 30 mg SC HS [facility] PRN Reason: Protocol Last Admin: 10/21/17 22:24 Dose: 30 mg Escitalopram Oxalate (Lexapro) 5 mg PO DAILY [facility] Last Admin: 10/22/17 08:56 Dose: 5 mg Finasteride (Proscar) 5 mg PO DAILY [facility] Last Admin: 10/22/17 08:54 Dose: 5 mg Furosemide (Lasix) 20 mg PO DAILY [facility] Ceftriaxone Sodium 2 gm/ (Sodium Chloride) 100 mls @ 100 mls/hr IVPB DAILY [facility] PRN Reason: Protocol Last Admin: 10/22/17 08:54 Dose: 100 mls/hr Insulin Human Lispro (Humalog) 0 units SC ACCU-CHECK [facility] PRN Reason: Protocol Last Admin: 10/22/17 06:15 Dose: Not Given Latanoprost (Xalatan Opht) 1 drop OU HS [facility] Last Admin: 10/21/17 22:24 Dose: 1 drop Lisinopril (Zestril) 20 mg PO DAILY [facility] Last Admin: 10/22/17 08:55 Dose: 20 mg Lisinopril (Zestril) 40 mg PO DAILY [facility] Pantoprazole Sodium (Protonix Inj) 40 mg IVP DAILY [facility] Last Admin: 10/22/17 08:54 Dose: 40 mg Potassium Chloride (K-Dur 20 Meq Er Tab) 20 meq PO DAILY [facility] Last Admin: 10/22/17 08:56 Dose: 20 meq Sitagliptin Phosphate (Januvia) 50 mg PO DAILY [facility] Last Admin: 10/22/17 08:54 Dose: 50 mg Tamsulosin HCl (Flomax) 0.8 mg PO HS [facility] Last Admin: 10/21/17 22:24 Dose: 0.8 mg - Labs Labs: 10/22/17 04:20 10/22/17 04:20 PT 11.7 Seconds (9.8-13.1) 10/16/17 17:22 INR 1.1 10/16/17 17:22 APTT 29.0 Seconds (25.6-37.1) 10/16/17 17:22 - Constitutional Appears: Non-toxic, Chronically Ill - Head Exam Head Exam: NORMOCEPHALIC - Eye Exam Eye Exam: PERRL - ENT Exam ENT Exam: Mucous Membranes Dry - Neck Exam Neck Exam: absent: Lymphadenopathy - Respiratory Exam Respiratory Exam: Decreased Breath Sounds - Cardiovascular Exam Cardiovascular Exam: REGULAR RHYTHM - GI/Abdominal Exam GI & Abdominal Exam: Distended, Soft - Rectal Exam Rectal Exam: Deferred - Exam Exam: NORMAL INSPECTION - Extremities Exam Extremities Exam: absent: Pedal Edema - Back Exam Back Exam: absent: CVA tenderness (L), CVA tenderness (R) Assessment and Plan (1) UTI (urinary tract infection) Status: Acute - Assessment and Plan (Free Text) Assessment: CONT RX AWAIT CULTURES
--- NOTE | 2017-10-22 13:02 | PQF ---
PROVIDER RESPONSE TEXT: Gfr stage 3 ckd REVIEWER QUERY TEXT: Documentation Clarification Your help is requested in clarifying the following clinical documentation, if you can please further specify in the medical record and discharge summary if there is any associated diagnosis or not to go along with the BUN, Creatinine and GFR results. The patient's Clinical Indicators include: Admitted for Resistant HTN and Acute on Chronic Diastolic CHF. BUN 23, 24, 32 Creatinine 1.3, 1.8, 1.9, 2.2 GFR 53, 36, 34, 29 Rx: Lasix po, IVF added on 10/21/17 Query created by: Dede Tyler on 10/21/2017 11:23 AM Electronically signed by: Riley Leggett MD 10/22/2017 12:58 PM
[2017-10-22] MEDS: Enoxaparin 30 mg Syringe SC SCH (21:05)
[2017-10-22] MEDS: Latanoprost 0.005% Opht SOUTION OU SCH (21:05)
[2017-10-23 05:46] LABS: HEMOGLOBIN 9.9 g/dL (12.0-18.0); MEAN CELL VOLUME 91.8 fl (80.0-94.0); MEAN CORPUSCULAR HEMOGLOBIN 31.3 pg (27.0-31.0); MEAN CORPUSCULAR HGB CONC 34.1 g/dL (33.0-37.0); RBC 3.15 Mil/uL (4.40-5.90); RED CELL DISTRIBUTION WIDTH 14.1 % (11.5-14.5); WHITE BLOOD COUNT 5.9 K/uL (4.8-10.8)
[2017-10-23 06:07] LABS: CALCIUM 8.9 mg/dL (8.4-10.2)
[2017-10-23] MEDS: cefTRIAXone 2 GM in Sodium Chloride 0.9% 100 ML IVPB SCH (08:24)
[2017-10-23] MEDS: Cholecalciferol 1,000 INTLU TAB PO SCH (08:25)
[2017-10-23] MEDS: Insulin Lispro (humaLOG) 100 Units/ml Inj SC SCH ×2 (08:28→12:22)
[2017-10-23] MEDS: Potassium Chloride 20 mEq ER Tab PO SCH (08:28)
[2017-10-23 08:34] VITALS: RESP 20
--- NOTE | 2017-10-23 09:31 | CP.PCM.PN ---
Subjective - Date & Time of Evaluation Date of Evaluation: 10/23/17 Time of Evaluation: 09:31 - Subjective Subjective: Mr. Fred Banegas was seen and examined at the bedside. Majority of time, he utter incomprehensible words but utilizes non verbal cues such as nodding and shaking his head. 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 There was no untoward events overnight. Objective - Vital Signs/Intake and Output Vital Signs (last 24 hours): Temp Pulse Resp BP Pulse Ox 97.6 F 65 20 143/55 L 100 10/23/17 08:00 10/23/17 08:33 10/23/17 08:00 10/23/17 08:33 10/23/17 08:00 - Medications Medications: Current Medications Albuterol Sulfate (Albuterol 0.083% Inhal Bere (2.5 Mg/3 Ml) Ud) 2.5 mg IH Q6 PRN PRN Reason: Shortness of Breath Amlodipine Besylate (Norvasc) 10 mg PO DAILY [facility] Last Admin: 10/23/17 08:25 Dose: 10 mg Atorvastatin Calcium (Lipitor) 40 mg PO HS [facility] Last Admin: 10/21/17 22:35 Dose: 40 mg Carvedilol (Coreg) 25 mg PO Q12 [facility] Last Admin: 10/23/17 08:29 Dose: 25 mg Cholecalciferol (Vitamin D) 2,000 intlu PO DAILY [facility] Last Admin: 10/23/17 08:25 Dose: 2,000 intlu Clopidogrel Bisulfate (Plavix) 75 mg PO DAILY [facility] Last Admin: 10/23/17 08:25 Dose: 75 mg Docusate Sodium (Colace) 100 mg PO HS [facility] Last Admin: 10/22/17 21:03 Dose: 100 mg Enoxaparin Sodium (Lovenox) 30 mg SC HS [facility] PRN Reason: Protocol Last Admin: 10/22/17 21:05 Dose: 30 mg Escitalopram Oxalate (Lexapro) 5 mg PO DAILY [facility] Last Admin: 10/23/17 08:27 Dose: 5 mg Finasteride (Proscar) 5 mg PO DAILY [facility] Last Admin: 10/23/17 08:25 Dose: 5 mg Furosemide (Lasix) 20 mg PO DAILY [facility] Last Admin: 10/23/17 08:27 Dose: 20 mg Ceftriaxone Sodium 2 gm/ (Sodium Chloride) 100 mls @ 100 mls/hr IVPB DAILY [facility] PRN Reason: Protocol Last Admin: 10/23/17 08:24 Dose: 100 mls/hr Insulin Human Lispro (Humalog) 0 units SC ACCU-CHECK [facility] PRN Reason: Protocol Last Admin: 10/23/17 08:28 Dose: Not Given Latanoprost (Xalatan Opht) 1 drop OU HS [facility] Last Admin: 10/22/17 21:05 Dose: 1 drop Lisinopril (Zestril) 40 mg PO DAILY [facility] Last Admin: 10/23/17 08:33 Dose: 40 mg Pantoprazole Sodium (Protonix Inj) 40 mg IVP DAILY [facility] Last Admin: 10/23/17 08:25 Dose: 40 mg Potassium Chloride (K-Dur 20 Meq Er Tab) 20 meq PO DAILY [facility] Last Admin: 10/23/17 08:28 Dose: 20 meq Sitagliptin Phosphate (Januvia) 50 mg PO DAILY [facility] Last Admin: 10/23/17 08:28 Dose: 50 mg Tamsulosin HCl (Flomax) 0.8 mg PO HS [facility] Last Admin: 10/22/17 21:03 Dose: 0.8 mg - Labs Labs: 10/23/17 04:20 10/23/17 04:20 PT 11.7 Seconds (9.8-13.1) 10/16/17 17:22 INR 1.1 10/16/17 17:22 APTT 29.0 Seconds (25.6-37.1) 10/16/17 17:22 - Constitutional Appears: No Acute Distress - Head Exam Head Exam: NORMAL INSPECTION - Neurological Exam Neurological Exam: Awake Neuro motor strength exam: Left Upper Extremity: 5, Right Upper Extremity: 3, Left Lower Extremity: 5, Right Lower Extremity: 3 Additional comments: neurological unchanged from previous examination. Assessment and Plan (1) HTN (hypertension) Assessment & Plan: Continue all current medical, physical, occupational, and speech therapies. Recommend hydration,blood pressure control, and treat any electrolyte abnormalities and infection. Status: Acute
[2017-10-23] MEDS ORDERED: Sodium Chloride 0.9% 1,000 ML IV SCH (11:00)
--- NOTE | 2017-10-23 12:02 | CP.PCM.PN ---
Subjective - Date & Time of Evaluation Date of Evaluation: 10/23/17 Time of Evaluation: 08:50 - Subjective Subjective: 82 y/o m evaluated and examined by bedside with Dr Leggett. Pt is awake anc communicates verbally in [place]. Pt reports feeling well, denies nausea, vomiting or abdominal pain. Pt afebrile with NO acute events overnight. Objective - Vital Signs/Intake and Output Vital Signs (last 24 hours): Temp Pulse Resp BP Pulse Ox 97.6 F 65 20 143/55 L 100 10/23/17 08:00 10/23/17 09:00 10/23/17 08:00 10/23/17 08:33 10/23/17 08:00 - Medications Medications: Current Medications Albuterol Sulfate (Albuterol 0.083% Inhal Bere (2.5 Mg/3 Ml) Ud) 2.5 mg IH Q6 PRN PRN Reason: Shortness of Breath Amlodipine Besylate (Norvasc) 10 mg PO DAILY [facility] Last Admin: 10/23/17 08:25 Dose: 10 mg Atorvastatin Calcium (Lipitor) 40 mg PO HS [facility] Last Admin: 10/21/17 22:35 Dose: 40 mg Carvedilol (Coreg) 25 mg PO Q12 [facility] Last Admin: 10/23/17 08:29 Dose: 25 mg Cholecalciferol (Vitamin D) 2,000 intlu PO DAILY [facility] Last Admin: 10/23/17 08:25 Dose: 2,000 intlu Clopidogrel Bisulfate (Plavix) 75 mg PO DAILY [facility] Last Admin: 10/23/17 08:25 Dose: 75 mg Docusate Sodium (Colace) 100 mg PO HS [facility] Last Admin: 10/22/17 21:03 Dose: 100 mg Enoxaparin Sodium (Lovenox) 30 mg SC [facility] PRN Reason: Protocol Last Admin: 10/22/17 21:05 Dose: 30 mg Escitalopram Oxalate (Lexapro) 5 mg PO DAILY [facility] Last Admin: 10/23/17 08:27 Dose: 5 mg Finasteride (Proscar) 5 mg PO DAILY [facility] Last Admin: 10/23/17 08:25 Dose: 5 mg Furosemide (Lasix) 20 mg PO DAILY [facility] Last Admin: 10/23/17 08:27 Dose: 20 mg Ceftriaxone Sodium 2 gm/ (Sodium Chloride) 100 mls @ 100 mls/hr IVPB DAILY [facility] PRN Reason: Protocol Last Admin: 10/23/17 08:24 Dose: 100 mls/hr Sodium Chloride (Sodium Chloride 0.9%) 1,000 mls @ 80 mls/hr IV .[id number] [facility] Stop: 10/24/17 10:49 Last Admin: 10/23/17 10:59 Dose: 80 mls/hr Insulin Human Lispro (Humalog) 0 units SC ACCU-CHECK [facility] PRN Reason: Protocol Last Admin: 10/23/17 08:28 Dose: Not Given Latanoprost (Xalatan Opht) 1 drop OU HS [facility] Last Admin: 10/22/17 21:05 Dose: 1 drop Lisinopril (Zestril) 40 mg PO DAILY [facility] Last Admin: 10/23/17 08:33 Dose: 40 mg Pantoprazole Sodium (Protonix Inj) 40 mg IVP DAILY [facility] Last Admin: 10/23/17 08:25 Dose: 40 mg Potassium Chloride (K-Dur 20 Meq Er Tab) 20 meq PO DAILY [facility] Last Admin: 10/23/17 08:28 Dose: 20 meq Sitagliptin Phosphate (Januvia) 50 mg PO DAILY [facility] Last Admin: 10/23/17 08:28 Dose: 50 mg Tamsulosin HCl (Flomax) 0.8 mg PO HS [facility] Last Admin: 10/22/17 21:03 Dose: 0.8 mg - Labs Labs: 10/23/17 04:20 10/23/17 04:20 PT 11.7 Seconds (9.8-13.1) 10/16/17 17:22 INR 1.1 10/16/17 17:22 APTT 29.0 Seconds (25.6-37.1) 10/16/17 17:22 - Constitutional Appears: Well, No Acute Distress - Head Exam Head Exam: ATRAUMATIC, NORMAL INSPECTION - Eye Exam Eye Exam: EOMI, Normal appearance - ENT Exam ENT Exam: Mucous Membranes Moist - Neck Exam Neck Exam: Full ROM. absent: Meningismus - Respiratory Exam Respiratory Exam: Clear to Ausculation Bilateral, NORMAL BREATHING PATTERN - Cardiovascular Exam Cardiovascular Exam: REGULAR RHYTHM, +S1, +S2 - GI/Abdominal Exam GI & Abdominal Exam: Soft, Normal Bowel Sounds. absent: Distended, Tenderness - Extremities Exam Extremities Exam: Full ROM. absent: Calf Tenderness - Neurological Exam Neurological Exam: Alert, Awake Assessment and Plan (1) HTN (hypertension) Status: Acute (2) CHF exacerbation Status: Acute (3) UTI (urinary tract infection) Status: Acute (4) Debility Status: Acute - Assessment and Plan (Free Text) Assessment: 82 y/o M with a PMHx of CAD, DM, CHF, COPD, recent CVA, HTN and diabetes admitted for evaluation of alarming hypertension. Admission complicated by acute UTI. ->Resistant Hypertension: 206/82 mmHg at ED, muti-drug therapy. ->Chronic Kidney Disease stage 3. GFR 36. -> UCx awith gram negative rods. --Continue hypertensive management, lisinopril increased to 40mg from 20 mg yesterday. Will monitor BP --On Rocephin --Tolerating PO --Awaiting sensitivity results from Urine Culture for proper antibiotic therapy. --ID on board, Dr Frederick. --Renal function improved since Lasix dose decreased to 20mg. BUN/Creatinine 30/ 2.1. --PO Hydration encouraged. --Continue with rest of management as ordered.
[2017-10-23 15:55] VITALS: BP 144/68; PULSE 57; TEMP 97.5; O2SAT 98
== END 2017-10-23 17:25 | disposition home or self-care (01) | DRG 291 ==
LOC: H.ER 16:02 → H.ERHOLD 20:19 → OBSVTOIN 20:40 → H.TEL 21:56
PROVIDERS: ADMIT Family Medicine; ATTEND Family Medicine
DX: I13.0 Hypertensive heart and chronic kidney disease with heart failure and stage 1 through stage 4 chronic kidney disease, or unspecified chronic kidney disease (principal); I50.33 Acute on chronic diastolic (congestive) heart failure; N39.0 Urinary tract infection, site not specified; N17.9 Acute kidney failure, unspecified; E11.22 Type 2 diabetes mellitus with diabetic chronic kidney disease; E11.319 Type 2 diabetes mellitus with unspecified diabetic retinopathy without macular edema; N18.3 Chronic kidney disease, stage 3 (moderate); K59.00 Constipation, unspecified; I25.10 Atherosclerotic heart disease of native coronary artery without angina pectoris; Z95.5 Presence of coronary angioplasty implant and graft; E78.00 Pure hypercholesterolemia, unspecified; F32.9 Major depressive disorder, single episode, unspecified; J44.9 Chronic obstructive pulmonary disease, unspecified; Z85.038 Personal history of other malignant neoplasm of large intestine; Z88.5 Allergy status to narcotic agent; I69.392 Facial weakness following cerebral infarction; R53.81 Other malaise; I95.9 Hypotension, unspecified; Z87.891 Personal history of nicotine dependence

== ENCOUNTER 2017-11-16 03:17 | Emergency (ER) | payer MEDICARE, OTHER ==
[2017-11-16 03:17] VITALS: BMI 27.6
[2017-11-16 03:27] VITALS: RESP 18; TEMP 98.8
--- NOTE | 2017-11-16 04:10 | ED PDOC ---
Hyperglycemia/Hypoglycemia Time Seen by Provider: 11/16/17 03:29 Chief Complaint (Nursing): High Blood Sugar Chief Complaint (Provider): Low Blood Sugar History Per: Patient, Family (daughter) History/Exam Limitations: no limitations Onset/Duration Of Symptoms: Mins (prior to arrival) Current Symptoms Are (Timing): Better : The patient does not have any of the infectious symptoms listed except for those marked. Additional Complaint(s): 82 year old diabetic male presents to the ED with daughter who states patient was acting strangely at home earlier today, seemingly more tired than usual. Thinking it was related to his blood pressure, the daughter called EMS and pt was found to be hypoglycemic in the field, treated with d50 to which he returned to baseline after. Currently, as per daughter, patient is acting normally, and he offers no complaints. PMD: none provided Past Medical History Reviewed: Historical Data, Nursing Documentation, Vital Signs Vital Signs: Last Vital Signs Temp 98.8 F 11/16/17 03:23 Pulse 60 11/16/17 03:23 Resp 18 11/16/17 03:23 BP 132/84 11/16/17 03:23 Pulse Ox 97 11/16/17 03:23 - Medical History PMH: Arthritis, CAD, CHF, COPD, CVA (with right side weakness), Diabetes (type II), HTN, Hypercholesterolemia, Malignancy (colon), Chronic Kidney Disease, TIA (Per history in ~1988) Denies: HIV - Surgical History Surgical History: Coronary Stent (x4) - Family History Family History: States: Unknown Family Hx - Living Arrangements Living Arrangements: With Family - Home Medications Home Medications: Ambulatory Orders Medication Instructions Recorded Albuterol 0.083% [Albuterol 0.083% 3 ml IH Q6 PRN #3 neb 09/12/17 Inhal Bere (2.5 mg/3 ml) UD] Aspirin [Aspirin Chewable] 81 mg PO DAILY #30 chew 09/12/17 Atorvastatin [Lipitor] 40 mg PO DAILY #30 tab 09/12/17 Cholecalciferol [Vitamin D 1000 IU] 2,000 intlu PO DAILY #30 tab 09/12/17 Clopidogrel [Plavix] 75 mg PO DAILY #30 tab 09/12/17 Ferrous Sulfate [Feosol] 325 mg PO TID 3 Days #30 tab 07/12/18 Finasteride [Proscar] 5 mg PO DAILY #30 tab 09/12/17 Fluticasone/Salmeterol 250/50 1 puff IH Q12 #1 puff 09/12/17 [Advair Diskus 250/50] Latanoprost 0.005% Opht [Xalatan 1 drop EACHEYE HS #1 bottle 09/12/17 Opht] Lisinopril [Zestril] 20 mg PO DAILY #30 tab 09/12/17 Tamsulosin [Flomax] 0.8 mg PO HS #30 cap 09/12/17 amLODIPine [Norvasc] 10 mg PO DAILY #30 tab 09/12/17 Carvedilol [Coreg] 25 mg PO HS 10/16/17 Insulin Aspart, Recombinant 20 unit SC BID 10/16/17 [Novolog] Levofloxacin [Levaquin] 500 mg PO DAILY #10 tablet 10/23/17 - Allergies Allergies/Adverse Reactions: Allergies Allergy/AdvReac Type Severity Reaction Status Date / Time morphine Allergy VOMITING Verified 10/16/17 16:04 Review of Systems ROS Statement: Except As Marked, All Systems Reviewed And Found Negative Constitutional: Positive for: Other (resolved hypoglycemia) Physical Exam - Reviewed Nursing Documentation Reviewed: Yes Vital Signs Reviewed: Yes - Physical Exam Appears: Positive for: Well, Non-toxic, No Acute Distress Head Exam: Positive for: ATRAUMATIC, NORMAL INSPECTION, NORMOCEPHALIC Skin: Positive for: Normal Color, Warm, Dry Eye Exam: Positive for: Normal appearance, EOMI, PERRL ENT: Positive for: Normal ENT Inspection Neck: Positive for: Normal, Painless ROM, Supple Cardiovascular/Chest: Positive for: Regular Rate, Rhythm Respiratory: Positive for: Normal Breath Sounds. Negative for: Accessory Muscle Use, Respiratory Distress Gastrointestinal/Abdominal: Positive for: Normal Exam, Soft. Negative for: Tenderness Back: Positive for: Normal Inspection Extremity: Positive for: Normal ROM Neurologic/Psych: Positive for: Alert, Oriented (x3). Negative for: Motor/ Sensory Deficits - ECG O2 Sat by Pulse Oximetry: 97 (RA) Pulse Ox Interpretation: Normal Medical Decision Making Medical Decision Makin A/P: pt with resolved hypoglycemia, well appearing, alert, oriented x3 --normal vital signs --will monitor for recurrent hypoglycemia 500 --FS remains wnl --Advised caution when using insulin --Will discharge home --Very well appearing upon discharge Scribe Attestation: Documented by Alyx Penn, acting as a scribe for Rey Washington MD. Provider Scribe Attestation: All medical record entries made by the Scribe were at my direction and personally dictated by me. I have reviewed the chart and agree that the record accurately reflects my personal performance of the history, physical exam, medical decision making, and the department course for this patient. I have also personally directed, reviewed, and agree with the discharge instructions and disposition. Disposition - Clinical Impression Clinical Impression: Hyperglycemia - Patient ED Disposition Is Patient to be Admitted: No - Disposition Referrals: LTAC, [facility] within [facility] [Outside] Disposition: Routine/Home Disposition Time: 04:59 Condition: STABLE Instructions: Hyperglycemia, Adult, Diabetes and Diet Forms: [employer]™ Connect (Faroese) Print Language: GERMAN
[2017-11-16 05:02] VITALS: BP 140/61; PULSE 53; O2SAT 100
== END 2017-11-16 06:05 | disposition home or self-care (01) ==
LOC: H.ER 03:17
DX: E11.65 Type 2 diabetes mellitus with hyperglycemia (principal)

== ENCOUNTER 2018-03-31 23:03 | Observation (INO) | payer MEDICARE, OTHER ==
[2018-03-31] MEDS ORDERED: Albuterol-Ipratrop 3 mg / 0.5 (3 ml) UD INH STA (23:47)
--- NOTE | 2018-04-01 00:12 | ED PDOC ---
HPI: SOB/CHF/COPD Time Seen by Provider: 03/31/18 23:10 Chief Complaint (Nursing): Shortness Of Breath Chief Complaint (Provider): Shortness Of Breath History Per: Patient History/Exam Limitations: no limitations Onset/Duration Of Symptoms: Other (this evening) Associated Symptoms: denies: Fever Additional Complaint(s): 82 years old male with history of stroke, hypertension, diabetes, CAD, CVA with right sided weakness, high cholesterol and chronic kidney disease presents to ER for evaluation of shortness of breath onset this evening. Patient is here with daughter. In EMS, patient was given nebulizer treatment that he reports feeling better after receiving it. He denies any fever, chest pain, vomiting or cough. PMD: Estevan Mcginnis Past Medical History Reviewed: Historical Data, Nursing Documentation, Vital Signs Vital Signs: Last Vital Signs Temp 98.7 F 03/31/18 23:08 Pulse 88 03/31/18 23:08 Resp 34 H 03/31/18 23:08 BP 236/92 H 03/31/18 23:08 Pulse Ox 100 03/31/18 23:08 - Medical History PMH: Arthritis, CAD, CHF, COPD, CVA (with right side weakness), Diabetes (type II), HTN, Hypercholesterolemia, Malignancy (colon), Chronic Kidney Disease, TIA (Per history in ~1988) Denies: HIV - Surgical History Surgical History: Coronary Stent (x4) - Family History Family History: States: Unknown Family Hx - Home Medications Home Medications: Ambulatory Orders Medication Instructions Recorded RX: Albuterol 0.083% [Albuterol 3 ml IH Q6 PRN #3 neb 09/12/17 0.083% Inhal Bere (2.5 mg/3 ml) UD] RX: Aspirin [Aspirin Chewable] 81 mg PO DAILY #30 chew 09/12/17 RX: Atorvastatin [Lipitor] 40 mg PO DAILY #30 tab 09/12/17 RX: Cholecalciferol [Vitamin D 2,000 intlu PO DAILY #30 tab 09/12/17 1000 IU] RX: Clopidogrel [Plavix] 75 mg PO DAILY #30 tab 09/12/17 RX: Ferrous Sulfate [Feosol] 325 mg PO TID 3 Days #30 tab 09/12/17 RX: Finasteride [Proscar] 5 mg PO DAILY #30 tab 09/12/17 RX: Fluticasone/Salmeterol 250/50 1 puff IH Q12 #1 puff 09/12/17 [Advair Diskus 250/50] RX: Latanoprost 0.005% Opht 1 drop EACHEYE HS #1 bottle 09/12/17 [Xalatan Opht] RX: Lisinopril [Zestril] 20 mg PO DAILY #30 tab 09/12/17 RX: Tamsulosin [Flomax] 0.8 mg PO HS #30 cap 09/12/17 RX: amLODIPine [Norvasc] 10 mg PO DAILY #30 tab 09/12/17 RX: Carvedilol [Coreg] 25 mg PO HS 10/16/17 RX: Insulin Aspart, Recombinant 20 unit SC BID 10/16/17 [Novolog] Levofloxacin [Levaquin] 500 mg PO DAILY #10 tablet 10/23/17 - Allergies Allergies/Adverse Reactions: Allergies Allergy/AdvReac Type Severity Reaction Status Date / Time morphine Allergy VOMITING Verified 03/31/18 23:08 Review of Systems ROS Statement: Except As Marked, All Systems Reviewed And Found Negative Constitutional: Negative for: Fever Cardiovascular: Negative for: Chest Pain Respiratory: Positive for: Shortness of Breath. Negative for: Cough Gastrointestinal: Negative for: Vomiting Physical Exam - Reviewed Nursing Documentation Reviewed: Yes Vital Signs Reviewed: Yes - Physical Exam Appears: Positive for: Well, No Acute Distress (On nebulizer treatment now) Head Exam: Positive for: ATRAUMATIC, NORMOCEPHALIC Neck: Positive for: Normal, Painless ROM, Supple Cardiovascular/Chest: Positive for: Regular Rate, Rhythm. Negative for: Murmur Respiratory: Positive for: Accessory Muscle Use, Rhonchi Gastrointestinal/Abdominal: Positive for: Normal Exam, Soft. Negative for: Tenderness Extremity: Positive for: Normal ROM. Negative for: Pedal Edema, Swelling Neurologic/Psych: Positive for: Alert, Oriented (x3) - Laboratory Results Result Diagrams: 04/01/18 00:53 04/01/18 00:53 - ECG ECG Rhythm: Positive for: Sinus Rhythm (with LVH) Rate: 83 O2 Sat by Pulse Oximetry: 100 (RA) Pulse Ox Interpretation: Normal Medical Decision Making Medical Decision Making: Time: 2343 Initial Impression: Shortness of breath. Rule out CHF, pneumonia, flu and COPD exacerbation. Initial Plan: --BNP --CMP --Chest x-ray --Duoneb 3 ml INH --Peak flow pre/post treatment --Influenza A B 0204 Labs reviewed and significant for elevated pro-BNP and negative for flu. 0240 CXR Findings: Mild bilateral pleural effusions. Passive atelectatic airspace disease of the lower lobes.The cardiac silhouette is moderately enlarged.There are changes of degenerative joint disease. Impression: Interval appearance of mild bilateral pleural effusions. 0328 Patient is admitted to Dr. Quiles, the hospitalist. dx chf, new pleural effusion Scribe Attestation: Documented by Mandie Parks, acting as a scribe for Adam Villalobos MD. Provider Scribe Attestation: All medical record entries made by the Scribe were at my direction and personally dictated by me. I have reviewed the chart and agree that the record accurately reflects my personal performance of the history, physical exam, medical decision making, and the department course for this patient. I have also personally directed, reviewed, and agree with the discharge instructions and disposition. Disposition - Clinical Impression Clinical Impression: CHF (congestive heart failure), Pleural effusion - Patient ED Disposition Is Patient to be Admitted: Yes - Disposition Disposition Time: 03:28 Condition: STABLE
[2018-04-01] MEDS ORDERED: Albuterol-Ipratrop 3 mg / 0.5 (3 ml) UD ONE (00:37)
[2018-04-01 00:57] LABS: BASO % 0.6 % (0.0-2.0); EOS # 0.5 K/uL (0.0-0.7); EOS % 7.2 % (0.0-4.0); HEMOGLOBIN 9.8 g/dL (12.0-18.0); LYMPH % 13.8 % (20.0-40.0); MEAN CELL VOLUME 92.1 fl (80.0-94.0); MEAN CORPUSCULAR HEMOGLOBIN 30.6 pg (27.0-31.0); MEAN CORPUSCULAR HGB CONC 33.3 g/dL (33.0-37.0); MEAN PLATELET VOLUME 8.5 fl (7.2-11.7); MONO # 0.5 K/uL (0.0-0.8); MONO % 7.7 % (0.0-10.0); NEUT % 70.7 % (50.0-75.0); NRBC % 0.1 % (0.0-0.0); RBC 3.2 Mil/uL (4.40-5.90); RED CELL DISTRIBUTION WIDTH 14.8 % (11.5-14.5); WHITE BLOOD COUNT 7.1 K/uL (4.8-10.8)
[2018-04-01 01:11] LABS: ALBUMIN 3.3 g/dL (3.5-5.0); CALCIUM 9.2 mg/dL (8.4-10.2)
[2018-04-01 01:19] LABS: TROPONIN I 0.046 ng/mL (0.00-0.120)
[2018-04-01] MEDS ORDERED: Albuterol-Ipratrop 3 mg / 0.5 (3 ml) UD INH PRN (04:26)
--- NOTE | 2018-04-01 05:13 | CP.PCM.HP ---
History of Present Illness - History of Present Illness History of Present Illness: 82 y/o M with a PMHx of DM2, HTN, CVA, asthma and Colon Cancer was brought to the ED due to SOB. Pt's granddaughter is at bedside and providing history. Pt started to experience SOB last night, around 9:30pm Albuterol nebulizer treatme nt was given to patient with NO improvement of symptoms and decided to come to ED. No cough, fever, chills, nasal congestion, cough, chest pain, palpitations, peripheral edema or rash. --Last Echocardiogram 02/05/18: LVEF 55-65%, grade I-abnormal relaxation pattern, abnormal global LV strain. PCP: [facility] [place] Allergy: Morphine Meds: Lasix 40mg PO daily Norvasc 10mg PO daily Albuterol Sulfate Neb PRN Novolog 20 units SC BID Plavix 75mg PO daily Lipitor 40mg PO daily Carvedilol 25mg PO HS Proscar 5mg PO daily Aspirin 81mg PO daily Feosol 325mg PO daily Lisinopril 10mg PO daily Flomax 0.4mg PO HS Advair 250/50 1 puff twice daily -PMHx: Diastolic Heart Failure, COPD, CAD s/p stent x 4, CKD, IDDM, HTN, HLD, Colon CA s/p surgery (1961), CVA (1988 and 2017), left eye blindness/diabetic retinopathy -PSHx: Cardiac Cath, Stents placement, Colon CA surgery (1961) - Type unclear -FHx: NC -SH: Lives with , kids, grandson. Pt quit smoking 10 years ago, used to smoke 1ppd x ~40 years. No alcohol and NO rec drugs. At ED: --Vital signs remarkable for tachypnea RR 34 and BP 236/92. --Bloodwork showed a pro-BNP 4500-high, potassium 5.1-mildly elevated. --EKG reviewed --CXR: interval appereance of mild pleural effusions. --Duoneb x1 and IV Lasix 20mg Present on Admission - Present on Admission Any Indicators Present on Admission: No Review of Systems - Review of Systems All systems: reviewed and no additional remarkable complaints except Past Patient History - Infectious Disease Hx of Infectious Diseases: None - Tetanus Immunizations Tetanus Immunization: Unknown - Past Medical History & Family History Past Medical History?: Yes - Past Social History Smoking Status: Former Smoker - CARDIAC Hx Congestive Heart Failure: Yes Hx Hypercholesterolemia: Yes Hx Hypertension: Yes - PULMONARY Hx Chronic Obstructive Pulmonary Disease (COPD): Yes - NEUROLOGICAL Hx Transient Ischemic Attacks (TIA): Yes (Per history in ~1988) - HEENT Hx HEENT Problems: Yes Other/Comment: left eye diabetic retinopathy - RENAL Hx Chronic Kidney Disease: Yes - ENDOCRINE/METABOLIC Hx Endocrine Disorders: Yes Hx Diabetes Mellitus Type 2: Yes - HEMATOLOGICAL/ONCOLOGICAL Hx Human Immunodeficiency Virus (HIV): No - INTEGUMENTARY Hx Dermatological Problems: No - MUSCULOSKELETAL/RHEUMATOLOGICAL Hx Arthritis: Yes - GASTROINTESTINAL Hx Gastrointestinal Disorders: No - GENITOURINARY/GYNECOLOGICAL Hx Genitourinary Disorders: Yes Hx Prostate Problems: Yes - PSYCHIATRIC Hx Psychophysiologic Disorder: Yes Hx Substance Use: No - SURGICAL HISTORY Hx Coronary Stent: Yes (x4) - ANESTHESIA Hx Anesthesia: Yes Hx Anesthesia Reactions: No Hx Malignant Hyperthermia: No Meds Allergies/Adverse Reactions: Allergies Allergy/AdvReac Type Severity Reaction Status Date / Time morphine Allergy VOMITING Verified 03/31/18 23:08 Physical Exam - Constitutional Appears: No Acute Distress - Head Exam Head Exam: ATRAUMATIC, NORMAL INSPECTION - Eye Exam Eye Exam: EOMI, Normal appearance - ENT Exam ENT Exam: Mucous Membranes Moist - Neck Exam Neck exam: Positive for: Full Rom, Meningismus, Normal Inspection. Negative f or: Lymphadenopathy - Respiratory Exam Respiratory Exam: Decreased Breath Sounds (on bilateral bases, more on left base. ), Respiratory Distress, NORMAL BREATHING PATTERN. absent: Rhonchi, Wheezes - Cardiovascular Exam Cardiovascular Exam: REGULAR RHYTHM, +S1, +S2 - GI/Abdominal Exam GI & Abdominal Exam: Soft. absent: Distended, Guarding, Rigid, Tenderness - Extremities Exam Extremities exam: Positive for: full ROM, normal inspection. Negative for: calf tenderness, pedal edema, tenderness - Neurological Exam Neurological exam: Alert (and awake) Results - Vital Signs Recent Vital Signs: Last Vital Signs Temp 98.7 F 03/31/18 23:08 Pulse 83 04/01/18 03:42 Resp 34 H 03/31/18 23:08 BP 236/92 H 03/31/18 23:08 Pulse Ox 100 04/01/18 03:42 - Labs Result Diagrams: 04/01/18 00:53 01/29/19 00:53 Labs: Laboratory Results - last 24 hr 04/01/18 04/01/18 04/01/18 00:53 00:53 00:53 WBC 7.1 RBC 3.20 L Hgb 9.8 L Hct 29.5 L MCV 92.1 MCH 30.6 MCHC 33.3 RDW 14.8 H Plt Count 327 MPV 8.5 Neut % (Auto) 70.7 Lymph % (Auto) 13.8 L [place] % (Auto) 7.7 Eos % (Auto) 7.2 H Baso % (Auto) 0.6 Neut # (Auto) 5.0 Lymph # (Auto) 1.0 [place] # (Auto) 0.5 Eos # (Auto) 0.5 Baso # (Auto) 0.0 Sodium 140 Potassium 5.1 H Chloride 104 Carbon Dioxide 27 Anion Gap 14 BUN 26 H Creatinine 1.5 Est GFR ( Amer) 54 Est GFR (Non-Af Amer) 45 Random Glucose 143 H Calcium 9.2 Total Bilirubin 0.3 AST 24 ALT 34 Alkaline Phosphatase 172 H D Troponin I 0.0460 NT-Pro-B Natriuret Pep 4500 H Total Protein 6.6 Albumin 3.3 L Globulin 3.3 Albumin/Globulin Ratio 1.0 Influenza Typ A,B (EIA) Negative for flu a/b Assessment & Plan - Assessment and Plan (Free Text) Assessment: 82 y/o M with a PMHx of DM2, HTN, CVA, asthma/COPD and Colon Cancer was admitted for evaluation and management of dyspnea. --CXR: interval appereance of mild pleural effusions. --Last Echocardiogram 02/05/18: LVEF 55-65%, grade I-abnormal relaxation pattern, abnormal global LV strain. PLAN: >Dyspnea/CHF exacerbation/Asthma --Afebrile, no leukocytosis --pro-BNP 4500-high --Likely diastolic-CHF exacerbation, possible COPD/asthma exacerbation --Duoneb PRN Q4H --IV Lasix 40mg BID --Cardiology consult, Dr Morales. --Will repeat troponin level to r/o ACS --Home meds resumed. >Hyperkalemia, mild --Serum K+ 5.1 --Repeat BMP >HTN/Hx of CAD --Chronic --Home meds resumed >IDDM --C/w Home insulin --Home meds resumed --HBA1C 7.2 on 10/17/17 --Insulin Sliding Scale >DVT Prophylaxis --SCD's --Lovenox 40mg SC daily Case discussed with Dr Kb Mckeon PGY-2
[2018-04-01] MEDS ORDERED: Dextrose 50% SYRINGE Inj (50 ml) IV PRN (05:51)
[2018-04-01] MEDS ORDERED: Glucagon Recombinant 1 mg Inj IM PRN (05:51)
[2018-04-01 06:46] LABS: CALCIUM 8.8 mg/dL (8.4-10.2)
[2018-04-01 06:58] LABS: TROPONIN I 0.066 ng/mL (0.00-0.120)
[2018-04-01] MEDS: Insulin Lispro (humaLOG) 100 Units/ml Inj SC SCH ×6 (07:22→23:10)
[2018-04-01 08:22] VITALS: BMI 20.5
[2018-04-01] MEDS: Fluticasone-Salmeterol 250-50mcg Diskus IH SCH ×2 (10:29→21:31)
[2018-04-01] MEDS: Enoxaparin 30 mg Syringe SC SCH (10:31)
[2018-04-01] MEDS ORDERED: Sodium Chloride 0.9% 1,000 ML IV SCH ×2 (11:00→12:04)
--- NOTE | 2018-04-01 11:38 | RAD ---
Date of service: 03/31/2018 HISTORY: Shortness of breath. COMPARISON: 10/20/2017 TECHNIQUE: Chest PA and lateral FINDINGS: LUNGS: Lower lobe infiltrates PLEURA: Small pleural effusions inseparable from consolidative changes at the lung bases. CARDIOVASCULAR: No aortic atherosclerotic calcification present. Normal cardiac size. No pulmonary vascular congestion. OSSEOUS STRUCTURES: No significant abnormalities. VISUALIZED UPPER ABDOMEN: Surgical clips left upper quadrant. These are stable. OTHER FINDINGS: None. IMPRESSION: New lower lobe infiltrate/pleural effusions compared to the prior study 10/20/2017. Concordant findings (preliminary report) provided by [facility].
--- NOTE | 2018-04-01 11:45 | PCM.RRT ---
<Miki Edwards - Last Filed: 04/01/18 11:45> LEAD [employer] PROGRAMMER Nurse Assessment - Situation LEAD JAVA PROGRAMMER Responder Arrival Time: 10:03 Location: 4N Room Number: 418-2 LEAD JAVA PROGRAMMER Reason for Call: Hypertension LEAD JAVA PROGRAMMER Called By: RN, Physician - IV IV Inserted during LEAD JAVA PROGRAMMER?: No - Respiratory Oxygen Delivery Method: Room Air Received Nebulizer Treatments: No Was the Patient Ventilated with Bag/Mask 100% O2?: No Secretions Suctioned?: No Was the Patient Intubated?: No Was the Patient Placed on a Ventilator?: No - Ventilator Settings Ventilator Respiratory Rate Settin Ventilator Tidal Volume Settin - Medication Medications Administered During LEAD JAVA PROGRAMMER: Hydralazine 20 mgs. IVP @ 10:10 - Diagnostic Test Ordered EKG: Yes Chest X-Ray: No CT Scan: No CPR started during LEAD JAVA PROGRAMMER?: No - Vital Signs Vital Signs: Rapid Response Vital Sign Blood Pressure 220/81 Pulse Rate 64 Respiratory Rate 20 - Time LEAD JAVA PROGRAMMER Ended Time LEAD JAVA PROGRAMMER Ended: 10:18 - Vital Signs at end of LEAD JAVA PROGRAMMER Vital Signs at end of LEAD JAVA PROGRAMMER: Rapid Response End Vital Sign 10:03 209/71 mmhg and Pulse Rate was 60/min 10.05 BP was 220/81 and HR was 64/min. 10.10 BP was 220/77 mmhg and Pulse Rate was 61/min. 10.11 BP was 220/77 mmhg and HR was 60/min. 10.13 BP was BP was 182/64 mmhg and HR 65/min. 10:13 Blood Pressure 182/64 Pulse Rate 65 Respiratory Rate 18 - Recommendations LEAD JAVA PROGRAMMER Level of Care Recommendations: Remain in current setting I.Reason for LEAD JAVA PROGRAMMER - A) Acute Change in Patient: (Select all that apply): Acute change in SBP below (High Systolic blood pressure 210/68 mmhg) Subjective: High Systolic blood pressure 210/68 mmhg - Neurological Status (Select all that apply): Alert, Responsive, Oriented, Verbal, Follows Commands - Respiratory Oxygen Delivery Method: Room Air - Constitutional Appears: Non-toxic - Head Head Exam: ATRAUMATIC, NORMOCEPHALIC - Eyes Eye Exam: EOMI, Normal appearance, PERRL - Respiratory Exam Respiratory Exam: Clear to Ausculation Bilateral, NORMAL BREATHING PATTERN - Cardiovascular Exam Cardiovascular Exam: +S1, +S2 - GI/Abdominal Exam GI & Abdominal Exam: Soft, Normal Bowel Sounds - Neurological Exam Neurological Exam: Alert, Awake, Oriented x3 - Extremities Exam Extremities Exam: Normal Capillary Refill, Normal Inspection Plan - Assessment of Findings&Treatment Plan 82 y/o M with a PMHx of DM2, HTN, CVA, asthma and Colon Cancer admitted for SOB. Patient had episode of hypertension 210/68 mmhg andd HR 59/minwhile sleeping in bed. LEAD JAVA PROGRAMMER was called for the patient at 10:03. LEAD JAVA PROGRAMMER team arrived. Upon arrival patient was on bed the bed and his vitals retaken, BP was 209/71 mmhg and Pulse Rate was 60/min. Patient received 20 mg lisinopril, 12.5 mg Coreg and 40 mg lasix IV in the ED before coming up to telemetry unit. Hydralazine 20 mg IV bolus ordered and given to the patient IV. at 10.05 BP was 220/81 and Pulse Rate was 64/min. EKG done for the patient and shows no acute changes. at 10.10 BP was 220/77 mmhg and Pulse Rate was 61/min. At 10.11 BP was 220/77 mmhg and Pulse Rate was 60/min. At 10.13 BP was BP was 182/64 mmhg and Pulse Rate 65/min. Ordered Chest X-ray for the patient. Ordered PO Hydralazine 10 mg Q8, PO Norvasc 10 mg QD and IV Hydralazine 10mg if SBP > 180 mmhg LEAD JAVA PROGRAMMER deboning team leader by ; Fern Melgar MD Jamillette Agurre/ PGY3 Erik Bass/PGY1 Miki Edwards/PGY1 End of LEAD JAVA PROGRAMMER 10:13 am <Fern Melgar - Last Filed: 04/01/18 15:04> LEAD JAVA PROGRAMMER Nurse Assessment - Vital Signs Vital Signs: Rapid Response Vital Sign Blood Pressure 116/34 Pulse Rate 33 Respiratory Rate 21 Oxygen Saturation 100 - Vital Signs at end of LEAD JAVA PROGRAMMER Vital Signs at end of LEAD JAVA PROGRAMMER: Rapid Response End Vital Sign Blood Pressure 134/39 Pulse Rate 58 Respiratory Rate 22 O2 Sat by Pulse Oximetry 100 Attending/Attestation - Attestation I have personally seen and examined this patient.: Yes I have fully participated in the care of the patient.: Yes I have reviewed all pertinent clinical information, including history, physical exam and plan: Yes Notes (Text): Hypertensive Urgency - pt asymptomatic - BP 220 stsolic - Hydralazine 20 mg IV x 1 given- BP went down to 182 syst - EKG done : no change from previous - CXR - Cardio consulted
--- NOTE | 2018-04-01 12:01 | PCM.RRT ---
<Erik Bass - Last Filed: 04/01/18 13:04> DIRECTOR OF REGULATORY AFFAIRS Nurse Assessment - Situation DIRECTOR OF REGULATORY AFFAIRS Responder Arrival Time: 10:50 Location: 4N Room Number: 418-2 DIRECTOR OF REGULATORY AFFAIRS Reason for Call: Bradycardia DIRECTOR OF REGULATORY AFFAIRS Called By: RN, Physician - IV IV Inserted during DIRECTOR OF REGULATORY AFFAIRS?: Yes IV Fluids Initiated During DIRECTOR OF REGULATORY AFFAIRS?: Normal Saline Bolus 500 cc New IV Insertion Tolerance:: Excellent - Respiratory Oxygen Delivery Method: Nasal Cannula Received Nebulizer Treatments: No Was the Patient Ventilated with Bag/Mask 100% O2?: No Secretions Suctioned?: No Was the Patient Intubated?: No Was the Patient Placed on a Ventilator?: No - Ventilator Settings Ventilator Respiratory Rate Settin Ventilator Tidal Volume Settin - Diagnostic Test Ordered EKG: Yes Chest X-Ray: Yes CT Scan: No CPR started during DIRECTOR OF REGULATORY AFFAIRS?: No - Vital Signs Vital Signs: Rapid Response Vital Sign Blood Pressure 116/34 Pulse Rate 33 Respiratory Rate 21 Oxygen Saturation 100 - Aida Coma Scale Coma Scale Eye Opening: Spontaneous Coma Scale Motor: Obeys Commands Movement Coma Scale Verbal: Oriented Coma Scale Total: 15 - Time DIRECTOR OF REGULATORY AFFAIRS Ended Time DIRECTOR OF REGULATORY AFFAIRS Ended: 11:13 - Vital Signs at end of DIRECTOR OF REGULATORY AFFAIRS Vital Signs at end of DIRECTOR OF REGULATORY AFFAIRS: Rapid Response End Vital Sign Blood Pressure 134/39 Pulse Rate 58 Respiratory Rate 22 O2 Sat by Pulse Oximetry 100 - Recommendations DIRECTOR OF REGULATORY AFFAIRS Level of Care Recommendations: Remain in current setting Notifications: Attending Physician I.Reason for DIRECTOR OF REGULATORY AFFAIRS - A) Acute Change in Patient: (Select all that apply): Staff member or family is worried about patient, Acute change in heart rate less than 50 or greater than 120 (HR of 37) - Neurological Status (Select all that apply): Alert - Respiratory Oxygen Delivery Method: Nasal Cannula @L/min - Constitutional Appears: Well, Non-toxic, No Acute Distress - Head Head Exam: ATRAUMATIC, NORMOCEPHALIC - Eyes Eye Exam: Normal appearance - Respiratory Exam Respiratory Exam: Clear to Ausculation Bilateral, NORMAL BREATHING PATTERN. absent: Rales, Rhonchi, Wheezes - Cardiovascular Exam Cardiovascular Exam: Bradycardia, REGULAR RHYTHM - GI/Abdominal Exam GI & Abdominal Exam: Soft, Normal Bowel Sounds. absent: Firm, Guarding, Rigid - Neurological Exam Neurological Exam: Alert, Awake, Oriented x3 Plan - Assessment of Findings&Treatment Plan 82 y/o M with a PMHx of DM2, HTN, CVA, asthma and Colon Cancer admitted for SOB. Patient second Rapid response was called due to bradycardia, HR at 37. Patient symptomatic and complained of dizziness, weakness, blurry vision, but denies chest pain. Patient's first DIRECTOR OF REGULATORY AFFAIRS was due to elevated blood pressure and patient was given Hydralazine 20 mg IVP, Hydralazine 10 mg PO, and Norvasc 10 mg PO. Patient was also status post Coreg 12.5 from the ED. During this DIRECTOR OF REGULATORY AFFAIRS, a new line was inserted and patient was administered Bolus of Normal Saline 500 cc. EKG and CXR were also ordered. Patient states symptoms improved, and patient continued to deny chest pain. DIRECTOR OF REGULATORY AFFAIRS ended at 11:12. 10:53 HR 55 10:57 HR 88 11:03 BP 125/86, HR 51 11:12 BP 135/41, HR 53 Interventions EKG- bradycardic, no acute changes CXR- Normal Saline bolus 500 cc at 999 DIRECTOR OF REGULATORY AFFAIRS Lead: Dr. Melgar DIRECTOR OF REGULATORY AFFAIRS Team: Natalia Ayala/PGY3, Tanya Weaver/PGY1, Erik Bass/PGY1 , Miki Edwards/PGY1 <Fern Melgar - Last Filed: 04/01/18 15:15> DIRECTOR OF REGULATORY AFFAIRS Nurse Assessment - Vital Signs Vital Signs: Rapid Response Vital Sign Blood Pressure 116/34 Pulse Rate 33 Respiratory Rate 21 Oxygen Saturation 100 - Vital Signs at end of DIRECTOR OF REGULATORY AFFAIRS Vital Signs at end of DIRECTOR OF REGULATORY AFFAIRS: Rapid Response End Vital Sign Blood Pressure 134/39 Pulse Rate 58 Respiratory Rate 22 O2 Sat by Pulse Oximetry 100 Attending/Attestation - Attestation I have personally seen and examined this patient.: Yes I have fully participated in the care of the patient.: Yes I have reviewed all pertinent clinical information, including history, physical exam and plan: Yes Notes (Text): Sinus Bradycardia ? sec to Beta Jaime - decrease Coreg to 3.125 mg q1 2 - BP also dropped to 125 systolic - he had received his IV Lasix earlier, and all his PO antihypertensives - IVF hydration 500 ml given - decrease Lasix to 20mg IV daily - discussed case with Cardio - DR Morales Infiltrate vs Atelectasis - empirically start IV Ceftriaxone and Azithro - pt came in with some SOB and cough CKD stage III CHF exacerbation improving decrease Lasix to 20 mg IV daily decrease Coreg cont low dose Hydralazine and BRYCE
--- NOTE | 2018-04-01 12:37 | CARD ---
APPROVED REPORT Date of service: 04/01/2018 EKG Measurement Heart [id number] <Conclusion> Sinus bradycardia ST & T wave abnormality, consider lateral ischemia Abnormal ECG
--- NOTE | 2018-04-01 12:39 | CARD ---
APPROVED REPORT Date of service: 04/01/2018 EKG Measurement Heart [id number] 180P3 [id number] <Conclusion> Normal sinus rhythm Minimal voltage criteria for LVH, may be normal variant T wave abnormality, consider lateral ischemia Abnormal ECG
--- NOTE | 2018-04-01 12:52 | RAD ---
Date of service: 04/01/2018 HISTORY: [employer] COMPARISON: Chest radiographs 03/31/2018. FINDINGS: LUNGS: Left basilar atelectasis or infiltrate has increased with trace patchy density questioned at the medial right base. PLEURA: Trace left pleural effusion not excluded. None is identified at the right. No pneumothorax bilaterally. CARDIOVASCULAR: Calcific atherosclerotic changes are seen related to the thoracic aorta. Stable cardiomegaly. No pulmonary vascular congestion. OSSEOUS STRUCTURES: No significant abnormalities. VISUALIZED UPPER ABDOMEN: Surgical clips again evident left upper quadrant abdomen. OTHER FINDINGS: None. IMPRESSION: Increased infiltrate left base with limited patchy atelectasis or infiltrate medial right base. Stable cardiomegaly. No pulmonary vascular congestion.
--- NOTE | 2018-04-01 13:59 | CP.PCM.PCO ---
Addendum Addendum: 04/01/18 16:41 Patient seen and examined in bed. No complaints offered. Feeling better. No longer dizzy. gen: no acute distress, lying comfortably in bed. heart: regular rate and rhythm, s1s2 lungs: clear to auscultation b/l, normal respiratory effort abdomen: soft nt, nd extremity: no pedal edema Monitor BP closely.
[2018-04-01] MEDS: Azithromycin 500 MG in Sodium Chloride 0.9% 250 ML IVPB SCH (17:51)
[2018-04-01] MEDS ORDERED: Influenza Vaccine (5 YR UP)/PF 60 MCG/0.5 ML SYR IM ONE (18:38)
[2018-04-01 21:19] LABS: TROPONIN I 0.058 ng/mL (0.00-0.120)
[2018-04-01] MEDS ORDERED: Influenza Vaccine 60 mcg/0.5 mL SYR (4YR UP) IM ONE (22:00)
--- NOTE | 2018-04-01 23:23 | CON ---
DATE: 04/01/2018 REASON FOR CONSULTATION: Hypertension and sinus bradycardia. HISTORY OF PRESENT ILLNESS: The patient is an 82-year-old male who has a history of coronary artery disease, peripheral vascular disease, and hypertension according to an earlier evaluation by Dr. Dani Carlos. The patient presented at this time because of shortness of breath and was noted to be significantly hypertensive. The patient had rapid response twice on the floor, the first one because of hypertension, which resolved after one dose of IV hydralazine of 20 mg. Subsequently, the patient required another rapid response because of sinus bradycardia, heart rate of 37 and which the patient responded to fluid therapy. The patient was on Coreg of 25 mg every bedtime at home and currently on 3.125 mg twice a day. The patient denies any chest pain at this time. SOCIAL HISTORY: Nonsmoker. Nondrinker. MEDICATIONS: Current hospital medications, Advair one puff twice a day, hydralazine 10 mg intravenously every 6 hours p.r.n., aspirin 81 mg once a day, Coreg 3.125 mg twice a day, Flomax 0.8 mg once a day, Lasix 20 mg twice a day, Lipitor 40 mg once a day, subcutaneous Lovenox 30 mg once a day, Plavix 75 mg once a day, Proscar 5 mg once a day, Zestril 20 mg once a day. PAST MEDICAL HISTORY: Hypertension, peripheral vascular disease, coronary artery disease. REVIEW OF SYSTEMS: No nausea or vomiting. No productive cough. No fever or chills. PHYSICAL EXAMINATION: GENERAL: The patient is an elderly male who does not appear to be in any distress. VITAL SIGNS: Blood pressure 148/56, heart rate 60, temperature 97.4, and respirations 18. HEENT: Normocephalic. CHEST: Diminished breath sounds over the bases. HEART: S1 and S2. Regular. ABDOMEN: Soft. EXTREMITIES: No edema. LABORATORY DATA: Today's hemoglobin and hematocrit 9.8 and 29.5. White count and platelet count are within normal limits. SMA-7: Sodium 140, potassium 4.5, chloride 105, CO2 of 26, glucose 127, BUN 26, creatinine 1.5. Two sets of troponin are not in elevated range. ProBNP 4500. Influenza type A and B serology is negative. Chest x-ray revealed normal cardiac silhouette. Prominent bronchovascular markings and right lower lobe haziness. Echocardiographic study performed last month revealed normal ejection fraction, grade 1 abnormal relaxation pattern, borderline dilated left atrium, trivial mitral insufficiency. The EKGs that were performed during this admission were reviewed and revealed sinus rhythm and lateral ischemic ST-T wave changes which is an old finding since last year. ASSESSMENT: 1. Diastolic heart failure. 2. Hypertension. 3. A brief period of sinus bradycardia. 4. History of coronary artery disease and peripheral vascular disease, details are unknown. RECOMMENDATIONS: Case was discussed at length with the primary physician Dr. Melgar. The patient can be maintained on aspirin at 81 mg once a day, may discontinue Coreg for now, continue IV Lasix 40 mg twice a day, Lipitor at 40 mg once a day, subcutaneous Lovenox 30 mg once a day, Norvasc 10 mg once a day, Plavix 75 mg once a day, Zestril 20 mg once a day. A call will be placed to Dr. Carlos if he prefers to continue followup with the patient as an inpatient or an outpatient. No invasive cardiac workup is justified at this time. Jarvis Morales MD
[2018-04-02 05:28] LABS: HEMOGLOBIN 8.7 g/dL (12.0-18.0); MEAN CORPUSCULAR HEMOGLOBIN 30.4 pg (27.0-31.0); MEAN CORPUSCULAR HGB CONC 33.4 g/dL (33.0-37.0); RBC 2.85 Mil/uL (4.40-5.90); RED CELL DISTRIBUTION WIDTH 14.7 % (11.5-14.5); WHITE BLOOD COUNT 6.7 K/uL (4.8-10.8)
[2018-04-02 05:32] LABS: CALCIUM 8.5 mg/dL (8.4-10.2)
--- NOTE | 2018-04-02 06:40 | CP.PCM.CON ---
History of Present Illness - History of Present Illness History of Present Illness: Podiatry consult note for Dr. Chung, 82 y/o M with a PMHx of DM2, HTN, CVA, asthma and Colon Cancer admitted to the hospital due to complaints of SOB. Podiatry was consulted on patient for pain to the right 2nd digit. Patient's grand daughter was at bedside, and states she does not recall if the patient stubbed his digit. 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 PMHx: Diastolic Heart Failure, COPD, CAD s/p stent x 4, CKD, IDDM, HTN, HLD, Colon CA s/p surgery (1961), CVA (1988 and 2017), left eye blindness/diabetic retinopathy PSHx: Cardiac Cath, Stents placement, Colon CA surgery (1961) - Type unclear FHx: NC SH: Lives with , kids, grandson. Pt quit smoking 10 years ago, used to smoke 1ppd x ~40 years. No alcohol and NO rec drugs. Review of Systems - Review of Systems All systems: reviewed and no additional remarkable complaints except Review of Systems: As per HPI Past Patient History - Infectious Disease Hx of Infectious Diseases: None - Tetanus Immunizations Tetanus Immunization: Unknown - Past Medical History & Family History Past Medical History?: Yes - Past Social History Smoking Status: Never Smoked - CARDIAC Hx Cardiac Disorders: Yes - PULMONARY Hx Respiratory Disorders: Yes - NEUROLOGICAL Hx Neurological Disorder: Yes - HEENT Hx HEENT Problems: Yes - RENAL Hx Chronic Kidney Disease: Yes - ENDOCRINE/METABOLIC Hx Endocrine Disorders: Yes - HEMATOLOGICAL/ONCOLOGICAL Hx AIDS: No Hx Human Immunodeficiency Virus (HIV): No - INTEGUMENTARY Hx Dermatological Problems: No - MUSCULOSKELETAL/RHEUMATOLOGICAL Hx Arthritis: Yes Hx Falls: Yes - GASTROINTESTINAL Hx Gastrointestinal Disorders: No - GENITOURINARY/GYNECOLOGICAL Hx Genitourinary Disorders: Yes - PSYCHIATRIC Hx Psychophysiologic Disorder: Yes Hx Substance Use: No - SURGICAL HISTORY Hx Coronary Stent: Yes (x4) - ANESTHESIA Hx Anesthesia: Yes Hx Anesthesia Reactions: No Hx Malignant Hyperthermia: No Meds Allergies/Adverse Reactions: Allergies Allergy/AdvReac Type Severity Reaction Status Date / Time morphine Allergy VOMITING Verified 03/31/18 23:08 - Medications Medications: Current Medications Albuterol/Ipratropium (Duoneb 3 Mg/0.5 Mg (3 Ml) Ud) 3 ml INH RQ4 PRN PRN Reason: Shortness of Breath Amlodipine Besylate (Norvasc) 10 mg PO DAILY [facility] Last Admin: 04/01/18 10:33 Dose: 10 mg Aspirin (Aspirin Chewable) 81 mg PO DAILY [facility] Last Admin: 04/01/18 09:10 Dose: 81 mg Atorvastatin Calcium (Lipitor) 40 mg PO DAILY [facility] Last Admin: 04/01/18 10:31 Dose: 40 mg Carvedilol (Coreg) 3.125 mg PO Q12 [facility] Last Admin: 04/01/18 21:30 Dose: 3.125 mg Clopidogrel Bisulfate (Plavix) 75 mg PO DAILY [facility] Last Admin: 04/01/18 09:10 Dose: 75 mg Dextrose (Dextrose 50% Inj) 0 ml IV STAT PRN; Protocol PRN Reason: Hypoglycemia Protocol Dextrose (Glutose 15) 0 gm PO ONCE PRN; Protocol PRN Reason: Hypoglycemia Protocol Enoxaparin Sodium (Lovenox) 30 mg SC DAILY [facility]; Protocol Last Admin: 04/01/18 10:31 Dose: 30 mg Ferrous Sulfate (Feosol) 325 mg PO DAILY [facility] Last Admin: 04/01/18 10:29 Dose: 325 mg Finasteride (Proscar) 5 mg PO DAILY [facility] Last Admin: 04/01/18 10:33 Dose: 5 mg Furosemide (Lasix) 20 mg IVP DAILY [facility] Glucagon (Glucagen Diagnostic Kit) 0 mg IM STAT PRN; Protocol PRN Reason: Hypoglycemia Protocol Hydralazine HCl (Apresoline) 10 mg IV Q6 PRN PRN Reason: Systolic Blood Pressure Hydralazine HCl (Apresoline) 10 mg PO Q8H [facility] Last Admin: 04/02/18 01:24 Dose: 10 mg Sodium Chloride (Sodium Chloride 0.9%) 1,000 mls @ 999 mls/hr IV .Q1H1M [facility] Stop: 04/02/18 10:56 Ceftriaxone Sodium 1 gm/ (Sodium Chloride) 100 mls @ 100 mls/hr IVPB DAILY [facility]; Protocol Last Admin: 04/01/18 17:51 Dose: 100 mls/hr Azithromycin 500 mg/ Sodium (Chloride) 250 mls @ 250 mls/hr IVPB DAILY [facility]; Protocol Last Admin: 01/29/19 17:51 Dose: 250 mls/hr Insulin Human Lispro (Humalog) 20 units SC BID [facility] Last Admin: 04/01/18 17:49 Dose: Not Given Insulin Human Lispro (Humalog) 0 units SC ACCU-CHECK [facility]RE[facility]; Protocol Last Admin: 04/01/18 23:10 Dose: Not Given Lisinopril (Zestril) 20 mg PO DAILY [facility] Last Admin: 04/01/18 09:16 Dose: 20 mg Fluticasone/Salmeterol (Advair Diskus 250/50) 1 puff IH Q12 [facility] Last Admin: 04/01/18 21:31 Dose: 1 inhaler Tamsulosin HCl (Flomax) 0.8 mg PO HS [facility] Last Admin: 04/01/18 21:31 Dose: 0.8 mg Physical Exam - Constitutional Appears: Well, Non-toxic, No Acute Distress - Head Exam Head Exam: ATRAUMATIC, NORMOCEPHALIC - Eye Exam Eye Exam: Normal appearance - Extremities Exam Additional comments: Bilateral Lower Extremity Exam VASC: DP and PT non-palpable, CFT less than 3 seconds X 10, TG warm to cool DERM: ecchymosis and erythema noted to the right 2nd digit, no malodor, no open wounds, no clinical signs of infection noted ORTHO: moderate pain on palpation to the right 2nd digit and pain with range of motion, MSK 5/5 bilaterally NEURO: grossly intact - Neurological Exam Neurological exam: Alert, Oriented x3 - Psychiatric Exam Psychiatric exam: Normal Affect, Normal Mood - Skin Skin Exam: Normal Color Results - Vital Signs Recent Vital Signs: Last Vital Signs Temp 99.2 F 04/02/18 06:07 Pulse 71 04/02/18 06:07 Resp 18 04/02/18 06:07 BP 165/68 H 04/02/18 06:07 Pulse Ox 100 04/02/18 06:07 - Labs Result Diagrams: 04/02/18 04:50 04/02/18 04:50 Labs: Laboratory Results - last 24 hr 04/01/18 04/01/18 04/01/18 06:28 06:40 12:58 WBC RBC Hgb Hct MCV MCH MCHC RDW Plt Count Sodium 140 Potassium 4.5 Chloride 105 Carbon Dioxide 26 Anion Gap 14 BUN 26 H Creatinine 1.6 H Est GFR ( Amer) 50 Est GFR (Non-Af Amer) 42 POC Glucose (mg/dL) 120 H Random Glucose 127 H Calcium 8.8 Phosphorus Magnesium Troponin I 0.0660 Procalcitonin < 0.05 L 04/01/18 04/01/18 04/01/18 12:58 16:05 20:49 WBC RBC Hgb Hct MCV MCH MCHC RDW Plt Count Sodium Potassium Chloride Carbon Dioxide Anion Gap BUN Creatinine Est GFR ( Amer) Est GFR (Non-Af Amer) POC Glucose (mg/dL) 143 H 186 H Random Glucose Calcium Phosphorus 2.9 Magnesium 1.7 Troponin I 0.0580 Procalcitonin 04/01/18 04/02/18 04/02/18 21:39 04:50 04:50 WBC 6.7 RBC 2.85 L Hgb 8.7 L Hct 25.9 L MCV 91.0 MCH 30.4 MCHC 33.4 RDW 14.7 H Plt Count 293 Sodium 138 Potassium 3.9 Chloride 108 H Carbon Dioxide 26 Anion Gap 8 L BUN 23 H Creatinine 1.7 H Est GFR ( Amer) 47 Est GFR (Non-Af Amer) 39 POC Glucose (mg/dL) 113 H Random Glucose 118 H Calcium 8.5 Phosphorus Magnesium Troponin I Procalcitonin 04/02/18 05:14 WBC RBC Hgb Hct MCV MCH MCHC RDW Plt Count Sodium Potassium Chloride Carbon Dioxide Anion Gap BUN Creatinine Est GFR ( Amer) Est GFR (Non-Af Amer) POC Glucose (mg/dL) 125 H Random Glucose Calcium Phosphorus Magnesium Troponin I Procalcitonin Assessment & Plan - Assessment and Plan (Free Text) Assessment: 82 y/o male patient seen and evaluated for right 2nd digit pain Plan: Patient seen and evaluated Plan discussed with Dr. Chung Ordered right foot x-ray to rule out fracture No other podiatric intervention at this time Will follow up with x-ray results and further treatment plan Thank you for the podiatry consult - Date & Time Date: 04/02/18 Time: 14:11
[2018-04-02] MEDS: Fluticasone-Salmeterol 250-50mcg Diskus IH SCH ×2 (09:12→22:58)
[2018-04-02] MEDS: Insulin Lispro (humaLOG) 100 Units/ml Inj SC SCH ×6 (09:17→22:59)
[2018-04-02] MEDS: Enoxaparin 30 mg Syringe SC SCH (09:21)
[2018-04-02] MEDS: Azithromycin 500 MG in Sodium Chloride 0.9% 250 ML IVPB SCH (11:15)
--- NOTE | 2018-04-02 12:08 | CP.PCM.PN ---
Subjective - Date & Time of Evaluation Date of Evaluation: 04/02/18 Time of Evaluation: 08:00 - Subjective Subjective: Patient seen and examined this morning. Denies chest pain, sob, cough, etc. Events reviewed on personnel monitor, no episodes of Bradycardia. Objective - Vital Signs/Intake and Output Vital Signs (last 24 hours): Temp Pulse Resp BP Pulse Ox 97.4 F L 79 20 188/67 H 100 04/02/18 08:51 04/02/18 09:41 04/02/18 08:51 04/02/18 09:41 04/02/18 08:51 - Medications Medications: Current Medications Albuterol/Ipratropium (Duoneb 3 Mg/0.5 Mg (3 Ml) Ud) 3 ml INH RQ4 PRN PRN Reason: Shortness of Breath Amlodipine Besylate (Norvasc) 10 mg PO DAILY [facility] Last Admin: 04/02/18 09:19 Dose: 10 mg Aspirin (Aspirin Chewable) 81 mg PO DAILY [facility] Last Admin: 04/02/18 09:13 Dose: 81 mg Atorvastatin Calcium (Lipitor) 40 mg PO DAILY [facility] Last Admin: 04/02/18 09:18 Dose: 40 mg Carvedilol (Coreg) 3.125 mg PO Q12 [facility] Last Admin: 04/02/18 09:15 Dose: 3.125 mg Clopidogrel Bisulfate (Plavix) 75 mg PO DAILY [facility] Last Admin: 04/02/18 09:20 Dose: 75 mg Dextrose (Dextrose 50% Inj) 0 ml IV STAT PRN; Protocol PRN Reason: Hypoglycemia Protocol Dextrose (Glutose 15) 0 gm PO ONCE PRN; Protocol PRN Reason: Hypoglycemia Protocol Enoxaparin Sodium (Lovenox) 30 mg SC DAILY [facility]; Protocol Last Admin: 04/02/18 09:21 Dose: 30 mg Ferrous Sulfate (Feosol) 325 mg PO DAILY [facility] Last Admin: 04/02/18 09:16 Dose: 325 mg Finasteride (Proscar) 5 mg PO DAILY [facility] Last Admin: 04/02/18 09:22 Dose: 5 mg Furosemide (Lasix) 20 mg IVP DAILY [facility] Last Admin: 04/02/18 09:32 Dose: 20 mg Furosemide (Lasix) 20 mg IVP DAILY [facility] Furosemide (Lasix) 40 mg IV BID [facility] Glucagon (Glucagen Diagnostic Kit) 0 mg IM STAT PRN; Protocol PRN Reason: Hypoglycemia Protocol Hydralazine HCl (Apresoline) 10 mg IV Q6 PRN PRN Reason: Systolic Blood Pressure Hydralazine HCl (Apresoline) 10 mg PO Q8H [facility] Last Admin: 04/02/18 09:41 Dose: 10 mg Ceftriaxone Sodium 1 gm/ (Sodium Chloride) 100 mls @ 100 mls/hr IVPB DAILY [facility]; Protocol Last Admin: 04/02/18 09:33 Dose: 100 mls/hr Azithromycin 500 mg/ Sodium (Chloride) 250 mls @ 250 mls/hr IVPB DAILY [facility]; Protocol Last Admin: 04/02/18 11:15 Dose: 250 mls/hr Insulin Human Lispro (Humalog) 20 units SC BID [facility] Last Admin: 04/02/18 09:18 Dose: Not Given Insulin Human Lispro (Humalog) 0 units SC ACCU-CHECK [facility]; Protocol Last Admin: 04/02/18 11:18 Dose: Not Given Lisinopril (Zestril) 20 mg PO DAILY [facility] Last Admin: 04/02/18 09:23 Dose: 20 mg Fluticasone/Salmeterol (Advair Diskus 250/50) 1 puff IH Q12 [facility] Last Admin: 04/02/18 09:12 Dose: 1 inhaler Tamsulosin HCl (Flomax) 0.8 mg PO HS [facility] Last Admin: 04/01/18 21:31 Dose: 0.8 mg - Labs Labs: 04/02/18 04:50 04/02/18 04:50 - Constitutional Appears: No Acute Distress, Cachectic - Head Exam Head Exam: NORMAL INSPECTION - Eye Exam Eye Exam: Normal appearance - ENT Exam ENT Exam: Mucous Membranes Moist - Respiratory Exam Respiratory Exam: Clear to Ausculation Bilateral. absent: Rales, Wheezes - Cardiovascular Exam Cardiovascular Exam: REGULAR RHYTHM, +S1, +S2. absent: Murmur - GI/Abdominal Exam GI & Abdominal Exam: Soft, Normal Bowel Sounds. absent: Tenderness - Extremities Exam Extremities Exam: absent: Pedal Edema Additional comments: Multiple well healed scabs scattered over lower extremities. Right foot- second digit peripheral ecchymosis, non tender, full ROM, Dorsal pedis pulse +2/2 - Neurological Exam Neurological Exam: Alert, Awake, Oriented x3 - Psychiatric Exam Psychiatric exam: Normal Affect - Skin Skin Exam: Normal Color Assessment and Plan - Assessment and Plan (Free Text) Assessment: 82 y/o M with a PMHx of DM2, HTN, CVA, and Colon Cancer was admitted for evaluation and management of dyspnea, found to have a consolidation on chest xray, elevated ProBNB, and elevated blood pressure PLAN: Community Acquired Pneumonia --Cxray: Increased infiltrate left base w/ trace left pleural effusion. Scattered interstitial-like changes. No pulmonary vascular congestion. --Afebrile, no leukocytosis --C/W Azithromycin and Ceftriaxone --Respiratory status stable-- reports he uses home O2 at night. Will get more details. Pt has been saturating in 100's on 2L Nasal Cannula CHF, Disastolic dysfunction, secondary to CAD --EKGs: ST-T waves, may be old findings. Troponin negative --Echo: EF normal, Grade 1 abnormal relaxation pattern, borderline dilated left atrium --Pro-BNP 4500-high --Cardiology consult, Dr Morales-- dc Coreg for now, Lasix 40mg IV BID, C/W ASA, Lipitor. F/U with Dr. 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 Valdivia
--- NOTE | 2018-04-02 15:20 | RAD ---
Date of service: 04/02/2018 PROCEDURE: Right Foot Radiographs. HISTORY: R 2nd toe chronic pain COMPARISON: None. FINDINGS: BONES: No fracture appreciated. Tiny inferior calcaneal spur. Trace calcaneal insertional Achilles enthesophyte. JOINTS: Minimal joint-space narrowing 1st metatarsal-phalangeal joint. SOFT TISSUES: Atherosclerotic vascular calcifications present. OTHER FINDINGS: None. IMPRESSION: No fracture or lytic lesion. Other findings as above.
--- NOTE | 2018-04-02 21:14 | PN ---
DATE: 04/02/2018 SUBJECTIVE: No reported significant bradycardia. The patient denies any chest pain or shortness of breath. PHYSICAL EXAMINATION: VITAL SIGNS: Blood pressure 155/61, heart rate 78, temperature 97.5, and respirations 20. HEENT: Pale conjunctiva. CHEST: Absent breath sounds over the bases. HEART: S1 and S2. Regular. EXTREMITIES: No edema. LABORATORY DATA: Today's hemoglobin and hematocrit 8.7 and 25.9. White count and platelet count are within normal limits. Today's SMA-7: Sodium 138, potassium 3.9, chloride 108, CO2 of 26, glucose 118, BUN 23, and creatinine 1.7. Right foot x-ray, no fracture or dislocations. ASSESSMENT: 1. Diastolic heart failure. 2. Hypertension. 3. A brief period of sinus bradycardia, required rapid response yesterday. 4. History of coronary artery disease and peripheral vascular disease, specifics are unavailable at this time. 5. Anemia. RECOMMENDATIONS: Continue hydralazine 10 mg every 8 hours, aspirin 81 mg once a day. Continue IV Rocephin and IV Zithromax. Continue Coreg 3.125 mg twice a day and Lasix 40 mg intravenously twice a day, Lipitor 40 mg once a day, subcutaneous Lovenox 30 mg once a day, Norvasc 10 mg once a day, Plavix 75 mg once a day. Conservative medical approach is recommended. Jarvis Morales MD
[2018-04-03 06:15] LABS: BASO % 0.5 % (0.0-2.0); EOS # 0.3 K/uL (0.0-0.7); EOS % 5.9 % (0.0-4.0); HEMOGLOBIN 9.2 g/dL (12.0-18.0); LYMPH # 0.6 K/uL (1.0-4.3); MEAN CELL VOLUME 91.2 fl (80.0-94.0); MEAN CORPUSCULAR HEMOGLOBIN 30.9 pg (27.0-31.0); MEAN CORPUSCULAR HGB CONC 33.9 g/dL (33.0-37.0); MEAN PLATELET VOLUME 8.9 fl (7.2-11.7); MONO # 0.5 K/uL (0.0-0.8); MONO % 8.7 % (0.0-10.0); NEUT # 4.2 K/uL (1.8-7.0); NEUT % 73.9 % (50.0-75.0); NRBC % 0.1 % (0.0-0.0); RBC 2.97 Mil/uL (4.40-5.90); RED CELL DISTRIBUTION WIDTH 14.7 % (11.5-14.5); WHITE BLOOD COUNT 5.7 K/uL (4.8-10.8)
[2018-04-03 06:27] LABS: CALCIUM 8.8 mg/dL (8.4-10.2)
[2018-04-03] MEDS: Fluticasone-Salmeterol 250-50mcg Diskus IH SCH (10:27)
[2018-04-03] MEDS: Enoxaparin 30 mg Syringe SC SCH (10:29)
[2018-04-03] MEDS: Insulin Lispro (humaLOG) 100 Units/ml Inj SC SCH ×3 (10:30→14:49)
[2018-04-03] MEDS: Azithromycin 500 MG in Sodium Chloride 0.9% 250 ML IVPB SCH (10:35)
[2018-04-03 11:52] VITALS: PULSE 74
--- NOTE | 2018-04-03 12:30 | CP.PCM.DIS ---
Provider - Provider Date of Admission: 04/01/18 03:26 Attending physician: Kristine Quiles MD Consults: 04/01/18 04:32 Cardiology Consult Stat Comment: Consulting Provider: Jarvis Morales Consulting Physician: Jarvis Morales Reason for Consult: acute CHF exacerbation 04/01/18 13:59 Nursing Referral for Palliative Care Routine Comment: Consulting Provider: Physician Instructions: Reason For Exam: colon cancer malignancy Nursing Referral for Wound Care Routine Comment: Physician Instructions: Reason For Exam: open wound on sacrum/buttocks 04/01/18 18:55 Podiatry Consult Routine Comment: Consulting Provider: Crispin Salazar Consulting Physician: Crispin Salazar Reason for Consult: R 2nd toe pain, chronic Time Spent in preparation of Discharge (in minutes): 35 Diagnosis - Discharge Diagnosis (1) Pneumonia Status: Resolved (2) Hypertensive emergency Status: Resolved (3) CHF exacerbation Status: Resolved (4) Bradycardia Status: Resolved (5) Physical debility Status: Chronic (6) CKD (chronic kidney disease) Status: Chronic (7) Anemia Status: Chronic Hospital Course - Lab Results Lab Results: Most Recent Lab Values WBC 5.7 K/uL (4.8-10.8) 04/03/18 05:45 RBC 2.97 Mil/uL (4.40-5.90) L 04/03/18 05:45 Hgb 9.2 g/dL (12.0-18.0) L 04/03/18 05:45 Hct 27.0 % (35.0-51.0) L 04/03/18 05:45 MCV 91.2 fl (80.0-94.0) 04/03/18 05:45 MCH 30.9 pg (27.0-31.0) 04/03/18 05:45 MCHC 33.9 g/dL (33.0-37.0) 04/03/18 05:45 RDW 14.7 % (11.5-14.5) H 04/03/18 05:45 Plt Count 308 K/uL (130-400) 04/03/18 05:45 MPV 8.9 fl (7.2-11.7) 04/03/18 05:45 Neut % (Auto) 73.9 % (50.0-75.0) 04/03/18 05:45 Lymph % (Auto) 11.0 % (20.0-40.0) L 04/03/18 05:45 [place] % (Auto) 8.7 % (0.0-10.0) 04/03/18 05:45 Eos % (Auto) 5.9 % (0.0-4.0) H 04/03/18 05:45 Baso % (Auto) 0.5 % (0.0-2.0) 04/03/18 05:45 Neut # (Auto) 4.2 K/uL (1.8-7.0) 04/03/18 05:45 Lymph # (Auto) 0.6 K/uL (1.0-4.3) L 04/03/18 05:45 [place] # (Auto) 0.5 K/uL (0.0-0.8) 04/03/18 05:45 Eos # (Auto) 0.3 K/uL (0.0-0.7) 04/03/18 05:45 Baso # (Auto) 0.0 K/uL (0.0-0.2) 04/03/18 05:45 Sodium 137 mmol/l (132-148) 04/03/18 05:45 Potassium 3.6 MMOL/L (3.6-5.0) 04/03/18 05:45 Chloride 101 mmol/L (98-107) 04/03/18 05:45 Carbon Dioxide 26 mmol/L (22-30) 04/03/18 05:45 Anion Gap 14 (10-20) 04/03/18 05:45 BUN 23 mg/dl (9-20) H 04/03/18 05:45 Creatinine 1.7 mg/dl (0.8-1.5) H 04/03/18 05:45 Est GFR ( Amer) 47 04/03/18 05:45 Est GFR (Non-Af Amer) 39 04/03/18 05:45 POC Glucose (mg/dL) 129 mg/dL (65-110) H 04/03/18 11:05 Random Glucose 142 mg/dL (75-110) H 04/03/18 05:45 Hemoglobin A1c 6.9 % (4.2-6.5) H 04/02/18 20:46 Calcium 8.8 mg/dL (8.4-10.2) 04/03/18 05:45 Phosphorus 2.8 mg/dl (2.5-4.5) 04/03/18 05:45 Magnesium 1.7 MG/DL (1.6-2.3) 04/03/18 05:45 Total Bilirubin 0.3 mg/dl (0.2-1.3) 04/01/18 00:53 AST 24 U/L (17-59) 04/01/18 00:53 ALT 34 U/L (21-72) 04/01/18 00:53 Alkaline Phosphatase 172 U/L (38-126) H D 04/01/18 00:53 Troponin I 0.0580 ng/mL (0.00-0.120) 04/01/18 20:49 NT-Pro-B Natriuret Pep 4500 pg/ml (0-900) H 04/01/18 00:53 Total Protein 6.6 G/DL (6.3-8.2) 04/01/18 00:53 Albumin 3.3 g/dL (3.5-5.0) L 04/01/18 00:53 Globulin 3.3 gm/dL (2.2-3.9) 04/01/18 00:53 Albumin/Globulin Ratio 1.0 (1.0-2.1) 04/01/18 00:53 Procalcitonin < 0.05 NG/ML (0.19-0.49) L 04/01/18 12:58 Influenza Typ A,B (EIA) Negative for flu a/b (NEGATIVE) 04/01/18 00:53 - Hospital Course Hospital Course: 82 y/o M with a PMHx of DM2, HTN, CVA, and Colon Cancer was with complaints of dyspnea, found to have a consolidation on chest xray, elevated ProBNP, and elevated blood pressure. During hospital admission, pt also encountered an episode of bradycardia. PLAN: Community Acquired Pneumonia --Cxray: Increased infiltrate left base w/ trace left pleural effusion. Scattered interstitial-like changes. No pulmonary vascular congestion. --Afebrile, no leukocytosis --Received 4 days Azithromycin and Ceftriaxone. Discharged home on 5 days of Azithromycin --Respiratory status stable-- reports he uses home O2 at night. Will get more details. Pt has been saturating in 100's. Acute CHF exacerbation, Disastolic dysfunction, secondary to CAD --Pro-BNP 4500-high --EKGs: ST-T waves, may be old findings. Troponin negative --Echo: EF normal, Grade 1 abnormal relaxation pattern, borderline dilated left atrium --Cardiology consult, Dr Morales-- Lasix increased to 40mg po daily, C/W ASA, Lipitor. Hypertensive Emergency --BP better controlled --Pt likely has chronically uncontrolled BP; BP slowly decreased to normotensive ---Antihypertensive medication adjusted and reviewed with daughter at bedside. 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 Pt and daughter stated that preferred home with PT services. Arrranged by Dextrine Mixer prior to Discharge PT scheduled for follow up with Dr. Manning on 04/07 at 10:00am. Discussed case with Dr. Valdivia Discharge Exam - Head Exam Head Exam: ATRAUMATIC, NORMOCEPHALIC - Eye Exam Eye Exam: Normal appearance - ENT Exam ENT Exam: Mucous Membranes Moist - Respiratory Exam Respiratory Exam: Rales (scattered). absent: Accessory Muscle Use, Rhonchi, Wheezes - Cardiovascular Exam Cardiovascular Exam: REGULAR RHYTHM, +S1, +S2. absent: Systolic Murmur - GI/Abdominal Exam GI & Abdominal Exam: Normal Bowel Sounds, Soft. absent: Tenderness - Neurological Exam Neurological exam: Alert, Oriented x3 - Psychiatric Exam Psychiatric exam: Normal Affect - Skin Skin Exam: Normal Color Discharge Plan - Discharge Medications Prescriptions: Azithromycin [Zithromax Tri-Kana] 500 mg PO DAILY 5 Days tablet Carvedilol [Coreg] 3.125 mg PO BID 30 Days #60 tab Furosemide [Lasix] 40 mg PO DAILY 30 Days tablet hydrALAZINE [Apresoline] 10 mg PO Q8H 30 Days tab Lisinopril [Zestril] 40 mg PO DAILY 30 Days #30 tab - Follow Up Plan Condition: STABLE Disposition: HOME/ ROUTINE Instructions: Heart Failure, Adult (DC), Pneumonia, Adult (DC), Heart Failure (DC), Heart Failure (GEN), Pacemaker (DC), Pacemaker (GEN), Pulmonary Edema (DC), Pulmonary Edema (GEN), Ascites (DC), Ascites (GEN) Additional Instructions: follow up appt in the clinic saturday04/07/18 10:00am with Referrals: [facility] [place] [Outside]
[2018-04-03 12:46] VITALS: RESP 20; TEMP 98.2; O2SAT 100
[2018-04-03 15:56] VITALS: BP 161/72
--- NOTE | 2018-04-03 19:24 | PN ---
DATE: 04/03/2018 SUBJECTIVE: The patient denies any chest pain or shortness of breath. PHYSICAL EXAMINATION: VITAL SIGNS: Blood pressure 185/66, pulse 74, temperature 98.2, and respirations 20. HEENT: Pale conjunctivae. CHEST: Clear. HEART: S1 and S2, regular. EXTREMITIES: No edema. LABORATORY DATA: Hemoglobin and hematocrit are 9.1 and 27, white count 5.7 and platelet count 308,000. Today's BUN and creatinine 23 and 1.7 respectively. ASSESSMENT: 1. Mild renal insufficiency. 2. Diastolic heart failure. 3. Hypertension. 4. A brief period of bradycardia on the first day of hospitalization. RECOMMENDATIONS: Continue current IV Zithromax and IV Rocephin. Continue hydralazine 10 mg by mouth every 8 hours, Feosol one tablet once a day. Discontinue IV Lasix. Continue Lipitor 40 mg once a day, Norvasc 10 mg once a day, Plavix 75 mg once a day, Zestril 40 mg once a day. The case was discussed with the patient's daughter at the bedside. The patient has seen Dr. Dani Carlos as an outpatient; stopped going for around one year and the patient was advised to continue follow up with Dr. Carlos, mall manager as an outpatient. Jarvis Morales MD
--- NOTE | 2018-04-08 08:49 | CARD ---
APPROVED REPORT Date of service: 03/31/2018 EKG Measurement Heart [id number] <Conclusion> Normal sinus rhythm Possible Left atrial enlargement Left ventricular hypertrophy T wave abnormality, consider lateral ischemia Abnormal ECG
== END 2018-04-03 16:00 | disposition home or self-care (01) ==
LOC: H.ER 23:03 → H.ERHOLD 04-01 03:26 → H.TEL 04-01 09:31
PROVIDERS: ADMIT Internal Medicine; ATTEND Internal Medicine
DX: I13.0 Hypertensive heart and chronic kidney disease with heart failure and stage 1 through stage 4 chronic kidney disease, or unspecified chronic kidney disease (principal); E87.5 Hyperkalemia; I25.10 Atherosclerotic heart disease of native coronary artery without angina pectoris; Z95.5 Presence of coronary angioplasty implant and graft; E78.5 Hyperlipidemia, unspecified; E78.00 Pure hypercholesterolemia, unspecified; Z87.891 Personal history of nicotine dependence; E11.319 Type 2 diabetes mellitus with unspecified diabetic retinopathy without macular edema; Z79.4 Long term (current) use of insulin; I69.351 Hemiplegia and hemiparesis following cerebral infarction affecting right dominant side; E11.22 Type 2 diabetes mellitus with diabetic chronic kidney disease; Z85.038 Personal history of other malignant neoplasm of large intestine; H54.62 Unqualified visual loss, left eye, normal vision right eye; R00.1 Bradycardia, unspecified; E11.51 Type 2 diabetes mellitus with diabetic peripheral angiopathy without gangrene; N18.3 Chronic kidney disease, stage 3 (moderate); M79.674 Pain in right toe(s); I16.1 Hypertensive emergency; R53.81 Other malaise; I50.33 Acute on chronic diastolic (congestive) heart failure; J18.9 Pneumonia, unspecified organism; D63.8 Anemia in other chronic diseases classified elsewhere; J44.0 Chronic obstructive pulmonary disease with (acute) lower respiratory infection; Z23 Encounter for immunization
CPT/HCPCS: 36415; 71045; 71046; 73630; 80048; 80053; 82948; 83036; 83735; 83880; 84100; 84145; 84484; 85025; 85027; 87804; 90674; 93005; 94640; 96365; 96366; 96367; 96372; 96375; 96376; 97162; 97166; 99283; G0008; G0378; G8978; G8979; G8987; G8988; J0360; J0456; J0696; J1650; J1940

== ENCOUNTER 2018-05-13 13:03 | Observation (INO) | payer MEDICARE, OTHER ==
[2018-05-13 13:03] VITALS: BMI 20.5
[2018-05-13 14:28] LABS: VENOUS BLOOD GAS BASE EXCESS 2.6 mmol/L (0.0-2.0); VENOUS BLOOD GAS PCO2 57 mmHg (40-60); VENOUS BLOOD GAS PO2 17 mm/Hg (30-55); VENOUS BLOOD PH 7.32 (7.32-7.43)
[2018-05-13 14:28] LABS: BASO % 0.7 % (0.0-2.0); EOS # 0.5 K/uL (0.0-0.7); EOS % 7.1 % (0.0-4.0); HEMOGLOBIN 10.4 g/dL (12.0-18.0); LYMPH % 14.5 % (20.0-40.0); MEAN CELL VOLUME 92.1 fl (80.0-94.0); MEAN CORPUSCULAR HEMOGLOBIN 30.9 pg (27.0-31.0); MEAN CORPUSCULAR HGB CONC 33.5 g/dL (33.0-37.0); MEAN PLATELET VOLUME 8.8 fl (7.2-11.7); MONO # 0.5 K/uL (0.0-0.8); NEUT # 4.7 K/uL (1.8-7.0); NEUT % 69.7 % (50.0-75.0); NRBC % 0.1 % (0.0-0.0); RBC 3.37 Mil/uL (4.40-5.90); RED CELL DISTRIBUTION WIDTH 15.1 % (11.5-14.5); WHITE BLOOD COUNT 6.8 K/uL (4.8-10.8)
[2018-05-13 14:38] LABS: ALB/GLOB RATIO 1.2 (1.0-2.1); ALBUMIN 3.9 g/dL (3.5-5.0); CALCIUM 9.8 mg/dL (8.4-10.2)
--- NOTE | 2018-05-13 14:38 | ED PDOC ---
HPI: General Adult Time Seen by Provider: 05/13/18 13:28 Chief Complaint (Nursing): Dizziness/Lightheaded Chief Complaint (Provider): Confusion History Per: Patient, Family (granddaughter) Additional Complaint(s): 83yo male sent to ER from clinic for evaluation due to sudden confusion, diaphoresis and nausea. Patient accompanied by family member who states patient was feeling fine this morning. Patient has a history of stroke with residual ri ght sided weakness; also has dementia. Patient is currently at baseline and offers no additional complaints. PMD: [facility] NIHSS Stroke Scale - Date/Time Evaluation Performed Date Performed: 05/13/18 Time Performed: 13:20 When Was NIHSS Performed: Baseline (patient alert and oriented x 2; unsure of year or month; patient at baseline affect per family member) - How Severe is the Stroke Level of Consciousness: 0=Alert LOC to Questions: 0=Both comments correct LOC to commands: 0=Obeys both correctly Best Gaze: 0=Normal Visual: 0=No visual loss Facial: 0=Normal Motor Arm - Left: 0=No drift Motor Arm - Right: 0=No drift Motor Leg - Left: 0=No drift Motor Leg - Right: 0=No drift Limb Ataxia: 0=Absent Sensory: 0=Normal Best Language: 0=No aphasia Dysarthia: 0=Normal articulation Extinction & Inattention (Neglect): 0=Normal, no object Score: 0 Past Medical History Reviewed: Historical Data, Nursing Documentation, Vital Signs Vital Signs: Last Vital Signs Temp 98 F 05/13/18 13:04 Pulse 61 05/13/18 13:04 Resp 18 05/13/18 13:04 BP 156/48 H 05/13/18 13:04 Pulse Ox 98 05/13/18 13:04 - Medical History PMH: Arthritis, CAD, CHF, COPD, CVA (with right side weakness), Diabetes (type II), HTN, Hypercholesterolemia, Malignancy (colon), Chronic Kidney Disease, TIA (Per history in ~1988) Denies: HIV - Surgical History Surgical History: Coronary Stent (x4) - Family History Family History: States: Unknown Family Hx - Home Medications Home Medications: Ambulatory Orders Medication Instructions Recorded Aspirin [Aspirin Chewable] 81 mg PO DAILY #30 chew 09/12/17 Clopidogrel [Plavix] 75 mg PO DAILY #30 tab 09/12/17 Ferrous Sulfate [Feosol] 325 mg PO TID 3 Days #30 tab 09/12/17 Finasteride [Proscar] 5 mg PO DAILY #30 tab 09/12/17 Fluticasone/Salmeterol 250/50 1 puff IH Q12 #1 puff 09/12/17 [Advair Diskus 250/50] amLODIPine [Norvasc] 10 mg PO DAILY #30 tab 09/12/17 Insulin Aspart, Recombinant 20 unit SC BID 10/16/17 [Novolog] Carvedilol [Coreg] 3.125 mg PO BID 30 Days #60 tab 04/03/18 Furosemide [Lasix] 40 mg PO DAILY 30 Days tablet 04/03/18 Lisinopril [Zestril] 40 mg PO DAILY 30 Days #30 tab 04/03/18 hydrALAZINE [Apresoline] 10 mg PO Q8H 30 Days tab 04/03/18 Albuterol Sulfate [Ventolin Hfa] 2 puff IH Q6 PRN 05/13/18 Atorvastatin [Lipitor] 40 mg PO HS 05/13/18 Tamsulosin [Flomax] 0.4 mg PO HS 05/13/18 - Allergies Allergies/Adverse Reactions: Allergies Allergy/AdvReac Type Severity Reaction Status Date / Time morphine Allergy VOMITING Verified 05/13/18 13:07 Review of Systems ROS Statement: Except As Marked, All Systems Reviewed And Found Negative Constitutional: Positive for: Fever, Sweats Gastrointestinal: Positive for: Nausea Neurological: Positive for: Confusion Physical Exam - Reviewed Nursing Documentation Reviewed: Yes Vital Signs Reviewed: Yes - Physical Exam Appears: Positive for: Non-toxic, No Acute Distress Head Exam: Positive for: ATRAUMATIC, NORMAL INSPECTION, NORMOCEPHALIC Skin: Positive for: Normal Color, Warm Eye Exam: Positive for: EOMI, Other (right pupi 2mm; left pupil 4mm (grand daughter states patient has history of cataract in left eye)) Neck: Positive for: Normal, Painless ROM, Supple Cardiovascular/Chest: Positive for: Regular Rate, Rhythm. Negative for: Murmur Respiratory: Positive for: Normal Breath Sounds. Negative for: Wheezing, Resp iratory Distress Gastrointestinal/Abdominal: Positive for: Normal Exam, Soft. Negative for: Tenderness Back: Positive for: Normal Inspection Extremity: Positive for: Normal ROM Neurological/Psych: Positive for: Awake, Alert, Oriented - Laboratory Results Result Diagrams: 05/13/18 14:05 05/13/18 14:05 Lab Results: pO2 17 mm/Hg (30-55) L 05/13/18 13:40 VBG pH 7.32 (7.32-7.43) 05/13/18 13:40 VBG pCO2 57 mmHg (40-60) 05/13/18 13:40 VBG HCO3 25.7 mmol/L 05/13/18 13:40 VBG Total CO2 31.1 mmol/L (22-28) H 05/13/18 13:40 VBG O2 Sat (Calc) 31.4 % (40-65) L 05/13/18 13:40 VBG Base Excess 2.6 mmol/L (0.0-2.0) H 05/13/18 13:40 VBG Potassium 4.2 mmol/L (3.6-5.2) 05/13/18 13:40 A-a O2 Difference 61.0 mm/Hg 05/13/18 13:40 Sodium 140.0 mmol/L (132-148) 05/13/18 13:40 Chloride 107.0 mmol/L (98-107) 05/13/18 13:40 Glucose 155 mg/dL (75-110) H 05/13/18 13:40 Lactate 0.7 mmol/L (0.7-2.1) 05/13/18 13:40 FiO2 21.0 % 05/13/18 13:40 Crit Value Called To Md abhijeet kelsey 05/13/18 13:40 Crit Value Called By Jaye 05/13/18 13:40 Crit Value Read Back Y 05/13/18 13:40 Blood Gas Notified Time 1428 05/13/18 13:40 - ECG O2 Sat by Pulse Oximetry: 98 (ra) Pulse Ox Interpretation: Normal Medical Decision Making Medical Decision Making: Stroke scale 0x Workup for nausea, vomiting and worsened AMS which has resolved. Plan: -- labs -- EKG -- Head CT -- Urinalysis 1630 CT Head FINDINGS: HEMORRHAGE: No intracranial hemorrhage. BRAIN: Good corticomedullary differentiation is seen. Reiterated diffuse cerebral atrophy and chronic microangiopathy. Chronic infarct left frontal lobe reiterated as well as small chronic infarct left occipital lobe.. No interval cortical lucency appreciated. No suspicious extra-axial fluid collection is identified and the midline brain anatomy appears grossly nonfocal as imaged. No mass effect identified. VENTRICLES: Unremarkable. No hydrocephalus. CALVARIUM: Unremarkable. PARANASAL SINUSES: Unremarkable as visualized. No significant inflammatory changes. MASTOID AIR CELLS: Unremarkable as visualized. No inflammatory changes. OTHER FINDINGS: None. IMPRESSION: Chronic infarcts left frontal and occipital lobes reiterated. No definite acute intracranial findings in the interval. Stable age related neuro degenerative changes are reiterated, appropriate for age. Labs reviewed, patient with SONIA on CKD Elevated BNP noted No obvious cause for AMS Patient to be evaluated by family practice resident for probable admission. 1648 patient seen and evaluated by resident, patient to be admitted for observation under Dr. Vincent Scribe Attestation: Documented by Adrienne Perkins acting as a scribe for Leslie Fernando MD. Provider Attestation: All medical record entries made by the Scribe were at my direction and perso leigh dictated by me. I have reviewed the chart and agree that the record accurately reflects my personal performance of the history, physical exam, medical decision making, and the department course for this patient. I have also personally directed, reviewed, and agree with the discharge instructions and disposition. Disposition - Clinical Impression Clinical Impression: Dizzy spells, CKD (chronic kidney disease), CHF (congestive heart failure) - Disposition Disposition Time: 16:48 Condition: FAIR
--- NOTE | 2018-05-13 15:49 | CT ---
Date of service: 05/13/2018 PROCEDURE: CT HEAD WITHOUT CONTRAST. HISTORY: dizziness/AMS COMPARISON: Noncontrast head CT 10/16/2017. TECHNIQUE: Axial computed tomography images were obtained through the head/brain without intravenous contrast. Radiation dose: Total exam DLP = 804.03 mGy-cm. This CT exam was performed using one or more of the following dose reduction techniques: Automated exposure control, adjustment of the mA and/or kV according to patient size, and/or use of iterative reconstruction technique. FINDINGS: HEMORRHAGE: No intracranial hemorrhage. BRAIN: Good corticomedullary differentiation is seen. Reiterated diffuse cerebral atrophy and chronic microangiopathy. Chronic infarct left frontal lobe reiterated as well as small chronic infarct left occipital lobe.. No interval cortical lucency appreciated. No suspicious extra-axial fluid collection is identified and the midline brain anatomy appears grossly nonfocal as imaged. No mass effect identified. VENTRICLES: Unremarkable. No hydrocephalus. CALVARIUM: Unremarkable. PARANASAL SINUSES: Unremarkable as visualized. No significant inflammatory changes. MASTOID AIR CELLS: Unremarkable as visualized. No inflammatory changes. OTHER FINDINGS: None. IMPRESSION: Chronic infarcts left frontal and occipital lobes reiterated. No definite acute intracranial findings in the interval. Stable age related neuro degenerative changes are reiterated, appropriate for age.
[2018-05-13 16:57] LABS: SQUAMOUS EPITHIAL < 1 /hpf (0-5); URINE BACTERIA RARE (<OCC); URINE BILIRUBIN NEGATIVE (NEGATIVE); URINE BLOOD NEGATIVE (NEGATIVE); URINE CLARITY CLEAR (Clear); URINE COLOR YELLOW (YELLOW); URINE GLUCOSE (UA) 50 mg/dL (NEGATIVE); URINE LEUKOCYTE ESTERASE NEG Leu/uL (Negative); URINE PROTEIN 100 mg/dL (NEGATIVE); URINE UROBILINOGEN 0.2-1.0 mg/dL (0.2-1.0)
--- NOTE | 2018-05-13 17:52 | RAD ---
Date of service: 05/13/2018 HISTORY: Cough. COMPARISON: 04/01/2018. TECHNIQUE: Chest PA and lateral FINDINGS: LUNGS: No active pulmonary disease. PLEURA: No significant pleural effusion identified. No pneumothorax apparent. CARDIOVASCULAR: No aortic atherosclerotic calcification present. Normal cardiac size. No pulmonary vascular congestion. OSSEOUS STRUCTURES: No significant abnormalities. VISUALIZED UPPER ABDOMEN: Normal. OTHER FINDINGS: None. IMPRESSION: No active disease. No significant interval change compared to the prior examination(s).
[2018-05-13] MEDS ORDERED: Albuterol-Ipratrop 3 mg / 0.5 (3 ml) UD INH PRN (18:44)
--- NOTE | 2018-05-13 18:47 | CP.PCM.HP ---
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 At the time of my evaluation, patient's granddaughter was not present and was translated by ED RN Elisa. Patient reports his sysptoms resolved. Patient currently denies any chest pain, dyspnea, abdominal pain,nausea, vomiting, dysuria, fever or chills. In ED, patient was oriented to person and place but not to time. NIHSS 0. Head CT shows no acute pathology. Patient was found to have elevated ProBNP 3080. Patient is admitted for evaluation of AMS and CHF exacerbation. PCP: [facility] PMHx: Diastolic Heart Failure, COPD, CAD s/p stent x 4, CKD, IDDM, HTN, HLD, Colon CA s/p surgery (1961), CVA (1988 and 2017), left eye blindness/diabetic retinopathy PSHx: Cardiac Cath, Stents placement, Colon CA surgery (1961) - Type unclear FHx: Non contributory SHx: Lives with , kids, grandson. Pt quit smoking 10 years ago, used to smoke 1ppd x ~40 years. No alcohol and NO rec drugs. Allergy: Morphine Meds: Lasix 40mg PO daily Norvasc 10mg PO daily Albuterol Sulfate Neb PRN Novolog 20 units SC BID Plavix 75mg PO daily Lipitor 40mg PO daily Proscar 5mg PO daily Aspirin 81mg PO daily Feosol 325mg PO daily Flomax 0.4mg PO HS Advair 250/50 1 puff twice daily Present on Admission - Present on Admission Any Indicators Present on Admission: No History of DVT/PE: No Review of Systems - Review of Systems Review of Systems: All 12 systems reviewed and negative except as mentioned in HPI Past Patient History - Infectious Disease Hx of Infectious Diseases: None - Tetanus Immunizations Tetanus Immunization: Unknown - Past Medical History & Family History Past Medical History?: Yes - Past Social History Smoking Status: Never Smoked - CARDIAC Hx Congestive Heart Failure: Yes Hx Hypercholesterolemia: Yes Hx Hypertension: Yes - PULMONARY Hx Chronic Obstructive Pulmonary Disease (COPD): Yes - NEUROLOGICAL Hx Transient Ischemic Attacks (TIA): Yes (Per history in ~1988) - HEENT Hx HEENT Problems: Yes - RENAL Hx Chronic Kidney Disease: Yes - ENDOCRINE/METABOLIC Hx Endocrine Disorders: Yes - HEMATOLOGICAL/ONCOLOGICAL Hx Human Immunodeficiency Virus (HIV): No - INTEGUMENTARY Hx Dermatological Problems: No - MUSCULOSKELETAL/RHEUMATOLOGICAL Hx Arthritis: Yes - GASTROINTESTINAL Hx Gastrointestinal Disorders: No - GENITOURINARY/GYNECOLOGICAL Hx Genitourinary Disorders: Yes - PSYCHIATRIC Hx Psychophysiologic Disorder: Yes Hx Substance Use: No - SURGICAL HISTORY Hx Coronary Stent: Yes (x4) - ANESTHESIA Hx Anesthesia: Yes Hx Anesthesia Reactions: No Hx Malignant Hyperthermia: No Meds Allergies/Adverse Reactions: Allergies Allergy/AdvReac Type Severity Reaction Status Date / Time morphine Allergy VOMITING Verified 05/13/18 13:07 Physical Exam - Constitutional Appears: No Acute Distress, Chronically Ill - Head Exam Head Exam: NORMAL INSPECTION - Eye Exam Eye Exam: Normal appearance - ENT Exam ENT Exam: Mucous Membranes Moist - Respiratory Exam Respiratory Exam: Rales (B/L lower lung field), NORMAL BREATHING PATTERN. absent: Rhonchi, Wheezes, Respiratory Distress - Cardiovascular Exam Cardiovascular Exam: REGULAR RHYTHM, +S1, +S2 - GI/Abdominal Exam GI & Abdominal Exam: Normal Bowel Sounds, Soft. absent: Rebound, Tenderness - Extremities Exam Extremities exam: Positive for: normal inspection. Negative for: calf tenderness, pedal edema - Neurological Exam Neurological exam: Alert Additional comments: Oriented x 2 RUE strength 4/5 ( hx cva w/ right sided residual weakness), left UE streght 5/5 LE strength 5/5 - Psychiatric Exam Psychiatric exam: Normal Affect - Skin Skin Exam: Normal Color Results - Vital Signs Recent Vital Signs: Last Vital Signs Temp 98 F 05/13/18 13:04 Pulse 61 05/13/18 13:04 Resp 18 05/13/18 13:04 BP 223/93 H 05/13/18 18:44 Pulse Ox 98 05/13/18 16:49 - Labs Result Diagrams: 05/13/18 14:05 05/13/18 14:05 Labs: Laboratory Results - last 24 hr 03/12/19 03/12/19 03/12/19 13:40 14:05 14:05 WBC 6.8 RBC 3.37 L Hgb 10.4 L Hct 31.0 L MCV 92.1 MCH 30.9 MCHC 33.5 RDW 15.1 H Plt Count 363 MPV 8.8 Neut % (Auto) 69.7 Lymph % (Auto) 14.5 L [place] % (Auto) 8.0 Eos % (Auto) 7.1 H Baso % (Auto) 0.7 Neut # (Auto) 4.7 Lymph # (Auto) 1.0 [place] # (Auto) 0.5 Eos # (Auto) 0.5 Baso # (Auto) 0.0 pO2 17 L VBG pH 7.32 VBG pCO2 57 VBG HCO3 25.7 VBG Total CO2 31.1 H VBG O2 Sat (Calc) 31.4 L VBG Base Excess 2.6 H VBG Potassium 4.2 A-a O2 Difference 61.0 Sodium 140.0 140 Chloride 107.0 106 Glucose 155 H Lactate 0.7 FiO2 21.0 Crit Value Called To Md abhijeet kelsey Crit Value Called By 15 Crit Value Read Back Y Blood Gas Notified Time 1428 Potassium 4.2 Carbon Dioxide 26 Anion Gap 12 BUN 36 H Creatinine 1.9 H Est GFR ( Amer) 41 Est GFR (Non-Af Amer) 34 Random Glucose 152 H Calcium 9.8 Total Bilirubin 0.3 AST 29 ALT 31 Alkaline Phosphatase 165 H Troponin I NT-Pro-B Natriuret Pep 3080 H Total Protein 7.4 Albumin 3.9 Globulin 3.4 Albumin/Globulin Ratio 1.2 Venous Blood Potassium 4.2 Urine Color Urine Clarity Urine pH Ur Specific [place] Urine Protein Urine Glucose (UA) Urine Ketones Urine Blood Urine Nitrate Urine Bilirubin Urine Urobilinogen Ur Leukocyte Esterase Urine RBC (Auto) Urine Microscopic WBC Ur Squamous Epith Cells Urine Bacteria Hyaline Casts Influenza Typ A,B (EIA) 05/13/18 05/13/18 05/13/18 16:43 16:43 17:07 WBC RBC Hgb Hct MCV MCH MCHC RDW Plt Count MPV Neut % (Auto) Lymph % (Auto) [place] % (Auto) Eos % (Auto) Baso % (Auto) Neut # (Auto) Lymph # (Auto) [place] # (Auto) Eos # (Auto) Baso # (Auto) pO2 VBG pH VBG pCO2 VBG HCO3 VBG Total CO2 VBG O2 Sat (Calc) VBG Base Excess VBG Potassium A-a O2 Difference Sodium Chloride Glucose Lactate FiO2 Crit Value Called To Crit Value Called By Crit Value Read Back Blood Gas Notified Time Potassium Carbon Dioxide Anion Gap BUN Creatinine Est GFR ( Amer) Est GFR (Non-Af Amer) Random Glucose Calcium Total Bilirubin AST ALT Alkaline Phosphatase Troponin I 0.0440 NT-Pro-B Natriuret Pep Total Protein Albumin Globulin Albumin/Globulin Ratio Venous Blood Potassium Urine Color Yellow Urine Clarity Clear Urine pH 6.0 Ur Specific [place] 1.011 Urine Protein 100 Urine Glucose (UA) 50 Urine Ketones Negative Urine Blood Negative Urine Nitrate Negative Urine Bilirubin Negative Urine Urobilinogen 0.2-1.0 Ur Leukocyte Esterase Neg Urine RBC (Auto) 3 Urine Microscopic WBC 1 Ur Squamous Epith Cells < 1 Urine Bacteria Rare Hyaline Casts 3-5 H Influenza Typ A,B (EIA) Negative for flu a/b Assessment & Plan - Assessment and Plan (Free Text) Assessment: 82 year old Male with a PMHx of CAD, HFpEF, DM2, HTN, CVA with right sided residual weakness, COPD and Colon Cancer sent from [facility] clinic for evaluation of sudden onset of confusion, diaphoresis, nausea and vomiting while in the clinic. In ED, patient was oriented to person and place but not to time. NIHSS 0. Head CT shows no acute pathology. Patient was found to have elevated ProBNP 3080. Patient is admitted for evaluation of AMS and CHF exacerbation PLAN: Altered mental status: -resolved -NIHSS 0 -Head CT: IMPRESSION:Chronic infarcts left frontal and occipital lobes reiterated. No definite acute intracranial findings in the interval. Stable age related neuro degenerative changes are reiterated, appropriate for age -Troponin x 1 neg -ECG: NSR@ [address] or T wave changes -f/u troponin x 2 -f/u AM labs Elevated proBNP -hx HFpEF -Last Echocardiogram 02/05/18: LVEF 55-65%, grade I-abnormal relaxation pattern, abnormal global LV strain. -s/p lasix 40 mg IVP in ed -c/w laxis 40 mg IVP -f/u am labs CKD stage 3B -stable/baseline -avoid nephrotoxic agents HTN/Hx of CAD --Chronic --Home meds resumed HX COPD -stable -duoneb q4hr prn -c/w home medications IDDM --C/w Home insulin --Home meds resumed --HBA1C 6.9 on 04/02/18 --Insulin Sliding Scale DVT Prophylaxis --SCD's --Lovenox 40mg SC daily Plan discussed with Dr. Carlton Scales, [id number] <Suraj Vincent D - Last Filed: 05/13/18 20:11> Results - Vital Signs Recent Vital Signs: Last Vital Signs Temp 97.3 F L 05/13/18 19:55 Pulse 77 05/13/18 19:55 Resp 20 05/13/18 19:55 BP 223/93 H 05/13/18 18:44 Pulse Ox 95 05/13/18 19:55 - Labs Result Diagrams: 05/13/18 14:05 05/13/18 14:05 Labs: Laboratory Results - last 24 hr 05/13/18 05/13/18 05/13/18 13:40 14:05 14:05 WBC 6.8 RBC 3.37 L Hgb 10.4 L Hct 31.0 L MCV 92.1 MCH 30.9 MCHC 33.5 RDW 15.1 H Plt Count 363 MPV 8.8 Neut % (Auto) 69.7 Lymph % (Auto) 14.5 L [place] % (Auto) 8.0 Eos % (Auto) 7.1 H Baso % (Auto) 0.7 Neut # (Auto) 4.7 Lymph # (Auto) 1.0 [place] # (Auto) 0.5 Eos # (Auto) 0.5 Baso # (Auto) 0.0 pO2 17 L VBG pH 7.32 VBG pCO2 57 VBG HCO3 25.7 VBG Total CO2 31.1 H VBG O2 Sat (Calc) 31.4 L VBG Base Excess 2.6 H VBG Potassium 4.2 A-a O2 Difference 61.0 Sodium 140.0 140 Chloride 107.0 106 Glucose 155 H Lactate 0.7 FiO2 21.0 Crit Value Called To Md abhijeet kelsey Crit Value Called By 15 Crit Value Read Back Y Blood Gas Notified Time 1428 Potassium 4.2 Carbon Dioxide 26 Anion Gap 12 BUN 36 H Creatinine 1.9 H Est GFR ( Amer) 41 Est GFR (Non-Af Amer) 34 Random Glucose 152 H Calcium 9.8 Total Bilirubin 0.3 AST 29 ALT 31 Alkaline Phosphatase 165 H Troponin I NT-Pro-B Natriuret Pep 3080 H Total Protein 7.4 Albumin 3.9 Globulin 3.4 Albumin/Globulin Ratio 1.2 Venous Blood Potassium 4.2 Urine Color Urine Clarity Urine pH Ur Specific [place] Urine Protein Urine Glucose (UA) Urine Ketones Urine Blood Urine Nitrate Urine Bilirubin Urine Urobilinogen Ur Leukocyte Esterase Urine RBC (Auto) Urine Microscopic WBC Ur Squamous Epith Cells Urine Bacteria Hyaline Casts Influenza Typ A,B (EIA) 05/13/18 05/13/18 05/13/18 16:43 16:43 17:07 WBC RBC Hgb Hct MCV MCH MCHC RDW Plt Count MPV Neut % (Auto) Lymph % (Auto) [place] % (Auto) Eos % (Auto) Baso % (Auto) Neut # (Auto) Lymph # (Auto) [place] # (Auto) Eos # (Auto) Baso # (Auto) pO2 VBG pH VBG pCO2 VBG HCO3 VBG Total CO2 VBG O2 Sat (Calc) VBG Base Excess VBG Potassium A-a O2 Difference Sodium Chloride Glucose Lactate FiO2 Crit Value Called To Crit Value Called By Crit Value Read Back Blood Gas Notified Time Potassium Carbon Dioxide Anion Gap BUN Creatinine Est GFR ( Amer) Est GFR (Non-Af Amer) Random Glucose Calcium Total Bilirubin AST ALT Alkaline Phosphatase Troponin I 0.0440 NT-Pro-B Natriuret Pep Total Protein Albumin Globulin Albumin/Globulin Ratio Venous Blood Potassium Urine Color Yellow Urine Clarity Clear Urine pH 6.0 Ur Specific [place] 1.011 Urine Protein 100 Urine Glucose (UA) 50 Urine Ketones Negative Urine Blood Negative Urine Nitrate Negative Urine Bilirubin Negative Urine Urobilinogen 0.2-1.0 Ur Leukocyte Esterase Neg Urine RBC (Auto) 3 Urine Microscopic WBC 1 Ur Squamous Epith Cells < 1 Urine Bacteria Rare Hyaline Casts 3-5 H Influenza Typ A,B (EIA) Negative for flu a/b Attending/Attestation - Attestation I have personally seen and examined this patient.: Yes I have fully participated in the care of the patient.: Yes I have reviewed all pertinent clinical information: Yes Notes (Text): 05/13/18 20:10 Patient seen and examined with resident. Case discussed and agreed with assessment and plan of management.
[2018-05-13] MEDS: Fluticasone-Salmeterol 250-50mcg Diskus IH SCH (20:14)
[2018-05-13] MEDS ORDERED: Pneumococcal 23-Valent Vaccine IM ONE (20:26)
[2018-05-13] MEDS ORDERED: Influenza Vaccine (5 YR UP)/PF 60 MCG/0.5 ML SYR IM ONE (20:29)
[2018-05-14 05:56] LABS: BASO # 0.1 K/uL (0.0-0.2); BASO % 0.9 % (0.0-2.0); EOS # 0.4 K/uL (0.0-0.7); HEMOGLOBIN 9.7 g/dL (12.0-18.0); LYMPH # 1.2 K/uL (1.0-4.3); LYMPH % 23.4 % (20.0-40.0); MEAN CELL VOLUME 91.3 fl (80.0-94.0); MEAN CORPUSCULAR HEMOGLOBIN 30.8 pg (27.0-31.0); MEAN CORPUSCULAR HGB CONC 33.7 g/dL (33.0-37.0); MEAN PLATELET VOLUME 8.9 fl (7.2-11.7); MONO # 0.5 K/uL (0.0-0.8); MONO % 9.1 % (0.0-10.0); NEUT # 3.1 K/uL (1.8-7.0); NEUT % 58.6 % (50.0-75.0); NRBC % 0.1 % (0.0-0.0); RBC 3.14 Mil/uL (4.40-5.90); RED CELL DISTRIBUTION WIDTH 15.4 % (11.5-14.5); WHITE BLOOD COUNT 5.3 K/uL (4.8-10.8)
[2018-05-14 06:01] LABS: CALCIUM 9.5 mg/dL (8.4-10.2)
[2018-05-14 06:08] LABS: TROPONIN I 0.066 ng/mL (0.00-0.120)
[2018-05-14] MEDS: Fluticasone-Salmeterol 250-50mcg Diskus IH SCH (08:15)
[2018-05-14] MEDS: Insulin Lispro (humaLOG) 100 Units/ml Inj SC SCH ×2 (08:16→17:02)
--- NOTE | 2018-05-14 08:40 | CARD ---
APPROVED REPORT Date of service: 05/13/2018 EKG Measurement Heart [id number] <Conclusion> Normal sinus rhythm Left ventricular hypertrophy with repolarization abnormality Abnormal ECG
[2018-05-14] MEDS ORDERED: Pantoprazole 40 mg EC Tab PO SCH (09:00)
--- NOTE | 2018-05-14 09:48 | CP.PCM.DIS ---
<Anders LingBryant - Last Filed: 05/14/18 15:12> Provider - Provider Date of Admission: 05/13/18 16:49 Attending physician: Suraj Vincent MD Consults: 05/13/18 20:26 Case Management Referral Routine Comment: Physician Instructions: Reason For Exam: Reason for Referral: Discharge Planning Nursing Referral for Wound Care Routine Comment: Physician Instructions: Reason For Exam: Joel score 15 Time Spent in preparation of Discharge (in minutes): 33 Diagnosis - Discharge Diagnosis (1) DM2 (diabetes mellitus, type 2) Status: Chronic (2) Dizziness Status: Acute (3) HTN (hypertension) Status: Chronic (4) Ischemic stroke Status: Chronic (5) Colon cancer Status: Chronic (6) COPD (chronic obstructive pulmonary disease) Status: Chronic (7) Physical debility Status: Chronic Hospital Course - Lab Results Lab Results: Most Recent Lab Values WBC 5.3 K/uL (4.8-10.8) 05/14/18 04:25 RBC 3.14 Mil/uL (4.40-5.90) L 05/14/18 04:25 Hgb 9.7 g/dL (12.0-18.0) L 05/14/18 04:25 Hct 28.7 % (35.0-51.0) L 05/14/18 04:25 MCV 91.3 fl (80.0-94.0) 05/14/18 04:25 MCH 30.8 pg (27.0-31.0) 05/14/18 04:25 MCHC 33.7 g/dL (33.0-37.0) 05/14/18 04:25 RDW 15.4 % (11.5-14.5) H 05/14/18 04:25 Plt Count 325 K/uL (130-400) 05/14/18 04:25 MPV 8.9 fl (7.2-11.7) 05/14/18 04:25 Neut % (Auto) 58.6 % (50.0-75.0) 05/14/18 04:25 Lymph % (Auto) 23.4 % (20.0-40.0) 05/14/18 04:25 Mercer % (Auto) 9.1 % (0.0-10.0) 05/14/18 04:25 Eos % (Auto) 8.0 % (0.0-4.0) H 05/14/18 04:25 Baso % (Auto) 0.9 % (0.0-2.0) 05/14/18 04:25 Neut # (Auto) 3.1 K/uL (1.8-7.0) 05/14/18 04:25 Lymph # (Auto) 1.2 K/uL (1.0-4.3) 05/14/18 04:25 Mercer # (Auto) 0.5 K/uL (0.0-0.8) 05/14/18 04:25 Eos # (Auto) 0.4 K/uL (0.0-0.7) 05/14/18 04:25 Baso # (Auto) 0.1 K/uL (0.0-0.2) 05/14/18 04:25 pO2 17 mm/Hg (30-55) L 05/13/18 13:40 VBG pH 7.32 (7.32-7.43) 05/13/18 13:40 VBG pCO2 57 mmHg (40-60) 05/13/18 13:40 VBG HCO3 25.7 mmol/L 05/13/18 13:40 VBG Total CO2 31.1 mmol/L (22-28) H 05/13/18 13:40 VBG O2 Sat (Calc) 31.4 % (40-65) L 05/13/18 13:40 VBG Base Excess 2.6 mmol/L (0.0-2.0) H 05/13/18 13:40 VBG Potassium 4.2 mmol/L (3.6-5.2) 05/13/18 13:40 A-a O2 Difference 61.0 mm/Hg 05/13/18 13:40 Sodium 140.0 mmol/L (132-148) 05/13/18 13:40 Chloride 107.0 mmol/L (98-107) 05/13/18 13:40 Glucose 155 mg/dL (75-110) H 05/13/18 13:40 Lactate 0.7 mmol/L (0.7-2.1) 05/13/18 13:40 FiO2 21.0 % 05/13/18 13:40 Crit Value Called To Md abhijeet kelsey 05/13/18 13:40 Crit Value Called By 15 05/13/18 13:40 Crit Value Read Back Y 05/13/18 13:40 Blood Gas Notified Time 1428 05/13/18 13:40 Sodium 140 mmol/l (132-148) 05/14/18 04:25 Potassium 4.3 MMOL/L (3.6-5.0) 05/14/18 04:25 Chloride 105 mmol/L (98-107) 05/14/18 04:25 Carbon Dioxide 29 mmol/L (22-30) 05/14/18 04:25 Anion Gap 10 (10-20) 05/14/18 04:25 BUN 36 mg/dl (9-20) H 05/14/18 04:25 Creatinine 2.0 mg/dl (0.8-1.5) H 05/14/18 04:25 Est GFR ( Amer) 39 05/14/18 04:25 Est GFR (Non-Af Amer) 32 05/14/18 04:25 POC Glucose (mg/dL) 114 mg/dL (65-110) H 05/14/18 05:12 Random Glucose 112 mg/dL (75-110) H 05/14/18 04:25 Calcium 9.5 mg/dL (8.4-10.2) 05/14/18 04:25 Total Bilirubin 0.3 mg/dl (0.2-1.3) 05/13/18 14:05 AST 29 U/L (17-59) 05/13/18 14:05 ALT 31 U/L (21-72) 05/13/18 14:05 Alkaline Phosphatase 165 U/L (38-126) H 05/13/18 14:05 Troponin I 0.0660 ng/mL (0.00-0.120) 05/14/18 04:25 NT-Pro-B Natriuret Pep 3080 pg/ml (0-900) H 05/13/18 14:05 Total Protein 7.4 G/DL (6.3-8.2) 05/13/18 14:05 Albumin 3.9 g/dL (3.5-5.0) 05/13/18 14:05 Globulin 3.4 gm/dL (2.2-3.9) 05/13/18 14:05 Albumin/Globulin Ratio 1.2 (1.0-2.1) 05/13/18 14:05 Triglycerides 143 mg/DL (0-149) 05/14/18 04:25 Cholesterol 130 mg/dL (0-199) 05/14/18 04:25 LDL Cholesterol Direct 53 mg/dL (0-129) 05/14/18 04:25 HDL Cholesterol 38 MG/DL (30-70) 05/14/18 04:25 Venous Blood Potassium 4.2 mmol/L (3.6-5.2) 05/13/18 13:40 Urine Color Yellow (YELLOW) 05/13/18 16:43 Urine Clarity Clear (Clear) 05/13/18 16:43 Urine pH 6.0 (5.0-8.0) 05/13/18 16:43 Ur Specific [place] 1.011 (1.003-1.030) 05/13/18 16:43 Urine Protein 100 mg/dL (NEGATIVE) 05/13/18 16:43 Urine Glucose (UA) 50 mg/dL (NEGATIVE) 05/13/18 16:43 Urine Ketones Negative mg/dL (NEGATIVE) 05/13/18 16:43 Urine Blood Negative (NEGATIVE) 05/13/18 16:43 Urine Nitrate Negative (NEGATIVE) 05/13/18 16:43 Urine Bilirubin Negative (NEGATIVE) 05/13/18 16:43 Urine Urobilinogen 0.2-1.0 mg/dL (0.2-1.0) 05/13/18 16:43 Ur Leukocyte Esterase Neg Micki/uL (Negative) 05/13/18 16:43 Urine RBC (Auto) 3 /hpf (0-3) 05/13/18 16:43 Urine Microscopic WBC 1 /hpf (0-5) 05/13/18 16:43 Ur Squamous Epith Cells < 1 /hpf (0-5) 05/13/18 16:43 Urine Bacteria Rare (<OCC) 05/13/18 16:43 Hyaline Casts 3-5 /hpf (0-2) H 05/13/18 16:43 Influenza Typ A,B (EIA) Negative for flu a/b (NEGATIVE) 05/13/18 16:43 - Hospital Course Hospital Course: 82 year old Male with a PMHx of CAD, HFpEF, DM2, HTN, CVA with right sided residual weakness, COPD and Colon Cancer admitted to [facility] after he was sent from [facility] clinic for evaluation of sudden onset of confusion, diaphoresis, nausea and vomiting while in the clinic. In ED, patient was found oriented to person and place but not to time, his NIHSS 0. Head CT shows no acute pathology, no interval changes. Patient was admitted for evaluation of AMS and possible CHF exacerbation. Since Patient was found to have elevated ProBNP 3080 when reviewed previous labs appears to be chronic elevation of proBNP from his chronic CHF and he is now at his baseline. Patient Cardiac troponin negative x 3 during his stay, EKG no interval changes noted. Patient seen and examined today, hemodinami mikala stable, he states feeling well now, denies CP, MCKEON, SOB, abdominal pain, N/V/D, mildly confused to time, patient appears as his baseline. Patient is for DC home today with instructions to f/u with his PMD at [facility]. Arrangement done for f/u appointment at [facility]. Discharge Exam - Head Exam Head Exam: ATRAUMATIC, NORMAL INSPECTION, NORMOCEPHALIC - Additional Findings Additional findings: - Constitutional Appears: No Acute Distress, Chronically Ill - Head Exam Head Exam: NORMAL INSPECTION - Eye Exam Eye Exam: Normal appearance - ENT Exam ENT Exam: Mucous Membranes Moist - Respiratory Exam Respiratory Exam: Rales (B/L lower lung field), NORMAL BREATHING PATTERN. absent: Rhonchi, Wheezes, Respiratory Distress - Cardiovascular Exam Cardiovascular Exam: REGULAR RHYTHM, +S1, +S2 - GI/Abdominal Exam GI & Abdominal Exam: Normal Bowel Sounds, Soft. absent: Rebound, Tenderness - Extremities Exam Extremities exam: Positive for: normal inspection. Negative for: calf tenderness, pedal edema - Neurological Exam Neurological exam: Alert Additional comments: AAOx2, noted confused to time RUE strength 4/5 RLE 2/5(PMH of CVA, right sided residual weakness), left UE streght 5/5 LE strength 5/5 - Psychiatric Exam Psychiatric exam: Normal Affect - Skin Skin Exam: Normal Color Discharge Plan - Discharge Medications Prescriptions: Carvedilol [Coreg] 6.25 mg PO BID #60 tab - Follow Up Plan Condition: FAIR Disposition: HOME/ ROUTINE Instructions: Altered Mental Status (DC), Renal Failure Diet (DC), Hypertension (DC) Additional Instructions: Follow up appt with on 05/22/18 11:20am Continue taking your home medications as prescribed. Continue following your PMD instructions ED Precautions: Return to the ED if your condition recurs of you experience chest pain, fatigue, shortness of breath, palpitations, severe headache, confusion, nausea, fever, or any other new symptom or concern presents. Referrals: [facility] [Outside] Alexsander Jarvis MD [Resident] - Clinical Quality Measures - CQM - Stroke Antithrombotic Prescribed: Yes Anticoagulation Prescribed for Atrial Flutter, Atrial Fibrillation and History of:: Not Applicable Statin prescribed: Yes - CQM - VTE Did patient receive overlap therapy during hosptialization?: Yes - CQM - Heart Failure Beta-Jaime Prescribed: Carvedilol Will be discharged to: Home Follow Up Date (must be within 7 days from discharge): 05/21/18 (Patient will be called with appoinment date(pending final confirmation)) <Suraj Vincent - Last Filed: 05/14/18 16:33> Provider - Provider Date of Admission: 05/13/18 16:49 Attending physician: Suraj Vincent MD Consults: 05/13/18 20:26 Case Management Referral Routine Comment: Physician Instructions: Reason For Exam: Reason for Referral: Discharge Planning Nursing Referral for Wound Care Routine Comment: Physician Instructions: Reason For Exam: Joel score 15 Hospital Course - Lab Results Lab Results: Micro Results 05/13/18 16:03 Blood-Venous Blood Culture - Preliminary NO GROWTH AFTER 24 HOURS 05/13/18 14:05 Blood-Venous Blood Culture - Preliminary NO GROWTH AFTER 24 HOURS Most Recent Lab Values WBC 5.3 K/uL (4.8-10.8) 05/14/18 04:25 RBC 3.14 Mil/uL (4.40-5.90) L 05/14/18 04:25 Hgb 9.7 g/dL (12.0-18.0) L 05/14/18 04:25 Hct 28.7 % (35.0-51.0) L 05/14/18 04:25 MCV 91.3 fl (80.0-94.0) 05/14/18 04:25 MCH 30.8 pg (27.0-31.0) 05/14/18 04:25 MCHC 33.7 g/dL (33.0-37.0) 05/14/18 04:25 RDW 15.4 % (11.5-14.5) H 05/14/18 04:25 Plt Count 325 K/uL (130-400) 05/14/18 04:25 MPV 8.9 fl (7.2-11.7) 05/14/18 04:25 Neut % (Auto) 58.6 % (50.0-75.0) 05/14/18 04:25 Lymph % (Auto) 23.4 % (20.0-40.0) 05/14/18 04:25 Mercer % (Auto) 9.1 % (0.0-10.0) 05/14/18 04:25 Eos % (Auto) 8.0 % (0.0-4.0) H 05/14/18 04:25 Baso % (Auto) 0.9 % (0.0-2.0) 05/14/18 04:25 Neut # (Auto) 3.1 K/uL (1.8-7.0) 05/14/18 04:25 Lymph # (Auto) 1.2 K/uL (1.0-4.3) 05/14/18 04:25 Mercer # (Auto) 0.5 K/uL (0.0-0.8) 05/14/18 04:25 Eos # (Auto) 0.4 K/uL (0.0-0.7) 05/14/18 04:25 Baso # (Auto) 0.1 K/uL (0.0-0.2) 05/14/18 04:25 pO2 17 mm/Hg (30-55) L 05/13/18 13:40 VBG pH 7.32 (7.32-7.43) 05/13/18 13:40 VBG pCO2 57 mmHg (40-60) 05/13/18 13:40 VBG HCO3 25.7 mmol/L 05/13/18 13:40 VBG Total CO2 31.1 mmol/L (22-28) H 05/13/18 13:40 VBG O2 Sat (Calc) 31.4 % (40-65) L 05/13/18 13:40 VBG Base Excess 2.6 mmol/L (0.0-2.0) H 05/13/18 13:40 VBG Potassium 4.2 mmol/L (3.6-5.2) 05/13/18 13:40 A-a O2 Difference 61.0 mm/Hg 05/13/18 13:40 Sodium 140.0 mmol/L (132-148) 05/13/18 13:40 Chloride 107.0 mmol/L (98-107) 05/13/18 13:40 Glucose 155 mg/dL (75-110) H 05/13/18 13:40 Lactate 0.7 mmol/L (0.7-2.1) 05/13/18 13:40 FiO2 21.0 % 05/13/18 13:40 Crit Value Called To Md abhijeet kelsey 05/13/18 13:40 Crit Value Called By Jaye 05/13/18 13:40 Crit Value Read Back Y 05/13/18 13:40 Blood Gas Notified Time 1428 05/13/18 13:40 Sodium 140 mmol/l (132-148) 05/14/18 04:25 Potassium 4.3 MMOL/L (3.6-5.0) 05/14/18 04:25 Chloride 105 mmol/L (98-107) 05/14/18 04:25 Carbon Dioxide 29 mmol/L (22-30) 05/14/18 04:25 Anion Gap 10 (10-20) 05/14/18 04:25 BUN 36 mg/dl (9-20) H 05/14/18 04:25 Creatinine 2.0 mg/dl (0.8-1.5) H 05/14/18 04:25 Est GFR ( Amer) 39 05/14/18 04:25 Est GFR (Non-Af Amer) 32 05/14/18 04:25 POC Glucose (mg/dL) 183 mg/dL (65-110) H 05/14/18 16:06 Random Glucose 112 mg/dL (75-110) H 05/14/18 04:25 Hemoglobin A1c 6.7 % (4.2-6.5) H 05/14/18 04:25 Calcium 9.5 mg/dL (8.4-10.2) 05/14/18 04:25 Total Bilirubin 0.3 mg/dl (0.2-1.3) 05/13/18 14:05 AST 29 U/L (17-59) 05/13/18 14:05 ALT 31 U/L (21-72) 05/13/18 14:05 Alkaline Phosphatase 165 U/L (38-126) H 05/13/18 14:05 Troponin I 0.0660 ng/mL (0.00-0.120) 05/14/18 04:25 NT-Pro-B Natriuret Pep 3080 pg/ml (0-900) H 05/13/18 14:05 Total Protein 7.4 G/DL (6.3-8.2) 05/13/18 14:05 Albumin 3.9 g/dL (3.5-5.0) 05/13/18 14:05 Globulin 3.4 gm/dL (2.2-3.9) 05/13/18 14:05 Albumin/Globulin Ratio 1.2 (1.0-2.1) 05/13/18 14:05 Triglycerides 143 mg/DL (0-149) 05/14/18 04:25 Cholesterol 130 mg/dL (0-199) 05/14/18 04:25 LDL Cholesterol Direct 53 mg/dL (0-129) 05/14/18 04:25 HDL Cholesterol 38 MG/DL (30-70) 05/14/18 04:25 Venous Blood Potassium 4.2 mmol/L (3.6-5.2) 05/13/18 13:40 Urine Color Yellow (YELLOW) 05/13/18 16:43 Urine Clarity Clear (Clear) 05/13/18 16:43 Urine pH 6.0 (5.0-8.0) 05/13/18 16:43 Ur Specific [place] 1.011 (1.003-1.030) 05/13/18 16:43 Urine Protein 100 mg/dL (NEGATIVE) 05/13/18 16:43 Urine Glucose (UA) 50 mg/dL (NEGATIVE) 05/13/18 16:43 Urine Ketones Negative mg/dL (NEGATIVE) 05/13/18 16:43 Urine Blood Negative (NEGATIVE) 05/13/18 16:43 Urine Nitrate Negative (NEGATIVE) 05/13/18 16:43 Urine Bilirubin Negative (NEGATIVE) 05/13/18 16:43 Urine Urobilinogen 0.2-1.0 mg/dL (0.2-1.0) 05/13/18 16:43 Ur Leukocyte Esterase Neg Micki/uL (Negative) 05/13/18 16:43 Urine RBC (Auto) 3 /hpf (0-3) 05/13/18 16:43 Urine Microscopic WBC 1 /hpf (0-5) 05/13/18 16:43 Ur Squamous Epith Cells < 1 /hpf (0-5) 05/13/18 16:43 Urine Bacteria Rare (<OCC) 05/13/18 16:43 Hyaline Casts 3-5 /hpf (0-2) H 05/13/18 16:43 Influenza Typ A,B (EIA) Negative for flu a/b (NEGATIVE) 05/13/18 16:43 Attending/Attestation - Attestation I have personally seen and examined this patient.: Yes I have fully participated in the care of the patient.: Yes I have reviewed all pertinent clinical information, including history, physical exam and plan: Yes Notes (Text): 05/14/18 16:33 Patient seen and examined with resident. Case discussed and agreed with assessment. Patient discharged in stable condition.
[2018-05-14 16:31] VITALS: BP 169/65; PULSE 67; RESP 20; TEMP 97.7; O2SAT 97
== END 2018-05-14 17:10 | disposition home or self-care (01) ==
LOC: H.ER 13:03 → H.ERHOLD 16:49 → H.TEL 18:51
DX: I13.0 Hypertensive heart and chronic kidney disease with heart failure and stage 1 through stage 4 chronic kidney disease, or unspecified chronic kidney disease (principal); N17.9 Acute kidney failure, unspecified; I25.10 Atherosclerotic heart disease of native coronary artery without angina pectoris; I69.351 Hemiplegia and hemiparesis following cerebral infarction affecting right dominant side; F03.90 Unspecified dementia, unspecified severity, without behavioral disturbance, psychotic disturbance, mood disturbance, and anxiety; E78.00 Pure hypercholesterolemia, unspecified; E11.22 Type 2 diabetes mellitus with diabetic chronic kidney disease; E78.5 Hyperlipidemia, unspecified; E11.319 Type 2 diabetes mellitus with unspecified diabetic retinopathy without macular edema; H54.62 Unqualified visual loss, left eye, normal vision right eye; Z79.02 Long term (current) use of antithrombotics/antiplatelets; Z79.82 Long term (current) use of aspirin; Z95.5 Presence of coronary angioplasty implant and graft; J44.9 Chronic obstructive pulmonary disease, unspecified; Z85.038 Personal history of other malignant neoplasm of large intestine; Z88.5 Allergy status to narcotic agent; Z87.891 Personal history of nicotine dependence; R53.81 Other malaise; N18.3 Chronic kidney disease, stage 3 (moderate); Z79.4 Long term (current) use of insulin; I50.33 Acute on chronic diastolic (congestive) heart failure; R41.82 Altered mental status, unspecified; Z23 Encounter for immunization
CPT/HCPCS: 36415; 70450; 71046; 80048; 80053; 80061; 81003; 82803; 82948; 83036; 83880; 84484; 85025; 87040; 87804; 90732; 93005; 96374; 99285; G0009; G0378; J1644; J1940